=== PATIENT | female | born 1945 | race Two or more races ===

== ENCOUNTER 2016-12-30 15:56 | Inpatient (IN) | payer MEDICARE, OTHER ==
[~2016-12-30] VITALS: Ht 170.2 cm; Wt 113.4 kg
[~2016-12-30 15:56] MED LIST: ASPIRIN EC81 MG ORAL; LEVAQUIN250 M1 ORAL; MEDROL4 MG ORAL; NORCO 5-325 TA1 EAC1 ORAL; NORCO 5-325 TA1 EACH ORAL; SPIRIVA18 MCG INH; THEOPHYLLINE A100 MG ORAL
[2016-12-30] MEDS ORDERED: Ipratropium 0.02% Inh Soln 2.5ml UD HHN ONE (16:15)
[2016-12-30] MEDS ORDERED: cefTRIAXone 1 GM in NS 55 ML IVPB ONE (16:15)
[2016-12-30] MEDS ORDERED: Solu-MEDROL 125mg Inj IVP ONE (16:15)
[2016-12-30] MEDS: Albuterol ud Inhalation HHN SCH ×2 (16:34→16:35)
[2016-12-30 17:08] LABS: BASOPHILS % (AUTO) 2.2 % (0.0-2.0); EOSINOPHILS % (AUTO) 7.6 % (0.0-3.0); MEAN CORPUSCULAR HEMOGLOBIN 30.2 PG (27.0-31.0); MEAN CORPUSCULAR VOLUME 91 FL (80-99); MEAN PLATELET VOLUME 5.1 FL (6.5-10.1); MONOCYTES % (AUTO) 14.6 % (1.0-10.0); NEUTROPHILS % (AUTO) 55.7 % (45.0-75.0); PLATELET COUNT 337 K/UL (150-450); RED BLOOD COUNT 3.54 M/UL (4.20-5.40); RED CELL DISTRIBUTION WIDTH 13.5 % (11.6-14.8); WHITE BLOOD COUNT 7.1 K/UL (4.8-10.8)
[2016-12-30 17:11] LABS: APPEARANCE,URINE CLEAR; KETONES,URINE NEGATIVE (NEGATIVE); LEUKOCYTE ESTERASE ,URINE 1+ (NEGATIVE); NITRITE,URINE NEGATIVE (NEGATIVE); PH,URINE 6 (4.5-8.0); PROTEIN,URINE NEGATIVE (NEGATIVE); UROBILINOGEN,URINE NORMAL MG/DL (0.0-1.0)
[2016-12-30 17:22] LABS: BACTERIA,URINE FEW /HPF; RBC,URINE 0-2 /HPF (0 - 2); SQUAMOUS EPITHELIAL CELL,UR FEW /LPF (NONE/OCC)
[2016-12-30 17:24] LABS: TROPONIN I < 0.30 ng/mL (<=0.30)
[2016-12-30 17:45] LABS: ALANINE AMINOTRANSFERASE 11 U/L (3-33); ANION GAP 14 (5-15); ASPARTATE AMINO TRANSFERASE 23 U/L (5-40); CALCIUM 8.7 mg/dL (8.6-10.2); CARBON DIOXIDE 25 mEQ/L (20-30); CHLORIDE 79 mEQ/L (98-107); CREATININE 0.7 mg/dL (0.5-0.9); HEMOLYSIS 62; POTASSIUM 5.5 mEQ/L (3.4-4.9)
[2016-12-30 17:49] VITALS: BP 138/54
[2016-12-30 17:56] LABS: CKMB 7.8 ng/mL (< 3.8)
[2016-12-30 18:00] LABS: SODIUM 118 mEQ/L (135-145)
[2016-12-30] MEDS ORDERED: Vancomycin 1250mg/D5W 250ml 250 ML IVPB SCH (18:00)
--- NOTE | 2016-12-30 18:01 | Emergency Room Report ---
History of Present Illness General Chief Complaint: Head, Face, Neck Trauma Source: Patient Present Illness HPI 71-year-old female history of COPD and hypertension presenting with shortness of breath for one week. Patient states she was at 711, felt very weak, secondary to chronic knee pain, sat down. Someone called 911 and EMS brought her to the emergency room. Patient states that she has not used any medication for one week because she ran out. Does not have any inhalers. Patient reports chronic cough no change in sputum. Denies any fever or chills. No chest pain. Patient states she is shortness of breath at rest and on exertion. Patient states that she had a right thigh cellulitis treated at an outside hospital a few weeks ago, but states that it is still red and painful. Allergies: Coded Allergies: No Known Allergies (Unverified , 12/10/15) Patient History Last Menstrual Period: na Nursing Documentation-PMH Past Medical History: No History, Except For Hx Cardiac Problems: Yes Hx Hypertension: Yes Hx Asthma: Yes Hx COPD: Yes Hx Diabetes: Yes Hx Cancer: No Hx Gastrointestinal Problems: No Hx Neurological Problems: No Hx Seizures: Yes Physical Exam Vital Signs Date Time Temp Pulse Resp B/P (MAP) Pulse Ox O2 Delivery O2 Flow Rate FiO2 12/30/16 15:37 98.6 104 20 138/54 98 Room Air 12/30/16 16:40 21 Medical Decision Making Diagnostic Impression: Primary Impression: COPD exacerbation Additional Impressions: Cellulitis of right leg Hyponatremia Hyperkalemia ER Course 71 yo female with pmhx of COPD p/w SOB for 3 days. Also with RLE cellulitis apparently Tx ~ 1 week ago. 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 Patient has been treated with combivent x 3, steroids, antibiotics. CXR reveals no acute infiltrate Repeat lung auscultation reveals persistent mild wheezing but improved Patent's remains tachypneic however speaking in complete sentences ABX given to cover for copd exacerbation and RLE cellulitis hyperK - meds given hyponatremic - patient remains awake alert oritned x 3 Disposition: Patient will be admitted to tele Patient remains critical with vital signs revealing tachypnea and hypoxia. Patient requires close monitoring of respiratory status, and nebulizer treatment. Patient also requires close monitoring of electrolyte disturbance IV abx D/W hospitalist Dr Martinez who has accepted admission Please note that this Emergency Department Report was dictated using [employer] supervisor technology software, occasionally this can lead to erroneous entry secondary to interpretation by the dictation equipment. Laboratory Tests Test 12/30/16 16:40 12/30/16 16:50 Urine Color Pale yellow Urine Appearance Clear Urine pH 6 (4.5-8.0) Urine Specific [place] 1.015 (1.005-1.035) Urine Protein Negative (NEGATIVE) Urine Glucose (UA) Negative (NEGATIVE) Urine Ketones Negative (NEGATIVE) Urine Occult Blood Negative (NEGATIVE) Urine Nitrite Negative (NEGATIVE) Urine Bilirubin Negative (NEGATIVE) Urine Urobilinogen Normal MG/DL (0.0-1.0) Urine Leukocyte Esterase 1+ (NEGATIVE) H Urine RBC 0-2 /HPF (0 - 2) Urine WBC 2-4 /HPF (0 - 2) Urine Squamous Epithelial Cells Few /LPF (NONE/OCC) Urine Bacteria Few /HPF (NONE) White Blood Count 7.1 K/UL (4.8-10.8) Red Blood Count 3.54 M/UL (4.20-5.40) L Hemoglobin 10.7 G/DL (12.0-16.0) L Hematocrit 32.4 % (37.0-47.0) L Mean Corpuscular Volume 91 FL (80-99) Mean Corpuscular Hemoglobin 30.2 PG (27.0-31.0) Mean Corpuscular Hemoglobin Concent 33.0 G/DL (32.0-36.0) Red Cell Distribution Width 13.5 % (11.6-14.8) Platelet Count 337 K/UL (150-450) Mean Platelet Volume 5.1 FL (6.5-10.1) L Neutrophils (%) (Auto) 55.7 % (45.0-75.0) Lymphocytes (%) (Auto) 20.0 % (20.0-45.0) Monocytes (%) (Auto) 14.6 % (1.0-10.0) H Eosinophils (%) (Auto) 7.6 % (0.0-3.0) H Basophils (%) (Auto) 2.2 % (0.0-2.0) H Sodium Level 118 mEQ/L (135-145) *L Potassium Level 5.5 mEQ/L (3.4-4.9) H Chloride Level 79 mEQ/L (98-107) L Carbon Dioxide Level 25 mEQ/L (20-30) Anion Gap 14 (5-15) Blood Urea Nitrogen 7 mg/dL (7-23) Creatinine 0.7 mg/dL (0.5-0.9) Estimate Glomerular Filtration Rate mL/min (>60) Glucose Level 95 mg/dL (74-106) Calcium Level 8.7 mg/dL (8.6-10.2) Total Bilirubin 0.5 mg/dL (0.0-1.2) Aspartate Amino Transferase (AST) 23 U/L (5-40) Alanine Aminotransferase (ALT) 11 U/L (3-33) Alkaline Phosphatase 110 U/L (35-104) H Total Creatine Kinase 160 U/L (26-140) H Creatine Kinase MB 7.8 ng/mL (< 3.8) H Creatine Kinase MB Relative Index 4.8 Troponin I < 0.30 ng/mL (<=0.30) Pro-B-Type Natriuretic Peptide 147 pg/mL (0-125) H Total Protein 7.0 g/dL (6.6-8.7) Albumin 3.6 g/dL (3.5-5.2) Globulin 3.4 g/dL Albumin/Globulin Ratio 1.0 (1.0-2.7) EKG Diagnostic Results Rate: normal Rhythm: NSR ST Segments: other - mild peaked T waves Rhythm Strip Diag. Results EP Interpretation: yes Rate: 90 Rhythm: NSR, no PVC's, no ectopy Chest X-Ray Diagnostic Results Chest X-Ray Diagnostic Results : Chest X-Ray Ordered: Yes # of Views/Limited/Complete: 1 View Indication: Shortness of Breath EP Interpretation: Yes Interpretation: no consolidation, no effusion, no pneumothorax, other - hyperinflated lungs Impression: Other - hyper inflated lungs Interpreting ER Provider: Electronically signed by Faustina Lazo MD Last Vital Signs Date Time Temp Pulse Resp B/P (MAP) Pulse Ox O2 Delivery O2 Flow Rate FiO2 12/30/16 17:49 98.6 70 20 138/54 100 Room Air 21 Disposition: ADMITTED INPATIENT Condition: Critical Referrals: NON PHYSICIAN (PCP) Faustina Lazo M.D. Dec 30, 2016 18:01
[2016-12-30] MEDS ORDERED: Calcium Gluconate 1gm/10ml vial IVP ONE (18:15)
[2016-12-30 19:49] VITALS: BP 142/65
[2016-12-30 20:00] VITALS: BP 161/74
[2016-12-30] MEDS ORDERED: Morphine Sulfate 4mg/ml Inj IVP ONE (20:00)
[2016-12-30] MEDS ORDERED: Norco 5mg/325mg tab ORAL PRN (20:30)
[2016-12-30] MEDS ORDERED: DuoNeb 0.5-3(2.5)mg/3ml neb HHN PRN (20:30)
[2016-12-30 20:40] VITALS: BP 147/55
[2016-12-30] MEDS ORDERED: Thiamine 100mg tab ORAL SCH (20:45)
[2016-12-30] MEDS ORDERED: LORazepam Inj 2mg/ml 1ml IV PRN (20:45)
[2016-12-30 22:31] LABS: ANION GAP 8 (5-15); CALCIUM 9.9 mg/dL (8.6-10.2); CARBON DIOXIDE 31 mEQ/L (20-30); CHLORIDE 84 mEQ/L (98-107); CREATININE 0.6 mg/dL (0.5-0.9); HEMOLYSIS 1; SODIUM 123 mEQ/L (135-145)
[2016-12-30] MEDS: Aspirin EC 81mg tab ORAL SCH (22:39)
[2016-12-30] MEDS: Thiamine 100mg tab ORAL SCH (22:39)
[2016-12-30] MEDS: Azithromycin 500 MG in D5W 275 ML IV SCH (22:40)
[2016-12-30] MEDS: Heparin 5000 units/ml inj SUBQ SCH (22:41)
[2016-12-30 22:42] LABS: TROPONIN I < 0.30 ng/mL (<=0.30)
[2016-12-31] VITALS: BP 142/72
[2016-12-31] MEDS: Azithromycin 500 MG in D5W 275 ML IV SCH (03:00)
[2016-12-31 04:00] VITALS: BP 161/83
[2016-12-31 08:00] VITALS: BP 154/82
[2016-12-31 08:06] LABS: MEAN CORPUSCULAR HEMOGLOBIN 30.3 PG (27.0-31.0); MEAN CORPUSCULAR HGB CONC 32.5 G/DL (32.0-36.0); MEAN CORPUSCULAR VOLUME 93 FL (80-99); MEAN PLATELET VOLUME 4.8 FL (6.5-10.1); PLATELET COUNT 451 K/UL (150-450); RED BLOOD COUNT 3.95 M/UL (4.20-5.40); RED CELL DISTRIBUTION WIDTH 13.5 % (11.6-14.8); WHITE BLOOD COUNT 5.6 K/UL (4.8-10.8)
[2016-12-31] MEDS ORDERED: Promethazine/Codeine 5ml UD ORAL PRN (08:30)
[2016-12-31 08:32] LABS: ALANINE AMINOTRANSFERASE 11 U/L (3-33); ANION GAP 13 (5-15); ASPARTATE AMINO TRANSFERASE 15 U/L (5-40); CALCIUM 10.5 mg/dL (8.6-10.2); CARBON DIOXIDE 29 mEQ/L (20-30); CHLORIDE 89 mEQ/L (98-107); CREATININE 0.9 mg/dL (0.5-0.9); HEMOLYSIS 0; POTASSIUM 5.6 mEQ/L (3.4-4.9); SODIUM 131 mEQ/L (135-145)
--- NOTE | 2016-12-31 08:44 | History & Physical ---
History and Physical History & Physicial seen and examined. Dictation completed Sebastian Martinez MD Dec 31, 2016 08:44
--- NOTE | 2016-12-31 08:46 | General Progress Note ---
Assessment/Plan Status: stable Assessment/Plan 1- COPD exacerbation 2- Imbalance 3- DT'S 4. Homeless 5. HypoNatremia 5. Anxiety//Depression Plan: Psych ID nephro consulted Subjective ROS Limited/Unobtainable: No Constitutional: Reports: malaise HEENT: Reports: no symptoms Cardiovascular: Reports: no symptoms Respiratory: Reports: no symptoms Allergies: Coded Allergies: No Known Allergies (Unverified , 12/10/15) Objective Last 24 Hour Vital Signs Date Time Temp Pulse Resp B/P (MAP) Pulse Ox O2 Delivery O2 Flow Rate FiO2 12/31/16 07:32 95 20 Room Air 12/31/16 04:00 98.2 93 22 161/83 94 Room Air 12/31/16 04:00 95 12/31/16 00:00 99 12/31/16 00:00 98.8 101 23 142/72 Room Air 12/30/16 20:40 98.4 93 22 147/55 100 Room Air 12/30/16 20:40 98.6 93 22 147/55 100 Room Air 12/30/16 20:35 98.4 12/30/16 20:00 98.4 92 22 161/74 98 Room Air 21 12/30/16 20:00 98.4 92 22 161/74 98 Room Air 12/30/16 19:49 98.4 85 20 142/65 100 Room Air 12/30/16 17:49 98.6 70 20 138/54 100 Room Air 21 12/30/16 16:55 96 20 100 Room Air 12/30/16 16:55 96 22 100 Room Air 12/30/16 16:40 98 20 100 Room Air 12/30/16 16:40 98 20 100 Room Air 12/30/16 16:28 101 20 Room Air 12/30/16 16:25 101 20 95 Room Air 12/30/16 15:37 98.6 104 20 138/54 98 Room Air Laboratory Tests 12/30/16 16:40: Urine Color Pale yellow, Urine Appearance Clear, Urine pH 6, Urine Specific [place] 1.015, Urine Protein Negative, Urine Glucose (UA) Negative, Urine Ketones Negative, Urine Occult Blood Negative, Urine Nitrite Negative, Urine Bilirubin Negative, Urine Urobilinogen Normal, Urine Leukocyte Esterase 1+H, Urine RBC 0-2, Urine WBC 2-4, Urine Squamous Epithelial Cells Few, Urine Bacteria Few 12/30/16 16:50: White Blood Count 7.1, Red Blood Count 3.54L, Hemoglobin 10.7L, Hematocrit 32.4L , Mean Corpuscular Volume 91, Mean Corpuscular Hemoglobin 30.2, Mean Corpuscular Hemoglobin Concent 33.0, Red Cell Distribution Width 13.5, Platelet Count 337, Mean Platelet Volume 5.1L, Neutrophils (%) (Auto) 55.7, Lymphocytes ( %) (Auto) 20.0, Monocytes (%) (Auto) 14.6H, Eosinophils (%) (Auto) 7.6H, Basophils (%) (Auto) 2.2H, D-Dimer 1033H, Sodium Level 118*L, Potassium Level 5.5H, Chloride Level 79L, Carbon Dioxide Level 25, Anion Gap 14, Blood Urea Nitrogen 7, Creatinine 0.7, Estimat Glomerular Filtration Rate , Glucose Level 95, Calcium Level 8.7, Total Bilirubin 0.5, Aspartate Amino Transf (AST/SGOT) 23 , Alanine Aminotransferase (ALT/SGPT) 11, Alkaline Phosphatase 110H, Total Creatine Kinase 160H, Creatine Kinase MB 7.8H, Creatine Kinase MB Relative Index 4.8, Troponin I < 0.30, Pro-B-Type Natriuretic Peptide 147H, Total Protein 7.0, Albumin 3.6, Globulin 3.4, Albumin/Globulin Ratio 1.0 12/30/16 21:15: Sodium Level 123L, Potassium Level 5.0H, Chloride Level 84L, Carbon Dioxide Level 31H, Anion Gap 8, Blood Urea Nitrogen 7, Creatinine 0.6, Estimat Glomerular Filtration Rate , Glucose Level 92, Calcium Level 9.9, Troponin I < 0.30 12/31/16 07:30: White Blood Count 5.6, Red Blood Count 3.95L, Hemoglobin 12.0, Hematocrit 36.8L , Mean Corpuscular Volume 93, Mean Corpuscular Hemoglobin 30.3, Mean Corpuscular Hemoglobin Concent 32.5, Red Cell Distribution Width 13.5, Platelet Count 451H, Mean Platelet Volume 4.8L, Neutrophils (%) (Auto) , Lymphocytes (%) (Auto) , Monocytes (%) (Auto) , Eosinophils (%) (Auto) , Basophils (%) (Auto) , Sodium Level [Pending], Potassium Level [Pending], Chloride Level [Pending], Carbon Dioxide Level [Pending], Blood Urea Nitrogen [Pending], Creatinine [ Pending], Estimat Glomerular Filtration Rate [Pending], Glucose Level [Pending] , Calcium Level [Pending], Total Bilirubin [Pending], Aspartate Amino Transf ( AST/SGOT) [Pending], Alanine Aminotransferase (ALT/SGPT) [Pending], Alkaline Phosphatase [Pending], Total Protein [Pending], Albumin [Pending], Globulin [ Pending], Neutrophils % (Manual) [Pending], Lymphocytes % (Manual) [Pending], Platelet Estimate [Pending], Platelet Morphology [Pending] Height (Feet): 5 Height (Inches): 7.00 Weight (Pounds): 250 General Appearance: no apparent distress EENT: PERRL/EOMI Neck: supple Cardiovascular: normal rate Respiratory/Chest: lungs clear Abdomen: soft Extremities: non-tender Neurologic: shaft tender II-XII grossly normal, other - depressed, anxious Sebastian Martinez MD Dec 31, 2016 08:46
[2016-12-31] MEDS ORDERED: Solu-MEDROL 40mg Inj IVP SCH (09:00)
[2016-12-31] MEDS ORDERED: LORazepam 1mg tab ORAL PRN (09:00)
[2016-12-31] MEDS ORDERED: chlordiazePOXIDE 25mg Cap ORAL PRN ×2 (09:00→23:45)
[2016-12-31] MEDS: Aspirin EC 81mg tab ORAL SCH (09:37)
[2016-12-31] MEDS: Thiamine 100mg tab ORAL SCH (09:38)
[2016-12-31] MEDS: Heparin 5000 units/ml inj SUBQ SCH ×2 (09:41→21:41)
[2016-12-31 09:51] LABS: INR 0.9 (0.9-1.1); PROTHROMBIN TIME 9.8 SEC (9.30-11.50)
[2016-12-31 09:51] LABS: BAND NEUTROPHILS % (MANUAL) 0 % (0-8); BASOPHILS % (MANUAL) 0 % (0-2); EOSINOPHILS % (MANUAL) 0 % (0-3); LYMPHOCYTES % (MANUAL) 9 % (20-45); NEUTROPHILS % (MANUAL) 89 % (45-75); PLATELET ESTIMATE ADEQUATE; PLATELET MORPHOLOGY NORMAL; TOTAL CELLS COUNTED 100
[2016-12-31 10:04] LABS: PATH BLOOD SMEAR/OMC SENT TO PATHOLOGIST; RETICULOCYTE COUNT 1.1 % (0.0-2.0)
[2016-12-31 10:19] LABS: ERYTHROCYTE SEDIMENTATION RATE 61 MM/HR (0-30)
--- NOTE | 2016-12-31 11:23 | Diagnostic Imaging Report ---
Indication: Chest pain Technique: One view of the chest Comparison: 03/18/2016 Findings: Lungs and pleural spaces are clear. Heart size is upper limits of normal. Previously demonstrated basilar atelectasis or consolidation is no longer evident. Lucencies in the bilateral lung apices may reflect hyperinflation Impression: No definite acute process Possible COPD changes This agrees with the preliminary interpretation provided overnight by [facility] teleradiology service.
--- NOTE | 2016-12-31 11:23 | Consultation ---
Consult Note Consult Note asked to maryal for low Na 71-year-old female history of COPD and hypertension presenting with shortness of breath for one week. Patient states she was at 711, felt very weak, secondary to chronic knee pain, sat down. Someone called 911 and EMS brought her to the emergency room. Patient states that she has not used any medication for one week because she ran out. Does not have any inhalers. Patient reports chronic cough no change in sputum. Denies any fever or chills. No chest pain. Patient states she is shortness of breath at rest and on exertion. Patient states that she had a right thigh cellulitis treated at an outside hospital a few weeks ago, but states that it is still red and painful. Past Medical History: Hx Cardiac Problems: Yes Hx Hypertension: Yes Hx Asthma: Yes Hx COPD: Yes Hx Diabetes: Yes Hx Seizures: Yes Assessment/Plan 1- COPD exacerbation 2- Imbalance 3- DT'S 4. Homeless 5. HypoNatremia, unclear etiology- likely depletional- fairly corrected by saline now- 6. Anxiety//Depression 7. High K likely poor Phlebotomy and related hemolysis 8. HTN Plan: Librium - Norvas Breathing Treatment Pulmonary support monitor HENRIQUE Sierra Dec 31, 2016 11:23
[2016-12-31] MEDS ORDERED: chlordiazePOXIDE 25mg Cap ORAL SCH (11:45)
[2016-12-31 11:59] LABS: CHOLESTEROL/HDL RATIO 2.1 (3.3-4.4); HEMOGLOBIN A1C 5.6 % (< 6.0)
[2016-12-31 12:00] VITALS: BP 154/80
[2016-12-31] MEDS ORDERED: PredniSONE 20mg tab ORAL SCH (12:00)
[2016-12-31] MEDS ORDERED: PredniSONE 20mg tab ORAL ONE (12:00)
--- NOTE | 2016-12-31 12:33 | Consultation ---
History of Present Illness General Date patient seen: Dec 31, 2016 Chief Complaint: Head, Face, Neck Trauma Referring physician: Dr. Martinez Reason for Consultation: dysnea Present Illness HPI 71-year-old female history of COPD and hypertension presenting with shortness of breath for one week. P Someone called 911 and EMS brought her to the emergency room. Patient reports chronic cough no change in sputum. Denies any fever or chills. No chest pain. She is shortness of breath at rest and on exertion. She had a right thigh cellulitis treated at an outside hospital a few weeks ago, but states that it is still red and painful. Allergies: Coded Allergies: No Known Allergies (Unverified , 12/10/15) Medication History Scheduled Aspirin Ec* (Aspirin Ec*), 81 MG ORAL DAILY, (Reported) Levofloxacin* (Levaquin*), 250 MG ORAL DAILY Methylprednisolone* (Medrol*), 4 MG ORAL DAILY Theophylline (Theodur*), 100 MG ORAL EVERY 12 HOURS Tiotropium [place]* (Spiriva*), 1 PUFF INH DAILY, (Reported) Scheduled PRN Hydrocodone Bit/Acetaminophen 5-325* (Redmond 5-325 Tablet*), 1 TAB ORAL Q4H PRN for For Pain Hydrocodone Bit/Acetaminophen 5-325* ([place] 5-325*), 1 TAB ORAL Q4H PRN for For Pain Patient History Healthcare decision maker Resuscitation status Full Code Advanced Directive on File Past Medical/Surgical History Past Medical/Surgical History: (1) HTN (hypertension) (2) Alcohol dependence Review of Systems All Other Systems: negative except mentioned in HPI Physical Exam General Appearance: WD/WN Lines, tubes and drains: peripheral HEENT: normocephalic, atraumatic Neck: non-tender, normal alignment Respiratory/Chest: chest wall non-tender, lungs clear Breasts: no masses Cardiovascular/Chest: normal peripheral pulses Abdomen: normal bowel sounds, non tender Extremities: normal range of motion Skin Exam: normal pigmentation Last 24 Hour Vital Signs Date Time Temp Pulse Resp B/P (MAP) Pulse Ox O2 Delivery O2 Flow Rate FiO2 12/31/16 12:13 100 154/82 12/31/16 12:00 97.9 93 21 154/80 95 Room Air 12/31/16 11:30 100 20 100 Room Air 21 12/31/16 11:25 101 20 100 Room Air 12/31/16 08:00 98.1 99 21 154/82 98 Room Air 12/31/16 07:44 107 12/31/16 07:32 95 20 Room Air 12/31/16 04:00 98.2 93 22 161/83 94 Room Air 12/31/16 04:00 95 12/31/16 00:00 99 12/31/16 00:00 98.8 101 23 142/72 Room Air 12/30/16 20:40 98.4 93 22 147/55 100 Room Air 12/30/16 20:40 98.6 93 22 147/55 100 Room Air 21 12/30/16 20:35 98.4 12/30/16 20:00 98.4 92 22 161/74 98 Room Air 21 12/30/16 20:00 98.4 92 22 161/74 98 Room Air 12/30/16 19:49 98.4 85 20 142/65 100 Room Air 12/30/16 17:49 98.6 70 20 138/54 100 Room Air 12/30/16 16:55 96 20 100 Room Air 12/30/16 16:55 96 22 100 Room Air 12/30/16 16:40 98 20 100 Room Air 12/30/16 16:40 98 20 100 Room Air 21 12/30/16 16:28 101 20 Room Air 12/30/16 16:25 101 20 95 Room Air 12/30/16 15:37 98.6 104 20 138/54 98 Room Air Laboratory Tests Test 12/30/16 16:40 12/30/16 16:50 12/30/16 21:15 12/31/16 07:30 Urine Color Pale yellow Urine Appearance Clear Urine pH 6 (4.5-8.0) Urine Specific [place] 1.015 (1.005-1.035) Urine Protein Negative (NEGATIVE) Urine Glucose (UA) Negative (NEGATIVE) Urine Ketones Negative (NEGATIVE) Urine Occult Blood Negative (NEGATIVE) Urine Nitrite Negative (NEGATIVE) Urine Bilirubin Negative (NEGATIVE) Urine Urobilinogen Normal MG/DL (0.0-1.0) Urine Leukocyte Esterase 1+ (NEGATIVE) H Urine RBC 0-2 /HPF (0 - 2) Urine WBC 2-4 /HPF (0 - 2) Urine Squamous Epithelial Cells Few /LPF (NONE/OCC) Urine Bacteria Few /HPF (NONE) White Blood Count 7.1 K/UL (4.8-10.8) 5.6 K/UL (4.8-10.8) Red Blood Count 3.54 M/UL (4.20-5.40) L 3.95 M/UL (4.20-5.40) L Hemoglobin 10.7 G/DL (12.0-16.0) L 12.0 G/DL (12.0-16.0) Hematocrit 32.4 % (37.0-47.0) L 36.8 % (37.0-47.0) L Mean Corpuscular Volume 91 FL (80-99) 93 FL (80-99) Mean Corpuscular Hemoglobin 30.2 PG (27.0-31.0) 30.3 PG (27.0-31.0) Mean Corpuscular Hemoglobin Concent 33.0 G/DL (32.0-36.0) 32.5 G/DL (32.0-36.0) Red Cell Distribution Width 13.5 % (11.6-14.8) 13.5 % (11.6-14.8) Platelet Count 337 K/UL (150-450) 451 K/UL (150-450) H Mean Platelet Volume 5.1 FL (6.5-10.1) L 4.8 FL (6.5-10.1) L Neutrophils (%) (Auto) 55.7 % (45.0-75.0) % (45.0-75.0) Lymphocytes (%) (Auto) 20.0 % (20.0-45.0) % (20.0-45.0) Monocytes (%) (Auto) 14.6 % (1.0-10.0) H % (1.0-10.0) Eosinophils (%) (Auto) 7.6 % (0.0-3.0) H % (0.0-3.0) Basophils (%) (Auto) 2.2 % (0.0-2.0) H % (0.0-2.0) D-Dimer 1033 ng/mL (<500) H Sodium Level 118 mEQ/L (135-145) *L 123 mEQ/L (135-145) L 131 mEQ/L (135-145) L Potassium Level 5.5 mEQ/L (3.4-4.9) H 5.0 mEQ/L (3.4-4.9) H 5.6 mEQ/L (3.4-4.9) H Chloride Level 79 mEQ/L (98-107) L 84 mEQ/L (98-107) L 89 mEQ/L (98-107) L Carbon Dioxide Level 25 mEQ/L (20-30) 31 mEQ/L (20-30) H 29 mEQ/L (20-30) Anion Gap 14 (5-15) 8 (5-15) 13 (5-15) Blood Urea Nitrogen 7 mg/dL (7-23) 7 mg/dL (7-23) 13 mg/dL (7-23) Creatinine 0.7 mg/dL (0.5-0.9) 0.6 mg/dL (0.5-0.9) 0.9 mg/dL (0.5-0.9) Estimat Glomerular Filtration Rate mL/min (>60) mL/min (>60) mL/min (>60) Glucose Level 95 mg/dL (74-106) 92 mg/dL (74-106) 191 mg/dL (74-106) #H Calcium Level 8.7 mg/dL (8.6-10.2) 9.9 mg/dL (8.6-10.2) 10.5 mg/dL (8.6-10.2) H Total Bilirubin 0.5 mg/dL (0.0-1.2) 0.4 mg/dL (0.0-1.2) Aspartate Amino Transf (AST/SGOT) 23 U/L (5-40) 15 U/L (5-40) Alanine Aminotransferase (ALT/SGPT) 11 U/L (3-33) 11 U/L (3-33) Alkaline Phosphatase 110 U/L (35-104) H 123 U/L (35-104) H Total Creatine Kinase 160 U/L (26-140) H Creatine Kinase MB 7.8 ng/mL (< 3.8) H Creatine Kinase MB Relative Index 4.8 Troponin I < 0.30 ng/mL (<=0.30) < 0.30 ng/mL (<=0.30) Pro-B-Type Natriuretic Peptide 147 pg/mL (0-125) H Total Protein 7.0 g/dL (6.6-8.7) 8.0 g/dL (6.6-8.7) Albumin 3.6 g/dL (3.5-5.2) 4.1 g/dL (3.5-5.2) Globulin 3.4 g/dL 3.9 g/dL Albumin/Globulin Ratio 1.0 (1.0-2.7) 1.0 (1.0-2.7) Differential Total Cells Counted 100 Neutrophils % (Manual) 89 % (45-75) H Lymphocytes % (Manual) 9 % (20-45) L Monocytes % (Manual) 2 % (1-10) Eosinophils % (Manual) 0 % (0-3) Basophils % (Manual) 0 % (0-2) Band Neutrophils 0 % (0-8) Platelet Estimate Adequate Platelet Morphology Normal Red Blood Cell Morphology Normal Erythrocyte Sedimentation Rate 61 MM/HR (0-30) H Reticulocyte Count 1.1 % (0.0-2.0) Hemoglobin A1c 5.6 % (< 6.0) Osmolality 276 mOsm/kg (297-317) L Iron Level 31 ug/dL (37-145) L Total Iron Binding Capacity 327 ug/dL (250-400) Percent Iron Saturation 9 % (15-50) L Unsaturated Iron Binding 296 ug/dL (112-346) Ferritin 139 ng/mL (13-150) Lactate Dehydrogenase 319 U/L (135-230) H Triglycerides Level 72 mg/dL (< 150) Cholesterol Level 184 mg/dL (< 200) LDL Cholesterol 82 mg/dL (60-99) HDL Cholesterol 88 mg/dL (> 60) H Cholesterol/HDL Ratio 2.1 (3.3-4.4) L Carcinoembryonic Antigen 2.8 ng/mL Vitamin B12 Level 671 pg/mL (211-946) Test 12/31/16 09:15 Prothrombin Time 9.8 SEC (9.30-11.50) Prothromb Time International Ratio 0.9 (0.9-1.1) Activated Partial Thromboplast Time 33 SEC (23-33) Folate Pending Height (Feet): 5 Height (Inches): 7.00 Weight (Pounds): 250 Medications Current Medications Medications (Trade) Dose Ordered Sig/Isabella Route PRN Reason Start Time Stop Time Status Last Admin Dose Admin Acetaminophen/ Hydrocodone Bitart ([place] 5/325) 1 tab Q4H PRN ORAL PAIN 4-10 12/30/16 20:30 01/06/17 20:29 Albuterol/ Ipratropium (DuoNeb 0.5-3(2.5)mg/3ml) 3 ml Q4H PRN HHN Shortness of Breath 12/30/16 20:30 01/04/17 20:29 12/31/16 11:32 Amlodipine Besylate (Norvasc) 5 mg DAILY ORAL 12/31/16 12:00 01/30/17 11:59 12/31/16 12:13 Amoxicillin/ Clavulanate Potassium (Augmentin) 875 mg EVERY 12 HOURS ORAL 12/31/16 21:00 01/07/17 20:59 Aspirin (Ecotrin) 81 mg DAILY ORAL 12/30/16 21:00 01/29/17 20:59 12/31/16 09:37 Chlordiazepoxide (Librium) 25 mg Q8HR ORAL 12/31/16 14:00 01/07/17 13:59 Folic Acid (Folate) 1 mg DAILY ORAL 12/31/16 09:00 01/30/17 08:59 12/31/16 09:00 Heparin Sodium (Porcine) (Heparin 5000 units/ml) 5,000 units EVERY 12 HOURS SUBQ 12/30/16 21:00 01/29/17 20:59 12/31/16 09:41 Lorazepam (Ativan 2mg/ml 1ml) 1 mg Q4H PRN IV For Anxiety 12/30/16 20:45 01/06/17 20:44 Lorazepam (Ativan) 1 mg Q6H PRN ORAL For Anxiety 12/31/16 09:00 01/07/17 08:59 Pantoprazole (Protonix) 40 mg BID ORAL 12/31/16 18:00 01/29/17 20:59 Prednisone (predniSONE) 60 mg DAILY ORAL 12/31/16 12:00 01/30/17 11:59 12/31/16 12:12 Promethazine HCl/ Codeine (Phenergan with Codeine) 5 ml Q4H PRN ORAL For Cough 12/31/16 08:30 01/30/17 08:29 Thiamine HCl (Vitamin B1) 100 mg DAILY ORAL 12/30/16 20:45 01/29/17 20:44 12/31/16 09:38 Assessment/Plan Problem List: (1) COPD exacerbation ICD Codes: J44.1 - Chronic obstructive pulmonary disease with (acute) exacerbation SNOMED: 704172846 (2) Purulent bronchitis ICD Codes: J41.1 - Mucopurulent chronic bronchitis SNOMED: 13883636 (3) Cellulitis of right leg ICD Codes: L03.115 - Cellulitis of right lower limb SNOMED: 272923643 (4) Alcohol dependence ICD Codes: F10.20 - Alcohol dependence, uncomplicated SNOMED: 15892446, 070115631 (5) HTN (hypertension) ICD Codes: I10 - Essential (primary) hypertension SNOMED: 52331546 Assessment/Plan respiratory treatment IV or po steroids check sputum social service consult NOREEN COLON Dec 31, 2016 12:33
[2016-12-31] MEDS: chlordiazePOXIDE 25mg Cap ORAL SCH ×2 (14:00→21:40)
[2016-12-31] MEDS: Furosemide 40mg tab ORAL SCH ×2 (15:30→15:52)
[2016-12-31] MEDS ORDERED: NS 550ML IV ONE (15:46)
[2016-12-31] MEDS ORDERED: Tubing IV Secondary IV ONE (15:46)
[2016-12-31] MEDS ORDERED: NS 275ml ONE (15:46)
[2016-12-31 16:00] VITALS: BP 125/64
--- NOTE | 2016-12-31 19:15 | History and Physical Report ---
DATE OF ADMISSION: 12/30/2016 SOURCE OF INFORMATION: EMR. HISTORY OF PRESENT ILLNESS: The patient is a 71-year-old female with history of alcoholism. The patient reported that she is homeless and was transferred to the emergency room secondary to fall down. The patient appears to be poor historian. She still is delirious secondary to alcohol. Within this limitation, there is no chest pain or shortness of breath. There is no reported abnormal bleeding. REVIEW OF SYSTEMS: Twelve elements of review of systems are reviewed with the patient. Pertinent positives and negatives reported as above. PAST MEDICAL HISTORY: Alcoholism, hypertension, presyncope, hyponatremia, COPD, and asthma. CURRENT HOSPITAL MEDICATIONS: Including DuoNeb, azithromycin, lorazepam, promethazine, and thiamine. ALLERGIES: NKDA. FAMILY HISTORY: Reviewed and noncontributory. SOCIAL HISTORY: The patient reported that she is homeless. Denies history of illicit drug abuse. Positive for history of alcoholism, reported more than 30 years of heavy drinking of alcohol (quantification limited). PHYSICAL EXAMINATION: VITAL SIGNS: Blood pressure 140/50, temperature 98.2, pulse rate 95-110, respiratory rate 18-20, and pulse oximetry 98% on room air. HEAD AND NECK: Atraumatic and normocephalic. CHEST: Clear to auscultation. HEART: S1 and S2. Regular rate and rhythm. ABDOMEN: Soft. No organomegaly. MUSCULOSKELETAL: Positive for redness in the lower extremities. LUNGS: Shows diffuse bronchial breathing sounds and minimal wheezing in the base. NEUROLOGIC: The patient is awake, alert, and oriented x3. LABORATORY DATA: Labs results dated 12/30/2016 shows WBC 7.1, hemoglobin 10.7, and platelets 337,000. Sodium 118, potassium 5.5, BUN 7, and creatinine 0.7. Urinalysis is normal. ASSESSMENT AND PLAN: 1. Alcoholic encephalopathy. 2. Alcoholic withdrawal. 3. Chronic obstructive pulmonary disease exacerbation. 4. Hyponatremia. 5. Hyperkalemia. 6. Anxiety/depression. 7. Homeless. 8. Gastrointestinal and deep vein thrombosis prophylaxis. PLAN OF CARE: I will consult nephrology. Given the high levels of D-dimer and the redness in the lower extremity, we will check the lower extremity duplex. Continue with the antibiotic, steroids, and breathing treatments. Sebastian Martinez M.D. DR: SARAH JOB#: [id number] CC:
[2016-12-31 20:00] VITALS: BP 165/80
[2016-12-31] MEDS ORDERED: Augmentin 875mg Tab ORAL SCH (21:00)
--- NOTE | 2016-12-31 23:46 | Consultation ---
History of Present Illness General Chief Complaint: Head, Face, Neck Trauma Referring physician: Dr. Martinez Reason for Consultation: dysnea Present Illness HPI 71-year-old female with history of alcoholism. The patient reported that she is homeless and was transferred to the emergency room secondary to fall down. the pt was irritable and uncooperative the pt made racial comments. the pt was disrespectful and condescending. the pt endorses, irritable and depressed mood. anhedonia, anxiety, and poor memory. Allergies: Coded Allergies: No Known Allergies (Unverified , 12/10/15) Medication History Scheduled Aspirin Ec* (Aspirin Ec*), 81 MG ORAL DAILY, (Reported) Levofloxacin* (Levaquin*), 250 MG ORAL DAILY Methylprednisolone* (Medrol*), 4 MG ORAL DAILY Theophylline (Theodur*), 100 MG ORAL EVERY 12 HOURS Tiotropium [place]* (Spiriva*), 1 PUFF INH DAILY, (Reported) Scheduled PRN Hydrocodone Bit/Acetaminophen 5-325* ([place] 5-325 Tablet*), 1 TAB ORAL Q4H PRN for For Pain Hydrocodone Bit/Acetaminophen 5-325* ([place] 5-325*), 1 TAB ORAL Q4H PRN for For Pain Patient History History Provided By: Patient, Medical Record, PMD Healthcare decision maker Resuscitation status Full Code Advanced Directive on File Past Medical/Surgical History Past Medical/Surgical History: (1) Near syncope (2) Hyperkalemia (3) Hyponatremia (4) COPD exacerbation (5) Cellulitis of right leg (6) Alcohol dependence (7) HTN (hypertension) (8) Purulent bronchitis (9) SOB (shortness of breath) Review of Systems Constitutional: Reports: malaise, weakness Psychiatric: Reports: anxiety, depressed feelings, emotional problems Physical Exam General Appearance: no apparent distress, alert, overweight Neurologic: alert, oriented x 3, responsive, depressed affect Last 24 Hour Vital Signs Date Time Temp Pulse Resp B/P (MAP) Pulse Ox O2 Delivery O2 Flow Rate FiO2 12/31/16 20:00 95.9 108 20 165/80 99 Room Air 12/31/16 20:00 120 12/31/16 16:00 119 12/31/16 16:00 97.2 110 22 125/64 99 Room Air 12/31/16 12:13 100 154/82 12/31/16 12:00 100 12/31/16 12:00 97.9 93 21 154/80 95 Room Air 12/31/16 11:30 100 20 100 Room Air 21 12/31/16 11:25 101 20 100 Room Air 12/31/16 08:00 98.1 99 21 154/82 98 Room Air 12/31/16 07:44 107 12/31/16 07:32 95 20 Room Air 12/31/16 04:00 98.2 93 22 161/83 94 Room Air 12/31/16 04:00 95 12/31/16 00:00 99 12/31/16 00:00 98.8 101 23 142/72 Room Air Intake and Output 12/31/16 01/01/17 19:00 07:00 Intake Total 480 ml Output Total 1150 ml Balance -670 ml Intake Oral 480 ml Output Urine Total 1150 ml Laboratory Tests Test 12/31/16 07:30 12/31/16 09:15 12/31/16 14:29 12/31/16 23:20 White Blood Count 5.6 K/UL (4.8-10.8) Red Blood Count 3.95 M/UL (4.20-5.40) L Hemoglobin 12.0 G/DL (12.0-16.0) Hematocrit 36.8 % (37.0-47.0) L Mean Corpuscular Volume 93 FL (80-99) Mean Corpuscular Hemoglobin 30.3 PG (27.0-31.0) Mean Corpuscular Hemoglobin Concent 32.5 G/DL (32.0-36.0) Red Cell Distribution Width 13.5 % (11.6-14.8) Platelet Count 451 K/UL (150-450) H Mean Platelet Volume 4.8 FL (6.5-10.1) L Neutrophils (%) (Auto) % (45.0-75.0) Lymphocytes (%) (Auto) % (20.0-45.0) Monocytes (%) (Auto) % (1.0-10.0) Eosinophils (%) (Auto) % (0.0-3.0) Basophils (%) (Auto) % (0.0-2.0) Differential Total Cells Counted 100 Neutrophils % (Manual) 89 % (45-75) H Lymphocytes % (Manual) 9 % (20-45) L Monocytes % (Manual) 2 % (1-10) Eosinophils % (Manual) 0 % (0-3) Basophils % (Manual) 0 % (0-2) Band Neutrophils 0 % (0-8) Platelet Estimate Adequate Platelet Morphology Normal Red Blood Cell Morphology Normal Erythrocyte Sedimentation Rate 61 MM/HR (0-30) H Reticulocyte Count 1.1 % (0.0-2.0) Sodium Level 131 mEQ/L (135-145) L Potassium Level 5.6 mEQ/L (3.4-4.9) H Chloride Level 89 mEQ/L (98-107) L Carbon Dioxide Level 29 mEQ/L (20-30) Anion Gap 13 (5-15) Blood Urea Nitrogen 13 mg/dL (7-23) Creatinine 0.9 mg/dL (0.5-0.9) Estimat Glomerular Filtration Rate mL/min (>60) Glucose Level 191 mg/dL (74-106) #H Hemoglobin A1c 5.6 % (< 6.0) Osmolality 276 mOsm/kg (297-317) L Calcium Level 10.5 mg/dL (8.6-10.2) H Iron Level 31 ug/dL (37-145) L Total Iron Binding Capacity 327 ug/dL (250-400) Percent Iron Saturation 9 % (15-50) L Unsaturated Iron Binding 296 ug/dL (112-346) Ferritin 139 ng/mL (13-150) Total Bilirubin 0.4 mg/dL (0.0-1.2) Aspartate Amino Transf (AST/SGOT) 15 U/L (5-40) Alanine Aminotransferase (ALT/SGPT) 11 U/L (3-33) Alkaline Phosphatase 123 U/L (35-104) H Lactate Dehydrogenase 319 U/L (135-230) H Total Protein 8.0 g/dL (6.6-8.7) Albumin 4.1 g/dL (3.5-5.2) Globulin 3.9 g/dL Albumin/Globulin Ratio 1.0 (1.0-2.7) Triglycerides Level 72 mg/dL (< 150) Cholesterol Level 184 mg/dL (< 200) LDL Cholesterol 82 mg/dL (60-99) HDL Cholesterol 88 mg/dL (> 60) H Cholesterol/HDL Ratio 2.1 (3.3-4.4) L Carcinoembryonic Antigen 2.8 ng/mL Vitamin B12 Level 671 pg/mL (211-946) Prothrombin Time 9.8 SEC (9.30-11.50) Prothromb Time International Ratio 0.9 (0.9-1.1) Activated Partial Thromboplast Time 33 SEC (23-33) Uric Acid 5.2 mg/dL (3.0-7.5) Folate Pending Urine Osmolality 277 mOsm/kg (429-449) L Stool Occult Blood Pending Height (Feet): 5 Height (Inches): 7.00 Weight (Pounds): 250 Medications Current Medications Medications (Trade) Dose Ordered Sig/Isabella Route PRN Reason Start Time Stop Time Status Last Admin Dose Admin Acetaminophen/ Hydrocodone Bitart ([place] 5/325) 1 tab Q4H PRN ORAL PAIN 4-10 12/30/16 20:30 01/06/17 20:29 12/31/16 23:17 Albuterol/ Ipratropium (DuoNeb 0.5-3(2.5)mg/3ml) 3 ml Q4H PRN HHN Shortness of Breath 12/30/16 20:30 01/04/17 20:29 12/31/16 11:32 Amlodipine Besylate (Norvasc) 5 mg DAILY ORAL 12/31/16 12:00 01/30/17 11:59 12/31/16 12:13 Aspirin (Ecotrin) 81 mg DAILY ORAL 12/30/16 21:00 01/29/17 20:59 12/31/16 09:37 Azithromycin (Zithromax) 250 mg DAILY ORAL 01/01/17 09:00 01/04/17 08:59 Chlordiazepoxide (Librium) 25 mg Q8HR ORAL 12/31/16 14:00 01/07/17 13:59 12/31/16 21:40 Folic Acid (Folate) 1 mg DAILY ORAL 12/31/16 09:00 01/30/17 08:59 12/31/16 09:00 Furosemide (Lasix) 40 mg DAILY ORAL 12/31/16 15:30 01/30/17 15:29 Heparin Sodium (Porcine) (Heparin 5000 units/ml) 5,000 units EVERY 12 HOURS SUBQ 12/30/16 21:00 01/29/17 20:59 12/31/16 21:41 Lorazepam (Ativan 2mg/ml 1ml) 1 mg Q4H PRN IV For Anxiety 12/30/16 20:45 01/06/17 20:44 Lorazepam (Ativan) 1 mg Q6H PRN ORAL For Anxiety 12/31/16 09:00 01/07/17 08:59 Pantoprazole (Protonix) 40 mg BID ORAL 12/31/16 18:00 01/29/17 20:59 12/31/16 17:19 Prednisone (predniSONE) 60 mg DAILY ORAL 12/31/16 12:00 01/30/17 11:59 12/31/16 12:12 Promethazine HCl/ Codeine (Phenergan with Codeine) 5 ml Q4H PRN ORAL For Cough 12/31/16 08:30 01/30/17 08:29 Thiamine HCl (Vitamin B1) 100 mg DAILY ORAL 12/30/16 20:45 01/29/17 20:44 12/31/16 09:38 Assessment/Plan Status: doing well, stable Assessment/Plan alcohol dependence MDD fluoxetine 20mg librium 25mg tid prn thiamine' folate Ivan Man M.D. Dec 31, 2016 23:46
[2017-01-01] VITALS: BP 156/98
--- NOTE | 2017-01-01 01:46 | Consultation ---
DATE OF CONSULTATION: 12/31/2016 INFECTIOUS DISEASE CONSULTATION CONSULTING PHYSICIAN: Torres Cobian M.D. covering for Cl Scott M.D. ATTENDING PHYSICIAN: Sebastian Martinez M.D. REASON FOR CONSULTATION: Possible lower extremity cellulitis, chronic obstructive pulmonary disease exacerbation. HISTORY OF PRESENT ILLNESS: This is a 71-year-old unpleasant female with a past medical history notable for COPD, hypertension, reported history of delirium tremens in the past, reportedly to be homeless, and a recent hospitalization apparently at the [facility] for a possible lower extremity cellulitis for which treatment plan is unknown and she was admitted last night for several days of dyspnea at rest, lower extremity pain, and found to be severely hyponatremic with a sodium of 118. The patient denies any fevers or chills. No nausea, vomiting, headache, or abdominal pain. She reports no significant improvement to her lower extremity tense, woody edema during recent hospitalization at [facility] for which she received an unknown duration of antibiotics with an unknown type. She instructed me to "look it up on the computer." At that time, the patient was spitting out tooth paste on the floor. She was upon evaluation in the emergency room, she was found not to have a leukocytosis with a white count of 7.1 and she has an MRSA screening culture for nose pending. Sputum culture was not really obtained. She was not able to produce sputum and she had a VRE screen was obtained. She had a chest x-ray that shows hyperinflated lungs, with the air space and pleural spaces clear without any evidence of effusion or infiltrate. PAST MEDICAL HISTORY: Hypertension, COPD, difficult social status, and reported history of delirium tremens. MEDICATIONS: Current hospital medications Augmentin 875 mg oral every 12 hours day #0, pantoprazole, furosemide 40 mg oral daily, Librium, and amlodipine 5 mg daily. She is on pulse dose steroids 60 mg oral daily. She is also on folic acid. She did receive a dose of vancomycin and a dose of azithromycin yesterday in the emergency room. ALLERGIES: No known drug allergies. FAMILY HISTORY: Noncontributory. PERSONAL AND SOCIAL HISTORY: Denies smoking. Denies illicit drugs. Housing status is uncertain. REVIEW OF SYSTEMS: Eleven-point review of systems otherwise negative beyond what was described in the history of present illness as above. PHYSICAL EXAMINATION: VITAL SIGNS: The patient is afebrile throughout with a current temperature of 97.2 Fahrenheit, blood pressure 125/64. She is tachycardic at 110 and agitated. She has respiratory rate of 22 and saturating 99% on room air. GENERAL APPEARANCE: Ambulatory well-developed and well nourished, slightly obese female. HEENT: Normocephalic and atraumatic. Poor dentition. NECK: No cervical lymphadenopathy. No jugular venous distention. No thyromegaly. CARDIOVASCULAR: Tachycardic. No murmurs. Diminished heart sounds. LUNGS: Diffuse wheezes throughout. No crackles. No rales. No dullness to percussion. ABDOMINAL: Normal bowel sounds. Obese and nontender. No right upper quadrant pain to palpation. No suprapubic pain to palpation. No hepatosplenomegaly. EXTREMITIES: She has no erythema or fluctuance to either thighs despite the report of a possible recent infection of thighs. She has no skin breakdown. She has severe onychomycosis of her toenails bilaterally. Lower extremities, she has tense, woody edema from just below the level of the knee distally consistent with venous stasis changes, not particularly warm, slightly erythematous. Pulses distally are intact. Cap refill is brisk. SKIN: As described above. She has no petechia and no purpura. No cyanosis. No mottling. GENITOURINARY: Deferred. RECTAL: Deferred. LABORATORY DATA: Her white count currently 5.6, hemoglobin 12, platelet count 451,000, and neutrophils 89% without bands. She has an elevated ESR of 61 mm/hour. Chemistry initially on presentation yesterday sodium is 118 is now increased to 131, slowly over the last 18 hours, potassium consistently elevated now at 5.6, chloride 89, bicarb 29, BUN 13, creatinine 0.9, glucose 191, now on steroids. Calcium 10.5. Liver function tests notable for alkaline phosphatase at 123, but a normal bilirubin at 0.4. AST 15, ALT 11. She has an elevated CK mildly at 160 with upper limit of normal as 140. She has an elevated CK-MB fragment at 7.8, but a negative troponin x2. Her proBNP is mildly elevated 147 picograms/milliliter and she has a normal serum albumin at 4.1. She has a hemoglobin A1c of 5.6. She has a profoundly decreased iron saturation at 9% with an elevated LDH of 319 and a carcinoembryonic antigen is within normal limits at 2.8. She had a cholesterol panel sent as well. Urinalysis is negative for any significant white blood cells with 1+ leukocyte esterase, but is not consistent with urinary tract infection. She has no blood cultures or urine cultures pending. IMAGING: We have a chest x-ray already described above in the history of present illness. It shows no evidence of a pneumonia or pleural effusion. ASSESSMENT: 1. Chronic obstructive pulmonary disease exacerbation. 2. No leukocytosis. 3. No fever. 4. No other signs and symptoms of sepsis. 5. Tachycardia in the setting of history of alcohol use. 6. History of delirium tremens, currently on Librium. 7. Severe hyponatremia in the setting of lower extremity edema and possible poor p.o. intake and now seems to be correcting. 8. Anxiety and depression. 9. Hypertension. IMPRESSION: Overall impression, the patient has bilateral lower extremity venous stasis changes without evidence of cellulitis and there is no indication for systemic antibiotic therapy at this time. We should benefit from elevation, potentially compression stockings as an outpatient. She is currently on Augmentin perhaps due to her chronic obstructive pulmonary disease exacerbation. PLAN: 1. Followup MRSA nasal screen. 2. Elevate lower extremities. 3. Consider compression stockings. 4. Azithromycin for five days, orally is an appropriate therapy for her COPD exacerbation, but no antibiotics indicated for lower extremities. We will monitor CBC. We will monitor lower extremity exam, pain control per primary service. Thank you for this consultation. Again covering for Dr. Cl Scott. Torres Cobian MD DR: SRUTHI JOB#: [id number] CC:
[2017-01-01 04:00] VITALS: BP 160/89
[2017-01-01 07:08] LABS: BASOPHILS % (AUTO) 0.2 % (0.0-2.0); LYMPHOCYTES % (AUTO) 10.5 % (20.0-45.0); MEAN CORPUSCULAR HEMOGLOBIN 29.2 PG (27.0-31.0); MEAN CORPUSCULAR HGB CONC 31.2 G/DL (32.0-36.0); MEAN CORPUSCULAR VOLUME 93 FL (80-99); MONOCYTES % (AUTO) 7.8 % (1.0-10.0); NEUTROPHILS % (AUTO) 81.6 % (45.0-75.0); PLATELET COUNT 441 K/UL (150-450); RED CELL DISTRIBUTION WIDTH 13.5 % (11.6-14.8); WHITE BLOOD COUNT 12.2 K/UL (4.8-10.8)
[2017-01-01 07:11] LABS: ALANINE AMINOTRANSFERASE 9 U/L (3-33); ALBUMIN/GLOBULIN RATIO 0.9 (1.0-2.7); ANION GAP 13 (5-15); ASPARTATE AMINO TRANSFERASE 14 U/L (5-40); CALCIUM 10.2 mg/dL (8.6-10.2); CARBON DIOXIDE 30 mEQ/L (20-30); CHLORIDE 89 mEQ/L (98-107); CREATININE 0.7 mg/dL (0.5-0.9); HEMOLYSIS 0; POTASSIUM 4.6 mEQ/L (3.4-4.9); SODIUM 132 mEQ/L (135-145); TOTAL PROTEIN 7.5 g/dL (6.6-8.7)
[2017-01-01 08:38] VITALS: BP 132/76
[2017-01-01] MEDS ORDERED: Azithromycin 250mg tab ORAL SCH (09:00)
[2017-01-01] MEDS: Aspirin EC 81mg tab ORAL SCH (09:23)
[2017-01-01] MEDS: Thiamine 100mg tab ORAL SCH (09:23)
--- NOTE | 2017-01-01 09:23 | General Progress Note ---
Assessment/Plan Status: stable Status Narrative Na 132 Assessment/Plan 1- COPD exacerbation 2- Imbalance 3- DT'S 4. Homeless 5. HypoNatremia, unclear etiology- likely depletional- fairly corrected by saline now- 6. Anxiety//Depression 7. High K likely poor Phlebotomy and related hemolysis 8. HTN 9. Anemia , low Iron Plan: change Norvasc to Cardiazem Breathing Treatment Pulmonary support monitor lytes- taper steroid IV Iron Subjective ROS Limited/Unobtainable: No Constitutional: Reports: malaise Allergies: Coded Allergies: No Known Allergies (Unverified , 12/10/15) Objective Last 24 Hour Vital Signs Date Time Temp Pulse Resp B/P (MAP) Pulse Ox O2 Delivery O2 Flow Rate FiO2 01/01/17 08:38 97.2 112 21 132/76 99 Room Air 01/01/17 06:40 114 22 Room Air 01/01/17 04:00 97.0 100 22 160/89 96 Room Air 01/01/17 04:00 114 01/01/17 00:00 97.2 105 20 156/98 94 Room Air 01/01/17 00:00 117 12/31/16 20:00 95.9 108 20 165/80 99 Room Air 12/31/16 20:00 120 12/31/16 19:30 98 20 Room Air 21 12/31/16 16:00 119 12/31/16 16:00 97.2 110 22 125/64 99 Room Air 12/31/16 12:13 100 154/82 12/31/16 12:00 100 12/31/16 12:00 97.9 93 21 154/80 95 Room Air 12/31/16 11:30 100 20 100 Room Air 21 12/31/16 11:25 101 20 100 Room Air Laboratory Tests 12/31/16 14:29: Urine Osmolality 277L 12/31/16 23:20: Stool Occult Blood Negative 01/01/17 05:40: White Blood Count 12.2#H, Red Blood Count 3.60L, Hemoglobin 10.5L, Hematocrit 33.7L, Mean Corpuscular Volume 93, Mean Corpuscular Hemoglobin 29.2, Mean Corpuscular Hemoglobin Concent 31.2L, Red Cell Distribution Width 13.5, Platelet Count 441, Mean Platelet Volume 5.0L, Neutrophils (%) (Auto) 81.6H, Lymphocytes (%) (Auto) 10.5L, Monocytes (%) (Auto) 7.8, Eosinophils (%) (Auto) 0.0, Basophils (%) (Auto) 0.2, Sodium Level 132L, Potassium Level 4.6, Chloride Level 89L, Carbon Dioxide Level 30, Anion Gap 13, Blood Urea Nitrogen 21, Creatinine 0.7, Estimat Glomerular Filtration Rate , Glucose Level 130H, Calcium Level 10.2, Total Bilirubin 0.3, Aspartate Amino Transf (AST/SGOT) 14, Alanine Aminotransferase (ALT/SGPT) 9, Alkaline Phosphatase 113H, Total Protein 7.5, Albumin 3.7, Globulin 3.8, Albumin/Globulin Ratio 0.9L Height (Feet): 5 Height (Inches): 7.00 Weight (Pounds): 250 General Appearance: no apparent distress Cardiovascular: tachycardia Respiratory/Chest: other - no wheez Abdomen: soft HENRIQUE BENNETT Jan 01, 2017 09:23
[2017-01-01] MEDS: Heparin 5000 units/ml inj SUBQ SCH ×2 (09:28→21:44)
[2017-01-01] MEDS ORDERED: Iron Sucrose 200 MG in NS 110 ML IV ONE (10:30)
--- NOTE | 2017-01-01 11:07 | Pulmonology Progress Note ---
Assessment/Plan Assessment/Plan ASSESSMENT acute COPD exacerbation purulent bronchitis chronic venous stasis BLE HTN hyper K hypo Na ETOH abuse with dependency anemia PLAN OF CARE O2 HHN prn oral steroids and taper daily abx, a/tussive prn sputum cx if able ID follows CXR with COPD changes, no acute cardiopulmonary pathology elevate LE Venous Duplex BLE ECHO BP management with CCB nephro follows monitor renal parameters, lytes, correct lytes as needed Na up to 132 K down to normal DVT GI prophylaxis continue Folate ,Thiamine children counselor on abstinence form ETOH Librium prn monitor HH transfer to [place] floor for placement case discussed and evaluated by supervising physician Subjective Allergies: Coded Allergies: No Known Allergies (Unverified , 12/10/15) Subjective denies cough, congestion afebrile, mild leuk today reluctant to provide answers to questions Objective Last 24 Hour Vital Signs Date Time Temp Pulse Resp B/P (MAP) Pulse Ox O2 Delivery O2 Flow Rate FiO2 01/01/17 08:38 97.2 112 21 132/76 99 Room Air 01/01/17 08:00 112 01/01/17 06:40 114 22 Room Air 01/01/17 04:00 97.0 100 22 160/89 96 Room Air 01/01/17 04:00 114 01/01/17 00:00 97.2 105 20 156/98 94 Room Air 01/01/17 00:00 117 12/31/16 20:00 95.9 108 20 165/80 99 Room Air 12/31/16 20:00 120 12/31/16 19:30 98 20 Room Air 21 12/31/16 16:00 119 12/31/16 16:00 97.2 110 22 125/64 99 Room Air 12/31/16 12:13 100 154/82 12/31/16 12:00 100 12/31/16 12:00 97.9 93 21 154/80 95 Room Air 12/31/16 11:30 100 20 100 Room Air 21 12/31/16 11:25 101 20 100 Room Air General Appearance: no acute distress, other - obese AA female in NAD HEENT: normocephalic, atraumatic, anicteric, mucous membranes moist Respiratory/Chest: chest wall non-tender, no respiratory distress, no accessory muscle use, decreased breath sounds Cardiovascular: normal rate, regular rhythm, no JVD Abdomen: normal bowel sounds, soft, non tender - obese Genitourinary: normal external genitalia Extremities: other - trace edema BLE Skin: other - chronic venous stasis changes BLE Neurologic/Psychiatric: alert, responsive Laboratory Tests 12/31/16 14:29: Urine Osmolality 277L 12/31/16 23:20: Stool Occult Blood Negative 01/01/17 05:40: White Blood Count 12.2#H, Red Blood Count 3.60L, Hemoglobin 10.5L, Hematocrit 33.7L, Mean Corpuscular Volume 93, Mean Corpuscular Hemoglobin 29.2, Mean Corpuscular Hemoglobin Concent 31.2L, Red Cell Distribution Width 13.5, Platelet Count 441, Mean Platelet Volume 5.0L, Neutrophils (%) (Auto) 81.6H, Lymphocytes (%) (Auto) 10.5L, Monocytes (%) (Auto) 7.8, Eosinophils (%) (Auto) 0.0, Basophils (%) (Auto) 0.2, Sodium Level 132L, Potassium Level 4.6, Chloride Level 89L, Carbon Dioxide Level 30, Anion Gap 13, Blood Urea Nitrogen 21, Creatinine 0.7, Estimat Glomerular Filtration Rate , Glucose Level 130H, Calcium Level 10.2, Total Bilirubin 0.3, Aspartate Amino Transf (AST/SGOT) 14, Alanine Aminotransferase (ALT/SGPT) 9, Alkaline Phosphatase 113H, Total Protein 7.5, Albumin 3.7, Globulin 3.8, Albumin/Globulin Ratio 0.9L Current Medications Medications (Trade) Dose Ordered Sig/Isabella Route PRN Reason Start Time Stop Time Status Last Admin Dose Admin Acetaminophen/ Hydrocodone Bitart ([place] 5/325) 1 tab Q4H PRN ORAL PAIN 4-10 12/30/16 20:30 01/06/17 20:29 12/31/16 23:17 Albuterol/ Ipratropium (DuoNeb 0.5-3(2.5)mg/3ml) 3 ml Q4H PRN HHN Shortness of Breath 12/30/16 20:30 01/04/17 20:29 12/31/16 11:32 Aspirin (Ecotrin) 81 mg DAILY ORAL 12/30/16 21:00 01/29/17 20:59 01/01/17 09:23 Azithromycin (Zithromax) 250 mg DAILY ORAL 01/01/17 09:00 01/04/17 08:59 01/01/17 09:23 Chlordiazepoxide (Librium) 25 mg Q8H PRN ORAL alcohol withdrawal 12/31/16 23:45 01/07/17 23:44 Diltiazem HCl (Cardizem) 30 mg EVERY 8 HOURS ORAL 01/01/17 14:00 01/31/17 13:59 Fluoxetine HCl (PROzac) 20 mg DAILY ORAL 01/01/17 09:00 01/31/17 08:59 01/01/17 09:24 Folic Acid (Folate) 1 mg DAILY ORAL 12/31/16 09:00 01/30/17 08:59 01/01/17 09:23 Heparin Sodium (Porcine) (Heparin 5000 units/ml) 5,000 units EVERY 12 HOURS SUBQ 12/30/16 21:00 01/29/17 20:59 01/01/17 09:28 Iron Sucrose 200 mg/Sodium Chloride 120 ml @ 240 mls/hr ONCE ONCE IV 01/01/17 10:30 01/01/17 10:59 Lorazepam (Ativan 2mg/ml 1ml) 1 mg Q4H PRN IV For Anxiety 12/30/16 20:45 01/06/17 20:44 Lorazepam (Ativan) 1 mg Q6H PRN ORAL For Anxiety 12/31/16 09:00 01/07/17 08:59 Pantoprazole (Protonix) 40 mg BID ORAL 12/31/16 18:00 01/29/17 20:59 01/01/17 09:22 Prednisone (predniSONE) 50 mg DAILY ORAL 01/02/17 10:00 02/01/17 09:59 Promethazine HCl/ Codeine (Phenergan with Codeine) 5 ml Q4H PRN ORAL For Cough 12/31/16 08:30 01/30/17 08:29 Thiamine HCl (Vitamin B1) 100 mg DAILY ORAL 12/30/16 20:45 01/29/17 20:44 01/01/17 09:23 Hiren [facility]Cr[facility] HospitalAshley Arriola NP Jan 01, 2017 11:07
[2017-01-01 11:28] VITALS: BP 130/67
[2017-01-01] MEDS ORDERED: chlordiazePOXIDE 25mg Cap ORAL PRN (15:30)
[2017-01-01] MEDS ORDERED: Promethazine/Codeine 5ml UD ORAL PRN (15:30)
[2017-01-01] MEDS ORDERED: LORazepam Inj 2mg/ml 1ml IV PRN (15:30)
[2017-01-01] MEDS: DuoNeb 0.5-3(2.5)mg/3ml neb HHN PRN (16:00)
--- NOTE | 2017-01-01 16:28 | Infectious Diseases Prog Note ---
Assessment/Plan Assessment/Plan ASSESSMENT: 1. Chronic obstructive pulmonary disease exacerbation. 2. No leukocytosis. 3. No fever. 4. No other signs and symptoms of sepsis. 5. Tachycardia in the setting of history of alcohol use. 6. History of delirium tremens, currently on Librium. 7. Severe hyponatremia in the setting of lower extremity edema and possible poor p.o. intake and now seems to be correcting. 8. Anxiety and depression. 9. Hypertension. IMPRESSION: bilateral lower extremity venous stasis changes with mild/ moderate woody/tense lymphedema. there is no record of her recently being admitted to [facility] for infection, and she has no erythema, fluctuance, or warmth on her BLE above the knees. No evidence of cellulitis. 1) BLE venous stasis with mild/moderate lymphedema 2) new leukocytosis today 2ndary to glucocorticoids. 3) afebrile 4) COPD exacerbation pending non infectious w/u with u/s and TTE. PLAN: 1. Followup MRSA nasal screen. 2. Elevate lower extremities. 3. Consider compression stockings as outpatient although given her history i think she would unlikely be compliant. 4. Azithromycin D#2/5 orally for COPD exacerbation 5. no antibiotics indicated for lower extremities. 6. Monitor CBC s/p prednisone 50mg 7. Monitor lower extremity exam 8. pain control per primary service but she appeared comfortable to my exam. covering for Dr. Scott. Please contact me for questions. [phone]. Subjective ROS Limited/Unobtainable: Yes Allergies: Coded Allergies: No Known Allergies (Unverified , 12/10/15) Objective Vital Signs Last 24 Hour Vital Signs Date Time Temp Pulse Resp B/P (MAP) Pulse Ox O2 Delivery O2 Flow Rate FiO2 01/01/17 16:00 107 18 100 Room Air 01/01/17 14:26 107 130/67 01/01/17 12:00 107 01/01/17 11:28 97.7 116 19 130/67 96 Room Air 01/01/17 08:38 97.2 112 21 132/76 99 Room Air 01/01/17 08:00 112 01/01/17 06:40 114 22 Room Air 01/01/17 04:00 97.0 100 22 160/89 96 Room Air 01/01/17 04:00 114 01/01/17 00:00 97.2 105 20 156/98 94 Room Air 01/01/17 00:00 117 12/31/16 20:00 95.9 108 20 165/80 99 Room Air 12/31/16 20:00 120 12/31/16 19:30 98 20 Room Air 21 Height (Feet): 5 Height (Inches): 7.00 Weight (Pounds): 250 Objective GENERAL APPEARANCE: Ambulatory well-developed and well nourished, slightly obese female. HEENT: Normocephalic and atraumatic. Poor dentition. NECK: No cervical lymphadenopathy. No jugular venous distention. No thyromegaly. CARDIOVASCULAR: Tachycardic. No murmurs. Diminished heart sounds. LUNGS: Diffuse wheezes throughout. No crackles. No rales. No dullness to percussion. ABDOMINAL: Normal bowel sounds. Obese and nontender. No right upper quadrant pain to palpation. No suprapubic pain to palpation. No hepatosplenomegaly. EXTREMITIES: She has no erythema or fluctuance to either thighs despite the report of a possible recent infection of thighs. She has no skin breakdown. She has severe onychomycosis of her toenails bilaterally. Lower extremities, she has tense, woody edema from just below the level of the knee distally consistent with venous stasis changes, not particularly warm, slightly erythematous. Pulses distally are intact. Cap refill is brisk. SKIN: As described above. She has no petechia and no purpura. No cyanosis. No mottling. GENITOURINARY: Deferred. RECTAL: Deferred. Laboratory Tests Test 12/31/16 23:20 01/01/17 05:40 Stool Occult Blood Negative (NEGATIVE) White Blood Count 12.2 K/UL (4.8-10.8) #H Red Blood Count 3.60 M/UL (4.20-5.40) L Hemoglobin 10.5 G/DL (12.0-16.0) L Hematocrit 33.7 % (37.0-47.0) L Mean Corpuscular Volume 93 FL (80-99) Mean Corpuscular Hemoglobin 29.2 PG (27.0-31.0) Mean Corpuscular Hemoglobin Concent 31.2 G/DL (32.0-36.0) L Red Cell Distribution Width 13.5 % (11.6-14.8) Platelet Count 441 K/UL (150-450) Mean Platelet Volume 5.0 FL (6.5-10.1) L Neutrophils (%) (Auto) 81.6 % (45.0-75.0) H Lymphocytes (%) (Auto) 10.5 % (20.0-45.0) L Monocytes (%) (Auto) 7.8 % (1.0-10.0) Eosinophils (%) (Auto) 0.0 % (0.0-3.0) Basophils (%) (Auto) 0.2 % (0.0-2.0) Sodium Level 132 mEQ/L (135-145) L Potassium Level 4.6 mEQ/L (3.4-4.9) Chloride Level 89 mEQ/L (98-107) L Carbon Dioxide Level 30 mEQ/L (20-30) Anion Gap 13 (5-15) Blood Urea Nitrogen 21 mg/dL (7-23) Creatinine 0.7 mg/dL (0.5-0.9) Estimat Glomerular Filtration Rate mL/min (>60) Glucose Level 130 mg/dL (74-106) H Calcium Level 10.2 mg/dL (8.6-10.2) Total Bilirubin 0.3 mg/dL (0.0-1.2) Aspartate Amino Transf (AST/SGOT) 14 U/L (5-40) Alanine Aminotransferase (ALT/SGPT) 9 U/L (3-33) Alkaline Phosphatase 113 U/L (35-104) H Total Protein 7.5 g/dL (6.6-8.7) Albumin 3.7 g/dL (3.5-5.2) Globulin 3.8 g/dL Albumin/Globulin Ratio 0.9 (1.0-2.7) L Current Medications Medications (Trade) Dose Ordered Sig/Isabella Route PRN Reason Start Time Stop Time Status Last Admin Dose Admin Acetaminophen/ Hydrocodone Bitart ([place] 5/325) 1 tab Q4H PRN ORAL PAIN 4-10 01/01/17 15:30 01/06/17 15:29 Albuterol/ Ipratropium (DuoNeb 0.5-3(2.5)mg/3ml) 3 ml Q4H PRN HHN Shortness of Breath 01/01/17 15:30 01/04/17 15:29 01/01/17 16:00 Aspirin (Ecotrin) 81 mg DAILY ORAL 01/02/17 09:00 01/29/17 20:59 Azithromycin (Zithromax) 250 mg DAILY ORAL 01/02/17 09:00 01/04/17 08:59 Chlordiazepoxide (Librium) 25 mg Q8H PRN ORAL alcohol withdrawal 01/01/17 15:30 01/07/17 15:29 Diltiazem HCl (Cardizem) 30 mg EVERY 8 HOURS ORAL 01/01/17 22:00 01/31/17 13:59 Fluoxetine HCl (PROzac) 20 mg DAILY ORAL 01/02/17 09:00 01/31/17 08:59 Folic Acid (Folate) 1 mg DAILY ORAL 01/02/17 09:00 01/30/17 08:59 Heparin Sodium (Porcine) (Heparin 5000 units/ml) 5,000 units EVERY 12 HOURS SUBQ 01/01/17 21:00 01/29/17 20:59 Lorazepam (Ativan 2mg/ml 1ml) 1 mg Q4H PRN IV For Anxiety 01/01/17 15:30 01/06/17 15:29 Lorazepam (Ativan) 1 mg Q6H PRN ORAL For Anxiety 01/01/17 15:30 01/07/17 15:29 Pantoprazole (Protonix) 40 mg BID ORAL 01/01/17 18:00 01/29/17 20:59 Prednisone (predniSONE) 50 mg DAILY ORAL 01/02/17 09:00 02/01/17 08:59 Promethazine HCl/ Codeine (Phenergan with Codeine) 5 ml Q4H PRN ORAL For Cough 01/01/17 15:30 01/30/17 15:29 Thiamine HCl (Vitamin B1) 100 mg DAILY ORAL 01/02/17 09:00 02/01/17 08:59 Torres Cobian M.D. Jan 01, 2017 16:28
[2017-01-01 16:30] VITALS: BP 131/61
--- NOTE | 2017-01-01 18:34 | General Progress Note ---
Assessment/Plan Status: stable Assessment/Plan 1. Alcoholic encephalopathy. 2. Alcoholic withdrawal. 3. Chronic obstructive pulmonary disease exacerbation. 4. Hyponatremia. 5. Hyperkalemia. 6. Anxiety/depression. 7. Homelesslessness 8. Gastrointestinal and deep vein thrombosis prophylaxis. Plan: Psych ID nephro Notes are reviewed. Current managment. Discharge planning,regarding placement Subjective ROS Limited/Unobtainable: No Constitutional: Reports: malaise HEENT: Reports: no symptoms Cardiovascular: Reports: no symptoms Allergies: Coded Allergies: No Known Allergies (Unverified , 12/10/15) Objective Last 24 Hour Vital Signs Date Time Temp Pulse Resp B/P (MAP) Pulse Ox O2 Delivery O2 Flow Rate FiO2 01/01/17 16:00 107 18 100 Room Air 01/01/17 14:26 107 130/67 01/01/17 12:00 107 01/01/17 11:28 97.7 116 19 130/67 96 Room Air 01/01/17 08:38 97.2 112 21 132/76 99 Room Air 01/01/17 08:00 112 01/01/17 06:40 114 22 Room Air 01/01/17 04:00 97.0 100 22 160/89 96 Room Air 01/01/17 04:00 114 01/01/17 00:00 97.2 105 20 156/98 94 Room Air 01/01/17 00:00 117 12/31/16 20:00 95.9 108 20 165/80 99 Room Air 12/31/16 20:00 120 12/31/16 19:30 98 20 Room Air 21 Intake and Output 01/01/17 01/02/17 19:00 07:00 Intake Total 60 ml Balance 60 ml IV Total 60 ml Laboratory Tests 12/31/16 23:20: Stool Occult Blood Negative 01/01/17 05:40: White Blood Count 12.2#H, Red Blood Count 3.60L, Hemoglobin 10.5L, Hematocrit 33.7L, Mean Corpuscular Volume 93, Mean Corpuscular Hemoglobin 29.2, Mean Corpuscular Hemoglobin Concent 31.2L, Red Cell Distribution Width 13.5, Platelet Count 441, Mean Platelet Volume 5.0L, Neutrophils (%) (Auto) 81.6H, Lymphocytes (%) (Auto) 10.5L, Monocytes (%) (Auto) 7.8, Eosinophils (%) (Auto) 0.0, Basophils (%) (Auto) 0.2, Sodium Level 132L, Potassium Level 4.6, Chloride Level 89L, Carbon Dioxide Level 30, Anion Gap 13, Blood Urea Nitrogen 21, Creatinine 0.7, Estimat Glomerular Filtration Rate , Glucose Level 130H, Calcium Level 10.2, Total Bilirubin 0.3, Aspartate Amino Transf (AST/SGOT) 14, Alanine Aminotransferase (ALT/SGPT) 9, Alkaline Phosphatase 113H, Total Protein 7.5, Albumin 3.7, Globulin 3.8, Albumin/Globulin Ratio 0.9L Height (Feet): 5 Height (Inches): 7.00 Weight (Pounds): 250 General Appearance: no apparent distress EENT: PERRL/EOMI Neck: supple Cardiovascular: normal rate Respiratory/Chest: lungs clear Abdomen: soft Extremities: non-tender 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
[2017-01-01] MEDS ORDERED: Tubing IV Secondary IV ONE (19:53)
[2017-01-01 20:00] VITALS: BP 127/61
[2017-01-02] VITALS: BP 106/59
[2017-01-02 04:00] VITALS: BP 142/67
--- NOTE | 2017-01-02 07:52 | General Progress Note ---
Assessment/Plan Status: stable Assessment/Plan 1. Alcoholic encephalopathy. 2. Alcoholic withdrawal. 3. Chronic obstructive pulmonary disease exacerbation. 4. Hyponatremia. 5. Hyperkalemia. 6. Anxiety/depression. 7. Homelesslessness 8. Anemia-Iron Deficiency 8. Gastrointestinal and deep vein thrombosis prophylaxis. Plan: Psych ID nephro Notes are reviewed. iron supplment stool test Current managment. Discharge planning,regarding placement Subjective ROS Limited/Unobtainable: No Constitutional: Reports: no symptoms HEENT: Reports: no symptoms Cardiovascular: Reports: no symptoms Respiratory: Reports: no symptoms Allergies: Coded Allergies: No Known Allergies (Unverified , 12/10/15) Objective Last 24 Hour Vital Signs Date Time Temp Pulse Resp B/P (MAP) Pulse Ox O2 Delivery O2 Flow Rate FiO2 01/02/17 05:35 99 142/67 01/02/17 04:00 97.5 99 20 142/67 98 Room Air 01/02/17 00:00 97.2 91 20 106/59 Room Air 01/01/17 22:16 98 16 98 Room Air 21 01/01/17 21:46 95 126/70 01/01/17 20:00 97.9 104 20 127/61 98 Room Air 01/01/17 19:37 98 18 Room Air 21 01/01/17 16:30 97.9 96 20 131/61 95 01/01/17 16:00 107 18 100 Room Air 01/01/17 14:26 107 130/67 01/01/17 12:00 107 01/01/17 11:28 97.7 116 19 130/67 96 Room Air 01/01/17 08:38 97.2 112 21 132/76 99 Room Air 01/01/17 08:00 112 Height (Feet): 5 Height (Inches): 7.00 Weight (Pounds): 250 General Appearance: WD/WN EENT: PERRL/EOMI Neck: supple Cardiovascular: normal rate Respiratory/Chest: lungs clear Abdomen: soft Extremities: non-tender 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
[2017-01-02 08:00] VITALS: BP 125/63
[2017-01-02] MEDS: Azithromycin 250mg tab ORAL SCH (08:58)
[2017-01-02] MEDS: Aspirin EC 81mg tab ORAL SCH (08:58)
[2017-01-02] MEDS: Thiamine 100mg tab ORAL SCH (08:58)
[2017-01-02 08:59] LABS: BASOPHILS % (AUTO) 0.9 % (0.0-2.0); EOSINOPHILS % (AUTO) 5.1 % (0.0-3.0); MEAN CORPUSCULAR HEMOGLOBIN 29.4 PG (27.0-31.0); MEAN CORPUSCULAR HGB CONC 30.9 G/DL (32.0-36.0); MEAN CORPUSCULAR VOLUME 95 FL (80-99); MEAN PLATELET VOLUME 4.7 FL (6.5-10.1); MONOCYTES % (AUTO) 13.4 % (1.0-10.0); NEUTROPHILS % (AUTO) 53.5 % (45.0-75.0); PLATELET COUNT 426 K/UL (150-450); RED CELL DISTRIBUTION WIDTH 13.5 % (11.6-14.8); WHITE BLOOD COUNT 8.8 K/UL (4.8-10.8)
[2017-01-02] MEDS ORDERED: PREDNISONE 50 MG ORAL SCH (09:00)
[2017-01-02] MEDS: Heparin 5000 units/ml inj SUBQ SCH ×2 (09:03→21:39)
[2017-01-02 09:14] LABS: ALANINE AMINOTRANSFERASE 10 U/L (3-33); ALBUMIN/GLOBULIN RATIO 1.1 (1.0-2.7); ANION GAP 9 (5-15); ASPARTATE AMINO TRANSFERASE 13 U/L (5-40); CALCIUM 9.1 mg/dL (8.6-10.2); CARBON DIOXIDE 29 mEQ/L (20-30); CHLORIDE 95 mEQ/L (98-107); CREATININE 0.6 mg/dL (0.5-0.9); HEMOLYSIS 2; POTASSIUM 4.4 mEQ/L (3.4-4.9); SODIUM 133 mEQ/L (135-145); TOTAL PROTEIN 6.6 g/dL (6.6-8.7)
[2017-01-02] MEDS ORDERED: PredniSONE 20mg tab ORAL SCH (10:00)
[2017-01-02] MEDS: DuoNeb 0.5-3(2.5)mg/3ml neb HHN PRN (10:58)
[2017-01-02 12:00] VITALS: BP 132/81
--- NOTE | 2017-01-02 12:57 | Wound Care Consultation ---
Wound Assessment Wound Assessment #1: Wound Number: 1 Wound Present on Admission: Yes New Wound: No Status Change of Wound: No Wound Location Body Site Modif: left Wound Location Body Site: buttocks - extending to posterior thigh Wound Type: scab - scattered scabs and chemical burn with erosions Darnell Test: Does not Darnell Wound Thickness: Partial Thickness Percent of Wound [place]/Red: 50 - scattered erosions. Percent of Wound Black/Brown: 50 - scattered scabs Wound Drainage Amount: None Wound Drainage Odor: None/Absent Tissue Surrounding Wound: Erythemic Wound General Appearance: Reddened, Open to air Wound Assessment #2: Wound Number: 2 Wound Present on Admission: Yes New Wound: No Status Change of Wound: No Wound Location Body Site Modif: left Wound Location Body Site: buttocks Wound Type: scab Darnell Test: Does not Darnell Wound Thickness: Full Thickness Wound Length: 2.0 Wound Width: 2.0 Wound Depth: utd Percent of Wound Bed Yellow/Wh: 50 - thick yellow scab Percent of Wound Black/Brown: 50 - thick brown scab, Wound Drainage Amount: Scant Wound Drainage Odor: None/Absent Tissue Surrounding Wound: Erythemic Wound General Appearance: Reddened, Blackened - yellow and black scab. Wound Assessment #3: Wound Number: 3 Wound Present on Admission: Yes New Wound: No Status Change of Wound: No Wound Location Body Site Modif: left, mid Wound Location Body Site: buttocks Wound Type: scar Darnell Test: Does not Darnell Wound Thickness: Full Thickness Wound Length: 3.0 Wound Width: 3.0 Wound Depth: utd Percent of Wound [place]/Red: 100 Wound Drainage Amount: None Wound Drainage Odor: None/Absent Tissue Surrounding Wound: Erythemic Wound General Appearance: Reddened - full thickness scar tissue. Wound Assessment #4: Wound Number: 4 Wound Present on Admission: Yes New Wound: No Status Change of Wound: No Wound Location Body Site Modif: right Wound Location Body Site: buttocks Wound Type: scab - scattered scabs with chemical burn with erosions Darnell Test: Does not Darnell Wound Thickness: Partial Thickness Percent of Wound [place]/Red: 50 - chemical burn with erosions scattered Percent of Wound Black/Brown: 50 - scattered scabs . Other Colors Identified: noted maroon discoloration. Wound Drainage Amount: None Wound Drainage Odor: None/Absent Tissue Surrounding Wound: Erythemic Wound General Appearance: Reddened, Blackened - scattered scabs Wound Comment #1 left buttocks extending to posterior thigh scattered scabs with chemical burn with scattered erosions. #2 left buttock full thickness scab. #3 left mid buttock full thickness scar tissue. #4 right buttocks scattered scabs with chemical burn and scattered erosions. #5 left and right foot itchiness. skin is intact. Recommendation. -follow up with MD regarding left and right foot c/o itchiness. -keep lower extremities moisturized. and clean. -Local wound care as ordered. -Turn and reposition. -Optimize nutrition. -Keep clean and dry. -Assess and notify MD for any changes of condition to skin. LEDY ROJAS Jan 02, 2017 12:57
--- NOTE | 2017-01-02 13:04 | General Progress Note ---
Assessment/Plan Status: stable Status Narrative Na 133 Assessment/Plan 1- COPD exacerbation 2- Imbalance 3- DT'S 4. Homeless 5. HypoNatremia, unclear etiology- likely depletional- fairly corrected by saline now- 6. Anxiety//Depression 7. High K likely poor Phlebotomy and related hemolysis 8. HTN 9. Anemia , low Iron Plan: change Norvasc to Cardiazem and change to CD Breathing Treatment Pulmonary support monitor lytes- taper steroid IV Iron one dose given Subjective ROS Limited/Unobtainable: No Constitutional: Reports: malaise Allergies: Coded Allergies: No Known Allergies (Unverified , 12/10/15) Objective Last 24 Hour Vital Signs Date Time Temp Pulse Resp B/P (MAP) Pulse Ox O2 Delivery O2 Flow Rate FiO2 01/02/17 12:00 97.3 20 132/81 95 Room Air 01/02/17 10:59 102 20 100 Room Air 01/02/17 10:53 100 20 100 Room Air 01/02/17 08:00 97.3 100 20 125/63 99 Room Air 01/02/17 07:58 95 18 Room Air 01/02/17 05:35 99 142/67 01/02/17 04:00 97.5 99 20 142/67 98 Room Air 01/02/17 00:00 97.2 91 20 106/59 Room Air 01/01/17 22:16 98 16 98 Room Air 01/01/17 21:46 95 126/70 01/01/17 20:00 97.9 104 20 127/61 98 Room Air 01/01/17 19:37 98 18 Room Air 01/01/17 16:30 97.9 96 20 131/61 95 01/01/17 16:00 107 18 100 Room Air 01/01/17 14:26 107 130/67 Laboratory Tests 01/02/17 08:25: White Blood Count 8.8, Red Blood Count 3.40L, Hemoglobin 10.0L, Hematocrit 32.3L , Mean Corpuscular Volume 95, Mean Corpuscular Hemoglobin 29.4, Mean Corpuscular Hemoglobin Concent 30.9L, Red Cell Distribution Width 13.5, Platelet Count 426, Mean Platelet Volume 4.7L, Neutrophils (%) (Auto) 53.5, Lymphocytes (%) (Auto) 27.0, Monocytes (%) (Auto) 13.4H, Eosinophils (%) (Auto) 5.1H, Basophils (%) (Auto) 0.9, Sodium Level 133L, Potassium Level 4.4, Chloride Level 95L, Carbon Dioxide Level 29, Anion Gap 9, Blood Urea Nitrogen 19 , Creatinine 0.6, Estimat Glomerular Filtration Rate , Glucose Level 101, Calcium Level 9.1, Total Bilirubin < 0.2, Aspartate Amino Transf (AST/SGOT) 13, Alanine Aminotransferase (ALT/SGPT) 10, Alkaline Phosphatase 93, Total Protein 6.6, Albumin 3.5, Globulin 3.1, Albumin/Globulin Ratio 1.1 Height (Feet): 5 Height (Inches): 7.00 Weight (Pounds): 250 General Appearance: no apparent distress Cardiovascular: tachycardia Respiratory/Chest: decreased breath sounds Abdomen: soft Objective PE not changed HENRIQUE BENNETT Jan 02, 2017 13:03
[2017-01-02] MEDS: Docusate 100mg cap ORAL SCH ×2 (13:20→17:33)
--- NOTE | 2017-01-02 15:54 | Pulmonology Progress Note ---
Assessment/Plan Problems: (1) COPD exacerbation (2) Purulent bronchitis (3) Cellulitis of right leg (4) Alcohol dependence (5) HTN (hypertension) Assessment/Plan on prednisone 40 mg improving social service consult Subjective ROS Limited/Unobtainable: No Constitutional: Reports: no symptoms HEENT: Repors: no symptoms Respiratory: Reports: no symptoms Allergies: Coded Allergies: No Known Allergies (Unverified , 12/10/15) Objective Last 24 Hour Vital Signs Date Time Temp Pulse Resp B/P (MAP) Pulse Ox O2 Delivery O2 Flow Rate FiO2 01/02/17 14:08 95 01/02/17 13:20 102 132/81 01/02/17 12:00 97.3 20 132/81 95 Room Air 01/02/17 10:59 102 20 100 Room Air 21 01/02/17 10:53 100 20 100 Room Air 01/02/17 08:00 97.3 100 20 125/63 99 Room Air 01/02/17 07:58 95 18 Room Air 21 01/02/17 05:35 99 142/67 01/02/17 04:00 97.5 99 20 142/67 98 Room Air 01/02/17 00:00 97.2 91 20 106/59 Room Air 01/01/17 22:16 98 16 98 Room Air 21 01/01/17 21:46 95 126/70 01/01/17 20:00 97.9 104 20 127/61 98 Room Air 01/01/17 19:37 98 18 Room Air 21 01/01/17 16:30 97.9 96 20 131/61 95 01/01/17 16:00 107 18 100 Room Air General Appearance: WD/WN HEENT: normocephalic, atraumatic Respiratory/Chest: chest wall non-tender, lungs clear Cardiovascular: normal peripheral pulses, normal rate Abdomen: normal bowel sounds, soft, non tender Genitourinary: normal external genitalia Extremities: no clubbing 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, no motor/sensory deficits Lymphatic: no neck adenopathy Musculoskeletal: no effusion Microbiology Date/Time Source Procedure Growth Status 12/31/16 00:00 Nasal Nares MRSA Culture - Final Staphylococcus Aureus - Mrsa Complete 12/31/16 00:00 Rectum VRE Culture - Final Enterococcus Faecium - Vre Complete Laboratory Tests 01/02/17 08:25: White Blood Count 8.8, Red Blood Count 3.40L, Hemoglobin 10.0L, Hematocrit 32.3L , Mean Corpuscular Volume 95, Mean Corpuscular Hemoglobin 29.4, Mean Corpuscular Hemoglobin Concent 30.9L, Red Cell Distribution Width 13.5, Platelet Count 426, Mean Platelet Volume 4.7L, Neutrophils (%) (Auto) 53.5, Lymphocytes (%) (Auto) 27.0, Monocytes (%) (Auto) 13.4H, Eosinophils (%) (Auto) 5.1H, Basophils (%) (Auto) 0.9, Sodium Level 133L, Potassium Level 4.4, Chloride Level 95L, Carbon Dioxide Level 29, Anion Gap 9, Blood Urea Nitrogen 19 , Creatinine 0.6, Estimat Glomerular Filtration Rate , Glucose Level 101, Calcium Level 9.1, Total Bilirubin < 0.2, Aspartate Amino Transf (AST/SGOT) 13, Alanine Aminotransferase (ALT/SGPT) 10, Alkaline Phosphatase 93, Total Protein 6.6, Albumin 3.5, Globulin 3.1, Albumin/Globulin Ratio 1.1 Current Medications Medications (Trade) Dose Ordered Sig/Isabella Route PRN Reason Start Time Stop Time Status Last Admin Dose Admin Acetaminophen/ Hydrocodone Bitart ([place] 5/325) 1 tab Q4H PRN ORAL PAIN 4-10 01/01/17 15:30 01/06/17 15:29 Albuterol/ Ipratropium (DuoNeb 0.5-3(2.5)mg/3ml) 3 ml Q4H PRN HHN Shortness of Breath 01/01/17 15:30 01/04/17 15:29 01/02/17 10:58 Aspirin (Ecotrin) 81 mg DAILY ORAL 01/02/17 09:00 01/29/17 20:59 01/02/17 08:58 Azithromycin (Zithromax) 250 mg DAILY ORAL 01/02/17 09:00 01/04/17 08:59 01/02/17 08:58 Chlordiazepoxide (Librium) 25 mg Q8H PRN ORAL alcohol withdrawal 01/01/17 15:30 01/07/17 15:29 Diltiazem HCl (Cardizem CD) 180 mg DAILY ORAL 01/03/17 09:00 02/02/17 08:59 Diltiazem HCl (Cardizem) 60 mg EVERY 8 HOURS ORAL 01/02/17 14:00 01/02/17 22:01 01/02/17 13:20 Docusate Sodium (Colace) 100 mg THREE TIMES A DAY ORAL 01/02/17 14:00 02/01/17 13:59 01/02/17 13:20 Ferrous Sulfate (Feosol) 325 mg THREE TIMES A DAY ORAL 01/02/17 09:30 02/01/17 09:29 01/02/17 13:20 Fluoxetine HCl (PROzac) 20 mg DAILY ORAL 01/02/17 09:00 01/31/17 08:59 01/02/17 08:58 Folic Acid (Folate) 1 mg DAILY ORAL 01/02/17 09:00 01/30/17 08:59 01/02/17 08:58 Heparin Sodium (Porcine) (Heparin 5000 units/ml) 5,000 units EVERY 12 HOURS SUBQ 01/01/17 21:00 01/29/17 20:59 01/02/17 09:03 Lorazepam (Ativan 2mg/ml 1ml) 1 mg Q4H PRN IV For Anxiety 01/01/17 15:30 01/06/17 15:29 Lorazepam (Ativan) 1 mg Q6H PRN ORAL For Anxiety 01/01/17 15:30 01/07/17 15:29 Pantoprazole (Protonix) 40 mg BID ORAL 01/01/17 18:00 01/29/17 20:59 01/02/17 08:58 Prednisone (predniSONE) 40 mg DAILY ORAL 01/03/17 09:00 02/02/17 08:59 Promethazine HCl/ Codeine (Phenergan with Codeine) 5 ml Q4H PRN ORAL For Cough 01/01/17 15:30 01/30/17 15:29 Thiamine HCl (Vitamin B1) 100 mg DAILY ORAL 01/02/17 09:00 02/01/17 08:59 01/02/17 08:58 NOREEN COLON Jan 02, 2017 15:54
[2017-01-02 16:00] VITALS: BP 155/77
--- NOTE | 2017-01-02 16:52 | Infectious Diseases Prog Note ---
Assessment/Plan Assessment/Plan ASSESSMENT: 1. Chronic obstructive pulmonary disease exacerbation. 2. transient leukocytosis on steroids yesterday resolved 3. No fever. 4. No other signs and symptoms of sepsis. 5. Tachycardia in the setting of history of alcohol use. 6. History of delirium tremens, currently on Librium. 7. Severe hyponatremia in the setting of lower extremity edema and possible poor p.o. intake and now seems to be correcting. 8. Anxiety and depression. 9. Hypertension. 10. 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 contact isolation per hospital protocol 2. Elevate lower extremities. 3. Consider compression stockings as outpatient although given her history i think she would unlikely be compliant. 4. Azithromycin D#3/5 orally for COPD exacerbation 5. no antibiotics indicated for lower extremities. 6. Monitor CBC s/p prednisone 50mg 7. Monitor lower extremity exam 8. pain control per primary service but she appeared comfortable to my exam. covering for Dr. Scott. Please contact me for questions. . Subjective ROS Limited/Unobtainable: Yes Allergies: Coded Allergies: No Known Allergies (Unverified , 12/10/15) Objective Vital Signs Last 24 Hour Vital Signs Date Time Temp Pulse Resp B/P (MAP) Pulse Ox O2 Delivery O2 Flow Rate FiO2 01/02/17 16:00 98.1 91 20 155/77 97 Room Air 01/02/17 14:08 95 01/02/17 13:20 102 132/81 01/02/17 12:00 97.3 20 132/81 95 Room Air 01/02/17 10:59 102 20 100 Room Air 01/02/17 10:53 100 20 100 Room Air 01/02/17 08:00 97.3 100 20 125/63 99 Room Air 01/02/17 07:58 95 18 Room Air 01/02/17 05:35 99 142/67 01/02/17 04:00 97.5 99 20 142/67 98 Room Air 01/02/17 00:00 97.2 91 20 106/59 Room Air 01/01/17 22:16 98 16 98 Room Air 01/01/17 21:46 95 126/70 01/01/17 20:00 97.9 104 20 127/61 98 Room Air 01/01/17 19:37 98 18 Room Air 21 Height (Feet): 5 Height (Inches): 7.00 Weight (Pounds): 250 Objective GENERAL APPEARANCE: Ambulatory well-developed and well nourished, slightly obese female. HEENT: Normocephalic and atraumatic. Poor dentition. NECK: No cervical lymphadenopathy. No jugular venous distention. No thyromegaly. CARDIOVASCULAR: Tachycardic. No murmurs. Diminished heart sounds. LUNGS: Diffuse wheezes throughout. No crackles. No rales. No dullness to percussion. ABDOMINAL: Normal bowel sounds. Obese and nontender. No right upper quadrant pain to palpation. No suprapubic pain to palpation. No hepatosplenomegaly. EXTREMITIES: She has no erythema or fluctuance to either thighs despite the report of a possible recent infection of thighs. She has no skin breakdown. She has severe onychomycosis of her toenails bilaterally. Lower extremities, she has tense, woody edema from just below the level of the knee distally consistent with venous stasis changes, not particularly warm, slightly erythematous. Pulses distally are intact. Cap refill is brisk. SKIN: As described above. She has no petechia and no purpura. No cyanosis. No mottling. GENITOURINARY: Deferred. RECTAL: Deferred. Microbiology Date/Time Source Procedure Growth Status 12/31/16 00:00 Nasal Nares MRSA Culture - Final Staphylococcus Aureus - Mrsa Complete 12/31/16 00:00 Rectum VRE Culture - Final Enterococcus Faecium - Vre Complete Laboratory Tests Test 01/02/17 08:25 White Blood Count 8.8 K/UL (4.8-10.8) Red Blood Count 3.40 M/UL (4.20-5.40) L Hemoglobin 10.0 G/DL (12.0-16.0) L Hematocrit 32.3 % (37.0-47.0) L Mean Corpuscular Volume 95 FL (80-99) Mean Corpuscular Hemoglobin 29.4 PG (27.0-31.0) Mean Corpuscular Hemoglobin Concent 30.9 G/DL (32.0-36.0) L Red Cell Distribution Width 13.5 % (11.6-14.8) Platelet Count 426 K/UL (150-450) Mean Platelet Volume 4.7 FL (6.5-10.1) L Neutrophils (%) (Auto) 53.5 % (45.0-75.0) Lymphocytes (%) (Auto) 27.0 % (20.0-45.0) Monocytes (%) (Auto) 13.4 % (1.0-10.0) H Eosinophils (%) (Auto) 5.1 % (0.0-3.0) H Basophils (%) (Auto) 0.9 % (0.0-2.0) Sodium Level 133 mEQ/L (135-145) L Potassium Level 4.4 mEQ/L (3.4-4.9) Chloride Level 95 mEQ/L (98-107) L Carbon Dioxide Level 29 mEQ/L (20-30) Anion Gap 9 (5-15) Blood Urea Nitrogen 19 mg/dL (7-23) Creatinine 0.6 mg/dL (0.5-0.9) Estimat Glomerular Filtration Rate mL/min (>60) Glucose Level 101 mg/dL (74-106) Calcium Level 9.1 mg/dL (8.6-10.2) Total Bilirubin < 0.2 mg/dL (0.0-1.2) Aspartate Amino Transf (AST/SGOT) 13 U/L (5-40) Alanine Aminotransferase (ALT/SGPT) 10 U/L (3-33) Alkaline Phosphatase 93 U/L (35-104) Total Protein 6.6 g/dL (6.6-8.7) Albumin 3.5 g/dL (3.5-5.2) Globulin 3.1 g/dL Albumin/Globulin Ratio 1.1 (1.0-2.7) Current Medications Medications (Trade) Dose Ordered Sig/Isabella Route PRN Reason Start Time Stop Time Status Last Admin Dose Admin Acetaminophen/ Hydrocodone Bitart ([place] 5/325) 1 tab Q4H PRN ORAL PAIN 4-10 01/01/17 15:30 01/06/17 15:29 Albuterol/ Ipratropium (DuoNeb 0.5-3(2.5)mg/3ml) 3 ml Q4H PRN HHN Shortness of Breath 01/01/17 15:30 01/04/17 15:29 01/02/17 10:58 Aspirin (Ecotrin) 81 mg DAILY ORAL 01/02/17 09:00 01/29/17 20:59 01/02/17 08:58 Azithromycin (Zithromax) 250 mg DAILY ORAL 01/02/17 09:00 01/04/17 08:59 01/02/17 08:58 Chlordiazepoxide (Librium) 25 mg Q8H PRN ORAL alcohol withdrawal 01/01/17 15:30 01/07/17 15:29 Diltiazem HCl (Cardizem CD) 180 mg DAILY ORAL 01/03/17 09:00 02/02/17 08:59 Diltiazem HCl (Cardizem) 60 mg EVERY 8 HOURS ORAL 01/02/17 14:00 01/02/17 22:01 01/02/17 13:20 Docusate Sodium (Colace) 100 mg THREE TIMES A DAY ORAL 01/02/17 14:00 02/01/17 13:59 01/02/17 13:20 Ferrous Sulfate (Feosol) 325 mg THREE TIMES A DAY ORAL 01/02/17 09:30 02/01/17 09:29 01/02/17 13:20 Fluoxetine HCl (PROzac) 20 mg DAILY ORAL 01/02/17 09:00 01/31/17 08:59 01/02/17 08:58 Folic Acid (Folate) 1 mg DAILY ORAL 01/02/17 09:00 01/30/17 08:59 01/02/17 08:58 Heparin Sodium (Porcine) (Heparin 5000 units/ml) 5,000 units EVERY 12 HOURS SUBQ 01/01/17 21:00 01/29/17 20:59 01/02/17 09:03 Lorazepam (Ativan 2mg/ml 1ml) 1 mg Q4H PRN IV For Anxiety 01/01/17 15:30 01/06/17 15:29 Lorazepam (Ativan) 1 mg Q6H PRN ORAL For Anxiety 01/01/17 15:30 01/07/17 15:29 Pantoprazole (Protonix) 40 mg BID ORAL 01/01/17 18:00 01/29/17 20:59 01/02/17 08:58 Prednisone (predniSONE) 40 mg DAILY ORAL 01/03/17 09:00 02/02/17 08:59 Promethazine HCl/ Codeine (Phenergan with Codeine) 5 ml Q4H PRN ORAL For Cough 01/01/17 15:30 01/30/17 15:29 Thiamine HCl (Vitamin B1) 100 mg DAILY ORAL 01/02/17 09:00 02/01/17 08:59 01/02/17 08:58 Torres Cobian M.D. Jan 02, 2017 16:52
--- NOTE | 2017-01-02 17:05 | General Progress Note ---
Assessment/Plan Status: stable Assessment/Plan cont current meds Subjective Neurologic/Psychiatric: Reports: anxiety, depressed, emotional problems Allergies: Coded Allergies: No Known Allergies (Unverified , 12/10/15) Subjective the pt is the same irritable. stable at baseline. Objective Last 24 Hour Vital Signs Date Time Temp Pulse Resp B/P (MAP) Pulse Ox O2 Delivery O2 Flow Rate FiO2 01/02/17 16:00 98.1 91 20 155/77 97 Room Air 01/02/17 14:08 95 01/02/17 13:20 102 132/81 01/02/17 12:00 97.3 20 132/81 95 Room Air 01/02/17 10:59 102 20 100 Room Air 21 01/02/17 10:53 100 20 100 Room Air 01/02/17 08:00 97.3 100 20 125/63 99 Room Air 01/02/17 07:58 95 18 Room Air 21 01/02/17 05:35 99 142/67 01/02/17 04:00 97.5 99 20 142/67 98 Room Air 01/02/17 00:00 97.2 91 20 106/59 Room Air 01/01/17 22:16 98 16 98 Room Air 21 01/01/17 21:46 95 126/70 01/01/17 20:00 97.9 104 20 127/61 98 Room Air 01/01/17 19:37 98 18 Room Air 21 Laboratory Tests 01/02/17 08:25: White Blood Count 8.8, Red Blood Count 3.40L, Hemoglobin 10.0L, Hematocrit 32.3L , Mean Corpuscular Volume 95, Mean Corpuscular Hemoglobin 29.4, Mean Corpuscular Hemoglobin Concent 30.9L, Red Cell Distribution Width 13.5, Platelet Count 426, Mean Platelet Volume 4.7L, Neutrophils (%) (Auto) 53.5, Lymphocytes (%) (Auto) 27.0, Monocytes (%) (Auto) 13.4H, Eosinophils (%) (Auto) 5.1H, Basophils (%) (Auto) 0.9, Sodium Level 133L, Potassium Level 4.4, Chloride Level 95L, Carbon Dioxide Level 29, Anion Gap 9, Blood Urea Nitrogen 19 , Creatinine 0.6, Estimat Glomerular Filtration Rate , Glucose Level 101, Calcium Level 9.1, Total Bilirubin < 0.2, Aspartate Amino Transf (AST/SGOT) 13, Alanine Aminotransferase (ALT/SGPT) 10, Alkaline Phosphatase 93, Total Protein 6.6, Albumin 3.5, Globulin 3.1, Albumin/Globulin Ratio 1.1 Height (Feet): 5 Height (Inches): 7.00 Weight (Pounds): 250 General Appearance: no apparent distress, alert Neurologic: alert, oriented x 3, responsive, depressed affect Ivan Man M.D. Jan 02, 2017 17:05
[2017-01-02 22:22] VITALS: BP 133/69
[2017-01-03] VITALS (7 sets, daily range): BP systolic 133–159; BP diastolic 64–85
[2017-01-03] MEDS: Norco 5mg/325mg tab ORAL PRN ×4 (01:40→20:28)
[2017-01-03] MEDS ORDERED: PredniSONE 20mg tab ORAL SCH (09:00)
[2017-01-03] MEDS: LORazepam 1mg tab ORAL PRN ×2 (09:01→20:28)
[2017-01-03] MEDS: Thiamine 100mg tab ORAL SCH (09:01)
[2017-01-03] MEDS: Azithromycin 250mg tab ORAL SCH (09:02)
[2017-01-03] MEDS: Diltiazem CD 180mg cap ORAL SCH (09:02)
[2017-01-03] MEDS: Docusate 100mg cap ORAL SCH ×3 (09:02→17:23)
[2017-01-03] MEDS: Heparin 5000 units/ml inj SUBQ SCH ×2 (09:04→20:28)
[2017-01-03] MEDS: Aspirin EC 81mg tab ORAL SCH (09:10)
[2017-01-03] MEDS: DuoNeb 0.5-3(2.5)mg/3ml neb HHN PRN ×2 (10:34→19:30)
--- NOTE | 2017-01-03 11:42 | General Progress Note ---
Assessment/Plan Assessment/Plan 1. Alcoholic encephalopathy. 2. Alcoholic withdrawal. 3. Chronic obstructive pulmonary disease exacerbation. 4. Hyponatremia. 5. Hyperkalemia. 6. Anxiety/depression. 7. Homelesslessness 8. Anemia-Iron Deficiency 8. Gastrointestinal and deep vein thrombosis prophylaxis. Plan: Psych ID nephro Notes are reviewed. Discharge planning in progress Patient is competent to make decisions for placement. Per SW note, she would like to make that decision after discharge Ok to followup as out patient, once today's Hip Xray is done Subjective ROS Limited/Unobtainable: No Constitutional: Reports: weakness, other - right hip pain Cardiovascular: Reports: no symptoms Respiratory: Reports: no symptoms Allergies: Coded Allergies: No Known Allergies (Unverified , 12/10/15) Objective Last 24 Hour Vital Signs Date Time Temp Pulse Resp B/P (MAP) Pulse Ox O2 Delivery O2 Flow Rate FiO2 01/03/17 10:39 98 18 100 Room Air 21 01/03/17 10:30 95 18 100 Room Air 01/03/17 09:02 98 136/74 01/03/17 09:00 98.2 01/03/17 08:00 98.2 98 20 136/74 97 Room Air 01/03/17 07:02 92 16 Room Air 01/03/17 04:00 99.0 88 18 144/64 98 Room Air 01/03/17 00:00 98.3 98 18 159/85 97 Room Air 01/02/17 22:22 97.3 99 20 133/69 97 Room Air 01/02/17 21:40 99 133/69 01/02/17 19:45 1 16 Room Air 01/02/17 16:00 98.1 91 20 155/77 97 Room Air 01/02/17 14:08 95 01/02/17 13:20 102 132/81 01/02/17 12:00 97.3 20 132/81 95 Room Air Intake and Output 01/03/17 01/04/17 19:00 07:00 # Bowel Movements 1 Height (Feet): 5 Height (Inches): 7.00 Weight (Pounds): 250 General Appearance: no apparent distress EENT: PERRL/EOMI Neck: supple Cardiovascular: normal rate Respiratory/Chest: lungs clear Abdomen: soft Pelvis: other Extremities: non-tender 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
--- NOTE | 2017-01-03 11:45 | General Progress Note ---
Assessment/Plan Status: progressing Assessment/Plan cont current meds Subjective Constitutional: Reports: malaise, weakness Neurologic/Psychiatric: Reports: anxiety, emotional problems Allergies: Coded Allergies: No Known Allergies (Unverified , 12/10/15) Subjective the pt is more cooperative today. stable at baseline. Objective Last 24 Hour Vital Signs Date Time Temp Pulse Resp B/P (MAP) Pulse Ox O2 Delivery O2 Flow Rate FiO2 01/03/17 10:39 98 18 100 Room Air 21 01/03/17 10:30 95 18 100 Room Air 01/03/17 09:02 98 136/74 01/03/17 09:00 98.2 01/03/17 08:00 98.2 98 20 136/74 97 Room Air 01/03/17 07:02 92 16 Room Air 01/03/17 04:00 99.0 88 18 144/64 98 Room Air 01/03/17 00:00 98.3 98 18 159/85 97 Room Air 01/02/17 22:22 97.3 99 20 133/69 97 Room Air 01/02/17 21:40 99 133/69 01/02/17 19:45 1 16 Room Air 01/02/17 16:00 98.1 91 20 155/77 97 Room Air 01/02/17 14:08 95 01/02/17 13:20 102 132/81 01/02/17 12:00 97.3 20 132/81 95 Room Air Intake and Output 01/03/17 01/04/17 19:00 07:00 # Bowel Movements 1 Height (Feet): 5 Height (Inches): 7.00 Weight (Pounds): 250 General Appearance: no apparent distress, alert, overweight Neurologic: alert, oriented x 3, responsive, depressed affect Ivan Man M.D. Jan 03, 2017 11:45
--- NOTE | 2017-01-03 11:49 | Diagnostic Imaging Report ---
Indication: PAIN Technique: 2 views of the right hip Comparison: None Findings: Exam is limited due to body habitus. There is degenerative narrowing of the right hip and proliferative change. No definite acute fractures. No dislocations. Impression: Right hip degenerative changes. No definite acute bony trauma. Note, however, that in elderly osteoporotic patients, nondisplaced fractures can easily be occult. Consider cross-sectional imaging if there is high clinical suspicion
[2017-01-03] MEDS ORDERED: PROZAC20 MG ORAL (12:21)
[2017-01-03] MEDS ORDERED: PREDNISONE10 MG ORAL (12:22)
[2017-01-03] MEDS ORDERED: PANTOPRAZOLE SO40 MG ORAL (12:22)
[2017-01-03] MEDS ORDERED: AZITHROMYC200 MG/5 M ORAL (12:25)
--- NOTE | 2017-01-03 14:05 | General Progress Note ---
Assessment/Plan Status: stable Assessment/Plan 1- COPD exacerbation 2- Imbalance 3- DT'S 4. Homeless 5. HypoNatremia, unclear etiology- likely depletional- fairly corrected by saline now- 6. Anxiety//Depression 7. High K likely poor Phlebotomy and related hemolysis 8. HTN 9. Anemia , low Iron Plan: no labs today- change Norvasc to Cardiazem and change to CD Breathing Treatment Pulmonary support monitor lytes- taper steroid IV Iron one dose given placement Subjective ROS Limited/Unobtainable: No Constitutional: Reports: other Allergies: Coded Allergies: No Known Allergies (Unverified , 12/10/15) Objective Last 24 Hour Vital Signs Date Time Temp Pulse Resp B/P (MAP) Pulse Ox O2 Delivery O2 Flow Rate FiO2 01/03/17 10:39 98 18 100 Room Air 21 01/03/17 10:30 95 18 100 Room Air 01/03/17 09:02 98 136/74 01/03/17 09:00 98.2 01/03/17 08:00 98.2 98 20 136/74 97 Room Air 01/03/17 07:02 92 16 Room Air 21 01/03/17 04:00 99.0 88 18 144/64 98 Room Air 01/03/17 00:00 98.3 98 18 159/85 97 Room Air 01/02/17 22:22 97.3 99 20 133/69 97 Room Air 01/02/17 21:40 99 133/69 01/02/17 19:45 1 16 Room Air 21 01/02/17 16:00 98.1 91 20 155/77 97 Room Air 01/02/17 14:08 95 Intake and Output 01/03/17 01/04/17 19:00 07:00 # Bowel Movements 1 Height (Feet): 5 Height (Inches): 7.00 Weight (Pounds): 250 General Appearance: no apparent distress Cardiovascular: tachycardia Respiratory/Chest: other - no wheeze Objective PE not changed HENRIQUE BENNETT Jan 03, 2017 14:05
--- NOTE | 2017-01-03 14:33 | Diagnostic Imaging Report ---
Indication: PAIN Technique: One view of the pelvis Comparison: None Findings: There is mild degenerative joint space narrowing of both hips. There is proliferative change, particularly on the acetabular side. No definite acute fractures. No dislocations. Impression: No definite acute bony trauma. Note, however, that in elderly off of chronic patient's occult hip or pelvic fractures can easily be occult. Consider cross-sectional imaging if there is high clinical suspicion
--- NOTE | 2017-01-03 15:02 | Infectious Diseases Prog Note ---
Assessment/Plan Assessment/Plan ASSESSMENT: 1. Chronic obstructive pulmonary disease exacerbation. 2. s/p transient leukocytosis on steroids 01/01 resolved 01/02 3. No fever. 4. No other signs and symptoms of sepsis. 5. Tachycardia in the setting of history of alcohol use. 6. History of delirium tremens, currently on Librium. 7. Severe hyponatremia in the setting of lower extremity edema and possible poor p.o. intake and now seems to be correcting. 8. Anxiety and depression. 9. Hypertension. 10. 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 contact isolation per hospital protocol 2. Elevate lower extremities. 3. Consider compression stockings as outpatient although given her history i think she would unlikely be compliant. 4. Azithromycin D#4/5 orally for COPD exacerbation 5. no antibiotics indicated for lower extremities. 6. Monitor CBC on prednisone taper 7. Monitor lower extremity exam 8. pain control per primary service but she appeared comfortable to my exam. pending placement. covering for Dr. Scott. Subjective ROS Limited/Unobtainable: Yes Allergies: Coded Allergies: No Known Allergies (Unverified , 12/10/15) Objective Vital Signs Last 24 Hour Vital Signs Date Time Temp Pulse Resp B/P (MAP) Pulse Ox O2 Delivery O2 Flow Rate FiO2 01/03/17 14:07 98.2 01/03/17 10:39 98 18 100 Room Air 01/03/17 10:30 95 18 100 Room Air 01/03/17 09:02 98 136/74 01/03/17 08:00 98.2 98 20 136/74 97 Room Air 01/03/17 07:02 92 16 Room Air 01/03/17 04:00 99.0 88 18 144/64 98 Room Air 01/03/17 00:00 98.3 98 18 159/85 97 Room Air 01/02/17 22:22 97.3 99 20 133/69 97 Room Air 01/02/17 21:40 99 133/69 01/02/17 19:45 1 16 Room Air 01/02/17 16:00 98.1 91 20 155/77 97 Room Air Height (Feet): 5 Height (Inches): 7.00 Weight (Pounds): 250 Objective GENERAL APPEARANCE: Ambulatory well-developed and well nourished, slightly obese female. HEENT: Normocephalic and atraumatic. Poor dentition. NECK: No cervical lymphadenopathy. No jugular venous distention. No thyromegaly. CARDIOVASCULAR: Tachycardic. No murmurs. Diminished heart sounds. LUNGS: Diffuse wheezes throughout. No crackles. No rales. No dullness to percussion. ABDOMINAL: Normal bowel sounds. Obese and nontender. No right upper quadrant pain to palpation. No suprapubic pain to palpation. No hepatosplenomegaly. EXTREMITIES: She has no erythema or fluctuance to either thighs despite the report of a possible recent infection of thighs. She has no skin breakdown. She has severe onychomycosis of her toenails bilaterally. Lower extremities, she has tense, woody edema from just below the level of the knee distally consistent with venous stasis changes, not particularly warm, slightly erythematous. Pulses distally are intact. Cap refill is brisk. SKIN: As described above. She has no petechia and no purpura. No cyanosis. No mottling. GENITOURINARY: Deferred. RECTAL: Deferred. Current Medications Medications (Trade) Dose Ordered Sig/Isabella Route PRN Reason Start Time Stop Time Status Last Admin Dose Admin Acetaminophen/ Hydrocodone Bitart ([place] 5/325) 1 tab Q4H PRN ORAL PAIN 4-10 01/01/17 15:30 01/06/17 15:29 01/03/17 12:48 Albuterol/ Ipratropium (DuoNeb 0.5-3(2.5)mg/3ml) 3 ml Q4H PRN HHN Shortness of Breath 01/01/17 15:30 01/04/17 15:29 01/03/17 10:34 Aspirin (Ecotrin) 81 mg DAILY ORAL 01/02/17 09:00 01/29/17 20:59 01/03/17 09:10 Azithromycin (Zithromax) 250 mg DAILY ORAL 01/02/17 09:00 01/04/17 08:59 01/03/17 09:02 Chlordiazepoxide (Librium) 25 mg Q8H PRN ORAL alcohol withdrawal 01/01/17 15:30 01/07/17 15:29 Diltiazem HCl (Cardizem CD) 180 mg DAILY ORAL 01/03/17 09:00 02/02/17 08:59 01/03/17 09:02 Docusate Sodium (Colace) 100 mg THREE TIMES A DAY ORAL 01/02/17 14:00 02/01/17 13:59 01/03/17 12:48 Ferrous Sulfate (Feosol) 325 mg THREE TIMES A DAY ORAL 01/02/17 09:30 02/01/17 09:29 01/03/17 12:48 Fluoxetine HCl (PROzac) 20 mg DAILY ORAL 01/02/17 09:00 01/31/17 08:59 01/03/17 09:02 Folic Acid (Folate) 1 mg DAILY ORAL 01/02/17 09:00 01/30/17 08:59 01/03/17 09:01 Heparin Sodium (Porcine) (Heparin 5000 units/ml) 5,000 units EVERY 12 HOURS SUBQ 01/01/17 21:00 01/29/17 20:59 01/03/17 09:04 Lorazepam (Ativan 2mg/ml 1ml) 1 mg Q4H PRN IV For Anxiety 01/01/17 15:30 01/06/17 15:29 Lorazepam (Ativan) 1 mg Q6H PRN ORAL For Anxiety 01/01/17 15:30 01/07/17 15:29 01/03/17 09:01 Pantoprazole (Protonix) 40 mg BID ORAL 01/01/17 18:00 01/29/17 20:59 01/03/17 09:01 Prednisone (predniSONE) 30 mg DAILY ORAL 01/04/17 09:00 02/03/17 08:59 Promethazine HCl/ Codeine (Phenergan with Codeine) 5 ml Q4H PRN ORAL For Cough 01/01/17 15:30 01/30/17 15:29 Thiamine HCl (Vitamin B1) 100 mg DAILY ORAL 01/02/17 09:00 02/01/17 08:59 01/03/17 09:01 Torres Cobian M.D. Jan 03, 2017 15:02
--- NOTE | 2017-01-03 15:04 | Cardiology Report ---
APPROVED REPORT EXAM: Two-dimensional and M-mode echocardiogram with Doppler and color Doppler. INDICATION Other M-Mode DIMENSIONS IVSd0.9 (0.7-1.1cm)Left Atrium (MM)4.0 (1.6-4.0cm) LVDd4.6 (3.5-5.6cm)Aortic Root2.7 (2.0-3.7cm) PWd1.0 (0.7-1.1cm)Aortic Cusp Exc.1.8 (1.5-2.0cm) LVDs2.1 (2.5-4.0cm) PWs0.8 cm Technically difficult study due to poor acoustic windows. Normal left ventricular chamber size, systolic function and wall motion. Left ventricular ejection fraction estimated to be 60-65%. No evidence of left ventricular hypertrophy. No evidence of pericardial fat or effusion. Mild bi-atrial enlargement by 2D. Focal aortic valve sclerosis with adequate cusp excursion Mildly thickened mitral valve leaflets with normal excursion. Mild mitral annulus and aortic root calcification. Pulmonic valve not well visualized. Normal tricuspid valve structure. IVC not obtainable. A color flow and spectral Doppler study was performed and revealed: No aortic regurgitation. No mitral regurgitation. Left ventricular diastolic dysfunction grade 1. Trace tricuspid regurgitation. Tricuspid systolic velocities suggests peak right ventricular systolic pressure of 33 mmHg
--- NOTE | 2017-01-03 16:26 | Pulmonology Progress Note ---
Assessment/Plan Problems: (1) COPD exacerbation (2) Purulent bronchitis (3) Cellulitis of right leg (4) Alcohol dependence (5) HTN (hypertension) Assessment/Plan on prednisone 40 mg improving social service consult titrate fio2 to sat of 92% dvt prophylaxis Subjective ROS Limited/Unobtainable: No Constitutional: Reports: no symptoms HEENT: Repors: no symptoms Respiratory: Reports: no symptoms Cardiovascular: Reports: no symptoms Allergies: Coded Allergies: No Known Allergies (Unverified , 12/10/15) Objective Last 24 Hour Vital Signs Date Time Temp Pulse Resp B/P (MAP) Pulse Ox O2 Delivery O2 Flow Rate FiO2 01/03/17 16:00 97.3 79 20 133/77 96 Room Air 01/03/17 14:07 98.2 01/03/17 12:00 97.5 89 20 135/72 97 Room Air 01/03/17 10:39 98 18 100 Room Air 21 01/03/17 10:30 95 18 100 Room Air 01/03/17 09:02 98 136/74 01/03/17 08:00 98.2 98 20 136/74 97 Room Air 01/03/17 07:02 92 16 Room Air 21 01/03/17 04:00 99.0 88 18 144/64 98 Room Air 01/03/17 00:00 98.3 98 18 159/85 97 Room Air 01/02/17 22:22 97.3 99 20 133/69 97 Room Air 01/02/17 21:40 99 133/69 01/02/17 19:45 1 16 Room Air 21 Intake and Output 01/03/17 01/04/17 19:00 07:00 # Bowel Movements 1 General Appearance: WD/WN HEENT: normocephalic, atraumatic Respiratory/Chest: chest wall non-tender, lungs clear Cardiovascular: normal peripheral pulses, normal rate, regular rhythm Abdomen: normal bowel sounds, soft, non tender Genitourinary: normal external genitalia Extremities: no cyanosis Skin: no ulcers 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, no motor/sensory deficits, alert, responsive Lymphatic: no neck adenopathy Current Medications Medications (Trade) Dose Ordered Sig/Isabella Route PRN Reason Start Time Stop Time Status Last Admin Dose Admin Acetaminophen/ Hydrocodone Bitart ([place] 5/325) 1 tab Q4H PRN ORAL PAIN 4-10 01/01/17 15:30 01/06/17 15:29 01/03/17 12:48 Albuterol/ Ipratropium (DuoNeb 0.5-3(2.5)mg/3ml) 3 ml Q4H PRN HHN Shortness of Breath 01/01/17 15:30 01/04/17 15:29 01/03/17 10:34 Aspirin (Ecotrin) 81 mg DAILY ORAL 01/02/17 09:00 01/29/17 20:59 01/03/17 09:10 Azithromycin (Zithromax) 250 mg DAILY ORAL 01/02/17 09:00 01/04/17 08:59 01/03/17 09:02 Chlordiazepoxide (Librium) 25 mg Q8H PRN ORAL alcohol withdrawal 01/01/17 15:30 01/07/17 15:29 Diltiazem HCl (Cardizem CD) 180 mg DAILY ORAL 01/03/17 09:00 02/02/17 08:59 01/03/17 09:02 Docusate Sodium (Colace) 100 mg THREE TIMES A DAY ORAL 01/02/17 14:00 02/01/17 13:59 01/03/17 12:48 Ferrous Sulfate (Feosol) 325 mg THREE TIMES A DAY ORAL 01/02/17 09:30 02/01/17 09:29 01/03/17 12:48 Fluoxetine HCl (PROzac) 20 mg DAILY ORAL 01/02/17 09:00 01/31/17 08:59 01/03/17 09:02 Folic Acid (Folate) 1 mg DAILY ORAL 01/02/17 09:00 01/30/17 08:59 01/03/17 09:01 Heparin Sodium (Porcine) (Heparin 5000 units/ml) 5,000 units EVERY 12 HOURS SUBQ 01/01/17 21:00 01/29/17 20:59 01/03/17 09:04 Lorazepam (Ativan 2mg/ml 1ml) 1 mg Q4H PRN IV For Anxiety 01/01/17 15:30 01/06/17 15:29 Lorazepam (Ativan) 1 mg Q6H PRN ORAL For Anxiety 01/01/17 15:30 01/07/17 15:29 01/03/17 09:01 Pantoprazole (Protonix) 40 mg BID ORAL 01/01/17 18:00 01/29/17 20:59 01/03/17 09:01 Prednisone (predniSONE) 30 mg DAILY ORAL 01/04/17 09:00 02/03/17 08:59 Promethazine HCl/ Codeine (Phenergan with Codeine) 5 ml Q4H PRN ORAL For Cough 01/01/17 15:30 01/30/17 15:29 Thiamine HCl (Vitamin B1) 100 mg DAILY ORAL 01/02/17 09:00 02/01/17 08:59 01/03/17 09:01 NOREEN COLON Jan 03, 2017 16:26
--- NOTE | 2017-01-03 16:57 | Cardiology Report ---
APPROVED REPORT EKG Measurement Heart [id number] Normal sinus rhythm Normal ECG
[2017-01-04 04:00] VITALS: BP 157/88
[2017-01-04 07:52] LABS: OTHERS PATHOLOGIST COMMENT
[2017-01-04 08:14] VITALS: BP 138/87
[2017-01-04] MEDS: Aspirin EC 81mg tab ORAL SCH (08:30)
[2017-01-04] MEDS: Docusate 100mg cap ORAL SCH ×3 (08:30→17:04)
[2017-01-04] MEDS: LORazepam 1mg tab ORAL PRN (08:30)
[2017-01-04] MEDS: Diltiazem CD 180mg cap ORAL SCH (08:30)
[2017-01-04] MEDS: Thiamine 100mg tab ORAL SCH (08:31)
[2017-01-04] MEDS: Heparin 5000 units/ml inj SUBQ SCH ×2 (08:35→20:58)
[2017-01-04] MEDS ORDERED: PredniSONE 20mg tab ORAL SCH (09:00)
[2017-01-04] MEDS ORDERED: FERROUS SULFAT325 MG ORAL (11:00)
[2017-01-04] MEDS ORDERED: CARDIZEM CD180 MG ORAL (11:01)
[2017-01-04] MEDS ORDERED: CHLORDIAZEPOXID25 MG PO (11:02)
[2017-01-04 11:26] VITALS: BP 121/63
[2017-01-04] MEDS: Norco 5mg/325mg tab ORAL PRN (12:29)
[2017-01-04] MEDS: DuoNeb 0.5-3(2.5)mg/3ml neb HHN PRN (12:58)
--- NOTE | 2017-01-04 14:51 | Diagnostic Imaging Report ---
APPROVED REPORT CPT Code: 90669 Present Symptoms Comments: Pain BILATERAL: Imaging reveals a patent deep venous system bilaterally. There is no evidence of thrombus within the femoral, popliteal or tibial segments. The greater saphenous veins are also within normal limits. Doppler indicates normal spontaneous flow within these segments.
--- NOTE | 2017-01-04 14:59 | General Progress Note ---
Assessment/Plan Status: stable Assessment/Plan 1. Alcoholic encephalopathy. 2. Alcoholic withdrawal. 3. Chronic obstructive pulmonary disease exacerbation. 4. Hyponatremia. 5. Hyperkalemia. 6. Anxiety/depression. 7. Homelesslessness 8. Anemia-Iron Deficiency 9. Gastrointestinal and deep vein thrombosis prophylaxis. Plan: Psych ID nephro Notes are reviewed. Discharge planning in progress Patient is competent to make decisions for placement. Agreed for SNIF placement. pending placement Subjective ROS Limited/Unobtainable: No Constitutional: Reports: no symptoms HEENT: Reports: no symptoms Cardiovascular: Reports: no symptoms Respiratory: Reports: no symptoms Allergies: Coded Allergies: No Known Allergies (Unverified , 12/10/15) Objective Last 24 Hour Vital Signs Date Time Temp Pulse Resp B/P (MAP) Pulse Ox O2 Delivery O2 Flow Rate FiO2 01/04/17 14:48 97.5 01/04/17 13:15 99 20 98 Room Air 01/04/17 12:58 93 18 98 Room Air 01/04/17 11:26 97.5 109 19 121/63 95 Room Air 01/04/17 08:30 96 138/87 01/04/17 08:14 97.2 96 20 138/87 95 Room Air 01/04/17 07:30 Room Air 01/04/17 04:00 98.6 95 18 157/88 100 Room Air 01/03/17 23:46 97.3 106 18 157/78 96 Room Air 01/03/17 20:13 99 20 100 Room Air 21 01/03/17 20:13 97 18 98 Room Air 01/03/17 20:10 93 16 Room Air 21 01/03/17 20:00 99.1 95 19 145/79 96 Room Air 01/03/17 16:00 97.3 79 20 133/77 96 Room Air Intake and Output 01/04/17 01/05/17 19:00 07:00 Intake Total 520 ml Output Total 500 ml Balance 20 ml Intake Oral 520 ml Output Urine Total 500 ml # Bowel Movements 1 Height (Feet): 5 Height (Inches): 7.00 Weight (Pounds): 250 General Appearance: no apparent distress EENT: PERRL/EOMI Neck: supple Cardiovascular: normal rate Respiratory/Chest: lungs clear Abdomen: soft Extremities: other - 1 plus pitting edema Neurologic: other - wide base Onyx. using walker Rezvani,Mohammad MD Jan 04, 2017 14:59
--- NOTE | 2017-01-04 15:41 | General Progress Note ---
Assessment/Plan Status: stable Assessment/Plan 1- COPD exacerbation 2- Imbalance 3- DT'S 4. Homeless 5. HypoNatremia, unclear etiology- likely depletional- fairly corrected by saline now- 6. Anxiety//Depression 7. High K likely poor Phlebotomy and related hemolysis 8. HTN 9. Anemia , low Iron Plan: no labs today- change Norvasc to Cardiazem and change to CD Breathing Treatment Pulmonary support monitor lytes- taper steroid IV Iron one dose given placement Subjective ROS Limited/Unobtainable: No Constitutional: Reports: malaise Allergies: Coded Allergies: No Known Allergies (Unverified , 12/10/15) Objective Last 24 Hour Vital Signs Date Time Temp Pulse Resp B/P (MAP) Pulse Ox O2 Delivery O2 Flow Rate FiO2 01/04/17 14:48 97.5 01/04/17 13:15 99 20 98 Room Air 01/04/17 12:58 93 18 98 Room Air 01/04/17 11:26 97.5 109 19 121/63 95 Room Air 01/04/17 08:30 96 138/87 01/04/17 08:14 97.2 96 20 138/87 95 Room Air 01/04/17 07:30 Room Air 01/04/17 04:00 98.6 95 18 157/88 100 Room Air 01/03/17 23:46 97.3 106 18 157/78 96 Room Air 01/03/17 20:13 99 20 100 Room Air 21 01/03/17 20:13 97 18 98 Room Air 01/03/17 20:10 93 16 Room Air 21 01/03/17 20:00 99.1 95 19 145/79 96 Room Air 01/03/17 16:00 97.3 79 20 133/77 96 Room Air Intake and Output 01/04/17 01/05/17 19:00 07:00 Intake Total 520 ml Output Total 500 ml Balance 20 ml Intake Oral 520 ml Output Urine Total 500 ml # Bowel Movements 1 Height (Feet): 5 Height (Inches): 7.00 Weight (Pounds): 250 General Appearance: no apparent distress Objective PE not changed HENRIQUE BENNETT Jan 04, 2017 15:41
[2017-01-04 15:56] VITALS: BP 127/64
--- NOTE | 2017-01-04 16:20 | Pulmonology Progress Note ---
Assessment/Plan Problems: (1) COPD exacerbation (2) Purulent bronchitis (3) Cellulitis of right leg (4) Alcohol dependence (5) HTN (hypertension) Assessment/Plan on prednisone improving social service consult titrate fio2 to sat of 92% dvt prophylaxis dc planning Subjective ROS Limited/Unobtainable: No Constitutional: Reports: no symptoms Respiratory: Reports: no symptoms Cardiovascular: Reports: no symptoms Allergies: Coded Allergies: No Known Allergies (Unverified , 12/10/15) Objective Last 24 Hour Vital Signs Date Time Temp Pulse Resp B/P (MAP) Pulse Ox O2 Delivery O2 Flow Rate FiO2 01/04/17 15:56 97.9 100 19 127/64 98 Room Air 01/04/17 15:29 98 20 100 Room Air 01/04/17 15:26 94 16 99 Room Air 01/04/17 14:48 97.5 01/04/17 13:15 99 20 98 Room Air 01/04/17 12:58 93 18 98 Room Air 01/04/17 11:26 97.5 109 19 121/63 95 Room Air 01/04/17 08:30 96 138/87 01/04/17 08:14 97.2 96 20 138/87 95 Room Air 01/04/17 07:30 Room Air 01/04/17 04:00 98.6 95 18 157/88 100 Room Air 01/03/17 23:46 97.3 106 18 157/78 96 Room Air 01/03/17 20:13 99 20 100 Room Air 21 01/03/17 20:13 97 18 98 Room Air 01/03/17 20:10 93 16 Room Air 01/03/17 20:00 99.1 95 19 145/79 96 Room Air Intake and Output 01/04/17 01/05/17 19:00 07:00 Intake Total 520 ml Output Total 500 ml Balance 20 ml Intake Oral 520 ml Output Urine Total 500 ml # Bowel Movements 1 General Appearance: WD/WN HEENT: normocephalic, atraumatic Respiratory/Chest: chest wall non-tender, lungs clear Cardiovascular: normal peripheral pulses, normal rate Abdomen: normal bowel sounds, soft, non tender Extremities: no cyanosis, no clubbing Skin: no rash, no lesions Current Medications Medications (Trade) Dose Ordered Sig/Isabella Route PRN Reason Start Time Stop Time Status Last Admin Dose Admin Acetaminophen/ Hydrocodone Bitart ([place] 5/325) 1 tab Q4H PRN ORAL PAIN 4-10 01/01/17 15:30 01/06/17 15:29 01/04/17 12:29 Aspirin (Ecotrin) 81 mg DAILY ORAL 01/02/17 09:00 01/29/17 20:59 01/04/17 08:30 Carvedilol (Coreg) 3.125 mg EVERY 12 HOURS ORAL 01/04/17 21:00 02/03/17 20:59 Chlordiazepoxide (Librium) 25 mg Q8H PRN ORAL alcohol withdrawal 01/01/17 15:30 01/07/17 15:29 Diltiazem HCl (Cardizem CD) 180 mg DAILY ORAL 01/03/17 09:00 02/02/17 08:59 01/04/17 08:30 Docusate Sodium (Colace) 100 mg THREE TIMES A DAY ORAL 01/02/17 14:00 02/01/17 13:59 01/04/17 12:29 Ferrous Sulfate (Feosol) 325 mg THREE TIMES A DAY ORAL 01/02/17 09:30 02/01/17 09:29 01/04/17 12:29 Fluoxetine HCl (PROzac) 20 mg DAILY ORAL 01/02/17 09:00 01/31/17 08:59 01/04/17 08:30 Folic Acid (Folate) 1 mg DAILY ORAL 01/02/17 09:00 01/30/17 08:59 01/04/17 08:30 Heparin Sodium (Porcine) (Heparin 5000 units/ml) 5,000 units EVERY 12 HOURS SUBQ 01/01/17 21:00 01/29/17 20:59 01/04/17 08:35 Lorazepam (Ativan 2mg/ml 1ml) 1 mg Q4H PRN IV For Anxiety 01/01/17 15:30 01/06/17 15:29 Lorazepam (Ativan) 1 mg Q6H PRN ORAL For Anxiety 01/01/17 15:30 01/07/17 15:29 01/04/17 08:30 Pantoprazole (Protonix) 40 mg BID ORAL 01/01/17 18:00 01/29/17 20:59 01/04/17 08:31 Prednisone (predniSONE) 5 mg DAILY ORAL 01/05/17 09:00 02/04/17 08:59 Prednisone (predniSONE) 20 mg DAILY ORAL 01/05/17 09:00 02/04/17 08:59 Promethazine HCl/ Codeine (Phenergan with Codeine) 5 ml Q4H PRN ORAL For Cough 01/01/17 15:30 01/30/17 15:29 Thiamine HCl (Vitamin B1) 100 mg DAILY ORAL 01/02/17 09:00 02/01/17 08:59 01/04/17 08:31 NOREEN COLON Jan 04, 2017 16:20
--- NOTE | 2017-01-04 17:46 | Infectious Diseases Prog Note ---
Assessment/Plan Assessment/Plan ASSESSMENT: 1. Chronic obstructive pulmonary disease exacerbation. 2. s/p transient leukocytosis on steroids 01/01 resolved 01/02 3. No fever. 4. No other signs and symptoms of sepsis. 5. Tachycardia in the setting of history of alcohol use. 6. History of delirium tremens, currently on Librium. 7. Severe hyponatremia in the setting of lower extremity edema and possible poor p.o. intake and now seems to be correcting. 8. Anxiety and depression. 9. Hypertension. 10. 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 contact isolation per hospital protocol 2. Elevate lower extremities. 3. Consider compression stockings as outpatient although given her history i think she would unlikely be compliant. 4. DC Azithromycin D# 5 / 5 orally for COPD exacerbation 5. no antibiotics indicated for lower extremities. 6. Monitor CBC on prednisone taper 7. Monitor lower extremity exam Subjective Constitutional: Denies: no symptoms, fever, chills, fatigue, anorexia, drenching sweats, other Allergies: Coded Allergies: No Known Allergies (Unverified , 12/10/15) Objective Vital Signs Last 24 Hour Vital Signs Date Time Temp Pulse Resp B/P (MAP) Pulse Ox O2 Delivery O2 Flow Rate FiO2 01/04/17 15:56 97.9 100 19 127/64 98 Room Air 01/04/17 15:29 98 20 100 Room Air 01/04/17 15:26 94 16 99 Room Air 01/04/17 14:48 97.5 01/04/17 13:15 99 20 98 Room Air 01/04/17 12:58 93 18 98 Room Air 01/04/17 11:26 97.5 109 19 121/63 95 Room Air 01/04/17 08:30 96 138/87 01/04/17 08:14 97.2 96 20 138/87 95 Room Air 01/04/17 07:30 Room Air 01/04/17 04:00 98.6 95 18 157/88 100 Room Air 01/03/17 23:46 97.3 106 18 157/78 96 Room Air 01/03/17 20:13 99 20 100 Room Air 21 01/03/17 20:13 97 18 98 Room Air 01/03/17 20:10 93 16 Room Air 21 01/03/17 20:00 99.1 95 19 145/79 96 Room Air Height (Feet): 5 Height (Inches): 7.00 Weight (Pounds): 250 HEENT: anicteric Respiratory/Chest: no respiratory distress Cardiovascular: no gallop/murmur Abdomen: no organomegaly Current Medications Medications (Trade) Dose Ordered Sig/Isabella Route PRN Reason Start Time Stop Time Status Last Admin Dose Admin Acetaminophen/ Hydrocodone Bitart ([place] 5/325) 1 tab Q4H PRN ORAL PAIN 4-10 01/01/17 15:30 01/06/17 15:29 01/04/17 12:29 Aspirin (Ecotrin) 81 mg DAILY ORAL 01/02/17 09:00 01/29/17 20:59 01/04/17 08:30 Carvedilol (Coreg) 3.125 mg EVERY 12 HOURS ORAL 01/04/17 21:00 02/03/17 20:59 Chlordiazepoxide (Librium) 25 mg Q8H PRN ORAL alcohol withdrawal 01/01/17 15:30 01/07/17 15:29 Diltiazem HCl (Cardizem CD) 180 mg DAILY ORAL 01/03/17 09:00 02/02/17 08:59 01/04/17 08:30 Docusate Sodium (Colace) 100 mg THREE TIMES A DAY ORAL 01/02/17 14:00 02/01/17 13:59 01/04/17 17:04 Ferrous Sulfate (Feosol) 325 mg THREE TIMES A DAY ORAL 01/02/17 09:30 02/01/17 09:29 01/04/17 17:04 Fluoxetine HCl (PROzac) 20 mg DAILY ORAL 01/02/17 09:00 01/31/17 08:59 01/04/17 08:30 Folic Acid (Folate) 1 mg DAILY ORAL 01/02/17 09:00 01/30/17 08:59 01/04/17 08:30 Heparin Sodium (Porcine) (Heparin 5000 units/ml) 5,000 units EVERY 12 HOURS SUBQ 01/01/17 21:00 01/29/17 20:59 01/04/17 08:35 Lorazepam (Ativan 2mg/ml 1ml) 1 mg Q4H PRN IV For Anxiety 01/01/17 15:30 01/06/17 15:29 Lorazepam (Ativan) 1 mg Q6H PRN ORAL For Anxiety 01/01/17 15:30 01/07/17 15:29 01/04/17 08:30 Pantoprazole (Protonix) 40 mg BID ORAL 01/01/17 18:00 01/29/17 20:59 01/04/17 17:06 Prednisone (predniSONE) 5 mg DAILY ORAL 01/05/17 09:00 02/04/17 08:59 Prednisone (predniSONE) 20 mg DAILY ORAL 01/05/17 09:00 02/04/17 08:59 Promethazine HCl/ Codeine (Phenergan with Codeine) 5 ml Q4H PRN ORAL For Cough 01/01/17 15:30 01/30/17 15:29 Thiamine HCl (Vitamin B1) 100 mg DAILY ORAL 01/02/17 09:00 02/01/17 08:59 01/04/17 08:31 LEIA GUAMAN M.D. Jan 04, 2017 17:46
[2017-01-04 20:00] VITALS: BP 131/69
--- NOTE | 2017-01-04 22:57 | General Progress Note ---
Assessment/Plan Status: stable, progressing Assessment/Plan cont current meds Subjective Neurologic/Psychiatric: Reports: anxiety, depressed, emotional problems Allergies: Coded Allergies: No Known Allergies (Unverified , 12/10/15) Subjective the pt is more cooperative today. stable at baseline. Objective Last 24 Hour Vital Signs Date Time Temp Pulse Resp B/P (MAP) Pulse Ox O2 Delivery O2 Flow Rate FiO2 01/04/17 20:56 89 134/76 01/04/17 20:00 96 18 Room Air 01/04/17 15:56 97.9 100 19 127/64 98 Room Air 01/04/17 15:29 98 20 100 Room Air 21 01/04/17 15:26 94 16 99 Room Air 01/04/17 14:48 97.5 01/04/17 13:15 99 20 98 Room Air 01/04/17 12:58 93 18 98 Room Air 01/04/17 11:26 97.5 109 19 121/63 95 Room Air 01/04/17 08:30 96 138/87 01/04/17 08:14 97.2 96 20 138/87 95 Room Air 01/04/17 07:30 Room Air 01/04/17 04:00 98.6 95 18 157/88 100 Room Air 01/03/17 23:46 97.3 106 18 157/78 96 Room Air Intake and Output 01/04/17 01/05/17 19:00 07:00 Intake Total 520 ml 240 ml Output Total 500 ml Balance 20 ml 240 ml Intake Oral 520 ml 240 ml Output Urine Total 500 ml # Bowel Movements 1 Height (Feet): 5 Height (Inches): 7.00 Weight (Pounds): 250 General Appearance: alert, overweight Neurologic: alert, oriented x 3, responsive, depressed affect Ivan Man M.D. Jan 04, 2017 22:57
[2017-01-05] VITALS: BP 137/75
[2017-01-05 04:00] VITALS: BP 142/77
[2017-01-05] MEDS: Norco 5mg/325mg tab ORAL PRN (05:24)
--- NOTE | 2017-01-05 07:50 | Pulmonology Progress Note ---
Assessment/Plan Assessment/Plan ASSESSMENT acute COPD exacerbation purulent bronchitis chronic venous stasis BLE HTN alcoholic encephalopathy possible ETOH w/drawal hyper K hypo Na ETOH abuse with dependency anemia PLAN OF CARE O2 HHN prn oral steroids and taper abx, a/tussive prn sputum cx if able ID follows CXR with COPD changes, no acute cardiopulmonary pathology elevate LE Venous Duplex BLE -negative ECHO with pEF 60-65% and RVSP of 33 BP management with CCB( changed to Cardizem CD), contionue CCB and BB for BP control, optimize further as needed nephro follows monitor renal parameters, lytes, correct lytes as needed Na up to 133 K down to normal DVT GI prophylaxis continue Folate ,Thiamine on awake counselor on abstinence form ETOH R hip X ray no acute bony trauma Librium prn monitor HH continue iron supplements SS for placement , awaiting for placement case discussed and evaluated by supervising physician Subjective Allergies: Coded Allergies: No Known Allergies (Unverified , 12/10/15) Subjective denies cough, congestion afebrile, mild leuk today reluctant to provide answers to questions Objective Last 24 Hour Vital Signs Date Time Temp Pulse Resp B/P (MAP) Pulse Ox O2 Delivery O2 Flow Rate FiO2 01/05/17 06:23 97.5 01/05/17 04:00 97.5 96 20 142/77 97 Room Air 01/05/17 00:00 98.1 94 18 137/75 97 Room Air 01/04/17 20:56 89 134/76 01/04/17 20:00 96 18 Room Air 01/04/17 20:00 97.6 92 18 131/69 99 Room Air 01/04/17 15:56 97.9 100 19 127/64 98 Room Air 01/04/17 15:29 98 20 100 Room Air 21 01/04/17 15:26 94 16 99 Room Air 01/04/17 13:15 99 20 98 Room Air 01/04/17 12:58 93 18 98 Room Air 01/04/17 11:26 97.5 109 19 121/63 95 Room Air 01/04/17 08:30 96 138/87 01/04/17 08:14 97.2 96 20 138/87 95 Room Air Objective General Appearance: no acute distress, obese AA female in NAD HEENT: normocephalic, atraumatic, anicteric, mucous membranes moist Respiratory/Chest: chest wall non-tender, no respiratory distress, no accessory muscle use, decreased breath sounds Cardiovascular: normal rate, regular rhythm, no JVD Abdomen: normal bowel sounds, soft, non tender - obese Genitourinary: normal external genitalia Extremities: other - trace edema BLE Skin: other - chronic venous stasis changes BLE Neurologic/Psychiatric: alert, responsive Current Medications Medications (Trade) Dose Ordered Sig/Isabella Route PRN Reason Start Time Stop Time Status Last Admin Dose Admin Acetaminophen/ Hydrocodone Bitart ([place] 5/325) 1 tab Q4H PRN ORAL PAIN 4-10 01/01/17 15:30 01/06/17 15:29 01/05/17 05:24 Aspirin (Ecotrin) 81 mg DAILY ORAL 01/02/17 09:00 01/29/17 20:59 01/04/17 08:30 Carvedilol (Coreg) 3.125 mg EVERY 12 HOURS ORAL 01/04/17 21:00 02/03/17 20:59 01/04/17 20:56 Chlordiazepoxide (Librium) 25 mg Q8H PRN ORAL alcohol withdrawal 01/01/17 15:30 01/07/17 15:29 Diltiazem HCl (Cardizem CD) 180 mg DAILY ORAL 01/03/17 09:00 02/02/17 08:59 01/04/17 08:30 Docusate Sodium (Colace) 100 mg THREE TIMES A DAY ORAL 01/02/17 14:00 02/01/17 13:59 01/04/17 17:04 Ferrous Sulfate (Feosol) 325 mg THREE TIMES A DAY ORAL 01/02/17 09:30 02/01/17 09:29 01/04/17 17:04 Fluoxetine HCl (PROzac) 20 mg DAILY ORAL 01/02/17 09:00 01/31/17 08:59 01/04/17 08:30 Folic Acid (Folate) 1 mg DAILY ORAL 01/02/17 09:00 01/30/17 08:59 01/04/17 08:30 Heparin Sodium (Porcine) (Heparin 5000 units/ml) 5,000 units EVERY 12 HOURS SUBQ 01/01/17 21:00 01/29/17 20:59 01/04/17 20:58 Lorazepam (Ativan 2mg/ml 1ml) 1 mg Q4H PRN IV For Anxiety 01/01/17 15:30 01/06/17 15:29 Lorazepam (Ativan) 1 mg Q6H PRN ORAL For Anxiety 01/01/17 15:30 01/07/17 15:29 01/04/17 08:30 Pantoprazole (Protonix) 40 mg BID ORAL 01/01/17 18:00 01/29/17 20:59 01/04/17 17:06 Prednisone (predniSONE) 5 mg DAILY ORAL 01/05/17 09:00 02/04/17 08:59 Prednisone (predniSONE) 20 mg DAILY ORAL 01/05/17 09:00 02/04/17 08:59 Promethazine HCl/ Codeine (Phenergan with Codeine) 5 ml Q4H PRN ORAL For Cough 01/01/17 15:30 01/30/17 15:29 Thiamine HCl (Vitamin B1) 100 mg DAILY ORAL 01/02/17 09:00 02/01/17 08:59 01/04/17 08:31 Hi[facility] HospitalAshley Arriola NP Jan 05, 2017 07:50
[2017-01-05 08:00] VITALS: BP 127/55
[2017-01-05] MEDS: Thiamine 100mg tab ORAL SCH (08:59)
[2017-01-05] MEDS: Aspirin EC 81mg tab ORAL SCH (08:59)
[2017-01-05] MEDS: Diltiazem CD 180mg cap ORAL SCH (08:59)
[2017-01-05] MEDS ORDERED: PredniSONE 5mg tab ORAL SCH (09:00)
[2017-01-05] MEDS: Docusate 100mg cap ORAL SCH ×2 (09:00→12:41)
[2017-01-05] MEDS ORDERED: PredniSONE 20mg tab ORAL SCH (09:00)
[2017-01-05] MEDS: Heparin 5000 units/ml inj SUBQ SCH (09:07)
--- NOTE | 2017-01-05 09:51 | General Progress Note ---
Assessment/Plan Status: stable Assessment/Plan 1- COPD exacerbation 2- Imbalance 3- DT'S 4. Homeless 5. HypoNatremia, unclear etiology- likely depletional- fairly corrected by saline now- 6. Anxiety//Depression 7. High K likely poor Phlebotomy and related hemolysis 8. HTN 9. Anemia , low Iron Plan: no labs today- change Norvasc to Cardiazem and change to CD Breathing Treatment Pulmonary support monitor lytes- taper steroid IV Iron one dose given placement Subjective ROS Limited/Unobtainable: No Allergies: Coded Allergies: No Known Allergies (Unverified , 12/10/15) Objective Last 24 Hour Vital Signs Date Time Temp Pulse Resp B/P (MAP) Pulse Ox O2 Delivery O2 Flow Rate FiO2 01/05/17 09:01 94 127/55 01/05/17 08:59 94 127/55 01/05/17 08:00 97.3 94 19 127/55 96 Room Air 01/05/17 06:23 97.5 01/05/17 04:00 97.5 96 20 142/77 97 Room Air 01/05/17 00:00 98.1 94 18 137/75 97 Room Air 01/04/17 20:56 89 134/76 01/04/17 20:00 96 18 Room Air 01/04/17 20:00 97.6 92 18 131/69 99 Room Air 01/04/17 15:56 97.9 100 19 127/64 98 Room Air 01/04/17 15:29 98 20 100 Room Air 21 01/04/17 15:26 94 16 99 Room Air 01/04/17 13:15 99 20 98 Room Air 01/04/17 12:58 93 18 98 Room Air 01/04/17 11:26 97.5 109 19 121/63 95 Room Air Intake and Output 01/05/17 01/06/17 19:00 07:00 Intake Total 480 ml Balance 480 ml Intake Oral 480 ml # Bowel Movements 1 Height (Feet): 5 Height (Inches): 7.00 Weight (Pounds): 250 General Appearance: no apparent distress Objective PE not changed HENRIQUE BENNETT Jan 05, 2017 09:51
[2017-01-05 12:00] VITALS: BP 114/67
--- NOTE | 2017-01-05 15:12 | General Progress Note ---
Assessment/Plan Status: stable, progressing Assessment/Plan cont current meds Subjective Neurologic/Psychiatric: Reports: anxiety, depressed, emotional problems Allergies: Coded Allergies: No Known Allergies (Unverified , 12/10/15) Subjective the pt is more cooperative today. stable at baseline. Objective Last 24 Hour Vital Signs Date Time Temp Pulse Resp B/P (MAP) Pulse Ox O2 Delivery O2 Flow Rate FiO2 01/05/17 12:00 97.8 94 19 114/67 94 Room Air 01/05/17 09:01 94 127/55 01/05/17 08:59 94 127/55 01/05/17 08:13 94 18 Room Air 01/05/17 08:00 97.3 94 19 127/55 96 Room Air 01/05/17 06:23 97.5 01/05/17 04:00 97.5 96 20 142/77 97 Room Air 01/05/17 00:00 98.1 94 18 137/75 97 Room Air 01/04/17 20:56 89 134/76 01/04/17 20:00 96 18 Room Air 01/04/17 20:00 97.6 92 18 131/69 99 Room Air 01/04/17 15:56 97.9 100 19 127/64 98 Room Air 01/04/17 15:29 98 20 100 Room Air 21 01/04/17 15:26 94 16 99 Room Air Intake and Output 01/05/17 01/06/17 19:00 07:00 Intake Total 480 ml Balance 480 ml Intake Oral 480 ml # Bowel Movements 1 Height (Feet): 5 Height (Inches): 7.00 Weight (Pounds): 250 General Appearance: no apparent distress, alert, overweight Neurologic: alert, oriented x 3, responsive, depressed affect Ivan Man M.D. Jan 05, 2017 15:12
--- NOTE | 2017-01-05 15:54 | General Progress Note ---
Assessment/Plan Status: stable Assessment/Plan 1. Alcoholic encephalopathy. 2. Alcoholic withdrawal. 3. Chronic obstructive pulmonary disease exacerbation. 4. Hyponatremia. 5. Hyperkalemia. 6. Anxiety/depression. 7. Homelesslessness 8. Anemia-Iron Deficiency 9. Gastrointestinal and deep vein thrombosis prophylaxis. Plan: Psych ID nephro Notes are reviewed. Discharge planning in progress Patient is competent to make decisions for placement. Agreed for SNIF placement. pending placement Subjective ROS Limited/Unobtainable: No Constitutional: Reports: no symptoms HEENT: Reports: no symptoms Cardiovascular: Reports: no symptoms Respiratory: Reports: no symptoms Allergies: Coded Allergies: No Known Allergies (Unverified , 12/10/15) Objective Last 24 Hour Vital Signs Date Time Temp Pulse Resp B/P (MAP) Pulse Ox O2 Delivery O2 Flow Rate FiO2 01/05/17 12:00 97.8 94 19 114/67 94 Room Air 01/05/17 09:01 94 127/55 01/05/17 08:59 94 127/55 01/05/17 08:13 94 18 Room Air 01/05/17 08:00 97.3 94 19 127/55 96 Room Air 01/05/17 06:23 97.5 01/05/17 04:00 97.5 96 20 142/77 97 Room Air 01/05/17 00:00 98.1 94 18 137/75 97 Room Air 01/04/17 20:56 89 134/76 01/04/17 20:00 96 18 Room Air 01/04/17 20:00 97.6 92 18 131/69 99 Room Air 01/04/17 15:56 97.9 100 19 127/64 98 Room Air Intake and Output 01/05/17 01/06/17 19:00 07:00 Intake Total 480 ml Balance 480 ml Intake Oral 480 ml # Bowel Movements 1 Height (Feet): 5 Height (Inches): 7.00 Weight (Pounds): 250 General Appearance: no apparent distress EENT: PERRL/EOMI Neck: supple Cardiovascular: normal rate Respiratory/Chest: lungs clear Abdomen: soft Extremities: other - kyphosis, slow gate. Neurologic: acquisition editor II-XII grossly normal Sebastian Martinez MD Jan 05, 2017 15:53
[2017-01-08] MEDS ORDERED: CHLORDIAZEPOXID25 MG PO (07:58)
[2017-01-08] MEDS ORDERED: VITAMIN B-1100 MG ORAL (07:59)
[2017-01-08] MEDS ORDERED: FOLIC ACID1 MG ORAL (07:59)
--- NOTE | 2017-01-08 08:00 | Discharge Summary ---
Discharge Summary Hospital Course Date of Admission Dec 30, 2016 at 17:20 Date of Discharge Jan 05, 2017 at 16:26 Admitting Diagnosis copd exacerbation HPI Anu Rocha is a 71 year old female who was admitted on Dec 30, 2016 at 17:20 for Chronic Obstructive Pulmonary Disease Hospital Course dc summary #[id number] Discharge Medications New Medications: Folic Acid* (Folic Acid*) 1 Mg Tablet 1 MG ORAL DAILY, #30 TAB Thiamine Hcl* (Vitamin B-1*) 100 Mg Tablet 100 MG ORAL DAILY, #30 TAB 0 Refills Changed Medications: Chlordiazepoxide Hcl (Chlordiazepoxide Hcl) 25 Mg Capsule 25 MG PO THREE TIMES A DAY PRN, #20 CAP (Medication details modified) Continued Medications: Aspirin Ec* (Aspirin Ec*) 81 Mg Tablet.dr 81 MG ORAL DAILY, TAB Diltiazem Hcl* (Cardizem Cd*) 180 Mg Cap.er.24h 180 MG ORAL DAILY, CAP Do not open, chew or crush capsule; swallow whole Ferrous Sulfate* (Ferrous Sulfate*) 325 Mg Tablet 325 MG ORAL THREE TIMES A DAY, #90 TAB 0 Refills Fluoxetine Hcl* (Prozac*) 20 Mg Capsule 20 MG ORAL DAILY, CAP Hydrocodone Bit/Acetaminophen 5-325* ([place] 5-325 Tablet*) 1 Each Tablet 1 TAB ORAL Q4H PRN for For Pain, #7 TAB Pantoprazole* (Pantoprazole*) 40 Mg Tablet.dr 40 MG ORAL DAILY, TAB Prednisone* (Prednisone*) 10 Mg Tablet 10 MG ORAL DAILY, #10 TAB 0 Refills Theophylline (Theodur*) 100 Mg Tab.er.12h 100 MG ORAL EVERY 12 HOURS, #60 TAB Tiotropium [place]* (Spiriva*) 18 Mcg Cap.w.dev 1 PUFF INH DAILY, EA Discharge Condition Upon Discharge: stable Discharge Disposition Patient was discharged to SNF Discharge Diagnoses: Hiren (Jesus Manuel)Ashley NP Jan 08, 2017 08:00
--- NOTE | 2017-01-09 03:15 | Discharge Summary 2 SIG ---
DATE OF ADMISSION: 12/30/2016 DATE OF DISCHARGE: 01/05/2017 The patient admitted under Dr. Martinez. REASON FOR ADMISSION: This is a 71-year-old female, homeless with history of hypertension and COPD, presented to emergency room with shortness of breath for one week. In the emergency room, found that she had severe acute hyponatremia, sodium 118 and potassium 5.5. The patient also had clinical evidence of COPD exacerbation. The patient started on IV steroids and empiric antibiotic. Hyperkalemia corrected. Troponin negative. The patient with vital signs revealing tachypnea and hypoxia. Nebulizing treatment administered. The patient admitted for further management. ADMITTING DIAGNOSES: 1. Acute chronic obstructive pulmonary disease exacerbation. 2. Possible cellulitis of lower extremity. 3. Hypernatremia. 4. Hypokalemia. 5. Alcoholic encephalopathy. 6. Anxiety. 7. Depression. 8. Homeless. HOSPITAL COURSE: The patient admitted. The patient started on IV fluids. Nephrology, Pulmonary, and Infectious Disease consult along with psychiatrist consult were requested. Supplemental oxygen provided as needed to keep saturation above 92%. Pulmonary toilet provided. The patient was on IV steroids, which were subsequently changed to oral and tapered. The patient was on empiric antibiotics status post treatment. Antitussives provided as needed. Infectious Disease specialist closely followed. Chest x-ray revealed COPD changes, but no acute cardiopulmonary pathology. No clinical evidence of cellulitis as per Infectious Disease. Recommended compression stockings to continue, however, the patient is noncompliant. The patient is status post transient leukocytosis on steroids on 01/01/2017, which resolved on 01/02/2017, no fever, no other signs and symptoms of sepsis. The patient with a history of alcohol abuse and history of delirium tremens. Librium provided on as needed basis. IV fluids with normal saline provided. Sodium improved to 133 per the Nephrology, etiology unclear likely depletional. Hyponatremia fairly corrected to 133. Potassium stable after treatment of hyperkalemia. Blood pressure was stable. Antihypertensive medication regimen adjusted. Norvasc was changed to Cardizem CD. The patient was continued on calcium-channel helena and beta-helena for blood pressure control. Renal parameters and electrolytes were closely monitored. DVT and GI prophylaxes provided. The patient started on folate and thiamine and was counseled on abstinence from alcohol. Right hip x-ray revealed no acute bony trauma. The patient reported that she had a prior fall and complained of the pain of the right hip, the reason the x-ray was done. Hemoglobin and hematocrit were monitored, status post Venofer x1. Remained in the baseline. Social service was involved in the care of this patient. Placement was found at [facility]. The patient was transferred to [facility] for further management. Psychiatrist seen and evaluated the patient, diagnosed her with anxiety and depression. FINAL DIAGNOSES: 1. Acute chronic obstructive pulmonary disease exacerbation. 2. Purulent bronchitis. 3. Alcoholic encephalopathy, possible alcohol withdrawal. 4. Chronic venous stasis of bilateral lower extremity. 5. Acute hyponatremia, likely depletional, resolved. 6. Hyperkalemia, resolved. 7. Hypertension. 8. Anemia of chronic disease. Of note, workup of anemia revealed anemia of chronic disease. 9. Anxiety and depression. 10. Homeless. Antipsychotic medications provided as per psychiatrist. The patient was stable for discharge to nursing home facility. DISCHARGE MEDICATIONS: See medication reconciliation list. Slowly taper oral steroids over a few days, status post antibiotic treatment. Continue folic acid and thiamine. DISCHARGE INSTRUCTIONS: The patient discharged to nursing home facility. FOLLOWUP: Follow up with medical doctor at the facility. Sebastian Martinez M.D. I have been assigned to dictate discharge summary on this account and I was not involved in the patient's management. [facility] N.P. DR: Feliz JOB#: [id number] CC:
== END 2017-01-05 16:26 | DRG 140 ==
LOC: EDBD 15:56 → EMR 16:36 → 2E 17:20 → EDBEDREQ 18:43 → 4E 01-01 14:37 → SDSOVERFLO 01-03 17:21 → 4E 01-03 17:25
DX: J44.1 Chronic obstructive pulmonary disease with (acute) exacerbation (principal); F10.231 Alcohol dependence with withdrawal delirium; G31.2 Degeneration of nervous system due to alcohol; E87.1 Hypo-osmolality and hyponatremia; E87.5 Hyperkalemia; L03.115 Cellulitis of right lower limb; F10.239 Alcohol dependence with withdrawal, unspecified; F41.8 Other specified anxiety disorders; Z59.0 Homelessness; D50.8 Other iron deficiency anemias; I10 Essential (primary) hypertension; I87.8 Other specified disorders of veins; J41.1 Mucopurulent chronic bronchitis; Z91.81 History of falling; M25.551 Pain in right hip; D63.8 Anemia in other chronic diseases classified elsewhere; E11.9 Type 2 diabetes mellitus without complications; G89.29 Other chronic pain; M25.562 Pain in left knee; M25.561 Pain in right knee; R26.81 Unsteadiness on feet; B35.1 Tinea unguium; D50.9 Iron deficiency anemia, unspecified; I89.0 Lymphedema, not elsewhere classified; D72.828 Other elevated white blood cell count; T38.0X5A Adverse effect of glucocorticoids and synthetic analogues, initial encounter; Z22.322 Carrier or suspected carrier of Methicillin resistant Staphylococcus aureus
CPT/HCPCS: 36415; 71010; 72170; 80048; 80053; 80061; 81003; 82270; 82378; 82550; 82553; 82607; 82728; 82746; 83036; 83540; 83550; 83615; 83880; 83930; 83935; 84484; 84550; 85007; 85025; 85044; 85060; 85379; 85610; 85651; 85730; 87081; 93005; 93306; 93971; 94640; 94664; 99285; J7620

== ENCOUNTER 2017-01-24 01:06 | Emergency (ER) | payer MEDICARE, OTHER ==
[~2017-01-24] VITALS: Ht 167.6 cm; Wt 90.7 kg
[~2017-01-24 01:06] MED LIST changes: +AZITHROMYC200 MG/5 M ORAL; +CARDIZEM CD180 MG ORAL; +CHLORDIAZEPOXID25 MG PO; +FERROUS SULFAT325 MG ORAL; +FOLIC ACID1 MG ORAL; +PANTOPRAZOLE SO40 MG ORAL; +PREDNISONE10 MG ORAL; +PROZAC20 MG ORAL; +VITAMIN B-1100 MG ORAL
[2017-01-24 01:16] VITALS: BP 139/80
--- NOTE | 2017-01-24 01:21 | Emergency Room Report ---
History of Present Illness General Chief Complaint: Multiple Trauma/Fall Source: Patient, Medical Record Present Illness HPI Is a 71-year-old female from a alf. She is unsteady her feet. She uses a wheelchair. She was turning out of will chair and slipped and fell on her buttock. This occur few hours ago. Complaining of right buttock and right hip pain. Able to get up and bear weight. No other trauma. Pain is 6/10. No head injury. Allergies: Coded Allergies: No Known Allergies (Unverified , 12/10/15) Patient History Past Medical History: see triage record, old chart reviewed Past Surgical History: other Pertinent Family History: none Social History: Denies: smoking Last Menstrual Period: None Now: No Immunizations: other Reviewed Nursing Documentation: PMH: Agreed, PSxH: Agreed Nursing Documentation-PMH Hx Hypertension: Yes - hypo-osmolality and hyponatremia Hx Asthma: Yes Hx COPD: Yes - unspecified chronic bronchitis Hx Diabetes: Yes - type 2 DM Hx Cancer: No Hx Seizures: Yes Review of Systems Eye: Denies: eye pain, blurred vision ENT: Denies: ear pain, nose congestion, throat swelling Respiratory: Denies: cough, shortness of breath Cardiovascular: Denies: chest pain, palpitations Gastrointestinal: Denies: abdominal pain, diarrhea, nausea, vomiting Musculoskeletal: Denies: back pain, joint pain Skin: Denies: rash Neurological: Denies: headache, numbness Endocrine: Denies: increased thirst, increased urine Hematologic/Lymphatic: Denies: easy bruising All Other Systems: negative except mentioned in HPI Physical Exam Vital Signs Date Time Temp Pulse Resp B/P (MAP) Pulse Ox O2 Delivery O2 Flow Rate FiO2 01/24/17 00:53 98.2 84 20 138/82 98 Room Air vitals normal Sp02 EP Interpretation: reviewed, normal General Appearance: well appearing, no apparent distress, alert Head: normocephalic, atraumatic Eyes: bilateral eye PERRL, bilateral eye EOMI ENT: hearing grossly normal, normal pharynx Neck: full range of motion, supple, no meningismus Respiratory: chest non-tender, lungs clear, normal breath sounds Cardiovascular #1: regular rate, rhythm, no murmur Gastrointestinal: normal bowel sounds, non tender, no mass, no organomegaly, no bruit, non-distended Musculoskeletal: back normal, normal range of motion, other - no deformity or tenderness to the right lateral hip. Psychiatric: mood/affect normal Skin: warm/dry Medical Decision Making Diagnostic Impression: Primary Impression: Contusion of right hip and thigh Qualified Codes: S70.01XA - Contusion of right hip, initial encounter; S70.11XA - Contusion of right thigh, initial encounter ER Course Patient with a fall and contusion. No fracture or dislocation. We'll discharge home. CT/MRI/US Diagnostic Results CT/MRI/US Diagnostic Results : Imaging Test Ordered: CT pelvis Impression read by radiologist. Negative. Last Vital Signs Date Time Temp Pulse Resp B/P (MAP) Pulse Ox O2 Delivery O2 Flow Rate FiO2 01/24/17 01:16 98.2 87 29 139/80 92 01/24/17 00:53 Room Air Status: improved Disposition: XFER SNF Condition: Stable Additional Instructions: followup with your Dr. in 7 days. Return if worse. GERRY HERNANDEZ M.D. Jan 24, 2017 01:21
[2017-01-24] MEDS ORDERED: Albuterol ud Inhalation HHN ONE (03:00)
[2017-01-24 03:20] VITALS: BP 138/76
--- NOTE | 2017-01-24 09:20 | Diagnostic Imaging Report ---
Indication: TRAUMA, status post fall Technique: Noncontrast spiral acquisitions obtained through the pelvis. Multiplanar reconstructions generated. Total dose length product 476 mGycm. CTDIvol(s) 15 mGy. Dose reduction achieved using automated exposure control Comparison: Right hip and pelvic radiographs of 01/03/2017 Findings: There is unusual alignment abnormality of the pubic symphysis, which appears to be chronic. No acute hip or pelvic fracture demonstrated. The sacrum is intact. There are degenerative changes of both hips, with considerable proliferative changes of the acetabula. Is evidence of soft tissue contusion of the right hip and proximal thigh. There is also abnormal soft tissue in the right inferior buttock region. This area measures approximately 6.6 x 2.8 cm. There is some skin thickening lateral to this area. The pelvic viscera are remarkable for the presence of colonic diverticulosis. There is a small ventral hernia which contains only fat. Impression: No acute bony trauma Areas of contusion in the right hip bilateral buttock region. 6.6 x 2.8 cm soft tissue abnormality in the right inferior buttock, most likely represents area of contusion or hematoma, given stated clinical history. Abscess and seroma also a possibility, given the relatively low attenuation. Extensive degenerative changes of the hips and lumbar spine Chronic appearing alignment abnormality of the pubic symphysis Incidental findings of diverticulosis, small fat-containing midline ventral hernia This agrees with the preliminary interpretation provided overnight by [facility]. The CT scanner at [facility] is accredited by the [employer] and the scans are performed using protocols designed to limit radiation exposure to as low as reasonably achievable to attain images of sufficient resolution adequate for diagnostic evaluation.
== END 2017-01-24 05:32 ==
LOC: EDBD 01:06 → EMR 01:18
DX: S70.01XA Contusion of right hip, initial encounter (principal); S70.11XA Contusion of right thigh, initial encounter; W01.0XXA Fall on same level from slipping, tripping and stumbling without subsequent striking against object, initial encounter; Y92.129 Unspecified place in nursing home as the place of occurrence of the external cause; E11.9 Type 2 diabetes mellitus without complications; J44.9 Chronic obstructive pulmonary disease, unspecified
CPT/HCPCS: 72192; 94640; 94664; 99284

== ENCOUNTER 2018-02-03 15:36 | Inpatient (IN) | payer MEDICARE, OTHER ==
[2018-02-03] VITALS (14 sets, daily range): BP systolic 118–150; BP diastolic 61–109
[~2018-02-03] VITALS: Ht 167.6 cm; Wt 99.0 kg
[2018-02-03] MEDS ORDERED: MILK OF MA400 MG/51 ORAL (15:45)
[2018-02-03] MEDS ORDERED: DULCOLAX10 MG RC (15:45)
[2018-02-03] MEDS ORDERED: TYLENOL EXTRA500 MG ORAL (15:45)
[2018-02-03] MEDS ORDERED: SPIRIVA18 MCG INH (15:45)
[2018-02-03] MEDS ORDERED: Ipratropium 0.02% Inh Soln 2.5ml UD HHN ONE (15:45)
[2018-02-03] MEDS ORDERED: DOCUSATE SODIU100 MG ORAL (15:45)
[2018-02-03] MEDS ORDERED: Albuterol ud Inhalation HHN ONE (15:45)
[2018-02-03] MEDS ORDERED: BENADRYL25 MG ORAL (15:45)
--- NOTE | 2018-02-03 15:50 | Emergency Room Report ---
History of Present Illness General Chief Complaint: Dyspnea/Respdistress Source: Patient, EMS Present Illness HPI The patient is brought in by EMS. They were called for altered level of consciousness. She usually ambulates and is conversant. Chest decreased mentation today. This is worsened over the last hour. They found her with an oxygen saturation of 81%. They started her on nonrebreather mask and this raised the oxygen up to 97%. The patient was somewhat more responsive and stated that she has no pain. Daughters state she was not feeling well yesterday and had some problem with her breathing. The patient states she is short of breath and denies any pain. She feels the problem is in her chest. She states she's never been intubated in the past. The patient has a history of COPD, alcohol abuse, hyponatremia, Post pacemaker placement, diabetes and hypertension. Patient last admitted December 2016. Discharge diagnoses: 1. Acute chronic obstructive pulmonary disease exacerbation. 2. Purulent bronchitis. 3. Alcoholic encephalopathy, possible alcohol withdrawal. 4. Chronic venous stasis of bilateral lower extremity. 5. Acute hyponatremia, likely depletional, resolved. 6. Hyperkalemia, resolved. 7. Hypertension. 8. Anemia of chronic disease. 9. Anxiety and depression. 10. Homeless. Allergies: Coded Allergies: No Known Allergies (Unverified , 12/10/15) Patient History Limited by: medical condition Past Medical History: see triage record, old chart reviewed Past Surgical History: pacemaker, other - Right breast mass removal Social History: Reports: alcohol use - Prior; Denies: smoking [facility] Nursing Documentation: PMH: Agreed; PSxH: Agreed Nursing Documentation-PM Past Medical History: No History, Except For Hx Hypertension: Yes - hypo-osmolality and hyponatremia Hx Asthma: Yes Hx COPD: Yes - unspecified chronic bronchitis Hx Diabetes: Yes - type 2 DM Hx Cancer: No Hx Seizures: Yes Review of Systems All Other Systems: limited Physical Exam Vital Signs Date Time Temp Pulse Resp B/P (MAP) Pulse Ox O2 Delivery O2 Flow Rate FiO2 02/03/18 15:33 97.8 94 18 138/83 98 Non-Rebreather 10.0 97.9 Sp02 EP Interpretation: reviewed, abnormal - interpreted as low by me General Appearance: lethargic, obese Head: normocephalic, atraumatic Eyes: bilateral eye normal inspection, bilateral eye PERRL ENT: moist mucus membranes, other - lip ulcers Respiratory: decreased breath sounds, other - tachypnea and decreased tidal volume Cardiovascular #1: regular rate, rhythm Cardiovascular #2: 2+ radial (L) Gastrointestinal: non tender, soft, overweight Musculoskeletal: back normal Neurologic: sensory intact, motor weakness - generalized Psychiatric: other - depressed mentation Skin: cyanosis, other - diffuse hyperpigmented lesions, minimally nodular, more on legs Procedures Critical Care Time Critical Care Time Total Critical Care Time: 90 min bedside evaluation and treatment excludes procedures (EKG, intubation). Reason for critical care: respiratory failure, pneumonia, sedation, titration of oxygen Possible complications: hypotension, hypertension, UT, shock, arrhythmias, metabolic acidosis, end organ damage, respiratory failure. Interventions: CPAP, intubation, antibiotics, discussion with family and admitting MD Course: Patient presented with hypoxia and ALOC. BIPAP begun immediately with breathing treatments. Increased lethargy. ABG obtained and patient intubated. Improved mentation. Sedated. Propofol titrated under my direct supervision. FIO2 titrated down under my direct supervision. Antibiotics begun for RLL pneumonia. Discussed with family and admitting MD. Improved but critical. Consultations: nursing staff, EMS, family, RT, admitting MD. Performed by: Dr. Patricia Tolerated well condition = critical Intubation Intubation : Consent: Emergent Intubation Method: orotracheal Tube Size (cm): 7.5 - 24 at lips Breath Sounds after Intubation: equal Intubation Complications: no complications Post Intubation Xray: Yes Progress/Xray Impression: ET slightly high. Advanced to 26 cm Attempts: One Patient Tolerated: Well Complications: None Medical Decision Making Diagnostic Impression: Primary Impression: Respiratory failure Qualified Codes: J96.02 - Acute respiratory failure with hypercapnia Additional Impressions: Right lower lobe pneumonia Qualified Codes: J18.1 - Lobar pneumonia, unspecified organism Renal insufficiency Elevated troponin ER Course Patient presents with altered level of consciousness, hypoxia and tachypnea. Differential includes acute myocardial infarction, COPD exacerbation with CO2 retention, pneumonia, sepsis, elevated ammonia with encephalopathy, electrolyte abnormalities and in particular hyponatremia amongst others. Evaluation will be with EKG, chest x-ray and labs including blood cultures, lactate and ammonia. The patient will be started on BiPAP and depending on how her mentation is might need to have a blood gas to confirm improvement. Breathing treatments will be started. There is no obvious wheezing however she has decreased breath sounds and a history of COPD. EKG NST, 94, no injury. CXR RLL infiltrate. Leukocytosis. Slightly elevated ammonia. Lactate normal. Troponin min elevated (no STEMI). K slightly elevated. Antibiotics ordered. On BIPAP, patient still lethargic. ABG ordered and patient may need intubation. Less responsive. Intubated. ABG with resp failure. Awake after intubation and improved. Sedation ordered. Propofol titrated for adequate sedation. VS stable. Titrating oxygen down from 50%. Still sat 100% at 28%. Titrate down 25%. Discussed with daughters (2 in [facility] and one in [place]). Admit ICU Dr. Byrd. He came to ED and examined the patient here. Laboratory Tests Test 02/03/18 15:15 02/03/18 15:30 02/03/18 16:21 White Blood Count 12.7 K/UL (4.8-10.8) H Red Blood Count 5.03 M/UL (4.20-5.40) Hemoglobin 15.2 G/DL (12.0-16.0) Hematocrit 48.9 % (37.0-47.0) H Mean Corpuscular Volume 97 FL (80-99) Mean Corpuscular Hemoglobin 30.2 PG (27.0-31.0) Mean Corpuscular Hemoglobin Concent 31.1 G/DL (32.0-36.0) L Red Cell Distribution Width 14.1 % (11.6-14.8) Platelet Count 402 K/UL (150-450) Mean Platelet Volume 6.0 FL (6.5-10.1) L Neutrophils (%) (Auto) 72.2 % (45.0-75.0) Lymphocytes (%) (Auto) 14.6 % (20.0-45.0) L Monocytes (%) (Auto) 9.5 % (1.0-10.0) Eosinophils (%) (Auto) 1.0 % (0.0-3.0) Basophils (%) (Auto) 2.7 % (0.0-2.0) H Prothrombin Time 10.7 SEC (9.30-11.50) Prothrombin Time INR 1.0 (0.9-1.1) PTT 28 SEC (23-33) Sodium Level 136 MMOL/L (136-145) Potassium Level 5.4 MMOL/L (3.5-5.1) H Chloride Level 96 MMOL/L (98-107) L Carbon Dioxide Level 36 MMOL/L (21-32) H Anion Gap 4 mmol/L (5-15) L Blood Urea Nitrogen 52 mg/dL (7-18) H Creatinine 1.7 MG/DL (0.55-1.30) H Estimate Glomerular Filtration Rate mL/min (>60) Glucose Level 122 MG/DL (74-106) H Lactic Acid Level 0.70 mmol/L (0.4-2.0) Calcium Level 9.3 MG/DL (8.5-10.1) Total Bilirubin 0.2 MG/DL (0.2-1.0) Aspartate Amino Transferase (AST) 27 U/L (15-37) Alanine Aminotransferase (ALT) 43 U/L (12-78) Alkaline Phosphatase 106 U/L (46-116) Ammonia 45 umol/L (11-32) H Total Creatine Kinase 44 U/L (26-308) Troponin I 0.072 ng/mL (0.000-0.056) Pro-B-Type Natriuretic Peptide 4374 pg/mL (0-125) H Total Protein 7.8 G/DL (6.4-8.2) Albumin 3.3 G/DL (3.4-5.0) L Globulin 4.5 g/dL Albumin/Globulin Ratio 0.7 (1.0-2.7) L Triglycerides Level 110 MG/DL (30-150) Lipase 762 U/L (73-393) H Serum Alcohol < 3 mg/dL Urine Color Belén Urine Appearance Clear Urine pH 5 (4.5-8.0) Urine Specific Neville 1.030 (1.005-1.035) Urine Protein 3+ (NEGATIVE) H Urine Glucose (UA) Negative (NEGATIVE) Urine Ketones Negative (NEGATIVE) Urine Blood Negative (NEGATIVE) Urine Nitrite Negative (NEGATIVE) Urine Bilirubin 1+ (NEGATIVE) H Urine Ictotest Negative (NEGATIVE) Urine Urobilinogen 1 MG/DL (0.0-1.0) H Urine Leukocyte Esterase 1+ (NEGATIVE) H Urine RBC 0-2 /HPF (0 - 2) Urine WBC 2-4 /HPF (0 - 2) Urine Squamous Epithelial Cells Few /LPF (NONE/OCC) Urine Amorphous Sediment Many /LPF (NONE) H Urine Bacteria Few /HPF (NONE) Urine Opiates Screen Negative (NEGATIVE) Urine Barbiturates Screen Negative (NEGATIVE) Phencyclidine (PCP) Screen Negative (NEGATIVE) Urine Amphetamines Screen Negative (NEGATIVE) Urine Benzodiazepines Screen Positive (NEGATIVE) H Urine Cocaine Screen Negative (NEGATIVE) Urine Marijuana (THC) Screen Negative (NEGATIVE) Arterial Blood pH 7.168 (7.350-7.450) Arterial Blood Partial Pressure CO2 117.2 mmHg (35.0-45.0) *H Arterial Blood Partial Pressure O2 64.1 mmHg (75.0-100.0) L Arterial Blood HCO3 41.6 mmol/L (22.0-26.0) *H Arterial Blood Oxygen Saturation 85.6 % (95-100) *L Arterial Blood Base Excess 7.7 (-2-2) H Tarun Test Positive EKG Diagnostic Results Rate: normal Rhythm: NSR ST Segments: no acute changes Rhythm Strip Diag. Results EP Interpretation: yes Rhythm: NSR, no PVC's, no ectopy Chest X-Ray Diagnostic Results Chest X-Ray Diagnostic Results #1: Chest X-Ray Ordered: Yes # of Views/Limited/Complete: 1 View Indication: Shortness of Breath Interpretation: no pneumothorax, other - RLL infiltrate and possible effusion, inc cor Impression: Other Electronically Signed by: Electronically signed by Ashvin Patricia MD Chest X-Ray Diagnostic Results #2: Chest X-Ray Ordered: Yes # of Views/Limited/Complete: 1 View Indication: Other EP Interpretation: Yes Interpretation: no pneumothorax, other - ET high, RLL infiltrate with possible effusion Impression: Other Electronically Signed by: Ashvin Patricia MD Last Vital Signs Date Time Temp Pulse Resp B/P (MAP) Pulse Ox O2 Delivery O2 Flow Rate FiO2 02/03/18 23:00 91 18 150/65 (93) 99 02/03/18 20:53 25 02/03/18 20:00 Mechanical Ventilator 02/03/18 19:30 97.9 97.9 02/03/18 19:00 15.0 Status: improved Disposition: ADMITTED INPATIENT Condition: Critical Ashvin Patricia M.D. Feb 03, 2018 15:50
[2018-02-03 15:58] LABS: BASOPHILS % (AUTO) 2.7 % (0.0-2.0); HEMATOCRIT 48.9 % (37.0-47.0); HEMOGLOBIN 15.2 G/DL (12.0-16.0); LYMPHOCYTES % (AUTO) 14.6 % (20.0-45.0); MEAN CORPUSCULAR VOLUME 97 FL (80-99); MONOCYTES % (AUTO) 9.5 % (1.0-10.0); NEUTROPHILS % (AUTO) 72.2 % (45.0-75.0); PLATELET COUNT 402 K/UL (150-450); RED BLOOD COUNT 5.03 M/UL (4.20-5.40); RED CELL DISTRIBUTION WIDTH 14.1 % (11.6-14.8); WHITE BLOOD COUNT 12.7 K/UL (4.8-10.8)
[2018-02-03 16:19] LABS: AMMONIA 45 umol/L (11-32); ANION GAP 4 mmol/L (5-15); BLOOD UREA NITROGEN 52 mg/dL (7-18); CALCIUM 9.3 MG/DL (8.5-10.1); CARBON DIOXIDE 36 MMOL/L (21-32); CHLORIDE 96 MMOL/L (98-107); CREATININE 1.7 MG/DL (0.55-1.30); POTASSIUM 5.4 MMOL/L (3.5-5.1); SODIUM 136 MMOL/L (136-145)
[2018-02-03 16:28] LABS: ALANINE AMINOTRANSFERASE 43 U/L (12-78); ALBUMIN 3.3 G/DL (3.4-5.0); ALBUMIN/GLOBULIN RATIO 0.7 (1.0-2.7); ALKALINE PHOSPHATASE 106 U/L (46-116); ASPARTATE AMINO TRANSFERASE 27 U/L (15-37); BILIRUBIN,TOTAL 0.2 MG/DL (0.2-1.0); CREATINE KINASE 44 U/L (26-308)
[2018-02-03] MEDS ORDERED: Etomidate 40mg/20ml Inj IV ONE (16:30)
[2018-02-03] MEDS ORDERED: Vancomycin 1.5gm/D5W 250ml 250 ML IVPB ONE (16:30)
[2018-02-03] MEDS ORDERED: Propofol 200mg/20ml IV ONE (16:30)
[2018-02-03] MEDS ORDERED: Piperacillin/Tazobactam 3.375 GM in NS 110 ML IVPB ONE (16:30)
[2018-02-03] MEDS ORDERED: EMLA 5gm tube TOPIC ONE (16:43)
[2018-02-03] MEDS ORDERED: Lidocaine 2% 20mg/ml/EPI 0.01mg/ml 20ml ONE (16:44)
[2018-02-03 16:45] LABS: APPEARANCE,URINE CLEAR; BILIRUBIN, URINE 1+ (NEGATIVE); GLUCOSE, URINE (UA) NEGATIVE (NEGATIVE); KETONES,URINE NEGATIVE (NEGATIVE); LEUKOCYTE ESTERASE ,URINE 1+ (NEGATIVE); NITRITE,URINE NEGATIVE (NEGATIVE); PH,URINE 5 (4.5-8.0); PROTEIN,URINE 3+ (NEGATIVE); UROBILINOGEN,URINE 1 MG/DL (0.0-1.0)
[2018-02-03] MEDS ORDERED: Lidocaine 2% 100mg/5ml Carp ONE (16:46)
[2018-02-03 16:49] LABS: COLOR,URINE AMBER
[2018-02-03] MEDS ORDERED: Lidocaine 2% 100mg/5ml Carp INJ ONE (17:00)
[2018-02-03] MEDS ORDERED: LIBRIUM25 MG ORAL (18:39)
[2018-02-03] MEDS: Albuterol/Ipratropium 3ml neb HHN SCH (19:00)
[2018-02-03] MEDS: D5NS 1,000 ML IV SCH (20:01)
[2018-02-03] MEDS: Heparin 5000 units/ml inj SUBQ SCH (20:33)
[2018-02-03] MEDS: LORazepam Inj 2mg/ml 1ml IV PRN (20:50)
[2018-02-03] MEDS ORDERED: Theophylline ER 100mg ORAL SCH (21:00)
[2018-02-03] MEDS ORDERED: Vancomycin 1.5gm/D5W 250ml 250 ML IVPB SCH (21:30)
[2018-02-03] MEDS: Solu-MEDROL 125mg Inj IVP SCH (21:32)
[2018-02-04] VITALS (32 sets, daily range): BP systolic 103–178; BP diastolic 45–132
[2018-02-04] MEDS: Albuterol/Ipratropium 3ml neb HHN SCH ×7 (00:19→23:07)
[2018-02-04] MEDS: Piperacillin/Tazobactam 3.375 GM in NS 110 ML IVPB SCH ×3 (00:45→18:46)
[2018-02-04] MEDS: LORazepam Inj 2mg/ml 1ml IV PRN ×2 (01:08→04:34)
[2018-02-04] MEDS: Solu-MEDROL 125mg Inj IVP SCH ×3 (05:33→21:33)
[2018-02-04 06:24] LABS: HEMATOCRIT 51.6 % (37.0-47.0); MEAN CORPUSCULAR VOLUME 90 FL (80-99); PLATELET COUNT 296 K/UL (150-450); RED BLOOD COUNT 5.71 M/UL (4.20-5.40); RED CELL DISTRIBUTION WIDTH 13.4 % (11.6-14.8)
[2018-02-04 06:38] LABS: ALANINE AMINOTRANSFERASE 38 U/L (12-78); ANION GAP 10 mmol/L (5-15); ASPARTATE AMINO TRANSFERASE 25 U/L (15-37); BILIRUBIN,TOTAL 0.7 MG/DL (0.2-1.0); BLOOD UREA NITROGEN 29 mg/dL (7-18); CALCIUM 9.4 MG/DL (8.5-10.1); CARBON DIOXIDE 30 MMOL/L (21-32); CHLORIDE 100 MMOL/L (98-107); CREATININE 1.3 MG/DL (0.55-1.30); POTASSIUM 3.5 MMOL/L (3.5-5.1); SODIUM 140 MMOL/L (136-145)
[2018-02-04 06:39] LABS: ALBUMIN 2.9 G/DL (3.4-5.0); ALBUMIN/GLOBULIN RATIO 0.7 (1.0-2.7); ALKALINE PHOSPHATASE 95 U/L (46-116)
--- NOTE | 2018-02-04 07:36 | General Progress Note ---
Assessment/Plan Problem List: (1) COPD exacerbation ICD Codes: J44.1 - Chronic obstructive pulmonary disease with (acute) exacerbation SNOMED: 703287486 (2) HTN (hypertension) ICD Codes: I10 - Essential (primary) hypertension SNOMED: 23862135 (3) Hypoxia ICD Codes: R09.02 - Hypoxemia SNOMED: 957947175 (4) Elevated troponin ICD Codes: R74.8 - Abnormal levels of other serum enzymes SNOMED: 805253468, 612925724, 351966275 (5) Renal insufficiency ICD Codes: N28.9 - Disorder of kidney and ureter, unspecified SNOMED: 777912894, 057272741 (6) Respiratory failure ICD Codes: J96.90 - Respiratory failure, unspecified, unspecified whether with hypoxia or hypercapnia SNOMED: 670757335 Qualifiers: Qualified Codes: J96.02 - Acute respiratory failure with hypercapnia (7) Right lower lobe pneumonia ICD Codes: J18.1 - Lobar pneumonia, unspecified organism SNOMED: 279620958 Qualifiers: Qualified Codes: J18.1 - Lobar pneumonia, unspecified organism Status: stable Assessment/Plan iv steroids iv abx vent support resp rx follow up cultures. monitor cxr dvt/stress ulcer prophylaxis sedation Subjective ROS Limited/Unobtainable: No Constitutional: Reports: malaise, weakness HEENT: Reports: no symptoms Cardiovascular: Reports: no symptoms Respiratory: Reports: shortness of breath Gastrointestinal/Abdominal: Reports: no symptoms Genitourinary: Reports: no symptoms Neurologic/Psychiatric: Reports: no symptoms Endocrine: Reports: no symptoms Hematologic/Lymphatic: Reports: no symptoms Allergies: Coded Allergies: No Known Allergies (Unverified , 12/10/15) All Systems: reviewed and negative except above Subjective no events. on the vent. sedated. on iv abx and iv steroids. Objective Last 24 Hour Vital Signs Date Time Temp Pulse Resp B/P (MAP) Pulse Ox O2 Delivery O2 Flow Rate FiO2 02/04/18 07:24 106 18 98 Mechanical Ventilator 25 02/04/18 07:24 106 18 25 02/04/18 07:11 105 18 97 Mechanical Ventilator 25 02/04/18 07:00 107 15 149/50 (83) 96 02/04/18 06:00 102 19 143/63 (89) 97 10/8/18 05:21 102 18 25 02/04/18 05:00 105 18 135/64 (87) 97 02/04/18 04:00 Mechanical Ventilator 02/04/18 04:00 25 02/04/18 04:00 98.4 104 18 150/61 (90) 97 98.4 02/04/18 03:12 97 18 25 02/04/18 03:12 98 18 99 Mechanical Ventilator 02/04/18 03:08 96 02/04/18 03:00 94 18 97 Mechanical Ventilator 25 02/04/18 03:00 95 18 144/57 (86) 99 02/04/18 02:00 96 18 178/88 (118) 97 02/04/18 01:00 97 18 169/86 (113) 96 02/04/18 00:30 92 18 25 02/04/18 00:21 96 18 99 Mechanical Ventilator 02/04/18 00:00 92 18 95 Mechanical Ventilator 25 02/04/18 00:00 25 02/04/18 00:00 Mechanical Ventilator 02/04/18 00:00 98.1 90 18 169/74 (105) 97 98.1 02/03/18 23:30 91 18 25 02/03/18 23:12 89 02/03/18 23:00 91 18 150/65 (93) 99 02/03/18 22:00 90 18 144/67 (92) 100 02/03/18 21:00 88 18 144/73 (96) 100 02/03/18 20:53 89 18 25 02/03/18 20:30 88 18 143/71 (95) 100 02/03/18 20:12 50 02/03/18 20:00 Mechanical Ventilator 02/03/18 20:00 90 22 137/61 (86) 96 02/03/18 19:30 97.9 95 20 133/101 (112) 94 97.9 02/03/18 19:30 95 02/03/18 19:30 90 18 25 02/03/18 19:30 25 02/03/18 19:25 Mechanical Ventilator 02/03/18 19:00 97.9 89 17 133/74 100 Mechanical Ventilator 15.0 25 97.9 02/03/18 18:51 17 133/74 Mechanical Ventilator 25 02/03/18 18:51 97.9 89 17 133/74 100 Mechanical Ventilator 25 97.9 02/03/18 18:36 97.9 91 17 134/68 100 Mechanical Ventilator 25 97.9 02/03/18 18:36 17 134/68 Mechanical Ventilator 25 02/03/18 18:21 97.9 88 19 125/91 100 Mechanical Ventilator 28 97.9 02/03/18 18:21 19 125/91 Mechanical Ventilator 28 02/03/18 18:06 23 150/86 Mechanical Ventilator 28 02/03/18 18:06 97.9 88 23 150/86 100 Mechanical Ventilator 28 97.9 02/03/18 17:55 87 20 28 02/03/18 17:51 15 144/109 Mechanical Ventilator 28 02/03/18 17:51 97.9 88 15 144/109 100 Mechanical Ventilator 28 97.9 02/03/18 17:36 16 145/85 Mechanical Ventilator 15.0 30 02/03/18 17:36 97.9 87 16 145/85 100 Mechanical Ventilator 15.0 30 97.9 02/03/18 17:23 30 02/03/18 17:23 83 16 100 Mechanical Ventilator 30 02/03/18 17:21 97.9 82 21 141/73 100 Mechanical Ventilator 15.0 40 97.9 02/03/18 17:21 21 141/73 Mechanical Ventilator 15.0 40 02/03/18 17:05 85 40 02/03/18 17:03 86 16 100 Mechanical Ventilator 40 02/03/18 16:45 86 16 50 02/03/18 16:40 50 02/03/18 16:30 21 141/73 Mechanical Ventilator 15.0 40 02/03/18 16:29 97.9 87 23 118/72 94 Bi-pap 40 97.9 02/03/18 16:07 95 23 93 Facial 40 02/03/18 16:00 40 02/03/18 15:45 92 37 Non-Rebreather 15.0 100 02/03/18 15:45 92 37 Bi-pap 100 02/03/18 15:33 97.8 94 18 138/83 98 Non-Rebreather 10.0 97.9 Intake and Output 02/03/18 02/04/18 19:00 07:00 Intake Total 110 ml 1365.0 ml Output Total 300 ml 3450 ml Balance -190 ml -2085.0 ml Intake Oral 0 ml IV Total 110 ml 1185.0 ml Other 180 ml Output Urine Total 300 ml 3450 ml Laboratory Tests 02/03/18 15:15: White Blood Count 12.7H, Red Blood Count 5.03, Hemoglobin 15.2, Hematocrit 48.9H , Mean Corpuscular Volume 97, Mean Corpuscular Hemoglobin 30.2, Mean Corpuscular Hemoglobin Concent 31.1L, Red Cell Distribution Width 14.1, Platelet Count 402, Mean Platelet Volume 6.0L, Neutrophils (%) (Auto) 72.2, Lymphocytes (%) (Auto) 14.6L, Monocytes (%) (Auto) 9.5, Eosinophils (%) (Auto) 1.0, Basophils (%) (Auto) 2.7H, Prothrombin Time 10.7, Prothromb Time International Ratio 1.0, Activated Partial Thromboplast Time 28, Sodium Level 136, Potassium Level 5.4H, Chloride Level 96L, Carbon Dioxide Level 36H, Anion Gap 4L, Blood Urea Nitrogen 52H, Creatinine 1.7H, Estimat Glomerular Filtration Rate , Glucose Level 122H, Lactic Acid Level 0.70, Calcium Level 9.3, Total Bilirubin 0.2, Aspartate Amino Transf (AST/SGOT) 27, Alanine Aminotransferase ( ALT/SGPT) 43, Alkaline Phosphatase 106, Ammonia 45H, Total Creatine Kinase 44, Troponin I 0.072H, Pro-B-Type Natriuretic Peptide 4374H, Total Protein 7.8, Albumin 3.3L, Globulin 4.5, Albumin/Globulin Ratio 0.7L, Triglycerides Level 110 , Lipase 762H, Serum Alcohol < 3 02/03/18 15:30: Urine Color Belén, Urine Appearance Clear, Urine pH 5, Urine Specific Gordon 1.030, Urine Protein 3+H, Urine Glucose (UA) Negative, Urine Ketones Negative, Urine Blood Negative, Urine Nitrite Negative, Urine Bilirubin 1+H, Urine Ictotest Negative, Urine Urobilinogen 1H, Urine Leukocyte Esterase 1+H, Urine RBC 0-2, Urine WBC 2-4, Urine Squamous Epithelial Cells Few, Urine Amorphous Sediment ManyH, Urine Bacteria Few, Urine Opiates Screen Negative, Urine Barbiturates Screen Negative, Phencyclidine (PCP) Screen Negative, Urine Amphetamines Screen Negative, Urine Benzodiazepines Screen PositiveH, Urine Cocaine Screen Negative, Urine Marijuana (THC) Screen Negative 02/03/18 16:21: Arterial Blood pH 7.168*L, Arterial Blood Partial Pressure CO2 117.2*H, Arterial Blood Partial Pressure O2 64.1L, Arterial Blood HCO3 41.6*H, Arterial Blood Oxygen Saturation 85.6*L, Arterial Blood Base Excess 7.7H, Tarun Test Positive 02/04/18 05:44: White Blood Count 9.0, Red Blood Count 5.71H, Hemoglobin 16.0, Hematocrit 51.6H , Mean Corpuscular Volume 90, Mean Corpuscular Hemoglobin 27.9, Mean Corpuscular Hemoglobin Concent 30.9L, Red Cell Distribution Width 13.4, Platelet Count 296, Mean Platelet Volume 6.1L, Neutrophils (%) (Auto) , Lymphocytes (%) (Auto) , Monocytes (%) (Auto) , Eosinophils (%) (Auto) , Basophils (%) (Auto) , Sodium Level 140, Potassium Level 3.5, Chloride Level 100 , Carbon Dioxide Level 30, Anion Gap 10, Blood Urea Nitrogen 29H, Creatinine 1.3 , Estimat Glomerular Filtration Rate , Glucose Level 178H, Calcium Level 9.4, Total Bilirubin 0.7, Aspartate Amino Transf (AST/SGOT) 25, Alanine Aminotransferase (ALT/SGPT) 38, Alkaline Phosphatase 95, Troponin I [Pending], Total Protein 7.2, Albumin 2.9L, Globulin 4.3, Albumin/Globulin Ratio 0.7L, Neutrophils % (Manual) [Pending], Lymphocytes % (Manual) [Pending], Platelet Estimate [Pending], Platelet Morphology [Pending] Height (Feet): 5 Height (Inches): 6.00 Weight (Pounds): 203 General Appearance: WD/WN, lethargic Neck: supple Cardiovascular: regular rhythm Respiratory/Chest: rhonchi - bilaterally, expiratory wheezing Abdomen: normal bowel sounds, non tender, soft, no organomegaly Edema: no edema noted Arm (L), no edema noted Arm (R), no edema noted Leg (L), no edema noted Leg (R), no edema noted Pedal (L), no edema noted Pedal (R), no edema noted Generalized Neurologic: alert Manan Byrd MD Feb 04, 2018 07:36
[2018-02-04] MEDS ORDERED: LORazepam Inj 2mg/ml 1ml IV PRN (08:45)
[2018-02-04] MEDS ORDERED: dilTIAZem HCl CD 180mg cap ORAL SCH (09:00)
--- NOTE | 2018-02-04 09:00 | History and Physical Report ---
DATE OF ADMISSION: 02/03/2018 CHIEF COMPLAINT: Respiratory failure. HISTORY OF PRESENT ILLNESS: The patient is a 72-year-old female who has history of COPD, alcohol dependence, hypertension, who presented from a shelter facility with complaints of shortness of breath. On evaluation in the emergency room, the patient was noted to be in severe respiratory distress. She was initially placed on BiPAP. Because of worsening respiratory acidosis, the patient eventually required intubation and mechanical ventilatory support. Initial labs included x-ray that showed bilateral pneumonia. Laboratories were significant for white count of 12,000, and elevated troponin and level. The patient has been pancultured. She has received a dose of intravenous steroids and is now admitted for further evaluation and care. The patient is unable to provide any history as she is currently intubated and sedated. PAST MEDICAL HISTORY: As above. PAST SURGICAL HISTORY: Unknown. CURRENT MEDICATIONS: Reconciled and reviewed. ALLERGIES: None. FAMILY HISTORY: Unknown. SOCIAL HISTORY: The patient has a history of COPD and was a prior smoker. She has a history of alcohol abuse. There is no known history of drugs. REVIEW OF SYSTEMS: From the patient is unobtainable as she is currently intubated. PHYSICAL EXAMINATION: VITAL SIGNS: Temperature 97.9 degrees, pulse 91, respirations 17, and blood pressure 134/68. GENERAL: The patient is a chronically ill-appearing female, currently orally intubated and sedated. NECK: Supple. No jugular venous distention. HEART: Regular rate and rhythm. LUNGS: Clear anteriorly. ABDOMEN: Soft, nontender, and nondistended. EXTREMITIES: No clubbing, cyanosis, or edema. LABORATORY AND DIAGNOSTIC DATA: White count 13, hemoglobin 15, hematocrit 48, and platelet count of 402,000. ABG showed pH of 7.16, pCO2 117, pO2 64, bicarbonate of 41, and O2 saturation 85%. Coagulation studies normal. Sodium 136, potassium 5.4, chloride 96, bicarb 36, BUN 52 and creatinine 1.7. UA is clear. Toxicology screen is only positive for benzodiazepines. X-ray showed bilateral infiltrates. ASSESSMENT: This is an elderly female with complaints of shortness of breath and respiratory failure secondary to chronic obstructive pulmonary disease exacerbation and pneumonia. 1. Chronic obstructive pulmonary disease exacerbation. 2. Pneumonia. 3. Respiratory failure. 4. Elevated troponin, rule out acute myocardial infarction. 5. Hypertension. 6. History of alcohol abuse. PLAN: 1. Ventilatory support. 2. Intravenous steroids. 3. Respiratory treatments around the clock. 4. Empiric antibiotics to cover pneumonia and continue the patient's aspirin and outpatient cardiac regimen. 5. We will monitor serial enzymes. 6. Check a venous duplex and an echo. 7. Cardiology, pulmonary, and infectious disease consultations will be obtained. Manan Byrd M.D. DR: Diana JOB#: [id number] CC:
[2018-02-04] MEDS: Aspirin EC 81mg tab ORAL SCH (09:02)
[2018-02-04] MEDS: Docusate 100mg cap ORAL SCH (09:02)
[2018-02-04] MEDS: Milk of Magnesia 30ml Ud ORAL SCH (09:03)
[2018-02-04] MEDS: chlordiazePOXIDE 25mg Cap ORAL SCH ×3 (09:03→18:47)
[2018-02-04] MEDS: D5NS 1,000 ML IV SCH ×2 (09:14→21:35)
[2018-02-04] MEDS ORDERED: Sodium Bicarbonate 50ml Carp IV SCH (09:15)
[2018-02-04] MEDS: Heparin 5000 units/ml inj SUBQ SCH ×2 (09:17→21:38)
--- NOTE | 2018-02-04 10:38 | Diagnostic Imaging Report ---
Indication: Postintubation Comparison: 02/03/2018 A single view chest radiograph was obtained. Findings: Endotracheal tube is satisfactory in position about 5 cm above the mariano. Cardiomegaly and mild vascular congestion again demonstrated. IMPRESSION: Satisfactory position of the endotracheal tube. CHF
--- NOTE | 2018-02-04 10:41 | Diagnostic Imaging Report ---
Indication: Dyspnea Comparison: December 30, 2016 A single view chest radiograph was obtained. Findings: There is enlargement of the cardiac silhouette with pulmonary vascular redistribution and prominence, hazy vessel margins and the suggestion of interstitial edema consistent with CHF. Bones are unremarkable. IMPRESSION: Congestive heart failure
[2018-02-04] MEDS: Theophylline 80mg/15ml ORAL SCH ×2 (14:00→21:33)
[2018-02-04] MEDS: dilTIAZem HCl 60mg tab ORAL SCH ×2 (14:02→21:34)
--- NOTE | 2018-02-04 14:43 | Cardiology Report ---
APPROVED REPORT EKG Measurement Heart [id number] OH [id number] Normal sinus rhythm Normal ECG
[2018-02-04] MEDS ORDERED: Vancomycin 1250mg/D5W 250ml IVPB SCH (21:00)
--- NOTE | 2018-02-04 23:00 | Consultation ---
DATE OF CONSULTATION: 02/04/2018 PULMONARY CONSULTATION CONSULTING PHYSICIAN: Mk Billings M.D. REFERRING PHYSICIAN: Manan Byrd M.D. REASON FOR CONSULTATION: Respiratory failure, ventilator management. HISTORY: A 72-year-old female with history of COPD and hypertension, who presents from a alf. The patient was seen in the emergency room for severe respiratory distress, placed on BiPAP, but overall worsened and admitted, placed on a respirator. The patient is now on the ventilator and I was called to assist and evaluate further. The care was discussed with nursing staff and the hospital chart reviewed. The patient was started on IV antibiotics, IV steroids, and I was called to assess and recommend further. The patient is unable to give much in the way of history. The patient's laboratories and x-rays are reviewed and ICU charting reviewed as well. The patient appears to be acutely ill at present and critical. PAST MEDICAL HISTORY: Notable for COPD, ETOH, hypertension, cognitive dysfunction. MEDICATIONS: Reviewed. ALLERGIES: Reviewed. PAST SURGICAL HISTORY: Unknown. FAMILY HISTORY: Unknown. SOCIAL HISTORY: The patient has known history of smoking and history of alcohol abuse. The patient is a alf patient and debilitated. REVIEW OF SYSTEMS: Unobtainable due to the patient's present state. PHYSICAL EXAMINATION: GENERAL: An ill-appearing female, presently on ventilator, orally intubated. VITAL SIGNS: Saturations 98%, respiratory rate 18, heart rate 97 up to 106, temperature 98.4, blood pressure 149/50. NECK: Supple. No adenopathy. No jugular venous distention. LUNGS: Moderate breath sounds. Scattered rhonchi. No wheezes. CARDIAC: S1 and S2. Regular rhythm without murmurs, rubs, or gallops. ABDOMEN: Soft, nontender, nondistended. EXTREMITIES: No cyanosis, clubbing, or edema. NEUROLOGIC: Grossly nonfocal, withdrawn, and sedated. LABORATORY DATA: All reviewed. White count 9, hemoglobin 16, hematocrit 51, platelets of 296,000. Chemistries essentially negative. BUN 29, creatinine 1.3, albumin is 2.9. Blood gases, 7.16, 117, 64; repeat this morning not yet available. The chest x-ray last obtained was yesterday and shows cardiomegaly, pulmonary vascular congestion. IMPRESSION: Acute respiratory failure, COPD with acute exacerbation, profound respiratory acidosis and associated hypoxemia, cardiomegaly, possible mild pulmonary edema, possible COPD exacerbation, possible underlying pneumonia, protein-calorie malnutrition. RECOMMENDATION: Ventilator management. Repeat ABG. Empiric antibiotics. Sedation as needed. Cardiac management. Hydration with caution. Nutritional support. DVT prophylaxis. Solu-Medrol and taper. Propofol drip as needed and close followup for further intervention and weaning once the patient improves. The patient is critically ill at present and requires close ICU observation and monitoring. Close discussion with nursing staff and RT has been undertaken. Mk Billings M.D. DR: Bassem JOB#: [id number] CC:
[2018-02-05] VITALS (38 sets, daily range): BP systolic 93–129; BP diastolic 45–70
[2018-02-05] MEDS: Piperacillin/Tazobactam 3.375 GM in NS 110 ML IVPB SCH ×3 (00:34→18:20)
[2018-02-05] MEDS: Albuterol/Ipratropium 3ml neb HHN SCH ×6 (03:20→22:38)
[2018-02-05] MEDS: dilTIAZem HCl 60mg tab ORAL SCH ×3 (05:45→21:33)
[2018-02-05] MEDS: Theophylline 80mg/15ml ORAL SCH ×3 (05:45→21:33)
[2018-02-05] MEDS: Solu-MEDROL 125mg Inj IVP SCH ×3 (05:45→21:31)
--- NOTE | 2018-02-05 06:00 | Consultation ---
DATE OF CONSULTATION: 02/03/2018 CARDIOLOGY CONSULT CONSULTING PHYSICIAN: Ashvin Wu M.D. REQUESTING PHYSICIAN: Manan Byrd M.D. REASON FOR CONSULTATION: Elevated troponin level and possible acute myocardial infarction. HISTORY OF PRESENT ILLNESS: This 72-year-old female was brought into the emergency room by paramedics because of altered mentation. The patient has been now worse. She has been increasingly lethargic this morning and especially the hour prior to her transfer. Family member summoned paramedics who found her to be hypoxic. She was placed on a non-rebreather mask and transported to this emergency room. She has had some problems with her breathing for the past day or two with congestion and cough. She does have a known history of COPD and alcohol abuse. In the emergency room, a diagnostic workup was undertaken and following intubation and initiation of mechanical based ventilation as BiPAP was inadequate. Elevated troponin level has prompted this consultation. PAST MEDICAL HISTORY: COPD, status post right breast mass removal, and chronic venous insufficiency. ALLERGIES: None known. MEDICATIONS: Prior to admission, not known. FAMILY HISTORY: Noncontributory. REVIEW OF SYSTEMS: Not obtainable. SOCIAL HISTORY: Notable for alcoholism and smoking. PHYSICAL EXAMINATION: GENERAL: Orally intubated, mechanically ventilated, and poorly responsive. NECK: Jugular venous pressure is slightly elevated. LUNGS: Coarse breath sounds and rhonchi. CARDIAC: Regular rhythm. Rapid rate. Normal S1 and S2. ABDOMEN: Soft. EXTREMITIES: There is no edema. Some stasis derm changes are noted. LABORATORY AND DIAGNOSTIC STUDIES: EKG sinus rhythm with no acute abnormalities. ABG initial 7.16, 117, and 64. White count 13 and hemoglobin 15. Chest x-ray with bilateral infiltrates. Troponin 0.47. IMPRESSION: 1. Acute respiratory failure, acute respiratory acidosis, and chronic obstructive pulmonary disease exacerbation. 2. History of alcoholism. 3. Healthcare-acquired pneumonia. 4. Acute myocardial ischemia and possible non-ST elevation infarction. 5. History of hypertension. PLAN: 1. Ventilator support. 2. Intravenous steroids. 3. Inhaled bronchodilators. 4. Anti-platelet therapy with aspirin. 5. Empiric antibiotics. 6. Venous duplex scan to evaluate for source of pulmonary emboli. 7. DVT prophylaxis. 8. Avoid beta-helena in view of active bronchospasm. 9. Withdrawal precautions in view of history of alcohol dependence. Ashvin Wu M.D. DR: CASEY JOB#: [id number] CC:
--- NOTE | 2018-02-05 06:12 | General Progress Note ---
Assessment/Plan Problem List: (1) COPD exacerbation ICD Codes: J44.1 - Chronic obstructive pulmonary disease with (acute) exacerbation SNOMED: 414024226 (2) HTN (hypertension) ICD Codes: I10 - Essential (primary) hypertension SNOMED: 27828327 (3) Hypoxia ICD Codes: R09.02 - Hypoxemia SNOMED: 570361357 (4) Elevated troponin ICD Codes: R74.8 - Abnormal levels of other serum enzymes SNOMED: 723154030, 922242210, 542936799 (5) Renal insufficiency ICD Codes: N28.9 - Disorder of kidney and ureter, unspecified SNOMED: 483240200, 493665084 (6) Respiratory failure ICD Codes: J96.90 - Respiratory failure, unspecified, unspecified whether with hypoxia or hypercapnia SNOMED: 551830519 Qualifiers: Qualified Codes: J96.02 - Acute respiratory failure with hypercapnia (7) Right lower lobe pneumonia ICD Codes: J18.1 - Lobar pneumonia, unspecified organism SNOMED: 108455057 Qualifiers: Qualified Codes: J18.1 - Lobar pneumonia, unspecified organism Status: stable Assessment/Plan iv steroids- wean iv abx prn diuresis vent support- wean per pulm resp rx follow up cultures. monitor cxr dvt/stress ulcer prophylaxis sedation Subjective ROS Limited/Unobtainable: No Constitutional: Reports: malaise, weakness HEENT: Reports: no symptoms Cardiovascular: Reports: no symptoms Respiratory: Reports: no symptoms Gastrointestinal/Abdominal: Reports: difficulty swallowing Genitourinary: Reports: no symptoms Neurologic/Psychiatric: Reports: no symptoms Endocrine: Reports: no symptoms Allergies: Coded Allergies: No Known Allergies (Unverified , 12/10/15) All Systems: reviewed and negative except above Subjective no events. on the vent. sedated on propofol. on iv abx and iv steroids. no fever or chills. s/p iv lasix x1 Objective Last 24 Hour Vital Signs Date Time Temp Pulse Resp B/P (MAP) Pulse Ox O2 Delivery O2 Flow Rate FiO2 02/05/18 05:45 85 106/52 02/05/18 05:23 83 14 25 02/05/18 03:34 88 12 100 Mechanical Ventilator 02/05/18 03:22 82 13 98 Mechanical Ventilator 02/05/18 03:20 84 13 25 02/05/18 03:12 14 100/48 Mechanical Ventilator 96 02/05/18 03:00 81 14 100/48 (65) 97 02/05/18 02:00 85 13 100/49 (66) 94 02/05/18 01:30 86 13 103/50 (67) 97 02/05/18 01:22 87 14 25 02/05/18 01:00 88 14 100/47 (64) 95 02/05/18 01:00 14 100/47 Mechanical Ventilator 95 02/05/18 00:30 87 14 100/53 (69) 93 02/05/18 00:00 97.4 91 18 115/61 (79) 97 97.4 02/05/18 00:00 18 115/61 Mechanical Ventilator 97 02/05/18 00:00 Mechanical Ventilator 02/04/18 23:50 88 02/04/18 23:37 88 12 98 Mechanical Ventilator 25 02/04/18 23:30 88 14 110/61 (77) 98 02/04/18 23:08 85 18 97 Mechanical Ventilator 25 02/04/18 23:07 88 17 25 02/04/18 23:00 87 18 115/62 (79) 98 02/04/18 23:00 18 115/62 Mechanical Ventilator 98 02/04/18 22:30 87 18 117/67 (84) 98 02/04/18 22:00 86 18 129/70 (89) 98 02/04/18 22:00 18 129/70 Mechanical Ventilator 98 02/04/18 21:41 19 120/64 Mechanical Ventilator 98 02/04/18 21:34 89 120/64 02/04/18 21:30 92 18 120/64 (82) 98 02/04/18 21:00 94 18 113/62 (79) 97 02/04/18 21:00 18 113/62 Mechanical Ventilator 97 02/04/18 20:33 97 17 25 02/04/18 20:30 96 18 123/62 (82) 98 02/04/18 20:30 25 02/04/18 20:00 25 02/04/18 20:00 Mechanical Ventilator 02/04/18 20:00 98.8 101 18 124/57 (79) 98 98.8 02/04/18 20:00 18 124/54 Mechanical Ventilator 98 02/04/18 19:59 100 02/04/18 19:50 100 18 98 Mechanical Ventilator 25 02/04/18 19:45 98 20 132/60 (84) 95 02/04/18 19:45 20 135/60 Mechanical Ventilator 100 02/04/18 19:42 98 18 98 Mechanical Ventilator 25 02/04/18 19:30 96 18 135/75 (95) 92 02/04/18 19:30 18 135/75 Mechanical Ventilator 92 02/04/18 19:25 98 18 25 02/04/18 19:15 18 137/68 Mechanical Ventilator 96 02/04/18 19:00 20 139/106 Mechanical Ventilator 98 02/04/18 19:00 98 20 139/105 (116) 98 02/04/18 18:00 96 18 118/50 (72) 94 02/04/18 18:00 18 118/50 Mechanical Ventilator 25 02/04/18 17:00 18 110/58 Mechanical Ventilator 25 02/04/18 17:00 98 18 115/53 (73) 99 02/04/18 16:49 99 18 25 02/04/18 16:00 25 02/04/18 16:00 99 18 106/46 (66) 99 02/04/18 16:00 108 02/04/18 16:00 18 106/46 Mechanical Ventilator 25 02/04/18 16:00 Mechanical Ventilator 02/04/18 15:29 100 18 25 02/04/18 15:28 100 18 99 Mechanical Ventilator 25 02/04/18 15:18 98 18 97 Mechanical Ventilator 25 02/04/18 15:00 99 18 103/45 (64) 97 02/04/18 15:00 18 103/45 Mechanical Ventilator 25 02/04/18 14:02 97 120/52 02/04/18 14:00 98.4 97 18 120/52 (74) 99 98.4 02/04/18 14:00 22 128/66 Mechanical Ventilator 25 02/04/18 13:46 20 105/53 Mechanical Ventilator 100 02/04/18 13:31 24 121/53 Mechanical Ventilator 25 02/04/18 13:16 33 122/59 Mechanical Ventilator 25 02/04/18 13:01 18 148/132 Mechanical Ventilator 25 02/04/18 12:46 21 130/96 Mechanical Ventilator 25 02/04/18 12:45 103 18 148/132 (137) 99 02/04/18 12:41 103 18 25 02/04/18 12:31 21 111/46 Endotracheal Tube 02/04/18 12:30 108 21 111/46 (67) 87 02/04/18 12:16 19 120/70 Mechanical Ventilator 02/04/18 12:15 109 19 120/70 (87) 82 02/04/18 12:01 18 128/63 Endotracheal Tube 02/04/18 12:00 25 02/04/18 12:00 107 18 106/56 (73) 98 02/04/18 12:00 106 02/04/18 12:00 Mechanical Ventilator 02/04/18 11:00 104 20 128/63 (84) 98 02/04/18 10:48 99 18 99 Mechanical Ventilator 25 02/04/18 10:46 98 18 99 Mechanical Ventilator 25 02/04/18 10:45 97 18 25 02/04/18 10:00 98 18 126/54 (78) 99 02/04/18 09:00 99 18 128/63 (84) 98 02/04/18 08:45 103 18 25 02/04/18 08:00 98.6 103 18 133/56 (81) 97 98.6 02/04/18 08:00 109 02/04/18 08:00 Mechanical Ventilator 02/04/18 08:00 25 02/04/18 07:24 106 18 98 Mechanical Ventilator 25 02/04/18 07:24 106 18 25 02/04/18 07:11 105 18 97 Mechanical Ventilator 25 02/04/18 07:00 107 15 149/50 (83) 96 Intake and Output 02/04/18 02/05/18 19:00 07:00 Intake Total 994.816 ml 1292.018 ml Output Total 1825 ml 1680 ml Balance -830.184 ml -387.982 ml Intake Oral 0 ml 0 ml IV Total 874.816 ml 1152.018 ml Other 120 ml 140 ml Output Urine Total 1825 ml 1680 ml Laboratory Tests 02/04/18 19:20: Arterial Blood pH 7.630*H, Arterial Blood Partial Pressure CO2 25.3L, Arterial Blood Partial Pressure O2 87.8, Arterial Blood HCO3 26.1H, Arterial Blood Oxygen Saturation 97.5, Arterial Blood Base Excess 6.4H, Tarun Test Positive 02/04/18 21:00: Troponin I 0.049 Height (Feet): 5 Height (Inches): 6.00 Weight (Pounds): 203 General Appearance: WD/WN, lethargic Neck: normal inspection Cardiovascular: regular rhythm Respiratory/Chest: normal breath sounds, no respiratory distress, no accessory muscle use Abdomen: normal bowel sounds, non tender, soft, no organomegaly Edema: trace edema Manan Byrd MD Feb 05, 2018 06:12
[2018-02-05 07:21] LABS: HEMATOCRIT 44.7 % (37.0-47.0); HEMOGLOBIN 14.7 G/DL (12.0-16.0); MEAN CORPUSCULAR VOLUME 91 FL (80-99); PLATELET COUNT 287 K/UL (150-450); RED BLOOD COUNT 4.92 M/UL (4.20-5.40); RED CELL DISTRIBUTION WIDTH 13.9 % (11.6-14.8); WHITE BLOOD COUNT 10.7 K/UL (4.8-10.8)
[2018-02-05 07:40] LABS: ALANINE AMINOTRANSFERASE 29 U/L (12-78); ALBUMIN 2.6 G/DL (3.4-5.0); ALBUMIN/GLOBULIN RATIO 0.7 (1.0-2.7); ALKALINE PHOSPHATASE 81 U/L (46-116); ANION GAP 10 mmol/L (5-15); ASPARTATE AMINO TRANSFERASE 14 U/L (15-37); BILIRUBIN,TOTAL 0.5 MG/DL (0.2-1.0); BLOOD UREA NITROGEN 15 mg/dL (7-18); CALCIUM 8.8 MG/DL (8.5-10.1); CARBON DIOXIDE 28 MMOL/L (21-32); CHLORIDE 107 MMOL/L (98-107); CREATININE 0.9 MG/DL (0.55-1.30); POTASSIUM 2.8 MMOL/L (3.5-5.1); SODIUM 144 MMOL/L (136-145)
[2018-02-05] MEDS: Milk of Magnesia 30ml Ud ORAL SCH (09:00)
[2018-02-05] MEDS: Aspirin EC 81mg tab ORAL SCH (09:22)
[2018-02-05] MEDS: Docusate 100mg cap ORAL SCH (09:22)
[2018-02-05] MEDS: chlordiazePOXIDE 25mg Cap ORAL SCH ×3 (09:22→18:20)
[2018-02-05] MEDS: Heparin 5000 units/ml inj SUBQ SCH ×2 (09:24→20:47)
[2018-02-05] MEDS: D5NS 1,000 ML IV SCH (11:00)
--- NOTE | 2018-02-05 13:31 | Progress Note ---
DATE: 02/04/2018 CARDIOLOGY PROGRESS NOTE SUBJECTIVE: The patient remains orally intubated. Mechanically ventilated. Monitored rhythm, sinus. Rare atrial ectopics and ventricular ectopics. PHYSICAL EXAMINATION: VITAL SIGNS: Blood pressure 149/50, pulse 107, respiratory rate 15, and afebrile. Thin trach secretions. LUNGS: Coarse breath sounds. Scattered rhonchi. Expiratory wheezes. HEART: Regular rhythm and rate. Normal S1 and S2. ABDOMEN: Soft. EXTREMITIES: Trace edema with stasis derm changes. LABORATORY DATA: White count 9 and hemoglobin 16. Troponin has decreased to 0.043 from a peak of 0.072. Pro-natriuretic peptide yesterday 4300. BUN 29 and creatinine 1.3. IMPRESSION: 1. Respiratory failure. 2. Acute respiratory acidosis. 3. Acute myocardial ischemia. 4. Acute diastolic congestive heart failure. 5. Moderate protein-calorie malnutrition. 6. Acute renal failure, recovering. 7. Hyperglycemia, likely due to steroids. PLAN: 1. No beta-helena. 2. Continue anti-platelet therapy. 3. Inhaled bronchodilators. 4. Diltiazem for suppression of atrial ectopy. 5. Trend natriuretic peptide assay. 6. Await echocardiogram. 7. DVT prophylaxis. Ashvin Wu M.D. DR: KADIE JOB#: [id number] CC:
--- NOTE | 2018-02-05 13:41 | Diagnostic Imaging Report ---
Indication: NG tube placement Comparison: None Single view of the abdomen obtained Findings: NG tube is a well situated within the stomach with both the proximal port and tip well below the diaphragm. IMPRESSION: Nasogastric tube satisfactory in position
--- NOTE | 2018-02-05 14:44 | Cardiology Report ---
APPROVED REPORT EXAM: Two-dimensional and M-mode echocardiogram with Doppler and color Doppler. INDICATION ACUTE MYOCARD INFARCTION M-Mode DIMENSIONS IVSd1.0 (0.7-1.1cm)Left Atrium (MM)4.5 (1.6-4.0cm) LVDd4.9 (3.5-5.6cm)Aortic Root4.0 (2.0-3.7cm) PWd1.2 (0.7-1.1cm)Aortic Cusp Exc.1.8 (1.5-2.0cm) IVSs1.3 cm LVDs3.5 (2.5-4.0cm) PWs2.2 cm Normal left ventricular chamber size, systolic function and wall motion as well visualized Left ventricular ejection fraction estimated to be 55-60%. Mild left ventricular hypertrophy by 2-D. No evidence of pericardial effusion. All other cardiac chamber sizes are within normal limits. Focal aortic valve sclerosis with adequate cusp excursion. Heavily Thickened mitral valve leaflets with normal excursion. Echogenic material noted on anterior mitral valve leaflet . Heavily Mitral annulus and aortic root calcification. Pulmonic valve not well visualized. Normal tricuspid valve structure. IVC dilated at size 2.6 without physiologic collapse, suggestive increase RA pressure . A color flow and spectral Doppler study was performed and revealed: No aortic insufficiency . Trace mitral regurgitation. Mitral diastolic velocities suggest reduced left ventricular relaxation c/w mild LV diastolic dysfunction (Grade I ). Mild tricuspid regurgitation. Tricuspid systolic velocities suggests peak right ventricular systolic pressure of 46 mmHg,consistent with mild pulmonary hypertension .
[2018-02-05] MEDS: Vancomycin 1250mg/D5W 250ml IVPB SCH (21:32)
--- NOTE | 2018-02-05 21:48 | Critical Care Progress Note ---
Assessment/Plan Assessment/Plan IMPRESSION: Acute respiratory failure, COPD with acute exacerbation, respiratory acidosis and associated hypoxemia, cardiomegaly, possible mild pulmonary edema, possible underlying pneumonia, protein-calorie malnutrition. PLAN respiratory care adjusted AC ABG noted continue same IV antibiotics IV steroids supportive care hope to wean in am medications/laboratory data/nursing notes/ICU care reviewed in detail note reviewed and edited care discussed with RN and RT ICU time spent 45 minutes Critical Care - Subjective Interval Events: on vent adjusted comfortable ROS Limited/Unobtainable: Yes Condition: critical EKG Rhythm: Sinus Rhythm I&O: Intake and Output 02/04/18 02/05/18 19:00 07:00 Intake Total 994.816 ml 1760.314 ml Output Total 1825 ml 2310 ml Balance -830.184 ml -549.686 ml Intake Oral 0 ml 0 ml IV Total 874.816 ml 1560.314 ml Other 120 ml 200 ml Output Urine Total 1825 ml 2310 ml Critical Care - Objective ET-Tube: 7.5 ET Position: 24 Last 24 Hour Vital Signs Date Time Temp Pulse Resp B/P (MAP) Pulse Ox O2 Delivery O2 Flow Rate FiO2 02/05/18 21:33 95 113/67 02/05/18 20:54 95 20 55 02/05/18 20:00 98 Venturi Mask 14.0 55 02/05/18 20:00 Mechanical Ventilator Venturi Mask 02/05/18 20:00 91 02/05/18 20:00 98.3 91 20 114/50 (71) 98 98.3 02/05/18 20:00 Venturi Mask 14.0 55 02/05/18 19:53 Venturi Mask 14.0 55 02/05/18 19:30 16 102/49 Mechanical Ventilator 25 02/05/18 19:20 83 18 98 Mechanical Ventilator 28 02/05/18 19:03 79 16 95 Mechanical Ventilator 28 02/05/18 19:00 16 121/58 Mechanical Ventilator 25 02/05/18 19:00 87 16 102/49 (66) 100 02/05/18 19:00 79 16 28 02/05/18 18:30 83 16 93/45 (61) 94 02/05/18 18:00 81 16 115/64 (81) 95 02/05/18 18:00 15 115/64 Mechanical Ventilator 25 02/05/18 17:30 87 16 116/66 (83) 95 02/05/18 17:00 16 105/50 Mechanical Ventilator 25 02/05/18 17:00 92 20 105/50 (68) 96 02/05/18 16:48 85 16 25 02/05/18 16:30 89 15 105/59 (74) 86 02/05/18 16:00 25 02/05/18 16:00 Mechanical Ventilator 02/05/18 16:00 97.9 81 12 115/54 (74) 100 97.9 02/05/18 16:00 16 105/59 Mechanical Ventilator 25 02/05/18 15:30 85 02/05/18 15:30 85 12 112/54 (73) 100 02/05/18 15:00 86 12 110/50 (70) 100 02/05/18 15:00 13 110/50 Mechanical Ventilator 25 02/05/18 14:36 86 12 100 Mechanical Ventilator 25 02/05/18 14:34 79 17 25 02/05/18 14:31 85 21 100 Mechanical Ventilator 25 02/05/18 14:30 81 17 127/70 (89) 100 02/05/18 14:11 81 129/65 02/05/18 14:00 81 16 129/65 (86) 100 02/05/18 14:00 16 129/65 Mechanical Ventilator 25 02/05/18 13:58 16 123/59 Mechanical Ventilator 25 02/05/18 13:30 81 15 123/59 (80) 100 02/05/18 13:07 80 12 25 02/05/18 13:00 82 12 122/67 (85) 100 02/05/18 13:00 15 122/67 Mechanical Ventilator 25 02/05/18 12:30 85 12 118/58 (78) 100 02/05/18 12:00 25 02/05/18 12:00 Mechanical Ventilator 02/05/18 12:00 98.2 89 12 99/47 (64) 100 98.2 02/05/18 11:30 85 12 106/55 (72) 100 02/05/18 11:26 82 02/05/18 11:16 81 12 100 Mechanical Ventilator 25 02/05/18 11:15 92 12 25 02/05/18 11:08 81 13 100 Mechanical Ventilator 25 02/05/18 11:00 83 13 113/58 (76) 100 02/05/18 11:00 12 113/58 Mechanical Ventilator 25 02/05/18 10:30 83 12 113/59 (77) 100 02/05/18 10:00 12 114/56 Mechanical Ventilator 40 02/05/18 10:00 20 110/58 Mechanical Ventilator 99 02/05/18 10:00 84 12 114/56 (75) 100 02/05/18 09:30 85 16 116/58 (77) 90 02/05/18 09:00 86 17 115/51 (72) 95 02/05/18 09:00 20 105/52 Mechanical Ventilator 98 02/05/18 08:44 86 17 25 02/05/18 08:33 86 02/05/18 08:30 89 17 108/54 (72) 96 02/05/18 08:21 17 105/50 Mechanical Ventilator 25 02/05/18 08:00 25 02/05/18 08:00 98.1 90 18 105/50 (68) 94 98.1 02/05/18 08:00 16 100/46 Mechanical Ventilator 25 02/05/18 08:00 Mechanical Ventilator 02/05/18 07:00 96 15 101/49 (66) 93 02/05/18 07:00 20 105/60 Mechanical Ventilator 02/05/18 06:46 88 17 95 Mechanical Ventilator 25 02/05/18 06:45 88 16 25 02/05/18 06:40 90 16 95 Mechanical Ventilator 25 02/05/18 06:00 16 106/52 Mechanical Ventilator 98 02/05/18 06:00 82 16 106/52 (70) 98 02/05/18 05:45 85 106/52 02/05/18 05:23 83 14 25 02/05/18 05:00 20 108/60 Mechanical Ventilator 100 02/05/18 05:00 84 13 98/50 (66) 98 02/05/18 04:00 98.8 85 16 102/46 (64) 97 98.8 02/05/18 04:00 Mechanical Ventilator 02/05/18 04:00 20 102/40 Mechanical Ventilator 100 02/05/18 04:00 25 02/05/18 03:34 88 12 100 Mechanical Ventilator 25 02/05/18 03:22 82 13 98 Mechanical Ventilator 25 02/05/18 03:20 84 13 25 02/05/18 03:12 14 100/48 Mechanical Ventilator 96 02/05/18 03:02 82 02/05/18 03:00 81 14 100/48 (65) 97 02/05/18 03:00 20 101/48 Mechanical Ventilator 02/05/18 02:00 85 13 100/49 (66) 94 02/05/18 02:00 20 100/47 Mechanical Ventilator 02/05/18 01:30 86 13 103/50 (67) 97 02/05/18 01:22 87 14 25 02/05/18 01:00 88 14 100/47 (64) 95 02/05/18 01:00 14 100/47 Mechanical Ventilator 95 02/05/18 00:30 87 14 100/53 (69) 93 02/05/18 00:00 97.4 91 18 115/61 (79) 97 97.4 02/05/18 00:00 18 115/61 Mechanical Ventilator 97 02/05/18 00:00 Mechanical Ventilator 02/04/18 23:50 88 02/04/18 23:37 88 12 98 Mechanical Ventilator 25 02/04/18 23:30 88 14 110/61 (77) 98 02/04/18 23:08 85 18 97 Mechanical Ventilator 25 02/04/18 23:07 88 17 25 02/04/18 23:00 87 18 115/62 (79) 98 02/04/18 23:00 18 115/62 Mechanical Ventilator 98 02/04/18 22:30 87 18 117/67 (84) 98 02/04/18 22:00 86 18 129/70 (89) 98 02/04/18 22:00 18 129/70 Mechanical Ventilator 98 Labs: Labs Test 02/03/18 15:15 02/03/18 15:30 02/03/18 16:21 02/04/18 05:44 White Blood Count 12.7 K/UL (4.8-10.8) 9.0 K/UL (4.8-10.8) Red Blood Count 5.03 M/UL (4.20-5.40) 5.71 M/UL (4.20-5.40) Hemoglobin 15.2 G/DL (12.0-16.0) 16.0 G/DL (12.0-16.0) Hematocrit 48.9 % (37.0-47.0) 51.6 % (37.0-47.0) Mean Corpuscular Volume 97 FL (80-99) 90 FL (80-99) Mean Corpuscular Hemoglobin 30.2 PG (27.0-31.0) 27.9 PG (27.0-31.0) Mean Corpuscular Hemoglobin Concent 31.1 G/DL (32.0-36.0) 30.9 G/DL (32.0-36.0) Red Cell Distribution Width 14.1 % (11.6-14.8) 13.4 % (11.6-14.8) Platelet Count 402 K/UL (150-450) 296 K/UL (150-450) Mean Platelet Volume 6.0 FL (6.5-10.1) 6.1 FL (6.5-10.1) Neutrophils (%) (Auto) 72.2 % (45.0-75.0) % (45.0-75.0) Lymphocytes (%) (Auto) 14.6 % (20.0-45.0) % (20.0-45.0) Monocytes (%) (Auto) 9.5 % (1.0-10.0) % (1.0-10.0) Eosinophils (%) (Auto) 1.0 % (0.0-3.0) % (0.0-3.0) Basophils (%) (Auto) 2.7 % (0.0-2.0) % (0.0-2.0) Prothrombin Time 10.7 SEC (9.30-11.50) Prothromb Time International Ratio 1.0 (0.9-1.1) Activated Partial Thromboplast Time 28 SEC (23-33) Sodium Level 136 MMOL/L (136-145) 140 MMOL/L (136-145) Potassium Level 5.4 MMOL/L (3.5-5.1) 3.5 MMOL/L (3.5-5.1) Chloride Level 96 MMOL/L (98-107) 100 MMOL/L (98-107) Carbon Dioxide Level 36 MMOL/L (21-32) 30 MMOL/L (21-32) Anion Gap 4 mmol/L (5-15) 10 mmol/L (5-15) Blood Urea Nitrogen 52 mg/dL (7-18) 29 mg/dL (7-18) Creatinine 1.7 MG/DL (0.55-1.30) 1.3 MG/DL (0.55-1.30) Estimat Glomerular Filtration Rate mL/min (>60) mL/min (>60) Glucose Level 122 MG/DL (74-106) 178 MG/DL (74-106) Lactic Acid Level 0.70 mmol/L (0.4-2.0) Calcium Level 9.3 MG/DL (8.5-10.1) 9.4 MG/DL (8.5-10.1) Total Bilirubin 0.2 MG/DL (0.2-1.0) 0.7 MG/DL (0.2-1.0) Aspartate Amino Transf (AST/SGOT) 27 U/L (15-37) 25 U/L (15-37) Alanine Aminotransferase (ALT/SGPT) 43 U/L (12-78) 38 U/L (12-78) Alkaline Phosphatase 106 U/L (46-116) 95 U/L (46-116) Ammonia 45 umol/L (11-32) Total Creatine Kinase 44 U/L (26-308) Troponin I 0.072 ng/mL (0.000-0.056) 0.043 ng/mL (0.000-0.056) Pro-B-Type Natriuretic Peptide 4374 pg/mL (0-125) Total Protein 7.8 G/DL (6.4-8.2) 7.2 G/DL (6.4-8.2) Albumin 3.3 G/DL (3.4-5.0) 2.9 G/DL (3.4-5.0) Globulin 4.5 g/dL 4.3 g/dL Albumin/Globulin Ratio 0.7 (1.0-2.7) 0.7 (1.0-2.7) Triglycerides Level 110 MG/DL (30-150) 78 MG/DL (30-150) Lipase 762 U/L (73-393) Serum Alcohol < 3 mg/dL Urine Color [place] Urine Appearance Clear Urine pH 5 (4.5-8.0) Urine Specific [place] 1.030 (1.005-1.035) Urine Protein 3+ (NEGATIVE) Urine Glucose (UA) Negative (NEGATIVE) Urine Ketones Negative (NEGATIVE) Urine Blood Negative (NEGATIVE) Urine Nitrite Negative (NEGATIVE) Urine Bilirubin 1+ (NEGATIVE) Urine Ictotest Negative (NEGATIVE) Urine Urobilinogen 1 MG/DL (0.0-1.0) Urine Leukocyte Esterase 1+ (NEGATIVE) Urine RBC 0-2 /HPF (0 - 2) Urine WBC 2-4 /HPF (0 - 2) Urine Squamous Epithelial Cells Few /LPF (NONE/OCC) Urine Amorphous Sediment Many /LPF (NONE) Urine Bacteria Few /HPF (NONE) Urine Opiates Screen Negative (NEGATIVE) Urine Barbiturates Screen Negative (NEGATIVE) Phencyclidine (PCP) Screen Negative (NEGATIVE) Urine Amphetamines Screen Negative (NEGATIVE) Urine Benzodiazepines Screen Positive (NEGATIVE) Urine Cocaine Screen Negative (NEGATIVE) Urine Marijuana (THC) Screen Negative (NEGATIVE) Arterial Blood pH 7.168 (7.350-7.450) Arterial Blood Partial Pressure CO2 117.2 mmHg (35.0-45.0) Arterial Blood Partial Pressure O2 64.1 mmHg (75.0-100.0) Arterial Blood HCO3 41.6 mmol/L (22.0-26.0) Arterial Blood Oxygen Saturation 85.6 % (95-100) Arterial Blood Base Excess 7.7 (-2-2) Tarun Test Positive Differential Total Cells Counted 100 Neutrophils % (Manual) 88 % (45-75) Lymphocytes % (Manual) 7 % (20-45) Monocytes % (Manual) 4 % (1-10) Eosinophils % (Manual) 1 % (0-3) Basophils % (Manual) 0 % (0-2) Band Neutrophils 0 % (0-8) Platelet Estimate Adequate Platelet Morphology Normal Red Blood Cell Morphology Normal Test 02/04/18 19:20 02/04/18 21:00 02/05/18 05:50 02/05/18 07:40 Arterial Blood pH 7.630 (7.350-7.450) 7.531 (7.350-7.450) Arterial Blood Partial Pressure CO2 25.3 mmHg (35.0-45.0) 33.6 mmHg (35.0-45.0) Arterial Blood Partial Pressure O2 87.8 mmHg (75.0-100.0) 79.1 mmHg (75.0-100.0) Arterial Blood HCO3 26.1 mmol/L (22.0-26.0) 27.5 mmol/L (22.0-26.0) Arterial Blood Oxygen Saturation 97.5 % (95-100) 95.9 % (95-100) Arterial Blood Base Excess 6.4 (-2-2) 5.1 (-2-2) Tarun Test Positive Positive Troponin I 0.049 ng/mL (0.000-0.056) 0.029 ng/mL (0.000-0.056) White Blood Count 10.7 K/UL (4.8-10.8) Red Blood Count 4.92 M/UL (4.20-5.40) Hemoglobin 14.7 G/DL (12.0-16.0) Hematocrit 44.7 % (37.0-47.0) Mean Corpuscular Volume 91 FL (80-99) Mean Corpuscular Hemoglobin 29.9 PG (27.0-31.0) Mean Corpuscular Hemoglobin Concent 32.9 G/DL (32.0-36.0) Red Cell Distribution Width 13.9 % (11.6-14.8) Platelet Count 287 K/UL (150-450) Mean Platelet Volume 6.9 FL (6.5-10.1) Neutrophils (%) (Auto) % (45.0-75.0) Lymphocytes (%) (Auto) % (20.0-45.0) Monocytes (%) (Auto) % (1.0-10.0) Eosinophils (%) (Auto) % (0.0-3.0) Basophils (%) (Auto) % (0.0-2.0) Differential Total Cells Counted 100 Neutrophils % (Manual) 94 % (45-75) Lymphocytes % (Manual) 4 % (20-45) Monocytes % (Manual) 2 % (1-10) Eosinophils % (Manual) 0 % (0-3) Basophils % (Manual) 0 % (0-2) Band Neutrophils 0 % (0-8) Platelet Estimate Adequate Platelet Morphology Normal Red Blood Cell Morphology Normal Sodium Level 144 MMOL/L (136-145) Potassium Level 2.8 MMOL/L (3.5-5.1) Chloride Level 107 MMOL/L (98-107) Carbon Dioxide Level 28 MMOL/L (21-32) Anion Gap 10 mmol/L (5-15) Blood Urea Nitrogen 15 mg/dL (7-18) Creatinine 0.9 MG/DL (0.55-1.30) Estimat Glomerular Filtration Rate mL/min (>60) Glucose Level 167 MG/DL (74-106) Calcium Level 8.8 MG/DL (8.5-10.1) Magnesium Level 1.8 MG/DL (1.8-2.4) Total Bilirubin 0.5 MG/DL (0.2-1.0) Aspartate Amino Transf (AST/SGOT) 14 U/L (15-37) Alanine Aminotransferase (ALT/SGPT) 29 U/L (12-78) Alkaline Phosphatase 81 U/L (46-116) Pro-B-Type Natriuretic Peptide 557 pg/mL (0-125) Total Protein 6.4 G/DL (6.4-8.2) Albumin 2.6 G/DL (3.4-5.0) Globulin 3.8 g/dL Albumin/Globulin Ratio 0.7 (1.0-2.7) Test 02/05/18 20:20 02/05/18 20:29 Vancomycin Level Trough 4.7 ug/mL (5.0-12.0) Arterial Blood pH 7.389 (7.350-7.450) Arterial Blood Partial Pressure CO2 45.2 mmHg (35.0-45.0) Arterial Blood Partial Pressure O2 100.5 mmHg (75.0-100.0) Arterial Blood HCO3 26.7 mmol/L (22.0-26.0) Arterial Blood Oxygen Saturation 97.2 % (95-100) Arterial Blood Base Excess 1.2 (-2-2) Tarun Test Positive Objective: GENERAL: An ill-appearing female, presently on ventilator, orally intubated. VITAL SIGNS: Saturations 98%, respiratory rate 18, heart rate 97 up to 106, temperature 98.4, blood pressure 149/50. NECK: Supple. No adenopathy. No jugular venous distention. LUNGS: Moderate breath sounds. Scattered rhonchi. No wheezes. CARDIAC: S1 and S2. Regular rhythm without murmurs, rubs, or gallops. ABDOMEN: Soft, nontender, nondistended. EXTREMITIES: No cyanosis, clubbing, or edema. NEUROLOGIC: Grossly nonfocal, withdrawn, and sedated. Micro: Microbiology Date/Time Source Procedure Growth Status 10/7/18 15:30 Blood Blood Culture - Preliminary NO GROWTH AFTER 24 HOURS Resulted 02/03/18 15:15 Blood Blood Culture - Preliminary NO GROWTH AFTER 24 HOURS Resulted Accucheck: 147 Mk Billings MD Feb 05, 2018 21:47
[2018-02-06] VITALS (14 sets, daily range): BP systolic 92–150; BP diastolic 41–78
[2018-02-06] MEDS: D5NS 1,000 ML IV SCH (00:25)
[2018-02-06] MEDS: Piperacillin/Tazobactam 3.375 GM in NS 110 ML IVPB SCH ×3 (01:11→17:15)
--- NOTE | 2018-02-06 01:30 | Progress Note ---
DATE: 02/05/2018 CARDIOLOGY PROGRESS NOTE SUBJECTIVE: The patient has self-extubated herself. She is on weaning doses of steroids, remains on IV antibiotics, and has been diuresed. She appears to be comfortable off the ventilator. No respiratory distress. Blood gases have been reviewed. OBJECTIVE: LUNGS: Coarse breath sounds. Good air movement. HEART: Regular rhythm and rate. Normal S1, S2 with a fourth heart sound. ABDOMEN: Soft. EXTREMITIES: Trace edema. LABORATORY DATA: ABG, pH 7.39, pCO2 45, pO2 100. White count 10.7, hemoglobin 14.7. Magnesium 1.8. Pro-natriuretic peptide 557 down from 4300. Echocardiogram reveals normal ejection fraction with diastolic dysfunction and mild pulmonary hypertension. IMPRESSION: 1. Respiratory failure, now status post extubation. 2. Mild pulmonary hypertension. 3. COPD exacerbation. 4. Acute myocardial ischemia. 5. Acute diastolic congestive heart failure. PLAN: 1. Respiratory hygiene. 2. Monitor acid-base parameters. 3. Steroid taper as tolerated. 4. Antimicrobials. 5. Negative fluid balance post extubation. Ashvin Wu M.D. DR: Katelin JOB#: [id number] CC:
[2018-02-06] MEDS: Albuterol/Ipratropium 3ml neb HHN SCH ×5 (02:43→23:19)
[2018-02-06 05:32] LABS: ALANINE AMINOTRANSFERASE 28 U/L (12-78); ALBUMIN 2.8 G/DL (3.4-5.0); ALBUMIN/GLOBULIN RATIO 0.7 (1.0-2.7); ALKALINE PHOSPHATASE 78 U/L (46-116); ANION GAP 6 mmol/L (5-15); ASPARTATE AMINO TRANSFERASE 12 U/L (15-37); BILIRUBIN,TOTAL 0.3 MG/DL (0.2-1.0); BLOOD UREA NITROGEN 13 mg/dL (7-18); CALCIUM 8.5 MG/DL (8.5-10.1); CARBON DIOXIDE 31 MMOL/L (21-32); CHLORIDE 108 MMOL/L (98-107); CREATININE 0.8 MG/DL (0.55-1.30); POTASSIUM 3.3 MMOL/L (3.5-5.1); SODIUM 145 MMOL/L (136-145)
[2018-02-06] MEDS: dilTIAZem HCl 60mg tab ORAL SCH ×3 (05:53→21:11)
[2018-02-06] MEDS: Solu-MEDROL 125mg Inj IVP SCH ×2 (05:53→20:35)
[2018-02-06] MEDS: Theophylline 80mg/15ml ORAL SCH ×3 (05:53→21:12)
--- NOTE | 2018-02-06 07:33 | General Progress Note ---
Assessment/Plan Problem List: (1) COPD exacerbation ICD Codes: J44.1 - Chronic obstructive pulmonary disease with (acute) exacerbation SNOMED: 344772294 (2) HTN (hypertension) ICD Codes: I10 - Essential (primary) hypertension SNOMED: 92476569 (3) Hypoxia ICD Codes: R09.02 - Hypoxemia SNOMED: 565408036 (4) Elevated troponin ICD Codes: R74.8 - Abnormal levels of other serum enzymes SNOMED: 316823517, 702243760, 768566467 (5) Renal insufficiency ICD Codes: N28.9 - Disorder of kidney and ureter, unspecified SNOMED: 217553878, 872414721 (6) Respiratory failure ICD Codes: J96.90 - Respiratory failure, unspecified, unspecified whether with hypoxia or hypercapnia SNOMED: 557562769 Qualifiers: Qualified Codes: J96.02 - Acute respiratory failure with hypercapnia (7) Right lower lobe pneumonia ICD Codes: J18.1 - Lobar pneumonia, unspecified organism SNOMED: 036170336 Qualifiers: Qualified Codes: J18.1 - Lobar pneumonia, unspecified organism Status: stable, progressing Assessment/Plan resp care suctionig resp rx dc ngt swallow eval puree diet wean steroids anxiolytics as needed iv abx transfer new dvt/stress ulcer prophylaxis Subjective ROS Limited/Unobtainable: No Constitutional: Reports: malaise, weakness HEENT: Reports: no symptoms Cardiovascular: Reports: no symptoms Respiratory: Reports: cough Gastrointestinal/Abdominal: Reports: no symptoms Genitourinary: Reports: no symptoms Neurologic/Psychiatric: Reports: no symptoms Endocrine: Reports: no symptoms Hematologic/Lymphatic: Reports: no symptoms Allergies: Coded Allergies: No Known Allergies (Unverified , 12/10/15) All Systems: reviewed and negative except above Subjective extubated. wants to eat. no cp/sob. mild congestion. Objective Last 24 Hour Vital Signs Date Time Temp Pulse Resp B/P (MAP) Pulse Ox O2 Delivery O2 Flow Rate FiO2 02/06/18 07:00 99 17 108/60 (76) 97 02/06/18 06:00 98 20 103/48 (66) 97 02/06/18 05:53 90 106/63 02/06/18 05:00 92 17 92/45 (61) 97 02/06/18 04:00 98.6 93 21 106/63 (77) 97 98.6 02/06/18 04:00 93 02/06/18 04:00 Mechanical Ventilator Venturi Mask 02/06/18 03:00 88 17 101/53 (69) 98 02/06/18 02:50 87 18 98 Venturi Mask 8.0 40 02/06/18 02:40 45 02/06/18 02:40 84 18 98 Venturi Mask 10.0 45 02/06/18 02:00 87 19 93/45 (61) 95 02/06/18 01:00 95 19 119/70 (86) 96 02/06/18 00:00 Mechanical Ventilator Venturi Mask 02/06/18 00:00 98.2 98 18 113/67 (82) 97 98.2 02/06/18 00:00 98 02/05/18 23:00 99 20 116/68 (84) 99 02/05/18 22:50 100 19 98 Venturi Mask 10.0 45 02/05/18 22:37 96 16 99 Venturi Mask 55 02/05/18 22:00 102 20 126/65 (85) 98 02/05/18 21:33 95 113/67 02/05/18 21:00 95 19 113/67 (82) 98 02/05/18 20:54 95 20 55 02/05/18 20:00 98 Venturi Mask 14.0 55 02/05/18 20:00 Mechanical Ventilator Venturi Mask 02/05/18 20:00 91 02/05/18 20:00 98.3 91 20 114/50 (71) 98 98.3 02/05/18 20:00 Venturi Mask 14.0 55 02/05/18 19:53 Venturi Mask 14.0 55 02/05/18 19:30 16 102/49 Mechanical Ventilator 25 02/05/18 19:30 89 18 120/61 (80) 99 02/05/18 19:20 83 18 98 Mechanical Ventilator 28 02/05/18 19:03 79 16 95 Mechanical Ventilator 28 02/05/18 19:00 16 121/58 Mechanical Ventilator 25 02/05/18 19:00 87 16 102/49 (66) 100 02/05/18 19:00 79 16 28 02/05/18 18:30 83 16 93/45 (61) 94 02/05/18 18:00 81 16 115/64 (81) 95 02/05/18 18:00 15 115/64 Mechanical Ventilator 25 02/05/18 17:30 87 16 116/66 (83) 95 02/05/18 17:00 16 105/50 Mechanical Ventilator 25 02/05/18 17:00 92 20 105/50 (68) 96 02/05/18 16:48 85 16 25 02/05/18 16:30 89 15 105/59 (74) 86 02/05/18 16:00 25 02/05/18 16:00 Mechanical Ventilator 02/05/18 16:00 97.9 81 12 115/54 (74) 100 97.9 02/05/18 16:00 16 105/59 Mechanical Ventilator 25 02/05/18 15:30 85 02/05/18 15:30 85 12 112/54 (73) 100 02/05/18 15:00 86 12 110/50 (70) 100 02/05/18 15:00 13 110/50 Mechanical Ventilator 25 02/05/18 14:36 86 12 100 Mechanical Ventilator 25 02/05/18 14:34 79 17 25 02/05/18 14:31 85 21 100 Mechanical Ventilator 25 02/05/18 14:30 81 17 127/70 (89) 100 02/05/18 14:11 81 129/65 02/05/18 14:00 81 16 129/65 (86) 100 02/05/18 14:00 16 129/65 Mechanical Ventilator 25 02/05/18 13:58 16 123/59 Mechanical Ventilator 25 02/05/18 13:30 81 15 123/59 (80) 100 02/05/18 13:07 80 12 25 02/05/18 13:00 82 12 122/67 (85) 100 02/05/18 13:00 15 122/67 Mechanical Ventilator 25 02/05/18 12:30 85 12 118/58 (78) 100 02/05/18 12:00 25 02/05/18 12:00 Mechanical Ventilator 02/05/18 12:00 98.2 89 12 99/47 (64) 100 98.2 02/05/18 11:30 85 12 106/55 (72) 100 02/05/18 11:26 82 02/05/18 11:16 81 12 100 Mechanical Ventilator 25 02/05/18 11:15 92 12 25 02/05/18 11:08 81 13 100 Mechanical Ventilator 25 02/05/18 11:00 83 13 113/58 (76) 100 02/05/18 11:00 12 113/58 Mechanical Ventilator 25 02/05/18 10:30 83 12 113/59 (77) 100 02/05/18 10:00 12 114/56 Mechanical Ventilator 40 02/05/18 10:00 20 110/58 Mechanical Ventilator 99 02/05/18 10:00 84 12 114/56 (75) 100 02/05/18 09:30 85 16 116/58 (77) 90 02/05/18 09:00 86 17 115/51 (72) 95 02/05/18 09:00 20 105/52 Mechanical Ventilator 98 02/05/18 08:44 86 17 25 02/05/18 08:33 86 02/05/18 08:30 89 17 108/54 (72) 96 02/05/18 08:21 17 105/50 Mechanical Ventilator 25 02/05/18 08:00 25 02/05/18 08:00 98.1 90 18 105/50 (68) 94 98.1 02/05/18 08:00 16 100/46 Mechanical Ventilator 25 02/05/18 08:00 Mechanical Ventilator Intake and Output 02/05/18 02/06/18 19:00 07:00 Intake Total 1442.314 ml 1790.0 ml Output Total 660 ml 540 ml Balance 782.314 ml 1250.0 ml Free Water 30 ml IV Total 1267.314 ml 1260.0 ml Tube Feeding 175 ml 500 ml Output Urine Total 660 ml 540 ml Laboratory Tests 02/05/18 07:40: Arterial Blood pH 7.531H, Arterial Blood Partial Pressure CO2 33.6L, Arterial Blood Partial Pressure O2 79.1, Arterial Blood HCO3 27.5H, Arterial Blood Oxygen Saturation 95.9, Arterial Blood Base Excess 5.1H, Tarun Test Positive 02/05/18 20:20: Vancomycin Level Trough 4.7L 02/05/18 20:29: Arterial Blood pH 7.389, Arterial Blood Partial Pressure CO2 45.2H, Arterial Blood Partial Pressure O2 100.5H, Arterial Blood HCO3 26.7H, Arterial Blood Oxygen Saturation 97.2, Arterial Blood Base Excess 1.2, Tarun Test Positive 02/06/18 05:00: Sodium Level 145, Potassium Level 3.3L, Chloride Level 108H, Carbon Dioxide Level 31, Anion Gap 6, Blood Urea Nitrogen 13, Creatinine 0.8, Estimat Glomerular Filtration Rate , Glucose Level 155H, Calcium Level 8.5, Total Bilirubin 0.3, Aspartate Amino Transf (AST/SGOT) 12L, Alanine Aminotransferase ( ALT/SGPT) 28, Alkaline Phosphatase 78, Total Protein 6.7, Albumin 2.8L, Globulin 3.9, Albumin/Globulin Ratio 0.7L Height (Feet): 5 Height (Inches): 6.00 Weight (Pounds): 204 General Appearance: WD/WN, alert Neck: supple Cardiovascular: normal rate, regular rhythm Respiratory/Chest: rhonchi - bilaterally Abdomen: normal bowel sounds, non tender, soft, no organomegaly Edema: trace edema Neurologic: surgery aid II-XII grossly normal, alert, oriented x 3, responsive Manan Byrd MD Feb 06, 2018 07:33
[2018-02-06] MEDS: Milk of Magnesia 30ml Ud ORAL SCH ×2 (08:27→09:00)
[2018-02-06] MEDS: Docusate 100mg cap ORAL SCH (08:30)
[2018-02-06] MEDS: chlordiazePOXIDE 25mg Cap ORAL SCH ×3 (08:30→17:38)
[2018-02-06] MEDS: Aspirin EC 81mg tab ORAL SCH (08:35)
[2018-02-06] MEDS: Heparin 5000 units/ml inj SUBQ SCH ×2 (08:35→20:37)
[2018-02-06] MEDS ORDERED: Solu-MEDROL 125mg Inj IVP SCH ×2 (09:00→21:00)
[2018-02-06] MEDS: Vancomycin 1250mg/D5W 250ml IVPB SCH (10:34)
[2018-02-06] MEDS ORDERED: LORazepam Inj 2mg/ml 1ml IV PRN (12:32)
--- NOTE | 2018-02-06 14:16 | Critical Care Progress Note ---
Assessment/Plan Assessment/Plan IMPRESSION: Acute respiratory failure, COPD with acute exacerbation, respiratory acidosis and associated hypoxemia, cardiomegaly, possible mild pulmonary edema, possible underlying pneumonia, protein-calorie malnutrition. PLAN respiratory care noted off vent continue same IV antibiotics IV steroids- ?dc supportive care stable and improved may transfer to tele medications/laboratory data/nursing notes/ICU care reviewed in detail note reviewed and edited care discussed with RN and RT ICU time spent 45 minutes Critical Care - Subjective Interval Events: seen in ICU self extubated stable overnight events reviewed ROS Limited/Unobtainable: Yes Condition: improving EKG Rhythm: Sinus Rhythm I&O: Intake and Output 02/05/18 02/06/18 19:00 07:00 Intake Total 1442.314 ml 1790.0 ml Output Total 660 ml 540 ml Balance 782.314 ml 1250.0 ml Free Water 30 ml IV Total 1267.314 ml 1260.0 ml Tube Feeding 175 ml 500 ml Output Urine Total 660 ml 540 ml Critical Care - Objective ET-Tube: 7.5 ET Position: 24 Last 24 Hour Vital Signs Date Time Temp Pulse Resp B/P (MAP) Pulse Ox O2 Delivery O2 Flow Rate FiO2 02/06/18 14:00 92 92/50 02/06/18 12:00 92 02/06/18 12:00 97.8 90 21 92/50 (64) 97 97.8 02/06/18 12:00 Mechanical Ventilator Venturi Mask 02/06/18 11:59 Venturi Mask 02/06/18 11:55 Venturi Mask 02/06/18 10:00 96 21 99/55 (70) 98 02/06/18 09:56 97 02/06/18 09:00 101 18 95/55 (68) 96 02/06/18 08:00 97.0 91 20 103/41 (61) 99 97.0 02/06/18 08:00 Venturi Mask Venturi Mask 02/06/18 07:59 88 16 99 Venturi Mask 8.0 40 02/06/18 07:50 40 02/06/18 07:49 92 16 97 Venturi Mask 8.0 40 02/06/18 07:43 Venturi Mask 8.0 40 02/06/18 07:42 97 Venturi Mask 8.0 40 02/06/18 07:00 99 17 108/60 (76) 97 02/06/18 06:00 98 20 103/48 (66) 97 02/06/18 05:53 90 106/63 02/06/18 05:00 92 17 92/45 (61) 97 02/06/18 04:00 98.6 93 21 106/63 (77) 97 98.6 02/06/18 04:00 93 02/06/18 04:00 Mechanical Ventilator Venturi Mask 02/06/18 03:00 88 17 101/53 (69) 98 02/06/18 02:50 87 18 98 Venturi Mask 8.0 40 02/06/18 02:40 45 02/06/18 02:40 84 18 98 Venturi Mask 10.0 45 02/06/18 02:00 87 19 93/45 (61) 95 02/06/18 01:00 95 19 119/70 (86) 96 02/06/18 00:00 Mechanical Ventilator Venturi Mask 02/06/18 00:00 98.2 98 18 113/67 (82) 97 98.2 02/06/18 00:00 98 02/05/18 23:00 99 20 116/68 (84) 99 02/05/18 22:50 100 19 98 Venturi Mask 10.0 45 02/05/18 22:37 96 16 99 Venturi Mask 55 02/05/18 22:00 102 20 126/65 (85) 98 02/05/18 21:33 95 113/67 02/05/18 21:00 95 19 113/67 (82) 98 02/05/18 20:54 95 20 55 02/05/18 20:00 98 Venturi Mask 14.0 55 02/05/18 20:00 Mechanical Ventilator Venturi Mask 02/05/18 20:00 91 02/05/18 20:00 98.3 91 20 114/50 (71) 98 98.3 02/05/18 20:00 Venturi Mask 14.0 55 02/05/18 19:53 Venturi Mask 14.0 55 02/05/18 19:30 16 102/49 Mechanical Ventilator 25 02/05/18 19:30 89 18 120/61 (80) 99 02/05/18 19:20 83 18 98 Mechanical Ventilator 28 02/05/18 19:03 79 16 95 Mechanical Ventilator 28 02/05/18 19:00 16 121/58 Mechanical Ventilator 25 02/05/18 19:00 87 16 102/49 (66) 100 02/05/18 19:00 79 16 28 02/05/18 18:30 83 16 93/45 (61) 94 02/05/18 18:00 81 16 115/64 (81) 95 02/05/18 18:00 15 115/64 Mechanical Ventilator 25 02/05/18 17:30 87 16 116/66 (83) 95 02/05/18 17:00 16 105/50 Mechanical Ventilator 25 02/05/18 17:00 92 20 105/50 (68) 96 02/05/18 16:48 85 16 25 02/05/18 16:30 89 15 105/59 (74) 86 02/05/18 16:00 25 02/05/18 16:00 Mechanical Ventilator 02/05/18 16:00 97.9 81 12 115/54 (74) 100 97.9 02/05/18 16:00 16 105/59 Mechanical Ventilator 25 02/05/18 15:30 85 02/05/18 15:30 85 12 112/54 (73) 100 02/05/18 15:00 86 12 110/50 (70) 100 02/05/18 15:00 13 110/50 Mechanical Ventilator 25 02/05/18 14:36 86 12 100 Mechanical Ventilator 25 02/05/18 14:34 79 17 25 02/05/18 14:31 85 21 100 Mechanical Ventilator 25 02/05/18 14:30 81 17 127/70 (89) 100 Labs: Laboratory Tests Test 02/05/18 20:20 02/05/18 20:29 02/06/18 05:00 Vancomycin Level Trough 4.7 ug/mL (5.0-12.0) L Arterial Blood pH 7.389 (7.350-7.450) Arterial Blood Partial Pressure CO2 45.2 mmHg (35.0-45.0) H Arterial Blood Partial Pressure O2 100.5 mmHg (75.0-100.0) H Arterial Blood HCO3 26.7 mmol/L (22.0-26.0) H Arterial Blood Oxygen Saturation 97.2 % (95-100) Arterial Blood Base Excess 1.2 (-2-2) Tarun Test Positive Sodium Level 145 MMOL/L (136-145) Potassium Level 3.3 MMOL/L (3.5-5.1) L Chloride Level 108 MMOL/L (98-107) H Carbon Dioxide Level 31 MMOL/L (21-32) Anion Gap 6 mmol/L (5-15) Blood Urea Nitrogen 13 mg/dL (7-18) Creatinine 0.8 MG/DL (0.55-1.30) Estimat Glomerular Filtration Rate mL/min (>60) Glucose Level 155 MG/DL (74-106) H Calcium Level 8.5 MG/DL (8.5-10.1) Total Bilirubin 0.3 MG/DL (0.2-1.0) Aspartate Amino Transf (AST/SGOT) 12 U/L (15-37) L Alanine Aminotransferase (ALT/SGPT) 28 U/L (12-78) Alkaline Phosphatase 78 U/L (46-116) Total Protein 6.7 G/DL (6.4-8.2) Albumin 2.8 G/DL (3.4-5.0) L Globulin 3.9 g/dL Albumin/Globulin Ratio 0.7 (1.0-2.7) L Objective: GENERAL: An ill-appearing female, presently off ventilator alert NAD NECK: Supple. No adenopathy. No jugular venous distention. LUNGS: Moderate breath sounds. no rhonchi. No wheezes. CARDIAC: S1 and S2. Regular rhythm without murmurs, rubs, or gallops. ABDOMEN: Soft, nontender, nondistended. no HSM EXTREMITIES: No cyanosis, clubbing, or edema. NEUROLOGIC: Grossly nonfocal, withdrawn, and sedated. reviewed and examined Micro: Microbiology Date/Time Source Procedure Growth Status 02/03/18 15:30 Blood Blood Culture - Preliminary NO GROWTH AFTER 48 HOURS Resulted 02/03/18 15:15 Blood Blood Culture - Preliminary NO GROWTH AFTER 48 HOURS Resulted Accucheck: 155 Mk Billings MD Feb 06, 2018 14:16
--- NOTE | 2018-02-06 15:04 | Diagnostic Imaging Report ---
APPROVED REPORT CPT Code: 97428 Present Symptoms Shortness of breath Comments: COPD BILATERAL: Imaging reveals a patent deep venous system bilaterally. There is no evidence of thrombus within the femoral, popliteal or tibial segments. The greater saphenous veins are also within normal limits. Doppler indicates normal spontaneous flow within these segments.
[2018-02-06] MEDS: Vancomycin 1250mg/D5W 250ml 250 ML IVPB SCH (21:17)
[2018-02-07] VITALS: BP 134/75
--- NOTE | 2018-02-07 03:15 | Progress Note ---
DATE: 02/06/2018 CARDIOLOGY PROGRESS NOTE SUBJECTIVE: The patient self-extubated yesterday. She has remained without respiratory distress. OBJECTIVE: VITAL SIGNS: Blood pressure , pulse 92, and respiratory rate 21. LUNGS: Bilateral breath sounds. No wheezing. HEART: Regular rhythm and rate. Normal S1 and S2. ABDOMEN: Soft. EXTREMITIES: Trace edema. LABORATORY DATA: Sodium 145, potassium 3.3, BUN 13, and creatinine 0.8. Albumin 2.8. IMPRESSION: 1. Status post respiratory failure. 2. Chronic obstructive pulmonary disease exacerbation. 3. Acute myocardial ischemia, resolved. 4. Hypokalemia. 5. Acute diastolic congestive heart failure, now compensated. 6. Moderate protein-calorie malnutrition. PLAN: 1. Cardiac monitoring, continue to follow respiratory parameters, acid-base status, and clinical signs of worsening oxygenation. 2. Maintain anti-platelet therapy. 3. Aspiration precautions. 4. Replace potassium. 5. Check magnesium. Ashvin Wu M.D. DR: CASEY JOB#: [id number] CC:
[2018-02-07] MEDS: Albuterol/Ipratropium 3ml neb HHN SCH ×5 (03:40→23:18)
[2018-02-07 04:00] VITALS: BP 138/76
[2018-02-07 04:39] LABS: ALANINE AMINOTRANSFERASE 26 U/L (12-78); ALBUMIN 2.6 G/DL (3.4-5.0); ALBUMIN/GLOBULIN RATIO 0.7 (1.0-2.7); ALKALINE PHOSPHATASE 73 U/L (46-116); ANION GAP 1 mmol/L (5-15); ASPARTATE AMINO TRANSFERASE 18 U/L (15-37); BILIRUBIN,TOTAL 0.4 MG/DL (0.2-1.0); BLOOD UREA NITROGEN 19 mg/dL (7-18); CALCIUM 8.4 MG/DL (8.5-10.1); CARBON DIOXIDE 35 MMOL/L (21-32); CHLORIDE 109 MMOL/L (98-107); CREATININE 0.7 MG/DL (0.55-1.30); POTASSIUM 5.6 MMOL/L (3.5-5.1); SODIUM 144 MMOL/L (136-145)
[2018-02-07] MEDS: Theophylline 80mg/15ml ORAL SCH ×3 (05:12→21:03)
[2018-02-07] MEDS: dilTIAZem HCl 60mg tab ORAL SCH ×3 (05:13→21:03)
--- NOTE | 2018-02-07 07:22 | General Progress Note ---
Assessment/Plan Problem List: (1) COPD exacerbation ICD Codes: J44.1 - Chronic obstructive pulmonary disease with (acute) exacerbation SNOMED: 452468677 (2) HTN (hypertension) ICD Codes: I10 - Essential (primary) hypertension SNOMED: 06118684 (3) Hypoxia ICD Codes: R09.02 - Hypoxemia SNOMED: 497871712 (4) Elevated troponin ICD Codes: R74.8 - Abnormal levels of other serum enzymes SNOMED: 839103870, 522254019, 646188315 (5) Renal insufficiency ICD Codes: N28.9 - Disorder of kidney and ureter, unspecified SNOMED: 240894639, 199863832 (6) Respiratory failure ICD Codes: J96.90 - Respiratory failure, unspecified, unspecified whether with hypoxia or hypercapnia SNOMED: 563861593 Qualifiers: Qualified Codes: J96.02 - Acute respiratory failure with hypercapnia (7) Right lower lobe pneumonia ICD Codes: J18.1 - Lobar pneumonia, unspecified organism SNOMED: 739370441 Qualifiers: Qualified Codes: J18.1 - Lobar pneumonia, unspecified organism Status: stable, progressing Assessment/Plan resp care suctionig as needed resp rx puree diet video swallow per speech wean steroids anxiolytics as needed iv abx dc librium prn ativan dc planning tomorrow dvt/stress ulcer prophylaxis Subjective ROS Limited/Unobtainable: Yes Constitutional: Reports: malaise, weakness HEENT: Reports: no symptoms Cardiovascular: Reports: no symptoms Respiratory: Reports: no symptoms Gastrointestinal/Abdominal: Reports: no symptoms Genitourinary: Reports: no symptoms Neurologic/Psychiatric: Reports: anxiety Endocrine: Reports: no symptoms Hematologic/Lymphatic: Reports: no symptoms Allergies: Coded Allergies: No Known Allergies (Unverified , 12/10/15) All Systems: reviewed and negative except above Subjective no complaints. drowsy. trying to eat breakfast. no sob. on nasal cannula Objective Last 24 Hour Vital Signs Date Time Temp Pulse Resp B/P (MAP) Pulse Ox O2 Delivery O2 Flow Rate FiO2 02/07/18 05:13 92 136/78 02/07/18 04:00 Mechanical Ventilator Venturi Mask 02/07/18 04:00 97 02/07/18 04:00 98.0 93 20 138/76 (96) 97 98.0 02/07/18 03:43 97 18 97 Nasal Cannula 2.0 28 02/07/18 03:33 92 18 95 Nasal Cannula 2.0 28 02/07/18 00:00 Mechanical Ventilator Venturi Mask 02/07/18 00:00 94 02/07/18 00:00 98.0 94 20 134/75 (94) 96 98.0 02/06/18 23:19 90 18 94 Nasal Cannula 2.0 28 02/06/18 23:19 91 18 96 Nasal Cannula 2.0 28 02/06/18 21:11 82 150/78 02/06/18 20:00 97 02/06/18 20:00 98.4 99 20 150/78 (102) 96 98.4 02/06/18 20:00 Mechanical Ventilator Venturi Mask 02/06/18 19:51 98 18 99 Nasal Cannula 2.0 28 02/06/18 19:50 98 Nasal Cannula 2.0 28 02/06/18 19:50 Nasal Cannula 2.0 28 02/06/18 19:40 95 18 98 Nasal Cannula 2.0 28 02/06/18 17:11 99 02/06/18 16:00 98.3 96 20 118/69 (85) 100 98.3 02/06/18 16:00 Mechanical Ventilator Venturi Mask 02/06/18 15:38 98 18 99 Nasal Cannula 3.0 02/06/18 15:28 100 18 95 Nasal Cannula 3.0 02/06/18 14:00 92 92/50 02/06/18 12:00 92 02/06/18 12:00 97.8 90 21 92/50 (64) 97 97.8 02/06/18 12:00 Mechanical Ventilator Venturi Mask 02/06/18 11:59 Venturi Mask 02/06/18 11:55 Venturi Mask 02/06/18 10:00 96 21 99/55 (70) 98 02/06/18 09:56 97 02/06/18 09:00 101 18 95/55 (68) 96 02/06/18 08:00 97.0 91 20 103/41 (61) 99 97.0 02/06/18 08:00 Venturi Mask Venturi Mask 02/06/18 07:59 88 16 99 Venturi Mask 8.0 40 02/06/18 07:50 40 02/06/18 07:49 92 16 97 Venturi Mask 8.0 40 02/06/18 07:43 Venturi Mask 8.0 40 02/06/18 07:42 97 Venturi Mask 8.0 40 Intake and Output 02/06/18 02/07/18 19:00 07:00 Intake Total 922.0 ml 443.2 ml Output Total 1000 ml 400 ml Balance -78.0 ml 43.2 ml Intake Oral 600 ml IV Total 92.0 ml 443.2 ml Tube Feeding 180 ml Other 50 ml Output Urine Total 1000 ml 400 ml # Bowel Movements 3 1 Laboratory Tests 02/07/18 04:00: Sodium Level 144, Potassium Level 5.6#H, Chloride Level 109H, Carbon Dioxide Level 35H, Anion Gap 1L, Blood Urea Nitrogen 19H, Creatinine 0.7, Estimat Glomerular Filtration Rate , Glucose Level 125H, Calcium Level 8.4L, Total Bilirubin 0.4, Aspartate Amino Transf (AST/SGOT) 18, Alanine Aminotransferase ( ALT/SGPT) 26, Alkaline Phosphatase 73, Total Protein 6.5, Albumin 2.6L, Globulin 3.9, Albumin/Globulin Ratio 0.7L Height (Feet): 5 Height (Inches): 6.00 Weight (Pounds): 205 General Appearance: WD/WN, lethargic Neck: supple Cardiovascular: regular rhythm Respiratory/Chest: chest wall non-tender, lungs clear, normal breath sounds Abdomen: normal bowel sounds, non tender, soft, no organomegaly Edema: no edema noted Arm (L), no edema noted Arm (R), no edema noted Leg (L), no edema noted Leg (R), no edema noted Pedal (L), no edema noted Pedal (R), no edema noted Generalized Neurologic: responsive Skin: normal pigmentation Manan Byrd MD Feb 07, 2018 07:22
[2018-02-07] MEDS ORDERED: LORazepam Inj 2mg/ml 1ml IV PRN (07:30)
[2018-02-07] MEDS ORDERED: Sodium Polystyrene Sulfonate 15gm Powder ORAL SCH (07:30)
[2018-02-07 08:00] VITALS: BP 131/68
[2018-02-07 08:25] LABS: ANION GAP 4 mmol/L (5-15); BLOOD UREA NITROGEN 19 mg/dL (7-18); CALCIUM 8.7 MG/DL (8.5-10.1); CARBON DIOXIDE 35 MMOL/L (21-32); CHLORIDE 108 MMOL/L (98-107); CREATININE 0.8 MG/DL (0.55-1.30); POTASSIUM 4.7 MMOL/L (3.5-5.1); SODIUM 147 MMOL/L (136-145)
[2018-02-07] MEDS: Docusate 100mg cap ORAL SCH (08:49)
[2018-02-07] MEDS: Milk of Magnesia 30ml Ud ORAL SCH (08:50)
--- NOTE | 2018-02-07 08:52 | Critical Care Progress Note ---
Assessment/Plan Assessment/Plan IMPRESSION: Acute respiratory failure, COPD with acute exacerbation, respiratory acidosis and associated hypoxemia, cardiomegaly, possible mild pulmonary edema, possible underlying pneumonia, protein-calorie malnutrition. PLAN respiratory care noted off vent BIPAp now IV antibiotics supportive care stable and improved d/w RN; monitor in [facility] for now medications/laboratory data/nursing notes reviewed in detail note reviewed and edited care discussed with RN and RT Critical Care - Subjective Interval Events: out of ICU ABG noted care reviewed EKG Rhythm: Sinus Rhythm I&O: Intake and Output 02/06/18 02/07/18 19:00 07:00 Intake Total 922.0 ml 443.2 ml Output Total 1000 ml 400 ml Balance -78.0 ml 43.2 ml Intake Oral 600 ml IV Total 92.0 ml 443.2 ml Tube Feeding 180 ml Other 50 ml Output Urine Total 1000 ml 400 ml # Bowel Movements 3 1 Critical Care - Objective ET-Tube: 7.5 ET Position: 24 Last 24 Hour Vital Signs Date Time Temp Pulse Resp B/P (MAP) Pulse Ox O2 Delivery O2 Flow Rate FiO2 02/07/18 08:00 Nasal Cannula 2.0 Venturi Mask 02/07/18 05:13 92 136/78 02/07/18 04:00 Mechanical Ventilator Venturi Mask 02/07/18 04:00 97 02/07/18 04:00 98.0 93 20 138/76 (96) 97 98.0 02/07/18 03:43 97 18 97 Nasal Cannula 2.0 28 02/07/18 03:33 92 18 95 Nasal Cannula 2.0 02/07/18 00:00 Mechanical Ventilator Venturi Mask 02/07/18 00:00 94 02/07/18 00:00 98.0 94 20 134/75 (94) 96 98.0 02/06/18 23:19 90 18 94 Nasal Cannula 2.0 28 02/06/18 23:19 91 18 96 Nasal Cannula 2.0 28 02/06/18 21:11 82 150/78 02/06/18 20:00 97 02/06/18 20:00 98.4 99 20 150/78 (102) 96 98.4 02/06/18 20:00 Mechanical Ventilator Venturi Mask 02/06/18 19:51 98 18 99 Nasal Cannula 2.0 28 02/06/18 19:50 98 Nasal Cannula 2.0 28 02/06/18 19:50 Nasal Cannula 2.0 28 02/06/18 19:40 95 18 98 Nasal Cannula 2.0 28 02/06/18 17:11 99 02/06/18 16:00 98.3 96 20 118/69 (85) 100 98.3 02/06/18 16:00 Mechanical Ventilator Venturi Mask 02/06/18 15:38 98 18 99 Nasal Cannula 3.0 02/06/18 15:28 100 18 95 Nasal Cannula 3.0 02/06/18 14:00 92 92/50 02/06/18 12:00 92 02/06/18 12:00 97.8 90 21 92/50 (64) 97 97.8 02/06/18 12:00 Mechanical Ventilator Venturi Mask 02/06/18 11:59 Venturi Mask 02/06/18 11:55 Venturi Mask 02/06/18 10:00 96 21 99/55 (70) 98 02/06/18 09:56 97 02/06/18 09:00 101 18 95/55 (68) 96 Objective: GENERAL: An ill-appearing female, presently off ventilator alert NAD NECK: Supple. No adenopathy. No jugular venous distention. LUNGS: Moderate breath sounds. no rhonchi. No wheezes. CARDIAC: S1 and S2. Regular rhythm without murmurs, rubs, or gallops. ABDOMEN: Soft, nontender, nondistended. no HSM EXTREMITIES: No cyanosis, clubbing, or edema. NEUROLOGIC: Grossly nonfocal, alert reviewed and examined Accucheck: 107 Mk Billings MD Feb 07, 2018 08:52
[2018-02-07] MEDS: Aspirin EC 81mg tab ORAL SCH (09:01)
[2018-02-07] MEDS: Piperacillin/Tazobactam 3.375 GM in NS 110 ML IVPB SCH ×4 (09:07→20:09)
[2018-02-07] MEDS: Heparin 5000 units/ml inj SUBQ SCH ×2 (09:11→20:10)
[2018-02-07] MEDS: Solu-MEDROL 125mg Inj IVP SCH (09:12)
[2018-02-07] MEDS: Vancomycin 1250mg/D5W 250ml 250 ML IVPB SCH ×2 (10:18→21:04)
[2018-02-07 12:00] VITALS: BP 128/68
[2018-02-07] MEDS ORDERED: NS 275ml ONE (15:05)
[2018-02-07] MEDS ORDERED: Tubing IV Secondary IV ONE ×2 (15:05→15:32)
[2018-02-07] MEDS ORDERED: D5NS 1000ml IV ONE ×2 (15:05→15:32)
[2018-02-07 16:00] VITALS: BP 125/71
[2018-02-07 20:00] VITALS: BP 131/73
[2018-02-07] MEDS: Solu-MEDROL 40mg Inj IVP SCH (20:09)
[2018-02-08] VITALS: BP 133/79
--- NOTE | 2018-02-08 02:45 | Progress Note ---
DATE: 02/07/2018 CARDIOLOGY PROGRESS NOTE SUBJECTIVE: The patient is off ventilator for two days now. No respiratory distress. She is tolerating a diet. She remains with low energy. OBJECTIVE: VITAL SIGNS: Blood pressure 138/76, pulse 93, and respiratory rate 20. LUNGS: Coarse breath sounds. No wheezing. HEART: Regular rhythm and rate. Normal S1, S2. ABDOMEN: Soft. EXTREMITIES: No edema. LABORATORY DATA: Sodium 147, potassium 4.7, chloride 108, bicarbonate 35, BUN 19, and creatinine 0.8. ABG, pH 7.31, pCO2 72, and pO2 73. IMPRESSION: 1. Acute on chronic respiratory acidosis. 2. Hypernatremia. 3. Dehydration. 4. Contraction alkalosis. 5. Status post acute myocardial ischemia. 6. Status post respiratory failure. PLAN: 1. Respiratory hygiene. 2. May need BiPAP support. 3. Free water replacement. 4. DVT prophylaxis. 5. Aspiration precautions. 6. Antimicrobials per infectious disease service consultant. Ashvin Wu M.D. DR: KADIE JOB#: [id number] CC:
[2018-02-08] MEDS: Piperacillin/Tazobactam 3.375 GM in NS 110 ML IVPB SCH ×2 (03:09→12:44)
[2018-02-08] MEDS: Albuterol/Ipratropium 3ml neb HHN SCH ×6 (03:35→23:02)
[2018-02-08 04:00] VITALS: BP 128/69
[2018-02-08] MEDS: Theophylline 80mg/15ml ORAL SCH ×3 (05:14→21:41)
[2018-02-08] MEDS: dilTIAZem HCl 60mg tab ORAL SCH ×3 (05:14→21:42)
[2018-02-08 07:21] LABS: ALANINE AMINOTRANSFERASE 22 U/L (12-78); ALBUMIN 2.3 G/DL (3.4-5.0); ALBUMIN/GLOBULIN RATIO 0.7 (1.0-2.7); ALKALINE PHOSPHATASE 65 U/L (46-116); ANION GAP 1 mmol/L (5-15); ASPARTATE AMINO TRANSFERASE 9 U/L (15-37); BILIRUBIN,TOTAL 0.4 MG/DL (0.2-1.0); BLOOD UREA NITROGEN 15 mg/dL (7-18); CARBON DIOXIDE 36 MMOL/L (21-32); CHLORIDE 107 MMOL/L (98-107); CREATININE 0.7 MG/DL (0.55-1.30); POTASSIUM 4.3 MMOL/L (3.5-5.1); SODIUM 143 MMOL/L (136-145)
--- NOTE | 2018-02-08 07:22 | General Progress Note ---
Assessment/Plan Problem List: (1) COPD exacerbation ICD Codes: J44.1 - Chronic obstructive pulmonary disease with (acute) exacerbation SNOMED: 023742282 (2) HTN (hypertension) ICD Codes: I10 - Essential (primary) hypertension SNOMED: 10682887 (3) Hypoxia ICD Codes: R09.02 - Hypoxemia SNOMED: 494195618 (4) Elevated troponin ICD Codes: R74.8 - Abnormal levels of other serum enzymes SNOMED: 033228900, 571465412, 708200341 (5) Renal insufficiency ICD Codes: N28.9 - Disorder of kidney and ureter, unspecified SNOMED: 978455787, 342342121 (6) Respiratory failure ICD Codes: J96.90 - Respiratory failure, unspecified, unspecified whether with hypoxia or hypercapnia SNOMED: 174780868 Qualifiers: Qualified Codes: J96.02 - Acute respiratory failure with hypercapnia (7) Right lower lobe pneumonia ICD Codes: J18.1 - Lobar pneumonia, unspecified organism SNOMED: 332820128 Qualifiers: Qualified Codes: J18.1 - Lobar pneumonia, unspecified organism Status: stable, not improved Assessment/Plan resp care suctionig as needed bipap resp rx puree diet video swallow per speech wean steroids anxiolytics only if needed iv abx prn ativan dc planning on hold until resp status better dvt/stress ulcer prophylaxis Subjective ROS Limited/Unobtainable: No Constitutional: Reports: malaise, weakness HEENT: Reports: no symptoms Cardiovascular: Reports: no symptoms Respiratory: Reports: cough, shortness of breath Gastrointestinal/Abdominal: Reports: no symptoms Genitourinary: Reports: no symptoms Neurologic/Psychiatric: Reports: pre-existing deficit Endocrine: Reports: no symptoms Hematologic/Lymphatic: Reports: anemia Allergies: Coded Allergies: No Known Allergies (Unverified , 12/10/15) All Systems: reviewed and negative except above Subjective events noted. back on bipap for resp acidosis. per staff more awake and alert. Objective Last 24 Hour Vital Signs Date Time Temp Pulse Resp B/P (MAP) Pulse Ox O2 Delivery O2 Flow Rate FiO2 02/08/18 07:09 75 21 99 Bi-pap 30 02/08/18 06:58 Bi-pap 30 02/08/18 06:57 94 Bi-pap 30 02/08/18 06:56 77 23 95 Facial 30 02/08/18 06:54 78 26 94 Bi-pap 30 02/08/18 05:14 88 128/69 02/08/18 05:07 76 16 98 Facial 30 02/08/18 04:00 Bi-pap Venturi Mask 02/08/18 04:00 98.4 82 19 128/69 (88) 97 98.4 02/08/18 04:00 82 02/08/18 03:49 82 14 98 Bi-pap 30 02/08/18 03:35 79 14 98 Bi-pap 30 02/08/18 03:00 82 20 96 Facial 30 02/08/18 01:05 83 14 95 Facial 30 02/08/18 00:00 98.0 89 15 133/79 (97) 95 98.0 02/08/18 00:00 30 02/08/18 00:00 88 02/08/18 00:00 Bi-pap Venturi Mask 02/07/18 23:24 86 22 98 Bi-pap 30 02/07/18 23:14 86 26 98 Facial 30 02/07/18 23:14 86 26 94 Bi-pap 30 02/07/18 21:25 87 22 93 Facial 30 02/07/18 21:03 103 131/73 02/07/18 20:00 102 02/07/18 20:00 Bi-pap Venturi Mask 02/07/18 20:00 30 02/07/18 20:00 98.4 103 20 131/73 (92) 96 98.4 02/07/18 19:22 99 18 95 Nasal Cannula 2.0 28 02/07/18 19:12 28 02/07/18 19:12 Nasal Cannula 2.0 28 02/07/18 19:12 87 22 93 Nasal Cannula 2.0 28 02/07/18 19:12 92 Nasal Cannula 2.0 28 02/07/18 16:00 97.3 85 16 125/71 (89) 100 97.3 02/07/18 16:00 88 02/07/18 16:00 Bi-pap Venturi Mask 02/07/18 15:40 83 18 96 Bi-pap 15.0 30 02/07/18 15:30 75 16 95 Bi-pap 15.0 30 02/07/18 15:30 28 02/07/18 15:00 85 20 94 Facial 15.0 30 02/07/18 13:55 86 128/68 02/07/18 12:21 86 18 96 Bi-pap 15.0 30 02/07/18 12:10 80 16 95 Bi-pap 15.0 30 02/07/18 12:10 28 02/07/18 12:00 Bi-pap Venturi Mask 02/07/18 12:00 30 02/07/18 12:00 84 02/07/18 12:00 97.5 92 20 128/68 (88) 95 97.5 02/07/18 11:30 90 16 95 Facial 15.0 30 02/07/18 09:20 98 22 94 Facial 15.0 30 02/07/18 08:48 90 18 96 Nasal Cannula 2.0 28 02/07/18 08:38 Nasal Cannula 2.0 28 02/07/18 08:38 82 18 95 Nasal Cannula 2.0 28 02/07/18 08:38 28 02/07/18 08:38 95 Nasal Cannula 2.0 28 02/07/18 08:00 97.7 96 20 131/68 (89) 94 97.7 02/07/18 08:00 Nasal Cannula 2.0 Venturi Mask 02/07/18 08:00 103 Intake and Output 02/07/18 02/08/18 19:00 07:00 Intake Total 887.5 ml 951.2 ml Output Total 850 ml Balance 887.5 ml 101.2 ml Intake Oral 860 ml IV Total 27.5 ml 951.2 ml Output Urine Total 850 ml # Bowel Movements 3 5 Laboratory Tests 02/07/18 07:45: Sodium Level 147H, Potassium Level 4.7, Chloride Level 108H, Carbon Dioxide Level 35H, Anion Gap 4L, Blood Urea Nitrogen 19H, Creatinine 0.8, Estimat Glomerular Filtration Rate , Glucose Level 136H, Calcium Level 8.7 02/07/18 08:32: Arterial Blood pH 7.250*L, Arterial Blood Partial Pressure CO2 79.6*H, Arterial Blood Partial Pressure O2 64.3L, Arterial Blood HCO3 34.1H, Arterial Blood Oxygen Saturation 91.1L, Arterial Blood Base Excess 3.9H, Tarun Test Positive 02/07/18 08:50: Vancomycin Level Trough 16.2H 02/07/18 12:02: Arterial Blood pH 7.309L, Arterial Blood Partial Pressure CO2 72.5*H, Arterial Blood Partial Pressure O2 73.0L, Arterial Blood HCO3 35.6H, Arterial Blood Oxygen Saturation 94.9L, Arterial Blood Base Excess 6.6H, Tarun Test Positive 02/08/18 05:10: White Blood Count [Pending], Red Blood Count [Pending], Hemoglobin [Pending], Hematocrit [Pending], Mean Corpuscular Volume [Pending], Mean Corpuscular Hemoglobin [Pending], Mean Corpuscular Hemoglobin Concent [Pending], Red Cell Distribution Width [Pending], Platelet Count [Pending], Mean Platelet Volume [ Pending], Neutrophils (%) (Auto) [Pending], Lymphocytes (%) (Auto) [Pending], Monocytes (%) (Auto) [Pending], Eosinophils (%) (Auto) [Pending], Basophils (%) (Auto) [Pending], Sodium Level [Pending], Potassium Level [Pending], Chloride Level [Pending], Carbon Dioxide Level [Pending], Blood Urea Nitrogen [Pending], Creatinine [Pending], Estimat Glomerular Filtration Rate [Pending], Glucose Level [Pending], Calcium Level [Pending], Magnesium Level [Pending], Total Bilirubin [Pending], Aspartate Amino Transf (AST/SGOT) [Pending], Alanine Aminotransferase (ALT/SGPT) [Pending], Alkaline Phosphatase [Pending], Total Protein [Pending], Albumin [Pending], Globulin [Pending] 02/08/18 07:02: Arterial Blood pH 7.336L, Arterial Blood Partial Pressure CO2 66.7*H, Arterial Blood Partial Pressure O2 66.3L, Arterial Blood HCO3 34.9H, Arterial Blood Oxygen Saturation 98.7, Arterial Blood Base Excess 6.6H, Tarun Test Positive Height (Feet): 5 Height (Inches): 6.00 Weight (Pounds): 205 General Appearance: WD/WN, alert Neck: supple Cardiovascular: regular rhythm Respiratory/Chest: lungs clear Abdomen: normal bowel sounds, non tender, soft, no organomegaly Edema: no edema noted Arm (L), no edema noted Arm (R), no edema noted Leg (L), no edema noted Leg (R), no edema noted Pedal (L), no edema noted Pedal (R), no edema noted Generalized Manan Byrd MD Feb 08, 2018 07:22
[2018-02-08 07:30] LABS: HEMATOCRIT 46.1 % (37.0-47.0); HEMOGLOBIN 13.7 G/DL (12.0-16.0); MEAN CORPUSCULAR VOLUME 95 FL (80-99); PLATELET COUNT 221 K/UL (150-450); RED BLOOD COUNT 4.86 M/UL (4.20-5.40); RED CELL DISTRIBUTION WIDTH 14.7 % (11.6-14.8); WHITE BLOOD COUNT 11.2 K/UL (4.8-10.8)
[2018-02-08 08:00] VITALS: BP 149/75
[2018-02-08] MEDS: Milk of Magnesia 30ml Ud ORAL SCH (08:51)
[2018-02-08] MEDS: Docusate 100mg cap ORAL SCH (08:51)
[2018-02-08] MEDS: Solu-MEDROL 40mg Inj IVP SCH ×2 (08:51→20:58)
[2018-02-08] MEDS: Aspirin EC 81mg tab ORAL SCH (08:52)
[2018-02-08] MEDS: Heparin 5000 units/ml inj SUBQ SCH ×2 (08:53→21:00)
--- NOTE | 2018-02-08 08:56 | Critical Care Progress Note ---
Assessment/Plan Assessment/Plan IMPRESSION: Acute respiratory failure, COPD with acute exacerbation, respiratory acidosis and associated hypoxemia, cardiomegaly, possible mild pulmonary edema, possible underlying pneumonia, protein-calorie malnutrition. PLAN respiratory care noted off vent BIPAp as needed IV antibiotics supportive care monitor closely for now avoid sedation d/w RN; monitor in RAMSES for now medications/laboratory data/nursing notes reviewed in detail note reviewed and edited care discussed with RN and RT Critical Care - Subjective Interval Events: care noted and reviewed BIPAP management noted ABG reviewed Condition: stable EKG Rhythm: Sinus Rhythm I&O: Intake and Output 02/07/18 02/08/18 19:00 07:00 Intake Total 887.5 ml 951.2 ml Output Total 850 ml Balance 887.5 ml 101.2 ml Intake Oral 860 ml IV Total 27.5 ml 951.2 ml Output Urine Total 850 ml # Bowel Movements 3 5 Critical Care - Objective ET-Tube: 7.5 ET Position: 24 Last 24 Hour Vital Signs Date Time Temp Pulse Resp B/P (MAP) Pulse Ox O2 Delivery O2 Flow Rate FiO2 02/08/18 08:42 82 02/08/18 07:09 75 21 99 Bi-pap 30 02/08/18 06:58 Bi-pap 30 02/08/18 06:57 94 Bi-pap 30 02/08/18 06:56 77 23 95 Facial 30 02/08/18 06:54 78 26 94 Bi-pap 30 02/08/18 05:14 88 128/69 02/08/18 05:07 76 16 98 Facial 30 02/08/18 04:00 Bi-pap Venturi Mask 02/08/18 04:00 98.4 82 19 128/69 (88) 97 98.4 02/08/18 04:00 82 02/08/18 03:49 82 14 98 Bi-pap 30 02/08/18 03:35 79 14 98 Bi-pap 30 02/08/18 03:00 82 20 96 Facial 30 02/08/18 01:05 83 14 95 Facial 30 02/08/18 00:00 98.0 89 15 133/79 (97) 95 98.0 02/08/18 00:00 30 02/08/18 00:00 88 02/08/18 00:00 Bi-pap Venturi Mask 02/07/18 23:24 86 22 98 Bi-pap 30 02/07/18 23:14 86 26 98 Facial 30 02/07/18 23:14 86 26 94 Bi-pap 30 02/07/18 21:25 87 22 93 Facial 30 02/07/18 21:03 103 131/73 02/07/18 20:00 102 02/07/18 20:00 Bi-pap Venturi Mask 02/07/18 20:00 30 02/07/18 20:00 98.4 103 20 131/73 (92) 96 98.4 02/07/18 19:22 99 18 95 Nasal Cannula 2.0 28 02/07/18 19:12 28 02/07/18 19:12 Nasal Cannula 2.0 28 02/07/18 19:12 87 22 93 Nasal Cannula 2.0 28 02/07/18 19:12 92 Nasal Cannula 2.0 28 02/07/18 16:00 97.3 85 16 125/71 (89) 100 97.3 02/07/18 16:00 88 02/07/18 16:00 Bi-pap Venturi Mask 02/07/18 15:40 83 18 96 Bi-pap 15.0 30 02/07/18 15:30 75 16 95 Bi-pap 15.0 30 02/07/18 15:30 28 02/07/18 15:00 85 20 94 Facial 15.0 30 02/07/18 13:55 86 128/68 02/07/18 12:21 86 18 96 Bi-pap 15.0 30 02/07/18 12:10 80 16 95 Bi-pap 15.0 30 02/07/18 12:10 28 02/07/18 12:00 Bi-pap Venturi Mask 02/07/18 12:00 30 02/07/18 12:00 84 02/07/18 12:00 97.5 92 20 128/68 (88) 95 97.5 02/07/18 11:30 90 16 95 Facial 15.0 30 02/07/18 09:20 98 22 94 Facial 15.0 30 Labs: Laboratory Tests Test 02/07/18 12:02 02/08/18 05:10 02/08/18 07:02 Arterial Blood pH 7.309 (7.350-7.450) 7.336 (7.350-7.450) Arterial Blood Partial Pressure CO2 72.5 mmHg (35.0-45.0) *H 66.7 mmHg (35.0-45.0) *H Arterial Blood Partial Pressure O2 73.0 mmHg (75.0-100.0) L 66.3 mmHg (75.0-100.0) L Arterial Blood HCO3 35.6 mmol/L (22.0-26.0) H 34.9 mmol/L (22.0-26.0) H Arterial Blood Oxygen Saturation 94.9 % (95-100) L 98.7 % (95-100) Arterial Blood Base Excess 6.6 (-2-2) H 6.6 (-2-2) H Tarun Test Positive Positive White Blood Count 11.2 K/UL (4.8-10.8) H Red Blood Count 4.86 M/UL (4.20-5.40) Hemoglobin 13.7 G/DL (12.0-16.0) Hematocrit 46.1 % (37.0-47.0) Mean Corpuscular Volume 95 FL (80-99) Mean Corpuscular Hemoglobin 28.2 PG (27.0-31.0) Mean Corpuscular Hemoglobin Concent 29.7 G/DL (32.0-36.0) L Red Cell Distribution Width 14.7 % (11.6-14.8) Platelet Count 221 K/UL (150-450) Mean Platelet Volume 6.6 FL (6.5-10.1) Neutrophils (%) (Auto) % (45.0-75.0) Lymphocytes (%) (Auto) % (20.0-45.0) Monocytes (%) (Auto) % (1.0-10.0) Eosinophils (%) (Auto) % (0.0-3.0) Basophils (%) (Auto) % (0.0-2.0) Neutrophils % (Manual) Pending Lymphocytes % (Manual) Pending Platelet Estimate Pending Platelet Morphology Pending Sodium Level 143 MMOL/L (136-145) Potassium Level 4.3 MMOL/L (3.5-5.1) Chloride Level 107 MMOL/L (98-107) Carbon Dioxide Level 36 MMOL/L (21-32) H Anion Gap 1 mmol/L (5-15) L Blood Urea Nitrogen 15 mg/dL (7-18) Creatinine 0.7 MG/DL (0.55-1.30) Estimat Glomerular Filtration Rate mL/min (>60) Glucose Level 93 MG/DL (74-106) Calcium Level 8.0 MG/DL (8.5-10.1) L Magnesium Level 1.9 MG/DL (1.8-2.4) Total Bilirubin 0.4 MG/DL (0.2-1.0) Aspartate Amino Transf (AST/SGOT) 9 U/L (15-37) L Alanine Aminotransferase (ALT/SGPT) 22 U/L (12-78) Alkaline Phosphatase 65 U/L (46-116) Total Protein 5.6 G/DL (6.4-8.2) L Albumin 2.3 G/DL (3.4-5.0) L Globulin 3.3 g/dL Albumin/Globulin Ratio 0.7 (1.0-2.7) L Objective: GENERAL: An ill-appearing female, presently off ventilator alert NAD NECK: Supple. No adenopathy. No jugular venous distention. LUNGS: Moderate breath sounds. no rhonchi. No wheezes. CARDIAC: S1 and S2. Regular rhythm without murmurs, rubs, or gallops. ABDOMEN: Soft, nontender, nondistended. no HSM EXTREMITIES: No cyanosis, clubbing, or edema. NEUROLOGIC: Grossly nonfocal, alert reviewed and examined Accucheck: 86 Mk Billings MD Feb 08, 2018 08:56
--- NOTE | 2018-02-08 10:39 | Diagnostic Imaging Report ---
Indication: Dyspnea Comparison: 02/03/2018 A single view chest radiograph was obtained. Findings: The heart is enlarged. Pulmonary vascularity is within normal limits at this time. Small basilar effusions a be present as well as atelectasis or infiltrate. IMPRESSION: No evidence of pulmonary edema/CHF at this time. Suggestion of basilar atelectasis. Possible small pleural effusions
[2018-02-08 12:00] VITALS: BP 132/84
[2018-02-08] MEDS: Vancomycin 1250mg/D5W 250ml 250 ML IVPB SCH ×2 (12:44→23:11)
[2018-02-08 16:11] VITALS: BP 143/76
[2018-02-08] MEDS: Piperacillin/Tazobactam 3.375 GM in D5W 110 ML IVPB SCH (17:46)
[2018-02-08] MEDS ORDERED: Piperacillin/Tazobactam 3.375 GM in D5W 110 ML IVPB SCH (18:00)
[2018-02-08 20:00] VITALS: BP 134/81
[2018-02-09] VITALS: BP 128/73
[2018-02-09] MEDS: Piperacillin/Tazobactam 3.375 GM in D5W 110 ML IVPB SCH ×4 (00:55→18:11)
--- NOTE | 2018-02-09 02:30 | Progress Note ---
DATE: 02/08/2018 CARDIOLOGY PROGRESS NOTE SUBJECTIVE: The patient's condition deteriorated. She became increasingly withdrawn. ABG was obtained and she was noted to have worsening respiratory acidosis and placed back on BiPAP support. She subsequently improved. OBJECTIVE: VITAL SIGNS: Blood pressure 128/69, pulse 88, respiratory rate 26, afebrile. LUNGS: Bilateral breath sounds. No wheezing. HEART: Regular rhythm and rate. Normal S1, S2. ABDOMEN: Soft. EXTREMITIES: Trace edema. LABORATORY DATA: White count 11, hemoglobin 13.7. Potassium 4.3, magnesium 1.9. BUN 15, creatinine 0.7. Albumin 2.3. ABG, pH 7.37, pCO2 68, pO2 66. IMPRESSION: 1. Acute on chronic respiratory acidosis. 2. COPD. 3. Paroxysmal bronchospasm. 4. Compensatory metabolic alkalosis. 5. Dehydration and hypernatremia, corrected. 6. Acute myocardial ischemia, resolved. 7. [id number] protein-calorie malnutrition. PLAN: 1. BiPAP support. 2. Taper IV fluids. 3. Antimicrobials. 4. Anti-platelet therapy. 5. Diltiazem for suppression of atrial arrhythmias. 6. Steroid taper per dialysis biomed technician. 7. DVT prophylaxis. Neri Gaston JOB#: [id number] CC:
[2018-02-09] MEDS: Albuterol/Ipratropium 3ml neb HHN SCH ×6 (03:14→22:51)
[2018-02-09 04:00] VITALS: BP 133/71
[2018-02-09] MEDS: Theophylline 80mg/15ml ORAL SCH ×3 (05:44→21:07)
[2018-02-09] MEDS: dilTIAZem HCl 60mg tab ORAL SCH ×3 (05:45→21:11)
[2018-02-09 07:31] LABS: ALANINE AMINOTRANSFERASE 20 U/L (12-78); ALBUMIN 2.4 G/DL (3.4-5.0); ALBUMIN/GLOBULIN RATIO 0.6 (1.0-2.7); ALKALINE PHOSPHATASE 66 U/L (46-116); ANION GAP 1 mmol/L (5-15); ASPARTATE AMINO TRANSFERASE 6 U/L (15-37); BILIRUBIN,TOTAL 0.3 MG/DL (0.2-1.0); BLOOD UREA NITROGEN 11 mg/dL (7-18); CALCIUM 8.4 MG/DL (8.5-10.1); CARBON DIOXIDE 38 MMOL/L (21-32); CHLORIDE 105 MMOL/L (98-107); CREATININE 0.6 MG/DL (0.55-1.30); POTASSIUM 4.4 MMOL/L (3.5-5.1); SODIUM 144 MMOL/L (136-145)
[2018-02-09 08:00] VITALS: BP 114/68
--- NOTE | 2018-02-09 08:46 | General Progress Note ---
Assessment/Plan Problem List: (1) COPD exacerbation ICD Codes: J44.1 - Chronic obstructive pulmonary disease with (acute) exacerbation SNOMED: 280952836 (2) HTN (hypertension) ICD Codes: I10 - Essential (primary) hypertension SNOMED: 29869543 (3) Hypoxia ICD Codes: R09.02 - Hypoxemia SNOMED: 751676439 (4) Elevated troponin ICD Codes: R74.8 - Abnormal levels of other serum enzymes SNOMED: 864509226, 899754970, 124822818 (5) Renal insufficiency ICD Codes: N28.9 - Disorder of kidney and ureter, unspecified SNOMED: 457616075, 320098934 (6) Respiratory failure ICD Codes: J96.90 - Respiratory failure, unspecified, unspecified whether with hypoxia or hypercapnia SNOMED: 338135600 Qualifiers: Qualified Codes: J96.02 - Acute respiratory failure with hypercapnia (7) Right lower lobe pneumonia ICD Codes: J18.1 - Lobar pneumonia, unspecified organism SNOMED: 396856011 Qualifiers: Qualified Codes: J18.1 - Lobar pneumonia, unspecified organism Status: stable, progressing Assessment/Plan resp care bipap at night resp rx wean steroids anxiolytics only if needed iv abx prn ativan dvt/stress ulcer prophylaxis Subjective ROS Limited/Unobtainable: No Constitutional: Reports: malaise, weakness HEENT: Reports: no symptoms Cardiovascular: Reports: no symptoms Respiratory: Reports: no symptoms Gastrointestinal/Abdominal: Reports: no symptoms Genitourinary: Reports: no symptoms Neurologic/Psychiatric: Reports: no symptoms Endocrine: Reports: no symptoms Hematologic/Lymphatic: Reports: no symptoms Allergies: Coded Allergies: No Known Allergies (Unverified , 12/10/15) All Systems: reviewed and negative except above Subjective no events. on nocturnal bipap. eating breakfast. no fever or chills. cxr clear Objective Last 24 Hour Vital Signs Date Time Temp Pulse Resp B/P (MAP) Pulse Ox O2 Delivery O2 Flow Rate FiO2 02/09/18 08:00 97.3 99 20 114/68 (83) 99 97.3 02/09/18 07:38 98 35 96 Nasal Cannula 3.0 32 02/09/18 07:36 96 Nasal Cannula 3.0 32 02/09/18 07:36 Nasal Cannula 3.0 32 02/09/18 07:28 94 38 92 Bi-pap 30 02/09/18 05:45 99 128/73 02/09/18 05:05 96 30 96 Facial 30 02/09/18 04:00 98 02/09/18 04:00 96.3 89 18 133/71 (91) 94 96.3 02/09/18 03:25 102 28 98 Bi-pap 30 02/09/18 03:15 102 27 95 Bi-pap 30 02/09/18 03:14 102 27 95 Facial 30 02/09/18 01:10 108 29 97 Facial 30 02/09/18 00:00 105 02/09/18 00:00 97.4 99 19 128/73 (91) 95 97.4 02/08/18 23:12 105 25 97 Bi-pap 30 02/08/18 23:02 105 24 95 Bi-pap 30 02/08/18 23:00 105 24 95 Facial 30 02/08/18 21:42 105 134/81 02/08/18 21:00 Nasal Cannula 4.0 Nasal Cannula 4.0 02/08/18 20:00 97.5 105 18 134/81 (98) 94 97.5 02/08/18 20:00 105 02/08/18 19:44 105 20 99 Nasal Cannula 4.0 36 02/08/18 19:34 105 22 94 Nasal Cannula 4.0 36 02/08/18 19:33 Nasal Cannula 4.0 36 02/08/18 19:33 94 Nasal Cannula 4.0 36 02/08/18 17:10 89 20 Nasal Cannula 4.0 36 02/08/18 16:33 91 02/08/18 16:11 97.7 85 20 143/76 (98) 98 97.7 02/08/18 16:00 Nasal Cannula 4.0 Venturi Mask 02/08/18 15:31 88 22 98 Nasal Cannula 4.0 36 02/08/18 15:14 87 22 95 Nasal Cannula 4.0 36 02/08/18 13:47 98 132/84 02/08/18 13:39 95 02/08/18 12:10 30 02/08/18 12:00 Nasal Cannula 4.0 Venturi Mask 02/08/18 12:00 97.7 82 22 132/84 (100) 100 97.7 02/08/18 10:45 94 21 97 Nasal Cannula 4.0 36 02/08/18 10:43 96 02/08/18 10:41 96 26 96 Nasal Cannula 4.0 36 Intake and Output 02/08/18 02/09/18 19:00 07:00 Intake Total 260 ml Output Total 1100 ml Balance 260 ml -1100 ml Intake Oral 260 ml Output Urine Total 1100 ml Laboratory Tests 02/09/18 06:30: Sodium Level 144, Potassium Level 4.4, Chloride Level 105, Carbon Dioxide Level 38H, Anion Gap 1L, Blood Urea Nitrogen 11, Creatinine 0.6, Estimat Glomerular Filtration Rate , Glucose Level 129H, Calcium Level 8.4L, Total Bilirubin 0.3, Aspartate Amino Transf (AST/SGOT) 6L, Alanine Aminotransferase (ALT/SGPT) 20, Alkaline Phosphatase 66, Total Protein 6.1L, Albumin 2.4L, Globulin 3.7, Albumin /Globulin Ratio 0.6L Height (Feet): 5 Height (Inches): 6.00 Weight (Pounds): 210 Objective General Appearance: WD/WN, alert Neck: supple Cardiovascular: regular rhythm Respiratory/Chest: lungs clear Abdomen: normal bowel sounds, non tender, soft, no organomegaly Edema: no edema noted Arm (L), no edema noted Arm (R), no edema noted Leg (L), no edema noted Leg (R), no edema noted Pedal (L), no edema noted Pedal (R), no edema noted Generalized Manan Byrd MD Feb 09, 2018 08:46
[2018-02-09] MEDS: Milk of Magnesia 30ml Ud ORAL SCH (09:01)
[2018-02-09] MEDS: Aspirin EC 81mg tab ORAL SCH (09:01)
[2018-02-09] MEDS: Docusate 100mg cap ORAL SCH (09:01)
[2018-02-09] MEDS: Solu-MEDROL 40mg Inj IVP SCH ×2 (09:02→21:07)
[2018-02-09] MEDS: Heparin 5000 units/ml inj SUBQ SCH ×2 (09:05→21:07)
--- NOTE | 2018-02-09 09:09 | Critical Care Progress Note ---
Assessment/Plan Assessment/Plan IMPRESSION: Acute respiratory failure, COPD with acute exacerbation, respiratory acidosis and associated hypoxemia, cardiomegaly, possible mild pulmonary edema, possible underlying pneumonia, protein-calorie malnutrition. PLAN respiratory care noted off vent BIPAp as needed; seems improved IV antibiotics supportive care monitor closely for now avoid sedation as able d/w RN; monitor in RAMSES for now hope to see improvement of acid base medications/laboratory data/nursing notes reviewed in detail note reviewed and edited care discussed with RN and RT Critical Care - Subjective Interval Events: care noted no distress on oxygen NC was on BIPAP Condition: improving EKG Rhythm: Sinus Rhythm I&O: Intake and Output 02/08/18 02/09/18 19:00 07:00 Intake Total 260 ml Output Total 1100 ml Balance 260 ml -1100 ml Intake Oral 260 ml Output Urine Total 1100 ml Critical Care - Objective ET-Tube: 7.5 ET Position: 24 Last 24 Hour Vital Signs Date Time Temp Pulse Resp B/P (MAP) Pulse Ox O2 Delivery O2 Flow Rate FiO2 02/09/18 08:00 97.3 99 20 114/68 (83) 99 97.3 02/09/18 07:38 98 35 96 Nasal Cannula 3.0 32 02/09/18 07:36 96 Nasal Cannula 3.0 32 02/09/18 07:36 Nasal Cannula 3.0 32 02/09/18 07:28 94 38 92 Bi-pap 30 02/09/18 05:45 99 128/73 02/09/18 05:05 96 30 96 Facial 30 02/09/18 04:00 98 02/09/18 04:00 96.3 89 18 133/71 (91) 94 96.3 02/09/18 03:25 102 28 98 Bi-pap 30 02/09/18 03:15 102 27 95 Bi-pap 30 02/09/18 03:14 102 27 95 Facial 30 02/09/18 01:10 108 29 97 Facial 30 02/09/18 00:00 105 02/09/18 00:00 97.4 99 19 128/73 (91) 95 97.4 02/08/18 23:12 105 25 97 Bi-pap 30 02/08/18 23:02 105 24 95 Bi-pap 30 02/08/18 23:00 105 24 95 Facial 30 02/08/18 21:42 105 134/81 02/08/18 21:00 Nasal Cannula 4.0 Nasal Cannula 4.0 02/08/18 20:00 97.5 105 18 134/81 (98) 94 97.5 02/08/18 20:00 105 02/08/18 19:44 105 20 99 Nasal Cannula 4.0 36 02/08/18 19:34 105 22 94 Nasal Cannula 4.0 36 02/08/18 19:33 Nasal Cannula 4.0 36 02/08/18 19:33 94 Nasal Cannula 4.0 36 02/08/18 17:10 89 20 Nasal Cannula 4.0 36 02/08/18 16:33 91 02/08/18 16:11 97.7 85 20 143/76 (98) 98 97.7 02/08/18 16:00 Nasal Cannula 4.0 Venturi Mask 02/08/18 15:31 88 22 98 Nasal Cannula 4.0 36 02/08/18 15:14 87 22 95 Nasal Cannula 4.0 36 02/08/18 13:47 98 132/84 02/08/18 13:39 95 02/08/18 12:10 30 02/08/18 12:00 Nasal Cannula 4.0 Venturi Mask 02/08/18 12:00 97.7 82 22 132/84 (100) 100 97.7 02/08/18 10:45 94 21 97 Nasal Cannula 4.0 36 02/08/18 10:43 96 02/08/18 10:41 96 26 96 Nasal Cannula 4.0 36 Labs: Laboratory Tests Test 02/09/18 06:30 Sodium Level 144 MMOL/L (136-145) Potassium Level 4.4 MMOL/L (3.5-5.1) Chloride Level 105 MMOL/L (98-107) Carbon Dioxide Level 38 MMOL/L (21-32) H Anion Gap 1 mmol/L (5-15) L Blood Urea Nitrogen 11 mg/dL (7-18) Creatinine 0.6 MG/DL (0.55-1.30) Estimat Glomerular Filtration Rate mL/min (>60) Glucose Level 129 MG/DL (74-106) H Calcium Level 8.4 MG/DL (8.5-10.1) L Total Bilirubin 0.3 MG/DL (0.2-1.0) Aspartate Amino Transf (AST/SGOT) 6 U/L (15-37) L Alanine Aminotransferase (ALT/SGPT) 20 U/L (12-78) Alkaline Phosphatase 66 U/L (46-116) Total Protein 6.1 G/DL (6.4-8.2) L Albumin 2.4 G/DL (3.4-5.0) L Globulin 3.7 g/dL Albumin/Globulin Ratio 0.6 (1.0-2.7) L Objective: GENERAL: awake NAD NECK: Supple. No adenopathy. No jugular venous distention. LUNGS: Moderate breath sounds. no rhonchi. No wheezes. reduced CARDIAC: S1 and S2. Regular rhythm without murmurs, rubs, or gallops. ABDOMEN: Soft, nontender, nondistended. no HSM EXTREMITIES: No cyanosis, clubbing, or edema. NEUROLOGIC: Grossly nonfocal, alert reviewed and examined Accucheck: 113 Mk Billings MD Feb 09, 2018 09:09
[2018-02-09] MEDS: Vancomycin 1250mg/D5W 250ml 250 ML IVPB SCH ×2 (11:23→21:12)
[2018-02-09 12:00] VITALS: BP 136/54
[2018-02-09 16:00] VITALS: BP 141/87
[2018-02-09 20:00] VITALS: BP 141/84
--- NOTE | 2018-02-09 23:00 | Progress Note ---
DATE: 02/09/2018 CARDIOLOGY PROGRESS NOTE SUBJECTIVE: The patient remains on BiPAP support at night. She is up and alert today. OBJECTIVE: VITAL SIGNS: Blood pressure 114/68, pulse 99, respirations 20, and afebrile. LUNGS: Bilateral breath sounds. No wheezing. HEART: Regular rhythm and rate. Normal S1, S2. ABDOMEN: Soft. EXTREMITIES: No edema. LABORATORY AND DIAGNOSTIC DATA: Sodium 144, potassium 4.4, bicarbonate 38, BUN 11, creatinine 0.6, albumin 2.4. IMPRESSION: 1. Acute on chronic respiratory acidosis. 2. Respiratory failure. 3. COPD exacerbation. 4. Compensatory and contraction metabolic alkalosis. 5. Acute myocardial ischemia, resolved. PLAN: 1. Off IV fluids. 2. Add Diamox to help stimulate respiratory drive. 3. BiPAP as needed. 4. IV antimicrobials. 5. Antiplatelet therapy. Ashvin Wu M.D. DR: FELICIANO JOB#: [id number] CC:
[2018-02-10] VITALS: BP 125/66
[2018-02-10] MEDS: Piperacillin/Tazobactam 3.375 GM in D5W 110 ML IVPB SCH ×4 (00:48→17:28)
[2018-02-10] MEDS: Albuterol/Ipratropium 3ml neb HHN SCH ×6 (03:06→22:42)
[2018-02-10 04:00] VITALS: BP 142/82
[2018-02-10] MEDS: Theophylline 80mg/15ml ORAL SCH ×3 (06:39→21:29)
[2018-02-10] MEDS: dilTIAZem HCl 60mg tab ORAL SCH ×3 (06:45→21:30)
--- NOTE | 2018-02-10 07:43 | Critical Care Progress Note ---
Assessment/Plan Assessment/Plan IMPRESSION: Acute respiratory failure, COPD with acute exacerbation, respiratory acidosis and associated hypoxemia, cardiomegaly, possible mild pulmonary edema, possible underlying pneumonia, protein-calorie malnutrition. PLAN respiratory care noted off vent BIPAp qhs- used x 4 hours last night IV antibiotics IV steroids supportive care monitor closely for now avoid sedation as able d/w RN; monitor as is and repeat abg hope to see improvement of acid base medications/laboratory data/nursing notes reviewed in detail note reviewed and edited care discussed with RN and RT Critical Care - Subjective Condition: stable EKG Rhythm: Sinus Rhythm I&O: Intake and Output 02/09/18 02/10/18 19:00 07:00 Intake Total 300 ml 360 ml Output Total 1200 ml 800 ml Balance -900 ml -440 ml Intake Oral 300 ml IV Total 360 ml Output Urine Total 1200 ml 800 ml # Bowel Movements 1 Critical Care - Objective ET-Tube: 7.5 ET Position: 24 Last 24 Hour Vital Signs Date Time Temp Pulse Resp B/P (MAP) Pulse Ox O2 Delivery O2 Flow Rate FiO2 02/10/18 07:29 97 22 98 Nasal Cannula 3.0 32 02/10/18 07:27 Nasal Cannula 3.0 32 02/10/18 07:27 96 Nasal Cannula 3.0 32 02/10/18 07:24 90 20 96 Nasal Cannula 3.0 32 02/10/18 06:45 100 161/90 02/10/18 04:00 87 02/10/18 04:00 97.4 87 20 142/82 (102) 98 97.4 02/10/18 03:27 96 26 98 Bi-pap 30 02/10/18 03:06 99 22 97 Bi-pap 30 02/10/18 03:00 99 26 99 Facial 30 02/10/18 00:56 101 27 97 Facial 30 02/10/18 00:00 97.3 84 20 125/66 (85) 98 97.3 02/10/18 00:00 91 02/09/18 22:57 98 23 98 Nasal Cannula 3.0 32 02/09/18 22:57 102 30 98 Facial 30 02/09/18 22:51 101 22 98 Nasal Cannula 3.0 32 02/09/18 21:11 102 146/83 02/09/18 21:00 Nasal Cannula 4.0 02/09/18 20:00 99.0 95 20 141/84 (103) 95 99.0 02/09/18 20:00 102 02/09/18 19:20 98 28 98 Nasal Cannula 3.0 32 02/09/18 19:00 Nasal Cannula 3.0 32 02/09/18 19:00 97 Nasal Cannula 3.0 32 02/09/18 18:57 96 28 97 Nasal Cannula 3.0 32 02/09/18 16:00 98.1 100 19 141/87 (105) 95 98.1 02/09/18 15:37 103 02/09/18 15:30 100 28 99 Nasal Cannula 3.0 32 02/09/18 15:23 99 28 99 Nasal Cannula 3.0 32 02/09/18 13:17 98 136/54 02/09/18 12:10 30 02/09/18 12:00 98.0 98 20 136/54 (81) 94 98.0 02/09/18 11:53 99 02/09/18 11:17 98 30 98 Nasal Cannula 3.0 32 02/09/18 11:09 97 31 95 Nasal Cannula 3.0 32 02/09/18 09:00 Nasal Cannula 4.0 Nasal Cannula 4.0 02/09/18 08:00 97.3 99 20 114/68 (83) 99 97.3 02/09/18 07:52 97 Labs: Labs Test 02/07/18 07:45 02/07/18 08:32 02/07/18 08:50 02/07/18 12:02 Sodium Level 147 MMOL/L (136-145) Potassium Level 4.7 MMOL/L (3.5-5.1) Chloride Level 108 MMOL/L (98-107) Carbon Dioxide Level 35 MMOL/L (21-32) Anion Gap 4 mmol/L (5-15) Blood Urea Nitrogen 19 mg/dL (7-18) Creatinine 0.8 MG/DL (0.55-1.30) Estimat Glomerular Filtration Rate mL/min (>60) Glucose Level 136 MG/DL (74-106) Calcium Level 8.7 MG/DL (8.5-10.1) Arterial Blood pH 7.250 (7.350-7.450) 7.309 (7.350-7.450) Arterial Blood Partial Pressure CO2 79.6 mmHg (35.0-45.0) 72.5 mmHg (35.0-45.0) Arterial Blood Partial Pressure O2 64.3 mmHg (75.0-100.0) 73.0 mmHg (75.0-100.0) Arterial Blood HCO3 34.1 mmol/L (22.0-26.0) 35.6 mmol/L (22.0-26.0) Arterial Blood Oxygen Saturation 91.1 % (95-100) 94.9 % (95-100) Arterial Blood Base Excess 3.9 (-2-2) 6.6 (-2-2) Tarun Test Positive Positive Vancomycin Level Trough 16.2 ug/mL (5.0-12.0) Test 02/08/18 05:10 02/08/18 07:02 02/09/18 06:30 White Blood Count 11.2 K/UL (4.8-10.8) Red Blood Count 4.86 M/UL (4.20-5.40) Hemoglobin 13.7 G/DL (12.0-16.0) Hematocrit 46.1 % (37.0-47.0) Mean Corpuscular Volume 95 FL (80-99) Mean Corpuscular Hemoglobin 28.2 PG (27.0-31.0) Mean Corpuscular Hemoglobin Concent 29.7 G/DL (32.0-36.0) Red Cell Distribution Width 14.7 % (11.6-14.8) Platelet Count 221 K/UL (150-450) Mean Platelet Volume 6.6 FL (6.5-10.1) Neutrophils (%) (Auto) % (45.0-75.0) Lymphocytes (%) (Auto) % (20.0-45.0) Monocytes (%) (Auto) % (1.0-10.0) Eosinophils (%) (Auto) % (0.0-3.0) Basophils (%) (Auto) % (0.0-2.0) Differential Total Cells Counted 100 Neutrophils % (Manual) 86 % (45-75) Lymphocytes % (Manual) 8 % (20-45) Monocytes % (Manual) 6 % (1-10) Eosinophils % (Manual) 0 % (0-3) Basophils % (Manual) 0 % (0-2) Band Neutrophils 0 % (0-8) Platelet Estimate Adequate Platelet Morphology Normal Red Blood Cell Morphology Normal Sodium Level 143 MMOL/L (136-145) 144 MMOL/L (136-145) Potassium Level 4.3 MMOL/L (3.5-5.1) 4.4 MMOL/L (3.5-5.1) Chloride Level 107 MMOL/L (98-107) 105 MMOL/L (98-107) Carbon Dioxide Level 36 MMOL/L (21-32) 38 MMOL/L (21-32) Anion Gap 1 mmol/L (5-15) 1 mmol/L (5-15) Blood Urea Nitrogen 15 mg/dL (7-18) 11 mg/dL (7-18) Creatinine 0.7 MG/DL (0.55-1.30) 0.6 MG/DL (0.55-1.30) Estimat Glomerular Filtration Rate mL/min (>60) mL/min (>60) Glucose Level 93 MG/DL (74-106) 129 MG/DL (74-106) Calcium Level 8.0 MG/DL (8.5-10.1) 8.4 MG/DL (8.5-10.1) Magnesium Level 1.9 MG/DL (1.8-2.4) Total Bilirubin 0.4 MG/DL (0.2-1.0) 0.3 MG/DL (0.2-1.0) Aspartate Amino Transf (AST/SGOT) 9 U/L (15-37) 6 U/L (15-37) Alanine Aminotransferase (ALT/SGPT) 22 U/L (12-78) 20 U/L (12-78) Alkaline Phosphatase 65 U/L (46-116) 66 U/L (46-116) Total Protein 5.6 G/DL (6.4-8.2) 6.1 G/DL (6.4-8.2) Albumin 2.3 G/DL (3.4-5.0) 2.4 G/DL (3.4-5.0) Globulin 3.3 g/dL 3.7 g/dL Albumin/Globulin Ratio 0.7 (1.0-2.7) 0.6 (1.0-2.7) Arterial Blood pH 7.336 (7.350-7.450) Arterial Blood Partial Pressure CO2 66.7 mmHg (35.0-45.0) Arterial Blood Partial Pressure O2 66.3 mmHg (75.0-100.0) Arterial Blood HCO3 34.9 mmol/L (22.0-26.0) Arterial Blood Oxygen Saturation 98.7 % (95-100) Arterial Blood Base Excess 6.6 (-2-2) Tarun Test Positive Objective: GENERAL: awake NAD NECK: Supple. No adenopathy. No jugular venous distention. LUNGS: Moderate breath sounds. no rhonchi. No wheezes. reduced CARDIAC: S1 and S2. Regular rhythm without murmurs, rubs, or gallops. ABDOMEN: Soft, nontender, nondistended. no HSM EXTREMITIES: No cyanosis, clubbing, or edema. NEUROLOGIC: Grossly nonfocal, alert reviewed and examined Accucheck: 133 Mk Billings MD Feb 10, 2018 07:43
[2018-02-10 08:00] VITALS: BP 138/81
[2018-02-10] MEDS: Solu-MEDROL 40mg Inj IVP SCH ×2 (09:02→21:26)
[2018-02-10] MEDS: Aspirin EC 81mg tab ORAL SCH (09:02)
[2018-02-10] MEDS: Docusate 100mg cap ORAL SCH (09:02)
[2018-02-10] MEDS: Milk of Magnesia 30ml Ud ORAL SCH (09:02)
[2018-02-10] MEDS: Heparin 5000 units/ml inj SUBQ SCH ×2 (09:03→21:28)
[2018-02-10] MEDS: Vancomycin 1250mg/D5W 250ml 250 ML IVPB SCH (10:13)
--- NOTE | 2018-02-10 10:57 | General Progress Note ---
Assessment/Plan Problem List: (1) COPD exacerbation ICD Codes: J44.1 - Chronic obstructive pulmonary disease with (acute) exacerbation SNOMED: 826676029 (2) HTN (hypertension) ICD Codes: I10 - Essential (primary) hypertension SNOMED: 82423814 (3) Hypoxia ICD Codes: R09.02 - Hypoxemia SNOMED: 404844617 (4) Elevated troponin ICD Codes: R74.8 - Abnormal levels of other serum enzymes SNOMED: 108991352, 126948136, 237643618 (5) Renal insufficiency ICD Codes: N28.9 - Disorder of kidney and ureter, unspecified SNOMED: 846792131, 835412528 (6) Respiratory failure ICD Codes: J96.90 - Respiratory failure, unspecified, unspecified whether with hypoxia or hypercapnia SNOMED: 059195019 Qualifiers: Qualified Codes: J96.02 - Acute respiratory failure with hypercapnia (7) Right lower lobe pneumonia ICD Codes: J18.1 - Lobar pneumonia, unspecified organism SNOMED: 166929530 Qualifiers: Qualified Codes: J18.1 - Lobar pneumonia, unspecified organism Status: stable, progressing Assessment/Plan resp care bipap at night resp rx wean steroids anxiolytics only if needed iv abx monitor closely per pulm prn ativan dvt/stress ulcer prophylaxis Subjective ROS Limited/Unobtainable: No Constitutional: Reports: malaise, weakness HEENT: Reports: no symptoms Cardiovascular: Reports: no symptoms Respiratory: Reports: cough, shortness of breath Gastrointestinal/Abdominal: Reports: no symptoms Genitourinary: Reports: no symptoms Neurologic/Psychiatric: Reports: pre-existing deficit Endocrine: Reports: no symptoms Hematologic/Lymphatic: Reports: no symptoms Allergies: Coded Allergies: No Known Allergies (Unverified , 12/10/15) All Systems: reviewed and negative except above Subjective no events. on bipap for 4 hrs last night. eating breakfast. no fever or chills. cxr clear Objective Last 24 Hour Vital Signs Date Time Temp Pulse Resp B/P (MAP) Pulse Ox O2 Delivery O2 Flow Rate FiO2 02/10/18 09:00 Nasal Cannula 4.0 02/10/18 08:00 97.7 85 20 138/81 (100) 94 97.7 02/10/18 07:51 96 02/10/18 07:29 97 22 98 Nasal Cannula 3.0 32 02/10/18 07:27 Nasal Cannula 3.0 32 02/10/18 07:27 96 Nasal Cannula 3.0 32 02/10/18 07:24 90 20 96 Nasal Cannula 3.0 32 02/10/18 06:45 100 161/90 02/10/18 04:00 87 02/10/18 04:00 97.4 87 20 142/82 (102) 98 97.4 02/10/18 03:27 96 26 98 Bi-pap 30 02/10/18 03:06 99 22 97 Bi-pap 30 02/10/18 03:00 99 26 99 Facial 30 02/10/18 00:56 101 27 97 Facial 30 02/10/18 00:00 97.3 84 20 125/66 (85) 98 97.3 02/10/18 00:00 91 02/09/18 22:57 98 23 98 Nasal Cannula 3.0 32 02/09/18 22:57 102 30 98 Facial 30 02/09/18 22:51 101 22 98 Nasal Cannula 3.0 32 02/09/18 21:11 102 146/83 02/09/18 21:00 Nasal Cannula 4.0 02/09/18 20:00 99.0 95 20 141/84 (103) 95 99.0 02/09/18 20:00 102 02/09/18 19:20 98 28 98 Nasal Cannula 3.0 32 02/09/18 19:00 Nasal Cannula 3.0 32 02/09/18 19:00 97 Nasal Cannula 3.0 32 02/09/18 18:57 96 28 97 Nasal Cannula 3.0 32 02/09/18 16:00 98.1 100 19 141/87 (105) 95 98.1 02/09/18 15:37 103 02/09/18 15:30 100 28 99 Nasal Cannula 3.0 32 02/09/18 15:23 99 28 99 Nasal Cannula 3.0 32 02/09/18 13:17 98 136/54 02/09/18 12:10 30 02/09/18 12:00 98.0 98 20 136/54 (81) 94 98.0 02/09/18 11:53 99 02/09/18 11:17 98 30 98 Nasal Cannula 3.0 32 02/09/18 11:09 97 31 95 Nasal Cannula 3.0 32 Intake and Output 10/13/18 10/14/18 19:00 07:00 Intake Total 300 ml 360 ml Output Total 1200 ml 800 ml Balance -900 ml -440 ml Intake Oral 300 ml IV Total 360 ml Output Urine Total 1200 ml 800 ml # Bowel Movements 1 Laboratory Tests 02/10/18 09:00: Vancomycin Level Trough 18.2H Height (Feet): 5 Height (Inches): 6.00 Weight (Pounds): 226 Objective General Appearance: WD/WN, alert Neck: supple Cardiovascular: regular rhythm Respiratory/Chest: lungs clear Abdomen: normal bowel sounds, non tender, soft, no organomegaly Edema: no edema noted Arm (L), no edema noted Arm (R), no edema noted Leg (L), no edema noted Leg (R), no edema noted Pedal (L), no edema noted Pedal (R), no edema noted Generalized Manan Byrd MD Feb 10, 2018 10:57
[2018-02-10 12:00] VITALS: BP 155/98
[2018-02-10 16:00] VITALS: BP 154/97
--- NOTE | 2018-02-10 16:30 | Progress Note ---
DATE: 02/10/2018 CARDIOLOGY PROGRESS NOTE SUBJECTIVE: The patient's condition is somewhat improved. She has been on BiPAP less frequently at night. She is tolerating oral intake. Monitored rhythm, sinus with occasional atrial ectopics. OBJECTIVE: VITAL SIGNS: Blood pressure 138/81 to 161/90, heart rate 85-102, respiratory rate 20-26, she remains afebrile. LUNGS: Coarse breath sounds. Scattered rhonchi. Few wheezing. HEART: Regular rhythm and rate. Normal S1, S2 with a fourth heart sound. ABDOMEN: Soft. EXTREMITIES: No edema. LABORATORY DATA: White count 11.2, hemoglobin 13.7. ABG, pH 7.34, pCO2 72, pO2 73. Sodium 144, potassium 4.4, bicarbonate 38, BUN 11, creatinine 0.6. Albumin 2.4. IMPRESSION: 1. COPD exacerbation. 2. Status post respiratory failure. 3. Acute on chronic respiratory acidosis, improving. 4. Compensatory metabolic alkalosis, worsening. 5. Healthcare-acquired pneumonia. 6. Severe protein-calorie malnutrition. PLAN: 1. Bronchodilators. 2. Respiratory hygiene. 3. Taper off BiPAP as tolerated. 4. Taper steroids as tolerated. 5. Anxiolytics as needed. 6. Continue acetazolamide to stimulate respiratory drive in the setting of metabolic alkalosis. 7. Check theophylline level. Neir Gaston JOB#: [id number] CC:
[2018-02-10] MEDS ORDERED: 1/2 NS 1000ml IV ONE (18:33)
[2018-02-10] MEDS ORDERED: NS 275ml ONE (18:33)
[2018-02-10 20:00] VITALS: BP 137/77
[2018-02-11] VITALS: BP 133/93
[2018-02-11] MEDS: Piperacillin/Tazobactam 3.375 GM in D5W 110 ML IVPB SCH ×5 (00:20→23:54)
[2018-02-11 04:00] VITALS: BP 142/79
[2018-02-11] MEDS: Albuterol/Ipratropium 3ml neb HHN SCH ×4 (04:02→15:29)
[2018-02-11] MEDS: Theophylline 80mg/15ml ORAL SCH ×3 (06:13→22:27)
[2018-02-11] MEDS: dilTIAZem HCl 60mg tab ORAL SCH ×3 (06:14→22:27)
[2018-02-11 08:00] VITALS: BP 137/74
--- NOTE | 2018-02-11 08:45 | Critical Care Progress Note ---
Assessment/Plan Assessment/Plan IMPRESSION: Acute respiratory failure, COPD with acute exacerbation, respiratory acidosis and associated hypoxemia, cardiomegaly, possible mild pulmonary edema, possible underlying pneumonia, protein-calorie malnutrition. PLAN respiratory care noted off vent BIPAp qhs- as able IV antibiotics IV steroids supportive care monitor closely for now avoid sedation as able \repeat abg hope to see improvement of acid base; monitor CO2 levels medications/laboratory data/nursing notes reviewed in detail note reviewed and edited care discussed with RN and RT Critical Care - Subjective Interval Events: retaining CO2 requires BIPAP used for short term last night ROS Limited/Unobtainable: Yes I&O: Intake and Output 02/10/18 02/11/18 19:00 07:00 Intake Total 110 ml 240 ml Output Total 2000 ml 2325 ml Balance -1890 ml -2085 ml Intake Oral 240 ml IV Total 110 ml Output Urine Total 2000 ml 2325 ml # Bowel Movements 2 1 Critical Care - Objective ET-Tube: 7.5 ET Position: 24 Last 24 Hour Vital Signs Date Time Temp Pulse Resp B/P (MAP) Pulse Ox O2 Delivery O2 Flow Rate FiO2 02/11/18 08:03 Nasal Cannula 3.0 32 02/11/18 08:03 95 Nasal Cannula 3.0 32 02/11/18 08:02 92 22 99 Nasal Cannula 32 02/11/18 08:01 97 22 96 Nasal Cannula 32 02/11/18 06:14 93 134/75 02/11/18 05:18 86 22 97 Facial 30 02/11/18 04:14 94 28 99 Bi-pap 30 02/11/18 04:01 92 27 96 Bi-pap 30 02/11/18 04:00 94 02/11/18 04:00 97.2 87 23 142/79 (100) 96 97.2 02/11/18 03:10 95 28 100 Facial 30 02/11/18 00:39 96 25 99 Facial 30 02/11/18 00:00 97.7 95 22 133/93 (106) 90 97.7 02/11/18 00:00 95 02/10/18 22:45 95 26 99 Bi-pap 30 02/10/18 22:40 94 24 96 Facial 30 02/10/18 22:38 94 24 97 Bi-pap 30 02/10/18 21:30 95 135/74 02/10/18 21:05 91 20 99 Nasal Cannula 3.0 32 02/10/18 21:00 Nasal Cannula 4.0 02/10/18 20:56 95 22 95 Nasal Cannula 3.0 32 02/10/18 20:54 95 Nasal Cannula 3.0 32 02/10/18 20:54 Nasal Cannula 3.0 32 02/10/18 20:00 97.2 95 20 137/77 (97) 94 97.2 02/10/18 20:00 96 02/10/18 16:00 97.7 85 20 154/97 (116) 95 97.7 02/10/18 15:30 102 02/10/18 15:21 94 22 98 Nasal Cannula 3.0 32 02/10/18 15:14 97 22 97 Bi-pap 30 02/10/18 14:23 101 138/81 02/10/18 12:18 101 27 97 Facial 30 02/10/18 12:10 30 02/10/18 12:00 97.7 95 20 155/98 (117) 98 97.7 02/10/18 11:44 100 02/10/18 11:13 92 20 97 Nasal Cannula 3.0 32 02/10/18 11:05 89 20 87 Room Air 21 02/10/18 09:00 Nasal Cannula 4.0 Labs: Laboratory Tests Test 02/10/18 09:00 02/10/18 11:55 02/11/18 06:45 02/11/18 08:30 Vancomycin Level Trough 18.2 ug/mL (5.0-12.0) H Arterial Blood pH 7.343 (7.350-7.450) 7.247 (7.350-7.450) Arterial Blood Partial Pressure CO2 72.3 mmHg (35.0-45.0) *H 89.0 mmHg (35.0-45.0) *H Arterial Blood Partial Pressure O2 72.8 mmHg (75.0-100.0) L 103.0 mmHg (75.0-100.0) H Arterial Blood HCO3 38.4 mmol/L (22.0-26.0) H 37.9 mmol/L (22.0-26.0) H Arterial Blood Oxygen Saturation 94.8 % (95-100) L 97.3 % (95-100) Arterial Blood Base Excess 9.5 (-2-2) *H 7.1 (-2-2) H Tarun Test Positive Positive Sodium Level Pending Potassium Level Pending Chloride Level Pending Carbon Dioxide Level Pending Blood Urea Nitrogen Pending Creatinine Pending Estimat Glomerular Filtration Rate Pending Glucose Level Pending Calcium Level Pending Total Bilirubin Pending Aspartate Amino Transf (AST/SGOT) Pending Alanine Aminotransferase (ALT/SGPT) Pending Alkaline Phosphatase Pending Pro-B-Type Natriuretic Peptide Pending Total Protein Pending Albumin Pending Globulin Pending Objective: GENERAL: awake on NC NAD NECK: Supple. No adenopathy. No jugular venous distention. LUNGS: Moderate breath sounds. no rhonchi. No wheezes. reduced CARDIAC: S1 and S2. Regular rhythm without murmurs, rubs, or gallops. ABDOMEN: Soft, nontender, nondistended. no HSM EXTREMITIES: No cyanosis, clubbing, or edema. NEUROLOGIC: Grossly nonfocal, alert reviewed and examined Accucheck: 123 Mk Billings MD Feb 11, 2018 08:45
[2018-02-11 08:49] LABS: ALANINE AMINOTRANSFERASE 9 U/L (12-78); ALBUMIN 2.5 G/DL (3.4-5.0); ALBUMIN/GLOBULIN RATIO 0.7 (1.0-2.7); ALKALINE PHOSPHATASE 68 U/L (46-116); ANION GAP 5 mmol/L (5-15); ASPARTATE AMINO TRANSFERASE 9 U/L (15-37); BILIRUBIN,TOTAL 0.2 MG/DL (0.2-1.0); BLOOD UREA NITROGEN 11 mg/dL (7-18); CALCIUM 8.9 MG/DL (8.5-10.1); CARBON DIOXIDE 29 MMOL/L (21-32); CHLORIDE 105 MMOL/L (98-107); CREATININE 0.7 MG/DL (0.55-1.30); POTASSIUM 4.4 MMOL/L (3.5-5.1); SODIUM 139 MMOL/L (136-145)
[2018-02-11] MEDS: Milk of Magnesia 30ml Ud ORAL SCH (09:00)
[2018-02-11] MEDS: Docusate 100mg cap ORAL SCH (09:00)
[2018-02-11] MEDS: Aspirin EC 81mg tab ORAL SCH (09:14)
[2018-02-11] MEDS: Solu-MEDROL 40mg Inj IVP SCH ×2 (09:15→21:20)
[2018-02-11] MEDS: Heparin 5000 units/ml inj SUBQ SCH ×2 (09:16→21:21)
[2018-02-11 09:17] LABS: HEMATOCRIT 47.7 % (37.0-47.0); HEMOGLOBIN 14.7 G/DL (12.0-16.0); MEAN CORPUSCULAR VOLUME 94 FL (80-99); PLATELET COUNT 262 K/UL (150-450); RED BLOOD COUNT 5.07 M/UL (4.20-5.40); RED CELL DISTRIBUTION WIDTH 14.4 % (11.6-14.8); WHITE BLOOD COUNT 11.2 K/UL (4.8-10.8)
[2018-02-11 12:00] VITALS: BP 131/76
--- NOTE | 2018-02-11 12:58 | General Progress Note ---
Assessment/Plan Problem List: (1) COPD exacerbation ICD Codes: J44.1 - Chronic obstructive pulmonary disease with (acute) exacerbation SNOMED: 152211757 (2) HTN (hypertension) ICD Codes: I10 - Essential (primary) hypertension SNOMED: 08979348 (3) Hypoxia ICD Codes: R09.02 - Hypoxemia SNOMED: 299407783 (4) Elevated troponin ICD Codes: R74.8 - Abnormal levels of other serum enzymes SNOMED: 383363132, 221246503, 131481472 (5) Renal insufficiency ICD Codes: N28.9 - Disorder of kidney and ureter, unspecified SNOMED: 096558693, 615802104 (6) Respiratory failure ICD Codes: J96.90 - Respiratory failure, unspecified, unspecified whether with hypoxia or hypercapnia SNOMED: 688014703 Qualifiers: Qualified Codes: J96.02 - Acute respiratory failure with hypercapnia (7) Right lower lobe pneumonia ICD Codes: J18.1 - Lobar pneumonia, unspecified organism SNOMED: 460617069 Qualifiers: Qualified Codes: J18.1 - Lobar pneumonia, unspecified organism Status: stable, not improved Assessment/Plan resp care bipap at night resp rx wean steroids anxiolytics only if needed iv abx monitor closely per pulm prn ativan dvt/stress ulcer prophylaxis not ready for dc Subjective ROS Limited/Unobtainable: No Constitutional: Reports: malaise, weakness HEENT: Reports: no symptoms Cardiovascular: Reports: no symptoms Respiratory: Reports: no symptoms Gastrointestinal/Abdominal: Reports: no symptoms Genitourinary: Reports: no symptoms Neurologic/Psychiatric: Reports: pre-existing deficit Endocrine: Reports: no symptoms Hematologic/Lymphatic: Reports: no symptoms Allergies: Coded Allergies: No Known Allergies (Unverified , 12/10/15) All Systems: reviewed and negative except above Subjective no events. awake but drowsy. follows commands. answers question Objective Last 24 Hour Vital Signs Date Time Temp Pulse Resp B/P (MAP) Pulse Ox O2 Delivery O2 Flow Rate FiO2 02/11/18 11:46 86 24 97 Facial 30 02/11/18 11:37 94 24 96 Bi-pap 30 02/11/18 11:37 94 24 96 Bi-pap 32 02/11/18 09:12 92 22 99 Nasal Cannula 32 02/11/18 09:12 97 22 96 Nasal Cannula 32 02/11/18 09:00 Nasal Cannula 4.0 02/11/18 08:03 Nasal Cannula 3.0 32 02/11/18 08:03 95 Nasal Cannula 3.0 32 02/11/18 08:02 92 22 99 Nasal Cannula 32 02/11/18 08:01 97 22 96 Nasal Cannula 32 02/11/18 08:00 97.7 90 18 137/74 (95) 98 97.7 02/11/18 07:54 95 02/11/18 06:14 93 134/75 02/11/18 05:18 86 22 97 Facial 30 02/11/18 04:14 94 28 99 Bi-pap 30 02/11/18 04:01 92 27 96 Bi-pap 30 02/11/18 04:00 94 02/11/18 04:00 97.2 87 23 142/79 (100) 96 97.2 02/11/18 03:10 95 28 100 Facial 30 02/11/18 00:39 96 25 99 Facial 30 02/11/18 00:00 97.7 95 22 133/93 (106) 90 97.7 02/11/18 00:00 95 02/10/18 22:45 95 26 99 Bi-pap 30 02/10/18 22:40 94 24 96 Facial 30 02/10/18 22:38 94 24 97 Bi-pap 30 02/10/18 21:30 95 135/74 02/10/18 21:05 91 20 99 Nasal Cannula 3.0 32 02/10/18 21:00 Nasal Cannula 4.0 02/10/18 20:56 95 22 95 Nasal Cannula 3.0 32 02/10/18 20:54 95 Nasal Cannula 3.0 32 02/10/18 20:54 Nasal Cannula 3.0 32 02/10/18 20:00 97.2 95 20 137/77 (97) 94 97.2 02/10/18 20:00 96 02/10/18 16:00 97.7 85 20 154/97 (116) 95 97.7 02/10/18 15:30 102 02/10/18 15:21 94 22 98 Nasal Cannula 3.0 32 02/10/18 15:14 97 22 97 Bi-pap 30 02/10/18 14:23 101 138/81 Intake and Output 02/10/18 02/11/18 19:00 07:00 Intake Total 110 ml 240 ml Output Total 2000 ml 2325 ml Balance -1890 ml -2085 ml Intake Oral 240 ml IV Total 110 ml Output Urine Total 2000 ml 2325 ml # Bowel Movements 2 1 Laboratory Tests 02/11/18 06:45: Sodium Level 139, Potassium Level 4.4, Chloride Level 105, Carbon Dioxide Level 29, Anion Gap 5, Blood Urea Nitrogen 11, Creatinine 0.7, Estimat Glomerular Filtration Rate , Glucose Level 127H, Calcium Level 8.9, Total Bilirubin 0.2, Aspartate Amino Transf (AST/SGOT) 9L, Alanine Aminotransferase (ALT/SGPT) 9L, Alkaline Phosphatase 68, Pro-B-Type Natriuretic Peptide 526H, Total Protein 6.3L , Albumin 2.5L, Globulin 3.8, Albumin/Globulin Ratio 0.7L 02/11/18 08:30: Arterial Blood pH 7.247*L, Arterial Blood Partial Pressure CO2 89.0*H, Arterial Blood Partial Pressure O2 103.0H, Arterial Blood HCO3 37.9H, Arterial Blood Oxygen Saturation 97.3, Arterial Blood Base Excess 7.1H, Tarun Test Positive 02/11/18 09:00: White Blood Count 11.2H, Red Blood Count 5.07, Hemoglobin 14.7, Hematocrit 47.7H , Mean Corpuscular Volume 94, Mean Corpuscular Hemoglobin 29.1, Mean Corpuscular Hemoglobin Concent 30.9L, Red Cell Distribution Width 14.4, Platelet Count 262, Mean Platelet Volume 6.5, Neutrophils (%) (Auto) , Lymphocytes (%) (Auto) , Monocytes (%) (Auto) , Eosinophils (%) (Auto) , Basophils (%) (Auto) , Differential Total Cells Counted 100, Neutrophils % ( Manual) 93H, Lymphocytes % (Manual) 6L, Monocytes % (Manual) 1, Eosinophils % ( Manual) 0, Basophils % (Manual) 0, Band Neutrophils 0, Platelet Estimate Adequate, Platelet Morphology Normal, Red Blood Cell Morphology Normal Height (Feet): 5 Height (Inches): 6.00 Weight (Pounds): 226 Objective General Appearance: WD/WN, alert Neck: supple Cardiovascular: regular rhythm Respiratory/Chest: lungs clear Abdomen: normal bowel sounds, non tender, soft, no organomegaly Edema: no edema noted Arm (L), no edema noted Arm (R), no edema noted Leg (L), no edema noted Leg (R), no edema noted Pedal (L), no edema noted Pedal (R), no edema noted Generalized Manan Byrd MD Feb 11, 2018 12:58
[2018-02-11 16:00] VITALS: BP 146/90
[2018-02-11 20:00] VITALS: BP 124/75
[2018-02-12] VITALS (12 sets, daily range): BP systolic 130–188; BP diastolic 73–107
--- NOTE | 2018-02-12 01:15 | Progress Note ---
DATE: 02/11/2018 CARDIOLOGY PROGRESS NOTE SUBJECTIVE: The patient is awake and follows commands. Answers questions, but is drowsy and slow to response. No nausea or vomiting. No shortness of breath or chest pain. She continues to require BiPAP at night. She remains on steroids with cautious taper. PHYSICAL EXAMINATION: VITAL SIGNS: Blood pressure 137/74 to 146/90, heart rate 84, respiratory rate 24, afebrile. LUNGS: Coarse breath sounds. HEART: Regular rhythm and rate. Normal S1 and S2. ABDOMEN: Soft. EXTREMITIES: No edema. LABORATORY AND DIAGNOSTIC DATA: White count 11.2, hemoglobin 14.7. Sodium 139, potassium 4.4, bicarbonate 29, BUN 11, and creatinine 0.7. Pro-natriuretic peptide 526. Albumin 2.5. ABG, pH 7.25, 89, 103. IMPRESSION: 1. Acute on chronic respiratory acidosis. 2. Acute on chronic respiratory failure. 3. Chronic obstructive pulmonary disease exacerbation. 4. Compensatory metabolic alkalosis, improved with Diamox. 5. Acute myocardial ischemia due to respiratory insufficiency. 6. Hypoxia. 7. Coronary hypoperfusion. PLAN: 1. BiPAP support. 2. Monitor acid-base parameters. 3. Continue Diamox. 4. May need to discontinue metabolic parameters. 5. Adjust DVT and stress ulcer prophylaxis. 6. Steroids per primary care physician. 7. Monitor volume status. 8. Assess parameters for diuresis as needed. Ashvin Wu M.D. DR: Jazlyn JOB#: [id number] CC:
[2018-02-12] MEDS: Theophylline 80mg/15ml ORAL SCH ×3 (05:39→21:27)
[2018-02-12] MEDS: dilTIAZem HCl 60mg tab ORAL SCH ×3 (05:39→21:27)
[2018-02-12] MEDS: Piperacillin/Tazobactam 3.375 GM in D5W 110 ML IVPB SCH ×3 (05:39→18:00)
[2018-02-12] MEDS: Aspirin EC 81mg tab ORAL SCH (08:40)
[2018-02-12] MEDS: Solu-MEDROL 40mg Inj IVP SCH (08:40)
[2018-02-12] MEDS: Docusate 100mg cap ORAL SCH (08:40)
[2018-02-12] MEDS: Milk of Magnesia 30ml Ud ORAL SCH (08:40)
[2018-02-12] MEDS: Heparin 5000 units/ml inj SUBQ SCH ×2 (08:42→21:00)
--- NOTE | 2018-02-12 09:18 | General Progress Note ---
Assessment/Plan Problem List: (1) COPD exacerbation ICD Codes: J44.1 - Chronic obstructive pulmonary disease with (acute) exacerbation SNOMED: 322389432 (2) HTN (hypertension) ICD Codes: I10 - Essential (primary) hypertension SNOMED: 31001516 (3) Hypoxia ICD Codes: R09.02 - Hypoxemia SNOMED: 516182987 (4) Elevated troponin ICD Codes: R74.8 - Abnormal levels of other serum enzymes SNOMED: 927603918, 150800571, 411736330 (5) Renal insufficiency ICD Codes: N28.9 - Disorder of kidney and ureter, unspecified SNOMED: 893450731, 418562588 (6) Respiratory failure ICD Codes: J96.90 - Respiratory failure, unspecified, unspecified whether with hypoxia or hypercapnia SNOMED: 978513942 Qualifiers: Qualified Codes: J96.02 - Acute respiratory failure with hypercapnia (7) Right lower lobe pneumonia ICD Codes: J18.1 - Lobar pneumonia, unspecified organism SNOMED: 889752733 Qualifiers: Qualified Codes: J18.1 - Lobar pneumonia, unspecified organism Status: stable Assessment/Plan resp care bipap at night and prn resp rx wean steroids per pulm anxiolytics only if needed iv abx monitor closely per pulm check abg prn ativan dvt/stress ulcer prophylaxis not ready for dc Subjective ROS Limited/Unobtainable: Yes Constitutional: Reports: malaise, weakness HEENT: Reports: no symptoms Cardiovascular: Reports: no symptoms Respiratory: Reports: cough, shortness of breath Gastrointestinal/Abdominal: Reports: no symptoms Genitourinary: Reports: no symptoms Neurologic/Psychiatric: Reports: pre-existing deficit Endocrine: Reports: no symptoms Hematologic/Lymphatic: Reports: no symptoms Allergies: Coded Allergies: No Known Allergies (Unverified , 12/10/15) All Systems: reviewed and negative except above Subjective no events. awake but drowsy. follows commands. answers question on bipap. stable sob. no distress Objective Last 24 Hour Vital Signs Date Time Temp Pulse Resp B/P (MAP) Pulse Ox O2 Delivery O2 Flow Rate FiO2 02/12/18 08:00 97.5 85 18 130/73 (92) 98 97.5 02/12/18 06:52 96 Nasal Cannula 3.0 32 02/12/18 06:52 Nasal Cannula 3.0 32 02/12/18 05:39 84 146/86 02/12/18 05:36 80 16 96 Full Face 30 02/12/18 04:00 85 02/12/18 04:00 97.1 84 16 146/86 (106) 93 97.1 02/12/18 03:29 81 27 94 Facial 30 02/12/18 01:26 79 20 95 Facial 30 02/12/18 00:00 97.0 80 19 156/89 (111) 96 97.0 02/12/18 00:00 85 02/11/18 23:19 70 20 95 Facial 30 02/11/18 22:27 84 124/75 02/11/18 21:15 75 20 95 Facial 30 02/11/18 21:00 Bi-pap 02/11/18 20:00 73 02/11/18 20:00 97.0 84 15 124/75 (91) 97 97.0 02/11/18 19:05 95 Bi-pap 30 02/11/18 19:05 72 19 95 Facial 30 02/11/18 19:05 Bi-pap 30 02/11/18 17:19 94 24 96 Facial 30 02/11/18 16:00 97.3 84 24 146/90 (108) 98 97.3 02/11/18 15:34 78 02/11/18 15:29 94 14 96 Facial 30 02/11/18 15:29 94 14 96 Bi-pap 30 02/11/18 15:29 94 14 96 Bi-pap 30 02/11/18 14:35 86 137/74 02/11/18 13:33 86 21 97 Facial 30 02/11/18 12:10 30 02/11/18 12:00 97.9 85 12 131/76 (94) 96 97.9 02/11/18 11:46 82 02/11/18 11:46 86 24 97 Facial 30 02/11/18 11:37 94 24 96 Bi-pap 30 02/11/18 11:37 94 24 96 Bi-pap 32 Intake and Output 02/11/18 02/12/18 19:00 07:00 Intake Total 120 ml Output Total 1200 ml 1100 ml Balance -1200 ml -980 ml Intake Oral 120 ml Output Urine Total 1200 ml 1100 ml # Bowel Movements 1 Height (Feet): 5 Height (Inches): 6.00 Weight (Pounds): 215 Objective General Appearance: WD/WN, alert Neck: supple Cardiovascular: regular rhythm Respiratory/Chest: lungs clear Abdomen: normal bowel sounds, non tender, soft, no organomegaly Edema: no edema noted Arm (L), no edema noted Arm (R), no edema noted Leg (L), no edema noted Leg (R), no edema noted Pedal (L), no edema noted Pedal (R), no edema noted Generalized Manan Byrd MD Feb 12, 2018 09:18
--- NOTE | 2018-02-12 10:40 | Critical Care Progress Note ---
Assessment/Plan Assessment/Plan IMPRESSION: Acute respiratory failure, COPD with acute exacerbation, respiratory acidosis and associated hypoxemia, cardiomegaly, possible mild pulmonary edema, possible underlying pneumonia, protein-calorie malnutrition. PLAN respiratory care noted off vent BIPAp qhs- needed at present; repeat ABG; d/w RN IV antibiotics IV steroids increased supportive care monitor closely for now currently worse and may need transfer back to [facility] medications/laboratory data/nursing notes reviewed in detail note reviewed and edited care discussed with RN and RT patient remains in poor condition; worsening co2 retention on BIPAP; called for urgent intubation total time spent x 50 minutes in evaluation/discussion/review of labs Critical Care - Subjective Interval Events: worsening CO2 retention off BIPAP reduced LOC EKG Rhythm: Sinus Rhythm I&O: Intake and Output 02/11/18 02/12/18 19:00 07:00 Intake Total 120 ml Output Total 1200 ml 1100 ml Balance -1200 ml -980 ml Intake Oral 120 ml Output Urine Total 1200 ml 1100 ml # Bowel Movements 1 Critical Care - Objective ET-Tube: 7.5 ET Position: 24 Last 24 Hour Vital Signs Date Time Temp Pulse Resp B/P (MAP) Pulse Ox O2 Delivery O2 Flow Rate FiO2 02/12/18 09:00 Nasal Cannula 4.0 02/12/18 08:00 97.5 85 18 130/73 (92) 98 97.5 02/12/18 07:33 81 02/12/18 06:52 96 Nasal Cannula 3.0 32 02/12/18 06:52 Nasal Cannula 3.0 32 02/12/18 05:39 84 146/86 02/12/18 05:36 80 16 96 Full Face 30 02/12/18 04:00 85 02/12/18 04:00 97.1 84 16 146/86 (106) 93 97.1 02/12/18 03:29 81 27 94 Facial 30 02/12/18 01:26 79 20 95 Facial 30 02/12/18 00:00 97.0 80 19 156/89 (111) 96 97.0 02/12/18 00:00 85 02/11/18 23:19 70 20 95 Facial 30 02/11/18 22:27 84 124/75 02/11/18 21:15 75 20 95 Facial 30 02/11/18 21:00 Bi-pap 02/11/18 20:00 73 02/11/18 20:00 97.0 84 15 124/75 (91) 97 97.0 02/11/18 19:05 95 Bi-pap 30 02/11/18 19:05 72 19 95 Facial 30 02/11/18 19:05 Bi-pap 30 02/11/18 17:19 94 24 96 Facial 30 02/11/18 16:00 97.3 84 24 146/90 (108) 98 97.3 02/11/18 15:34 78 02/11/18 15:29 94 14 96 Facial 30 02/11/18 15:29 94 14 96 Bi-pap 30 02/11/18 15:29 94 14 96 Bi-pap 30 02/11/18 14:35 86 137/74 02/11/18 13:33 86 21 97 Facial 30 02/11/18 12:10 30 02/11/18 12:00 97.9 85 12 131/76 (94) 96 97.9 02/11/18 11:46 82 02/11/18 11:46 86 24 97 Facial 30 02/11/18 11:37 94 24 96 Bi-pap 30 02/11/18 11:37 94 24 96 Bi-pap 32 Labs: Labs Test 02/10/18 09:00 02/10/18 11:55 02/11/18 06:45 02/11/18 08:30 Vancomycin Level Trough 18.2 ug/mL (5.0-12.0) Arterial Blood pH 7.343 (7.350-7.450) 7.247 (7.350-7.450) Arterial Blood Partial Pressure CO2 72.3 mmHg (35.0-45.0) 89.0 mmHg (35.0-45.0) Arterial Blood Partial Pressure O2 72.8 mmHg (75.0-100.0) 103.0 mmHg (75.0-100.0) Arterial Blood HCO3 38.4 mmol/L (22.0-26.0) 37.9 mmol/L (22.0-26.0) Arterial Blood Oxygen Saturation 94.8 % (95-100) 97.3 % (95-100) Arterial Blood Base Excess 9.5 (-2-2) 7.1 (-2-2) Tarun Test Positive Positive Sodium Level 139 MMOL/L (136-145) Potassium Level 4.4 MMOL/L (3.5-5.1) Chloride Level 105 MMOL/L (98-107) Carbon Dioxide Level 29 MMOL/L (21-32) Anion Gap 5 mmol/L (5-15) Blood Urea Nitrogen 11 mg/dL (7-18) Creatinine 0.7 MG/DL (0.55-1.30) Estimat Glomerular Filtration Rate mL/min (>60) Glucose Level 127 MG/DL (74-106) Calcium Level 8.9 MG/DL (8.5-10.1) Total Bilirubin 0.2 MG/DL (0.2-1.0) Aspartate Amino Transf (AST/SGOT) 9 U/L (15-37) Alanine Aminotransferase (ALT/SGPT) 9 U/L (12-78) Alkaline Phosphatase 68 U/L (46-116) Pro-B-Type Natriuretic Peptide 526 pg/mL (0-125) Total Protein 6.3 G/DL (6.4-8.2) Albumin 2.5 G/DL (3.4-5.0) Globulin 3.8 g/dL Albumin/Globulin Ratio 0.7 (1.0-2.7) Test 02/11/18 09:00 White Blood Count 11.2 K/UL (4.8-10.8) Red Blood Count 5.07 M/UL (4.20-5.40) Hemoglobin 14.7 G/DL (12.0-16.0) Hematocrit 47.7 % (37.0-47.0) Mean Corpuscular Volume 94 FL (80-99) Mean Corpuscular Hemoglobin 29.1 PG (27.0-31.0) Mean Corpuscular Hemoglobin Concent 30.9 G/DL (32.0-36.0) Red Cell Distribution Width 14.4 % (11.6-14.8) Platelet Count 262 K/UL (150-450) Mean Platelet Volume 6.5 FL (6.5-10.1) Neutrophils (%) (Auto) % (45.0-75.0) Lymphocytes (%) (Auto) % (20.0-45.0) Monocytes (%) (Auto) % (1.0-10.0) Eosinophils (%) (Auto) % (0.0-3.0) Basophils (%) (Auto) % (0.0-2.0) Differential Total Cells Counted 100 Neutrophils % (Manual) 93 % (45-75) Lymphocytes % (Manual) 6 % (20-45) Monocytes % (Manual) 1 % (1-10) Eosinophils % (Manual) 0 % (0-3) Basophils % (Manual) 0 % (0-2) Band Neutrophils 0 % (0-8) Platelet Estimate Adequate Platelet Morphology Normal Red Blood Cell Morphology Normal Objective: GENERAL: on NC NAD; reduced LOC NECK: Supple. No adenopathy. No jugular venous distention. LUNGS: Moderate breath sounds. no rhonchi. No wheezes. reduced CARDIAC: S1 and S2. Regular rhythm without murmurs, rubs, or gallops. ABDOMEN: Soft, nontender, nondistended. no HSM EXTREMITIES: No cyanosis, clubbing, or edema. NEUROLOGIC: Grossly nonfocal, alert reviewed and examined Accucheck: 109 Mk Billings MD Feb 12, 2018 10:40
[2018-02-12] MEDS ORDERED: Solu-MEDROL 125mg Inj IVP SCH (14:00)
--- NOTE | 2018-02-12 15:55 | Emergency Room Report ---
History of Present Illness General Chief Complaint: Dyspnea/Respdistress Source: Medical Record Present Illness HPI I was contacted by Dr. Billings to intubate the patient. Patient apparently had evidence of respiratory distress. Patient had been intubated in the past. When I arrived I was unable to obtain any history from the patient as patient appears somnolent and showing evidence of respiratory distress and impending respiratory failure. No further history is available at this time as patient require intubation. Allergies: Coded Allergies: No Known Allergies (Unverified , 12/10/15) Patient History Now: No Nursing Documentation-[facility] Past Medical History: No History, Except For Hx Cardiac Problems: Yes Hx Hypertension: Yes Hx Asthma: Yes Hx COPD: Yes Hx Diabetes: Yes Hx Cancer: No Hx Gastrointestinal Problems: Yes Hx Neurological Problems: No Hx Seizures: Yes Physical Exam General Appearance: severe distress Head: normocephalic Eyes: bilateral eye normal inspection ENT: dry mucus membranes Neck: supple Respiratory: decreased breath sounds, accessory muscle use Cardiovascular #1: regular rate, rhythm Gastrointestinal: soft Musculoskeletal: normal inspection Skin: normal color Procedures Intubation Intubation : Consent: Emergent Intubation Method: orotracheal Tube Size (cm): 7.5 Medications: Etomidate, Rocuronium Breath Sounds after Intubation: equal Intubation Complications: no complications Post Intubation Xray: Yes Attempts: One Patient Tolerated: Well Complications: None Medical Decision Making Diagnostic Impression: Primary Impression: Respiratory failure Qualified Codes: J96.02 - Acute respiratory failure with hypercapnia ER Course Patient was showing evidence respiratory failure. Patient require emergent intubation. Patient was intubated. Chest x-ray shows ET tube in good position. Case was signed back to Dr. Victoriano Billings for further treatment. Last Vital Signs Date Time Temp Pulse Resp B/P (MAP) Pulse Ox O2 Delivery O2 Flow Rate FiO2 02/12/18 13:20 71 16 95 Full Face 30 02/12/18 12:00 97.7 130/78 (95) 97.7 02/12/18 09:00 4.0 Status: improved Disposition: ADMITTED INPATIENT Condition: Critical Referrals: Kelsey Smith MD (PCP) Celestino Bazzi MD Feb 12, 2018 15:55
--- NOTE | 2018-02-12 16:40 | Diagnostic Imaging Report ---
Indication: Shortness of breath, status post intubation Technique: One view of the chest Comparison: 02/08/2018 Findings: Interim endotracheal intubation, endotracheal tube tip projecting just below the thoracic inlet and approximately 7 cm above the mariano. Interim marked improvement in previously demonstrated bilateral pleural effusions and basilar parenchymal opacities. There may be a small amount of residual infiltrate at the right lung base and a small amount of pleural fluid on the left. The heart size is normal. Impression: Satisfactory endotracheal intubation Improved bilateral pleural and parenchymal opacities, over 4 days
[2018-02-12] MEDS: D5 1/2NS 1,000 ML IV SCH (20:00)
[2018-02-12] MEDS: LORazepam Inj 2mg/ml 1ml IV PRN ×2 (20:58→23:12)
[2018-02-12] MEDS: Solu-MEDROL 125mg Inj IVP SCH (21:27)
[2018-02-13] VITALS (24 sets, daily range): BP systolic 109–158; BP diastolic 63–94
--- NOTE | 2018-02-13 02:30 | Progress Note ---
DATE: 02/12/2018 Cardiology Progress Note SUBJECTIVE: Condition was deteriorated. Acid-base parameters have worsened. The patient is required intubation and mechanical ventilation again. She could not adequately ventilate on BiPAP support. OBJECTIVE: VITAL SIGNS: Blood pressure 156/90, pulse 86, respiratory rate 12, and afebrile. Monitored rhythm sinus. GENERAL: ABG prior to intubation, 7.16, 105, 68. LUNGS: Bilateral breath sounds. Scattered rhonchi and wheezing. HEART: Regular rhythm and rate. Normal S1 and S2 with a fourth heart sound. ABDOMEN: Soft. Trace edema. LABORATORY DATA: No new laboratories. Chest x-ray reveals bilateral pleural and parenchymal opacities post intubation. IMPRESSION: 1. Acute respiratory failure. 2. Acute on chronic respiratory acidosis. 3. Healthcare-acquired pneumonia. 4. Status post acute myocardial infarction. 5. Chronic obstructive pulmonary disease exacerbation. 6. Hypoxia. 7. Protein calorie malnutrition. 8. Acute on chronic diastolic congestive heart failure. PLAN: 1. Repeat laboratory studies including troponin levels. 2. Periodic diuresis based on clinical parameters. 3. Antimicrobials, steroids, and bronchodilators tracheostomy. Ashvin Wu M.D. DR: OLGA LIDIA JOB#: [id number] CC:
[2018-02-13 04:21] LABS: HEMATOCRIT 52.9 % (37.0-47.0); HEMOGLOBIN 15.9 G/DL (12.0-16.0); MEAN CORPUSCULAR VOLUME 92 FL (80-99); PLATELET COUNT 248 K/UL (150-450); RED BLOOD COUNT 5.73 M/UL (4.20-5.40); RED CELL DISTRIBUTION WIDTH 14.1 % (11.6-14.8); WHITE BLOOD COUNT 9.6 K/UL (4.8-10.8)
[2018-02-13 04:47] LABS: ALANINE AMINOTRANSFERASE 15 U/L (12-78); ALBUMIN 2.5 G/DL (3.4-5.0); ALBUMIN/GLOBULIN RATIO 0.7 (1.0-2.7); ALKALINE PHOSPHATASE 65 U/L (46-116); ANION GAP 4 mmol/L (5-15); ASPARTATE AMINO TRANSFERASE 8 U/L (15-37); BILIRUBIN,TOTAL 0.4 MG/DL (0.2-1.0); BLOOD UREA NITROGEN 23 mg/dL (7-18); CALCIUM 9.6 MG/DL (8.5-10.1); CARBON DIOXIDE 31 MMOL/L (21-32); CHLORIDE 106 MMOL/L (98-107); CREATININE 0.8 MG/DL (0.55-1.30); POTASSIUM 3.6 MMOL/L (3.5-5.1); SODIUM 141 MMOL/L (136-145)
[2018-02-13] MEDS: Solu-MEDROL 125mg Inj IVP SCH ×3 (06:02→21:49)
[2018-02-13] MEDS: Piperacillin/Tazobactam 3.375 GM in D5W 110 ML IVPB SCH ×5 (06:02→21:49)
[2018-02-13] MEDS: Theophylline 80mg/15ml ORAL SCH ×3 (06:03→21:49)
[2018-02-13] MEDS: dilTIAZem HCl 60mg tab ORAL SCH ×3 (06:03→21:48)
[2018-02-13] MEDS: LORazepam Inj 2mg/ml 1ml IV PRN ×3 (06:03→18:29)
--- NOTE | 2018-02-13 08:11 | General Progress Note ---
Assessment/Plan Problem List: (1) COPD exacerbation ICD Codes: J44.1 - Chronic obstructive pulmonary disease with (acute) exacerbation SNOMED: 167049078 (2) HTN (hypertension) ICD Codes: I10 - Essential (primary) hypertension SNOMED: 80093195 (3) Hypoxia ICD Codes: R09.02 - Hypoxemia SNOMED: 734235311 (4) Elevated troponin ICD Codes: R74.8 - Abnormal levels of other serum enzymes SNOMED: 428519776, 713868375, 362886864 (5) Renal insufficiency ICD Codes: N28.9 - Disorder of kidney and ureter, unspecified SNOMED: 104601171, 598112700 (6) Respiratory failure ICD Codes: J96.90 - Respiratory failure, unspecified, unspecified whether with hypoxia or hypercapnia SNOMED: 959459227 Qualifiers: Qualified Codes: J96.02 - Acute respiratory failure with hypercapnia (7) Right lower lobe pneumonia ICD Codes: J18.1 - Lobar pneumonia, unspecified organism SNOMED: 645314526 Qualifiers: Qualified Codes: J18.1 - Lobar pneumonia, unspecified organism Status: not improved, deteriorating Assessment/Plan vent support resp rx iv abx iv steroids keep dry prn anxiolytics ngt feeds guarded Subjective ROS Limited/Unobtainable: Yes Constitutional: Reports: malaise, weakness HEENT: Reports: no symptoms Cardiovascular: Reports: no symptoms Respiratory: Reports: shortness of breath Gastrointestinal/Abdominal: Reports: no symptoms Genitourinary: Reports: no symptoms Neurologic/Psychiatric: Reports: no symptoms Endocrine: Reports: no symptoms Hematologic/Lymphatic: Reports: no symptoms Allergies: Coded Allergies: No Known Allergies (Unverified , 12/10/15) All Systems: reviewed and negative except above Subjective events noted. re-intubated for resp failure/acidosis. was on bipap, steroids, diamox. abg not improved. therefore, intubated. currently in the icu. sedated with ativan. Objective Last 24 Hour Vital Signs Date Time Temp Pulse Resp B/P (MAP) Pulse Ox O2 Delivery O2 Flow Rate FiO2 02/13/18 07:00 84 12 131/88 (102) 100 02/13/18 06:50 81 12 30 02/13/18 06:03 85 125/75 02/13/18 06:00 82 13 157/94 (115) 100 02/13/18 05:29 85 14 30 02/13/18 05:00 84 12 125/75 (92) 100 02/13/18 04:00 88 02/13/18 04:00 98.2 75 12 130/86 (101) 99 98.2 02/13/18 03:16 96 16 30 02/13/18 03:00 83 13 125/70 (88) 100 02/13/18 02:00 57 12 112/63 (79) 99 02/13/18 01:06 82 12 30 02/13/18 01:00 99.3 60 12 109/64 (79) 99 99.3 02/13/18 00:00 85 12 151/81 (104) 99 02/13/18 00:00 95 02/12/18 23:00 86 12 156/90 (112) 100 02/12/18 22:49 84 12 30 02/12/18 22:00 85 12 160/96 (117) 100 02/12/18 21:27 97 164/88 02/12/18 21:08 97 12 30 02/12/18 21:00 84 13 160/88 (112) 100 02/12/18 20:00 98.2 82 13 173/92 (119) 100 98.2 02/12/18 20:00 Mechanical Ventilator 02/12/18 20:00 90 02/12/18 19:22 81 12 30 02/12/18 19:00 82 12 164/88 (113) 100 02/12/18 18:00 82 13 166/98 (120) 100 02/12/18 17:30 85 16 30 02/12/18 17:00 78 12 188/107 (134) 100 02/12/18 16:00 73 02/12/18 16:00 99.1 81 12 150/98 (115) 100 99.1 02/12/18 16:00 90 02/12/18 15:07 90 13 30 02/12/18 13:20 71 16 95 Full Face 30 02/12/18 12:10 30 02/12/18 12:00 97.7 99 18 130/78 (95) 99 97.7 02/12/18 11:55 90 02/12/18 10:53 75 20 97 Full Face 30 02/12/18 09:00 Nasal Cannula 4.0 Intake and Output 02/12/18 02/13/18 19:00 07:00 Intake Total 287.5 ml 1222.5 ml Output Total 1830 ml 405 ml Balance -1542.5 ml 817.5 ml Intake Oral 240 ml IV Total 27.5 ml 962.5 ml Tube Feeding 20 ml 260 ml Output Urine Total 1830 ml 405 ml Laboratory Tests 02/12/18 09:39: Arterial Blood pH 7.122*L, Arterial Blood Partial Pressure CO2 129.5*H, Arterial Blood Partial Pressure O2 106.7H, Arterial Blood HCO3 41.3*H, Arterial Blood Oxygen Saturation 97.2, Arterial Blood Base Excess 6.4H, Tarun Test Positive 02/12/18 13:30: Arterial Blood pH 7.165*L, Arterial Blood Partial Pressure CO2 105.1*H, Arterial Blood Partial Pressure O2 68.6L, Arterial Blood HCO3 37.0H, Arterial Blood Oxygen Saturation 92.2L, Arterial Blood Base Excess 4.1H, Tarun Test Positive 02/12/18 16:32: Arterial Blood pH 7.354, Arterial Blood Partial Pressure CO2 60.5*H, Arterial Blood Partial Pressure O2 102.5H, Arterial Blood HCO3 33.0H, Arterial Blood Oxygen Saturation 98.0, Arterial Blood Base Excess 5.3H, Tarun Test Positive 02/13/18 03:35: White Blood Count 9.6, Red Blood Count 5.73H, Hemoglobin 15.9, Hematocrit 52.9H , Mean Corpuscular Volume 92, Mean Corpuscular Hemoglobin 27.7, Mean Corpuscular Hemoglobin Concent 30.0L, Red Cell Distribution Width 14.1, Platelet Count 248, Mean Platelet Volume 6.5, Neutrophils (%) (Auto) , Lymphocytes (%) (Auto) , Monocytes (%) (Auto) , Eosinophils (%) (Auto) , Basophils (%) (Auto) , Neutrophils % (Manual) [Pending], Lymphocytes % (Manual) [Pending], Platelet Estimate [Pending], Platelet Morphology [Pending], Sodium Level 141, Potassium Level 3.6, Chloride Level 106, Carbon Dioxide Level 31, Anion Gap 4L, Blood Urea Nitrogen 23H, Creatinine 0.8, Estimat Glomerular Filtration Rate , Glucose Level 152H, Calcium Level 9.6, Magnesium Level 1.8, Total Bilirubin 0.4, Aspartate Amino Transf (AST/SGOT) 8L, Alanine Aminotransferase (ALT/SGPT) 15, Alkaline Phosphatase 65, Pro-B-Type Natriuretic Peptide 372H, Total Protein 6.3L, Albumin 2.5L, Globulin 3.8, Albumin/Globulin Ratio 0.7L Height (Feet): 5 Height (Inches): 6.00 Weight (Pounds): 220 Objective General Appearance: WD/WN, resting. orally intubated Neck: supple Cardiovascular: regular rhythm Respiratory/Chest: lungs mostly clear, few rhonchi Abdomen: normal bowel sounds, non tender, soft, no organomegaly Edema: no edema noted Arm (L), no edema noted Arm (R), no edema noted Leg (L), no edema noted Leg (R), no edema noted Pedal (L), no edema noted Pedal (R), no edema noted Generalized Manan Byrd MD Feb 13, 2018 08:11
[2018-02-13] MEDS: Milk of Magnesia 30ml Ud ORAL SCH (09:06)
[2018-02-13] MEDS: Heparin 5000 units/ml inj SUBQ SCH ×2 (09:07→21:52)
[2018-02-13] MEDS: Aspirin EC 81mg tab ORAL SCH (09:08)
[2018-02-13] MEDS: Docusate 100mg cap ORAL SCH (09:08)
[2018-02-13] MEDS: D5 1/2NS 1,000 ML IV SCH ×2 (12:10→14:00)
--- NOTE | 2018-02-13 15:25 | Pulmonolgy Critical Care Note ---
Critical Care - Asmt/Plan Assessment/Plan: Pulmonary CCM Progress Note Assessment/Plan IMPRESSION: Acute respiratory failure, COPD with acute exacerbation, respiratory acidosis and associated hypoxemia, cardiomegaly, possible mild pulmonary edema, possible underlying pneumonia, protein-calorie malnutrition. PLAN respiratory care noted off vent Ventilatory support as needed IV antibiotics IV steroids increased supportive care monitor closely for now currently worse and may need transfer back to [facility] medications/laboratory data/nursing notes reviewed in detail note reviewed and edited care discussed with RN and RT patient remains in poor condition; worsening co2 retention on BIPAP; called for urgent intubation total time spent x 50 minutes in evaluation/discussion/review of labs Critical Care - Subjective Interval Events: worsening CO2 retention off BIPAP reduced LOC EKG Rhythm: Sinus Rhythm I&O: Intake and Output 02/11/18 02/12/18 19:00 07:00 Intake Total 120 ml Output Total 1200 ml 1100 ml Balance -1200 ml -980 ml Intake Oral 120 ml Output Urine Total 1200 ml 1100 ml # Bowel Movements 1 Critical Care - Objective ET-Tube: 7.5 ET Position: 24 Last 24 Hour Vital Signs Date Time Temp Pulse Resp B/P (MAP) Pulse Ox O2 Delivery O2 Flow Rate FiO2 02/12/18 09:00 Nasal Cannula 4.0 02/12/18 08:00 97.5 85 18 130/73 (92) 98 97.5 02/12/18 07:33 81 02/12/18 06:52 96 Nasal Cannula 3.0 32 02/12/18 06:52 Nasal Cannula 3.0 32 02/12/18 05:39 84 146/86 02/12/18 05:36 80 16 96 Full Face 30 02/12/18 04:00 85 02/12/18 04:00 97.1 84 16 146/86 (106) 93 97.1 02/12/18 03:29 81 27 94 Facial 30 02/12/18 01:26 79 20 95 Facial 30 02/12/18 00:00 97.0 80 19 156/89 (111) 96 97.0 02/12/18 00:00 85 02/11/18 23:19 70 20 95 Facial 30 02/11/18 22:27 84 124/75 02/11/18 21:15 75 20 95 Facial 30 02/11/18 21:00 Bi-pap 02/11/18 20:00 73 02/11/18 20:00 97.0 84 15 124/75 (91) 97 97.0 02/11/18 19:05 95 Bi-pap 30 02/11/18 19:05 72 19 95 Facial 30 02/11/18 19:05 Bi-pap 30 02/11/18 17:19 94 24 96 Facial 30 02/11/18 16:00 97.3 84 24 146/90 (108) 98 97.3 02/11/18 15:34 78 02/11/18 15:29 94 14 96 Facial 30 02/11/18 15:29 94 14 96 Bi-pap 30 02/11/18 15:29 94 14 96 Bi-pap 30 02/11/18 14:35 86 137/74 02/11/18 13:33 86 21 97 Facial 30 02/11/18 12:10 30 02/11/18 12:00 97.9 85 12 131/76 (94) 96 97.9 02/11/18 11:46 82 02/11/18 11:46 86 24 97 Facial 30 02/11/18 11:37 94 24 96 Bi-pap 30 02/11/18 11:37 94 24 96 Bi-pap 32 Labs: Labs Test 02/10/18 09:00 02/10/18 11:55 02/11/18 06:45 02/11/18 08:30 Vancomycin Level Trough 18.2 ug/mL (5.0-12.0) Arterial Blood pH 7.343 (7.350-7.450) 7.247 (7.350-7.450) Arterial Blood Partial Pressure CO2 72.3 mmHg (35.0-45.0) 89.0 mmHg (35.0-45.0) Arterial Blood Partial Pressure O2 72.8 mmHg (75.0-100.0) 103.0 mmHg (75.0-100.0) Arterial Blood HCO3 38.4 mmol/L (22.0-26.0) 37.9 mmol/L (22.0-26.0) Arterial Blood Oxygen Saturation 94.8 % (95-100) 97.3 % (95-100) Arterial Blood Base Excess 9.5 (-2-2) 7.1 (-2-2) Tarun Test Positive Positive Sodium Level 139 MMOL/L (136-145) Potassium Level 4.4 MMOL/L (3.5-5.1) Chloride Level 105 MMOL/L (98-107) Carbon Dioxide Level 29 MMOL/L (21-32) Anion Gap 5 mmol/L (5-15) Blood Urea Nitrogen 11 mg/dL (7-18) Creatinine 0.7 MG/DL (0.55-1.30) Estimat Glomerular Filtration Rate mL/min (>60) Glucose Level 127 MG/DL (74-106) Calcium Level 8.9 MG/DL (8.5-10.1) Total Bilirubin 0.2 MG/DL (0.2-1.0) Aspartate Amino Transf (AST/SGOT) 9 U/L (15-37) Alanine Aminotransferase (ALT/SGPT) 9 U/L (12-78) Alkaline Phosphatase 68 U/L (46-116) Pro-B-Type Natriuretic Peptide 526 pg/mL (0-125) Total Protein 6.3 G/DL (6.4-8.2) Albumin 2.5 G/DL (3.4-5.0) Globulin 3.8 g/dL Albumin/Globulin Ratio 0.7 (1.0-2.7) Test 02/11/18 09:00 White Blood Count 11.2 K/UL (4.8-10.8) Red Blood Count 5.07 M/UL (4.20-5.40) Hemoglobin 14.7 G/DL (12.0-16.0) Hematocrit 47.7 % (37.0-47.0) Mean Corpuscular Volume 94 FL (80-99) Mean Corpuscular Hemoglobin 29.1 PG (27.0-31.0) Mean Corpuscular Hemoglobin Concent 30.9 G/DL (32.0-36.0) Red Cell Distribution Width 14.4 % (11.6-14.8) Platelet Count 262 K/UL (150-450) Mean Platelet Volume 6.5 FL (6.5-10.1) Neutrophils (%) (Auto) % (45.0-75.0) Lymphocytes (%) (Auto) % (20.0-45.0) Monocytes (%) (Auto) % (1.0-10.0) Eosinophils (%) (Auto) % (0.0-3.0) Basophils (%) (Auto) % (0.0-2.0) Differential Total Cells Counted 100 Neutrophils % (Manual) 93 % (45-75) Lymphocytes % (Manual) 6 % (20-45) Monocytes % (Manual) 1 % (1-10) Eosinophils % (Manual) 0 % (0-3) Basophils % (Manual) 0 % (0-2) Band Neutrophils 0 % (0-8) Platelet Estimate Adequate Platelet Morphology Normal Red Blood Cell Morphology Normal Objective: GENERAL: on NC NAD; reduced LOC NECK: Supple. No adenopathy. No jugular venous distention. LUNGS: Moderate breath sounds. no rhonchi. No wheezes. reduced CARDIAC: S1 and S2. Regular rhythm without murmurs, rubs, or gallops. ABDOMEN: Soft, nontender, nondistended. no HSM EXTREMITIES: No cyanosis, clubbing, or edema. NEUROLOGIC: Grossly nonfocal, alert reviewed and examined Accucheck: 109 Critical Care - Objective Last 24 Hour Vital Signs Date Time Temp Pulse Resp B/P (MAP) Pulse Ox O2 Delivery O2 Flow Rate FiO2 02/13/18 14:34 77 12 30 02/13/18 13:11 78 12 30 02/13/18 11:00 89 12 155/91 (112) 100 02/13/18 10:42 79 12 30 02/13/18 10:00 82 12 140/75 (96) 100 02/13/18 09:00 Mechanical Ventilator 02/13/18 09:00 84 12 144/79 (100) 100 02/13/18 08:41 81 12 30 02/13/18 08:00 98.5 79 12 128/86 (100) 99 98.5 02/13/18 08:00 85 02/13/18 07:00 84 12 131/88 (102) 100 02/13/18 06:50 81 12 30 02/13/18 06:03 85 125/75 02/13/18 06:00 82 13 157/94 (115) 100 02/13/18 05:29 85 14 30 02/13/18 05:00 84 12 125/75 (92) 100 02/13/18 04:00 88 02/13/18 04:00 98.2 75 12 130/86 (101) 99 98.2 02/13/18 03:16 96 16 30 02/13/18 03:00 83 13 125/70 (88) 100 02/13/18 02:00 57 12 112/63 (79) 99 02/13/18 01:06 82 12 30 02/13/18 01:00 99.3 60 12 109/64 (79) 99 99.3 02/13/18 00:00 85 12 151/81 (104) 99 02/13/18 00:00 95 02/12/18 23:00 86 12 156/90 (112) 100 02/12/18 22:49 84 12 30 02/12/18 22:00 85 12 160/96 (117) 100 02/12/18 21:27 97 164/88 02/12/18 21:08 97 12 30 02/12/18 21:00 84 13 160/88 (112) 100 02/12/18 20:00 98.2 82 13 173/92 (119) 100 98.2 02/12/18 20:00 Mechanical Ventilator 02/12/18 20:00 90 02/12/18 19:22 81 12 30 02/12/18 19:00 82 12 164/88 (113) 100 02/12/18 18:00 82 13 166/98 (120) 100 02/12/18 17:30 85 16 30 02/12/18 17:00 78 12 188/107 (134) 100 02/12/18 16:00 73 02/12/18 16:00 99.1 81 12 150/98 (115) 100 99.1 02/12/18 16:00 90 Accucheck: 148 Critical Care - Subjective ROS Limited/Unobtainable: Yes FI02: 30 Vent Support Breath Rate: 12 Vent Support Mode: AC Vent Tidal Volume: 500 Sputum Amount: Small PEEP: 5.0 PIP: 39 Tube Feeding Amount: 20 I&O: Intake and Output 02/12/18 02/13/18 19:00 07:00 Intake Total 287.5 ml 1222.5 ml Output Total 1830 ml 405 ml Balance -1542.5 ml 817.5 ml Intake Oral 240 ml IV Total 27.5 ml 962.5 ml Tube Feeding 20 ml 260 ml Output Urine Total 1830 ml 405 ml ET-Tube: 7.5 ET Position: 25 Ashvin Serraon MD Feb 13, 2018 15:24
--- NOTE | 2018-02-13 15:52 | Diagnostic Imaging Report ---
Indications: Dysphagia Technique: Patient ingested multiple substances under the supervision of speech pathology. Video fluoroscopic recording performed. Total fluoroscopy time 196.8 seconds. Total dose area product 0.98796 mGycm2 Comparison: none Findings: Occasional trace laryngeal penetration is seen with ingestion of thin liquid barium. Ingestion of nectar thick liquid barium is uneventful except for some delayed pooling in the piriform sinuses. There is some early pooling of honey thick liquid barium in the vallecula, no significant delayed pooling or aspiration or penetration. Ingestion of barium puree demonstrates early pooling of acute vallecula, no significant aspiration, penetration, or residual. Impression: Positive for penetration of thin liquid barium. Please refer to speech pathology report for more detailed analysis
[2018-02-14] VITALS (24 sets, daily range): BP systolic 128–177; BP diastolic 70–99
--- NOTE | 2018-02-14 01:00 | Progress Note ---
DATE: 02/13/2018 CARDIOLOGY PROGRESS NOTE SUBJECTIVE: The patient remains on ventilator support. Orally intubated. Mechanically ventilated. Following worsening acid-base parameters yesterday. She remains on IV antibiotics and steroids. OBJECTIVE: LUNGS: Bilateral breath sounds. CARDIACL: Regular rhythm and rate. Normal S1, S2. ABDOMEN: Soft. EXTREMITIES: Trace dependent edema. LABORATORY STUDIES: White count 9.6, hemoglobin 15.9, potassium 3.6. BUN 23, creatinine 0.8. Magnesium 1.8. Albumin 2.5. Pro-natriuretic peptide 372. IMPRESSION: 1. Acute respiratory failure. 2. Hypoxia. 3. Healthcare acquired pneumonia. 4. Acute on chronic respiratory acidosis. 5. Acute diastolic congestive heart failure, recovering. 6. Moderate to severe protein-calorie malnutrition. PLAN: 1. Discontinue acetazolamide. 2. Antimicrobials to be continued with steroid theophylline. 3. Respiratory hygiene. 4. Maintenance hydration and nutrition by feeding tube. Ashvin Wu M.D. DR: FELICIANO JOB#: [id number] CC:
[2018-02-14] MEDS: Piperacillin/Tazobactam 3.375 GM in D5W 110 ML IVPB SCH ×3 (04:58→22:08)
[2018-02-14] MEDS: Solu-MEDROL 125mg Inj IVP SCH ×3 (05:02→22:10)
[2018-02-14] MEDS: dilTIAZem HCl 60mg tab ORAL SCH ×3 (05:03→22:09)
[2018-02-14] MEDS: Theophylline 80mg/15ml ORAL SCH ×3 (05:03→22:10)
--- NOTE | 2018-02-14 07:27 | General Progress Note ---
Assessment/Plan Problem List: (1) COPD exacerbation ICD Codes: J44.1 - Chronic obstructive pulmonary disease with (acute) exacerbation SNOMED: 152484516 (2) HTN (hypertension) ICD Codes: I10 - Essential (primary) hypertension SNOMED: 45733342 (3) Hypoxia ICD Codes: R09.02 - Hypoxemia SNOMED: 629729698 (4) Elevated troponin ICD Codes: R74.8 - Abnormal levels of other serum enzymes SNOMED: 895102294, 938324732, 784682842 (5) Renal insufficiency ICD Codes: N28.9 - Disorder of kidney and ureter, unspecified SNOMED: 320752829, 550169370 (6) Respiratory failure ICD Codes: J96.90 - Respiratory failure, unspecified, unspecified whether with hypoxia or hypercapnia SNOMED: 551064781 Qualifiers: Qualified Codes: J96.02 - Acute respiratory failure with hypercapnia (7) Right lower lobe pneumonia ICD Codes: J18.1 - Lobar pneumonia, unspecified organism SNOMED: 639864828 Qualifiers: Qualified Codes: J18.1 - Lobar pneumonia, unspecified organism Status: stable, not improved Assessment/Plan vent support resp rx wean per pulm check ua iv abx iv steroids keep dry prn anxiolytics ngt feeds guarded Subjective ROS Limited/Unobtainable: No Constitutional: Reports: malaise, weakness HEENT: Reports: no symptoms Cardiovascular: Reports: no symptoms Respiratory: Reports: no symptoms Gastrointestinal/Abdominal: Reports: no symptoms Genitourinary: Reports: no symptoms Neurologic/Psychiatric: Reports: pre-existing deficit Endocrine: Reports: no symptoms Hematologic/Lymphatic: Reports: no symptoms Allergies: Coded Allergies: No Known Allergies (Unverified , 12/10/15) All Systems: reviewed and negative except above Subjective events noted. re-intubated for resp failure/acidosis. abg improved on the vent. opens eyes. follows simple commands. no fever or chills. scant hematuria Objective Last 24 Hour Vital Signs Date Time Temp Pulse Resp B/P (MAP) Pulse Ox O2 Delivery O2 Flow Rate FiO2 02/14/18 06:00 69 12 141/86 (104) 95 02/14/18 05:08 73 12 30 02/14/18 05:03 73 164/89 02/14/18 05:00 74 12 164/89 (114) 97 02/14/18 04:00 75 12 169/88 (115) 97 02/14/18 04:00 Mechanical Ventilator 02/14/18 04:00 75 02/14/18 03:14 72 12 30 02/14/18 03:00 74 12 136/82 (100) 97 02/14/18 02:00 70 12 155/87 (109) 98 02/14/18 01:22 70 12 30 02/14/18 01:00 98.4 73 12 140/79 (99) 98 98.4 02/14/18 00:00 73 02/14/18 00:00 73 12 155/86 (109) 97 02/14/18 00:00 Mechanical Ventilator 02/13/18 23:14 78 12 30 02/13/18 23:00 81 14 158/83 (108) 98 02/13/18 22:00 88 12 131/75 (93) 100 02/13/18 21:48 89 145/78 02/13/18 21:28 87 12 30 02/13/18 21:00 90 12 145/78 (100) 100 02/13/18 20:00 96 02/13/18 20:00 98.3 94 18 137/69 (91) 100 98.3 02/13/18 20:00 Mechanical Ventilator 02/13/18 19:25 96 13 30 02/13/18 19:00 80 14 145/72 (96) 100 18 18:29 129/88 02/13/18 18:00 77 14 152/70 (97) 100 02/13/18 17:08 79 12 30 02/13/18 17:00 82 12 129/88 (102) 100 02/13/18 16:41 75 12 Mechanical Ventilator 30 02/13/18 16:00 98.5 78 12 136/77 (96) 99 98.5 02/13/18 16:00 30 02/13/18 16:00 91 02/13/18 15:00 89 12 149/87 (107) 100 02/13/18 14:34 77 12 30 02/13/18 14:00 88 12 155/91 (112) 100 02/13/18 14:00 77 155/91 02/13/18 13:11 78 12 30 02/13/18 13:00 89 12 152/79 (103) 100 02/13/18 12:00 98.5 75 12 140/80 (100) 99 98.5 02/13/18 12:00 82 02/13/18 12:00 30 02/13/18 11:00 89 12 155/91 (112) 100 02/13/18 10:42 79 12 30 02/13/18 10:00 82 12 140/75 (96) 100 02/13/18 09:00 Mechanical Ventilator 02/13/18 09:00 84 12 144/79 (100) 100 02/13/18 08:41 81 12 30 02/13/18 08:00 98.5 79 12 128/86 (100) 99 98.5 02/13/18 08:00 85 02/13/18 08:00 30 Intake and Output 02/13/18 02/14/18 19:00 07:00 Intake Total 872.5 ml 857.5 ml Output Total 410 ml 557 ml Balance 462.5 ml 300.5 ml IV Total 622.5 ml 687.5 ml Tube Feeding 250 ml 120 ml Other 50 ml Output Urine Total 410 ml 557 ml Laboratory Tests 02/13/18 08:26: Arterial Blood pH 7.440, Arterial Blood Partial Pressure CO2 43.7, Arterial Blood Partial Pressure O2 127.2H, Arterial Blood HCO3 29.0H, Arterial Blood Oxygen Saturation 98.7, Arterial Blood Base Excess 4.3H, Tarun Test Positive Height (Feet): 5 Height (Inches): 6.00 Weight (Pounds): 222 Objective General Appearance: WD/WN, resting. orally intubated, opens eyes Neck: supple Cardiovascular: regular rhythm Respiratory/Chest: lungs mostly clear, few rhonchi Abdomen: normal bowel sounds, non tender, soft, no organomegaly Edema: no edema noted Arm (L), no edema noted Arm (R), no edema noted Leg (L), no edema noted Leg (R), no edema noted Pedal (L), no edema noted Pedal (R), no edema noted Generalized Manan Byrd MD Feb 14, 2018 07:27
[2018-02-14] MEDS: Milk of Magnesia 30ml Ud ORAL SCH (08:32)
[2018-02-14] MEDS: Aspirin EC 81mg tab ORAL SCH (08:33)
[2018-02-14] MEDS: Docusate 100mg cap ORAL SCH (08:33)
[2018-02-14 10:00] LABS: HEMATOCRIT 47.8 % (37.0-47.0); HEMOGLOBIN 14.6 G/DL (12.0-16.0); MEAN CORPUSCULAR VOLUME 92 FL (80-99); PLATELET COUNT 218 K/UL (150-450); RED CELL DISTRIBUTION WIDTH 13.7 % (11.6-14.8); WHITE BLOOD COUNT 8.2 K/UL (4.8-10.8)
[2018-02-14 10:10] LABS: APPEARANCE,URINE CLOUDY; BILIRUBIN, URINE NEGATIVE (NEGATIVE); COLOR,URINE PALE YELLOW; GLUCOSE, URINE (UA) NEGATIVE (NEGATIVE); KETONES,URINE NEGATIVE (NEGATIVE); LEUKOCYTE ESTERASE ,URINE 3+ (NEGATIVE); NITRITE,URINE NEGATIVE (NEGATIVE); PH,URINE 6.5 (4.5-8.0); PROTEIN,URINE 3+ (NEGATIVE); UROBILINOGEN,URINE NORMAL MG/DL (0.0-1.0)
[2018-02-14 10:32] LABS: ALANINE AMINOTRANSFERASE 6 U/L (12-78); ALBUMIN 2.1 G/DL (3.4-5.0); ALBUMIN/GLOBULIN RATIO 0.5 (1.0-2.7); ALKALINE PHOSPHATASE 61 U/L (46-116); ANION GAP 9 mmol/L (5-15); ASPARTATE AMINO TRANSFERASE 11 U/L (15-37); BILIRUBIN,TOTAL 0.3 MG/DL (0.2-1.0); BLOOD UREA NITROGEN 25 mg/dL (7-18); CALCIUM 9.2 MG/DL (8.5-10.1); CARBON DIOXIDE 24 MMOL/L (21-32); CHLORIDE 105 MMOL/L (98-107); CREATININE 0.6 MG/DL (0.55-1.30); POTASSIUM 3.6 MMOL/L (3.5-5.1); SODIUM 138 MMOL/L (136-145)
[2018-02-14] MEDS: Heparin 5000 units/ml inj SUBQ SCH ×2 (10:35→22:07)
[2018-02-14] MEDS: LORazepam Inj 2mg/ml 1ml IV PRN (18:00)
--- NOTE | 2018-02-14 20:16 | Critical Care Progress Note ---
Assessment/Plan Assessment/Plan IMPRESSION: Acute respiratory failure, COPD with acute exacerbation, respiratory acidosis and associated hypoxemia, cardiomegaly, pleural effusion and pulmonary edema, protein-calorie malnutrition. PLAN respiratory care noted back on vent IV antibiotics IV steroids increased supportive care monitor closely for now care d/w daughter- update given in detail medications/laboratory data/nursing notes/ICU care reviewed in detail note reviewed and edited care discussed with RN and RT ICU time spent 42 minutes Critical Care - Subjective Interval Events: intubated and sedated acid base seems worse vent reviewed ICU care reviewed ROS Limited/Unobtainable: Yes Condition: critical EKG Rhythm: Sinus Rhythm I&O: Intake and Output 02/13/18 02/14/18 19:00 07:00 Intake Total 872.5 ml 935.0 ml Output Total 410 ml 612 ml Balance 462.5 ml 323.0 ml IV Total 622.5 ml 765.0 ml Tube Feeding 250 ml 120 ml Other 50 ml Output Urine Total 410 ml 612 ml Critical Care - Objective CXR: improved overall ET-Tube: 7.5 ET Position: 25 Last 24 Hour Vital Signs Date Time Temp Pulse Resp B/P (MAP) Pulse Ox O2 Delivery O2 Flow Rate FiO2 02/14/18 20:00 Mechanical Ventilator 02/14/18 20:00 65 12 165/82 (109) 98 02/14/18 19:22 65 12 30 02/14/18 19:00 70 12 170/90 (116) 98 02/14/18 18:00 89 12 177/95 (122) 98 02/14/18 17:00 68 12 175/88 (117) 97 02/14/18 16:43 70 12 30 02/14/18 16:00 69 02/14/18 16:00 97.5 69 12 140/81 (100) 97 97.5 02/14/18 16:00 Mechanical Ventilator 02/14/18 15:00 65 12 163/99 (120) 98 02/14/18 14:56 68 12 30 02/14/18 14:52 60 151/79 02/14/18 14:00 63 12 147/76 (99) 99 02/14/18 13:00 67 12 149/85 (106) 97 02/14/18 12:54 74 12 30 02/14/18 12:48 138/81 02/14/18 12:00 97.4 73 12 128/76 (93) 98 97.4 02/14/18 12:00 70 02/14/18 12:00 Mechanical Ventilator 02/14/18 11:02 84 17 30 02/14/18 11:00 88 16 161/70 (100) 97 02/14/18 10:00 87 23 162/84 (110) 97 02/14/18 09:15 30 02/14/18 09:08 98 02/14/18 09:07 63 12 30 02/14/18 09:00 71 15 166/84 (111) 97 02/14/18 08:00 Mechanical Ventilator 02/14/18 08:00 70 02/14/18 08:00 30 02/14/18 08:00 97.6 67 13 164/82 (109) 97 97.6 02/14/18 07:51 67 12 30 02/14/18 07:00 70 12 138/82 (100) 97 02/14/18 06:00 69 12 141/86 (104) 95 02/14/18 05:08 73 12 30 02/14/18 05:03 73 164/89 02/14/18 05:00 74 12 164/89 (114) 97 02/14/18 04:00 75 12 169/88 (115) 97 02/14/18 04:00 Mechanical Ventilator 02/14/18 04:00 75 02/14/18 03:14 72 12 30 02/14/18 03:00 74 12 136/82 (100) 97 02/14/18 02:00 70 12 155/87 (109) 98 02/14/18 01:22 70 12 30 02/14/18 01:00 98.4 73 12 140/79 (99) 98 98.4 02/14/18 00:00 73 02/14/18 00:00 73 12 155/86 (109) 97 02/14/18 00:00 Mechanical Ventilator 02/13/18 23:14 78 12 30 02/13/18 23:00 81 14 158/83 (108) 98 02/13/18 22:00 88 12 131/75 (93) 100 02/13/18 21:48 89 145/78 02/13/18 21:28 87 12 30 02/13/18 21:00 90 12 145/78 (100) 100 Labs: Laboratory Tests Test 02/14/18 08:30 02/14/18 09:00 02/14/18 10:28 Urine Color Pale yellow Urine Appearance Cloudy Urine pH 6.5 (4.5-8.0) Urine Specific [place] 1.010 (1.005-1.035) Urine Protein 3+ (NEGATIVE) H Urine Glucose (UA) Negative (NEGATIVE) Urine Ketones Negative (NEGATIVE) Urine Blood 5+ (NEGATIVE) H Urine Nitrite Negative (NEGATIVE) Urine Bilirubin Negative (NEGATIVE) Urine Urobilinogen Normal MG/DL (0.0-1.0) Urine Leukocyte Esterase 3+ (NEGATIVE) H Urine RBC Tntc /HPF (0 - 2) H Urine WBC 10-15 /HPF (0 - 2) H Urine Squamous Epithelial Cells Occasional /LPF Urine Bacteria Few /HPF (NONE) White Blood Count 8.2 K/UL (4.8-10.8) Red Blood Count 5.20 M/UL (4.20-5.40) Hemoglobin 14.6 G/DL (12.0-16.0) Hematocrit 47.8 % (37.0-47.0) H Mean Corpuscular Volume 92 FL (80-99) Mean Corpuscular Hemoglobin 28.0 PG (27.0-31.0) Mean Corpuscular Hemoglobin Concent 30.5 G/DL (32.0-36.0) L Red Cell Distribution Width 13.7 % (11.6-14.8) Platelet Count 218 K/UL (150-450) Mean Platelet Volume 6.2 FL (6.5-10.1) L Neutrophils (%) (Auto) % (45.0-75.0) Lymphocytes (%) (Auto) % (20.0-45.0) Monocytes (%) (Auto) % (1.0-10.0) Eosinophils (%) (Auto) % (0.0-3.0) Basophils (%) (Auto) % (0.0-2.0) Differential Total Cells Counted 100 Neutrophils % (Manual) 95 % (45-75) H Lymphocytes % (Manual) 3 % (20-45) L Monocytes % (Manual) 2 % (1-10) Eosinophils % (Manual) 0 % (0-3) Basophils % (Manual) 0 % (0-2) Band Neutrophils 0 % (0-8) Platelet Estimate Adequate Platelet Morphology Normal Sodium Level 138 MMOL/L (136-145) Potassium Level 3.6 MMOL/L (3.5-5.1) Chloride Level 105 MMOL/L (98-107) Carbon Dioxide Level 24 MMOL/L (21-32) Anion Gap 9 mmol/L (5-15) Blood Urea Nitrogen 25 mg/dL (7-18) H Creatinine 0.6 MG/DL (0.55-1.30) Estimat Glomerular Filtration Rate mL/min (>60) Glucose Level 140 MG/DL (74-106) H Calcium Level 9.2 MG/DL (8.5-10.1) Total Bilirubin 0.3 MG/DL (0.2-1.0) Aspartate Amino Transf (AST/SGOT) 11 U/L (15-37) L Alanine Aminotransferase (ALT/SGPT) 6 U/L (12-78) L Alkaline Phosphatase 61 U/L (46-116) Total Protein 6.0 G/DL (6.4-8.2) L Albumin 2.1 G/DL (3.4-5.0) L Globulin 3.9 g/dL Albumin/Globulin Ratio 0.5 (1.0-2.7) L Arterial Blood pH 7.300 (7.350-7.450) Arterial Blood Partial Pressure CO2 58.4 mmHg (35.0-45.0) *H Arterial Blood Partial Pressure O2 85.2 mmHg (75.0-100.0) Arterial Blood HCO3 28.1 mmol/L (22.0-26.0) H Arterial Blood Oxygen Saturation 95.4 % (95-100) Arterial Blood Base Excess 0.3 (-2-2) Tarun Test Positive Objective: GENERAL: sedated; on vent NECK: Supple. No adenopathy. No jugular venous distention. LUNGS: Moderate breath sounds. no rhonchi. No wheezes. reduced and stable CARDIAC: S1 and S2. Regular rhythm without murmurs, rubs, or gallops. ABDOMEN: Soft, nontender, nondistended. no HSM EXTREMITIES: No cyanosis, clubbing; trace edema. NEUROLOGIC: Grossly nonfocal, sedated reviewed and examined Accucheck: 124 Mk Billings MD Feb 14, 2018 20:16
[2018-02-15] VITALS (24 sets, daily range): BP systolic 139–180; BP diastolic 74–105
[2018-02-15] MEDS: Piperacillin/Tazobactam 3.375 GM in D5W 110 ML IVPB SCH ×3 (05:50→21:34)
[2018-02-15] MEDS: dilTIAZem HCl 60mg tab ORAL SCH ×3 (05:51→21:34)
[2018-02-15] MEDS: Solu-MEDROL 125mg Inj IVP SCH ×3 (05:51→21:34)
[2018-02-15] MEDS: Theophylline 80mg/15ml ORAL SCH (05:51)
[2018-02-15 06:06] LABS: ALANINE AMINOTRANSFERASE 15 U/L (12-78); ALBUMIN 2.4 G/DL (3.4-5.0); ALBUMIN/GLOBULIN RATIO 0.6 (1.0-2.7); ALKALINE PHOSPHATASE 69 U/L (46-116); ANION GAP 6 mmol/L (5-15); ASPARTATE AMINO TRANSFERASE 6 U/L (15-37); BILIRUBIN,TOTAL 0.3 MG/DL (0.2-1.0); BLOOD UREA NITROGEN 20 mg/dL (7-18); CARBON DIOXIDE 31 MMOL/L (21-32); CHLORIDE 106 MMOL/L (98-107); CREATININE 0.7 MG/DL (0.55-1.30); POTASSIUM 3.2 MMOL/L (3.5-5.1); SODIUM 142 MMOL/L (136-145)
--- NOTE | 2018-02-15 06:39 | General Progress Note ---
Assessment/Plan Problem List: (1) COPD exacerbation ICD Codes: J44.1 - Chronic obstructive pulmonary disease with (acute) exacerbation SNOMED: 283346142 (2) HTN (hypertension) ICD Codes: I10 - Essential (primary) hypertension SNOMED: 74431469 (3) Hypoxia ICD Codes: R09.02 - Hypoxemia SNOMED: 359308684 (4) Elevated troponin ICD Codes: R74.8 - Abnormal levels of other serum enzymes SNOMED: 482646325, 268694119, 583985497 (5) Renal insufficiency ICD Codes: N28.9 - Disorder of kidney and ureter, unspecified SNOMED: 729542145, 704616317 (6) Respiratory failure ICD Codes: J96.90 - Respiratory failure, unspecified, unspecified whether with hypoxia or hypercapnia SNOMED: 086993170 Qualifiers: Qualified Codes: J96.02 - Acute respiratory failure with hypercapnia (7) Right lower lobe pneumonia ICD Codes: J18.1 - Lobar pneumonia, unspecified organism SNOMED: 370448957 Qualifiers: Qualified Codes: J18.1 - Lobar pneumonia, unspecified organism Status: stable Assessment/Plan vent support resp rx wean per pulm replace k iv abx iv steroids keep dry prn anxiolytics ngt feeds guarded Subjective ROS Limited/Unobtainable: No Constitutional: Reports: malaise, weakness HEENT: Reports: no symptoms Cardiovascular: Reports: no symptoms Respiratory: Reports: no symptoms Gastrointestinal/Abdominal: Reports: no symptoms Genitourinary: Reports: no symptoms Neurologic/Psychiatric: Reports: no symptoms Endocrine: Reports: no symptoms Hematologic/Lymphatic: Reports: no symptoms Allergies: Coded Allergies: No Known Allergies (Unverified , 12/10/15) All Systems: reviewed and negative except above Subjective no events. stable on the vent. no fever or chills. no sob. has lice in her hair. no weaning yet Objective Last 24 Hour Vital Signs Date Time Temp Pulse Resp B/P (MAP) Pulse Ox O2 Delivery O2 Flow Rate FiO2 02/15/18 06:00 73 13 165/90 (115) 99 02/15/18 05:51 77 181/108 02/15/18 05:02 82 15 30 02/15/18 05:00 82 13 169/105 (126) 99 02/15/18 04:00 65 02/15/18 04:00 Mechanical Ventilator 02/15/18 04:00 81 13 164/93 (116) 99 02/15/18 03:14 66 12 30 02/15/18 03:00 75 13 175/91 (119) 99 02/15/18 02:00 79 13 158/95 (116) 99 02/15/18 01:01 86 14 30 02/15/18 01:00 79 13 169/90 (116) 99 02/15/18 00:00 80 13 165/89 (114) 99 02/15/18 00:00 80 02/15/18 00:00 Mechanical Ventilator 02/14/18 23:28 74 12 30 02/14/18 23:00 79 12 169/82 (111) 99 02/14/18 22:09 69 172/87 02/14/18 22:00 71 12 172/87 (115) 99 02/14/18 21:09 66 12 30 02/14/18 21:00 97.4 65 12 161/83 (109) 98 97.4 02/14/18 20:00 Mechanical Ventilator 02/14/18 20:00 65 12 165/82 (109) 98 02/14/18 19:22 65 12 30 02/14/18 19:00 70 12 170/90 (116) 98 02/14/18 18:00 89 12 177/95 (122) 98 02/14/18 17:00 68 12 175/88 (117) 97 02/14/18 16:43 70 12 30 02/14/18 16:00 69 02/14/18 16:00 97.5 69 12 140/81 (100) 97 97.5 02/14/18 16:00 Mechanical Ventilator 02/14/18 15:00 65 12 163/99 (120) 98 02/14/18 14:56 68 12 30 02/14/18 14:52 60 151/79 02/14/18 14:00 63 12 147/76 (99) 99 02/14/18 13:00 67 12 149/85 (106) 97 02/14/18 12:54 74 12 30 02/14/18 12:48 138/81 02/14/18 12:00 97.4 73 12 128/76 (93) 98 97.4 02/14/18 12:00 70 02/14/18 12:00 Mechanical Ventilator 02/14/18 11:02 84 17 30 02/14/18 11:00 88 16 161/70 (100) 97 02/14/18 10:00 87 23 162/84 (110) 97 02/14/18 09:15 30 02/14/18 09:08 98 02/14/18 09:07 63 12 30 02/14/18 09:00 71 15 166/84 (111) 97 02/14/18 08:00 Mechanical Ventilator 02/14/18 08:00 70 02/14/18 08:00 30 02/14/18 08:00 97.6 67 13 164/82 (109) 97 97.6 02/14/18 07:51 67 12 30 02/14/18 07:00 70 12 138/82 (100) 97 Intake and Output 02/14/18 02/15/18 19:00 07:00 Intake Total 620.0 ml 840.0 ml Output Total 820 ml 780 ml Balance -200.0 ml 60.0 ml IV Total 305.0 ml 510.0 ml Tube Feeding 240 ml 330 ml Other 75 ml Output Urine Total 820 ml 780 ml # Bowel Movements 1 Laboratory Tests 02/14/18 08:30: Urine Color Pale yellow, Urine Appearance Cloudy, Urine pH 6.5, Urine Specific [place] 1.010, Urine Protein 3+H, Urine Glucose (UA) Negative, Urine Ketones Negative, Urine Blood 5+H, Urine Nitrite Negative, Urine Bilirubin Negative, Urine Urobilinogen Normal, Urine Leukocyte Esterase 3+H, Urine RBC TntcH, Urine WBC 10-15H, Urine Squamous Epithelial Cells Occasional, Urine Bacteria Few 02/14/18 09:00: White Blood Count 8.2, Red Blood Count 5.20, Hemoglobin 14.6, Hematocrit 47.8H, Mean Corpuscular Volume 92, Mean Corpuscular Hemoglobin 28.0, Mean Corpuscular Hemoglobin Concent 30.5L, Red Cell Distribution Width 13.7, Platelet Count 218, Mean Platelet Volume 6.2L, Neutrophils (%) (Auto) , Lymphocytes (%) (Auto) , Monocytes (%) (Auto) , Eosinophils (%) (Auto) , Basophils (%) (Auto) , Differential Total Cells Counted 100, Neutrophils % (Manual) 95H, Lymphocytes % (Manual) 3L, Monocytes % (Manual) 2, Eosinophils % (Manual) 0, Basophils % ( Manual) 0, Band Neutrophils 0, Platelet Estimate Adequate, Platelet Morphology Normal, Sodium Level 138, Potassium Level 3.6, Chloride Level 105, Carbon Dioxide Level 24, Anion Gap 9, Blood Urea Nitrogen 25H, Creatinine 0.6, Estimat Glomerular Filtration Rate , Glucose Level 140H, Calcium Level 9.2, Total Bilirubin 0.3, Aspartate Amino Transf (AST/SGOT) 11L, Alanine Aminotransferase ( ALT/SGPT) 6L, Alkaline Phosphatase 61, Total Protein 6.0L, Albumin 2.1L, Globulin 3.9, Albumin/Globulin Ratio 0.5L 02/14/18 10:28: Arterial Blood pH 7.300L, Arterial Blood Partial Pressure CO2 58.4*H, Arterial Blood Partial Pressure O2 85.2, Arterial Blood HCO3 28.1H, Arterial Blood Oxygen Saturation 95.4, Arterial Blood Base Excess 0.3, Tarun Test Positive 02/15/18 05:34: Sodium Level 142, Potassium Level 3.2L, Chloride Level 106, Carbon Dioxide Level 31, Anion Gap 6, Blood Urea Nitrogen 20H, Creatinine 0.7, Estimat Glomerular Filtration Rate , Glucose Level 140H, Calcium Level 9.0, Total Bilirubin 0.3, Aspartate Amino Transf (AST/SGOT) 6L, Alanine Aminotransferase ( ALT/SGPT) 15, Alkaline Phosphatase 69, Total Protein 6.1L, Albumin 2.4L, Globulin 3.7, Albumin/Globulin Ratio 0.6L Height (Feet): 5 Height (Inches): 6.00 Weight (Pounds): 218 Objective General Appearance: WD/WN, resting. orally intubated, opens eyes Neck: supple Cardiovascular: regular rhythm Respiratory/Chest: lungs mostly clear, few rhonchi Abdomen: normal bowel sounds, non tender, soft, no organomegaly Edema: no edema noted Arm (L), no edema noted Arm (R), no edema noted Leg (L), no edema noted Leg (R), no edema noted Pedal (L), no edema noted Pedal (R), no edema noted Generalized Manan Byrd MD Feb 15, 2018 06:39
[2018-02-15] MEDS: Docusate 100mg cap ORAL SCH (09:07)
[2018-02-15] MEDS: Aspirin EC 81mg tab ORAL SCH (09:07)
[2018-02-15] MEDS: Milk of Magnesia 30ml Ud ORAL SCH (09:07)
[2018-02-15] MEDS: Heparin 5000 units/ml inj SUBQ SCH ×2 (09:09→20:58)
[2018-02-15] MEDS ORDERED: Tubing IV Secondary IV ONE (10:21)
[2018-02-15] MEDS ORDERED: NS 275ml ONE ×2 (10:21→10:37)
[2018-02-15] MEDS ORDERED: 1/2 NS 1000ml IV ONE (10:37)
[2018-02-15] MEDS: LORazepam Inj 2mg/ml 1ml IV PRN ×2 (10:43→20:03)
[2018-02-15] MEDS: Levalbuterol Inh UD 1.25mg/0.5ml HHN SCH ×2 (14:10→19:46)
[2018-02-15] MEDS: Ipratropium 0.02% Inh Soln 2.5ml UD HHN SCH ×3 (14:10→19:46)
[2018-02-15] MEDS ORDERED: Zemuron 50mg/5ml Inj IV ONE (16:54)
[2018-02-15] MEDS ORDERED: Etomidate 40mg/20ml Inj IV ONE (16:54)
[2018-02-15] MEDS ORDERED: [UNRECOGNIZED DRUG - OTHER] TOPIC SCH (17:00)
--- NOTE | 2018-02-15 19:18 | Pulmonolgy Critical Care Note ---
Critical Care - Asmt/Plan Assessment/Plan: Pulmonary CCM Progress Note Assessment/Plan IMPRESSION: Acute respiratory failure, COPD with acute exacerbation, respiratory acidosis and associated hypoxemia, cardiomegaly, possible mild pulmonary edema, possible underlying pneumonia, protein-calorie malnutrition. PLAN respiratory care noted off vent Ventilatory support as needed IV antibiotics IV steroids increased supportive care monitor closely for now currently worse and may need transfer back to [facility] medications/laboratory data/nursing notes reviewed in detail note reviewed and edited care discussed with RN and RT patient remains in poor condition; worsening co2 retention on BIPAP; called for urgent intubation total time spent x 50 minutes in evaluation/discussion/review of labs Critical Care - Subjective Interval Events: worsening CO2 retention off BIPAP reduced LOC EKG Rhythm: Sinus Rhythm I&O: Intake and Output 02/11/18 02/12/18 19:00 07:00 Intake Total 120 ml Output Total 1200 ml 1100 ml Balance -1200 ml -980 ml Intake Oral 120 ml Output Urine Total 1200 ml 1100 ml # Bowel Movements 1 Critical Care - Objective ET-Tube: 7.5 ET Position: 24 Last 24 Hour Vital Signs Date Time Temp Pulse Resp B/P (MAP) Pulse Ox O2 Delivery O2 Flow Rate FiO2 02/12/18 09:00 Nasal Cannula 4.0 02/12/18 08:00 97.5 85 18 130/73 (92) 98 97.5 02/12/18 07:33 81 02/12/18 06:52 96 Nasal Cannula 3.0 32 02/12/18 06:52 Nasal Cannula 3.0 32 02/12/18 05:39 84 146/86 02/12/18 05:36 80 16 96 Full Face 30 02/12/18 04:00 85 02/12/18 04:00 97.1 84 16 146/86 (106) 93 97.1 02/12/18 03:29 81 27 94 Facial 30 02/12/18 01:26 79 20 95 Facial 30 02/12/18 00:00 97.0 80 19 156/89 (111) 96 97.0 02/12/18 00:00 85 02/11/18 23:19 70 20 95 Facial 30 02/11/18 22:27 84 124/75 02/11/18 21:15 75 20 95 Facial 30 02/11/18 21:00 Bi-pap 02/11/18 20:00 73 02/11/18 20:00 97.0 84 15 124/75 (91) 97 97.0 02/11/18 19:05 95 Bi-pap 30 02/11/18 19:05 72 19 95 Facial 30 02/11/18 19:05 Bi-pap 30 02/11/18 17:19 94 24 96 Facial 30 02/11/18 16:00 97.3 84 24 146/90 (108) 98 97.3 02/11/18 15:34 78 02/11/18 15:29 94 14 96 Facial 30 02/11/18 15:29 94 14 96 Bi-pap 30 02/11/18 15:29 94 14 96 Bi-pap 30 02/11/18 14:35 86 137/74 02/11/18 13:33 86 21 97 Facial 30 02/11/18 12:10 30 02/11/18 12:00 97.9 85 12 131/76 (94) 96 97.9 02/11/18 11:46 82 02/11/18 11:46 86 24 97 Facial 30 02/11/18 11:37 94 24 96 Bi-pap 30 02/11/18 11:37 94 24 96 Bi-pap 32 Labs: Labs Test 02/10/18 09:00 02/10/18 11:55 02/11/18 06:45 02/11/18 08:30 Vancomycin Level Trough 18.2 ug/mL (5.0-12.0) Arterial Blood pH 7.343 (7.350-7.450) 7.247 (7.350-7.450) Arterial Blood Partial Pressure CO2 72.3 mmHg (35.0-45.0) 89.0 mmHg (35.0-45.0) Arterial Blood Partial Pressure O2 72.8 mmHg (75.0-100.0) 103.0 mmHg (75.0-100.0) Arterial Blood HCO3 38.4 mmol/L (22.0-26.0) 37.9 mmol/L (22.0-26.0) Arterial Blood Oxygen Saturation 94.8 % (95-100) 97.3 % (95-100) Arterial Blood Base Excess 9.5 (-2-2) 7.1 (-2-2) Tarun Test Positive Positive Sodium Level 139 MMOL/L (136-145) Potassium Level 4.4 MMOL/L (3.5-5.1) Chloride Level 105 MMOL/L (98-107) Carbon Dioxide Level 29 MMOL/L (21-32) Anion Gap 5 mmol/L (5-15) Blood Urea Nitrogen 11 mg/dL (7-18) Creatinine 0.7 MG/DL (0.55-1.30) Estimat Glomerular Filtration Rate mL/min (>60) Glucose Level 127 MG/DL (74-106) Calcium Level 8.9 MG/DL (8.5-10.1) Total Bilirubin 0.2 MG/DL (0.2-1.0) Aspartate Amino Transf (AST/SGOT) 9 U/L (15-37) Alanine Aminotransferase (ALT/SGPT) 9 U/L (12-78) Alkaline Phosphatase 68 U/L (46-116) Pro-B-Type Natriuretic Peptide 526 pg/mL (0-125) Total Protein 6.3 G/DL (6.4-8.2) Albumin 2.5 G/DL (3.4-5.0) Globulin 3.8 g/dL Albumin/Globulin Ratio 0.7 (1.0-2.7) Test 02/11/18 09:00 White Blood Count 11.2 K/UL (4.8-10.8) Red Blood Count 5.07 M/UL (4.20-5.40) Hemoglobin 14.7 G/DL (12.0-16.0) Hematocrit 47.7 % (37.0-47.0) Mean Corpuscular Volume 94 FL (80-99) Mean Corpuscular Hemoglobin 29.1 PG (27.0-31.0) Mean Corpuscular Hemoglobin Concent 30.9 G/DL (32.0-36.0) Red Cell Distribution Width 14.4 % (11.6-14.8) Platelet Count 262 K/UL (150-450) Mean Platelet Volume 6.5 FL (6.5-10.1) Neutrophils (%) (Auto) % (45.0-75.0) Lymphocytes (%) (Auto) % (20.0-45.0) Monocytes (%) (Auto) % (1.0-10.0) Eosinophils (%) (Auto) % (0.0-3.0) Basophils (%) (Auto) % (0.0-2.0) Differential Total Cells Counted 100 Neutrophils % (Manual) 93 % (45-75) Lymphocytes % (Manual) 6 % (20-45) Monocytes % (Manual) 1 % (1-10) Eosinophils % (Manual) 0 % (0-3) Basophils % (Manual) 0 % (0-2) Band Neutrophils 0 % (0-8) Platelet Estimate Adequate Platelet Morphology Normal Red Blood Cell Morphology Normal Objective: GENERAL: on NC NAD; reduced LOC NECK: Supple. No adenopathy. No jugular venous distention. LUNGS: Moderate breath sounds. no rhonchi. No wheezes. reduced CARDIAC: S1 and S2. Regular rhythm without murmurs, rubs, or gallops. ABDOMEN: Soft, nontender, nondistended. no HSM EXTREMITIES: No cyanosis, clubbing, or edema. NEUROLOGIC: Grossly nonfocal, alert reviewed and examined Accucheck: 109 Critical Care - Objective Last 24 Hour Vital Signs Date Time Temp Pulse Resp B/P (MAP) Pulse Ox O2 Delivery O2 Flow Rate FiO2 02/15/18 18:00 69 16 142/80 (100) 98 02/15/18 17:02 72 23 30 02/15/18 17:00 70 14 147/83 (104) 98 02/15/18 16:00 66 12 142/80 (100) 96 02/15/18 16:00 Mechanical Ventilator 02/15/18 15:50 71 02/15/18 15:13 80 18 30 02/15/18 15:02 80 160/84 02/15/18 15:00 79 14 146/77 (100) 97 02/15/18 14:09 66 12 99 Mechanical Ventilator 30 02/15/18 14:00 67 12 142/78 (99) 98 02/15/18 14:00 73 12 99 Mechanical Ventilator 30 02/15/18 14:00 30 02/15/18 13:00 66 12 30 02/15/18 13:00 64 19 139/78 (98) 99 02/15/18 12:00 Mechanical Ventilator 02/15/18 12:00 72 02/15/18 12:00 30 02/15/18 12:00 97.8 72 13 140/79 (99) 98 97.8 02/15/18 11:00 72 12 141/96 (111) 98 02/15/18 10:59 64 12 30 02/15/18 10:00 75 13 139/78 (98) 99 02/15/18 09:00 78 13 158/82 (107) 99 02/15/18 08:57 99 02/15/18 08:54 81 17 30 02/15/18 08:00 30 02/15/18 08:00 97.7 68 12 141/76 (97) 99 97.7 02/15/18 08:00 Mechanical Ventilator 02/15/18 08:00 68 02/15/18 07:00 73 13 159/85 (109) 99 02/15/18 06:48 67 12 30 02/15/18 06:00 73 13 165/90 (115) 99 02/15/18 05:51 77 181/108 02/15/18 05:02 82 15 30 02/15/18 05:00 82 13 169/105 (126) 99 02/15/18 04:00 65 02/15/18 04:00 Mechanical Ventilator 02/15/18 04:00 81 13 164/93 (116) 99 02/15/18 03:14 66 12 30 02/15/18 03:00 75 13 175/91 (119) 99 02/15/18 02:00 79 13 158/95 (116) 99 02/15/18 01:01 86 14 30 02/15/18 01:00 79 13 169/90 (116) 99 02/15/18 00:00 80 13 165/89 (114) 99 02/15/18 00:00 80 02/15/18 00:00 Mechanical Ventilator 02/14/18 23:28 74 12 30 02/14/18 23:00 79 12 169/82 (111) 99 02/14/18 22:09 69 172/87 02/14/18 22:00 71 12 172/87 (115) 99 02/14/18 21:09 66 12 30 02/14/18 21:00 97.4 65 12 161/83 (109) 98 97.4 02/14/18 20:00 Mechanical Ventilator 02/14/18 20:00 65 12 165/82 (109) 98 02/14/18 19:22 65 12 30 Micro: Microbiology Date/Time Source Procedure Growth Status 02/14/18 08:30 Indwelling Cath Urine Culture - Preliminary NO GROWTH Resulted Accucheck: 140 Critical Care - Subjective ROS Limited/Unobtainable: Yes Condition: stable FI02: 30 Vent Support Breath Rate: 12 Vent Support Mode: AC Vent Tidal Volume: 500 Sputum Amount: Scant PEEP: 5.0 PIP: 20 Tube Feeding Amount: 25 I&O: Intake and Output 02/14/18 02/15/18 19:00 07:00 Intake Total 620.0 ml 1147.5 ml Output Total 820 ml 860 ml Balance -200.0 ml 287.5 ml IV Total 305.0 ml 787.5 ml Tube Feeding 240 ml 360 ml Other 75 ml Output Urine Total 820 ml 860 ml # Bowel Movements 1 ET-Tube: 7.5 ET Position: 24 Ashvin Serrano MD Feb 15, 2018 19:18
[2018-02-16] VITALS (24 sets, daily range): BP systolic 138–168; BP diastolic 59–80
[2018-02-16] MEDS: LORazepam Inj 2mg/ml 1ml IV PRN ×3 (00:08→21:53)
[2018-02-16] MEDS: Ipratropium 0.02% Inh Soln 2.5ml UD HHN SCH ×4 (01:21→19:10)
[2018-02-16] MEDS: Levalbuterol Inh UD 1.25mg/0.5ml HHN SCH ×4 (01:21→19:10)
[2018-02-16] MEDS: Solu-MEDROL 125mg Inj IVP SCH (05:44)
[2018-02-16] MEDS: Piperacillin/Tazobactam 3.375 GM in D5W 110 ML IVPB SCH ×3 (05:44→21:53)
[2018-02-16] MEDS: dilTIAZem HCl 60mg tab ORAL SCH ×3 (05:45→21:54)
[2018-02-16] MEDS: Milk of Magnesia 30ml Ud ORAL SCH (08:53)
[2018-02-16] MEDS: Docusate 100mg cap ORAL SCH (08:53)
[2018-02-16] MEDS: Aspirin EC 81mg tab ORAL SCH (08:57)
[2018-02-16] MEDS: Heparin 5000 units/ml inj SUBQ SCH ×2 (08:57→21:00)
[2018-02-16] MEDS ORDERED: NS 275ml ONE (10:24)
[2018-02-16] MEDS ORDERED: Tubing IV Secondary IV ONE (10:24)
--- NOTE | 2018-02-16 11:04 | Critical Care Progress Note ---
Assessment/Plan Assessment/Plan IMPRESSION: Acute respiratory failure, COPD with acute exacerbation, respiratory acidosis and associated hypoxemia, cardiomegaly, pleural effusion and pulmonary edema, protein-calorie malnutrition. PLAN on vent respiratory care reviewed IV antibiotics IV steroids reduced supportive care monitor closely for now and ry to wean daughter- will update guarded feeds position change skin monitoring DVT prophylaxis medications/laboratory data/nursing notes/ICU care reviewed in detail note reviewed and edited care discussed with RN and RT ICU time spent 42 minutes Critical Care - Subjective Interval Events: reduced LOC on vent not weaning well orders in place ROS Limited/Unobtainable: Yes Condition: critical EKG Rhythm: Sinus Rhythm Residuals: minimal Tube Feeding Tolerated: yes I&O: Intake and Output 02/15/18 02/16/18 19:00 07:00 Intake Total 842.5 ml 730.0 ml Output Total 590 ml 573 ml Balance 252.5 ml 157.0 ml Free Water 80 ml 60 ml IV Total 432.5 ml 110.0 ml Tube Feeding 320 ml 560 ml Other 10 ml Output Urine Total 590 ml 570 ml Stool Total 3 ml Critical Care - Objective ET-Tube: 7.5 ET Position: 24 Last 24 Hour Vital Signs Date Time Temp Pulse Resp B/P (MAP) Pulse Ox O2 Delivery O2 Flow Rate FiO2 02/16/18 10:00 72 18 153/75 (101) 95 02/16/18 09:14 71 18 30 02/16/18 09:00 70 18 148/68 (94) 95 02/16/18 08:00 70 02/16/18 08:00 Mechanical Ventilator 02/16/18 08:00 98.8 70 14 154/70 (98) 98 98.8 02/16/18 08:00 30 02/16/18 07:55 79 12 98 Mechanical Ventilator 30 02/16/18 07:45 68 18 30 02/16/18 07:45 30 02/16/18 07:45 77 13 98 Mechanical Ventilator 30 02/16/18 07:00 79 16 153/73 (99) 98 02/16/18 06:00 71 16 150/70 (96) 98 02/16/18 05:45 68 155/74 02/16/18 05:12 73 12 30 02/16/18 05:00 69 14 154/72 (99) 98 02/16/18 04:00 30 02/16/18 04:00 Mechanical Ventilator 02/16/18 04:00 83 02/16/18 04:00 98.7 76 14 156/77 (103) 98 98.7 02/16/18 03:18 77 13 30 02/16/18 03:00 76 14 148/68 (94) 98 02/16/18 02:00 77 18 146/60 (88) 98 02/16/18 01:30 73 12 98 Mechanical Ventilator 30 02/16/18 01:21 73 13 97 Mechanical Ventilator 30 02/16/18 01:21 30 02/16/18 01:20 73 13 30 02/16/18 01:00 79 18 138/59 (85) 98 02/16/18 00:07 Mechanical Ventilator 02/16/18 00:00 76 02/16/18 00:00 98.4 78 17 164/79 (107) 94 98.4 02/16/18 00:00 Mechanical Ventilator 02/16/18 00:00 30 02/15/18 23:30 76 14 30 02/15/18 23:00 87 17 164/76 (105) 94 02/15/18 22:00 87 17 164/76 (105) 94 02/15/18 21:34 87 163/77 02/15/18 21:12 91 23 30 02/15/18 21:00 87 17 154/74 (100) 93 02/15/18 20:24 171/91 02/15/18 20:00 Mechanical Ventilator 02/15/18 20:00 30 02/15/18 20:00 80 02/15/18 20:00 98.5 80 17 178/86 (116) 99 98.5 02/15/18 19:55 84 12 100 Mechanical Ventilator 30 02/15/18 19:44 71 13 99 Mechanical Ventilator 30 02/15/18 19:44 30 02/15/18 19:43 70 13 30 02/15/18 19:00 79 20 180/90 (120) 99 02/15/18 19:00 65 16 176/92 (120) 98 02/15/18 18:00 69 16 142/80 (100) 98 02/15/18 17:02 72 23 30 02/15/18 17:00 70 14 147/83 (104) 98 02/15/18 16:00 66 12 142/80 (100) 96 02/15/18 16:00 Mechanical Ventilator 02/15/18 15:50 71 02/15/18 15:13 80 18 30 02/15/18 15:02 80 160/84 02/15/18 15:00 79 14 146/77 (100) 97 02/15/18 14:09 66 12 99 Mechanical Ventilator 30 02/15/18 14:00 67 12 142/78 (99) 98 02/15/18 14:00 73 12 99 Mechanical Ventilator 30 02/15/18 14:00 30 02/15/18 13:00 66 12 30 02/15/18 13:00 64 19 139/78 (98) 99 02/15/18 12:00 Mechanical Ventilator 02/15/18 12:00 72 02/15/18 12:00 30 02/15/18 12:00 97.8 72 13 140/79 (99) 98 97.8 Labs: Labs Test 02/14/18 08:30 02/14/18 09:00 02/14/18 10:28 02/15/18 05:34 Urine Color Pale yellow Urine Appearance Cloudy Urine pH 6.5 (4.5-8.0) Urine Specific [place] 1.010 (1.005-1.035) Urine Protein 3+ (NEGATIVE) Urine Glucose (UA) Negative (NEGATIVE) Urine Ketones Negative (NEGATIVE) Urine Blood 5+ (NEGATIVE) Urine Nitrite Negative (NEGATIVE) Urine Bilirubin Negative (NEGATIVE) Urine Urobilinogen Normal MG/DL (0.0-1.0) Urine Leukocyte Esterase 3+ (NEGATIVE) Urine RBC Tntc /HPF (0 - 2) Urine WBC 10-15 /HPF (0 - 2) Urine Squamous Epithelial Cells Occasional /LPF Urine Bacteria Few /HPF (NONE) White Blood Count 8.2 K/UL (4.8-10.8) Red Blood Count 5.20 M/UL (4.20-5.40) Hemoglobin 14.6 G/DL (12.0-16.0) Hematocrit 47.8 % (37.0-47.0) Mean Corpuscular Volume 92 FL (80-99) Mean Corpuscular Hemoglobin 28.0 PG (27.0-31.0) Mean Corpuscular Hemoglobin Concent 30.5 G/DL (32.0-36.0) Red Cell Distribution Width 13.7 % (11.6-14.8) Platelet Count 218 K/UL (150-450) Mean Platelet Volume 6.2 FL (6.5-10.1) Neutrophils (%) (Auto) % (45.0-75.0) Lymphocytes (%) (Auto) % (20.0-45.0) Monocytes (%) (Auto) % (1.0-10.0) Eosinophils (%) (Auto) % (0.0-3.0) Basophils (%) (Auto) % (0.0-2.0) Differential Total Cells Counted 100 Neutrophils % (Manual) 95 % (45-75) Lymphocytes % (Manual) 3 % (20-45) Monocytes % (Manual) 2 % (1-10) Eosinophils % (Manual) 0 % (0-3) Basophils % (Manual) 0 % (0-2) Band Neutrophils 0 % (0-8) Platelet Estimate Adequate Platelet Morphology Normal Sodium Level 138 MMOL/L (136-145) 142 MMOL/L (136-145) Potassium Level 3.6 MMOL/L (3.5-5.1) 3.2 MMOL/L (3.5-5.1) Chloride Level 105 MMOL/L (98-107) 106 MMOL/L (98-107) Carbon Dioxide Level 24 MMOL/L (21-32) 31 MMOL/L (21-32) Anion Gap 9 mmol/L (5-15) 6 mmol/L (5-15) Blood Urea Nitrogen 25 mg/dL (7-18) 20 mg/dL (7-18) Creatinine 0.6 MG/DL (0.55-1.30) 0.7 MG/DL (0.55-1.30) Estimat Glomerular Filtration Rate mL/min (>60) mL/min (>60) Glucose Level 140 MG/DL (74-106) 140 MG/DL (74-106) Calcium Level 9.2 MG/DL (8.5-10.1) 9.0 MG/DL (8.5-10.1) Total Bilirubin 0.3 MG/DL (0.2-1.0) 0.3 MG/DL (0.2-1.0) Aspartate Amino Transf (AST/SGOT) 11 U/L (15-37) 6 U/L (15-37) Alanine Aminotransferase (ALT/SGPT) 6 U/L (12-78) 15 U/L (12-78) Alkaline Phosphatase 61 U/L (46-116) 69 U/L (46-116) Total Protein 6.0 G/DL (6.4-8.2) 6.1 G/DL (6.4-8.2) Albumin 2.1 G/DL (3.4-5.0) 2.4 G/DL (3.4-5.0) Globulin 3.9 g/dL 3.7 g/dL Albumin/Globulin Ratio 0.5 (1.0-2.7) 0.6 (1.0-2.7) Arterial Blood pH 7.300 (7.350-7.450) Arterial Blood Partial Pressure CO2 58.4 mmHg (35.0-45.0) Arterial Blood Partial Pressure O2 85.2 mmHg (75.0-100.0) Arterial Blood HCO3 28.1 mmol/L (22.0-26.0) Arterial Blood Oxygen Saturation 95.4 % (95-100) Arterial Blood Base Excess 0.3 (-2-2) Tarun Test Positive Test 02/15/18 07:10 Arterial Blood pH 7.420 (7.350-7.450) Arterial Blood Partial Pressure CO2 48.6 mmHg (35.0-45.0) Arterial Blood Partial Pressure O2 140.1 mmHg (75.0-100.0) Arterial Blood HCO3 30.8 mmol/L (22.0-26.0) Arterial Blood Oxygen Saturation 98.9 % (95-100) Arterial Blood Base Excess 5.3 (-2-2) Tarun Test Positive Objective: GENERAL: sedated; on vent NECK: Supple. No adenopathy. No jugular venous distention. LUNGS: Moderate breath sounds. no rhonchi. No wheezes. reduced and stable CARDIAC: S1 and S2. Regular rhythm without murmurs, rubs, or gallops. ABDOMEN: Soft, nontender, nondistended. no HSM EXTREMITIES: No cyanosis, clubbing; trace edema. NEUROLOGIC: Grossly nonfocal, sedated reviewed and examined Micro: Microbiology Date/Time Source Procedure Growth Status 02/14/18 08:30 Indwelling Cath Urine Culture - Final NO GROWTH AFTER 48 HOURS Complete Accucheck: 140 Mk Billings MD Feb 16, 2018 11:04
--- NOTE | 2018-02-16 11:39 | General Progress Note ---
Assessment/Plan Problem List: (1) COPD exacerbation ICD Codes: J44.1 - Chronic obstructive pulmonary disease with (acute) exacerbation SNOMED: 023752111 (2) HTN (hypertension) ICD Codes: I10 - Essential (primary) hypertension SNOMED: 01177653 (3) Hypoxia ICD Codes: R09.02 - Hypoxemia SNOMED: 219235095 (4) Elevated troponin ICD Codes: R74.8 - Abnormal levels of other serum enzymes SNOMED: 562943412, 156244622, 100298920 (5) Renal insufficiency ICD Codes: N28.9 - Disorder of kidney and ureter, unspecified SNOMED: 052194526, 887042017 (6) Respiratory failure ICD Codes: J96.90 - Respiratory failure, unspecified, unspecified whether with hypoxia or hypercapnia SNOMED: 379332760 Qualifiers: Qualified Codes: J96.02 - Acute respiratory failure with hypercapnia (7) Right lower lobe pneumonia ICD Codes: J18.1 - Lobar pneumonia, unspecified organism SNOMED: 037813599 Qualifiers: Qualified Codes: J18.1 - Lobar pneumonia, unspecified organism Status: stable, progressing Assessment/Plan vent support resp rx wean per pulm check labs iv abx iv steroids keep dry prn anxiolytics ngt feeds ID eval called guarded Subjective ROS Limited/Unobtainable: Yes Constitutional: Reports: malaise, weakness HEENT: Reports: no symptoms Cardiovascular: Reports: no symptoms Respiratory: Reports: no symptoms Gastrointestinal/Abdominal: Reports: no symptoms Genitourinary: Reports: no symptoms Neurologic/Psychiatric: Reports: pre-existing deficit Endocrine: Reports: no symptoms Hematologic/Lymphatic: Reports: no symptoms Allergies: Coded Allergies: No Known Allergies (Unverified , 12/10/15) All Systems: reviewed and negative except above Subjective no events. w/o complaints. no fevers or chills. on the vent. tolerated wean for only 1 hr Objective Last 24 Hour Vital Signs Date Time Temp Pulse Resp B/P (MAP) Pulse Ox O2 Delivery O2 Flow Rate FiO2 02/16/18 11:15 68 18 30 02/16/18 11:00 68 18 155/78 (103) 96 02/16/18 10:00 72 18 153/75 (101) 95 02/16/18 09:14 71 18 30 02/16/18 09:00 70 18 148/68 (94) 95 02/16/18 08:00 70 02/16/18 08:00 Mechanical Ventilator 02/16/18 08:00 98.8 70 14 154/70 (98) 98 98.8 02/16/18 08:00 30 02/16/18 07:55 79 12 98 Mechanical Ventilator 30 02/16/18 07:45 68 18 30 02/16/18 07:45 30 02/16/18 07:45 77 13 98 Mechanical Ventilator 30 02/16/18 07:00 79 16 153/73 (99) 98 02/16/18 06:00 71 16 150/70 (96) 98 02/16/18 05:45 68 155/74 02/16/18 05:12 73 12 30 02/16/18 05:00 69 14 154/72 (99) 98 02/16/18 04:00 30 02/16/18 04:00 Mechanical Ventilator 02/16/18 04:00 83 02/16/18 04:00 98.7 76 14 156/77 (103) 98 98.7 02/16/18 03:18 77 13 30 02/16/18 03:00 76 14 148/68 (94) 98 02/16/18 02:00 77 18 146/60 (88) 98 02/16/18 01:30 73 12 98 Mechanical Ventilator 30 02/16/18 01:21 73 13 97 Mechanical Ventilator 30 02/16/18 01:21 30 02/16/18 01:20 73 13 30 02/16/18 01:00 79 18 138/59 (85) 98 02/16/18 00:07 Mechanical Ventilator 02/16/18 00:00 76 02/16/18 00:00 98.4 78 17 164/79 (107) 94 98.4 02/16/18 00:00 Mechanical Ventilator 02/16/18 00:00 30 02/15/18 23:30 76 14 30 02/15/18 23:00 87 17 164/76 (105) 94 02/15/18 22:00 87 17 164/76 (105) 94 02/15/18 21:34 87 163/77 02/15/18 21:12 91 23 30 02/15/18 21:00 87 17 154/74 (100) 93 02/15/18 20:24 171/91 02/15/18 20:00 Mechanical Ventilator 02/15/18 20:00 30 18 20:00 80 02/15/18 20:00 98.5 80 17 178/86 (116) 99 98.5 02/15/18 19:55 84 12 100 Mechanical Ventilator 30 02/15/18 19:44 71 13 99 Mechanical Ventilator 30 02/15/18 19:44 30 02/15/18 19:43 70 13 30 02/15/18 19:00 79 20 180/90 (120) 99 02/15/18 19:00 65 16 176/92 (120) 98 02/15/18 18:00 69 16 142/80 (100) 98 02/15/18 17:02 72 23 30 02/15/18 17:00 70 14 147/83 (104) 98 02/15/18 16:00 66 12 142/80 (100) 96 02/15/18 16:00 Mechanical Ventilator 02/15/18 15:50 71 02/15/18 15:13 80 18 30 02/15/18 15:02 80 160/84 02/15/18 15:00 79 14 146/77 (100) 97 02/15/18 14:09 66 12 99 Mechanical Ventilator 30 02/15/18 14:00 67 12 142/78 (99) 98 02/15/18 14:00 73 12 99 Mechanical Ventilator 30 02/15/18 14:00 30 02/15/18 13:00 66 12 30 02/15/18 13:00 64 19 139/78 (98) 99 02/15/18 12:00 Mechanical Ventilator 02/15/18 12:00 72 02/15/18 12:00 30 02/15/18 12:00 97.8 72 13 140/79 (99) 98 97.8 Intake and Output 02/15/18 02/16/18 19:00 07:00 Intake Total 842.5 ml 730.0 ml Output Total 590 ml 573 ml Balance 252.5 ml 157.0 ml Free Water 80 ml 60 ml IV Total 432.5 ml 110.0 ml Tube Feeding 320 ml 560 ml Other 10 ml Output Urine Total 590 ml 570 ml Stool Total 3 ml Height (Feet): 5 Height (Inches): 6.00 Weight (Pounds): 210 Objective General Appearance: WD/WN, resting. orally intubated, opens eyes Neck: supple Cardiovascular: regular rhythm Respiratory/Chest: lungs mostly clear, few rhonchi Abdomen: normal bowel sounds, non tender, soft, no organomegaly Edema: no edema noted Arm (L), no edema noted Arm (R), no edema noted Leg (L), no edema noted Leg (R), no edema noted Pedal (L), no edema noted Pedal (R), no edema noted Generalized Manan Byrd MD Feb 16, 2018 11:39
[2018-02-16 11:57] LABS: HEMATOCRIT 44.8 % (37.0-47.0); HEMOGLOBIN 13.8 G/DL (12.0-16.0); MEAN CORPUSCULAR VOLUME 90 FL (80-99); PLATELET COUNT 195 K/UL (150-450); RED BLOOD COUNT 4.98 M/UL (4.20-5.40); WHITE BLOOD COUNT 11.1 K/UL (4.8-10.8)
[2018-02-16 12:07] LABS: ALANINE AMINOTRANSFERASE 14 U/L (12-78); ALBUMIN 2.3 G/DL (3.4-5.0); ALBUMIN/GLOBULIN RATIO 0.7 (1.0-2.7); ALKALINE PHOSPHATASE 71 U/L (46-116); ANION GAP 7 mmol/L (5-15); ASPARTATE AMINO TRANSFERASE 7 U/L (15-37); BILIRUBIN,TOTAL 0.2 MG/DL (0.2-1.0); BLOOD UREA NITROGEN 19 mg/dL (7-18); CALCIUM 9.1 MG/DL (8.5-10.1); CARBON DIOXIDE 29 MMOL/L (21-32); CHLORIDE 104 MMOL/L (98-107); CREATININE 0.6 MG/DL (0.55-1.30); POTASSIUM 3.6 MMOL/L (3.5-5.1); SODIUM 140 MMOL/L (136-145)
[2018-02-17] VITALS (24 sets, daily range): BP systolic 88–178; BP diastolic 61–100
[2018-02-17] MEDS: Levalbuterol Inh UD 1.25mg/0.5ml HHN SCH ×4 (01:09→19:33)
[2018-02-17] MEDS: Ipratropium 0.02% Inh Soln 2.5ml UD HHN SCH ×4 (01:09→19:33)
[2018-02-17] MEDS: dilTIAZem HCl 60mg tab ORAL SCH ×3 (05:31→22:10)
[2018-02-17] MEDS: Piperacillin/Tazobactam 3.375 GM in D5W 110 ML IVPB SCH ×3 (05:31→21:54)
--- NOTE | 2018-02-17 07:57 | General Progress Note ---
Assessment/Plan Problem List: (1) COPD exacerbation ICD Codes: J44.1 - Chronic obstructive pulmonary disease with (acute) exacerbation SNOMED: 277119508 (2) HTN (hypertension) ICD Codes: I10 - Essential (primary) hypertension SNOMED: 61212968 (3) Hypoxia ICD Codes: R09.02 - Hypoxemia SNOMED: 030027227 (4) Elevated troponin ICD Codes: R74.8 - Abnormal levels of other serum enzymes SNOMED: 075155238, 321780536, 044584572 (5) Renal insufficiency ICD Codes: N28.9 - Disorder of kidney and ureter, unspecified SNOMED: 246039988, 034944503 (6) Respiratory failure ICD Codes: J96.90 - Respiratory failure, unspecified, unspecified whether with hypoxia or hypercapnia SNOMED: 913234634 Qualifiers: Qualified Codes: J96.02 - Acute respiratory failure with hypercapnia (7) Right lower lobe pneumonia ICD Codes: J18.1 - Lobar pneumonia, unspecified organism SNOMED: 685576397 Qualifiers: Qualified Codes: J18.1 - Lobar pneumonia, unspecified organism Status: stable, not improved Assessment/Plan vent support resp rx wean per pulm check labs in am iv abx iv steroids hold heparin due to hematuria keep dry prn anxiolytics ngt feeds ID eval called guarded Subjective ROS Limited/Unobtainable: Yes Constitutional: Reports: malaise, weakness HEENT: Reports: no symptoms Cardiovascular: Reports: no symptoms Respiratory: Reports: shortness of breath Gastrointestinal/Abdominal: Reports: no symptoms Genitourinary: Reports: no symptoms Neurologic/Psychiatric: Reports: anxiety Endocrine: Reports: no symptoms Hematologic/Lymphatic: Reports: no symptoms Allergies: Coded Allergies: No Known Allergies (Unverified , 12/10/15) All Systems: reviewed and negative except above Subjective no events. w/o complaints. no fevers or chills. on the vent.no weaning yesterday. hematuria Objective Last 24 Hour Vital Signs Date Time Temp Pulse Resp B/P (MAP) Pulse Ox O2 Delivery O2 Flow Rate FiO2 02/17/18 07:29 71 12 100 Mechanical Ventilator 30 02/17/18 07:29 30 02/17/18 07:22 71 13 30 02/17/18 07:20 71 13 99 Mechanical Ventilator 30 02/17/18 07:00 72 12 143/79 (100) 98 02/17/18 06:00 78 14 118/82 (94) 98 02/17/18 05:31 72 146/78 02/17/18 05:27 80 12 30 02/17/18 05:00 67 12 146/78 (100) 98 02/17/18 04:00 Mechanical Ventilator 02/17/18 04:00 98.3 69 12 146/73 (97) 97 98.3 02/17/18 04:00 30 02/17/18 03:30 67 12 30 02/17/18 03:11 74 02/17/18 03:00 73 14 150/71 (97) 98 02/17/18 02:00 78 17 135/69 (91) 98 02/17/18 01:19 77 15 100 Mechanical Ventilator 30 02/17/18 01:09 30 02/17/18 01:09 70 13 30 02/17/18 01:09 70 13 99 Mechanical Ventilator 30 02/17/18 01:00 74 15 144/72 (96) 98 02/17/18 00:45 74 02/17/18 00:00 Mechanical Ventilator 02/17/18 00:00 30 02/17/18 00:00 98.3 77 16 142/67 (92) 98 98.3 02/16/18 23:27 82 23 30 02/16/18 23:00 75 15 143/67 (92) 98 02/16/18 22:00 76 16 151/71 (97) 98 02/16/18 21:54 78 155/76 02/16/18 21:00 84 16 155/76 (102) 98 02/16/18 20:45 94 24 30 02/16/18 20:00 30 02/16/18 20:00 Mechanical Ventilator 02/16/18 20:00 98.4 89 16 149/66 (93) 97 98.4 02/16/18 19:59 87 02/16/18 19:24 82 14 100 Mechanical Ventilator 30 02/16/18 19:10 93 15 30 02/16/18 19:10 30 02/16/18 19:10 93 12 98 Mechanical Ventilator 30 02/16/18 19:00 85 16 151/72 (98) 100 02/16/18 18:00 98.6 90 14 153/66 (95) 95 98.6 02/16/18 17:36 169/80 02/16/18 17:00 79 16 168/80 (109) 94 02/16/18 16:57 65 16 30 02/16/18 16:00 Mechanical Ventilator 02/16/18 16:00 30 02/16/18 16:00 85 16 164/78 (106) 97 02/16/18 16:00 60 02/16/18 15:16 71 152/68 02/16/18 15:06 66 12 30 02/16/18 15:00 75 14 152/68 (96) 97 02/16/18 14:00 71 16 153/70 (97) 99 02/16/18 13:11 80 12 98 Mechanical Ventilator 30 02/16/18 13:04 63 12 30 02/16/18 13:04 30 02/16/18 13:04 64 12 98 Mechanical Ventilator 30 02/16/18 13:00 62 16 152/72 (98) 96 02/16/18 12:00 98.2 71 14 151/70 (97) 95 98.2 02/16/18 12:00 30 02/16/18 12:00 67 02/16/18 12:00 Mechanical Ventilator 02/16/18 11:15 68 18 30 02/16/18 11:00 68 18 155/78 (103) 96 02/16/18 10:00 72 18 153/75 (101) 95 02/16/18 09:14 71 18 30 02/16/18 09:00 70 18 148/68 (94) 95 02/16/18 08:00 70 02/16/18 08:00 Mechanical Ventilator 02/16/18 08:00 98.8 70 14 154/70 (98) 98 98.8 02/16/18 08:00 30 Intake and Output 02/16/18 02/17/18 19:00 07:00 Intake Total 852.5 ml 941.0 ml Output Total 490 ml 800 ml Balance 362.5 ml 141.0 ml IV Total 192.5 ml 151.0 ml Tube Feeding 660 ml 660 ml Other 130 ml Output Urine Total 490 ml 800 ml # Bowel Movements 3 Laboratory Tests 02/16/18 11:30: White Blood Count 11.1H, Red Blood Count 4.98, Hemoglobin 13.8, Hematocrit 44.8 , Mean Corpuscular Volume 90, Mean Corpuscular Hemoglobin 27.7, Mean Corpuscular Hemoglobin Concent 30.8L, Red Cell Distribution Width 14.0, Platelet Count 195, Mean Platelet Volume 6.4L, Neutrophils (%) (Auto) , Lymphocytes (%) (Auto) , Monocytes (%) (Auto) , Eosinophils (%) (Auto) , Basophils (%) (Auto) , Differential Total Cells Counted 100, Neutrophils % ( Manual) 97H, Lymphocytes % (Manual) 3L, Monocytes % (Manual) 0L, Eosinophils % ( Manual) 0, Basophils % (Manual) 0, Band Neutrophils 0, Platelet Estimate Adequate, Platelet Morphology Normal, Hypochromasia 1+, Sodium Level 140, Potassium Level 3.6, Chloride Level 104, Carbon Dioxide Level 29, Anion Gap 7, Blood Urea Nitrogen 19H, Creatinine 0.6, Estimat Glomerular Filtration Rate , Glucose Level 166H, Calcium Level 9.1, Total Bilirubin 0.2, Aspartate Amino Transf (AST/SGOT) 7L, Alanine Aminotransferase (ALT/SGPT) 14, Alkaline Phosphatase 71, Total Protein 5.7L, Albumin 2.3L, Globulin 3.4, Albumin/ Globulin Ratio 0.7L Height (Feet): 5 Height (Inches): 6.00 Weight (Pounds): 213 Objective General Appearance: WD/WN, resting. orally intubated, opens eyes Neck: supple Cardiovascular: regular rhythm Respiratory/Chest: lungs mostly clear, few rhonchi Abdomen: normal bowel sounds, non tender, soft, no organomegaly Edema: no edema noted Arm (L), no edema noted Arm (R), no edema noted Leg (L), no edema noted Leg (R), no edema noted Pedal (L), no edema noted Pedal (R), no edema noted Generalized Manan Byrd MD Feb 17, 2018 07:57
[2018-02-17] MEDS: Solu-MEDROL 125mg Inj IVP SCH (09:26)
[2018-02-17] MEDS: Milk of Magnesia 30ml Ud ORAL SCH (09:26)
[2018-02-17] MEDS ORDERED: Docusate 100mg/10ml Liq NG SCH (11:00)
[2018-02-17] MEDS ORDERED: Pantoprazole Inj IVP SCH (11:00)
--- NOTE | 2018-02-17 11:27 | Critical Care Progress Note ---
Assessment/Plan Assessment/Plan IMPRESSION: Acute respiratory failure, COPD with acute exacerbation, respiratory acidosis and associated hypoxemia, cardiomegaly, pleural effusion and pulmonary edema, protein-calorie malnutrition. PLAN on vent- difficulty with weaning respiratory care reviewed IV antibiotics IV steroids taper supportive care as able monitor closely for now and try to wean daily guarded feeds position change and monitor for change skin monitoring DVT prophylaxis medications/laboratory data/nursing notes/ICU care reviewed in detail note reviewed and edited care discussed with RN and RT ICU time spent 45 minutes Critical Care - Subjective Interval Events: on vent did not tolerate CPAP care as is solumedrol reduced ROS Limited/Unobtainable: Yes Condition: critical EKG Rhythm: Sinus Rhythm Residuals: minimal I&O: Intake and Output 02/16/18 02/17/18 19:00 07:00 Intake Total 852.5 ml 941.0 ml Output Total 490 ml 800 ml Balance 362.5 ml 141.0 ml IV Total 192.5 ml 151.0 ml Tube Feeding 660 ml 660 ml Other 130 ml Output Urine Total 490 ml 800 ml # Bowel Movements 3 Critical Care - Objective ET-Tube: 7.5 ET Position: 24 Last 24 Hour Vital Signs Date Time Temp Pulse Resp B/P (MAP) Pulse Ox O2 Delivery O2 Flow Rate FiO2 02/17/18 11:23 70 13 30 02/17/18 10:00 74 13 132/63 (86) 98 02/17/18 09:07 99 02/17/18 09:05 68 12 30 02/17/18 09:00 72 13 129/69 (89) 98 02/17/18 08:00 30 02/17/18 08:00 97.9 70 12 126/61 (82) 98 97.9 02/17/18 08:00 Mechanical Ventilator 02/17/18 07:29 71 12 100 Mechanical Ventilator 30 02/17/18 07:29 30 02/17/18 07:22 71 13 30 02/17/18 07:20 71 13 99 Mechanical Ventilator 30 02/17/18 07:00 72 12 143/79 (100) 98 02/17/18 06:00 78 14 118/82 (94) 98 02/17/18 05:31 72 146/78 02/17/18 05:27 80 12 30 02/17/18 05:00 67 12 146/78 (100) 98 02/17/18 04:00 Mechanical Ventilator 02/17/18 04:00 98.3 69 12 146/73 (97) 97 98.3 02/17/18 04:00 30 02/17/18 03:30 67 12 30 02/17/18 03:11 74 02/17/18 03:00 73 14 150/71 (97) 98 02/17/18 02:00 78 17 135/69 (91) 98 02/17/18 01:19 77 15 100 Mechanical Ventilator 30 02/17/18 01:09 30 02/17/18 01:09 70 13 30 02/17/18 01:09 70 13 99 Mechanical Ventilator 30 02/17/18 01:00 74 15 144/72 (96) 98 02/17/18 00:45 74 02/17/18 00:00 Mechanical Ventilator 02/17/18 00:00 30 02/17/18 00:00 98.3 77 16 142/67 (92) 98 98.3 02/16/18 23:27 82 23 30 02/16/18 23:00 75 15 143/67 (92) 98 02/16/18 22:00 76 16 151/71 (97) 98 02/16/18 21:54 78 155/76 02/16/18 21:00 84 16 155/76 (102) 98 02/16/18 20:45 94 24 30 02/16/18 20:00 30 02/16/18 20:00 Mechanical Ventilator 02/16/18 20:00 98.4 89 16 149/66 (93) 97 98.4 02/16/18 19:59 87 02/16/18 19:24 82 14 100 Mechanical Ventilator 30 02/16/18 19:10 93 15 30 18 19:10 30 02/16/18 19:10 93 12 98 Mechanical Ventilator 30 02/16/18 19:00 85 16 151/72 (98) 100 02/16/18 18:00 98.6 90 14 153/66 (95) 95 98.6 18 17:36 169/80 18 17:00 79 16 168/80 (109) 94 02/16/18 16:57 65 16 30 02/16/18 16:00 Mechanical Ventilator 02/16/18 16:00 30 02/16/18 16:00 85 16 164/78 (106) 97 02/16/18 16:00 60 02/16/18 15:16 71 152/68 02/16/18 15:06 66 12 30 02/16/18 15:00 75 14 152/68 (96) 97 02/16/18 14:00 71 16 153/70 (97) 99 02/16/18 13:11 80 12 98 Mechanical Ventilator 30 02/16/18 13:04 63 12 30 02/16/18 13:04 30 02/16/18 13:04 64 12 98 Mechanical Ventilator 30 02/16/18 13:00 62 16 152/72 (98) 96 02/16/18 12:00 98.2 71 14 151/70 (97) 95 98.2 02/16/18 12:00 30 02/16/18 12:00 67 02/16/18 12:00 Mechanical Ventilator Labs: Laboratory Tests Test 02/16/18 11:30 White Blood Count 11.1 K/UL (4.8-10.8) H Red Blood Count 4.98 M/UL (4.20-5.40) Hemoglobin 13.8 G/DL (12.0-16.0) Hematocrit 44.8 % (37.0-47.0) Mean Corpuscular Volume 90 FL (80-99) Mean Corpuscular Hemoglobin 27.7 PG (27.0-31.0) Mean Corpuscular Hemoglobin Concent 30.8 G/DL (32.0-36.0) L Red Cell Distribution Width 14.0 % (11.6-14.8) Platelet Count 195 K/UL (150-450) Mean Platelet Volume 6.4 FL (6.5-10.1) L Neutrophils (%) (Auto) % (45.0-75.0) Lymphocytes (%) (Auto) % (20.0-45.0) Monocytes (%) (Auto) % (1.0-10.0) Eosinophils (%) (Auto) % (0.0-3.0) Basophils (%) (Auto) % (0.0-2.0) Differential Total Cells Counted 100 Neutrophils % (Manual) 97 % (45-75) H Lymphocytes % (Manual) 3 % (20-45) L Monocytes % (Manual) 0 % (1-10) L Eosinophils % (Manual) 0 % (0-3) Basophils % (Manual) 0 % (0-2) Band Neutrophils 0 % (0-8) Platelet Estimate Adequate Platelet Morphology Normal Hypochromasia 1+ Sodium Level 140 MMOL/L (136-145) Potassium Level 3.6 MMOL/L (3.5-5.1) Chloride Level 104 MMOL/L (98-107) Carbon Dioxide Level 29 MMOL/L (21-32) Anion Gap 7 mmol/L (5-15) Blood Urea Nitrogen 19 mg/dL (7-18) H Creatinine 0.6 MG/DL (0.55-1.30) Estimat Glomerular Filtration Rate mL/min (>60) Glucose Level 166 MG/DL (74-106) H Calcium Level 9.1 MG/DL (8.5-10.1) Total Bilirubin 0.2 MG/DL (0.2-1.0) Aspartate Amino Transf (AST/SGOT) 7 U/L (15-37) L Alanine Aminotransferase (ALT/SGPT) 14 U/L (12-78) Alkaline Phosphatase 71 U/L (46-116) Total Protein 5.7 G/DL (6.4-8.2) L Albumin 2.3 G/DL (3.4-5.0) L Globulin 3.4 g/dL Albumin/Globulin Ratio 0.7 (1.0-2.7) L Objective: GENERAL: sedated; on vent; on AC NECK: Supple. No adenopathy. No jugular venous distention. orally intubated LUNGS: Moderate breath sounds. no rhonchi. No wheezes. reduced and stable CARDIAC: S1 and S2. Regular rhythm without murmurs, rubs, or gallops. ABDOMEN: Soft, nontender, nondistended. no HSM EXTREMITIES: No cyanosis, clubbing; trace edema. NEUROLOGIC: Grossly nonfocal, sedated reviewed and examined Accucheck: 140 Mk Billings MD Feb 17, 2018 11:27
[2018-02-17] MEDS ORDERED: [UNRECOGNIZED DRUG - OTHER] TOPIC SCH (13:00)
[2018-02-17] MEDS ORDERED: [UNRECOGNIZED DRUG - OTHER] TOPIC ONE (13:00)
[2018-02-17 18:51] LABS: APPEARANCE,URINE TURBID; BILIRUBIN, URINE NEGATIVE (NEGATIVE); GLUCOSE, URINE (UA) NEGATIVE (NEGATIVE); KETONES,URINE NEGATIVE (NEGATIVE); LEUKOCYTE ESTERASE ,URINE 3+ (NEGATIVE); NITRITE,URINE NEGATIVE (NEGATIVE); PH,URINE 7 (4.5-8.0); PROTEIN,URINE 3+ (NEGATIVE); UROBILINOGEN,URINE NORMAL MG/DL (0.0-1.0)
[2018-02-17 18:53] LABS: COLOR,URINE RED
--- NOTE | 2018-02-17 22:00 | Consultation ---
DATE OF CONSULTATION: 02/17/2018 INFECTIOUS DISEASE CONSULTATION CONSULTING PHYSICIAN: Amado Estrella M.D. This consult is for coverage of Dr. Macias. PRIMARY ATTENDING PHYSICIAN: Manan Byrd M.D. REASON FOR CONSULT: Head lice, also pneumonia, COPD. HISTORY OF PRESENT ILLNESS: This is a 72-year-old female admitted on 02/03/2018, from a detention facility because of altered mental status. She was found to have respiratory failure, was put on BiPAP, did not work, and the patient subsequently intubated. After a couple of days, the patient was extubated. Again, the patient was intubated on 02/12/2018, because of hypercapnic respiratory failure. Since then, it was difficult to wean the patient from the ventilator and the patient is still in ICU. The patient has had lice and got a dose of permethrin on 02/15/2018. PAST MEDICAL HISTORY: COPD, hypertension, anemia, alcohol abuse, diabetes type 2. MEDICATIONS: Protonix, Colace, methylprednisolone, levalbuterol, ipratropium, Zosyn, fluoxetine, magnesium, Spiriva, Cardizem, hydralazine, lorazepam,Tylenol, bisacodyl. SOCIAL HISTORY: senior living resident. She has history of alcohol use in the past and has history of smoking. No other history obtainable by the patient. PHYSICAL EXAMINATION: VITAL SIGNS: Temperature 97.9, pulse 70, and blood pressure is 135/70. GENERAL: The patient is not communicative. HEAD AND NECK: Orally intubated, has NG tube. HEART: Normal rate. She has peripheral line. LUNGS: She has few rhonchi, on ventilator. ABDOMEN: Soft, nontender. EXTREMITIES: No edema. GENITOURINARY: She has Cochran catheter and has hematuria. LABORATORY AND DIAGNOSTIC DATA: Sodium 140, potassium 3.6, chloride 104, bicarbonate 29, BUN 19, creatinine 0.6, and glucose 166. WBC 11.1, hemoglobin 13.9, hematocrit 44.8, platelet platelet 95,000. Blood culture x1, negative. Urine culture, negative. chest x-ray was done on 02/12/2018, showed bilateral pleural and parenchymal opacity that was improved. IMPRESSION: Head lice, pediculosis. The patient had one treatment, but according to the nurse, she still has viable lice. The patient has pneumonia, has COPD, has respiratory failure with hypercapnia, anemia, diabetes type 2, protein-calorie malnutrition, hematuria. RECOMMENDATION: We will continue with Zosyn. We will give another dose of permethrin. We will follow up the chest x-ray. At the end of my exam, I thank Dr. Manan Byrd for involving me in the care of this patient. Amado Estrella M.D. DR: Magdaleno JOB#: [id number] CC: [email or web address]
[2018-02-18] VITALS (24 sets, daily range): BP systolic 124–177; BP diastolic 65–96
[2018-02-18] MEDS: Levalbuterol Inh UD 1.25mg/0.5ml HHN SCH ×4 (01:03→18:55)
[2018-02-18] MEDS: Ipratropium 0.02% Inh Soln 2.5ml UD HHN SCH ×4 (01:03→18:55)
[2018-02-18] MEDS: LORazepam Inj 2mg/ml 1ml IV PRN (02:26)
[2018-02-18 05:29] LABS: HEMATOCRIT 46.1 % (37.0-47.0); HEMOGLOBIN 14.8 G/DL (12.0-16.0); MEAN CORPUSCULAR VOLUME 89 FL (80-99); PLATELET COUNT 141 K/UL (150-450); RED CELL DISTRIBUTION WIDTH 14.3 % (11.6-14.8); WHITE BLOOD COUNT 11.1 K/UL (4.8-10.8)
[2018-02-18 05:41] LABS: ALANINE AMINOTRANSFERASE 15 U/L (12-78); ALBUMIN 2.3 G/DL (3.4-5.0); ALBUMIN/GLOBULIN RATIO 0.6 (1.0-2.7); ALKALINE PHOSPHATASE 82 U/L (46-116); ANION GAP 5 mmol/L (5-15); ASPARTATE AMINO TRANSFERASE 8 U/L (15-37); BILIRUBIN,TOTAL 0.3 MG/DL (0.2-1.0); BLOOD UREA NITROGEN 17 mg/dL (7-18); CALCIUM 8.9 MG/DL (8.5-10.1); CARBON DIOXIDE 31 MMOL/L (21-32); CHLORIDE 104 MMOL/L (98-107); CREATININE 0.6 MG/DL (0.55-1.30); POTASSIUM 3.8 MMOL/L (3.5-5.1); SODIUM 140 MMOL/L (136-145)
[2018-02-18] MEDS: dilTIAZem HCl 60mg tab ORAL SCH ×3 (06:24→21:55)
[2018-02-18] MEDS: Piperacillin/Tazobactam 3.375 GM in D5W 110 ML IVPB SCH ×3 (06:24→21:54)
--- NOTE | 2018-02-18 07:46 | General Progress Note ---
Assessment/Plan Problem List: (1) COPD exacerbation ICD Codes: J44.1 - Chronic obstructive pulmonary disease with (acute) exacerbation SNOMED: 959090292 (2) HTN (hypertension) ICD Codes: I10 - Essential (primary) hypertension SNOMED: 42519979 (3) Hypoxia ICD Codes: R09.02 - Hypoxemia SNOMED: 062266509 (4) Elevated troponin ICD Codes: R74.8 - Abnormal levels of other serum enzymes SNOMED: 067784747, 493804612, 942992914 (5) Renal insufficiency ICD Codes: N28.9 - Disorder of kidney and ureter, unspecified SNOMED: 868880183, 257970771 (6) Respiratory failure ICD Codes: J96.90 - Respiratory failure, unspecified, unspecified whether with hypoxia or hypercapnia SNOMED: 063380216 Qualifiers: Qualified Codes: J96.02 - Acute respiratory failure with hypercapnia (7) Right lower lobe pneumonia ICD Codes: J18.1 - Lobar pneumonia, unspecified organism SNOMED: 018382310 Qualifiers: Qualified Codes: J18.1 - Lobar pneumonia, unspecified organism Status: stable, progressing Assessment/Plan vent support resp rx wean per pulm iv abx per id follow pending cxr iv steroids hold heparin/asa due to hematuria follow up urince culture keep dry prn anxiolytics ngt feeds ID appreciated guarded Subjective ROS Limited/Unobtainable: Yes Constitutional: Reports: malaise, weakness HEENT: Reports: no symptoms Cardiovascular: Reports: no symptoms Respiratory: Reports: shortness of breath Gastrointestinal/Abdominal: Reports: no symptoms Genitourinary: Reports: no symptoms Neurologic/Psychiatric: Reports: anxiety Endocrine: Reports: no symptoms Hematologic/Lymphatic: Reports: no symptoms Allergies: Coded Allergies: No Known Allergies (Unverified , 12/10/15) All Systems: reviewed and negative except above Subjective no overnight events. remains on the vent. did not tolerate wean- 10min. no fevers. less hematuria. Objective Last 24 Hour Vital Signs Date Time Temp Pulse Resp B/P (MAP) Pulse Ox O2 Delivery O2 Flow Rate FiO2 02/18/18 07:00 75 12 126/68 (87) 100 02/18/18 06:58 30 02/18/18 06:58 73 12 98 Mechanical Ventilator 30 02/18/18 06:52 69 13 30 02/18/18 06:51 69 13 96 Mechanical Ventilator 30 02/18/18 06:24 78 154/86 02/18/18 06:00 78 12 154/86 (108) 100 02/18/18 05:25 78 12 30 02/18/18 05:00 71 12 160/81 (107) 100 02/18/18 04:00 98.9 76 12 163/80 (107) 100 98.9 02/18/18 04:00 Mechanical Ventilator 02/18/18 04:00 30 02/18/18 04:00 73 02/18/18 03:15 75 15 30 02/18/18 03:00 75 12 166/79 (108) 100 02/18/18 02:26 177/96 02/18/18 02:00 81 12 162/82 (108) 100 02/18/18 01:13 65 12 99 Mechanical Ventilator 30 02/18/18 01:03 65 12 30 02/18/18 01:03 65 12 97 Mechanical Ventilator 30 02/18/18 01:03 30 02/18/18 01:00 65 16 177/96 (123) 100 02/18/18 00:00 Mechanical Ventilator 02/18/18 00:00 98.5 67 18 165/92 (116) 100 98.5 02/17/18 23:09 66 12 30 02/17/18 23:00 65 18 178/100 (126) 100 02/17/18 22:10 66 170/88 02/17/18 22:00 67 16 88/80 (83) 100 02/17/18 21:00 69 19 160/80 (106) 100 02/17/18 21:00 73 18 30 02/17/18 20:00 30 02/17/18 20:00 99.0 71 20 149/75 (99) 100 99.0 02/17/18 20:00 68 02/17/18 20:00 Mechanical Ventilator 02/17/18 19:42 68 15 99 Mechanical Ventilator 30 02/17/18 19:32 30 02/17/18 19:32 71 15 99 Mechanical Ventilator 30 02/17/18 19:30 71 15 30 02/17/18 19:00 64 16 150/80 (103) 98 02/17/18 18:00 69 16 156/84 (108) 98 02/17/18 17:00 77 15 157/87 (110) 98 02/17/18 16:47 73 13 30 02/17/18 16:00 30 02/17/18 16:00 Mechanical Ventilator 02/17/18 16:00 81 02/17/18 16:00 98.2 74 12 147/83 (104) 97 98.2 02/17/18 15:43 71 13 30 02/17/18 15:00 69 12 128/66 (86) 98 02/17/18 14:15 65 150/75 02/17/18 14:00 66 12 150/75 (100) 99 02/17/18 13:35 74 12 100 Mechanical Ventilator 30 02/17/18 13:34 30 02/17/18 13:06 66 12 30 02/17/18 13:05 65 12 99 Mechanical Ventilator 30 02/17/18 13:00 65 12 141/80 (100) 99 02/17/18 12:00 66 02/17/18 12:00 98.0 66 12 145/87 (106) 100 98.0 02/17/18 12:00 Mechanical Ventilator 02/17/18 12:00 30 02/17/18 11:23 70 13 30 02/17/18 11:00 70 14 135/70 (91) 99 02/17/18 10:00 74 13 132/63 (86) 98 02/17/18 09:07 99 02/17/18 09:05 68 12 30 02/17/18 09:00 72 13 129/69 (89) 98 02/17/18 08:00 70 02/17/18 08:00 30 02/17/18 08:00 97.9 70 12 126/61 (82) 98 97.9 02/17/18 08:00 Mechanical Ventilator Intake and Output 02/17/18 02/18/18 19:00 07:00 Intake Total 385 ml 880 ml Output Total 770 ml 1180 ml Balance -385 ml -300 ml IV Total 220 ml Tube Feeding 385 ml 660 ml Output Urine Total 770 ml 1180 ml # Bowel Movements 1 Laboratory Tests 02/17/18 18:17: Urine Color Red, Urine Appearance Turbid, Urine pH 7, Urine Specific [place] 1.010, Urine Protein 3+H, Urine Glucose (UA) Negative, Urine Ketones Negative, Urine Blood 5+H, Urine Nitrite Negative, Urine Bilirubin Negative, Urine Urobilinogen Normal, Urine Leukocyte Esterase 3+H, Urine RBC TntcH, Urine WBC 15 -20H, Urine Squamous Epithelial Cells Few, Urine Bacteria Few 02/18/18 04:00: White Blood Count 11.1H, Red Blood Count 5.20, Hemoglobin 14.8, Hematocrit 46.1 , Mean Corpuscular Volume 89, Mean Corpuscular Hemoglobin 28.4, Mean Corpuscular Hemoglobin Concent 32.0, Red Cell Distribution Width 14.3, Platelet Count 141L, Mean Platelet Volume 6.8, Neutrophils (%) (Auto) , Lymphocytes (%) ( Auto) , Monocytes (%) (Auto) , Eosinophils (%) (Auto) , Basophils (%) (Auto) , Neutrophils % (Manual) [Pending], Lymphocytes % (Manual) [Pending], Platelet Estimate [Pending], Platelet Morphology [Pending], Sodium Level 140, Potassium Level 3.8, Chloride Level 104, Carbon Dioxide Level 31, Anion Gap 5, Blood Urea Nitrogen 17, Creatinine 0.6, Estimat Glomerular Filtration Rate , Glucose Level 125H, Calcium Level 8.9, Total Bilirubin 0.3, Aspartate Amino Transf (AST/SGOT) 8L, Alanine Aminotransferase (ALT/SGPT) 15, Alkaline Phosphatase 82, Total Protein 5.9L, Albumin 2.3L, Globulin 3.6, Albumin/Globulin Ratio 0.6L Height (Feet): 5 Height (Inches): 6.00 Weight (Pounds): 209 Objective General Appearance: WD/WN, resting. orally intubated, opens eyes Neck: supple Cardiovascular: regular rhythm Respiratory/Chest: lungs mostly clear, few rhonchi Abdomen: normal bowel sounds, non tender, soft, no organomegaly Edema: no edema noted Arm (L), no edema noted Arm (R), no edema noted Leg (L), no edema noted Leg (R), no edema noted Pedal (L), no edema noted Pedal (R), no edema noted Generalized Manan Byrd MD Feb 18, 2018 07:46
[2018-02-18] MEDS: Solu-MEDROL 125mg Inj IVP SCH (08:35)
[2018-02-18] MEDS: Pantoprazole Inj IVP SCH (08:36)
--- NOTE | 2018-02-18 08:41 | Critical Care Progress Note ---
Assessment/Plan Assessment/Plan IMPRESSION: Acute respiratory failure, COPD with acute exacerbation, respiratory acidosis and associated hypoxemia, cardiomegaly, pleural effusion and pulmonary edema, protein-calorie malnutrition. PLAN on vent- difficulty with weaning- retry today respiratory care reviewed IV antibiotics IV steroids taper- further today; no wheeze supportive care as able monitor closely for now and try to wean daily guarded feeds position change and monitor for change skin monitoring DVT prophylaxis hope to avoid trach medications/laboratory data/nursing notes/ICU care reviewed in detail note reviewed and edited care discussed with RN and RT ICU time spent 38 minutes Critical Care - Subjective Interval Events: on vent altered not weaning ROS Limited/Unobtainable: Yes Condition: critical EKG Rhythm: Sinus Rhythm Residuals: minimal Tube Feeding Tolerated: yes I&O: Intake and Output 02/17/18 02/18/18 19:00 07:00 Intake Total 385 ml 880 ml Output Total 770 ml 1180 ml Balance -385 ml -300 ml IV Total 220 ml Tube Feeding 385 ml 660 ml Output Urine Total 770 ml 1180 ml # Bowel Movements 1 Critical Care - Objective ET-Tube: 7.5 ET Position: 23 Last 24 Hour Vital Signs Date Time Temp Pulse Resp B/P (MAP) Pulse Ox O2 Delivery O2 Flow Rate FiO2 02/18/18 08:00 30 02/18/18 08:00 Mechanical Ventilator 02/18/18 08:00 98.6 70 16 140/70 (93) 96 98.6 02/18/18 07:00 75 12 126/68 (87) 100 02/18/18 06:58 30 02/18/18 06:58 73 12 98 Mechanical Ventilator 30 02/18/18 06:52 69 13 30 02/18/18 06:51 69 13 96 Mechanical Ventilator 30 02/18/18 06:24 78 154/86 02/18/18 06:00 78 12 154/86 (108) 100 02/18/18 05:25 78 12 30 02/18/18 05:00 71 12 160/81 (107) 100 02/18/18 04:00 98.9 76 12 163/80 (107) 100 98.9 02/18/18 04:00 Mechanical Ventilator 02/18/18 04:00 30 02/18/18 04:00 73 02/18/18 03:15 75 15 30 02/18/18 03:00 75 12 166/79 (108) 100 02/18/18 02:26 177/96 02/18/18 02:00 81 12 162/82 (108) 100 02/18/18 01:13 65 12 99 Mechanical Ventilator 30 02/18/18 01:03 65 12 30 02/18/18 01:03 65 12 97 Mechanical Ventilator 30 02/18/18 01:03 30 02/18/18 01:00 65 16 177/96 (123) 100 02/18/18 00:00 Mechanical Ventilator 02/18/18 00:00 98.5 67 18 165/92 (116) 100 98.5 02/17/18 23:09 66 12 30 02/17/18 23:00 65 18 178/100 (126) 100 02/17/18 22:10 66 170/88 02/17/18 22:00 67 16 88/80 (83) 100 02/17/18 21:00 69 19 160/80 (106) 100 02/17/18 21:00 73 18 30 02/17/18 20:00 30 02/17/18 20:00 99.0 71 20 149/75 (99) 100 99.0 02/17/18 20:00 68 02/17/18 20:00 Mechanical Ventilator 02/17/18 19:42 68 15 99 Mechanical Ventilator 30 02/17/18 19:32 30 02/17/18 19:32 71 15 99 Mechanical Ventilator 30 02/17/18 19:30 71 15 30 02/17/18 19:00 64 16 150/80 (103) 98 02/17/18 18:00 69 16 156/84 (108) 98 02/17/18 17:00 77 15 157/87 (110) 98 02/17/18 16:47 73 13 30 02/17/18 16:00 30 02/17/18 16:00 Mechanical Ventilator 02/17/18 16:00 81 02/17/18 16:00 98.2 74 12 147/83 (104) 97 98.2 02/17/18 15:43 71 13 30 02/17/18 15:00 69 12 128/66 (86) 98 02/17/18 14:15 65 150/75 02/17/18 14:00 66 12 150/75 (100) 99 02/17/18 13:35 74 12 100 Mechanical Ventilator 30 02/17/18 13:34 30 02/17/18 13:06 66 12 30 02/17/18 13:05 65 12 99 Mechanical Ventilator 30 02/17/18 13:00 65 12 141/80 (100) 99 02/17/18 12:00 66 02/17/18 12:00 98.0 66 12 145/87 (106) 100 98.0 02/17/18 12:00 Mechanical Ventilator 02/17/18 12:00 30 02/17/18 11:23 70 13 30 02/17/18 11:00 70 14 135/70 (91) 99 02/17/18 10:00 74 13 132/63 (86) 98 02/17/18 09:07 99 02/17/18 09:05 68 12 30 02/17/18 09:00 72 13 129/69 (89) 98 Labs: Labs Test 02/16/18 11:30 02/17/18 18:17 02/18/18 04:00 White Blood Count 11.1 K/UL (4.8-10.8) 11.1 K/UL (4.8-10.8) Red Blood Count 4.98 M/UL (4.20-5.40) 5.20 M/UL (4.20-5.40) Hemoglobin 13.8 G/DL (12.0-16.0) 14.8 G/DL (12.0-16.0) Hematocrit 44.8 % (37.0-47.0) 46.1 % (37.0-47.0) Mean Corpuscular Volume 90 FL (80-99) 89 FL (80-99) Mean Corpuscular Hemoglobin 27.7 PG (27.0-31.0) 28.4 PG (27.0-31.0) Mean Corpuscular Hemoglobin Concent 30.8 G/DL (32.0-36.0) 32.0 G/DL (32.0-36.0) Red Cell Distribution Width 14.0 % (11.6-14.8) 14.3 % (11.6-14.8) Platelet Count 195 K/UL (150-450) 141 K/UL (150-450) Mean Platelet Volume 6.4 FL (6.5-10.1) 6.8 FL (6.5-10.1) Neutrophils (%) (Auto) % (45.0-75.0) % (45.0-75.0) Lymphocytes (%) (Auto) % (20.0-45.0) % (20.0-45.0) Monocytes (%) (Auto) % (1.0-10.0) % (1.0-10.0) Eosinophils (%) (Auto) % (0.0-3.0) % (0.0-3.0) Basophils (%) (Auto) % (0.0-2.0) % (0.0-2.0) Differential Total Cells Counted 100 Neutrophils % (Manual) 97 % (45-75) Lymphocytes % (Manual) 3 % (20-45) Monocytes % (Manual) 0 % (1-10) Eosinophils % (Manual) 0 % (0-3) Basophils % (Manual) 0 % (0-2) Band Neutrophils 0 % (0-8) Platelet Estimate Adequate Platelet Morphology Normal Hypochromasia 1+ Sodium Level 140 MMOL/L (136-145) 140 MMOL/L (136-145) Potassium Level 3.6 MMOL/L (3.5-5.1) 3.8 MMOL/L (3.5-5.1) Chloride Level 104 MMOL/L (98-107) 104 MMOL/L (98-107) Carbon Dioxide Level 29 MMOL/L (21-32) 31 MMOL/L (21-32) Anion Gap 7 mmol/L (5-15) 5 mmol/L (5-15) Blood Urea Nitrogen 19 mg/dL (7-18) 17 mg/dL (7-18) Creatinine 0.6 MG/DL (0.55-1.30) 0.6 MG/DL (0.55-1.30) Estimat Glomerular Filtration Rate mL/min (>60) mL/min (>60) Glucose Level 166 MG/DL (74-106) 125 MG/DL (74-106) Calcium Level 9.1 MG/DL (8.5-10.1) 8.9 MG/DL (8.5-10.1) Total Bilirubin 0.2 MG/DL (0.2-1.0) 0.3 MG/DL (0.2-1.0) Aspartate Amino Transf (AST/SGOT) 7 U/L (15-37) 8 U/L (15-37) Alanine Aminotransferase (ALT/SGPT) 14 U/L (12-78) 15 U/L (12-78) Alkaline Phosphatase 71 U/L (46-116) 82 U/L (46-116) Total Protein 5.7 G/DL (6.4-8.2) 5.9 G/DL (6.4-8.2) Albumin 2.3 G/DL (3.4-5.0) 2.3 G/DL (3.4-5.0) Globulin 3.4 g/dL 3.6 g/dL Albumin/Globulin Ratio 0.7 (1.0-2.7) 0.6 (1.0-2.7) Urine Color Red Urine Appearance Turbid Urine pH 7 (4.5-8.0) Urine Specific [place] 1.010 (1.005-1.035) Urine Protein 3+ (NEGATIVE) Urine Glucose (UA) Negative (NEGATIVE) Urine Ketones Negative (NEGATIVE) Urine Blood 5+ (NEGATIVE) Urine Nitrite Negative (NEGATIVE) Urine Bilirubin Negative (NEGATIVE) Urine Urobilinogen Normal MG/DL (0.0-1.0) Urine Leukocyte Esterase 3+ (NEGATIVE) Urine RBC Tntc /HPF (0 - 2) Urine WBC 15-20 /HPF (0 - 2) Urine Squamous Epithelial Cells Few /LPF (NONE/OCC) Urine Bacteria Few /HPF (NONE) Objective: GENERAL: sedated/withdrawn; on vent; on AC NECK: Supple. No adenopathy. No jugular venous distention. orally intubated LUNGS: Moderate breath sounds. no rhonchi. No wheezes. reduced and stable overnight CARDIAC: S1 and S2. Regular rhythm without murmurs, rubs, or gallops. ABDOMEN: Soft, nontender, nondistended. no HSM; feeding tube in place EXTREMITIES: No cyanosis, clubbing; trace edema. NEUROLOGIC: Grossly nonfocal, sedated reviewed and examined Accucheck: 140 Mk Billings MD Feb 18, 2018 08:41
[2018-02-18] MEDS ORDERED: Solu-MEDROL 125mg Inj IVP SCH (09:00)
[2018-02-18] MEDS ORDERED: Docusate 100mg/10ml Liq NG SCH (09:00)
--- NOTE | 2018-02-18 11:17 | Diagnostic Imaging Report ---
Indication: Dyspnea Comparison: 02/12/2018 A single view chest radiograph was obtained. Findings: Endotracheal tube position is unchanged. NG tube faintly seen over the upper abdomen. There is a probable left pleural effusion. Interstitial edema suspected. IMPRESSION: Slightly lower lung volumes. Accounting for this there may be little to no change. Mild interstitial edema may be present. Correlate clinically.
--- NOTE | 2018-02-18 17:42 | Infectious Diseases Prog Note ---
Assessment/Plan Assessment/Plan A; Head lice treated COPD Pneumonia Anemia Hypercapnic respiratory failure resolving P: Continue Zosyn Subjective Constitutional: Reports: no symptoms Respiratory: Reports: shortness of breath, dry cough, other - extubated today Musculoskeletal: Reports: pain, other - back Allergies: Coded Allergies: No Known Allergies (Unverified , 12/10/15) Objective Vital Signs Last 24 Hour Vital Signs Date Time Temp Pulse Resp B/P (MAP) Pulse Ox O2 Delivery O2 Flow Rate FiO2 02/18/18 17:00 82 16 128/65 (86) 98 02/18/18 16:11 85 18 Nasal Cannula 3.0 32 02/18/18 16:00 76 02/18/18 16:00 98.0 78 12 135/85 (102) 97 98.0 02/18/18 16:00 Nasal Cannula 2.0 02/18/18 15:22 76 20 30 02/18/18 15:00 72 16 134/67 (89) 97 02/18/18 14:43 98 02/18/18 14:00 79 16 166/92 (116) 97 02/18/18 13:46 164/85 02/18/18 13:45 77 164/85 02/18/18 13:00 Mechanical Ventilator 30 02/18/18 13:00 69 16 164/89 (114) 100 02/18/18 13:00 Mechanical Ventilator 30 02/18/18 12:30 81 22 30 02/18/18 12:00 Mechanical Ventilator 02/18/18 12:00 98.4 70 16 154/88 (110) 96 98.4 02/18/18 12:00 74 02/18/18 12:00 30 02/18/18 11:00 76 16 135/85 (102) 100 02/18/18 10:59 80 17 30 02/18/18 10:00 75 16 134/79 (97) 100 02/18/18 09:25 77 12 30 02/18/18 09:00 73 14 140/70 (93) 100 02/18/18 09:00 79 17 144/79 (100) 100 02/18/18 08:00 30 02/18/18 08:00 Mechanical Ventilator 02/18/18 08:00 74 02/18/18 08:00 98.6 70 16 140/70 (93) 96 98.6 02/18/18 07:00 75 12 126/68 (87) 100 02/18/18 06:58 30 02/18/18 06:58 73 12 98 Mechanical Ventilator 30 02/18/18 06:52 69 13 30 02/18/18 06:51 69 13 96 Mechanical Ventilator 30 02/18/18 06:24 78 154/86 02/18/18 06:00 78 12 154/86 (108) 100 02/18/18 05:25 78 12 30 02/18/18 05:00 71 12 160/81 (107) 100 02/18/18 04:00 98.9 76 12 163/80 (107) 100 98.9 02/18/18 04:00 Mechanical Ventilator 02/18/18 04:00 30 02/18/18 04:00 73 02/18/18 03:15 75 15 30 02/18/18 03:00 75 12 166/79 (108) 100 02/18/18 02:26 177/96 02/18/18 02:00 81 12 162/82 (108) 100 02/18/18 01:13 65 12 99 Mechanical Ventilator 30 02/18/18 01:03 65 12 30 02/18/18 01:03 65 12 97 Mechanical Ventilator 30 02/18/18 01:03 30 02/18/18 01:00 65 16 177/96 (123) 100 02/18/18 00:00 Mechanical Ventilator 02/18/18 00:00 98.5 67 18 165/92 (116) 100 98.5 02/17/18 23:09 66 12 30 02/17/18 23:00 65 18 178/100 (126) 100 02/17/18 22:10 66 170/88 02/17/18 22:00 67 16 88/80 (83) 100 02/17/18 21:00 69 19 160/80 (106) 100 02/17/18 21:00 73 18 30 02/17/18 20:00 30 02/17/18 20:00 99.0 71 20 149/75 (99) 100 99.0 02/17/18 20:00 68 02/17/18 20:00 Mechanical Ventilator 02/17/18 19:42 68 15 99 Mechanical Ventilator 30 02/17/18 19:32 30 02/17/18 19:32 71 15 99 Mechanical Ventilator 30 02/17/18 19:30 71 15 30 02/17/18 19:00 64 16 150/80 (103) 98 02/17/18 18:00 69 16 156/84 (108) 98 Height (Feet): 5 Height (Inches): 6.00 Weight (Pounds): 209 HEENT: mucous membranes moist Respiratory/Chest: lungs clear Cardiovascular: normal rate Abdomen: soft, non tender Extremities: no edema Neurologic/Psychiatric: alert, responsive Laboratory Tests Test 02/17/18 18:17 02/18/18 04:00 02/18/18 14:11 Urine Color Red Urine Appearance Turbid Urine pH 7 (4.5-8.0) Urine Specific [place] 1.010 (1.005-1.035) Urine Protein 3+ (NEGATIVE) H Urine Glucose (UA) Negative (NEGATIVE) Urine Ketones Negative (NEGATIVE) Urine Blood 5+ (NEGATIVE) H Urine Nitrite Negative (NEGATIVE) Urine Bilirubin Negative (NEGATIVE) Urine Urobilinogen Normal MG/DL (0.0-1.0) Urine Leukocyte Esterase 3+ (NEGATIVE) H Urine RBC Tntc /HPF (0 - 2) H Urine WBC 15-20 /HPF (0 - 2) H Urine Squamous Epithelial Cells Few /LPF (NONE/OCC) Urine Bacteria Few /HPF (NONE) White Blood Count 11.1 K/UL (4.8-10.8) H Red Blood Count 5.20 M/UL (4.20-5.40) Hemoglobin 14.8 G/DL (12.0-16.0) Hematocrit 46.1 % (37.0-47.0) Mean Corpuscular Volume 89 FL (80-99) Mean Corpuscular Hemoglobin 28.4 PG (27.0-31.0) Mean Corpuscular Hemoglobin Concent 32.0 G/DL (32.0-36.0) Red Cell Distribution Width 14.3 % (11.6-14.8) Platelet Count 141 K/UL (150-450) L Mean Platelet Volume 6.8 FL (6.5-10.1) Neutrophils (%) (Auto) % (45.0-75.0) Lymphocytes (%) (Auto) % (20.0-45.0) Monocytes (%) (Auto) % (1.0-10.0) Eosinophils (%) (Auto) % (0.0-3.0) Basophils (%) (Auto) % (0.0-2.0) Differential Total Cells Counted 100 Neutrophils % (Manual) 91 % (45-75) H Lymphocytes % (Manual) 3 % (20-45) L Monocytes % (Manual) 6 % (1-10) Eosinophils % (Manual) 0 % (0-3) Basophils % (Manual) 0 % (0-2) Band Neutrophils 0 % (0-8) Platelet Estimate Decreased L Platelet Morphology Normal Red Blood Cell Morphology Normal Sodium Level 140 MMOL/L (136-145) Potassium Level 3.8 MMOL/L (3.5-5.1) Chloride Level 104 MMOL/L (98-107) Carbon Dioxide Level 31 MMOL/L (21-32) Anion Gap 5 mmol/L (5-15) Blood Urea Nitrogen 17 mg/dL (7-18) Creatinine 0.6 MG/DL (0.55-1.30) Estimat Glomerular Filtration Rate mL/min (>60) Glucose Level 125 MG/DL (74-106) H Calcium Level 8.9 MG/DL (8.5-10.1) Total Bilirubin 0.3 MG/DL (0.2-1.0) Aspartate Amino Transf (AST/SGOT) 8 U/L (15-37) L Alanine Aminotransferase (ALT/SGPT) 15 U/L (12-78) Alkaline Phosphatase 82 U/L (46-116) Total Protein 5.9 G/DL (6.4-8.2) L Albumin 2.3 G/DL (3.4-5.0) L Globulin 3.6 g/dL Albumin/Globulin Ratio 0.6 (1.0-2.7) L Arterial Blood pH 7.450 (7.350-7.450) Arterial Blood Partial Pressure CO2 48.4 mmHg (35.0-45.0) H Arterial Blood Partial Pressure O2 86.4 mmHg (75.0-100.0) Arterial Blood HCO3 33.3 mmol/L (22.0-26.0) H Arterial Blood Oxygen Saturation 97.0 % (95-100) Arterial Blood Base Excess 7.9 (-2-2) H Tarun Test Positive Current Medications Medications (Trade) Dose Ordered Sig/Isabella Route PRN Reason Start Time Stop Time Status Last Admin Dose Admin Acetaminophen (Tylenol) 650 mg Q6H PRN ORAL Mild Pain/Temp > 100.5 02/12/18 16:30 03/05/18 16:29 02/16/18 21:53 Bisacodyl (Dulcolax) 10 mg DAILYPRN PRN RECTAL Constipation 02/12/18 16:00 03/14/18 15:59 Clonidine HCl (Catapres TTS-1) 1 patch QWEEK TDERMAL 02/14/18 12:30 03/16/18 12:29 02/14/18 12:48 Diltiazem HCl (Cardizem) 60 mg EVERY 8 HOURS ORAL 02/12/18 22:00 03/06/18 08:59 02/18/18 13:45 Diphenhydramine HCl (Benadryl) 25 mg Q6H PRN ORAL Itching 02/12/18 17:00 03/05/18 16:59 02/17/18 22:10 Fluoxetine HCl (PROzac) 20 mg DAILY ORAL 02/13/18 09:00 03/06/18 08:59 02/18/18 08:35 Hydralazine HCl (Apresoline) 10 mg Q4H PRN IV For BP systolic over 160 02/12/18 19:30 03/14/18 19:29 02/18/18 13:46 Ipratropium [place] (Atrovent) 500 mcg Q6HRT N 02/15/18 12:00 02/20/18 11:59 02/18/18 06:51 Levalbuterol HCl (Xopenex) 0.625 mg Q6HRT N 02/15/18 13:00 02/20/18 12:59 02/18/18 06:51 Lorazepam (Ativan 2mg/ml 1ml) 1 mg Q1H PRN IV For Anxiety 02/12/18 19:30 02/19/18 19:29 02/18/18 02:26 Methylprednisolone Sodium Succinate (Solu-MEDROL) 30 mg DAILY IVP 02/19/18 09:00 03/21/18 08:59 Pantoprazole (Protonix) 40 mg DAILY IVP 02/18/18 09:00 03/20/18 08:59 02/18/18 08:36 Piperacillin Sod/ Tazobactam Sod 3.375 gm/Dextrose 110 ml @ 27.5 mls/hr EVERY 8 HOURS IVPB 02/13/18 14:00 02/23/18 13:59 02/18/18 13:49 Tiotropium [place] (Spiriva Inhaler) 1 puff DAILY INH 02/13/18 09:00 03/06/18 08:59 02/17/18 09:00 Amado Estrella MD Feb 18, 2018 17:42
[2018-02-19] VITALS (13 sets, daily range): BP systolic 144–166; BP diastolic 69–93
[2018-02-19] MEDS: Ipratropium 0.02% Inh Soln 2.5ml UD HHN SCH ×4 (00:50→19:20)
[2018-02-19] MEDS: Levalbuterol Inh UD 1.25mg/0.5ml HHN SCH ×4 (00:50→19:20)
--- NOTE | 2018-02-19 02:15 | Progress Note ---
DATE: 02/18/2018 CARDIOLOGY PROGRESS NOTE SUBJECTIVE: The patient is on ventilator support. Weaning efforts have been unsuccessful. Urine has cleared with less blood noted. OBJECTIVE: VITAL SIGNS: Blood pressure 126/68, pulse 75, respiratory rate 12, afebrile. LUNGS: Bilateral breath sounds. No wheezing. Few rhonchi. HEART: Regular rhythm and rate. Normal S1, S2 with no murmur. ABDOMEN: Soft. EXTREMITIES: Trace edema. Capillary refill is adequate. LABORATORY DATA: White count 11, hemoglobin 14.8. Potassium 3.8, bicarbonate 31, BUN 17, creatinine 0.6. Albumin 2.3. ABG, pH 7.5, pCO2 48, pO2 86. Chest x-ray reveals mild interstitial edema. IMPRESSION: 1. Respiratory failure, failure to wean. 2. Paroxysmal atrial fibrillation. 3. Hypertensive heart disease. 4. Acute diastolic congestive heart failure. 5. Acute on chronic respiratory acidosis. PLAN: 1. Antimicrobials. 2. Wean steroids. 3. Wean off of ventilator support with weaning. 4. Check natriuretic peptide assay. 5. Cautious diuresis with intravenous furosemide. 6. Monitor and replace electrolytes accordingly. 7. Discontinue topical clonidine. Ashvin Wu M.D. DR: Katelin JOB#: [id number] CC:
[2018-02-19 05:25] LABS: HEMATOCRIT 47.8 % (37.0-47.0); HEMOGLOBIN 14.8 G/DL (12.0-16.0); MEAN CORPUSCULAR VOLUME 90 FL (80-99); PLATELET COUNT 137 K/UL (150-450); RED BLOOD COUNT 5.32 M/UL (4.20-5.40); RED CELL DISTRIBUTION WIDTH 14.1 % (11.6-14.8)
[2018-02-19 05:49] LABS: ALANINE AMINOTRANSFERASE 17 U/L (12-78); ALBUMIN 2.5 G/DL (3.4-5.0); ALBUMIN/GLOBULIN RATIO 0.7 (1.0-2.7); ALKALINE PHOSPHATASE 76 U/L (46-116); ANION GAP 5 mmol/L (5-15); ASPARTATE AMINO TRANSFERASE 5 U/L (15-37); BILIRUBIN,TOTAL 0.4 MG/DL (0.2-1.0); BLOOD UREA NITROGEN 19 mg/dL (7-18); CALCIUM 9.2 MG/DL (8.5-10.1); CARBON DIOXIDE 34 MMOL/L (21-32); CHLORIDE 103 MMOL/L (98-107); CREATININE 0.5 MG/DL (0.55-1.30); POTASSIUM 3.8 MMOL/L (3.5-5.1); SODIUM 142 MMOL/L (136-145)
[2018-02-19 05:54] LABS: PHOSPHORUS 2.3 MG/DL (2.5-4.9)
[2018-02-19] MEDS: Piperacillin/Tazobactam 3.375 GM in D5W 110 ML IVPB SCH ×3 (06:11→21:29)
[2018-02-19] MEDS: dilTIAZem HCl 60mg tab ORAL SCH ×3 (06:12→21:33)
[2018-02-19] MEDS ORDERED: Solu-MEDROL 125mg Inj IVP SCH (09:00)
[2018-02-19] MEDS: Pantoprazole Inj IVP SCH (09:27)
[2018-02-19] MEDS ORDERED: LORazepam Inj 2mg/ml 1ml IV PRN (10:30)
--- NOTE | 2018-02-19 11:26 | Infectious Diseases Prog Note ---
Assessment/Plan Assessment/Plan antibiotics : zosyn A 1. pneumonia s/p rx 2. head lice s/p x 3. COPD P 1. d/c zosyn 2. observe off antibiotics Subjective Constitutional: Denies: fever Respiratory: Reports: shortness of breath; Denies: dry cough Gastrointestinal/Abdominal: Reports: diarrhea; Denies: nausea, vomiting Musculoskeletal: Denies: pain Allergies: Coded Allergies: No Known Allergies (Unverified , 12/10/15) Objective Vital Signs Last 24 Hour Vital Signs Date Time Temp Pulse Resp B/P (MAP) Pulse Ox O2 Delivery O2 Flow Rate FiO2 02/19/18 10:20 02/19/18 09:00 80 15 144/78 (100) 100 02/19/18 08:00 77 21 155/80 (105) 99 02/19/18 08:00 85 02/19/18 08:00 Nasal Cannula 2.0 Nasal Cannula 2.0 02/19/18 07:48 76 16 100 Nasal Cannula 2.0 28 02/19/18 07:46 Nasal Cannula 3.0 32 02/19/18 07:39 87 16 98 Nasal Cannula 2.0 28 02/19/18 07:38 98 Nasal Cannula 3.0 32 02/19/18 07:00 98.4 78 22 156/88 (110) 99 98.4 02/19/18 06:12 80 164/83 02/19/18 06:00 79 22 164/83 (110) 99 02/19/18 05:00 79 22 161/91 (114) 99 02/19/18 04:00 Nasal Cannula 2.0 Nasal Cannula 2.0 02/19/18 04:00 78 22 166/84 (111) 99 02/19/18 04:00 80 02/19/18 03:00 80 22 166/82 (110) 99 02/19/18 02:00 82 22 146/90 (108) 99 02/19/18 01:00 98.2 81 22 148/69 (95) 99 98.2 02/19/18 00:58 73 17 100 Nasal Cannula 2.0 28 02/19/18 00:57 28 02/19/18 00:50 76 17 99 Nasal Cannula 2.0 28 02/19/18 00:00 85 02/19/18 00:00 Nasal Cannula 2.0 Nasal Cannula 2.0 02/19/18 00:00 76 22 150/79 (102) 99 02/18/18 23:00 91 22 146/93 (110) 99 02/18/18 22:00 88 22 130/65 (86) 99 02/18/18 21:55 91 140/80 02/18/18 21:00 98.0 93 22 140/80 (100) 99 98.0 02/18/18 20:00 83 02/18/18 20:00 90 22 124/71 (88) 99 02/18/18 20:00 Nasal Cannula 2.0 Nasal Cannula 2.0 02/18/18 19:10 Nasal Cannula 3.0 32 02/18/18 19:09 98 Nasal Cannula 3.0 32 02/18/18 19:02 79 14 99 Nasal Cannula 3.0 32 02/18/18 19:02 32 02/18/18 19:00 89 22 138/78 (98) 98 02/18/18 18:55 80 14 98 Nasal Cannula 3.0 32 02/18/18 18:00 75 14 131/77 (95) 98 02/18/18 17:00 82 16 128/65 (86) 98 02/18/18 16:11 85 18 Nasal Cannula 3.0 32 02/18/18 16:00 76 02/18/18 16:00 Nasal Cannula 3.0 32 02/18/18 16:00 98.0 78 12 135/85 (102) 97 98.0 02/18/18 16:00 Nasal Cannula 2.0 02/18/18 15:22 76 20 30 02/18/18 15:00 72 16 134/67 (89) 97 02/18/18 14:43 98 02/18/18 14:00 79 16 166/92 (116) 97 02/18/18 13:46 164/85 02/18/18 13:45 77 164/85 02/18/18 13:00 Mechanical Ventilator 30 02/18/18 13:00 69 16 164/89 (114) 100 02/18/18 13:00 Mechanical Ventilator 30 02/18/18 12:30 81 22 30 02/18/18 12:00 Mechanical Ventilator 02/18/18 12:00 98.4 70 16 154/88 (110) 96 98.4 02/18/18 12:00 74 02/18/18 12:00 30 Height (Feet): 5 Height (Inches): 6.00 Weight (Pounds): 212 Respiratory/Chest: lungs clear Cardiovascular: normal rate, regular rhythm, no gallop/murmur Abdomen: soft, non tender Extremities: no edema Microbiology Date/Time Source Procedure Growth Status 02/17/18 18:17 Indwelling Cath Urine Culture - Preliminary NO GROWTH Resulted Laboratory Tests Test 02/18/18 14:11 02/19/18 04:54 Arterial Blood pH 7.450 (7.350-7.450) Arterial Blood Partial Pressure CO2 48.4 mmHg (35.0-45.0) H Arterial Blood Partial Pressure O2 86.4 mmHg (75.0-100.0) Arterial Blood HCO3 33.3 mmol/L (22.0-26.0) H Arterial Blood Oxygen Saturation 97.0 % (95-100) Arterial Blood Base Excess 7.9 (-2-2) H Tarun Test Positive White Blood Count 10.0 K/UL (4.8-10.8) Red Blood Count 5.32 M/UL (4.20-5.40) Hemoglobin 14.8 G/DL (12.0-16.0) Hematocrit 47.8 % (37.0-47.0) H Mean Corpuscular Volume 90 FL (80-99) Mean Corpuscular Hemoglobin 27.8 PG (27.0-31.0) Mean Corpuscular Hemoglobin Concent 30.9 G/DL (32.0-36.0) L Red Cell Distribution Width 14.1 % (11.6-14.8) Platelet Count 137 K/UL (150-450) L Mean Platelet Volume 7.3 FL (6.5-10.1) Neutrophils (%) (Auto) % (45.0-75.0) Lymphocytes (%) (Auto) % (20.0-45.0) Monocytes (%) (Auto) % (1.0-10.0) Eosinophils (%) (Auto) % (0.0-3.0) Basophils (%) (Auto) % (0.0-2.0) Differential Total Cells Counted 100 Neutrophils % (Manual) 88 % (45-75) H Lymphocytes % (Manual) 5 % (20-45) L Monocytes % (Manual) 7 % (1-10) Eosinophils % (Manual) 0 % (0-3) Basophils % (Manual) 0 % (0-2) Band Neutrophils 0 % (0-8) Platelet Estimate Decreased L Platelet Morphology Normal Red Blood Cell Morphology Normal Sodium Level 142 MMOL/L (136-145) Potassium Level 3.8 MMOL/L (3.5-5.1) Chloride Level 103 MMOL/L (98-107) Carbon Dioxide Level 34 MMOL/L (21-32) H Anion Gap 5 mmol/L (5-15) Blood Urea Nitrogen 19 mg/dL (7-18) H Creatinine 0.5 MG/DL (0.55-1.30) L Estimat Glomerular Filtration Rate mL/min (>60) Glucose Level 121 MG/DL (74-106) H Calcium Level 9.2 MG/DL (8.5-10.1) Phosphorus Level 2.3 MG/DL (2.5-4.9) L Magnesium Level 1.9 MG/DL (1.8-2.4) Total Bilirubin 0.4 MG/DL (0.2-1.0) Aspartate Amino Transf (AST/SGOT) 5 U/L (15-37) L Alanine Aminotransferase (ALT/SGPT) 17 U/L (12-78) Alkaline Phosphatase 76 U/L (46-116) Pro-B-Type Natriuretic Peptide 449 pg/mL (0-125) H Total Protein 6.1 G/DL (6.4-8.2) L Albumin 2.5 G/DL (3.4-5.0) L Globulin 3.6 g/dL Albumin/Globulin Ratio 0.7 (1.0-2.7) L Current Medications Medications (Trade) Dose Ordered Sig/Isabella Route PRN Reason Start Time Stop Time Status Last Admin Dose Admin Acetaminophen (Tylenol) 650 mg Q6H PRN ORAL Mild Pain/Temp > 100.5 02/19/18 10:30 03/05/18 16:29 Bisacodyl (Dulcolax) 10 mg DAILYPRN PRN RECTAL Constipation 02/19/18 10:30 03/14/18 10:29 Clonidine HCl (Catapres Tab) 0.1 mg Q4H PRN ORAL SBP above 150 02/19/18 10:30 03/21/18 10:29 Diltiazem HCl (Cardizem) 60 mg EVERY 8 HOURS ORAL 02/19/18 14:00 03/06/18 08:59 Diphenhydramine HCl (Benadryl) 25 mg Q6H PRN ORAL Itching 02/19/18 11:00 03/05/18 16:59 Fluoxetine HCl (PROzac) 20 mg DAILY ORAL 02/20/18 09:00 03/06/18 08:59 Ipratropium [place] (Atrovent) 500 mcg Q6HRT N 02/19/18 13:00 02/20/18 11:59 Levalbuterol HCl (Xopenex) 0.625 mg Q6HRT N 02/19/18 13:00 02/20/18 12:59 Lorazepam (Ativan 2mg/ml 1ml) 1 mg Q1H PRN IV For Anxiety 02/19/18 10:30 02/19/18 19:29 Methylprednisolone Sodium Succinate (Solu-MEDROL) 30 mg DAILY IVP 02/20/18 09:00 03/21/18 08:59 Pantoprazole (Protonix) 40 mg DAILY IVP 02/20/18 09:00 03/20/18 08:59 Piperacillin Sod/ Tazobactam Sod 3.375 gm/Dextrose 110 ml @ 27.5 mls/hr EVERY 8 HOURS IVPB 02/19/18 14:00 02/23/18 13:59 Tiotropium [place] (Spiriva Inhaler) 1 puff DAILY INH 02/20/18 09:00 03/06/18 08:59 Radha Macias MD Feb 19, 2018 11:26
--- NOTE | 2018-02-19 12:21 | General Progress Note ---
Assessment/Plan Problem List: (1) COPD exacerbation ICD Codes: J44.1 - Chronic obstructive pulmonary disease with (acute) exacerbation SNOMED: 274615044 (2) HTN (hypertension) ICD Codes: I10 - Essential (primary) hypertension SNOMED: 16505808 (3) Hypoxia ICD Codes: R09.02 - Hypoxemia SNOMED: 728737055 (4) Elevated troponin ICD Codes: R74.8 - Abnormal levels of other serum enzymes SNOMED: 416184337, 449428772, 881266987 (5) Renal insufficiency ICD Codes: N28.9 - Disorder of kidney and ureter, unspecified SNOMED: 849186522, 698170609 (6) Respiratory failure ICD Codes: J96.90 - Respiratory failure, unspecified, unspecified whether with hypoxia or hypercapnia SNOMED: 375743991 Qualifiers: Qualified Codes: J96.02 - Acute respiratory failure with hypercapnia (7) Right lower lobe pneumonia ICD Codes: J18.1 - Lobar pneumonia, unspecified organism SNOMED: 302006120 Qualifiers: Qualified Codes: J18.1 - Lobar pneumonia, unspecified organism Status: stable, progressing Assessment/Plan resp rx wean per pulm iv abx per id follow pending cxr iv steroids hold heparin/asa due to hematuria eval follow up urince culture keep dry prn anxiolytics ngt feeds ID appreciated guarded Subjective Time patient seen: 06:00 ROS Limited/Unobtainable: No Constitutional: Reports: malaise, weakness HEENT: Reports: no symptoms Cardiovascular: Reports: no symptoms Respiratory: Reports: no symptoms Gastrointestinal/Abdominal: Reports: no symptoms Genitourinary: Reports: no symptoms Neurologic/Psychiatric: Reports: anxiety Endocrine: Reports: no symptoms Hematologic/Lymphatic: Reports: no symptoms Allergies: Coded Allergies: No Known Allergies (Unverified , 12/10/15) All Systems: reviewed and negative except above Subjective extubated. no complaints. states she feels "better." hematuria worse- asa and heparin discontinued several days ago Objective Last 24 Hour Vital Signs Date Time Temp Pulse Resp B/P (MAP) Pulse Ox O2 Delivery O2 Flow Rate FiO2 02/19/18 10:20 02/19/18 09:00 80 15 144/78 (100) 100 02/19/18 08:00 77 21 155/80 (105) 99 02/19/18 08:00 85 02/19/18 08:00 Nasal Cannula 2.0 Nasal Cannula 2.0 02/19/18 07:48 76 16 100 Nasal Cannula 2.0 28 02/19/18 07:46 Nasal Cannula 3.0 32 02/19/18 07:39 87 16 98 Nasal Cannula 2.0 28 02/19/18 07:38 98 Nasal Cannula 3.0 32 02/19/18 07:00 98.4 78 22 156/88 (110) 99 98.4 02/19/18 06:12 80 164/83 02/19/18 06:00 79 22 164/83 (110) 99 02/19/18 05:00 79 22 161/91 (114) 99 02/19/18 04:00 Nasal Cannula 2.0 Nasal Cannula 2.0 02/19/18 04:00 78 22 166/84 (111) 99 02/19/18 04:00 80 02/19/18 03:00 80 22 166/82 (110) 99 02/19/18 02:00 82 22 146/90 (108) 99 02/19/18 01:00 98.2 81 22 148/69 (95) 99 98.2 02/19/18 00:58 73 17 100 Nasal Cannula 2.0 28 02/19/18 00:57 28 02/19/18 00:50 76 17 99 Nasal Cannula 2.0 28 02/19/18 00:00 85 02/19/18 00:00 Nasal Cannula 2.0 Nasal Cannula 2.0 02/19/18 00:00 76 22 150/79 (102) 99 02/18/18 23:00 91 22 146/93 (110) 99 02/18/18 22:00 88 22 130/65 (86) 99 02/18/18 21:55 91 140/80 02/18/18 21:00 98.0 93 22 140/80 (100) 99 98.0 02/18/18 20:00 83 02/18/18 20:00 90 22 124/71 (88) 99 02/18/18 20:00 Nasal Cannula 2.0 Nasal Cannula 2.0 02/18/18 19:10 Nasal Cannula 3.0 32 02/18/18 19:09 98 Nasal Cannula 3.0 32 02/18/18 19:02 79 14 99 Nasal Cannula 3.0 32 02/18/18 19:02 32 02/18/18 19:00 89 22 138/78 (98) 98 02/18/18 18:55 80 14 98 Nasal Cannula 3.0 32 02/18/18 18:00 75 14 131/77 (95) 98 02/18/18 17:00 82 16 128/65 (86) 98 02/18/18 16:11 85 18 Nasal Cannula 3.0 32 02/18/18 16:00 76 02/18/18 16:00 Nasal Cannula 3.0 32 02/18/18 16:00 98.0 78 12 135/85 (102) 97 98.0 02/18/18 16:00 Nasal Cannula 2.0 02/18/18 15:22 76 20 30 02/18/18 15:00 72 16 134/67 (89) 97 02/18/18 14:43 98 02/18/18 14:00 79 16 166/92 (116) 97 02/18/18 13:46 164/85 02/18/18 13:45 77 164/85 02/18/18 13:00 Mechanical Ventilator 30 02/18/18 13:00 69 16 164/89 (114) 100 02/18/18 13:00 Mechanical Ventilator 30 02/18/18 12:30 81 22 30 Intake and Output 02/18/18 02/19/18 19:00 07:00 Intake Total 880.0 ml 357.5 ml Output Total 1460 ml 600 ml Balance -580.0 ml -242.5 ml IV Total 220.0 ml 137.5 ml Tube Feeding 660 ml 220 ml Output Urine Total 1460 ml 600 ml # Bowel Movements 2 Laboratory Tests 02/18/18 14:11: Arterial Blood pH 7.450, Arterial Blood Partial Pressure CO2 48.4H, Arterial Blood Partial Pressure O2 86.4, Arterial Blood HCO3 33.3H, Arterial Blood Oxygen Saturation 97.0, Arterial Blood Base Excess 7.9H, Tarun Test Positive 02/19/18 04:54: White Blood Count 10.0, Red Blood Count 5.32, Hemoglobin 14.8, Hematocrit 47.8H , Mean Corpuscular Volume 90, Mean Corpuscular Hemoglobin 27.8, Mean Corpuscular Hemoglobin Concent 30.9L, Red Cell Distribution Width 14.1, Platelet Count 137L, Mean Platelet Volume 7.3, Neutrophils (%) (Auto) , Lymphocytes (%) (Auto) , Monocytes (%) (Auto) , Eosinophils (%) (Auto) , Basophils (%) (Auto) , Differential Total Cells Counted 100, Neutrophils % ( Manual) 88H, Lymphocytes % (Manual) 5L, Monocytes % (Manual) 7, Eosinophils % ( Manual) 0, Basophils % (Manual) 0, Band Neutrophils 0, Platelet Estimate DecreasedL, Platelet Morphology Normal, Red Blood Cell Morphology Normal, Sodium Level 142, Potassium Level 3.8, Chloride Level 103, Carbon Dioxide Level 34H, Anion Gap 5, Blood Urea Nitrogen 19H, Creatinine 0.5L, Estimat Glomerular Filtration Rate , Glucose Level 121H, Calcium Level 9.2, Phosphorus Level 2.3L, Magnesium Level 1.9, Total Bilirubin 0.4, Aspartate Amino Transf (AST/SGOT) 5L, Alanine Aminotransferase (ALT/SGPT) 17, Alkaline Phosphatase 76, Pro-B-Type Natriuretic Peptide 449H, Total Protein 6.1L, Albumin 2.5L, Globulin 3.6, Albumin/Globulin Ratio 0.7L Height (Feet): 5 Height (Inches): 6.00 Weight (Pounds): 212 Objective General Appearance: WD/WN, resting. on nasal cannula, opens eyes. alert. follows commands Neck: supple Cardiovascular: regular rhythm Respiratory/Chest: lungs mostly clear, few rhonchi Abdomen: normal bowel sounds, non tender, soft, no organomegaly Edema: no edema noted Arm (L), no edema noted Arm (R), no edema noted Leg (L), no edema noted Leg (R), no edema noted Pedal (L), no edema noted Pedal (R), no edema noted Generalized Manan Byrd MD Feb 19, 2018 12:21
[2018-02-19] MEDS ORDERED: 1/2 NS 1000ml IV ONE (15:09)
[2018-02-19] MEDS ORDERED: Tubing IV Secondary IV ONE ×2 (18:18→18:22)
[2018-02-19] MEDS ORDERED: NS 275ml ONE ×2 (18:18→18:22)
[2018-02-19] MEDS ORDERED: Sterile Water Irrig 1000ml IRRIG ONE (18:18)
--- NOTE | 2018-02-19 19:38 | Critical Care Progress Note ---
Assessment/Plan Assessment/Plan IMPRESSION: Acute respiratory failure, COPD with acute exacerbation, respiratory acidosis and associated hypoxemia, cardiomegaly, pleural effusion and pulmonary edema, protein-calorie malnutrition. PLAN ok to floor seen earlier respiratory care reviewed IV antibiotics IV steroids taper- to prednisone supportive care as able monitor closely for now and try to wean daily guarded feeds position change and monitor for change skin monitoring DVT prophylaxis hope to avoid trach medications/laboratory data/nursing notes/ICU care reviewed in detail note reviewed and edited care discussed with RN and RT ICU time spent 40 minutes Critical Care - Subjective Interval Events: stable and off vent no distress on oxygen Condition: improving EKG Rhythm: Sinus Rhythm I&O: Intake and Output 02/18/18 02/19/18 19:00 07:00 Intake Total 880.0 ml 357.5 ml Output Total 1460 ml 600 ml Balance -580.0 ml -242.5 ml IV Total 220.0 ml 137.5 ml Tube Feeding 660 ml 220 ml Output Urine Total 1460 ml 600 ml # Bowel Movements 2 Critical Care - Objective CXR: minimal atelectasis ET-Tube: 7.5 ET Position: 24 Last 24 Hour Vital Signs Date Time Temp Pulse Resp B/P (MAP) Pulse Ox O2 Delivery O2 Flow Rate FiO2 02/19/18 19:20 Nasal Cannula 2.0 28 02/19/18 19:20 82 16 98 Nasal Cannula 2.0 28 02/19/18 19:20 98 Nasal Cannula 2.0 28 02/19/18 17:10 81 02/19/18 16:00 97.8 76 16 155/80 (105) 99 97.8 02/19/18 16:00 78 02/19/18 16:00 Nasal Cannula 2.0 Nasal Cannula 2.0 02/19/18 14:53 85 147/93 02/19/18 13:55 85 16 100 Nasal Cannula 2.0 28 02/19/18 13:45 84 16 98 Nasal Cannula 2.0 28 02/19/18 12:00 76 02/19/18 12:00 Nasal Cannula 2.0 Nasal Cannula 2.0 02/19/18 12:00 97.5 76 16 147/93 (111) 100 97.5 02/19/18 10:20 02/19/18 09:00 80 15 144/78 (100) 100 02/19/18 08:00 77 21 155/80 (105) 99 10/23/18 08:00 85 02/19/18 08:00 Nasal Cannula 2.0 Nasal Cannula 2.0 02/19/18 07:48 76 16 100 Nasal Cannula 2.0 28 02/19/18 07:46 Nasal Cannula 3.0 32 02/19/18 07:39 87 16 98 Nasal Cannula 2.0 28 02/19/18 07:38 98 Nasal Cannula 3.0 32 02/19/18 07:00 98.4 78 22 156/88 (110) 99 98.4 02/19/18 06:12 80 164/83 02/19/18 06:00 79 22 164/83 (110) 99 02/19/18 05:00 79 22 161/91 (114) 99 02/19/18 04:00 Nasal Cannula 2.0 Nasal Cannula 2.0 02/19/18 04:00 78 22 166/84 (111) 99 02/19/18 04:00 80 02/19/18 03:00 80 22 166/82 (110) 99 02/19/18 02:00 82 22 146/90 (108) 99 02/19/18 01:00 98.2 81 22 148/69 (95) 99 98.2 02/19/18 00:58 73 17 100 Nasal Cannula 2.0 28 02/19/18 00:57 28 02/19/18 00:50 76 17 99 Nasal Cannula 2.0 28 02/19/18 00:00 85 02/19/18 00:00 Nasal Cannula 2.0 Nasal Cannula 2.0 02/19/18 00:00 76 22 150/79 (102) 99 02/18/18 23:00 91 22 146/93 (110) 99 02/18/18 22:00 88 22 130/65 (86) 99 02/18/18 21:55 91 140/80 02/18/18 21:00 98.0 93 22 140/80 (100) 99 98.0 02/18/18 20:00 83 02/18/18 20:00 90 22 124/71 (88) 99 02/18/18 20:00 Nasal Cannula 2.0 Nasal Cannula 2.0 Labs: Labs Test 02/17/18 18:17 02/18/18 04:00 02/18/18 14:11 02/19/18 04:54 Urine Color Red Urine Appearance Turbid Urine pH 7 (4.5-8.0) Urine Specific [place] 1.010 (1.005-1.035) Urine Protein 3+ (NEGATIVE) Urine Glucose (UA) Negative (NEGATIVE) Urine Ketones Negative (NEGATIVE) Urine Blood 5+ (NEGATIVE) Urine Nitrite Negative (NEGATIVE) Urine Bilirubin Negative (NEGATIVE) Urine Urobilinogen Normal MG/DL (0.0-1.0) Urine Leukocyte Esterase 3+ (NEGATIVE) Urine RBC Tntc /HPF (0 - 2) Urine WBC 15-20 /HPF (0 - 2) Urine Squamous Epithelial Cells Few /LPF (NONE/OCC) Urine Bacteria Few /HPF (NONE) White Blood Count 11.1 K/UL (4.8-10.8) 10.0 K/UL (4.8-10.8) Red Blood Count 5.20 M/UL (4.20-5.40) 5.32 M/UL (4.20-5.40) Hemoglobin 14.8 G/DL (12.0-16.0) 14.8 G/DL (12.0-16.0) Hematocrit 46.1 % (37.0-47.0) 47.8 % (37.0-47.0) Mean Corpuscular Volume 89 FL (80-99) 90 FL (80-99) Mean Corpuscular Hemoglobin 28.4 PG (27.0-31.0) 27.8 PG (27.0-31.0) Mean Corpuscular Hemoglobin Concent 32.0 G/DL (32.0-36.0) 30.9 G/DL (32.0-36.0) Red Cell Distribution Width 14.3 % (11.6-14.8) 14.1 % (11.6-14.8) Platelet Count 141 K/UL (150-450) 137 K/UL (150-450) Mean Platelet Volume 6.8 FL (6.5-10.1) 7.3 FL (6.5-10.1) Neutrophils (%) (Auto) % (45.0-75.0) % (45.0-75.0) Lymphocytes (%) (Auto) % (20.0-45.0) % (20.0-45.0) Monocytes (%) (Auto) % (1.0-10.0) % (1.0-10.0) Eosinophils (%) (Auto) % (0.0-3.0) % (0.0-3.0) Basophils (%) (Auto) % (0.0-2.0) % (0.0-2.0) Differential Total Cells Counted 100 100 Neutrophils % (Manual) 91 % (45-75) 88 % (45-75) Lymphocytes % (Manual) 3 % (20-45) 5 % (20-45) Monocytes % (Manual) 6 % (1-10) 7 % (1-10) Eosinophils % (Manual) 0 % (0-3) 0 % (0-3) Basophils % (Manual) 0 % (0-2) 0 % (0-2) Band Neutrophils 0 % (0-8) 0 % (0-8) Platelet Estimate Decreased Decreased Platelet Morphology Normal Normal Red Blood Cell Morphology Normal Normal Sodium Level 140 MMOL/L (136-145) 142 MMOL/L (136-145) Potassium Level 3.8 MMOL/L (3.5-5.1) 3.8 MMOL/L (3.5-5.1) Chloride Level 104 MMOL/L (98-107) 103 MMOL/L (98-107) Carbon Dioxide Level 31 MMOL/L (21-32) 34 MMOL/L (21-32) Anion Gap 5 mmol/L (5-15) 5 mmol/L (5-15) Blood Urea Nitrogen 17 mg/dL (7-18) 19 mg/dL (7-18) Creatinine 0.6 MG/DL (0.55-1.30) 0.5 MG/DL (0.55-1.30) Estimat Glomerular Filtration Rate mL/min (>60) mL/min (>60) Glucose Level 125 MG/DL (74-106) 121 MG/DL (74-106) Calcium Level 8.9 MG/DL (8.5-10.1) 9.2 MG/DL (8.5-10.1) Total Bilirubin 0.3 MG/DL (0.2-1.0) 0.4 MG/DL (0.2-1.0) Aspartate Amino Transf (AST/SGOT) 8 U/L (15-37) 5 U/L (15-37) Alanine Aminotransferase (ALT/SGPT) 15 U/L (12-78) 17 U/L (12-78) Alkaline Phosphatase 82 U/L (46-116) 76 U/L (46-116) Total Protein 5.9 G/DL (6.4-8.2) 6.1 G/DL (6.4-8.2) Albumin 2.3 G/DL (3.4-5.0) 2.5 G/DL (3.4-5.0) Globulin 3.6 g/dL 3.6 g/dL Albumin/Globulin Ratio 0.6 (1.0-2.7) 0.7 (1.0-2.7) Arterial Blood pH 7.450 (7.350-7.450) Arterial Blood Partial Pressure CO2 48.4 mmHg (35.0-45.0) Arterial Blood Partial Pressure O2 86.4 mmHg (75.0-100.0) Arterial Blood HCO3 33.3 mmol/L (22.0-26.0) Arterial Blood Oxygen Saturation 97.0 % (95-100) Arterial Blood Base Excess 7.9 (-2-2) Tarun Test Positive Phosphorus Level 2.3 MG/DL (2.5-4.9) Magnesium Level 1.9 MG/DL (1.8-2.4) Pro-B-Type Natriuretic Peptide 449 pg/mL (0-125) Objective: GENERAL: sedated/withdrawn; off vent; on NC NECK: Supple. No adenopathy. No jugular venous distention. orally intubated LUNGS: Moderate breath sounds. no rhonchi. No wheezes. stable CARDIAC: S1 and S2. Regular rhythm without murmurs, rubs, or gallops. ABDOMEN: Soft, nontender, nondistended. no HSM; feeding tube in place EXTREMITIES: No cyanosis, clubbing; trace edema. NEUROLOGIC: Grossly nonfocal, sedated reviewed and examined Micro: Microbiology Date/Time Source Procedure Growth Status 02/17/18 18:17 Indwelling Cath Urine Culture - Preliminary NO GROWTH Resulted Accucheck: 140 Mk Billings MD Feb 19, 2018 19:38
[2018-02-19] MEDS: Vitamin A&D Oint 2oz Tube TOPIC SCH (20:28)
--- NOTE | 2018-02-19 23:45 | Consultation ---
DATE OF CONSULTATION: 02/18/2018 UROLOGY CONSULTATION CONSULTING PHYSICIAN: Spenser Marc M.D. REFERRING PHYSICIAN: Manan Byrd M.D. REASON FOR CONSULTATION: For evaluation of gross hematuria. HISTORY OF PRESENT ILLNESS: This is a 72-year-old female. She was admitted to the hospital because of respiratory failure. She was on at some point on BiPAP and required intubation. She had a long hospital course. She has a Cochran catheter indwelling. Gross hematuria has been noted. Urology evaluation was requested. The patient denies flank pain. PAST MEDICAL HISTORY: Significant for history of COPD, history of hypertension, and history of alcohol dependence. She has history of cognitive dysfunction. PAST SURGICAL HISTORY: Unknown. MEDICATIONS: Current medication list was reviewed. In the hospital, she is on Prozac, Solu-Medrol, Protonix, Spiriva, Zosyn, Cardizem, Atrovent, Xopenex, Prinivil, Catapres. ALLERGIES: No known drug allergies. SOCIAL HISTORY: She lives in a jail. FAMILY HISTORY: Noncontributory. REVIEW OF SYSTEMS: As above. PHYSICAL EXAMINATION: GENERAL: Obese female, in no acute distress. VITAL SIGNS: Temperature is 97.8, blood pressure is 155/80, pulse is 94, respirations 16. HEENT: Normocephalic. NECK: Supple. ABDOMEN: Soft. BACK: No CVA tenderness. GENITOURINARY: She has 16-[place] [address] in place. Urine is grossly bloody, small clots. LABORATORY DATA: Her last UA showed 3+ leuks, too numerous to count rbc's, 15-20 wbc's, 3+ protein. Her last urine culture on February 17, is negative thus far. Previous culture from the , was negative at 48 hours. Her white blood cell count is 10.0, hemoglobin 14.8, and platelets are 137,000. BUN is 19, creatinine 0.5. DIAGNOSTIC IMAGING STUDIES: The patient has not had any renal imaging studies. She did have a plain abdominal x-ray which was reviewed. IMPRESSION: 1. Gross hematuria. 2. Urinary retention. 3. Probable neurogenic bladder. 4. Pyuria. 5. Proteinuria. 6. Possible hemorrhagic cystitis. PLAN AND DISCUSSION: Again, the patient does have gross hematuria. I did personally hand-irrigate the Cochran. There were minimal clots. The urine started clearing. I do not believe there is active bleeding. This may be oozing from [place] irritation. Apparently at some point, she was on heparin and aspirin, which have been held. At this time, I would recommend monitoring with hand-irrigation as needed. Renal ultrasound will be obtained and at some point, she will need to have cystoscopy to complete the workup and this can be done electively later. I will follow the patient. Any other recommendations will be forthcoming. Thank you Dr. Byrd for asking me to participate in the care of this patient. Spenser Marc M.D. DR: Nancy JOB#: [id number] CC: Neri Penny M.D. ABRAHAM ISHAAYA, M.D.; FAX#: [phone]
[2018-02-20] MEDS: Levalbuterol Inh UD 1.25mg/0.5ml HHN SCH ×2 (01:00→07:12)
[2018-02-20] MEDS: Ipratropium 0.02% Inh Soln 2.5ml UD HHN SCH ×2 (01:00→07:13)
[2018-02-20] MEDS: dilTIAZem HCl 60mg tab ORAL SCH ×3 (05:52→21:36)
[2018-02-20] MEDS: Piperacillin/Tazobactam 3.375 GM in D5W 110 ML IVPB SCH ×3 (05:52→21:36)
--- NOTE | 2018-02-20 07:52 | General Progress Note ---
Assessment/Plan Problem List: (1) COPD exacerbation ICD Codes: J44.1 - Chronic obstructive pulmonary disease with (acute) exacerbation SNOMED: 601025890 (2) HTN (hypertension) ICD Codes: I10 - Essential (primary) hypertension SNOMED: 41897059 (3) Hypoxia ICD Codes: R09.02 - Hypoxemia SNOMED: 550243434 (4) Elevated troponin ICD Codes: R74.8 - Abnormal levels of other serum enzymes SNOMED: 628644777, 638306574, 779216701 (5) Renal insufficiency ICD Codes: N28.9 - Disorder of kidney and ureter, unspecified SNOMED: 465434958, 227224925 (6) Respiratory failure ICD Codes: J96.90 - Respiratory failure, unspecified, unspecified whether with hypoxia or hypercapnia SNOMED: 888473271 Qualifiers: Qualified Codes: J96.02 - Acute respiratory failure with hypercapnia (7) Right lower lobe pneumonia ICD Codes: J18.1 - Lobar pneumonia, unspecified organism SNOMED: 503936974 Qualifiers: Qualified Codes: J18.1 - Lobar pneumonia, unspecified organism Status: stable, progressing Assessment/Plan resp rx o2 iv abx per id monitor cxr iv steroids holding heparin/asa due to hematuria eval follow up urine culture keep dry prn anxiolytics ngt feeds ID appreciated guarded Subjective ROS Limited/Unobtainable: No Constitutional: Reports: malaise, weakness HEENT: Reports: no symptoms Cardiovascular: Reports: no symptoms Respiratory: Reports: no symptoms Gastrointestinal/Abdominal: Reports: no symptoms Genitourinary: Reports: no symptoms Neurologic/Psychiatric: Reports: no symptoms Endocrine: Reports: no symptoms Hematologic/Lymphatic: Reports: no symptoms Allergies: Coded Allergies: No Known Allergies (Unverified , 12/10/15) All Systems: reviewed and negative except above Subjective getting resp rx. decrease hematuria today. no sob. Objective Last 24 Hour Vital Signs Date Time Temp Pulse Resp B/P (MAP) Pulse Ox O2 Delivery O2 Flow Rate FiO2 02/20/18 07:23 86 18 100 Nasal Cannula 2.0 28 02/20/18 07:13 98 Nasal Cannula 2.0 28 02/20/18 07:13 85 18 98 Nasal Cannula 2.0 28 02/20/18 07:12 Nasal Cannula 2.0 28 02/20/18 05:52 74 145/83 10/24/18 04:00 Nasal Cannula 2.0 02/20/18 03:36 74 02/20/18 01:00 Nasal Cannula 2.0 28 02/20/18 01:00 Nasal Cannula 2.0 28 02/20/18 00:00 86 02/20/18 00:00 Nasal Cannula 2.0 02/19/18 23:29 98.1 83 12 145/83 (103) 100 98.1 02/19/18 21:33 84 135/75 02/19/18 20:00 86 02/19/18 20:00 Nasal Cannula 2.0 02/19/18 19:29 94 16 100 Nasal Cannula 2.0 28 02/19/18 19:20 Nasal Cannula 2.0 28 02/19/18 19:20 82 16 98 Nasal Cannula 2.0 28 02/19/18 19:20 98 Nasal Cannula 2.0 28 02/19/18 17:10 81 02/19/18 16:00 97.8 76 16 155/80 (105) 99 97.8 02/19/18 16:00 78 02/19/18 16:00 Nasal Cannula 2.0 Nasal Cannula 2.0 02/19/18 14:53 85 147/93 02/19/18 13:55 85 16 100 Nasal Cannula 2.0 02/19/18 13:45 84 16 98 Nasal Cannula 2.0 28 02/19/18 12:00 76 02/19/18 12:00 Nasal Cannula 2.0 Nasal Cannula 2.0 02/19/18 12:00 97.5 76 16 147/93 (111) 100 97.5 02/19/18 10:20 02/19/18 09:00 80 15 144/78 (100) 100 02/19/18 08:00 77 21 155/80 (105) 99 02/19/18 08:00 85 02/19/18 08:00 Nasal Cannula 2.0 Nasal Cannula 2.0 Intake and Output 02/19/18 02/20/18 19:00 07:00 Intake Total 82.5 ml 113.52 ml Output Total 690 ml 1400 ml Balance -607.5 ml -1286.48 ml IV Total 82.5 ml 113.52 ml Tube Feeding 0 ml Output Urine Total 690 ml 1400 ml # Bowel Movements 1 Height (Feet): 5 Height (Inches): 6.00 Weight (Pounds): 210 Objective General Appearance: WD/WN, resting. on nasal cannula, opens eyes. alert. follows commands Neck: supple Cardiovascular: regular rhythm Respiratory/Chest: lungs mostly clear, few rhonchi Abdomen: normal bowel sounds, non tender, soft, no organomegaly Edema: no edema noted Arm (L), no edema noted Arm (R), no edema noted Leg (L), no edema noted Leg (R), no edema noted Pedal (L), no edema noted Pedal (R), no edema noted Generalized Manan Byrd MD Feb 20, 2018 07:52
[2018-02-20 08:00] VITALS: BP 108/56
[2018-02-20] MEDS: Pantoprazole Inj IVP SCH (08:47)
[2018-02-20] MEDS: Vitamin A&D Oint 2oz Tube TOPIC SCH ×2 (08:47→21:36)
[2018-02-20] MEDS ORDERED: Solu-MEDROL 125mg Inj IVP SCH (09:00)
--- NOTE | 2018-02-20 09:18 | Urology Progress Note ---
Assessment/Plan Assessment/Plan 1. Gross hematuria. 2. Urinary retention. 3. Probable neurogenic bladder. 4. Pyuria. 5. Proteinuria. 6. Possible hemorrhagic cystitis. monitor clinically arellano hand irrigated and do PRN no active bleeding cont with abx as ordered off anticoagulation f/u on renal u/s monitor h/h cysto later Subjective Allergies: Coded Allergies: No Known Allergies (Unverified , 12/10/15) Subjective all noted, comfortable Objective Last 24 Hour Vital Signs Date Time Temp Pulse Resp B/P (MAP) Pulse Ox O2 Delivery O2 Flow Rate FiO2 02/20/18 08:49 90 02/20/18 08:00 98.1 89 18 108/56 (73) 97 98.1 02/20/18 08:00 Nasal Cannula 2.0 02/20/18 07:23 86 18 100 Nasal Cannula 2.0 28 02/20/18 07:13 98 Nasal Cannula 2.0 28 02/20/18 07:13 85 18 98 Nasal Cannula 2.0 28 02/20/18 07:12 Nasal Cannula 2.0 28 02/20/18 05:52 74 145/83 02/20/18 04:00 Nasal Cannula 2.0 02/20/18 03:36 74 02/20/18 01:00 Nasal Cannula 2.0 28 02/20/18 01:00 Nasal Cannula 2.0 28 02/20/18 00:00 86 02/20/18 00:00 Nasal Cannula 2.0 02/19/18 23:29 98.1 83 12 145/83 (103) 100 98.1 02/19/18 21:33 84 135/75 02/19/18 20:00 86 02/19/18 20:00 Nasal Cannula 2.0 02/19/18 19:29 94 16 100 Nasal Cannula 2.0 28 02/19/18 19:20 Nasal Cannula 2.0 28 02/19/18 19:20 82 16 98 Nasal Cannula 2.0 28 02/19/18 19:20 98 Nasal Cannula 2.0 28 02/19/18 17:10 81 02/19/18 16:00 97.8 76 16 155/80 (105) 99 97.8 02/19/18 16:00 78 02/19/18 16:00 Nasal Cannula 2.0 Nasal Cannula 2.0 02/19/18 14:53 85 147/93 10/23/18 13:55 85 16 100 Nasal Cannula 2.0 28 02/19/18 13:45 84 16 98 Nasal Cannula 2.0 28 02/19/18 12:00 76 02/19/18 12:00 Nasal Cannula 2.0 Nasal Cannula 2.0 02/19/18 12:00 97.5 76 16 147/93 (111) 100 97.5 02/19/18 10:20 Intake and Output 02/19/18 02/20/18 19:00 07:00 Intake Total 82.5 ml 113.52 ml Output Total 690 ml 1400 ml Balance -607.5 ml -1286.48 ml IV Total 82.5 ml 113.52 ml Tube Feeding 0 ml Output Urine Total 690 ml 1400 ml # Bowel Movements 1 Microbiology Date/Time Source Procedure Growth Status 02/03/18 15:30 Blood Blood Culture - Final NO GROWTH AFTER 5 DAYS Complete 02/17/18 18:17 Indwelling Cath Urine Culture - Preliminary NO GROWTH AFTER 24 HOURS Resulted 02/03/18 15:30 Rectal Mucosa - Final NO CARBAPENEM-RESISTANT ENTEROBACTERI... Complete Current Medications Medications (Trade) Dose Ordered Sig/Isabella Route PRN Reason Start Time Stop Time Status Last Admin Dose Admin Acetaminophen (Tylenol) 650 mg Q6H PRN ORAL Mild Pain/Temp > 100.5 02/19/18 10:30 03/05/18 16:29 Bisacodyl (Dulcolax) 10 mg DAILYPRN PRN RECTAL Constipation 02/19/18 10:30 03/14/18 10:29 Clonidine HCl (Catapres Tab) 0.1 mg Q4H PRN ORAL SBP above 150 02/19/18 10:30 03/21/18 10:29 Diltiazem HCl (Cardizem) 60 mg EVERY 8 HOURS ORAL 02/19/18 14:00 03/06/18 08:59 02/20/18 05:52 Diphenhydramine HCl (Benadryl) 25 mg Q6H PRN ORAL Itching 02/19/18 11:00 03/05/18 16:59 Fluoxetine HCl (PROzac) 20 mg DAILY ORAL 02/20/18 09:00 03/06/18 08:59 02/20/18 08:47 Ipratropium [place] (Atrovent) 500 mcg Q6HRT HHN 10/23/18 13:00 02/20/18 11:59 02/20/18 07:13 Levalbuterol HCl (Xopenex) 0.625 mg Q6HRT HHN 02/19/18 13:00 02/20/18 12:59 02/20/18 07:12 Methylprednisolone Sodium Succinate (Solu-MEDROL) 30 mg DAILY IVP 02/20/18 09:00 03/21/18 08:59 02/20/18 08:47 Pantoprazole (Protonix) 40 mg DAILY IVP 02/20/18 09:00 03/20/18 08:59 02/20/18 08:47 Piperacillin Sod/ Tazobactam Sod 3.375 gm/Dextrose 110 ml @ 27.5 mls/hr EVERY 8 HOURS IVPB 02/19/18 14:00 02/23/18 13:59 02/20/18 05:52 Tiotropium [place] (Spiriva Inhaler) 1 puff DAILY INH 02/20/18 09:00 03/06/18 08:59 Vitamin A/Vitamin D (A & D Oint) 1 applic EVERY 12 HOURS TOPIC 02/19/18 21:00 03/21/18 20:59 02/20/18 08:47 Height (Feet): 5 Height (Inches): 6.00 Weight (Pounds): 210 Objective exam stable, urine blood-tinged renal u/s result pending LOIS ESPARZA Feb 20, 2018 09:18
--- NOTE | 2018-02-20 10:25 | Diagnostic Imaging Report ---
Indication: Flank pain and hematuria Technique: Grayscale and duplex images of the kidneys, retroperitoneum, and bladder were obtained. Comparison: none Findings: Right kidney measures 11.2 cm in length. Left kidney measures 11.6 cm in length. Both kidneys demonstrate normal echogenicity. No hydronephrosis. No focal abnormality. Normal inferior vena cava. Bladder is empty, contains a Cochran catheter. Impression: Negative for hydronephrosis Empty bladder with Cochran catheter.
--- NOTE | 2018-02-20 11:00 | Infectious Diseases Prog Note ---
Assessment/Plan Assessment/Plan antibiotics : zosyn A 1. pneumonia 2. head lice improving 3. COPD 4. ? zoster 5. r/o UTI 6/ r/o cdiff colitis P 1. continue zosyn 2. start acyclovir 3. UA and urine culture 4. stool for c.diff 5. will follow up cultures Subjective Constitutional: Denies: fever, chills Respiratory: Denies: shortness of breath, dry cough Gastrointestinal/Abdominal: Reports: diarrhea; Denies: nausea, vomiting Genitourinary: Reports: hematuria Musculoskeletal: Denies: pain Allergies: Coded Allergies: No Known Allergies (Unverified , 12/10/15) Objective Vital Signs Last 24 Hour Vital Signs Date Time Temp Pulse Resp B/P (MAP) Pulse Ox O2 Delivery O2 Flow Rate FiO2 02/20/18 08:49 90 02/20/18 08:00 98.1 89 18 108/56 (73) 97 98.1 02/20/18 08:00 Nasal Cannula 2.0 02/20/18 07:23 86 18 100 Nasal Cannula 2.0 28 02/20/18 07:13 98 Nasal Cannula 2.0 28 02/20/18 07:13 85 18 98 Nasal Cannula 2.0 28 02/20/18 07:12 Nasal Cannula 2.0 02/20/18 05:52 74 145/83 02/20/18 04:00 Nasal Cannula 2.0 02/20/18 03:36 74 02/20/18 01:00 Nasal Cannula 2.0 28 02/20/18 01:00 Nasal Cannula 2.0 28 02/20/18 00:00 86 02/20/18 00:00 Nasal Cannula 2.0 02/19/18 23:29 98.1 83 12 145/83 (103) 100 98.1 02/19/18 21:33 84 135/75 02/19/18 20:00 86 02/19/18 20:00 Nasal Cannula 2.0 02/19/18 19:29 94 16 100 Nasal Cannula 2.0 28 02/19/18 19:20 Nasal Cannula 2.0 28 02/19/18 19:20 82 16 98 Nasal Cannula 2.0 28 02/19/18 19:20 98 Nasal Cannula 2.0 28 02/19/18 17:10 81 02/19/18 16:00 97.8 76 16 155/80 (105) 99 97.8 02/19/18 16:00 78 02/19/18 16:00 Nasal Cannula 2.0 Nasal Cannula 2.0 02/19/18 14:53 85 147/93 02/19/18 13:55 85 16 100 Nasal Cannula 2.0 28 02/19/18 13:45 84 16 98 Nasal Cannula 2.0 28 02/19/18 12:00 76 02/19/18 12:00 Nasal Cannula 2.0 Nasal Cannula 2.0 02/19/18 12:00 97.5 76 16 147/93 (111) 100 97.5 Height (Feet): 5 Height (Inches): 6.00 Weight (Pounds): 210 Respiratory/Chest: lungs clear Cardiovascular: normal rate, regular rhythm, no gallop/murmur Abdomen: soft, non tender Genitourinary: other - blisters on inner thigh Extremities: no edema Microbiology Date/Time Source Procedure Growth Status 02/17/18 18:17 Indwelling Cath Urine Culture - Preliminary NO GROWTH AFTER 24 HOURS Resulted Current Medications Medications (Trade) Dose Ordered Sig/Isabella Route PRN Reason Start Time Stop Time Status Last Admin Dose Admin Acetaminophen (Tylenol) 650 mg Q6H PRN ORAL Mild Pain/Temp > 100.5 02/19/18 10:30 03/05/18 16:29 Bisacodyl (Dulcolax) 10 mg DAILYPRN PRN RECTAL Constipation 02/19/18 10:30 03/14/18 10:29 Clonidine HCl (Catapres Tab) 0.1 mg Q4H PRN ORAL SBP above 150 02/19/18 10:30 03/21/18 10:29 Diltiazem HCl (Cardizem) 60 mg EVERY 8 HOURS ORAL 02/19/18 14:00 03/06/18 08:59 02/20/18 05:52 Diphenhydramine HCl (Benadryl) 25 mg Q6H PRN ORAL Itching 02/19/18 11:00 03/05/18 16:59 Fluoxetine HCl (PROzac) 20 mg DAILY ORAL 02/20/18 09:00 03/06/18 08:59 02/20/18 08:47 Ipratropium [place] (Atrovent) 500 mcg Q6HRT HHN 02/19/18 13:00 02/20/18 11:59 02/20/18 07:13 Levalbuterol HCl (Xopenex) 0.625 mg Q6HRT HHN 02/19/18 13:00 02/20/18 12:59 02/20/18 07:12 Methylprednisolone Sodium Succinate (Solu-MEDROL) 30 mg DAILY IVP 02/20/18 09:00 03/21/18 08:59 02/20/18 08:47 Pantoprazole (Protonix) 40 mg DAILY IVP 02/20/18 09:00 03/20/18 08:59 02/20/18 08:47 Piperacillin Sod/ Tazobactam Sod 3.375 gm/Dextrose 110 ml @ 27.5 mls/hr EVERY 8 HOURS IVPB 02/19/18 14:00 02/23/18 13:59 02/20/18 05:52 Tiotropium [place] (Spiriva Inhaler) 1 puff DAILY INH 02/20/18 09:00 03/06/18 08:59 02/20/18 10:55 Vitamin A/Vitamin D (A & D Oint) 1 applic EVERY 12 HOURS TOPIC 02/19/18 21:00 03/21/18 20:59 02/20/18 08:47 Radha Macias MD Feb 20, 2018 11:00
[2018-02-20 12:00] VITALS: BP 146/77
[2018-02-20 13:06] LABS: APPEARANCE,URINE SLIGHTLY CLOUDY; BILIRUBIN, URINE NEGATIVE (NEGATIVE); COLOR,URINE PALE YELLOW; GLUCOSE, URINE (UA) NEGATIVE (NEGATIVE); KETONES,URINE NEGATIVE (NEGATIVE); LEUKOCYTE ESTERASE ,URINE 3+ (NEGATIVE); NITRITE,URINE NEGATIVE (NEGATIVE); PH,URINE 6.5 (4.5-8.0); PROTEIN,URINE 3+ (NEGATIVE); UROBILINOGEN,URINE NORMAL MG/DL (0.0-1.0)
[2018-02-20 16:00] VITALS: BP 138/81
--- NOTE | 2018-02-20 16:01 | Pulmonology Progress Note ---
Assessment/Plan Assessment/Plan IMPRESSION: Acute respiratory failure, COPD with acute exacerbation, respiratory acidosis and associated hypoxemia, cardiomegaly, pleural effusion and pulmonary edema, protein-calorie malnutrition. PLAN ok to floor seen earlier respiratory care reviewed IV antibiotics IV steroids taper- to prednisone supportive care as able monitor closely for now and try to wean daily guarded feeds position change and monitor for change skin monitoring DVT prophylaxis hope to avoid trach medications/laboratory data/nursing notes/ICU care reviewed in detail note reviewed and edited care discussed with RN and RT ICU time spent 40 minutes Critical Care - Subjective Interval Events: stable and off vent no distress on oxygen Condition: improving EKG Rhythm: Sinus Rhythm I&O: Intake and Output 02/18/18 02/19/18 19:00 07:00 Intake Total 880.0 ml 357.5 ml Output Total 1460 ml 600 ml Balance -580.0 ml -242.5 ml IV Total 220.0 ml 137.5 ml Tube Feeding 660 ml 220 ml Output Urine Total 1460 ml 600 ml # Bowel Movements 2 Critical Care - Objective CXR: minimal atelectasis ET-Tube: 7.5 ET Position: 24 Last 24 Hour Vital Signs Date Time Temp Pulse Resp B/P (MAP) Pulse Ox O2 Delivery O2 Flow Rate FiO2 02/19/18 19:20 Nasal Cannula 2.0 28 02/19/18 19:20 82 16 98 Nasal Cannula 2.0 28 02/19/18 19:20 98 Nasal Cannula 2.0 28 02/19/18 17:10 81 02/19/18 16:00 97.8 76 16 155/80 (105) 99 97.8 02/19/18 16:00 78 02/19/18 16:00 Nasal Cannula 2.0 Nasal Cannula 2.0 02/19/18 14:53 85 147/93 02/19/18 13:55 85 16 100 Nasal Cannula 2.0 28 02/19/18 13:45 84 16 98 Nasal Cannula 2.0 28 02/19/18 12:00 76 02/19/18 12:00 Nasal Cannula 2.0 Nasal Cannula 2.0 02/19/18 12:00 97.5 76 16 147/93 (111) 100 97.5 02/19/18 10:20 02/19/18 09:00 80 15 144/78 (100) 100 02/19/18 08:00 77 21 155/80 (105) 99 10/23/18 08:00 85 02/19/18 08:00 Nasal Cannula 2.0 Nasal Cannula 2.0 02/19/18 07:48 76 16 100 Nasal Cannula 2.0 28 02/19/18 07:46 Nasal Cannula 3.0 32 02/19/18 07:39 87 16 98 Nasal Cannula 2.0 28 02/19/18 07:38 98 Nasal Cannula 3.0 32 02/19/18 07:00 98.4 78 22 156/88 (110) 99 98.4 02/19/18 06:12 80 164/83 02/19/18 06:00 79 22 164/83 (110) 99 02/19/18 05:00 79 22 161/91 (114) 99 02/19/18 04:00 Nasal Cannula 2.0 Nasal Cannula 2.0 02/19/18 04:00 78 22 166/84 (111) 99 02/19/18 04:00 80 02/19/18 03:00 80 22 166/82 (110) 99 02/19/18 02:00 82 22 146/90 (108) 99 02/19/18 01:00 98.2 81 22 148/69 (95) 99 98.2 02/19/18 00:58 73 17 100 Nasal Cannula 2.0 28 02/19/18 00:57 28 02/19/18 00:50 76 17 99 Nasal Cannula 2.0 28 02/19/18 00:00 85 02/19/18 00:00 Nasal Cannula 2.0 Nasal Cannula 2.0 02/19/18 00:00 76 22 150/79 (102) 99 02/18/18 23:00 91 22 146/93 (110) 99 02/18/18 22:00 88 22 130/65 (86) 99 02/18/18 21:55 91 140/80 02/18/18 21:00 98.0 93 22 140/80 (100) 99 98.0 02/18/18 20:00 83 02/18/18 20:00 90 22 124/71 (88) 99 02/18/18 20:00 Nasal Cannula 2.0 Nasal Cannula 2.0 Labs: Labs Test 02/17/18 18:17 02/18/18 04:00 02/18/18 14:11 02/19/18 04:54 Urine Color Red Urine Appearance Turbid Urine pH 7 (4.5-8.0) Urine Specific [place] 1.010 (1.005-1.035) Urine Protein 3+ (NEGATIVE) Urine Glucose (UA) Negative (NEGATIVE) Urine Ketones Negative (NEGATIVE) Urine Blood 5+ (NEGATIVE) Urine Nitrite Negative (NEGATIVE) Urine Bilirubin Negative (NEGATIVE) Urine Urobilinogen Normal MG/DL (0.0-1.0) Urine Leukocyte Esterase 3+ (NEGATIVE) Urine RBC Tntc /HPF (0 - 2) Urine WBC 15-20 /HPF (0 - 2) Urine Squamous Epithelial Cells Few /LPF (NONE/OCC) Urine Bacteria Few /HPF (NONE) White Blood Count 11.1 K/UL (4.8-10.8) 10.0 K/UL (4.8-10.8) Red Blood Count 5.20 M/UL (4.20-5.40) 5.32 M/UL (4.20-5.40) Hemoglobin 14.8 G/DL (12.0-16.0) 14.8 G/DL (12.0-16.0) Hematocrit 46.1 % (37.0-47.0) 47.8 % (37.0-47.0) Mean Corpuscular Volume 89 FL (80-99) 90 FL (80-99) Mean Corpuscular Hemoglobin 28.4 PG (27.0-31.0) 27.8 PG (27.0-31.0) Mean Corpuscular Hemoglobin Concent 32.0 G/DL (32.0-36.0) 30.9 G/DL (32.0-36.0) Red Cell Distribution Width 14.3 % (11.6-14.8) 14.1 % (11.6-14.8) Platelet Count 141 K/UL (150-450) 137 K/UL (150-450) Mean Platelet Volume 6.8 FL (6.5-10.1) 7.3 FL (6.5-10.1) Neutrophils (%) (Auto) % (45.0-75.0) % (45.0-75.0) Lymphocytes (%) (Auto) % (20.0-45.0) % (20.0-45.0) Monocytes (%) (Auto) % (1.0-10.0) % (1.0-10.0) Eosinophils (%) (Auto) % (0.0-3.0) % (0.0-3.0) Basophils (%) (Auto) % (0.0-2.0) % (0.0-2.0) Differential Total Cells Counted 100 100 Neutrophils % (Manual) 91 % (45-75) 88 % (45-75) Lymphocytes % (Manual) 3 % (20-45) 5 % (20-45) Monocytes % (Manual) 6 % (1-10) 7 % (1-10) Eosinophils % (Manual) 0 % (0-3) 0 % (0-3) Basophils % (Manual) 0 % (0-2) 0 % (0-2) Band Neutrophils 0 % (0-8) 0 % (0-8) Platelet Estimate Decreased Decreased Platelet Morphology Normal Normal Red Blood Cell Morphology Normal Normal Sodium Level 140 MMOL/L (136-145) 142 MMOL/L (136-145) Potassium Level 3.8 MMOL/L (3.5-5.1) 3.8 MMOL/L (3.5-5.1) Chloride Level 104 MMOL/L (98-107) 103 MMOL/L (98-107) Carbon Dioxide Level 31 MMOL/L (21-32) 34 MMOL/L (21-32) Anion Gap 5 mmol/L (5-15) 5 mmol/L (5-15) Blood Urea Nitrogen 17 mg/dL (7-18) 19 mg/dL (7-18) Creatinine 0.6 MG/DL (0.55-1.30) 0.5 MG/DL (0.55-1.30) Estimat Glomerular Filtration Rate mL/min (>60) mL/min (>60) Glucose Level 125 MG/DL (74-106) 121 MG/DL (74-106) Calcium Level 8.9 MG/DL (8.5-10.1) 9.2 MG/DL (8.5-10.1) Total Bilirubin 0.3 MG/DL (0.2-1.0) 0.4 MG/DL (0.2-1.0) Aspartate Amino Transf (AST/SGOT) 8 U/L (15-37) 5 U/L (15-37) Alanine Aminotransferase (ALT/SGPT) 15 U/L (12-78) 17 U/L (12-78) Alkaline Phosphatase 82 U/L (46-116) 76 U/L (46-116) Total Protein 5.9 G/DL (6.4-8.2) 6.1 G/DL (6.4-8.2) Albumin 2.3 G/DL (3.4-5.0) 2.5 G/DL (3.4-5.0) Globulin 3.6 g/dL 3.6 g/dL Albumin/Globulin Ratio 0.6 (1.0-2.7) 0.7 (1.0-2.7) Arterial Blood pH 7.450 (7.350-7.450) Arterial Blood Partial Pressure CO2 48.4 mmHg (35.0-45.0) Arterial Blood Partial Pressure O2 86.4 mmHg (75.0-100.0) Arterial Blood HCO3 33.3 mmol/L (22.0-26.0) Arterial Blood Oxygen Saturation 97.0 % (95-100) Arterial Blood Base Excess 7.9 (-2-2) Tarun Test Positive Phosphorus Level 2.3 MG/DL (2.5-4.9) Magnesium Level 1.9 MG/DL (1.8-2.4) Pro-B-Type Natriuretic Peptide 449 pg/mL (0-125) Objective: GENERAL: sedated/withdrawn; off vent; on NC NECK: Supple. No adenopathy. No jugular venous distention. orally intubated LUNGS: Moderate breath sounds. no rhonchi. No wheezes. stable CARDIAC: S1 and S2. Regular rhythm without murmurs, rubs, or gallops. ABDOMEN: Soft, nontender, nondistended. no HSM; feeding tube in place EXTREMITIES: No cyanosis, clubbing; trace edema. NEUROLOGIC: Grossly nonfocal, sedated reviewed and examined Micro: Microbiology Date/Time Source Procedure Growth Status 02/17/18 18:17 Indwelling Cath Urine Culture - Preliminary NO GROWTH Resulted Subjective ROS Limited/Unobtainable: No Allergies: Coded Allergies: No Known Allergies (Unverified , 12/10/15) Objective Last 24 Hour Vital Signs Date Time Temp Pulse Resp B/P (MAP) Pulse Ox O2 Delivery O2 Flow Rate FiO2 02/20/18 13:52 86 146/77 10/24/18 13:34 86 02/20/18 12:00 Nasal Cannula 2.0 02/20/18 12:00 98.1 84 16 146/77 (100) 97 98.1 02/20/18 08:49 90 02/20/18 08:00 98.1 89 18 108/56 (73) 97 98.1 02/20/18 08:00 Nasal Cannula 2.0 02/20/18 07:23 86 18 100 Nasal Cannula 2.0 28 02/20/18 07:13 98 Nasal Cannula 2.0 28 02/20/18 07:13 85 18 98 Nasal Cannula 2.0 28 02/20/18 07:12 Nasal Cannula 2.0 28 02/20/18 05:52 74 145/83 02/20/18 04:00 Nasal Cannula 2.0 02/20/18 03:36 74 02/20/18 01:00 Nasal Cannula 2.0 28 02/20/18 01:00 Nasal Cannula 2.0 28 02/20/18 00:00 86 02/20/18 00:00 Nasal Cannula 2.0 02/19/18 23:29 98.1 83 12 145/83 (103) 100 98.1 02/19/18 21:33 84 135/75 02/19/18 20:00 86 02/19/18 20:00 Nasal Cannula 2.0 02/19/18 19:29 94 16 100 Nasal Cannula 2.0 28 02/19/18 19:20 Nasal Cannula 2.0 28 02/19/18 19:20 82 16 98 Nasal Cannula 2.0 28 02/19/18 19:20 98 Nasal Cannula 2.0 28 02/19/18 17:10 81 Intake and Output 02/19/18 02/20/18 19:00 07:00 Intake Total 82.5 ml 113.52 ml Output Total 690 ml 1400 ml Balance -607.5 ml -1286.48 ml IV Total 82.5 ml 113.52 ml Tube Feeding 0 ml Output Urine Total 690 ml 1400 ml # Bowel Movements 1 Microbiology Date/Time Source Procedure Growth Status 02/17/18 18:17 Indwelling Cath Urine Culture - Preliminary NO GROWTH AFTER 24 HOURS Resulted Laboratory Tests 02/20/18 12:50: Urine Color Pale yellow, Urine Appearance Slightly cloudy, Urine pH 6.5, Urine Specific [place] 1.010, Urine Protein 3+H, Urine Glucose (UA) Negative, Urine Ketones Negative, Urine Blood 5+H, Urine Nitrite Negative, Urine Bilirubin Negative, Urine Urobilinogen Normal, Urine Leukocyte Esterase 3+H, Urine RBC TntcH, Urine WBC 10-15H, Urine Squamous Epithelial Cells Few, Urine Bacteria Few Current Medications Medications (Trade) Dose Ordered Sig/Isabella Route PRN Reason Start Time Stop Time Status Last Admin Dose Admin Acetaminophen (Tylenol) 650 mg Q6H PRN ORAL Mild Pain/Temp > 100.5 02/19/18 10:30 03/05/18 16:29 Acyclovir (Zovirax) 800 mg EVERY 6 HOURS ORAL 02/20/18 12:30 03/22/18 12:29 02/20/18 12:49 Bisacodyl (Dulcolax) 10 mg DAILYPRN PRN RECTAL Constipation 02/19/18 10:30 03/14/18 10:29 Clonidine HCl (Catapres Tab) 0.1 mg Q4H PRN ORAL SBP above 150 02/19/18 10:30 03/21/18 10:29 Diltiazem HCl (Cardizem) 60 mg EVERY 8 HOURS ORAL 02/19/18 14:00 03/06/18 08:59 02/20/18 13:52 Diphenhydramine HCl (Benadryl) 25 mg Q6H PRN ORAL Itching 02/19/18 11:00 03/05/18 16:59 Fluoxetine HCl (PROzac) 20 mg DAILY ORAL 02/20/18 09:00 03/06/18 08:59 02/20/18 08:47 Methylprednisolone Sodium Succinate (Solu-MEDROL) 30 mg DAILY IVP 02/20/18 09:00 03/21/18 08:59 02/20/18 08:47 Pantoprazole (Protonix) 40 mg DAILY IVP 02/20/18 09:00 03/20/18 08:59 02/20/18 08:47 Piperacillin Sod/ Tazobactam Sod 3.375 gm/Dextrose 110 ml @ 27.5 mls/hr EVERY 8 HOURS IVPB 02/19/18 14:00 02/23/18 13:59 02/20/18 13:53 Tiotropium Sheldon (Spiriva Inhaler) 1 puff DAILY INH 02/20/18 09:00 03/06/18 08:59 02/20/18 10:55 Vitamin A/Vitamin D (A & D Oint) 1 applic EVERY 12 HOURS TOPIC 02/19/18 21:00 03/21/18 20:59 02/20/18 08:47 Ashvin Serrano MD Feb 20, 2018 16:01
[2018-02-20 20:00] VITALS: BP 144/76
[2018-02-21] VITALS: BP 134/66
--- NOTE | 2018-02-21 01:15 | Progress Note ---
CARDIOLOGY PROGRESS NOTE DATE: 02/20/2018 SUBJECTIVE: The patient has remained off ventilator support for over 24 hours, in no distress. Urine is slightly clear. OBJECTIVE: VITAL SIGNS: Blood pressure 145/82, pulse 85, and respirations 18. LUNGS: Diminished breath sounds. Few rhonchi. CARDIAC: Regular rhythm and rate. Normal S1, S2 with a fourth heart sound. ABDOMEN: Soft. EXTREMITIES: Trace edema. IMPRESSION: 1. Status post respiratory failure. 2. Chronic obstructive pulmonary disease. 3. Respiratory acidosis. 4. Acute on chronic hypophosphatemia. 5. Acute diastolic congestive heart failure. 6. Moderate to severe protein calorie malnutrition. 7. Compensatory metabolic alkalosis. 8. Hematuria, likely due to acute cystitis in the setting of anticoagulant and anti-platelet therapy. PLAN: 1. Respiratory support. 2. Bronchodilators and steroid taper. 3. Antimicrobials. 4. Nutritional support. 5. Swallow evaluation. 6. Phosphate replacement. 7. Hold diuresis. 8. Hold anti-platelet and anticoagulants. Ashvin Wu M.D. DR: ALYCIA JOB#: [id number] CC:
--- NOTE | 2018-02-21 01:15 | Progress Note ---
DATE: 02/19/2018 CARDIOLOGY PROGRESS NOTE Late entry for 02/19/2018. SUBJECTIVE: The patient was seen and evaluated. Discussed with primary care physician. She was extubated. She is in no distress. She continues to have hematuria and she is off anti-platelet and anticoagulant for several days now. OBJECTIVE: VITAL SIGNS: Blood pressure 144/78, pulse 80, and respirations 15. LUNGS: Bilateral breath sounds. No wheezing. HEART: Regular rhythm and rate. Normal S1, S2. ABDOMEN: Soft. NG-tube remains in place. EXTREMITIES: Trace edema. LABORATORY DATA: White count is 10 and hemoglobin 14.8. Urinalysis with too numerous to count red cells and 10 to 15 white cells. Phosphorus 2.3. Magnesium 1.9. Pro-natriuretic peptide 449. Albumin 2.5. BUN 19 and creatinine 0.5. Renal ultrasound with no hydro. IMPRESSION: 1. Respiratory failure status post extubation. 2. Acute on chronic respiratory acidosis, resolved. 3. Healthcare-acquired pneumonia. 4. Acute diastolic congestive heart failure, mostly right-sided. 5. Hypophosphatemia. 6. Mkabikvs-wr-kjvqmn protein-calorie malnutrition. 7. Paroxysmal atrial fibrillation. 8. Hypertensive heart disease. PLAN: 1. Wean steroids. 2. Continue antimicrobials. 3. Respiratory hygiene. 4. Bronchodilators. 5. Periodic diuresis based on clinical parameters. 6. Titrate antihypertensives as well. Ashvin Wu M.D. DR: COOPER JOB#: [id number] CC:
[2018-02-21 04:00] VITALS: BP 139/80
[2018-02-21] MEDS: Piperacillin/Tazobactam 3.375 GM in D5W 110 ML IVPB SCH ×3 (05:31→21:15)
[2018-02-21] MEDS: dilTIAZem HCl 60mg tab ORAL SCH ×3 (05:33→21:15)
--- NOTE | 2018-02-21 07:57 | Critical Care Progress Note ---
Assessment/Plan Assessment/Plan IMPRESSION: Acute respiratory failure, COPD with acute exacerbation, respiratory acidosis and associated hypoxemia, cardiomegaly, pleural effusion and pulmonary edema, protein-calorie malnutrition. PLAN monitor as is respiratory care reviewed PO prednisone supportive care as able monitor closely for now and try to wean daily guarded feeds position change and monitor for change skin monitoring DVT prophylaxis medications/laboratory data/nursing notes reviewed in detail note reviewed and edited care discussed with RN and RT Critical Care - Subjective Interval Events: stable out of ICU EKG Rhythm: Sinus Rhythm I&O: Intake and Output 02/20/18 02/21/18 18:59 06:59 Intake Total 940.0 ml 523.75 ml Output Total 800 ml 1400 ml Balance 140.0 ml -876.25 ml Intake Oral 720 ml 400 ml IV Total 220.0 ml 123.75 ml Output Urine Total 800 ml 1400 ml # Bowel Movements 2 Critical Care - Objective ET-Tube: 7.5 ET Position: 24 Last 24 Hour Vital Signs Date Time Temp Pulse Resp B/P (MAP) Pulse Ox O2 Delivery O2 Flow Rate FiO2 02/21/18 07:20 Nasal Cannula 2.0 28 02/21/18 07:20 97 Nasal Cannula 2.0 28 02/21/18 05:33 73 139/80 02/21/18 04:00 Nasal Cannula 2.0 02/21/18 04:00 98.5 73 16 139/80 (99) 98 02/21/18 03:33 81 02/21/18 00:00 98.7 90 20 134/66 (88) 97 02/21/18 00:00 Nasal Cannula 2.0 02/20/18 23:29 92 02/20/18 21:36 82 144/76 02/20/18 20:00 82 02/20/18 20:00 Nasal Cannula 2.0 02/20/18 20:00 98.7 85 16 144/76 (98) 95 02/20/18 19:56 Nasal Cannula 2.0 28 02/20/18 19:55 96 Nasal Cannula 2.0 28 02/20/18 17:00 93 02/20/18 16:00 98.2 85 16 138/81 (100) 96 02/20/18 16:00 Nasal Cannula 2.0 02/20/18 13:52 86 146/77 02/20/18 13:34 86 02/20/18 12:00 Nasal Cannula 2.0 02/20/18 12:00 98.1 84 16 146/77 (100) 97 98.1 02/20/18 08:49 90 02/20/18 08:00 98.1 89 18 108/56 (73) 97 98.1 02/20/18 08:00 Nasal Cannula 2.0 Labs: Labs Test 02/18/18 14:11 02/19/18 04:54 02/20/18 12:50 Arterial Blood pH 7.450 (7.350-7.450) Arterial Blood Partial Pressure CO2 48.4 mmHg (35.0-45.0) Arterial Blood Partial Pressure O2 86.4 mmHg (75.0-100.0) Arterial Blood HCO3 33.3 mmol/L (22.0-26.0) Arterial Blood Oxygen Saturation 97.0 % (95-100) Arterial Blood Base Excess 7.9 (-2-2) Tarun Test Positive White Blood Count 10.0 K/UL (4.8-10.8) Red Blood Count 5.32 M/UL (4.20-5.40) Hemoglobin 14.8 G/DL (12.0-16.0) Hematocrit 47.8 % (37.0-47.0) Mean Corpuscular Volume 90 FL (80-99) Mean Corpuscular Hemoglobin 27.8 PG (27.0-31.0) Mean Corpuscular Hemoglobin Concent 30.9 G/DL (32.0-36.0) Red Cell Distribution Width 14.1 % (11.6-14.8) Platelet Count 137 K/UL (150-450) Mean Platelet Volume 7.3 FL (6.5-10.1) Neutrophils (%) (Auto) % (45.0-75.0) Lymphocytes (%) (Auto) % (20.0-45.0) Monocytes (%) (Auto) % (1.0-10.0) Eosinophils (%) (Auto) % (0.0-3.0) Basophils (%) (Auto) % (0.0-2.0) Differential Total Cells Counted 100 Neutrophils % (Manual) 88 % (45-75) Lymphocytes % (Manual) 5 % (20-45) Monocytes % (Manual) 7 % (1-10) Eosinophils % (Manual) 0 % (0-3) Basophils % (Manual) 0 % (0-2) Band Neutrophils 0 % (0-8) Platelet Estimate Decreased Platelet Morphology Normal Red Blood Cell Morphology Normal Sodium Level 142 MMOL/L (136-145) Potassium Level 3.8 MMOL/L (3.5-5.1) Chloride Level 103 MMOL/L (98-107) Carbon Dioxide Level 34 MMOL/L (21-32) Anion Gap 5 mmol/L (5-15) Blood Urea Nitrogen 19 mg/dL (7-18) Creatinine 0.5 MG/DL (0.55-1.30) Estimat Glomerular Filtration Rate mL/min (>60) Glucose Level 121 MG/DL (74-106) Calcium Level 9.2 MG/DL (8.5-10.1) Phosphorus Level 2.3 MG/DL (2.5-4.9) Magnesium Level 1.9 MG/DL (1.8-2.4) Total Bilirubin 0.4 MG/DL (0.2-1.0) Aspartate Amino Transf (AST/SGOT) 5 U/L (15-37) Alanine Aminotransferase (ALT/SGPT) 17 U/L (12-78) Alkaline Phosphatase 76 U/L (46-116) Pro-B-Type Natriuretic Peptide 449 pg/mL (0-125) Total Protein 6.1 G/DL (6.4-8.2) Albumin 2.5 G/DL (3.4-5.0) Globulin 3.6 g/dL Albumin/Globulin Ratio 0.7 (1.0-2.7) Urine Color Pale yellow Urine Appearance Slightly cloudy Urine pH 6.5 (4.5-8.0) Urine Specific [place] 1.010 (1.005-1.035) Urine Protein 3+ (NEGATIVE) Urine Glucose (UA) Negative (NEGATIVE) Urine Ketones Negative (NEGATIVE) Urine Blood 5+ (NEGATIVE) Urine Nitrite Negative (NEGATIVE) Urine Bilirubin Negative (NEGATIVE) Urine Urobilinogen Normal MG/DL (0.0-1.0) Urine Leukocyte Esterase 3+ (NEGATIVE) Urine RBC Tntc /HPF (0 - 2) Urine WBC 10-15 /HPF (0 - 2) Urine Squamous Epithelial Cells Few /LPF (NONE/OCC) Urine Bacteria Few /HPF (NONE) Objective: GENERAL: sedated/withdrawn; on NC NECK: Supple. No adenopathy. No jugular venous distention. orally intubated LUNGS: Moderate breath sounds. no rhonchi. No wheezes. stable CARDIAC: S1 and S2. Regular rhythm without murmurs, rubs, or gallops. ABDOMEN: Soft, nontender, nondistended. no HSM; feeding tube in place EXTREMITIES: No cyanosis, clubbing; trace edema. NEUROLOGIC: Grossly nonfocal, sedated reviewed and examined Accucheck: 140 Mk Billings MD Feb 21, 2018 07:57
[2018-02-21 08:00] VITALS: BP 114/65
[2018-02-21] MEDS: Pantoprazole Inj IVP SCH (08:34)
[2018-02-21] MEDS: Vitamin A&D Oint 2oz Tube TOPIC SCH ×2 (08:35→21:15)
--- NOTE | 2018-02-21 08:54 | General Progress Note ---
Assessment/Plan Problem List: (1) COPD exacerbation ICD Codes: J44.1 - Chronic obstructive pulmonary disease with (acute) exacerbation SNOMED: 115979582 (2) HTN (hypertension) ICD Codes: I10 - Essential (primary) hypertension SNOMED: 88238036 (3) Hypoxia ICD Codes: R09.02 - Hypoxemia SNOMED: 616752393 (4) Elevated troponin ICD Codes: R74.8 - Abnormal levels of other serum enzymes SNOMED: 919900692, 794715901, 244830439 (5) Renal insufficiency ICD Codes: N28.9 - Disorder of kidney and ureter, unspecified SNOMED: 658911521, 142258491 (6) Respiratory failure ICD Codes: J96.90 - Respiratory failure, unspecified, unspecified whether with hypoxia or hypercapnia SNOMED: 224315646 Qualifiers: Qualified Codes: J96.02 - Acute respiratory failure with hypercapnia (7) Right lower lobe pneumonia ICD Codes: J18.1 - Lobar pneumonia, unspecified organism SNOMED: 424490248 Qualifiers: Qualified Codes: J18.1 - Lobar pneumonia, unspecified organism Status: stable, not improved Assessment/Plan resp rx o2 iv abx per id monitor cxr po steroids may need to go back on bipap today keep dry prn anxiolytics ngt feeds ID appreciated guarded pulm follow up Subjective ROS Limited/Unobtainable: Yes Constitutional: Reports: weakness HEENT: Reports: no symptoms Cardiovascular: Reports: no symptoms Respiratory: Reports: shortness of breath Gastrointestinal/Abdominal: Reports: no symptoms Genitourinary: Reports: no symptoms Neurologic/Psychiatric: Reports: no symptoms Endocrine: Reports: no symptoms Hematologic/Lymphatic: Reports: no symptoms Allergies: Coded Allergies: No Known Allergies (Unverified , 12/10/15) All Systems: reviewed and negative except above Subjective hematuria better. no fever or chills. abg noted- pco2 trending up. did not use bipap last night Objective Last 24 Hour Vital Signs Date Time Temp Pulse Resp B/P (MAP) Pulse Ox O2 Delivery O2 Flow Rate FiO2 02/21/18 08:39 85 18 99 Nasal Cannula 2.0 28 02/21/18 08:37 82 18 99 Nasal Cannula 2.0 28 02/21/18 08:00 98.0 71 22 114/65 (81) 99 02/21/18 08:00 Nasal Cannula 2.0 02/21/18 07:20 Nasal Cannula 2.0 28 02/21/18 07:20 97 Nasal Cannula 2.0 28 02/21/18 05:33 73 139/80 02/21/18 04:00 Nasal Cannula 2.0 02/21/18 04:00 98.5 73 16 139/80 (99) 98 02/21/18 03:33 81 02/21/18 00:00 98.7 90 20 134/66 (88) 97 02/21/18 00:00 Nasal Cannula 2.0 02/20/18 23:29 92 02/20/18 21:36 82 144/76 02/20/18 20:00 82 02/20/18 20:00 Nasal Cannula 2.0 02/20/18 20:00 98.7 85 16 144/76 (98) 95 02/20/18 19:56 Nasal Cannula 2.0 28 02/20/18 19:55 96 Nasal Cannula 2.0 28 02/20/18 17:00 93 02/20/18 16:00 98.2 85 16 138/81 (100) 96 02/20/18 16:00 Nasal Cannula 2.0 02/20/18 13:52 86 146/77 02/20/18 13:34 86 02/20/18 12:00 Nasal Cannula 2.0 02/20/18 12:00 98.1 84 16 146/77 (100) 97 98.1 Intake and Output 02/20/18 02/21/18 18:59 06:59 Intake Total 940.0 ml 523.75 ml Output Total 800 ml 1400 ml Balance 140.0 ml -876.25 ml Intake Oral 720 ml 400 ml IV Total 220.0 ml 123.75 ml Output Urine Total 800 ml 1400 ml # Bowel Movements 2 Laboratory Tests 02/20/18 12:50: Urine Color Pale yellow, Urine Appearance Slightly cloudy, Urine pH 6.5, Urine Specific [place] 1.010, Urine Protein 3+H, Urine Glucose (UA) Negative, Urine Ketones Negative, Urine Blood 5+H, Urine Nitrite Negative, Urine Bilirubin Negative, Urine Urobilinogen Normal, Urine Leukocyte Esterase 3+H, Urine RBC TntcH, Urine WBC 10-15H, Urine Squamous Epithelial Cells Few, Urine Bacteria Few 02/21/18 08:25: Arterial Blood pH 7.357, Arterial Blood Partial Pressure CO2 72.9*H, Arterial Blood Partial Pressure O2 90.4, Arterial Blood HCO3 40.0H, Arterial Blood Oxygen Saturation 96.8, Arterial Blood Base Excess 11.4*H, Tarun Test Positive Height (Feet): 5 Height (Inches): 6.00 Weight (Pounds): 210 Objective General Appearance: WD/WN, resting. on nasal cannula, opens eyes. alert. follows commands Neck: supple Cardiovascular: regular rhythm Respiratory/Chest: lungs mostly clear, few rhonchi Abdomen: normal bowel sounds, non tender, soft, no organomegaly Edema: no edema noted Arm (L), no edema noted Arm (R), no edema noted Leg (L), no edema noted Leg (R), no edema noted Pedal (L), no edema noted Pedal (R), no edema noted Generalized Manan Byrd MD Feb 21, 2018 08:54
[2018-02-21 09:39] LABS: BASOPHILS % (AUTO) 0.9 % (0.0-2.0); HEMATOCRIT 46.5 % (37.0-47.0); HEMOGLOBIN 14.1 G/DL (12.0-16.0); LYMPHOCYTES % (AUTO) 14.8 % (20.0-45.0); MEAN CORPUSCULAR VOLUME 92 FL (80-99); MONOCYTES % (AUTO) 6.8 % (1.0-10.0); NEUTROPHILS % (AUTO) 76.5 % (45.0-75.0); PLATELET COUNT 131 K/UL (150-450); RED BLOOD COUNT 5.06 M/UL (4.20-5.40); RED CELL DISTRIBUTION WIDTH 14.5 % (11.6-14.8); WHITE BLOOD COUNT 8.4 K/UL (4.8-10.8)
[2018-02-21 10:07] LABS: ALANINE AMINOTRANSFERASE 11 U/L (12-78); ALBUMIN 2.3 G/DL (3.4-5.0); ALBUMIN/GLOBULIN RATIO 0.7 (1.0-2.7); ALKALINE PHOSPHATASE 68 U/L (46-116); ANION GAP 1 mmol/L (5-15); ASPARTATE AMINO TRANSFERASE 8 U/L (15-37); BILIRUBIN,TOTAL 0.5 MG/DL (0.2-1.0); BLOOD UREA NITROGEN 14 mg/dL (7-18); CALCIUM 8.6 MG/DL (8.5-10.1); CARBON DIOXIDE 38 MMOL/L (21-32); CHLORIDE 101 MMOL/L (98-107); CREATININE 0.6 MG/DL (0.55-1.30); POTASSIUM 3.6 MMOL/L (3.5-5.1); SODIUM 140 MMOL/L (136-145)
[2018-02-21 12:00] VITALS: BP 147/77
--- NOTE | 2018-02-21 12:56 | Urology Progress Note ---
Assessment/Plan Assessment/Plan 1. Gross hematuria. 2. Urinary retention. 3. Probable neurogenic bladder. 4. Pyuria. 5. Proteinuria. 6. Possible hemorrhagic cystitis. monitor clinically arellano hand irrigated and do PRN no active bleeding cont with abx as ordered off anticoagulation f/u on renal u/s monitor h/h cysto later Subjective Allergies: Coded Allergies: No Known Allergies (Unverified , 12/10/15) Subjective all noted, comfortable Objective Last 24 Hour Vital Signs Date Time Temp Pulse Resp B/P (MAP) Pulse Ox O2 Delivery O2 Flow Rate FiO2 02/21/18 12:00 25 02/21/18 12:00 97.9 78 20 147/77 (100) 96 02/21/18 12:00 Nasal Cannula 2.0 02/21/18 12:00 82 02/21/18 11:21 86 18 99 Facial 25 02/21/18 09:20 25 02/21/18 09:19 83 18 98 Facial 25 02/21/18 08:39 85 18 99 Nasal Cannula 2.0 28 02/21/18 08:37 82 18 99 Nasal Cannula 2.0 28 02/21/18 08:00 98.0 71 22 114/65 (81) 99 02/21/18 08:00 Nasal Cannula 2.0 02/21/18 08:00 84 02/21/18 07:20 Nasal Cannula 2.0 02/21/18 07:20 97 Nasal Cannula 2.0 02/21/18 05:33 73 139/80 02/21/18 04:00 Nasal Cannula 2.0 02/21/18 04:00 98.5 73 16 139/80 (99) 98 02/21/18 03:33 81 02/21/18 00:00 98.7 90 20 134/66 (88) 97 02/21/18 00:00 Nasal Cannula 2.0 02/20/18 23:29 92 02/20/18 21:36 82 144/76 02/20/18 20:00 82 02/20/18 20:00 Nasal Cannula 2.0 02/20/18 20:00 98.7 85 16 144/76 (98) 95 02/20/18 19:56 Nasal Cannula 2.0 28 02/20/18 19:55 96 Nasal Cannula 2.0 28 02/20/18 17:00 93 02/20/18 16:00 98.2 85 16 138/81 (100) 96 02/20/18 16:00 Nasal Cannula 2.0 02/20/18 13:52 86 146/77 02/20/18 13:34 86 Intake and Output 02/20/18 02/21/18 19:00 07:00 Intake Total 912.5 ml 551.25 ml Output Total 800 ml 1400 ml Balance 112.5 ml -848.75 ml Intake Oral 720 ml 400 ml IV Total 192.5 ml 151.25 ml Output Urine Total 800 ml 1400 ml # Bowel Movements 2 Microbiology Date/Time Source Procedure Growth Status 02/03/18 15:30 Blood Blood Culture - Final NO GROWTH AFTER 5 DAYS Complete 02/20/18 18:40 Stool Clostridium difficile Toxin Assay - Final Complete 02/20/18 12:50 Urine,Clean Catch Urine Culture - Preliminary NO GROWTH Resulted 02/03/18 15:30 Rectal Mucosa - Final NO CARBAPENEM-RESISTANT ENTEROBACTERI... Complete Current Medications Medications (Trade) Dose Ordered Sig/Isabella Route PRN Reason Start Time Stop Time Status Last Admin Dose Admin Acetaminophen (Tylenol) 650 mg Q6H PRN ORAL Mild Pain/Temp > 100.5 02/19/18 10:30 03/05/18 16:29 Acyclovir (Zovirax) 800 mg EVERY 6 HOURS ORAL 02/20/18 12:30 03/22/18 12:29 02/21/18 11:50 Bisacodyl (Dulcolax) 10 mg DAILYPRN PRN RECTAL Constipation 02/19/18 10:30 03/14/18 10:29 Clonidine HCl (Catapres Tab) 0.1 mg Q4H PRN ORAL SBP above 150 02/19/18 10:30 03/21/18 10:29 Diltiazem HCl (Cardizem) 60 mg EVERY 8 HOURS ORAL 02/19/18 14:00 03/06/18 08:59 02/21/18 05:33 Diphenhydramine HCl (Benadryl) 25 mg Q6H PRN ORAL Itching 02/19/18 11:00 03/05/18 16:59 Fluoxetine HCl (PROzac) 20 mg DAILY ORAL 02/20/18 09:00 03/06/18 08:59 02/21/18 08:34 Furosemide (Lasix) 20 mg DAILY IV 02/21/18 09:00 03/23/18 08:59 02/21/18 09:26 Pantoprazole (Protonix) 40 mg DAILY IVP 02/20/18 09:00 03/20/18 08:59 02/21/18 08:34 Piperacillin Sod/ Tazobactam Sod 3.375 gm/Dextrose 110 ml @ 27.5 mls/hr EVERY 8 HOURS IVPB 02/19/18 14:00 02/23/18 13:59 02/21/18 05:31 Prednisone (predniSONE) 20 mg DAILY ORAL 02/21/18 09:00 03/23/18 08:59 02/21/18 08:34 Tiotropium [place] (Spiriva Inhaler) 1 puff DAILY INH 02/20/18 09:00 03/06/18 08:59 02/21/18 08:37 Vitamin A/Vitamin D (A & D Oint) 1 applic EVERY 12 HOURS TOPIC 02/19/18 21:00 03/21/18 20:59 02/21/18 08:35 Laboratory Tests 02/21/18 08:25: Arterial Blood pH 7.357, Arterial Blood Partial Pressure CO2 72.9*H, Arterial Blood Partial Pressure O2 90.4, Arterial Blood HCO3 40.0H, Arterial Blood Oxygen Saturation 96.8, Arterial Blood Base Excess 11.4*H, Tarun Test Positive 02/21/18 09:15: White Blood Count 8.4, Red Blood Count 5.06, Hemoglobin 14.1, Hematocrit 46.5, Mean Corpuscular Volume 92, Mean Corpuscular Hemoglobin 27.9, Mean Corpuscular Hemoglobin Concent 30.3L, Red Cell Distribution Width 14.5, Platelet Count 131L , Mean Platelet Volume 6.9, Neutrophils (%) (Auto) 76.5H, Lymphocytes (%) (Auto ) 14.8L, Monocytes (%) (Auto) 6.8, Eosinophils (%) (Auto) 1.0, Basophils (%) ( Auto) 0.9, Sodium Level 140, Potassium Level 3.6, Chloride Level 101, Carbon Dioxide Level 38H, Anion Gap 1L, Blood Urea Nitrogen 14, Creatinine 0.6, Estimat Glomerular Filtration Rate , Glucose Level 127H, Calcium Level 8.6, Total Bilirubin 0.5, Aspartate Amino Transf (AST/SGOT) 8L, Alanine Aminotransferase (ALT/SGPT) 11L, Alkaline Phosphatase 68, Total Protein 5.7L, Albumin 2.3L, Globulin 3.4, Albumin/Globulin Ratio 0.7L 02/21/18 11:20: Arterial Blood pH 7.408, Arterial Blood Partial Pressure CO2 68.4*H, Arterial Blood Partial Pressure O2 78.7, Arterial Blood HCO3 42.2*H, Arterial Blood Oxygen Saturation 96.5, Arterial Blood Base Excess 14.1*H, Tarun Test Positive Height (Feet): 5 Height (Inches): 6.00 Weight (Pounds): 210 Objective exam stable, urine blood-tinged renal u/s result pending LOIS ESPARZA Feb 21, 2018 12:56
[2018-02-21 15:42] VITALS: BP 128/69
[2018-02-21 20:00] VITALS: BP 130/80
[2018-02-22] VITALS (7 sets, daily range): BP systolic 119–163; BP diastolic 58–102
[2018-02-22] MEDS: Piperacillin/Tazobactam 3.375 GM in D5W 110 ML IVPB SCH ×3 (05:40→21:24)
[2018-02-22] MEDS: dilTIAZem HCl 60mg tab ORAL SCH ×3 (05:40→21:24)
--- NOTE | 2018-02-22 08:14 | General Progress Note ---
Assessment/Plan Problem List: (1) COPD exacerbation ICD Codes: J44.1 - Chronic obstructive pulmonary disease with (acute) exacerbation SNOMED: 356602914 (2) HTN (hypertension) ICD Codes: I10 - Essential (primary) hypertension SNOMED: 82108905 (3) Hypoxia ICD Codes: R09.02 - Hypoxemia SNOMED: 489843691 (4) Elevated troponin ICD Codes: R74.8 - Abnormal levels of other serum enzymes SNOMED: 882928240, 731746835, 942710137 (5) Renal insufficiency ICD Codes: N28.9 - Disorder of kidney and ureter, unspecified SNOMED: 567930216, 381858725 (6) Respiratory failure ICD Codes: J96.90 - Respiratory failure, unspecified, unspecified whether with hypoxia or hypercapnia SNOMED: 021970938 Qualifiers: Qualified Codes: J96.02 - Acute respiratory failure with hypercapnia (7) Right lower lobe pneumonia ICD Codes: J18.1 - Lobar pneumonia, unspecified organism SNOMED: 164771536 Qualifiers: Qualified Codes: J18.1 - Lobar pneumonia, unspecified organism Status: stable, progressing Assessment/Plan resp rx o2 iv abx per id monitor cxr po steroids bipap per pulm keep dry ID appreciated guarded dc planning when cleared by pulm Subjective ROS Limited/Unobtainable: No Constitutional: Reports: malaise, weakness HEENT: Reports: no symptoms Cardiovascular: Reports: no symptoms Respiratory: Reports: cough, shortness of breath Gastrointestinal/Abdominal: Reports: no symptoms Genitourinary: Reports: no symptoms Neurologic/Psychiatric: Reports: anxiety Endocrine: Reports: no symptoms Hematologic/Lymphatic: Reports: no symptoms Allergies: Coded Allergies: No Known Allergies (Unverified , 12/10/15) All Systems: reviewed and negative except above Subjective slight hematuria noted. no events. on bipap. no distress. Co2 trending down on bipap. Objective Last 24 Hour Vital Signs Date Time Temp Pulse Resp B/P (MAP) Pulse Ox O2 Delivery O2 Flow Rate FiO2 02/22/18 06:54 79 17 99 Full Face 25 02/22/18 05:40 82 163/88 02/22/18 05:20 82 16 98 Full Face 25 02/22/18 04:00 98.8 80 16 163/88 (113) 97 02/22/18 04:00 25 02/22/18 04:00 81 02/22/18 04:00 Bi-pap 02/22/18 03:30 80 17 97 Full Face 25 02/22/18 01:28 84 17 98 Full Face 25 02/22/18 00:00 25 02/22/18 00:00 98.5 95 16 146/81 (102) 98 02/22/18 00:00 Bi-pap 02/22/18 00:00 88 02/21/18 23:30 89 18 97 Facial 25 02/21/18 21:20 88 19 98 Facial 25 02/21/18 21:15 89 130/80 02/21/18 20:00 25 02/21/18 20:00 98.4 89 16 130/80 (97) 96 02/21/18 20:00 94 02/21/18 20:00 Nasal Cannula 2.0 02/21/18 18:59 89 18 95 Facial 25 02/21/18 18:59 Nasal Cannula 2.0 28 02/21/18 18:58 96 Nasal Cannula 2.0 28 02/21/18 16:55 78 23 99 Facial 25 02/21/18 16:00 25 02/21/18 16:00 Nasal Cannula 2.0 02/21/18 16:00 86 02/21/18 15:42 97.9 79 23 128/69 (88) 95 02/21/18 15:03 81 23 98 Facial 25 02/21/18 13:33 79 147/77 02/21/18 13:08 79 24 97 Facial 25 02/21/18 12:00 25 02/21/18 12:00 97.9 78 20 147/77 (100) 96 02/21/18 12:00 Nasal Cannula 2.0 02/21/18 12:00 82 02/21/18 11:21 86 18 99 Facial 25 02/21/18 09:20 25 02/21/18 09:19 83 18 98 Facial 25 02/21/18 08:39 85 18 99 Nasal Cannula 2.0 28 02/21/18 08:37 82 18 99 Nasal Cannula 2.0 28 Intake and Output 02/21/18 02/22/18 18:59 06:59 Intake Total 1006.25 ml 737.5 ml Output Total 1700 ml 1400 ml Balance -693.75 ml -662.5 ml Intake Oral 800 ml 600 ml IV Total 206.25 ml 137.5 ml Output Urine Total 1700 ml 1400 ml # Bowel Movements 2 Laboratory Tests 02/21/18 08:25: Arterial Blood pH 7.357, Arterial Blood Partial Pressure CO2 72.9*H, Arterial Blood Partial Pressure O2 90.4, Arterial Blood HCO3 40.0H, Arterial Blood Oxygen Saturation 96.8, Arterial Blood Base Excess 11.4*H, Tarun Test Positive 02/21/18 09:15: White Blood Count 8.4, Red Blood Count 5.06, Hemoglobin 14.1, Hematocrit 46.5, Mean Corpuscular Volume 92, Mean Corpuscular Hemoglobin 27.9, Mean Corpuscular Hemoglobin Concent 30.3L, Red Cell Distribution Width 14.5, Platelet Count 131L , Mean Platelet Volume 6.9, Neutrophils (%) (Auto) 76.5H, Lymphocytes (%) (Auto ) 14.8L, Monocytes (%) (Auto) 6.8, Eosinophils (%) (Auto) 1.0, Basophils (%) ( Auto) 0.9, Sodium Level 140, Potassium Level 3.6, Chloride Level 101, Carbon Dioxide Level 38H, Anion Gap 1L, Blood Urea Nitrogen 14, Creatinine 0.6, Estimat Glomerular Filtration Rate , Glucose Level 127H, Calcium Level 8.6, Total Bilirubin 0.5, Aspartate Amino Transf (AST/SGOT) 8L, Alanine Aminotransferase (ALT/SGPT) 11L, Alkaline Phosphatase 68, Total Protein 5.7L, Albumin 2.3L, Globulin 3.4, Albumin/Globulin Ratio 0.7L 02/21/18 11:20: Arterial Blood pH 7.408, Arterial Blood Partial Pressure CO2 68.4*H, Arterial Blood Partial Pressure O2 78.7, Arterial Blood HCO3 42.2*H, Arterial Blood Oxygen Saturation 96.5, Arterial Blood Base Excess 14.1*H, Tarun Test Positive 02/22/18 07:03: Arterial Blood pH 7.459H, Arterial Blood Partial Pressure CO2 60.5*H, Arterial Blood Partial Pressure O2 76.3, Arterial Blood HCO3 42.0*H, Arterial Blood Oxygen Saturation 95.7, Arterial Blood Base Excess 15.1*H, Tarun Test Positive Height (Feet): 5 Height (Inches): 6.00 Weight (Pounds): 211 Objective General Appearance: WD/WN, resting. on nasal cannula, opens eyes. alert. follows commands Neck: supple Cardiovascular: regular rhythm Respiratory/Chest: lungs mostly clear, few rhonchi Abdomen: normal bowel sounds, non tender, soft, no organomegaly Edema: no edema noted Arm (L), no edema noted Arm (R), no edema noted Leg (L), no edema noted Leg (R), no edema noted Pedal (L), no edema noted Pedal (R), no edema noted Generalized Manan Byrd MD Feb 22, 2018 08:13
[2018-02-22] MEDS: Pantoprazole Inj IVP SCH (08:30)
[2018-02-22] MEDS: Vitamin A&D Oint 2oz Tube TOPIC SCH ×2 (08:31→21:24)
--- NOTE | 2018-02-22 15:10 | Urology Progress Note ---
Assessment/Plan Assessment/Plan 1. Gross hematuria. 2. Urinary retention. 3. Probable neurogenic bladder. 4. Pyuria. 5. Proteinuria. 6. Possible hemorrhagic cystitis. monitor clinically arellano hand irrigated and do PRN no active bleeding cont with abx as ordered off anticoagulation monitor h/h cysto later Subjective Allergies: Coded Allergies: No Known Allergies (Unverified , 12/10/15) Subjective all noted, comfortable Objective Last 24 Hour Vital Signs Date Time Temp Pulse Resp B/P (MAP) Pulse Ox O2 Delivery O2 Flow Rate FiO2 02/22/18 14:19 88 119/58 02/22/18 13:33 25 02/22/18 12:30 2.0 02/22/18 12:00 25 02/22/18 12:00 97.3 88 19 119/58 (78) 97 02/22/18 12:00 85 02/22/18 11:13 81 17 98 Full Face 25 02/22/18 10:18 80 121/72 (88) 02/22/18 10:00 25 02/22/18 09:22 84 18 98 Nasal Cannula 2.0 28 02/22/18 09:19 84 18 98 Nasal Cannula 2.0 28 02/22/18 08:00 2.0 02/22/18 08:00 97.7 84 16 137/102 (114) 99 02/22/18 07:47 77 02/22/18 06:54 98 Bi-pap 25 02/22/18 06:54 Bi-pap 25 02/22/18 06:54 79 17 99 Full Face 25 02/22/18 05:40 82 163/88 02/22/18 05:20 82 16 98 Full Face 25 02/22/18 04:00 98.8 80 16 163/88 (113) 97 02/22/18 04:00 25 02/22/18 04:00 81 02/22/18 04:00 Bi-pap 02/22/18 03:30 80 17 97 Full Face 25 02/22/18 01:28 84 17 98 Full Face 25 02/22/18 00:00 25 02/22/18 00:00 98.5 95 16 146/81 (102) 98 02/22/18 00:00 Bi-pap 02/22/18 00:00 88 02/21/18 23:30 89 18 97 Facial 25 02/21/18 21:20 88 19 98 Facial 25 02/21/18 21:15 89 130/80 02/21/18 20:00 25 02/21/18 20:00 98.4 89 16 130/80 (97) 96 02/21/18 20:00 94 02/21/18 20:00 Nasal Cannula 2.0 02/21/18 18:59 89 18 95 Facial 25 02/21/18 18:59 Nasal Cannula 2.0 28 02/21/18 18:58 96 Nasal Cannula 2.0 28 02/21/18 16:55 78 23 99 Facial 25 02/21/18 16:00 25 02/21/18 16:00 Nasal Cannula 2.0 02/21/18 16:00 86 02/21/18 15:42 97.9 79 23 128/69 (88) 95 Intake and Output 02/21/18 02/22/18 19:00 07:00 Intake Total 978.75 ml 737.5 ml Output Total 1700 ml 1400 ml Balance -721.25 ml -662.5 ml Intake Oral 800 ml 600 ml IV Total 178.75 ml 137.5 ml Output Urine Total 1700 ml 1400 ml # Bowel Movements 2 Microbiology Date/Time Source Procedure Growth Status 02/03/18 15:30 Blood Blood Culture - Final NO GROWTH AFTER 5 DAYS Complete 02/20/18 18:40 Stool Clostridium difficile Toxin Assay - Final Complete 02/20/18 12:50 Urine,Clean Catch Urine Culture - Preliminary NO GROWTH AFTER 24 HOURS Resulted 02/03/18 15:30 Rectal Mucosa - Final NO CARBAPENEM-RESISTANT ENTEROBACTERI... Complete Current Medications Medications (Trade) Dose Ordered Sig/Isabella Route PRN Reason Start Time Stop Time Status Last Admin Dose Admin Acetaminophen (Tylenol) 650 mg Q6H PRN ORAL Mild Pain/Temp > 100.5 02/19/18 10:30 03/05/18 16:29 02/22/18 04:39 Acyclovir (Zovirax) 800 mg EVERY 6 HOURS ORAL 02/20/18 12:30 03/22/18 12:29 02/22/18 12:23 Bisacodyl (Dulcolax) 10 mg DAILYPRN PRN RECTAL Constipation 02/19/18 10:30 03/14/18 10:29 Clonidine HCl (Catapres Tab) 0.1 mg Q4H PRN ORAL SBP above 150 02/19/18 10:30 03/21/18 10:29 Diltiazem HCl (Cardizem) 60 mg EVERY 8 HOURS ORAL 02/19/18 14:00 03/06/18 08:59 02/22/18 14:19 Diphenhydramine HCl (Benadryl) 25 mg Q6H PRN ORAL Itching 02/19/18 11:00 03/05/18 16:59 Fluoxetine HCl (PROzac) 20 mg DAILY ORAL 02/20/18 09:00 03/06/18 08:59 02/22/18 08:30 Furosemide (Lasix) 20 mg DAILY IV 02/21/18 09:00 03/23/18 08:59 02/22/18 08:31 Pantoprazole (Protonix) 40 mg DAILY IVP 02/20/18 09:00 03/20/18 08:59 02/22/18 08:30 Piperacillin Sod/ Tazobactam Sod 3.375 gm/Dextrose 110 ml @ 27.5 mls/hr EVERY 8 HOURS IVPB 02/19/18 14:00 02/23/18 13:59 02/22/18 14:19 Prednisone (predniSONE) 20 mg DAILY ORAL 02/21/18 09:00 03/23/18 08:59 02/22/18 08:31 Tiotropium [place] (Spiriva Inhaler) 1 puff DAILY INH 02/20/18 09:00 03/06/18 08:59 02/22/18 09:19 Vitamin A/Vitamin D (A & D Oint) 1 applic EVERY 12 HOURS TOPIC 02/19/18 21:00 03/21/18 20:59 02/22/18 08:31 Laboratory Tests 02/22/18 07:03: Arterial Blood pH 7.459H, Arterial Blood Partial Pressure CO2 60.5*H, Arterial Blood Partial Pressure O2 76.3, Arterial Blood HCO3 42.0*H, Arterial Blood Oxygen Saturation 95.7, Arterial Blood Base Excess 15.1*H, Tarun Test Positive Height (Feet): 5 Height (Inches): 6.00 Weight (Pounds): 211 Objective exam stable, urine blood-tinged renal u/s (02/19) noted LOIS ESPARZA Feb 22, 2018 15:09
--- NOTE | 2018-02-22 22:14 | Pulmonology Progress Note ---
Assessment/Plan Assessment/Plan IMPRESSION: Acute respiratory failure, COPD with acute exacerbation, respiratory acidosis and associated hypoxemia, cardiomegaly, pleural effusion and pulmonary edema, protein-calorie malnutrition. PLAN ok to floor seen earlier respiratory care reviewed IV antibiotics IV steroids taper- to prednisone supportive care as able monitor closely for now and try to wean daily guarded feeds position change and monitor for change skin monitoring DVT prophylaxis hope to avoid trach medications/laboratory data/nursing notes/ICU care reviewed in detail note reviewed and edited care discussed with RN and RT ICU time spent 40 minutes Critical Care - Subjective Interval Events: stable and off vent no distress on oxygen Condition: improving EKG Rhythm: Sinus Rhythm I&O: Intake and Output 02/18/18 02/19/18 19:00 07:00 Intake Total 880.0 ml 357.5 ml Output Total 1460 ml 600 ml Balance -580.0 ml -242.5 ml IV Total 220.0 ml 137.5 ml Tube Feeding 660 ml 220 ml Output Urine Total 1460 ml 600 ml # Bowel Movements 2 Critical Care - Objective CXR: minimal atelectasis ET-Tube: 7.5 ET Position: 24 Last 24 Hour Vital Signs Date Time Temp Pulse Resp B/P (MAP) Pulse Ox O2 Delivery O2 Flow Rate FiO2 02/19/18 19:20 Nasal Cannula 2.0 28 02/19/18 19:20 82 16 98 Nasal Cannula 2.0 28 02/19/18 19:20 98 Nasal Cannula 2.0 28 02/19/18 17:10 81 02/19/18 16:00 97.8 76 16 155/80 (105) 99 97.8 02/19/18 16:00 78 02/19/18 16:00 Nasal Cannula 2.0 Nasal Cannula 2.0 02/19/18 14:53 85 147/93 02/19/18 13:55 85 16 100 Nasal Cannula 2.0 28 02/19/18 13:45 84 16 98 Nasal Cannula 2.0 28 02/19/18 12:00 76 02/19/18 12:00 Nasal Cannula 2.0 Nasal Cannula 2.0 02/19/18 12:00 97.5 76 16 147/93 (111) 100 97.5 02/19/18 10:20 02/19/18 09:00 80 15 144/78 (100) 100 02/19/18 08:00 77 21 155/80 (105) 99 10/23/18 08:00 85 02/19/18 08:00 Nasal Cannula 2.0 Nasal Cannula 2.0 02/19/18 07:48 76 16 100 Nasal Cannula 2.0 28 02/19/18 07:46 Nasal Cannula 3.0 32 02/19/18 07:39 87 16 98 Nasal Cannula 2.0 28 02/19/18 07:38 98 Nasal Cannula 3.0 32 02/19/18 07:00 98.4 78 22 156/88 (110) 99 98.4 02/19/18 06:12 80 164/83 02/19/18 06:00 79 22 164/83 (110) 99 02/19/18 05:00 79 22 161/91 (114) 99 02/19/18 04:00 Nasal Cannula 2.0 Nasal Cannula 2.0 02/19/18 04:00 78 22 166/84 (111) 99 02/19/18 04:00 80 02/19/18 03:00 80 22 166/82 (110) 99 02/19/18 02:00 82 22 146/90 (108) 99 02/19/18 01:00 98.2 81 22 148/69 (95) 99 98.2 02/19/18 00:58 73 17 100 Nasal Cannula 2.0 28 02/19/18 00:57 28 02/19/18 00:50 76 17 99 Nasal Cannula 2.0 28 02/19/18 00:00 85 02/19/18 00:00 Nasal Cannula 2.0 Nasal Cannula 2.0 02/19/18 00:00 76 22 150/79 (102) 99 02/18/18 23:00 91 22 146/93 (110) 99 02/18/18 22:00 88 22 130/65 (86) 99 02/18/18 21:55 91 140/80 02/18/18 21:00 98.0 93 22 140/80 (100) 99 98.0 02/18/18 20:00 83 02/18/18 20:00 90 22 124/71 (88) 99 02/18/18 20:00 Nasal Cannula 2.0 Nasal Cannula 2.0 Labs: Labs Test 02/17/18 18:17 02/18/18 04:00 02/18/18 14:11 02/19/18 04:54 Urine Color Red Urine Appearance Turbid Urine pH 7 (4.5-8.0) Urine Specific [place] 1.010 (1.005-1.035) Urine Protein 3+ (NEGATIVE) Urine Glucose (UA) Negative (NEGATIVE) Urine Ketones Negative (NEGATIVE) Urine Blood 5+ (NEGATIVE) Urine Nitrite Negative (NEGATIVE) Urine Bilirubin Negative (NEGATIVE) Urine Urobilinogen Normal MG/DL (0.0-1.0) Urine Leukocyte Esterase 3+ (NEGATIVE) Urine RBC Tntc /HPF (0 - 2) Urine WBC 15-20 /HPF (0 - 2) Urine Squamous Epithelial Cells Few /LPF (NONE/OCC) Urine Bacteria Few /HPF (NONE) White Blood Count 11.1 K/UL (4.8-10.8) 10.0 K/UL (4.8-10.8) Red Blood Count 5.20 M/UL (4.20-5.40) 5.32 M/UL (4.20-5.40) Hemoglobin 14.8 G/DL (12.0-16.0) 14.8 G/DL (12.0-16.0) Hematocrit 46.1 % (37.0-47.0) 47.8 % (37.0-47.0) Mean Corpuscular Volume 89 FL (80-99) 90 FL (80-99) Mean Corpuscular Hemoglobin 28.4 PG (27.0-31.0) 27.8 PG (27.0-31.0) Mean Corpuscular Hemoglobin Concent 32.0 G/DL (32.0-36.0) 30.9 G/DL (32.0-36.0) Red Cell Distribution Width 14.3 % (11.6-14.8) 14.1 % (11.6-14.8) Platelet Count 141 K/UL (150-450) 137 K/UL (150-450) Mean Platelet Volume 6.8 FL (6.5-10.1) 7.3 FL (6.5-10.1) Neutrophils (%) (Auto) % (45.0-75.0) % (45.0-75.0) Lymphocytes (%) (Auto) % (20.0-45.0) % (20.0-45.0) Monocytes (%) (Auto) % (1.0-10.0) % (1.0-10.0) Eosinophils (%) (Auto) % (0.0-3.0) % (0.0-3.0) Basophils (%) (Auto) % (0.0-2.0) % (0.0-2.0) Differential Total Cells Counted 100 100 Neutrophils % (Manual) 91 % (45-75) 88 % (45-75) Lymphocytes % (Manual) 3 % (20-45) 5 % (20-45) Monocytes % (Manual) 6 % (1-10) 7 % (1-10) Eosinophils % (Manual) 0 % (0-3) 0 % (0-3) Basophils % (Manual) 0 % (0-2) 0 % (0-2) Band Neutrophils 0 % (0-8) 0 % (0-8) Platelet Estimate Decreased Decreased Platelet Morphology Normal Normal Red Blood Cell Morphology Normal Normal Sodium Level 140 MMOL/L (136-145) 142 MMOL/L (136-145) Potassium Level 3.8 MMOL/L (3.5-5.1) 3.8 MMOL/L (3.5-5.1) Chloride Level 104 MMOL/L (98-107) 103 MMOL/L (98-107) Carbon Dioxide Level 31 MMOL/L (21-32) 34 MMOL/L (21-32) Anion Gap 5 mmol/L (5-15) 5 mmol/L (5-15) Blood Urea Nitrogen 17 mg/dL (7-18) 19 mg/dL (7-18) Creatinine 0.6 MG/DL (0.55-1.30) 0.5 MG/DL (0.55-1.30) Estimat Glomerular Filtration Rate mL/min (>60) mL/min (>60) Glucose Level 125 MG/DL (74-106) 121 MG/DL (74-106) Calcium Level 8.9 MG/DL (8.5-10.1) 9.2 MG/DL (8.5-10.1) Total Bilirubin 0.3 MG/DL (0.2-1.0) 0.4 MG/DL (0.2-1.0) Aspartate Amino Transf (AST/SGOT) 8 U/L (15-37) 5 U/L (15-37) Alanine Aminotransferase (ALT/SGPT) 15 U/L (12-78) 17 U/L (12-78) Alkaline Phosphatase 82 U/L (46-116) 76 U/L (46-116) Total Protein 5.9 G/DL (6.4-8.2) 6.1 G/DL (6.4-8.2) Albumin 2.3 G/DL (3.4-5.0) 2.5 G/DL (3.4-5.0) Globulin 3.6 g/dL 3.6 g/dL Albumin/Globulin Ratio 0.6 (1.0-2.7) 0.7 (1.0-2.7) Arterial Blood pH 7.450 (7.350-7.450) Arterial Blood Partial Pressure CO2 48.4 mmHg (35.0-45.0) Arterial Blood Partial Pressure O2 86.4 mmHg (75.0-100.0) Arterial Blood HCO3 33.3 mmol/L (22.0-26.0) Arterial Blood Oxygen Saturation 97.0 % (95-100) Arterial Blood Base Excess 7.9 (-2-2) Tarun Test Positive Phosphorus Level 2.3 MG/DL (2.5-4.9) Magnesium Level 1.9 MG/DL (1.8-2.4) Pro-B-Type Natriuretic Peptide 449 pg/mL (0-125) Objective: GENERAL: sedated/withdrawn; off vent; on NC NECK: Supple. No adenopathy. No jugular venous distention. orally intubated LUNGS: Moderate breath sounds. no rhonchi. No wheezes. stable CARDIAC: S1 and S2. Regular rhythm without murmurs, rubs, or gallops. ABDOMEN: Soft, nontender, nondistended. no HSM; feeding tube in place EXTREMITIES: No cyanosis, clubbing; trace edema. NEUROLOGIC: Grossly nonfocal, sedated reviewed and examined Micro: Microbiology Date/Time Source Procedure Growth Status 02/17/18 18:17 Indwelling Cath Urine Culture - Preliminary NO GROWTH Resulted Subjective ROS Limited/Unobtainable: No Allergies: Coded Allergies: No Known Allergies (Unverified , 12/10/15) Objective Last 24 Hour Vital Signs Date Time Temp Pulse Resp B/P (MAP) Pulse Ox O2 Delivery O2 Flow Rate FiO2 02/22/18 21:26 92 21 98 Full Face 25 02/22/18 21:24 93 120/67 02/22/18 20:00 Bi-pap 02/22/18 20:00 100 02/22/18 20:00 98.0 93 18 120/67 (84) 97 02/22/18 20:00 25 02/22/18 19:25 95 20 97 Full Face 25 02/22/18 19:24 Bi-pap 25 02/22/18 19:23 98 Bi-pap 25 02/22/18 17:03 91 17 98 Full Face 25 02/22/18 16:00 Bi-pap 02/22/18 16:00 97.7 99 17 121/74 (90) 97 02/22/18 16:00 93 02/22/18 15:24 74 17 99 Full Face 25 02/22/18 14:19 88 119/58 02/22/18 13:33 25 02/22/18 12:30 2.0 02/22/18 12:00 Bi-pap 02/22/18 12:00 25 02/22/18 12:00 97.3 88 19 119/58 (78) 97 02/22/18 12:00 85 02/22/18 11:13 81 17 98 Full Face 25 02/22/18 10:18 80 121/72 (88) 02/22/18 10:00 25 02/22/18 09:22 84 18 98 Nasal Cannula 2.0 28 02/22/18 09:19 84 18 98 Nasal Cannula 2.0 28 02/22/18 09:00 Bi-pap 02/22/18 08:00 2.0 02/22/18 08:00 97.7 84 16 137/102 (114) 99 02/22/18 07:47 77 02/22/18 06:54 98 Bi-pap 25 02/22/18 06:54 Bi-pap 25 02/22/18 06:54 79 17 99 Full Face 25 02/22/18 05:40 82 163/88 02/22/18 05:20 82 16 98 Full Face 25 02/22/18 04:00 98.8 80 16 163/88 (113) 97 02/22/18 04:00 25 02/22/18 04:00 81 02/22/18 04:00 Bi-pap 02/22/18 03:30 80 17 97 Full Face 25 02/22/18 01:28 84 17 98 Full Face 25 02/22/18 00:00 25 02/22/18 00:00 98.5 95 16 146/81 (102) 98 02/22/18 00:00 Bi-pap 02/22/18 00:00 88 02/21/18 23:30 89 18 97 Facial 25 Intake and Output 02/21/18 02/22/18 19:00 07:00 Intake Total 978.75 ml 737.5 ml Output Total 1700 ml 1400 ml Balance -721.25 ml -662.5 ml Intake Oral 800 ml 600 ml IV Total 178.75 ml 137.5 ml Output Urine Total 1700 ml 1400 ml # Bowel Movements 2 Microbiology Date/Time Source Procedure Growth Status 02/20/18 18:40 Stool Clostridium difficile Toxin Assay - Final Complete 02/20/18 12:50 Urine,Clean Catch Urine Culture - Preliminary NO GROWTH AFTER 24 HOURS Resulted Laboratory Tests 02/22/18 07:03: Arterial Blood pH 7.459H, Arterial Blood Partial Pressure CO2 60.5*H, Arterial Blood Partial Pressure O2 76.3, Arterial Blood HCO3 42.0*H, Arterial Blood Oxygen Saturation 95.7, Arterial Blood Base Excess 15.1*H, Tarun Test Positive Current Medications Medications (Trade) Dose Ordered Sig/Isabella Route PRN Reason Start Time Stop Time Status Last Admin Dose Admin Acetaminophen (Tylenol) 650 mg Q6H PRN ORAL Mild Pain/Temp > 100.5 02/19/18 10:30 03/05/18 16:29 02/22/18 04:39 Acyclovir (Zovirax) 800 mg EVERY 6 HOURS ORAL 02/20/18 12:30 03/22/18 12:29 02/22/18 18:16 Bisacodyl (Dulcolax) 10 mg DAILYPRN PRN RECTAL Constipation 02/19/18 10:30 03/14/18 10:29 Clonidine HCl (Catapres Tab) 0.1 mg Q4H PRN ORAL SBP above 150 02/19/18 10:30 03/21/18 10:29 Diltiazem HCl (Cardizem) 60 mg EVERY 8 HOURS ORAL 02/19/18 14:00 03/06/18 08:59 02/22/18 21:24 Diphenhydramine HCl (Benadryl) 25 mg Q6H PRN ORAL Itching 02/19/18 11:00 03/05/18 16:59 Fluoxetine HCl (PROzac) 20 mg DAILY ORAL 02/20/18 09:00 03/06/18 08:59 02/22/18 08:30 Furosemide (Lasix) 20 mg DAILY IV 02/21/18 09:00 03/23/18 08:59 02/22/18 08:31 Pantoprazole (Protonix) 40 mg DAILY IVP 02/20/18 09:00 03/20/18 08:59 02/22/18 08:30 Piperacillin Sod/ Tazobactam Sod 3.375 gm/Dextrose 110 ml @ 27.5 mls/hr EVERY 8 HOURS IVPB 02/19/18 14:00 02/23/18 13:59 02/22/18 21:24 Prednisone (predniSONE) 20 mg DAILY ORAL 02/21/18 09:00 03/23/18 08:59 02/22/18 08:31 Tiotropium [place] (Spiriva Inhaler) 1 puff DAILY INH 02/20/18 09:00 03/06/18 08:59 02/22/18 09:19 Vitamin A/Vitamin D (A & D Oint) 1 applic EVERY 12 HOURS TOPIC 02/19/18 21:00 03/21/18 20:59 02/22/18 21:24 Ashvin Serrano MD Feb 22, 2018 22:14
[2018-02-23] VITALS: BP 158/88
--- NOTE | 2018-02-23 00:45 | Progress Note ---
DATE: 02/21/2018 CARDIOLOGY PROGRESS NOTE Late entry for 02/21/2018. SUBJECTIVE: The patient is on BiPAP support intermittently. OBJECTIVE: VITAL SIGNS: Blood pressure 114/65, pulse 71, and respirations 22. LUNGS: Diminished breath sounds. No wheezing. HEART: Regular rhythm and rate. Normal S1, S2. ABDOMEN: Soft. EXTREMITIES: No edema. LABORATORY DATA: White count 8.4 and hemoglobin 14. Sodium 140, potassium 3.6, bicarb 38, BUN 14, and creatinine 0.6. ABG, pH 7.40, pCO2 68, pO2 78. IMPRESSION: 1. Chronic obstructive pulmonary disease exacerbation. 2. Status post respiratory failure. 3. Acute on chronic respiratory acidosis, recovered, now with chronic respiratory acidosis. 4. Acute diastolic congestive heart failure. 5. Acute myocardial ischemia, resolved. 6. Protein-calorie malnutrition. PLAN: 1. Steroid taper. 2. Bronchodilators. 3. Weaning efforts. 4. Periodic diuresis. 5. DVT prophylaxis. 6. Remains high risk. 7. Monitor clinical parameters and acid base status. Ashvin Wu M.D. DR: COOPER JOB#: [id number] CC:
--- NOTE | 2018-02-23 01:00 | Progress Note ---
DATE: 02/22/2018 CARDIOLOGY PROGRESS NOTE SUBJECTIVE: The patient's condition remains tenuous. She remains on BiPAP support. ABGs have been stabilizing. She is not in respiratory distress. OBJECTIVE: VITAL SIGNS: Blood pressure 158/88, pulse 83, and respirations 18. Afebrile. LUNGS: Diminished breath sounds. No wheezing. HEART: Regular rhythm and rate. Normal S1, S2. ABDOMEN: Soft. EXTREMITIES: No edema. LABORATORY DATA: ABG, pH 7.46, pCO2 61, and pO2 76. IMPRESSION: Slow progress. PLAN: 1. Recheck chest x-ray. 2. Monitor acid-base parameters. 3. Continue steroid taper. 4. Inhaled bronchodilators. 5. Periodic diuresis. 6. Cardiac monitoring. 7. DVT prophylaxis. 8. Trend natriuretic peptide assay. Ashvin Wu M.D. DR: COOPER JOB#: [id number] CC:
[2018-02-23 04:00] VITALS: BP 134/73
[2018-02-23] MEDS: Piperacillin/Tazobactam 3.375 GM in D5W 110 ML IVPB SCH ×3 (05:04→22:07)
[2018-02-23] MEDS: dilTIAZem HCl 60mg tab ORAL SCH ×3 (05:05→22:07)
[2018-02-23 05:21] LABS: BASOPHILS % (AUTO) 0.4 % (0.0-2.0); EOSINOPHILS % (AUTO) 2.4 % (0.0-3.0); HEMATOCRIT 42.7 % (37.0-47.0); HEMOGLOBIN 13.9 G/DL (12.0-16.0); LYMPHOCYTES % (AUTO) 20.3 % (20.0-45.0); MEAN CORPUSCULAR VOLUME 91 FL (80-99); MONOCYTES % (AUTO) 7.2 % (1.0-10.0); NEUTROPHILS % (AUTO) 69.7 % (45.0-75.0); PLATELET COUNT 154 K/UL (150-450); RED CELL DISTRIBUTION WIDTH 14.1 % (11.6-14.8); WHITE BLOOD COUNT 9.4 K/UL (4.8-10.8)
[2018-02-23 05:46] LABS: ALANINE AMINOTRANSFERASE 15 U/L (12-78); ALBUMIN 2.3 G/DL (3.4-5.0); ALBUMIN/GLOBULIN RATIO 0.7 (1.0-2.7); ALKALINE PHOSPHATASE 73 U/L (46-116); ANION GAP 2 mmol/L (5-15); ASPARTATE AMINO TRANSFERASE 8 U/L (15-37); BILIRUBIN,TOTAL 0.4 MG/DL (0.2-1.0); BLOOD UREA NITROGEN 13 mg/dL (7-18); CALCIUM 8.9 MG/DL (8.5-10.1); CARBON DIOXIDE 38 MMOL/L (21-32); CHLORIDE 102 MMOL/L (98-107); CREATININE 0.6 MG/DL (0.55-1.30); POTASSIUM 3.6 MMOL/L (3.5-5.1); SODIUM 142 MMOL/L (136-145)
[2018-02-23 07:45] VITALS: BP 127/73
[2018-02-23] MEDS: Pantoprazole Inj IVP SCH (08:38)
[2018-02-23] MEDS: Vitamin A&D Oint 2oz Tube TOPIC SCH ×2 (08:39→20:47)
--- NOTE | 2018-02-23 08:44 | Urology Progress Note ---
Assessment/Plan Assessment/Plan 1. Gross hematuria. 2. Urinary retention. 3. Probable neurogenic bladder. 4. Pyuria. 5. Proteinuria. 6. Possible hemorrhagic cystitis. monitor clinically arellano hand irrigated and do PRN no active bleeding cont with abx as ordered off anticoagulation monitor h/h cysto later f/u on urine cx Subjective Allergies: Coded Allergies: No Known Allergies (Unverified , 12/10/15) Subjective all noted, comfortable Objective Last 24 Hour Vital Signs Date Time Temp Pulse Resp B/P (MAP) Pulse Ox O2 Delivery O2 Flow Rate FiO2 02/23/18 08:00 Bi-pap 02/23/18 08:00 25 02/23/18 07:45 98.0 83 19 127/73 (91) 97 02/23/18 05:05 134 73/81 02/23/18 05:02 88 19 99 Full Face 25 02/23/18 04:00 25 02/23/18 04:00 Bi-pap 02/23/18 04:00 98.2 81 20 134/73 (93) 95 02/23/18 04:00 87 02/23/18 01:08 83 17 98 Full Face 25 02/23/18 00:00 Bi-pap 02/23/18 00:00 25 02/23/18 00:00 97.9 83 18 158/88 (111) 97 02/23/18 00:00 85 02/22/18 23:06 88 20 99 Full Face 25 02/22/18 21:26 92 21 98 Full Face 25 02/22/18 21:24 93 120/67 02/22/18 20:00 Bi-pap 02/22/18 20:00 100 02/22/18 20:00 98.0 93 18 120/67 (84) 97 02/22/18 20:00 25 02/22/18 19:25 95 20 97 Full Face 25 02/22/18 19:24 Bi-pap 25 02/22/18 19:23 98 Bi-pap 25 02/22/18 17:03 91 17 98 Full Face 25 02/22/18 16:00 Bi-pap 02/22/18 16:00 97.7 99 17 121/74 (90) 97 02/22/18 16:00 93 02/22/18 15:24 74 17 99 Full Face 25 02/22/18 14:19 88 119/58 02/22/18 13:33 25 02/22/18 12:30 2.0 02/22/18 12:00 Bi-pap 02/22/18 12:00 25 02/22/18 12:00 97.3 88 19 119/58 (78) 97 02/22/18 12:00 85 02/22/18 11:13 81 17 98 Full Face 25 02/22/18 10:18 80 121/72 (88) 02/22/18 10:00 25 02/22/18 09:22 84 18 98 Nasal Cannula 2.0 28 02/22/18 09:19 84 18 98 Nasal Cannula 2.0 28 02/22/18 09:00 Bi-pap Intake and Output 02/22/18 02/23/18 19:00 07:00 Intake Total 1472.5 ml 460.0 ml Output Total 1800 ml 1000 ml Balance -327.5 ml -540.0 ml Intake Oral 1280 ml 350 ml IV Total 192.5 ml 110.0 ml Output Urine Total 1800 ml 1000 ml # Bowel Movements 4 Microbiology Date/Time Source Procedure Growth Status 02/03/18 15:30 Blood Blood Culture - Final NO GROWTH AFTER 5 DAYS Complete 02/20/18 18:40 Stool Clostridium difficile Toxin Assay - Final Complete 02/20/18 12:50 Urine,Clean Catch Urine Culture - Preliminary NO GROWTH AFTER 24 HOURS Resulted 02/03/18 15:30 Rectal Mucosa - Final NO CARBAPENEM-RESISTANT ENTEROBACTERI... Complete Current Medications Medications (Trade) Dose Ordered Sig/Isabella Route PRN Reason Start Time Stop Time Status Last Admin Dose Admin Acetaminophen (Tylenol) 650 mg Q6H PRN ORAL Mild Pain/Temp > 100.5 02/19/18 10:30 03/05/18 16:29 02/22/18 04:39 Acyclovir (Zovirax) 800 mg EVERY 6 HOURS ORAL 02/20/18 12:30 03/22/18 12:29 02/23/18 05:05 Bisacodyl (Dulcolax) 10 mg DAILYPRN PRN RECTAL Constipation 02/19/18 10:30 03/14/18 10:29 Clonidine HCl (Catapres Tab) 0.1 mg Q4H PRN ORAL SBP above 150 02/19/18 10:30 03/21/18 10:29 Diltiazem HCl (Cardizem) 60 mg EVERY 8 HOURS ORAL 02/19/18 14:00 03/06/18 08:59 02/23/18 05:05 Diphenhydramine HCl (Benadryl) 25 mg Q6H PRN ORAL Itching 02/19/18 11:00 03/05/18 16:59 Fluoxetine HCl (PROzac) 20 mg DAILY ORAL 02/20/18 09:00 03/06/18 08:59 02/23/18 08:39 Furosemide (Lasix) 20 mg DAILY IV 02/21/18 09:00 03/23/18 08:59 02/23/18 08:39 Magnesium Sulfate 100 ml @ 100 mls/hr Q1H IVPB 02/23/18 08:45 02/23/18 10:44 Pantoprazole (Protonix) 40 mg DAILY IVP 02/20/18 09:00 03/20/18 08:59 02/23/18 08:38 Piperacillin Sod/ Tazobactam Sod 3.375 gm/Dextrose 110 ml @ 27.5 mls/hr EVERY 8 HOURS IVPB 02/19/18 14:00 02/23/18 13:59 02/23/18 05:04 Prednisone (predniSONE) 20 mg DAILY ORAL 02/21/18 09:00 03/23/18 08:59 02/23/18 08:39 Tiotropium [place] (Spiriva Inhaler) 1 puff DAILY INH 02/20/18 09:00 03/06/18 08:59 02/22/18 09:19 Vitamin A/Vitamin D (A & D Oint) 1 applic EVERY 12 HOURS TOPIC 02/19/18 21:00 03/21/18 20:59 02/23/18 08:39 Laboratory Tests 02/23/18 03:51: White Blood Count 9.4, Red Blood Count 4.70, Hemoglobin 13.9, Hematocrit 42.7, Mean Corpuscular Volume 91, Mean Corpuscular Hemoglobin 29.5, Mean Corpuscular Hemoglobin Concent 32.5, Red Cell Distribution Width 14.1, Platelet Count 154, Mean Platelet Volume 7.1, Neutrophils (%) (Auto) 69.7, Lymphocytes (%) (Auto) 20.3, Monocytes (%) (Auto) 7.2, Eosinophils (%) (Auto) 2.4, Basophils (%) (Auto ) 0.4, Sodium Level 142, Potassium Level 3.6, Chloride Level 102, Carbon Dioxide Level 38H, Anion Gap 2L, Blood Urea Nitrogen 13, Creatinine 0.6, Estimat Glomerular Filtration Rate , Glucose Level 90, Calcium Level 8.9, Magnesium Level 1.7L, Total Bilirubin 0.4, Aspartate Amino Transf (AST/SGOT) 8L , Alanine Aminotransferase (ALT/SGPT) 15, Alkaline Phosphatase 73, Pro-B-Type Natriuretic Peptide 336H, Total Protein 5.7L, Albumin 2.3L, Globulin 3.4, Albumin/Globulin Ratio 0.7L Height (Feet): 5 Height (Inches): 6.00 Weight (Pounds): 208 Objective exam stable, urine blood-tinged renal u/s (02/19) noted LOIS ESPARZA Feb 23, 2018 08:44
--- NOTE | 2018-02-23 09:00 | Diagnostic Imaging Report ---
EXAM: XR Chest, 1 View CLINICAL HISTORY: ABN CHST TECHNIQUE: Frontal view of the chest. COMPARISON: Chest x-ray dated 02/18/18 FINDINGS: Lungs: Subsegmental atelectasis versus infiltrate in the left lung base/retrocardiac region, stable. Remainder of the lungs appear clear. Pleural space: Blunting of the left breast phrenic angle suggesting a small left pleural effusion. Heart: Unremarkable. No cardiomegaly. Mediastinum: Unremarkable. Bones/joints: Unremarkable. Tubes, lines and devices: EKG leads overlie the thorax. IMPRESSION: 1. Subsegmental atelectasis versus infiltrate in the left lung base/retrocardiac region, stable. 2. Blunting of the left breast phrenic angle suggesting a small left pleural effusion.
--- NOTE | 2018-02-23 09:43 | General Progress Note ---
Assessment/Plan Problem List: (1) COPD exacerbation ICD Codes: J44.1 - Chronic obstructive pulmonary disease with (acute) exacerbation SNOMED: 705891746 (2) HTN (hypertension) ICD Codes: I10 - Essential (primary) hypertension SNOMED: 83925737 (3) Hypoxia ICD Codes: R09.02 - Hypoxemia SNOMED: 626203565 (4) Elevated troponin ICD Codes: R74.8 - Abnormal levels of other serum enzymes SNOMED: 839232923, 327779073, 644774912 (5) Renal insufficiency ICD Codes: N28.9 - Disorder of kidney and ureter, unspecified SNOMED: 850887226, 597141392 (6) Respiratory failure ICD Codes: J96.90 - Respiratory failure, unspecified, unspecified whether with hypoxia or hypercapnia SNOMED: 568717790 Qualifiers: Qualified Codes: J96.02 - Acute respiratory failure with hypercapnia (7) Right lower lobe pneumonia ICD Codes: J18.1 - Lobar pneumonia, unspecified organism SNOMED: 990912748 Qualifiers: Qualified Codes: J18.1 - Lobar pneumonia, unspecified organism Status: stable, progressing Assessment/Plan resp rx o2 iv abx per id monitor cxr po steroids bipap per pulm keep dry ID appreciated guarded dc planning when cleared by pulm Subjective ROS Limited/Unobtainable: No Constitutional: Reports: weakness HEENT: Reports: no symptoms Cardiovascular: Reports: no symptoms Respiratory: Reports: no symptoms Gastrointestinal/Abdominal: Reports: no symptoms Genitourinary: Reports: no symptoms Neurologic/Psychiatric: Reports: no symptoms Endocrine: Reports: no symptoms Hematologic/Lymphatic: Reports: no symptoms Allergies: Coded Allergies: No Known Allergies (Unverified , 12/10/15) All Systems: reviewed and negative except above Subjective no complaints. off bipap. denies sob. no overnight events. Objective Last 24 Hour Vital Signs Date Time Temp Pulse Resp B/P (MAP) Pulse Ox O2 Delivery O2 Flow Rate FiO2 02/23/18 09:33 83 16 96 Nasal Cannula 2.0 28 02/23/18 09:33 83 16 96 Nasal Cannula 2.0 28 02/23/18 08:46 82 02/23/18 08:00 Bi-pap 02/23/18 08:00 25 02/23/18 07:45 98.0 83 19 127/73 (91) 97 02/23/18 05:05 134 73/81 02/23/18 05:02 88 19 99 Full Face 25 02/23/18 04:00 25 02/23/18 04:00 Bi-pap 02/23/18 04:00 98.2 81 20 134/73 (93) 95 02/23/18 04:00 87 02/23/18 01:08 83 17 98 Full Face 25 02/23/18 00:00 Bi-pap 02/23/18 00:00 25 02/23/18 00:00 97.9 83 18 158/88 (111) 97 02/23/18 00:00 85 02/22/18 23:06 88 20 99 Full Face 25 02/22/18 21:26 92 21 98 Full Face 25 02/22/18 21:24 93 120/67 02/22/18 20:00 Bi-pap 02/22/18 20:00 100 02/22/18 20:00 98.0 93 18 120/67 (84) 97 02/22/18 20:00 25 02/22/18 19:25 95 20 97 Full Face 25 02/22/18 19:24 Bi-pap 25 02/22/18 19:23 98 Bi-pap 25 02/22/18 17:03 91 17 98 Full Face 25 02/22/18 16:00 Bi-pap 02/22/18 16:00 97.7 99 17 121/74 (90) 97 02/22/18 16:00 93 02/22/18 15:24 74 17 99 Full Face 25 02/22/18 14:19 88 119/58 02/22/18 13:33 25 02/22/18 12:30 2.0 02/22/18 12:00 Bi-pap 02/22/18 12:00 25 02/22/18 12:00 97.3 88 19 119/58 (78) 97 02/22/18 12:00 85 02/22/18 11:13 81 17 98 Full Face 25 02/22/18 10:18 80 121/72 (88) 02/22/18 10:00 25 Intake and Output 02/22/18 02/23/18 19:00 07:00 Intake Total 1472.5 ml 460.0 ml Output Total 1800 ml 1000 ml Balance -327.5 ml -540.0 ml Intake Oral 1280 ml 350 ml IV Total 192.5 ml 110.0 ml Output Urine Total 1800 ml 1000 ml # Bowel Movements 4 Laboratory Tests 02/23/18 03:51: White Blood Count 9.4, Red Blood Count 4.70, Hemoglobin 13.9, Hematocrit 42.7, Mean Corpuscular Volume 91, Mean Corpuscular Hemoglobin 29.5, Mean Corpuscular Hemoglobin Concent 32.5, Red Cell Distribution Width 14.1, Platelet Count 154, Mean Platelet Volume 7.1, Neutrophils (%) (Auto) 69.7, Lymphocytes (%) (Auto) 20.3, Monocytes (%) (Auto) 7.2, Eosinophils (%) (Auto) 2.4, Basophils (%) (Auto ) 0.4, Sodium Level 142, Potassium Level 3.6, Chloride Level 102, Carbon Dioxide Level 38H, Anion Gap 2L, Blood Urea Nitrogen 13, Creatinine 0.6, Estimat Glomerular Filtration Rate , Glucose Level 90, Calcium Level 8.9, Magnesium Level 1.7L, Total Bilirubin 0.4, Aspartate Amino Transf (AST/SGOT) 8L , Alanine Aminotransferase (ALT/SGPT) 15, Alkaline Phosphatase 73, Pro-B-Type Natriuretic Peptide 336H, Total Protein 5.7L, Albumin 2.3L, Globulin 3.4, Albumin/Globulin Ratio 0.7L 02/23/18 09:05: Arterial Blood pH 7.392, Arterial Blood Partial Pressure CO2 61.2*H, Arterial Blood Partial Pressure O2 115.8H, Arterial Blood HCO3 36.4H, Arterial Blood Oxygen Saturation 98.4, Arterial Blood Base Excess 9.1*H, Tarun Test Positive Height (Feet): 5 Height (Inches): 6.00 Weight (Pounds): 208 Neck: supple Objective General Appearance: WD/WN, resting. on nasal cannula, opens eyes. alert. follows commands Neck: supple Cardiovascular: regular rhythm Respiratory/Chest: lungs mostly clear, few rhonchi Abdomen: normal bowel sounds, non tender, soft, no organomegaly Edema: no edema noted Arm (L), no edema noted Arm (R), no edema noted Leg (L), no edema noted Leg (R), no edema noted Pedal (L), no edema noted Pedal (R), no edema noted Generalized Manan Byrd MD Feb 23, 2018 09:43
[2018-02-23] MEDS ORDERED: NS 275ml ONE (10:41)
[2018-02-23 12:00] VITALS: BP 113/61
[2018-02-23 15:52] VITALS: BP 107/60
--- NOTE | 2018-02-23 17:54 | Pulmonology Progress Note ---
Assessment/Plan Assessment/Plan PULMONARY PROGRESS NOTE IMPRESSION: Acute respiratory failure, COPD with acute exacerbation, respiratory acidosis and associated hypoxemia, cardiomegaly, pleural effusion and pulmonary edema, protein-calorie malnutrition. CXR: 1. Subsegmental atelectasis versus infiltrate in the left lung base/retrocardiac region, stable. 2. Blunting of the left breast phrenic angle suggesting a small left pleural effusion. PLAN seen earlier respiratory care reviewed IV antibiotics IV steroids taper- to prednisone supportive care as able monitor closely for now and try to wean daily guarded feeds position change and monitor for change skin monitoring DVT prophylaxis hope to avoid trach medications/laboratory data/nursing notes/ICU care reviewed in detail note reviewed and edited care discussed with RN and RT ICU time spent 40 minutes Critical Care - Subjective Interval Events: stable and off vent no distress on oxygen Condition: improving EKG Rhythm: Sinus Rhythm I&O: Intake and Output 02/18/18 02/19/18 19:00 07:00 Intake Total 880.0 ml 357.5 ml Output Total 1460 ml 600 ml Balance -580.0 ml -242.5 ml IV Total 220.0 ml 137.5 ml Tube Feeding 660 ml 220 ml Output Urine Total 1460 ml 600 ml # Bowel Movements 2 Critical Care - Objective CXR: minimal atelectasis ET-Tube: 7.5 ET Position: 24 Last 24 Hour Vital Signs Date Time Temp Pulse Resp B/P (MAP) Pulse Ox O2 Delivery O2 Flow Rate FiO2 02/19/18 19:20 Nasal Cannula 2.0 28 02/19/18 19:20 82 16 98 Nasal Cannula 2.0 28 02/19/18 19:20 98 Nasal Cannula 2.0 28 02/19/18 17:10 81 02/19/18 16:00 97.8 76 16 155/80 (105) 99 97.8 02/19/18 16:00 78 02/19/18 16:00 Nasal Cannula 2.0 Nasal Cannula 2.0 02/19/18 14:53 85 147/93 02/19/18 13:55 85 16 100 Nasal Cannula 2.0 28 02/19/18 13:45 84 16 98 Nasal Cannula 2.0 28 02/19/18 12:00 76 02/19/18 12:00 Nasal Cannula 2.0 Nasal Cannula 2.0 02/19/18 12:00 97.5 76 16 147/93 (111) 100 97.5 02/19/18 10:20 02/19/18 09:00 80 15 144/78 (100) 100 02/19/18 08:00 77 21 155/80 (105) 99 02/19/18 08:00 85 02/19/18 08:00 Nasal Cannula 2.0 Nasal Cannula 2.0 02/19/18 07:48 76 16 100 Nasal Cannula 2.0 28 02/19/18 07:46 Nasal Cannula 3.0 32 02/19/18 07:39 87 16 98 Nasal Cannula 2.0 28 02/19/18 07:38 98 Nasal Cannula 3.0 32 02/19/18 07:00 98.4 78 22 156/88 (110) 99 98.4 02/19/18 06:12 80 164/83 02/19/18 06:00 79 22 164/83 (110) 99 02/19/18 05:00 79 22 161/91 (114) 99 02/19/18 04:00 Nasal Cannula 2.0 Nasal Cannula 2.0 02/19/18 04:00 78 22 166/84 (111) 99 02/19/18 04:00 80 02/19/18 03:00 80 22 166/82 (110) 99 02/19/18 02:00 82 22 146/90 (108) 99 02/19/18 01:00 98.2 81 22 148/69 (95) 99 98.2 02/19/18 00:58 73 17 100 Nasal Cannula 2.0 28 02/19/18 00:57 28 02/19/18 00:50 76 17 99 Nasal Cannula 2.0 28 02/19/18 00:00 85 02/19/18 00:00 Nasal Cannula 2.0 Nasal Cannula 2.0 02/19/18 00:00 76 22 150/79 (102) 99 02/18/18 23:00 91 22 146/93 (110) 99 02/18/18 22:00 88 22 130/65 (86) 99 02/18/18 21:55 91 140/80 02/18/18 21:00 98.0 93 22 140/80 (100) 99 98.0 02/18/18 20:00 83 02/18/18 20:00 90 22 124/71 (88) 99 02/18/18 20:00 Nasal Cannula 2.0 Nasal Cannula 2.0 Labs: Labs Test 02/17/18 18:17 02/18/18 04:00 02/18/18 14:11 02/19/18 04:54 Urine Color Red Urine Appearance Turbid Urine pH 7 (4.5-8.0) Urine Specific [place] 1.010 (1.005-1.035) Urine Protein 3+ (NEGATIVE) Urine Glucose (UA) Negative (NEGATIVE) Urine Ketones Negative (NEGATIVE) Urine Blood 5+ (NEGATIVE) Urine Nitrite Negative (NEGATIVE) Urine Bilirubin Negative (NEGATIVE) Urine Urobilinogen Normal MG/DL (0.0-1.0) Urine Leukocyte Esterase 3+ (NEGATIVE) Urine RBC Tntc /HPF (0 - 2) Urine WBC 15-20 /HPF (0 - 2) Urine Squamous Epithelial Cells Few /LPF (NONE/OCC) Urine Bacteria Few /HPF (NONE) White Blood Count 11.1 K/UL (4.8-10.8) 10.0 K/UL (4.8-10.8) Red Blood Count 5.20 M/UL (4.20-5.40) 5.32 M/UL (4.20-5.40) Hemoglobin 14.8 G/DL (12.0-16.0) 14.8 G/DL (12.0-16.0) Hematocrit 46.1 % (37.0-47.0) 47.8 % (37.0-47.0) Mean Corpuscular Volume 89 FL (80-99) 90 FL (80-99) Mean Corpuscular Hemoglobin 28.4 PG (27.0-31.0) 27.8 PG (27.0-31.0) Mean Corpuscular Hemoglobin Concent 32.0 G/DL (32.0-36.0) 30.9 G/DL (32.0-36.0) Red Cell Distribution Width 14.3 % (11.6-14.8) 14.1 % (11.6-14.8) Platelet Count 141 K/UL (150-450) 137 K/UL (150-450) Mean Platelet Volume 6.8 FL (6.5-10.1) 7.3 FL (6.5-10.1) Neutrophils (%) (Auto) % (45.0-75.0) % (45.0-75.0) Lymphocytes (%) (Auto) % (20.0-45.0) % (20.0-45.0) Monocytes (%) (Auto) % (1.0-10.0) % (1.0-10.0) Eosinophils (%) (Auto) % (0.0-3.0) % (0.0-3.0) Basophils (%) (Auto) % (0.0-2.0) % (0.0-2.0) Differential Total Cells Counted 100 100 Neutrophils % (Manual) 91 % (45-75) 88 % (45-75) Lymphocytes % (Manual) 3 % (20-45) 5 % (20-45) Monocytes % (Manual) 6 % (1-10) 7 % (1-10) Eosinophils % (Manual) 0 % (0-3) 0 % (0-3) Basophils % (Manual) 0 % (0-2) 0 % (0-2) Band Neutrophils 0 % (0-8) 0 % (0-8) Platelet Estimate Decreased Decreased Platelet Morphology Normal Normal Red Blood Cell Morphology Normal Normal Sodium Level 140 MMOL/L (136-145) 142 MMOL/L (136-145) Potassium Level 3.8 MMOL/L (3.5-5.1) 3.8 MMOL/L (3.5-5.1) Chloride Level 104 MMOL/L (98-107) 103 MMOL/L (98-107) Carbon Dioxide Level 31 MMOL/L (21-32) 34 MMOL/L (21-32) Anion Gap 5 mmol/L (5-15) 5 mmol/L (5-15) Blood Urea Nitrogen 17 mg/dL (7-18) 19 mg/dL (7-18) Creatinine 0.6 MG/DL (0.55-1.30) 0.5 MG/DL (0.55-1.30) Estimat Glomerular Filtration Rate mL/min (>60) mL/min (>60) Glucose Level 125 MG/DL (74-106) 121 MG/DL (74-106) Calcium Level 8.9 MG/DL (8.5-10.1) 9.2 MG/DL (8.5-10.1) Total Bilirubin 0.3 MG/DL (0.2-1.0) 0.4 MG/DL (0.2-1.0) Aspartate Amino Transf (AST/SGOT) 8 U/L (15-37) 5 U/L (15-37) Alanine Aminotransferase (ALT/SGPT) 15 U/L (12-78) 17 U/L (12-78) Alkaline Phosphatase 82 U/L (46-116) 76 U/L (46-116) Total Protein 5.9 G/DL (6.4-8.2) 6.1 G/DL (6.4-8.2) Albumin 2.3 G/DL (3.4-5.0) 2.5 G/DL (3.4-5.0) Globulin 3.6 g/dL 3.6 g/dL Albumin/Globulin Ratio 0.6 (1.0-2.7) 0.7 (1.0-2.7) Arterial Blood pH 7.450 (7.350-7.450) Arterial Blood Partial Pressure CO2 48.4 mmHg (35.0-45.0) Arterial Blood Partial Pressure O2 86.4 mmHg (75.0-100.0) Arterial Blood HCO3 33.3 mmol/L (22.0-26.0) Arterial Blood Oxygen Saturation 97.0 % (95-100) Arterial Blood Base Excess 7.9 (-2-2) Tarun Test Positive Phosphorus Level 2.3 MG/DL (2.5-4.9) Magnesium Level 1.9 MG/DL (1.8-2.4) Pro-B-Type Natriuretic Peptide 449 pg/mL (0-125) Objective: GENERAL: sedated/withdrawn; off vent; on NC NECK: Supple. No adenopathy. No jugular venous distention. orally intubated LUNGS: Moderate breath sounds. no rhonchi. No wheezes. stable CARDIAC: S1 and S2. Regular rhythm without murmurs, rubs, or gallops. ABDOMEN: Soft, nontender, nondistended. no HSM; feeding tube in place EXTREMITIES: No cyanosis, clubbing; trace edema. NEUROLOGIC: Grossly nonfocal, sedated reviewed and examined Micro: Microbiology Date/Time Source Procedure Growth Status 02/17/18 18:17 Indwelling Cath Urine Culture - Preliminary NO GROWTH Resulted Subjective ROS Limited/Unobtainable: No Allergies: Coded Allergies: No Known Allergies (Unverified , 12/10/15) Objective Last 24 Hour Vital Signs Date Time Temp Pulse Resp B/P (MAP) Pulse Ox O2 Delivery O2 Flow Rate FiO2 02/23/18 16:58 72 18 95 Facial 25 02/23/18 16:57 72 18 Bi-pap 25 02/23/18 16:28 82 02/23/18 16:00 Bi-pap 02/23/18 16:00 25 02/23/18 15:52 97.7 81 17 107/60 (76) 95 02/23/18 14:40 18 98 02/23/18 13:10 82 02/23/18 13:00 88 113/61 02/23/18 12:40 88 16 96 Facial 25 02/23/18 12:00 97.5 88 18 113/61 (78) 97 02/23/18 12:00 Bi-pap 02/23/18 12:00 25 02/23/18 10:46 89 16 95 Facial 25 02/23/18 09:34 86 18 99 Facial 25 02/23/18 09:33 83 16 96 Nasal Cannula 2.0 28 02/23/18 09:33 83 16 96 Nasal Cannula 2.0 28 02/23/18 09:15 100 02/23/18 08:46 82 02/23/18 08:00 Bi-pap 02/23/18 08:00 25 02/23/18 07:45 98.0 83 19 127/73 (91) 97 02/23/18 06:45 99 Bi-pap 25 02/23/18 06:45 Bi-pap 25 02/23/18 06:45 81 18 99 Full Face 25 02/23/18 05:05 134 73/81 02/23/18 05:02 88 19 99 Full Face 25 02/23/18 04:00 25 02/23/18 04:00 Bi-pap 02/23/18 04:00 98.2 81 20 134/73 (93) 95 02/23/18 04:00 87 02/23/18 01:08 83 17 98 Full Face 25 02/23/18 00:00 Bi-pap 02/23/18 00:00 25 02/23/18 00:00 97.9 83 18 158/88 (111) 97 02/23/18 00:00 85 02/22/18 23:06 88 20 99 Full Face 25 02/22/18 21:26 92 21 98 Full Face 25 02/22/18 21:24 93 120/67 02/22/18 20:00 Bi-pap 02/22/18 20:00 100 02/22/18 20:00 98.0 93 18 120/67 (84) 97 02/22/18 20:00 25 02/22/18 19:25 95 20 97 Full Face 25 02/22/18 19:24 Bi-pap 25 02/22/18 19:23 98 Bi-pap 25 Intake and Output 02/22/18 02/23/18 19:00 07:00 Intake Total 1472.5 ml 460.0 ml Output Total 1800 ml 1000 ml Balance -327.5 ml -540.0 ml Intake Oral 1280 ml 350 ml IV Total 192.5 ml 110.0 ml Output Urine Total 1800 ml 1000 ml # Bowel Movements 4 Microbiology Date/Time Source Procedure Growth Status 02/20/18 18:40 Stool Clostridium difficile Toxin Assay - Final Complete Laboratory Tests 02/23/18 03:51: White Blood Count 9.4, Red Blood Count 4.70, Hemoglobin 13.9, Hematocrit 42.7, Mean Corpuscular Volume 91, Mean Corpuscular Hemoglobin 29.5, Mean Corpuscular Hemoglobin Concent 32.5, Red Cell Distribution Width 14.1, Platelet Count 154, Mean Platelet Volume 7.1, Neutrophils (%) (Auto) 69.7, Lymphocytes (%) (Auto) 20.3, Monocytes (%) (Auto) 7.2, Eosinophils (%) (Auto) 2.4, Basophils (%) (Auto ) 0.4, Sodium Level 142, Potassium Level 3.6, Chloride Level 102, Carbon Dioxide Level 38H, Anion Gap 2L, Blood Urea Nitrogen 13, Creatinine 0.6, Estimat Glomerular Filtration Rate , Glucose Level 90, Calcium Level 8.9, Magnesium Level 1.7L, Total Bilirubin 0.4, Aspartate Amino Transf (AST/SGOT) 8L , Alanine Aminotransferase (ALT/SGPT) 15, Alkaline Phosphatase 73, Pro-B-Type Natriuretic Peptide 336H, Total Protein 5.7L, Albumin 2.3L, Globulin 3.4, Albumin/Globulin Ratio 0.7L 02/23/18 09:05: Arterial Blood pH 7.392, Arterial Blood Partial Pressure CO2 61.2*H, Arterial Blood Partial Pressure O2 115.8H, Arterial Blood HCO3 36.4H, Arterial Blood Oxygen Saturation 98.4, Arterial Blood Base Excess 9.1*H, Tarun Test Positive Current Medications Medications (Trade) Dose Ordered Sig/Isabella Route PRN Reason Start Time Stop Time Status Last Admin Dose Admin Acetaminophen (Tylenol) 650 mg Q6H PRN ORAL Mild Pain/Temp > 100.5 02/19/18 10:30 03/05/18 16:29 02/22/18 04:39 Acyclovir (Zovirax) 800 mg EVERY 6 HOURS ORAL 02/20/18 12:30 03/22/18 12:29 02/23/18 17:11 Bisacodyl (Dulcolax) 10 mg DAILYPRN PRN RECTAL Constipation 02/19/18 10:30 03/14/18 10:29 Clonidine HCl (Catapres Tab) 0.1 mg Q4H PRN ORAL SBP above 150 02/19/18 10:30 03/21/18 10:29 Diltiazem HCl (Cardizem) 60 mg EVERY 8 HOURS ORAL 02/19/18 14:00 03/06/18 08:59 02/23/18 13:00 Diphenhydramine HCl (Benadryl) 25 mg Q6H PRN ORAL Itching 02/19/18 11:00 03/05/18 16:59 Fluoxetine HCl (PROzac) 20 mg DAILY ORAL 02/20/18 09:00 03/06/18 08:59 02/23/18 08:39 Furosemide (Lasix) 20 mg DAILY IV 02/21/18 09:00 03/23/18 08:59 02/23/18 08:39 Pantoprazole (Protonix) 40 mg DAILY IVP 02/20/18 09:00 03/20/18 08:59 02/23/18 08:38 Piperacillin Sod/ Tazobactam Sod 3.375 gm/Dextrose 110 ml @ 27.5 mls/hr EVERY 8 HOURS IVPB 02/19/18 14:00 02/25/18 13:59 02/23/18 14:14 Prednisone (predniSONE) 20 mg DAILY ORAL 02/21/18 09:00 03/23/18 08:59 02/23/18 08:39 Tiotropium [place] (Spiriva Inhaler) 1 puff DAILY INH 02/20/18 09:00 03/06/18 08:59 02/23/18 09:33 Vitamin A/Vitamin D (A & D Oint) 1 applic EVERY 12 HOURS TOPIC 02/19/18 21:00 03/21/18 20:59 02/23/18 08:39 Ashvin Serrano MD Feb 23, 2018 17:54
[2018-02-23 20:00] VITALS: BP 144/79
[2018-02-24] VITALS: BP 156/96
--- NOTE | 2018-02-24 02:15 | Progress Note ---
DATE: 02/23/2018 CARDIOLOGY PROGRESS NOTE SUBJECTIVE: The patient is on BiPAP support overnight. Presently comfortable off the BiPAP. No shortness of breath. OBJECTIVE: VITAL SIGNS: Saturating 96% on 2 liters, blood pressure 127/73, pulse 83 and respiratory rate 19. LUNGS: Bilateral breath sounds. No wheezing. HEART: Regular rhythm and rate. Normal S1, S2 with a fourth heart sound. ABDOMEN: Soft. No guarding or rebound. Normal bowel sounds noted. EXTREMITIES: With trace dependent edema. No cyanosis. LABORATORY DATA: White count 9.4 and hemoglobin 13.9. Sodium 142, potassium 3.6, bicarbonate 38, BUN 13, and creatinine 0.6. Magnesium 1.7. ABG - pH 7.39, pCO2 61 and pO2 115. Chest radiograph - atelectasis in the retrocardiac region and small left pleural effusion. IMPRESSION: 1. Status post respiratory failure. 2. Chronic obstructive pulmonary disease. 3. Compensated respiratory acidosis. 4. Borderline potassium level. 5. Hypomagnesemia. 6. Severe protein-calorie malnutrition. 7. Acute diastolic congestive heart failure, resolved. 8. Acute myocardial ischemia, resolved. PLAN: 1. Respiratory therapy. 2. Nutritional support. 3. Potassium and magnesium replacement. 4. Observe for rise in bicarbonate levels. 5. Intravenous fluid hydration as needed Ashvin Wu M.D. DR: JESSICA JOB#: [id number] CC:
[2018-02-24 04:00] VITALS: BP 140/79
[2018-02-24] MEDS: dilTIAZem HCl 60mg tab ORAL SCH ×2 (06:34→14:42)
[2018-02-24] MEDS: Piperacillin/Tazobactam 3.375 GM in D5W 110 ML IVPB SCH ×3 (06:34→21:59)
[2018-02-24 08:00] VITALS: BP 130/69
[2018-02-24] MEDS: Pantoprazole Inj IVP SCH (09:14)
[2018-02-24] MEDS: Vitamin A&D Oint 2oz Tube TOPIC SCH ×2 (09:14→21:58)
--- NOTE | 2018-02-24 10:05 | Urology Progress Note ---
Assessment/Plan Assessment/Plan 1. Gross hematuria. 2. Urinary retention. 3. Probable neurogenic bladder. 4. Pyuria. 5. Proteinuria. 6. Possible hemorrhagic cystitis. monitor clinically arellano hand irrigated and do PRN no active bleeding cont with abx as ordered off anticoagulation monitor h/h cysto later Subjective Allergies: Coded Allergies: No Known Allergies (Unverified , 12/10/15) Subjective all noted, comfortable Objective Last 24 Hour Vital Signs Date Time Temp Pulse Resp B/P (MAP) Pulse Ox O2 Delivery O2 Flow Rate FiO2 02/24/18 09:00 77 16 98 Facial 25 02/24/18 08:00 25 02/24/18 08:00 Bi-pap 02/24/18 08:00 96.3 77 16 130/69 (89) 97 02/24/18 08:00 75 02/24/18 06:57 79 16 97 Facial 25 02/24/18 06:54 97 Bi-pap 25 02/24/18 06:53 Bi-pap 25 02/24/18 06:34 74 140/79 02/24/18 04:41 74 20 98 Facial 25 02/24/18 04:00 Bi-pap 02/24/18 04:00 80 02/24/18 04:00 98.1 79 18 140/79 (99) 98 02/24/18 04:00 25 02/24/18 02:39 75 18 98 Facial 25 02/24/18 00:42 73 18 98 Facial 25 02/24/18 00:00 78 02/24/18 00:00 Bi-pap 02/24/18 00:00 97.6 83 18 156/96 (116) 97 02/23/18 22:51 75 18 99 Facial 25 02/23/18 22:07 74 144/79 02/23/18 21:01 74 18 99 Facial 25 02/23/18 20:00 83 02/23/18 20:00 Bi-pap 02/23/18 20:00 25 02/23/18 20:00 97.7 79 18 144/79 (100) 98 02/23/18 19:05 76 18 98 Facial 25 02/23/18 19:05 Bi-pap 25 02/23/18 19:05 99 Bi-pap 25 02/23/18 16:58 72 18 95 Facial 25 10/27/18 16:57 72 18 Bi-pap 25 02/23/18 16:28 82 02/23/18 16:00 Bi-pap 02/23/18 16:00 25 02/23/18 15:52 97.7 81 17 107/60 (76) 95 02/23/18 14:40 18 98 02/23/18 13:10 82 02/23/18 13:00 88 113/61 02/23/18 12:40 88 16 96 Facial 25 02/23/18 12:00 97.5 88 18 113/61 (78) 97 02/23/18 12:00 Bi-pap 02/23/18 12:00 25 02/23/18 10:46 89 16 95 Facial 25 Intake and Output 02/23/18 02/24/18 19:00 07:00 Intake Total 1170.0 ml 471.7 ml Output Total 1300 ml 1400 ml Balance -130.0 ml -928.3 ml Intake Oral 750 ml 350 ml IV Total 420.0 ml 121.7 ml Output Urine Total 1300 ml 1400 ml # Bowel Movements 1 Microbiology Date/Time Source Procedure Growth Status 02/03/18 15:30 Blood Blood Culture - Final NO GROWTH AFTER 5 DAYS Complete 02/20/18 18:40 Stool Clostridium difficile Toxin Assay - Final Complete 02/20/18 12:50 Urine,Clean Catch Urine Culture - Final NO GROWTH AFTER 48 HOURS Complete 02/03/18 15:30 Rectal Mucosa - Final NO CARBAPENEM-RESISTANT ENTEROBACTERI... Complete Current Medications Medications (Trade) Dose Ordered Sig/Isabella Route PRN Reason Start Time Stop Time Status Last Admin Dose Admin Acetaminophen (Tylenol) 650 mg Q6H PRN ORAL Mild Pain/Temp > 100.5 02/19/18 10:30 03/05/18 16:29 02/22/18 04:39 Acyclovir (Zovirax) 800 mg EVERY 6 HOURS ORAL 02/20/18 12:30 03/22/18 12:29 02/24/18 06:34 Bisacodyl (Dulcolax) 10 mg DAILYPRN PRN RECTAL Constipation 02/19/18 10:30 03/14/18 10:29 Clonidine HCl (Catapres Tab) 0.1 mg Q4H PRN ORAL SBP above 150 02/19/18 10:30 03/21/18 10:29 Diltiazem HCl (Cardizem) 60 mg EVERY 8 HOURS ORAL 02/19/18 14:00 03/06/18 08:59 02/24/18 06:34 Diphenhydramine HCl (Benadryl) 25 mg Q6H PRN ORAL Itching 02/19/18 11:00 03/05/18 16:59 Fluoxetine HCl (PROzac) 20 mg DAILY ORAL 02/20/18 09:00 03/06/18 08:59 02/24/18 09:14 Furosemide (Lasix) 20 mg DAILY IV 02/21/18 09:00 03/23/18 08:59 02/24/18 09:13 Pantoprazole (Protonix) 40 mg DAILY IVP 02/20/18 09:00 03/20/18 08:59 02/24/18 09:14 Piperacillin Sod/ Tazobactam Sod 3.375 gm/Dextrose 110 ml @ 27.5 mls/hr EVERY 8 HOURS IVPB 02/19/18 14:00 02/25/18 23:59 02/24/18 06:34 Prednisone (predniSONE) 20 mg DAILY ORAL 02/21/18 09:00 03/23/18 08:59 02/24/18 09:14 Tiotropium [place] (Spiriva Inhaler) 1 puff DAILY INH 02/20/18 09:00 03/06/18 08:59 02/23/18 09:33 Vitamin A/Vitamin D (A & D Oint) 1 applic EVERY 12 HOURS TOPIC 02/19/18 21:00 03/21/18 20:59 02/24/18 09:14 Height (Feet): 5 Height (Inches): 6.00 Weight (Pounds): 207 Objective exam stable, urine clearing renal u/s (02/19) noted LOIS ESPARZA Feb 24, 2018 10:05
--- NOTE | 2018-02-24 10:22 | Infectious Diseases Prog Note ---
Assessment/Plan Assessment/Plan antibiotics : zosyn A 1. pneumonia improving 2. head lice improving 3. COPD 4. ? zoster P 1. continue zosyn 2. continue acyclovir 5 more days 3. will follow up cultures Subjective Constitutional: Denies: fever, chills Respiratory: Denies: shortness of breath, dry cough Gastrointestinal/Abdominal: Reports: diarrhea; Denies: nausea, vomiting Musculoskeletal: Denies: pain Allergies: Coded Allergies: No Known Allergies (Unverified , 12/10/15) Objective Vital Signs Last 24 Hour Vital Signs Date Time Temp Pulse Resp B/P (MAP) Pulse Ox O2 Delivery O2 Flow Rate FiO2 02/24/18 10:11 88 20 98 Nasal Cannula 2.0 28 02/24/18 09:00 77 16 98 Facial 25 02/24/18 08:00 25 02/24/18 08:00 Bi-pap 02/24/18 08:00 96.3 77 16 130/69 (89) 97 02/24/18 08:00 75 02/24/18 06:57 79 16 97 Facial 25 02/24/18 06:54 97 Bi-pap 25 02/24/18 06:53 Bi-pap 25 02/24/18 06:34 74 140/79 02/24/18 04:41 74 20 98 Facial 25 02/24/18 04:00 Bi-pap 02/24/18 04:00 80 02/24/18 04:00 98.1 79 18 140/79 (99) 98 02/24/18 04:00 25 02/24/18 02:39 75 18 98 Facial 25 02/24/18 00:42 73 18 98 Facial 25 02/24/18 00:00 78 02/24/18 00:00 Bi-pap 02/24/18 00:00 97.6 83 18 156/96 (116) 97 02/23/18 22:51 75 18 99 Facial 25 02/23/18 22:07 74 144/79 02/23/18 21:01 74 18 99 Facial 25 02/23/18 20:00 83 02/23/18 20:00 Bi-pap 02/23/18 20:00 25 02/23/18 20:00 97.7 79 18 144/79 (100) 98 02/23/18 19:05 76 18 98 Facial 25 02/23/18 19:05 Bi-pap 25 02/23/18 19:05 99 Bi-pap 25 02/23/18 16:58 72 18 95 Facial 25 02/23/18 16:57 72 18 Bi-pap 25 02/23/18 16:28 82 02/23/18 16:00 Bi-pap 02/23/18 16:00 25 02/23/18 15:52 97.7 81 17 107/60 (76) 95 02/23/18 14:40 18 98 02/23/18 13:10 82 02/23/18 13:00 88 113/61 02/23/18 12:40 88 16 96 Facial 25 02/23/18 12:00 97.5 88 18 113/61 (78) 97 02/23/18 12:00 Bi-pap 02/23/18 12:00 25 02/23/18 10:46 89 16 95 Facial 25 Height (Feet): 5 Height (Inches): 6.00 Weight (Pounds): 207 Respiratory/Chest: lungs clear Cardiovascular: normal rate, regular rhythm, no gallop/murmur Abdomen: soft, non tender Extremities: no edema Current Medications Medications (Trade) Dose Ordered Sig/Isabella Route PRN Reason Start Time Stop Time Status Last Admin Dose Admin Acetaminophen (Tylenol) 650 mg Q6H PRN ORAL Mild Pain/Temp > 100.5 02/19/18 10:30 03/05/18 16:29 02/22/18 04:39 Acyclovir (Zovirax) 800 mg EVERY 6 HOURS ORAL 02/20/18 12:30 03/22/18 12:29 02/24/18 06:34 Bisacodyl (Dulcolax) 10 mg DAILYPRN PRN RECTAL Constipation 02/19/18 10:30 03/14/18 10:29 Clonidine HCl (Catapres Tab) 0.1 mg Q4H PRN ORAL SBP above 150 02/19/18 10:30 03/21/18 10:29 Diltiazem HCl (Cardizem) 60 mg EVERY 8 HOURS ORAL 02/19/18 14:00 03/06/18 08:59 02/24/18 06:34 Diphenhydramine HCl (Benadryl) 25 mg Q6H PRN ORAL Itching 02/19/18 11:00 03/05/18 16:59 Fluoxetine HCl (PROzac) 20 mg DAILY ORAL 02/20/18 09:00 03/06/18 08:59 02/24/18 09:14 Furosemide (Lasix) 20 mg DAILY IV 02/21/18 09:00 03/23/18 08:59 02/24/18 09:13 Pantoprazole (Protonix) 40 mg DAILY IVP 02/20/18 09:00 03/20/18 08:59 02/24/18 09:14 Piperacillin Sod/ Tazobactam Sod 3.375 gm/Dextrose 110 ml @ 27.5 mls/hr EVERY 8 HOURS IVPB 02/19/18 14:00 02/25/18 23:59 02/24/18 06:34 Prednisone (predniSONE) 20 mg DAILY ORAL 02/21/18 09:00 03/23/18 08:59 02/24/18 09:14 Tiotropium [place] (Spiriva Inhaler) 1 puff DAILY INH 02/20/18 09:00 03/06/18 08:59 02/24/18 10:11 Vitamin A/Vitamin D (A & D Oint) 1 applic EVERY 12 HOURS TOPIC 02/19/18 21:00 03/21/18 20:59 02/24/18 09:14 Radha Macias MD Feb 24, 2018 10:22
[2018-02-24] MEDS ORDERED: NS 275ml ONE (10:51)
[2018-02-24 12:00] VITALS: BP 119/68
[2018-02-24 16:00] VITALS: BP 137/72
--- NOTE | 2018-02-24 17:44 | Pulmonology Progress Note ---
Assessment/Plan Assessment/Plan PULMONARY PROGRESS NOTE IMPRESSION: Acute respiratory failure, COPD with acute exacerbation, respiratory acidosis and associated hypoxemia, cardiomegaly, pleural effusion and pulmonary edema, protein-calorie malnutrition. CXR: 1. Subsegmental atelectasis versus infiltrate in the left lung base/retrocardiac region, stable. 2. Blunting of the left breast phrenic angle suggesting a small left pleural effusion. PLAN seen earlier respiratory care reviewed IV antibiotics IV steroids taper- to prednisone supportive care as able monitor closely for now and try to wean daily guarded feeds position change and monitor for change skin monitoring DVT prophylaxis hope to avoid trach medications/laboratory data/nursing notes/ICU care reviewed in detail note reviewed and edited care discussed with RN and RT ICU time spent 40 minutes Critical Care - Subjective Interval Events: stable and off vent no distress on oxygen Condition: improving EKG Rhythm: Sinus Rhythm I&O: Intake and Output 02/18/18 02/19/18 19:00 07:00 Intake Total 880.0 ml 357.5 ml Output Total 1460 ml 600 ml Balance -580.0 ml -242.5 ml IV Total 220.0 ml 137.5 ml Tube Feeding 660 ml 220 ml Output Urine Total 1460 ml 600 ml # Bowel Movements 2 Critical Care - Objective CXR: minimal atelectasis ET-Tube: 7.5 ET Position: 24 Last 24 Hour Vital Signs Date Time Temp Pulse Resp B/P (MAP) Pulse Ox O2 Delivery O2 Flow Rate FiO2 02/19/18 19:20 Nasal Cannula 2.0 28 02/19/18 19:20 82 16 98 Nasal Cannula 2.0 28 02/19/18 19:20 98 Nasal Cannula 2.0 28 02/19/18 17:10 81 02/19/18 16:00 97.8 76 16 155/80 (105) 99 97.8 02/19/18 16:00 78 02/19/18 16:00 Nasal Cannula 2.0 Nasal Cannula 2.0 02/19/18 14:53 85 147/93 02/19/18 13:55 85 16 100 Nasal Cannula 2.0 28 02/19/18 13:45 84 16 98 Nasal Cannula 2.0 28 02/19/18 12:00 76 02/19/18 12:00 Nasal Cannula 2.0 Nasal Cannula 2.0 02/19/18 12:00 97.5 76 16 147/93 (111) 100 97.5 02/19/18 10:20 02/19/18 09:00 80 15 144/78 (100) 100 02/19/18 08:00 77 21 155/80 (105) 99 02/19/18 08:00 85 02/19/18 08:00 Nasal Cannula 2.0 Nasal Cannula 2.0 02/19/18 07:48 76 16 100 Nasal Cannula 2.0 28 02/19/18 07:46 Nasal Cannula 3.0 32 02/19/18 07:39 87 16 98 Nasal Cannula 2.0 28 02/19/18 07:38 98 Nasal Cannula 3.0 32 02/19/18 07:00 98.4 78 22 156/88 (110) 99 98.4 02/19/18 06:12 80 164/83 02/19/18 06:00 79 22 164/83 (110) 99 02/19/18 05:00 79 22 161/91 (114) 99 02/19/18 04:00 Nasal Cannula 2.0 Nasal Cannula 2.0 02/19/18 04:00 78 22 166/84 (111) 99 02/19/18 04:00 80 02/19/18 03:00 80 22 166/82 (110) 99 02/19/18 02:00 82 22 146/90 (108) 99 02/19/18 01:00 98.2 81 22 148/69 (95) 99 98.2 02/19/18 00:58 73 17 100 Nasal Cannula 2.0 28 02/19/18 00:57 28 02/19/18 00:50 76 17 99 Nasal Cannula 2.0 28 02/19/18 00:00 85 02/19/18 00:00 Nasal Cannula 2.0 Nasal Cannula 2.0 02/19/18 00:00 76 22 150/79 (102) 99 02/18/18 23:00 91 22 146/93 (110) 99 02/18/18 22:00 88 22 130/65 (86) 99 02/18/18 21:55 91 140/80 02/18/18 21:00 98.0 93 22 140/80 (100) 99 98.0 02/18/18 20:00 83 02/18/18 20:00 90 22 124/71 (88) 99 02/18/18 20:00 Nasal Cannula 2.0 Nasal Cannula 2.0 Labs: Labs Test 02/17/18 18:17 02/18/18 04:00 02/18/18 14:11 02/19/18 04:54 Urine Color Red Urine Appearance Turbid Urine pH 7 (4.5-8.0) Urine Specific Matthews 1.010 (1.005-1.035) Urine Protein 3+ (NEGATIVE) Urine Glucose (UA) Negative (NEGATIVE) Urine Ketones Negative (NEGATIVE) Urine Blood 5+ (NEGATIVE) Urine Nitrite Negative (NEGATIVE) Urine Bilirubin Negative (NEGATIVE) Urine Urobilinogen Normal MG/DL (0.0-1.0) Urine Leukocyte Esterase 3+ (NEGATIVE) Urine RBC Tntc /HPF (0 - 2) Urine WBC 15-20 /HPF (0 - 2) Urine Squamous Epithelial Cells Few /LPF (NONE/OCC) Urine Bacteria Few /HPF (NONE) White Blood Count 11.1 K/UL (4.8-10.8) 10.0 K/UL (4.8-10.8) Red Blood Count 5.20 M/UL (4.20-5.40) 5.32 M/UL (4.20-5.40) Hemoglobin 14.8 G/DL (12.0-16.0) 14.8 G/DL (12.0-16.0) Hematocrit 46.1 % (37.0-47.0) 47.8 % (37.0-47.0) Mean Corpuscular Volume 89 FL (80-99) 90 FL (80-99) Mean Corpuscular Hemoglobin 28.4 PG (27.0-31.0) 27.8 PG (27.0-31.0) Mean Corpuscular Hemoglobin Concent 32.0 G/DL (32.0-36.0) 30.9 G/DL (32.0-36.0) Red Cell Distribution Width 14.3 % (11.6-14.8) 14.1 % (11.6-14.8) Platelet Count 141 K/UL (150-450) 137 K/UL (150-450) Mean Platelet Volume 6.8 FL (6.5-10.1) 7.3 FL (6.5-10.1) Neutrophils (%) (Auto) % (45.0-75.0) % (45.0-75.0) Lymphocytes (%) (Auto) % (20.0-45.0) % (20.0-45.0) Monocytes (%) (Auto) % (1.0-10.0) % (1.0-10.0) Eosinophils (%) (Auto) % (0.0-3.0) % (0.0-3.0) Basophils (%) (Auto) % (0.0-2.0) % (0.0-2.0) Differential Total Cells Counted 100 100 Neutrophils % (Manual) 91 % (45-75) 88 % (45-75) Lymphocytes % (Manual) 3 % (20-45) 5 % (20-45) Monocytes % (Manual) 6 % (1-10) 7 % (1-10) Eosinophils % (Manual) 0 % (0-3) 0 % (0-3) Basophils % (Manual) 0 % (0-2) 0 % (0-2) Band Neutrophils 0 % (0-8) 0 % (0-8) Platelet Estimate Decreased Decreased Platelet Morphology Normal Normal Red Blood Cell Morphology Normal Normal Sodium Level 140 MMOL/L (136-145) 142 MMOL/L (136-145) Potassium Level 3.8 MMOL/L (3.5-5.1) 3.8 MMOL/L (3.5-5.1) Chloride Level 104 MMOL/L (98-107) 103 MMOL/L (98-107) Carbon Dioxide Level 31 MMOL/L (21-32) 34 MMOL/L (21-32) Anion Gap 5 mmol/L (5-15) 5 mmol/L (5-15) Blood Urea Nitrogen 17 mg/dL (7-18) 19 mg/dL (7-18) Creatinine 0.6 MG/DL (0.55-1.30) 0.5 MG/DL (0.55-1.30) Estimat Glomerular Filtration Rate mL/min (>60) mL/min (>60) Glucose Level 125 MG/DL (74-106) 121 MG/DL (74-106) Calcium Level 8.9 MG/DL (8.5-10.1) 9.2 MG/DL (8.5-10.1) Total Bilirubin 0.3 MG/DL (0.2-1.0) 0.4 MG/DL (0.2-1.0) Aspartate Amino Transf (AST/SGOT) 8 U/L (15-37) 5 U/L (15-37) Alanine Aminotransferase (ALT/SGPT) 15 U/L (12-78) 17 U/L (12-78) Alkaline Phosphatase 82 U/L (46-116) 76 U/L (46-116) Total Protein 5.9 G/DL (6.4-8.2) 6.1 G/DL (6.4-8.2) Albumin 2.3 G/DL (3.4-5.0) 2.5 G/DL (3.4-5.0) Globulin 3.6 g/dL 3.6 g/dL Albumin/Globulin Ratio 0.6 (1.0-2.7) 0.7 (1.0-2.7) Arterial Blood pH 7.450 (7.350-7.450) Arterial Blood Partial Pressure CO2 48.4 mmHg (35.0-45.0) Arterial Blood Partial Pressure O2 86.4 mmHg (75.0-100.0) Arterial Blood HCO3 33.3 mmol/L (22.0-26.0) Arterial Blood Oxygen Saturation 97.0 % (95-100) Arterial Blood Base Excess 7.9 (-2-2) Tarun Test Positive Phosphorus Level 2.3 MG/DL (2.5-4.9) Magnesium Level 1.9 MG/DL (1.8-2.4) Pro-B-Type Natriuretic Peptide 449 pg/mL (0-125) Objective: GENERAL: sedated/withdrawn; off vent; on NC NECK: Supple. No adenopathy. No jugular venous distention. orally intubated LUNGS: Moderate breath sounds. no rhonchi. No wheezes. stable CARDIAC: S1 and S2. Regular rhythm without murmurs, rubs, or gallops. ABDOMEN: Soft, nontender, nondistended. no HSM; feeding tube in place EXTREMITIES: No cyanosis, clubbing; trace edema. NEUROLOGIC: Grossly nonfocal, sedated reviewed and examined Micro: Microbiology Date/Time Source Procedure Growth Status 02/17/18 18:17 Indwelling Cath Urine Culture - Preliminary NO GROWTH Resulted Subjective ROS Limited/Unobtainable: No Allergies: Coded Allergies: No Known Allergies (Unverified , 12/10/15) Objective Last 24 Hour Vital Signs Date Time Temp Pulse Resp B/P (MAP) Pulse Ox O2 Delivery O2 Flow Rate FiO2 02/24/18 17:21 83 17 98 Full Face 25 02/24/18 16:00 25 02/24/18 16:00 Bi-pap Bi-pap 02/24/18 16:00 98.3 81 17 137/72 (93) 95 02/24/18 16:00 80 02/24/18 14:58 91 21 97 Full Face 25 02/24/18 14:42 91 119/68 02/24/18 13:11 91 18 97 02/24/18 12:00 98.6 83 17 119/68 (85) 97 02/24/18 12:00 Nasal Cannula 3.0 Nasal Cannula 3.0 02/24/18 12:00 76 02/24/18 12:00 25 02/24/18 10:40 89 20 98 02/24/18 10:22 89 16 98 Nasal Cannula 2.0 02/24/18 10:11 88 20 98 Nasal Cannula 2.0 02/24/18 09:00 77 16 98 Facial 25 02/24/18 08:00 25 02/24/18 08:00 Bi-pap 02/24/18 08:00 96.3 77 16 130/69 (89) 97 02/24/18 08:00 75 02/24/18 06:57 79 16 97 Facial 25 02/24/18 06:54 97 Bi-pap 25 02/24/18 06:53 Bi-pap 25 02/24/18 06:34 74 140/79 02/24/18 04:41 74 20 98 Facial 25 02/24/18 04:00 Bi-pap 02/24/18 04:00 80 02/24/18 04:00 98.1 79 18 140/79 (99) 98 02/24/18 04:00 25 02/24/18 02:39 75 18 98 Facial 25 02/24/18 00:42 73 18 98 Facial 25 02/24/18 00:00 78 02/24/18 00:00 Bi-pap 02/24/18 00:00 97.6 83 18 156/96 (116) 97 02/23/18 22:51 75 18 99 Facial 25 02/23/18 22:07 74 144/79 02/23/18 21:01 74 18 99 Facial 25 02/23/18 20:00 83 02/23/18 20:00 Bi-pap 02/23/18 20:00 25 02/23/18 20:00 97.7 79 18 144/79 (100) 98 02/23/18 19:05 76 18 98 Facial 25 02/23/18 19:05 Bi-pap 25 02/23/18 19:05 99 Bi-pap 25 Intake and Output 02/23/18 02/24/18 18:59 06:59 Intake Total 1170.0 ml 460.0 ml Output Total 1300 ml 1400 ml Balance -130.0 ml -940.0 ml Intake Oral 750 ml 350 ml IV Total 420.0 ml 110.0 ml Output Urine Total 1300 ml 1400 ml # Bowel Movements 1 Current Medications Medications (Trade) Dose Ordered Sig/Isabella Route PRN Reason Start Time Stop Time Status Last Admin Dose Admin Acetaminophen (Tylenol) 650 mg Q6H PRN ORAL Mild Pain/Temp > 100.5 02/19/18 10:30 03/05/18 16:29 02/22/18 04:39 Acyclovir (Zovirax) 800 mg EVERY 6 HOURS ORAL 02/20/18 12:30 03/22/18 12:29 02/24/18 17:10 Bisacodyl (Dulcolax) 10 mg DAILYPRN PRN RECTAL Constipation 02/19/18 10:30 03/14/18 10:29 Clonidine HCl (Catapres Tab) 0.1 mg Q4H PRN ORAL SBP above 150 02/19/18 10:30 03/21/18 10:29 Diltiazem HCl (Cardizem) 60 mg EVERY 8 HOURS ORAL 02/19/18 14:00 03/06/18 08:59 02/24/18 14:42 Diphenhydramine HCl (Benadryl) 25 mg Q6H PRN ORAL Itching 02/19/18 11:00 03/05/18 16:59 Fluoxetine HCl (PROzac) 20 mg DAILY ORAL 02/20/18 09:00 03/06/18 08:59 02/24/18 09:14 Furosemide (Lasix) 20 mg DAILY IV 02/21/18 09:00 03/23/18 08:59 02/24/18 09:13 Pantoprazole (Protonix) 40 mg DAILY IVP 02/20/18 09:00 03/20/18 08:59 02/24/18 09:14 Piperacillin Sod/ Tazobactam Sod 3.375 gm/Dextrose 110 ml @ 27.5 mls/hr EVERY 8 HOURS IVPB 02/19/18 14:00 02/25/18 23:59 02/24/18 14:45 Prednisone (predniSONE) 20 mg DAILY ORAL 02/21/18 09:00 03/23/18 08:59 02/24/18 09:14 Tiotropium [place] (Spiriva Inhaler) 1 puff DAILY INH 02/20/18 09:00 03/06/18 08:59 02/24/18 10:11 Vitamin A/Vitamin D (A & D Oint) 1 applic EVERY 12 HOURS TOPIC 02/19/18 21:00 03/21/18 20:59 02/24/18 09:14 Ashvin Serrano MD Feb 24, 2018 17:44
[2018-02-24 20:00] VITALS: BP 130/70
--- NOTE | 2018-02-24 22:45 | Progress Note ---
DATE: 02/24/2018 CARDIOLOGY PROGRESS NOTE SUBJECTIVE: Condition remains largely unchanged. The patient remains on periodic BiPAP support. OBJECTIVE: VITAL SIGNS: Blood pressure 155/80, heart rate 76, and respiratory rate 16. Monitored rhythm sinus. LUNGS: Good breath sounds. Few rhonchi. No wheezes. HEART: Regular rhythm and rate. Normal S1, S2 with a fourth heart sound. ABDOMEN: Soft. EXTREMITIES: No edema. IMPRESSION: 1. Compensated respiratory acidosis status post respiratory failure. 2. Chronic obstructive pulmonary disease. 3. Hypertensive heart disease with elevated blood pressure trend. 4. Acute on chronic diastolic congestive heart failure, compensated. 5. Acute myocardial ischemia, resolved. PLAN: 1. Steroid taper. 2. Respiratory hygiene. 3. Bronchodilators. 4. Mobilization. 5. DVT prophylaxis. 6. Expect improvement in blood pressure parameters as steroids are tapered off and titrate diltiazem further for tighter control if needed. Ashvin Wu M.D. DR: COOPER JOB#: [id number] CC:
[2018-02-25] VITALS: BP 138/74
[2018-02-25 04:00] VITALS: BP 150/82
[2018-02-25] MEDS: Piperacillin/Tazobactam 3.375 GM in D5W 110 ML IVPB SCH ×3 (05:55→21:16)
[2018-02-25 06:15] LABS: BASOPHILS % (AUTO) 0.4 % (0.0-2.0); EOSINOPHILS % (AUTO) 2.1 % (0.0-3.0); HEMATOCRIT 40.5 % (37.0-47.0); HEMOGLOBIN 12.8 G/DL (12.0-16.0); MEAN CORPUSCULAR VOLUME 90 FL (80-99); MONOCYTES % (AUTO) 5.9 % (1.0-10.0); NEUTROPHILS % (AUTO) 74.6 % (45.0-75.0); PLATELET COUNT 187 K/UL (150-450); RED BLOOD COUNT 4.49 M/UL (4.20-5.40); RED CELL DISTRIBUTION WIDTH 14.1 % (11.6-14.8); WHITE BLOOD COUNT 11.3 K/UL (4.8-10.8)
[2018-02-25 06:54] LABS: ALANINE AMINOTRANSFERASE 16 U/L (12-78); ALBUMIN 2.3 G/DL (3.4-5.0); ALBUMIN/GLOBULIN RATIO 0.7 (1.0-2.7); ALKALINE PHOSPHATASE 69 U/L (46-116); ANION GAP 3 mmol/L (5-15); ASPARTATE AMINO TRANSFERASE 12 U/L (15-37); BILIRUBIN,TOTAL 0.5 MG/DL (0.2-1.0); BLOOD UREA NITROGEN 16 mg/dL (7-18); CALCIUM 8.6 MG/DL (8.5-10.1); CARBON DIOXIDE 33 MMOL/L (21-32); CHLORIDE 102 MMOL/L (98-107); CREATININE 0.6 MG/DL (0.55-1.30); POTASSIUM 3.8 MMOL/L (3.5-5.1); SODIUM 138 MMOL/L (136-145)
--- NOTE | 2018-02-25 07:45 | General Progress Note ---
Assessment/Plan Problem List: (1) COPD exacerbation ICD Codes: J44.1 - Chronic obstructive pulmonary disease with (acute) exacerbation SNOMED: 662384788 (2) HTN (hypertension) ICD Codes: I10 - Essential (primary) hypertension SNOMED: 06832449 (3) Hypoxia ICD Codes: R09.02 - Hypoxemia SNOMED: 896586660 (4) Elevated troponin ICD Codes: R74.8 - Abnormal levels of other serum enzymes SNOMED: 235694370, 236503545, 365379585 (5) Renal insufficiency ICD Codes: N28.9 - Disorder of kidney and ureter, unspecified SNOMED: 577173549, 304588110 (6) Respiratory failure ICD Codes: J96.90 - Respiratory failure, unspecified, unspecified whether with hypoxia or hypercapnia SNOMED: 662938018 Qualifiers: Qualified Codes: J96.02 - Acute respiratory failure with hypercapnia (7) Right lower lobe pneumonia ICD Codes: J18.1 - Lobar pneumonia, unspecified organism SNOMED: 003270919 Qualifiers: Qualified Codes: J18.1 - Lobar pneumonia, unspecified organism Status: stable, progressing Assessment/Plan resp rx o2 iv abx per id monitor cxr po steroids bipap per pulm keep dry ID appreciated guarded refer to ltach Subjective ROS Limited/Unobtainable: No Constitutional: Reports: malaise, weakness HEENT: Reports: no symptoms Cardiovascular: Reports: no symptoms Respiratory: Reports: shortness of breath Gastrointestinal/Abdominal: Reports: no symptoms Genitourinary: Reports: no symptoms Neurologic/Psychiatric: Reports: pre-existing deficit Endocrine: Reports: no symptoms Hematologic/Lymphatic: Reports: anemia Allergies: Coded Allergies: No Known Allergies (Unverified , 12/10/15) All Systems: reviewed and negative except above Subjective no complaints. remains on continuous bipap. denies sob. no overnight events. Objective Last 24 Hour Vital Signs Date Time Temp Pulse Resp B/P (MAP) Pulse Ox O2 Delivery O2 Flow Rate FiO2 02/25/18 07:07 69 16 99 Full Face 25 02/25/18 07:05 96 Bi-pap 25 02/25/18 07:05 Bi-pap 25 02/25/18 05:13 68 18 98 Full Face 25 02/25/18 04:00 82 02/25/18 04:00 97.6 76 16 150/82 (104) 96 02/25/18 04:00 25 02/25/18 04:00 Bi-pap Bi-pap 02/25/18 02:49 75 16 98 Full Face 25 02/25/18 01:05 78 17 98 Full Face 25 02/25/18 00:00 25 02/25/18 00:00 98.5 77 16 138/74 (95) 96 02/25/18 00:00 82 02/25/18 00:00 Bi-pap Bi-pap 02/24/18 21:24 83 17 98 Full Face 25 02/24/18 20:00 Bi-pap Bi-pap 02/24/18 20:00 97.7 87 16 130/70 (90) 97 02/24/18 20:00 88 02/24/18 20:00 25 02/24/18 19:37 Bi-pap 25 02/24/18 19:36 98 Bi-pap 25 02/24/18 19:35 81 18 99 Full Face 25 02/24/18 17:21 83 17 98 Full Face 25 02/24/18 16:00 25 02/24/18 16:00 Bi-pap Bi-pap 02/24/18 16:00 98.3 81 17 137/72 (93) 95 02/24/18 16:00 80 02/24/18 14:58 91 21 97 Full Face 25 02/24/18 14:42 91 119/68 02/24/18 13:11 91 18 97 02/24/18 12:00 98.6 83 17 119/68 (85) 97 02/24/18 12:00 Nasal Cannula 3.0 Nasal Cannula 3.0 02/24/18 12:00 76 02/24/18 12:00 25 02/24/18 10:40 89 20 98 02/24/18 10:22 89 16 98 Nasal Cannula 2.0 02/24/18 10:11 88 20 98 Nasal Cannula 2.0 02/24/18 09:00 77 16 98 Facial 25 02/24/18 08:00 25 02/24/18 08:00 Bi-pap 02/24/18 08:00 96.3 77 16 130/69 (89) 97 02/24/18 08:00 75 Intake and Output 02/24/18 02/25/18 19:00 07:00 Intake Total 692.5 ml 477.5 ml Output Total 1300 ml 1300 ml Balance -607.5 ml -822.5 ml Intake Oral 500 ml 450 ml IV Total 192.5 ml 27.5 ml Output Urine Total 1300 ml 1300 ml # Bowel Movements 1 Laboratory Tests 02/25/18 04:00: White Blood Count 11.3H, Red Blood Count 4.49, Hemoglobin 12.8, Hematocrit 40.5 , Mean Corpuscular Volume 90, Mean Corpuscular Hemoglobin 28.6, Mean Corpuscular Hemoglobin Concent 31.7L, Red Cell Distribution Width 14.1, Platelet Count 187, Mean Platelet Volume 6.6, Neutrophils (%) (Auto) 74.6, Lymphocytes (%) (Auto) 17.0L, Monocytes (%) (Auto) 5.9, Eosinophils (%) (Auto) 2.1, Basophils (%) (Auto) 0.4, Sodium Level 138, Potassium Level 3.8, Chloride Level 102, Carbon Dioxide Level 33H, Anion Gap 3L, Blood Urea Nitrogen 16, Creatinine 0.6, Estimat Glomerular Filtration Rate , Glucose Level 77, Calcium Level 8.6, Magnesium Level 1.9, Total Bilirubin 0.5, Aspartate Amino Transf (AST /SGOT) 12L, Alanine Aminotransferase (ALT/SGPT) 16, Alkaline Phosphatase 69, Pro -B-Type Natriuretic Peptide 299H, Total Protein 5.7L, Albumin 2.3L, Globulin 3.4 , Albumin/Globulin Ratio 0.7L Height (Feet): 5 Height (Inches): 6.00 Weight (Pounds): 207 Objective General Appearance: WD/WN, resting. on bipap, opens eyes. alert. follows commands Neck: supple Cardiovascular: regular rhythm Respiratory/Chest: lungs mostly clear, few rhonchi Abdomen: normal bowel sounds, non tender, soft, no organomegaly Edema: no edema noted Arm (L), no edema noted Arm (R), no edema noted Leg (L), no edema noted Leg (R), no edema noted Pedal (L), no edema noted Pedal (R), no edema noted Generalized Manan Byrd MD Feb 25, 2018 07:45
[2018-02-25 08:00] VITALS: BP 126/68
--- NOTE | 2018-02-25 08:14 | Critical Care Progress Note ---
Assessment/Plan Assessment/Plan IMPRESSION: Acute on chronic respiratory failure, COPD with acute exacerbation, chronic respiratory acidosis and associated hypoxemia, cardiomegaly, pleural effusion and pulmonary edema, protein-calorie malnutrition. PLAN monitor as is respiratory care reviewed supportive care as able monitor closely for now and use BIPAP QHS if able guarded feeds position change and monitor for change skin monitoring DVT prophylaxis monitor acid base medications/laboratory data/nursing notes reviewed in detail note reviewed and edited care discussed with RN and RT Critical Care - Subjective Interval Events: did not use BIPAP ABG noted care reviewed ROS Limited/Unobtainable: Yes EKG Rhythm: Sinus Rhythm I&O: Intake and Output 02/24/18 02/25/18 19:00 07:00 Intake Total 692.5 ml 477.5 ml Output Total 1300 ml 1300 ml Balance -607.5 ml -822.5 ml Intake Oral 500 ml 450 ml IV Total 192.5 ml 27.5 ml Output Urine Total 1300 ml 1300 ml # Bowel Movements 1 Critical Care - Objective ET-Tube: 7.5 ET Position: 24 Last 24 Hour Vital Signs Date Time Temp Pulse Resp B/P (MAP) Pulse Ox O2 Delivery O2 Flow Rate FiO2 02/25/18 07:07 69 16 99 Full Face 25 02/25/18 07:05 96 Bi-pap 02/25/18 07:05 Bi-pap 25 02/25/18 05:13 68 18 98 Full Face 25 02/25/18 04:00 82 02/25/18 04:00 97.6 76 16 150/82 (104) 96 02/25/18 04:00 25 02/25/18 04:00 Bi-pap Bi-pap 02/25/18 02:49 75 16 98 Full Face 25 02/25/18 01:05 78 17 98 Full Face 25 02/25/18 00:00 25 02/25/18 00:00 98.5 77 16 138/74 (95) 96 02/25/18 00:00 82 02/25/18 00:00 Bi-pap Bi-pap 02/24/18 21:24 83 17 98 Full Face 25 02/24/18 20:00 Bi-pap Bi-pap 02/24/18 20:00 97.7 87 16 130/70 (90) 97 02/24/18 20:00 88 10/28/18 20:00 25 02/24/18 19:37 Bi-pap 25 02/24/18 19:36 98 Bi-pap 25 02/24/18 19:35 81 18 99 Full Face 25 02/24/18 17:21 83 17 98 Full Face 25 02/24/18 16:00 25 02/24/18 16:00 Bi-pap Bi-pap 02/24/18 16:00 98.3 81 17 137/72 (93) 95 02/24/18 16:00 80 02/24/18 14:58 91 21 97 Full Face 25 02/24/18 14:42 91 119/68 02/24/18 13:11 91 18 97 02/24/18 12:00 98.6 83 17 119/68 (85) 97 02/24/18 12:00 Nasal Cannula 3.0 Nasal Cannula 3.0 02/24/18 12:00 76 02/24/18 12:00 25 02/24/18 10:40 89 20 98 02/24/18 10:22 89 16 98 Nasal Cannula 2.0 02/24/18 10:11 88 20 98 Nasal Cannula 2.0 02/24/18 09:00 77 16 98 Facial 25 Labs: Laboratory Tests Test 02/25/18 04:00 White Blood Count 11.3 K/UL (4.8-10.8) H Red Blood Count 4.49 M/UL (4.20-5.40) Hemoglobin 12.8 G/DL (12.0-16.0) Hematocrit 40.5 % (37.0-47.0) Mean Corpuscular Volume 90 FL (80-99) Mean Corpuscular Hemoglobin 28.6 PG (27.0-31.0) Mean Corpuscular Hemoglobin Concent 31.7 G/DL (32.0-36.0) L Red Cell Distribution Width 14.1 % (11.6-14.8) Platelet Count 187 K/UL (150-450) Mean Platelet Volume 6.6 FL (6.5-10.1) Neutrophils (%) (Auto) 74.6 % (45.0-75.0) Lymphocytes (%) (Auto) 17.0 % (20.0-45.0) L Monocytes (%) (Auto) 5.9 % (1.0-10.0) Eosinophils (%) (Auto) 2.1 % (0.0-3.0) Basophils (%) (Auto) 0.4 % (0.0-2.0) Sodium Level 138 MMOL/L (136-145) Potassium Level 3.8 MMOL/L (3.5-5.1) Chloride Level 102 MMOL/L (98-107) Carbon Dioxide Level 33 MMOL/L (21-32) H Anion Gap 3 mmol/L (5-15) L Blood Urea Nitrogen 16 mg/dL (7-18) Creatinine 0.6 MG/DL (0.55-1.30) Estimat Glomerular Filtration Rate mL/min (>60) Glucose Level 77 MG/DL (74-106) Calcium Level 8.6 MG/DL (8.5-10.1) Magnesium Level 1.9 MG/DL (1.8-2.4) Total Bilirubin 0.5 MG/DL (0.2-1.0) Aspartate Amino Transf (AST/SGOT) 12 U/L (15-37) L Alanine Aminotransferase (ALT/SGPT) 16 U/L (12-78) Alkaline Phosphatase 69 U/L (46-116) Pro-B-Type Natriuretic Peptide 299 pg/mL (0-125) H Total Protein 5.7 G/DL (6.4-8.2) L Albumin 2.3 G/DL (3.4-5.0) L Globulin 3.4 g/dL Albumin/Globulin Ratio 0.7 (1.0-2.7) L Objective: GENERAL: sedated/withdrawn; on FN NECK: Supple. No adenopathy. No jugular venous distention. orally intubated LUNGS: Moderate breath sounds. occasional rhonchi. No wheezes. stable CARDIAC: S1 and S2. Regular rhythm without murmurs, rubs, or gallops. ABDOMEN: Soft, nontender, nondistended. no HSM; feeding tube in place EXTREMITIES: No cyanosis, clubbing; trace edema. NEUROLOGIC: Grossly nonfocal, reviewed and examined Accucheck: 140 Mk Billings MD Feb 25, 2018 08:14
[2018-02-25] MEDS: Pantoprazole Inj IVP SCH (09:02)
[2018-02-25] MEDS: dilTIAZem HCl CD 240mg cap ORAL SCH (09:03)
[2018-02-25] MEDS: Vitamin A&D Oint 2oz Tube TOPIC SCH ×2 (09:17→21:16)
--- NOTE | 2018-02-25 09:54 | Urology Progress Note ---
Assessment/Plan Assessment/Plan 1. Gross hematuria. 2. Urinary retention. 3. Probable neurogenic bladder. 4. Pyuria. 5. Proteinuria. 6. Possible hemorrhagic cystitis. monitor clinically arellano indwelling, hand irrigate PRN no active bleeding cont with abx as ordered off anticoagulation monitor h/h cysto later Subjective Allergies: Coded Allergies: No Known Allergies (Unverified , 12/10/15) Subjective all noted, comfortable Objective Last 24 Hour Vital Signs Date Time Temp Pulse Resp B/P (MAP) Pulse Ox O2 Delivery O2 Flow Rate FiO2 02/25/18 09:10 77 16 99 Full Face 25 02/25/18 09:03 78 126/68 02/25/18 08:57 85 16 96 Room Air 21 02/25/18 08:57 85 16 94 Room Air 21 02/25/18 07:07 69 16 99 Full Face 25 02/25/18 07:05 96 Bi-pap 25 02/25/18 07:05 Bi-pap 25 02/25/18 05:13 68 18 98 Full Face 25 02/25/18 04:00 82 02/25/18 04:00 97.6 76 16 150/82 (104) 96 02/25/18 04:00 25 02/25/18 04:00 Bi-pap Bi-pap 02/25/18 02:49 75 16 98 Full Face 25 02/25/18 01:05 78 17 98 Full Face 25 02/25/18 00:00 25 02/25/18 00:00 98.5 77 16 138/74 (95) 96 02/25/18 00:00 82 02/25/18 00:00 Bi-pap Bi-pap 02/24/18 21:24 83 17 98 Full Face 25 02/24/18 20:00 Bi-pap Bi-pap 02/24/18 20:00 97.7 87 16 130/70 (90) 97 02/24/18 20:00 88 02/24/18 20:00 25 02/24/18 19:37 Bi-pap 25 02/24/18 19:36 98 Bi-pap 25 02/24/18 19:35 81 18 99 Full Face 25 02/24/18 17:21 83 17 98 Full Face 25 02/24/18 16:00 25 02/24/18 16:00 Bi-pap Bi-pap 02/24/18 16:00 98.3 81 17 137/72 (93) 95 02/24/18 16:00 80 02/24/18 14:58 91 21 97 Full Face 25 02/24/18 14:42 91 119/68 02/24/18 13:11 91 18 97 02/24/18 12:00 98.6 83 17 119/68 (85) 97 02/24/18 12:00 Nasal Cannula 3.0 Nasal Cannula 3.0 02/24/18 12:00 76 02/24/18 12:00 25 02/24/18 10:40 89 20 98 02/24/18 10:22 89 16 98 Nasal Cannula 2.0 28 02/24/18 10:11 88 20 98 Nasal Cannula 2.0 28 Intake and Output 02/24/18 02/25/18 19:00 07:00 Intake Total 692.5 ml 477.5 ml Output Total 1300 ml 1300 ml Balance -607.5 ml -822.5 ml Intake Oral 500 ml 450 ml IV Total 192.5 ml 27.5 ml Output Urine Total 1300 ml 1300 ml # Bowel Movements 1 Microbiology Date/Time Source Procedure Growth Status 02/03/18 15:30 Blood Blood Culture - Final NO GROWTH AFTER 5 DAYS Complete 02/20/18 18:40 Stool Clostridium difficile Toxin Assay - Final Complete 02/20/18 12:50 Urine,Clean Catch Urine Culture - Final NO GROWTH AFTER 48 HOURS Complete 02/03/18 15:30 Rectal Mucosa - Final NO CARBAPENEM-RESISTANT ENTEROBACTERI... Complete Current Medications Medications (Trade) Dose Ordered Sig/Isabella Route PRN Reason Start Time Stop Time Status Last Admin Dose Admin Acetaminophen (Tylenol) 650 mg Q6H PRN ORAL Mild Pain/Temp > 100.5 02/19/18 10:30 03/05/18 16:29 02/22/18 04:39 Acyclovir (Zovirax) 800 mg EVERY 6 HOURS ORAL 02/20/18 12:30 03/01/18 23:00 02/25/18 05:55 Bisacodyl (Dulcolax) 10 mg DAILYPRN PRN RECTAL Constipation 02/19/18 10:30 03/14/18 10:29 Clonidine HCl (Catapres Tab) 0.1 mg Q4H PRN ORAL SBP above 150 02/19/18 10:30 03/21/18 10:29 Diltiazem HCl (Cardizem CD) 240 mg DAILY ORAL 02/25/18 09:00 03/27/18 08:59 02/25/18 09:03 Diphenhydramine HCl (Benadryl) 25 mg Q6H PRN ORAL Itching 02/19/18 11:00 03/05/18 16:59 Fluoxetine HCl (PROzac) 20 mg DAILY ORAL 02/20/18 09:00 03/06/18 08:59 02/25/18 09:02 Furosemide (Lasix) 20 mg DAILY IV 02/21/18 09:00 03/23/18 08:59 02/25/18 09:02 Pantoprazole (Protonix) 40 mg DAILY IVP 02/20/18 09:00 03/20/18 08:59 02/25/18 09:02 Piperacillin Sod/ Tazobactam Sod 3.375 gm/Dextrose 110 ml @ 27.5 mls/hr EVERY 8 HOURS IVPB 02/19/18 14:00 02/25/18 23:59 02/25/18 05:55 Prednisone (predniSONE) 20 mg DAILY ORAL 02/21/18 09:00 03/23/18 08:59 02/25/18 09:03 Tiotropium [place] (Spiriva Inhaler) 1 puff DAILY INH 02/20/18 09:00 03/06/18 08:59 02/25/18 08:57 Vitamin A/Vitamin D (A & D Oint) 1 applic EVERY 12 HOURS TOPIC 02/19/18 21:00 03/21/18 20:59 02/25/18 09:17 Laboratory Tests 02/25/18 04:00: White Blood Count 11.3H, Red Blood Count 4.49, Hemoglobin 12.8, Hematocrit 40.5 , Mean Corpuscular Volume 90, Mean Corpuscular Hemoglobin 28.6, Mean Corpuscular Hemoglobin Concent 31.7L, Red Cell Distribution Width 14.1, Platelet Count 187, Mean Platelet Volume 6.6, Neutrophils (%) (Auto) 74.6, Lymphocytes (%) (Auto) 17.0L, Monocytes (%) (Auto) 5.9, Eosinophils (%) (Auto) 2.1, Basophils (%) (Auto) 0.4, Sodium Level 138, Potassium Level 3.8, Chloride Level 102, Carbon Dioxide Level 33H, Anion Gap 3L, Blood Urea Nitrogen 16, Creatinine 0.6, Estimat Glomerular Filtration Rate , Glucose Level 77, Calcium Level 8.6, Magnesium Level 1.9, Total Bilirubin 0.5, Aspartate Amino Transf (AST /SGOT) 12L, Alanine Aminotransferase (ALT/SGPT) 16, Alkaline Phosphatase 69, Pro -B-Type Natriuretic Peptide 299H, Total Protein 5.7L, Albumin 2.3L, Globulin 3.4 , Albumin/Globulin Ratio 0.7L Height (Feet): 5 Height (Inches): 6.00 Weight (Pounds): 207 Objective exam stable, urine clearing renal u/s (02/19) noted LOIS ESPARZA Feb 25, 2018 09:54
--- NOTE | 2018-02-25 11:50 | Infectious Diseases Prog Note ---
Assessment/Plan Assessment/Plan antibiotics : zosyn A 1. pneumonia improving 2. head lice improving 3. COPD 4. ? zoster 5. respiratory failure P 1. continue zosyn 2. continue acyclovir 4 more days 3. will follow up cultures Subjective ROS Limited/Unobtainable: Yes Allergies: Coded Allergies: No Known Allergies (Unverified , 12/10/15) Objective Vital Signs Last 24 Hour Vital Signs Date Time Temp Pulse Resp B/P (MAP) Pulse Ox O2 Delivery O2 Flow Rate FiO2 02/25/18 10:31 72 16 99 Full Face 25 02/25/18 09:10 77 16 99 Full Face 25 02/25/18 09:03 78 126/68 02/25/18 08:57 85 16 96 Room Air 21 02/25/18 08:57 85 16 94 Room Air 21 02/25/18 08:00 25 02/25/18 08:00 89 02/25/18 08:00 Bi-pap Bi-pap 02/25/18 08:00 97.7 75 18 126/68 (87) 95 02/25/18 07:07 69 16 99 Full Face 25 02/25/18 07:05 96 Bi-pap 25 02/25/18 07:05 Bi-pap 25 02/25/18 05:13 68 18 98 Full Face 25 02/25/18 04:00 82 02/25/18 04:00 97.6 76 16 150/82 (104) 96 02/25/18 04:00 25 02/25/18 04:00 Bi-pap Bi-pap 02/25/18 02:49 75 16 98 Full Face 25 02/25/18 01:05 78 17 98 Full Face 25 02/25/18 00:00 25 02/25/18 00:00 98.5 77 16 138/74 (95) 96 02/25/18 00:00 82 02/25/18 00:00 Bi-pap Bi-pap 02/24/18 21:24 83 17 98 Full Face 25 02/24/18 20:00 Bi-pap Bi-pap 02/24/18 20:00 97.7 87 16 130/70 (90) 97 02/24/18 20:00 88 02/24/18 20:00 25 02/24/18 19:37 Bi-pap 25 02/24/18 19:36 98 Bi-pap 25 02/24/18 19:35 81 18 99 Full Face 25 02/24/18 17:21 83 17 98 Full Face 25 02/24/18 16:00 25 02/24/18 16:00 Bi-pap Bi-pap 02/24/18 16:00 98.3 81 17 137/72 (93) 95 02/24/18 16:00 80 02/24/18 14:58 91 21 97 Full Face 25 02/24/18 14:42 91 119/68 02/24/18 13:11 91 18 97 02/24/18 12:00 98.6 83 17 119/68 (85) 97 02/24/18 12:00 Nasal Cannula 3.0 Nasal Cannula 3.0 02/24/18 12:00 76 02/24/18 12:00 25 Height (Feet): 5 Height (Inches): 6.00 Weight (Pounds): 207 HEENT: other - on bipap Respiratory/Chest: lungs clear Cardiovascular: normal rate, regular rhythm, no gallop/murmur Abdomen: soft, non tender Extremities: no edema Laboratory Tests Test 02/25/18 04:00 White Blood Count 11.3 K/UL (4.8-10.8) H Red Blood Count 4.49 M/UL (4.20-5.40) Hemoglobin 12.8 G/DL (12.0-16.0) Hematocrit 40.5 % (37.0-47.0) Mean Corpuscular Volume 90 FL (80-99) Mean Corpuscular Hemoglobin 28.6 PG (27.0-31.0) Mean Corpuscular Hemoglobin Concent 31.7 G/DL (32.0-36.0) L Red Cell Distribution Width 14.1 % (11.6-14.8) Platelet Count 187 K/UL (150-450) Mean Platelet Volume 6.6 FL (6.5-10.1) Neutrophils (%) (Auto) 74.6 % (45.0-75.0) Lymphocytes (%) (Auto) 17.0 % (20.0-45.0) L Monocytes (%) (Auto) 5.9 % (1.0-10.0) Eosinophils (%) (Auto) 2.1 % (0.0-3.0) Basophils (%) (Auto) 0.4 % (0.0-2.0) Sodium Level 138 MMOL/L (136-145) Potassium Level 3.8 MMOL/L (3.5-5.1) Chloride Level 102 MMOL/L (98-107) Carbon Dioxide Level 33 MMOL/L (21-32) H Anion Gap 3 mmol/L (5-15) L Blood Urea Nitrogen 16 mg/dL (7-18) Creatinine 0.6 MG/DL (0.55-1.30) Estimat Glomerular Filtration Rate mL/min (>60) Glucose Level 77 MG/DL (74-106) Calcium Level 8.6 MG/DL (8.5-10.1) Magnesium Level 1.9 MG/DL (1.8-2.4) Total Bilirubin 0.5 MG/DL (0.2-1.0) Aspartate Amino Transf (AST/SGOT) 12 U/L (15-37) L Alanine Aminotransferase (ALT/SGPT) 16 U/L (12-78) Alkaline Phosphatase 69 U/L (46-116) Pro-B-Type Natriuretic Peptide 299 pg/mL (0-125) H Total Protein 5.7 G/DL (6.4-8.2) L Albumin 2.3 G/DL (3.4-5.0) L Globulin 3.4 g/dL Albumin/Globulin Ratio 0.7 (1.0-2.7) L Current Medications Medications (Trade) Dose Ordered Sig/Isabella Route PRN Reason Start Time Stop Time Status Last Admin Dose Admin Acetaminophen (Tylenol) 650 mg Q6H PRN ORAL Mild Pain/Temp > 100.5 02/19/18 10:30 03/05/18 16:29 02/22/18 04:39 Acyclovir (Zovirax) 800 mg EVERY 6 HOURS ORAL 02/20/18 12:30 03/01/18 23:00 02/25/18 05:55 Bisacodyl (Dulcolax) 10 mg DAILYPRN PRN RECTAL Constipation 02/19/18 10:30 03/14/18 10:29 Clonidine HCl (Catapres Tab) 0.1 mg Q4H PRN ORAL SBP above 150 02/19/18 10:30 03/21/18 10:29 Diltiazem HCl (Cardizem CD) 240 mg DAILY ORAL 02/25/18 09:00 03/27/18 08:59 02/25/18 09:03 Diphenhydramine HCl (Benadryl) 25 mg Q6H PRN ORAL Itching 02/19/18 11:00 03/05/18 16:59 Fluoxetine HCl (PROzac) 20 mg DAILY ORAL 02/20/18 09:00 03/06/18 08:59 02/25/18 09:02 Furosemide (Lasix) 20 mg DAILY IV 02/21/18 09:00 03/23/18 08:59 02/25/18 09:02 Pantoprazole (Protonix) 40 mg DAILY IVP 02/20/18 09:00 03/20/18 08:59 02/25/18 09:02 Piperacillin Sod/ Tazobactam Sod 3.375 gm/Dextrose 110 ml @ 27.5 mls/hr EVERY 8 HOURS IVPB 02/19/18 14:00 02/25/18 23:59 02/25/18 05:55 Prednisone (predniSONE) 20 mg DAILY ORAL 02/21/18 09:00 03/23/18 08:59 02/25/18 09:03 Tiotropium [place] (Spiriva Inhaler) 1 puff DAILY INH 02/20/18 09:00 03/06/18 08:59 02/25/18 08:57 Vitamin A/Vitamin D (A & D Oint) 1 applic EVERY 12 HOURS TOPIC 02/19/18 21:00 03/21/18 20:59 02/25/18 09:17 Radha Macias MD Feb 25, 2018 11:50
[2018-02-25 12:00] VITALS: BP 131/78
[2018-02-25 16:00] VITALS: BP 130/79
[2018-02-25 20:00] VITALS: BP 134/72
[2018-02-26] VITALS: BP 128/73
[2018-02-26 04:00] VITALS: BP 122/78
[2018-02-26] MEDS: Piperacillin/Tazobactam 3.375 GM in D5W 110 ML IVPB SCH (05:02)
[2018-02-26 08:00] VITALS: BP 115/56
--- NOTE | 2018-02-26 08:02 | General Progress Note ---
Assessment/Plan Problem List: (1) COPD exacerbation ICD Codes: J44.1 - Chronic obstructive pulmonary disease with (acute) exacerbation SNOMED: 232938634 (2) HTN (hypertension) ICD Codes: I10 - Essential (primary) hypertension SNOMED: 65101212 (3) Hypoxia ICD Codes: R09.02 - Hypoxemia SNOMED: 380372588 (4) Elevated troponin ICD Codes: R74.8 - Abnormal levels of other serum enzymes SNOMED: 971676633, 267503555, 906529304 (5) Renal insufficiency ICD Codes: N28.9 - Disorder of kidney and ureter, unspecified SNOMED: 735388917, 863240723 (6) Respiratory failure ICD Codes: J96.90 - Respiratory failure, unspecified, unspecified whether with hypoxia or hypercapnia SNOMED: 416849686 Qualifiers: Qualified Codes: J96.02 - Acute respiratory failure with hypercapnia (7) Right lower lobe pneumonia ICD Codes: J18.1 - Lobar pneumonia, unspecified organism SNOMED: 316142006 Qualifiers: Qualified Codes: J18.1 - Lobar pneumonia, unspecified organism Status: stable, progressing Assessment/Plan resp rx o2 iv abx per id zoster rx monitor cxr po steroids bipap per pulm(try nocturnal) keep dry ID appreciated guarded refer to ltach Subjective ROS Limited/Unobtainable: Yes Constitutional: Reports: malaise, weakness HEENT: Reports: no symptoms Cardiovascular: Reports: no symptoms Respiratory: Reports: shortness of breath, SOB at rest Gastrointestinal/Abdominal: Reports: no symptoms Genitourinary: Reports: no symptoms Neurologic/Psychiatric: Reports: no symptoms Endocrine: Reports: no symptoms Hematologic/Lymphatic: Reports: anemia Allergies: Coded Allergies: No Known Allergies (Unverified , 12/10/15) All Systems: reviewed and negative except above Subjective no complaints. remains on bipap at night. per staff stable on nasal cannula during the day yesterday. denies sob. no overnight events. Objective Last 24 Hour Vital Signs Date Time Temp Pulse Resp B/P (MAP) Pulse Ox O2 Delivery O2 Flow Rate FiO2 02/26/18 07:22 71 16 95 Full Face 25 02/26/18 07:15 Bi-pap 25 02/26/18 07:15 97 Bi-pap 25 02/26/18 05:30 72 16 95 Full Face 25 02/26/18 04:00 98.3 78 16 122/78 (93) 97 02/26/18 04:00 Bi-pap Bi-pap 02/26/18 04:00 25 02/26/18 04:00 72 02/26/18 02:30 70 16 96 Full Face 25 02/26/18 00:00 98.1 84 18 128/73 (91) 99 02/26/18 00:00 2.0 02/26/18 00:00 71 02/26/18 00:00 Bi-pap Bi-pap 02/25/18 21:15 95 2.0 28 02/25/18 20:00 103 02/25/18 20:00 Nasal Cannula 2.0 28 02/25/18 20:00 2.0 02/25/18 20:00 Bi-pap Bi-pap 02/25/18 20:00 98.4 92 16 134/72 (92) 99 02/25/18 19:30 94 2.0 28 02/25/18 19:30 96 Nasal Cannula 2.0 28 02/25/18 17:30 97 02/25/18 17:27 88 02/25/18 16:00 2.0 02/25/18 16:00 Bi-pap Bi-pap 02/25/18 16:00 99.0 78 18 130/79 (96) 98 02/25/18 14:51 94 02/25/18 12:51 99 02/25/18 12:50 78 16 97 Full Face 25 02/25/18 12:00 Bi-pap Bi-pap 02/25/18 12:00 97.5 83 18 131/78 (95) 96 02/25/18 12:00 79 02/25/18 12:00 25 02/25/18 10:31 72 16 99 Full Face 25 02/25/18 09:10 77 16 99 Full Face 25 02/25/18 09:03 78 126/68 02/25/18 08:57 85 16 96 Room Air 21 02/25/18 08:57 85 16 94 Room Air 21 02/25/18 08:00 25 02/25/18 08:00 89 02/25/18 08:00 Bi-pap Bi-pap 02/25/18 08:00 97.7 75 18 126/68 (87) 95 Intake and Output 02/25/18 02/26/18 19:00 07:00 Intake Total 840.0 ml 137.5 ml Output Total 2100 ml 950 ml Balance -1260.0 ml -812.5 ml Intake Oral 620 ml IV Total 220.0 ml 137.5 ml Output Urine Total 2100 ml 950 ml # Bowel Movements 2 Height (Feet): 5 Height (Inches): 6.00 Weight (Pounds): 206 Objective General Appearance: WD/WN, resting. on bipap, opens eyes. alert. follows commands Neck: supple Cardiovascular: regular rhythm Respiratory/Chest: lungs mostly clear, few rhonchi Abdomen: normal bowel sounds, non tender, soft, no organomegaly Edema: no edema noted Arm (L), no edema noted Arm (R), no edema noted Leg (L), no edema noted Leg (R), no edema noted Pedal (L), no edema noted Pedal (R), no edema noted Generalized Manan Byrd MD Feb 26, 2018 08:02
[2018-02-26] MEDS: Pantoprazole Inj IVP SCH (09:18)
[2018-02-26] MEDS: dilTIAZem HCl CD 240mg cap ORAL SCH (09:26)
[2018-02-26] MEDS: Vitamin A&D Oint 2oz Tube TOPIC SCH ×2 (09:27→20:13)
--- NOTE | 2018-02-26 09:37 | Urology Progress Note ---
Assessment/Plan Assessment/Plan 1. Gross hematuria, improved. 2. Urinary retention. 3. Probable neurogenic bladder. 4. Pyuria. 5. Proteinuria. 6. Possible hemorrhagic cystitis. monitor clinically arellano indwelling, hand irrigate PRN no active bleeding cont with abx as ordered off anticoagulation monitor h/h cysto later dc arellano soon? Subjective Allergies: Coded Allergies: No Known Allergies (Unverified , 12/10/15) Subjective all noted, comfortable Objective Last 24 Hour Vital Signs Date Time Temp Pulse Resp B/P (MAP) Pulse Ox O2 Delivery O2 Flow Rate FiO2 02/26/18 09:26 75 115/56 02/26/18 07:22 71 16 95 Full Face 25 02/26/18 07:15 Bi-pap 25 02/26/18 07:15 97 Bi-pap 25 02/26/18 05:30 72 16 95 Full Face 25 02/26/18 04:00 98.3 78 16 122/78 (93) 97 02/26/18 04:00 Bi-pap Bi-pap 02/26/18 04:00 25 02/26/18 04:00 72 02/26/18 02:30 70 16 96 Full Face 25 02/26/18 00:00 98.1 84 18 128/73 (91) 99 02/26/18 00:00 2.0 02/26/18 00:00 71 02/26/18 00:00 Bi-pap Bi-pap 02/25/18 21:15 95 2.0 28 02/25/18 20:00 103 02/25/18 20:00 Nasal Cannula 2.0 28 02/25/18 20:00 2.0 02/25/18 20:00 Bi-pap Bi-pap 02/25/18 20:00 98.4 92 16 134/72 (92) 99 02/25/18 19:30 94 2.0 28 02/25/18 19:30 96 Nasal Cannula 2.0 28 02/25/18 17:30 97 02/25/18 17:27 88 02/25/18 16:00 2.0 02/25/18 16:00 Bi-pap Bi-pap 02/25/18 16:00 99.0 78 18 130/79 (96) 98 02/25/18 14:51 94 02/25/18 12:51 99 02/25/18 12:50 78 16 97 Full Face 25 02/25/18 12:00 Bi-pap Bi-pap 02/25/18 12:00 97.5 83 18 131/78 (95) 96 02/25/18 12:00 79 02/25/18 12:00 25 02/25/18 10:31 72 16 99 Full Face 25 Intake and Output 02/25/18 02/26/18 19:00 07:00 Intake Total 840.0 ml 137.5 ml Output Total 2100 ml 950 ml Balance -1260.0 ml -812.5 ml Intake Oral 620 ml IV Total 220.0 ml 137.5 ml Output Urine Total 2100 ml 950 ml # Bowel Movements 2 Microbiology Date/Time Source Procedure Growth Status 02/03/18 15:30 Blood Blood Culture - Final NO GROWTH AFTER 5 DAYS Complete 02/20/18 18:40 Stool Clostridium difficile Toxin Assay - Final Complete 02/20/18 12:50 Urine,Clean Catch Urine Culture - Final NO GROWTH AFTER 48 HOURS Complete 02/03/18 15:30 Rectal Mucosa - Final NO CARBAPENEM-RESISTANT ENTEROBACTERI... Complete Current Medications Medications (Trade) Dose Ordered Sig/Isabella Route PRN Reason Start Time Stop Time Status Last Admin Dose Admin Acetaminophen (Tylenol) 650 mg Q6H PRN ORAL Mild Pain/Temp > 100.5 02/19/18 10:30 03/05/18 16:29 02/22/18 04:39 Acyclovir (Zovirax) 800 mg EVERY 6 HOURS ORAL 02/20/18 12:30 03/01/18 23:00 02/26/18 05:02 Bisacodyl (Dulcolax) 10 mg DAILYPRN PRN RECTAL Constipation 02/19/18 10:30 03/14/18 10:29 Clonidine HCl (Catapres Tab) 0.1 mg Q4H PRN ORAL SBP above 150 02/19/18 10:30 03/21/18 10:29 Diltiazem HCl (Cardizem CD) 240 mg DAILY ORAL 02/25/18 09:00 03/27/18 08:59 02/26/18 09:26 Diphenhydramine HCl (Benadryl) 25 mg Q6H PRN ORAL Itching 02/19/18 11:00 03/05/18 16:59 Fluoxetine HCl (PROzac) 20 mg DAILY ORAL 02/20/18 09:00 03/06/18 08:59 02/26/18 09:26 Furosemide (Lasix) 20 mg DAILY IV 02/21/18 09:00 03/23/18 08:59 02/26/18 09:19 Pantoprazole (Protonix) 40 mg DAILY IVP 02/20/18 09:00 03/20/18 08:59 02/26/18 09:18 Piperacillin Sod/ Tazobactam Sod 3.375 gm/Dextrose 110 ml @ 27.5 mls/hr EVERY 8 HOURS IVPB 02/25/18 14:00 03/03/18 23:59 02/26/18 05:02 Prednisone (predniSONE) 20 mg DAILY ORAL 02/21/18 09:00 03/23/18 08:59 02/26/18 09:26 Tiotropium [place] (Spiriva Inhaler) 1 puff DAILY INH 02/20/18 09:00 03/06/18 08:59 02/25/18 08:57 Vitamin A/Vitamin D (A & D Oint) 1 applic EVERY 12 HOURS TOPIC 02/19/18 21:00 03/21/18 20:59 02/26/18 09:27 Height (Feet): 5 Height (Inches): 6.00 Weight (Pounds): 206 Objective exam stable, urine clearing renal u/s (02/19) noted LOIS ESPARZA Feb 26, 2018 09:37
--- NOTE | 2018-02-26 11:54 | Infectious Diseases Prog Note ---
Assessment/Plan Assessment/Plan A; Head lice treated COPD Pneumonia treated Anemia Hypercapnic respiratory failure resolving ? herpes zoster P: discontinue Zosyn continue acyclovir 3 more days Subjective ROS Limited/Unobtainable: No Constitutional: Reports: no symptoms Respiratory: Reports: dry cough Cardiovascular: Reports: no symptoms Gastrointestinal/Abdominal: Reports: no symptoms Genitourinary: Reports: no symptoms Allergies: Coded Allergies: No Known Allergies (Unverified , 12/10/15) Objective Vital Signs Last 24 Hour Vital Signs Date Time Temp Pulse Resp B/P (MAP) Pulse Ox O2 Delivery O2 Flow Rate FiO2 02/26/18 11:25 82 18 97 Nasal Cannula 2.0 28 02/26/18 11:25 83 18 97 Nasal Cannula 2.0 28 02/26/18 09:26 75 115/56 02/26/18 07:47 80 02/26/18 07:22 71 16 95 Full Face 25 02/26/18 07:15 Bi-pap 25 02/26/18 07:15 97 Bi-pap 25 02/26/18 05:30 72 16 95 Full Face 25 02/26/18 04:00 98.3 78 16 122/78 (93) 97 02/26/18 04:00 Bi-pap Bi-pap 02/26/18 04:00 25 02/26/18 04:00 72 02/26/18 02:30 70 16 96 Full Face 25 02/26/18 00:00 98.1 84 18 128/73 (91) 99 02/26/18 00:00 2.0 02/26/18 00:00 71 02/26/18 00:00 Bi-pap Bi-pap 02/25/18 21:15 95 2.0 28 02/25/18 20:00 103 02/25/18 20:00 Nasal Cannula 2.0 28 02/25/18 20:00 2.0 02/25/18 20:00 Bi-pap Bi-pap 02/25/18 20:00 98.4 92 16 134/72 (92) 99 02/25/18 19:30 94 2.0 28 02/25/18 19:30 96 Nasal Cannula 2.0 28 02/25/18 17:30 97 02/25/18 17:27 88 02/25/18 16:00 2.0 02/25/18 16:00 Bi-pap Bi-pap 02/25/18 16:00 99.0 78 18 130/79 (96) 98 02/25/18 14:51 94 02/25/18 12:51 99 02/25/18 12:50 78 16 97 Full Face 25 02/25/18 12:00 Bi-pap Bi-pap 02/25/18 12:00 97.5 83 18 131/78 (95) 96 02/25/18 12:00 79 02/25/18 12:00 25 Height (Feet): 5 Height (Inches): 6.00 Weight (Pounds): 206 HEENT: mucous membranes moist Respiratory/Chest: lungs clear Cardiovascular: normal rate Abdomen: soft, non tender Extremities: no edema Skin: ulcers Neurologic/Psychiatric: alert, responsive Laboratory Tests Test 02/26/18 04:00 Arterial Blood pH 7.424 (7.350-7.450) Arterial Blood Partial Pressure CO2 55.0 mmHg (35.0-45.0) H Arterial Blood Partial Pressure O2 122.8 mmHg (75.0-100.0) H Arterial Blood HCO3 35.2 mmol/L (22.0-26.0) H Arterial Blood Oxygen Saturation 98.2 % (95-100) Arterial Blood Base Excess 9.0 (-2-2) H Tarun Test Positive Current Medications Medications (Trade) Dose Ordered Sig/Isabella Route PRN Reason Start Time Stop Time Status Last Admin Dose Admin Acetaminophen (Tylenol) 650 mg Q6H PRN ORAL Mild Pain/Temp > 100.5 02/19/18 10:30 03/05/18 16:29 02/22/18 04:39 Acyclovir (Zovirax) 800 mg EVERY 6 HOURS ORAL 02/20/18 12:30 03/01/18 23:00 02/26/18 05:02 Bisacodyl (Dulcolax) 10 mg DAILYPRN PRN RECTAL Constipation 02/19/18 10:30 03/14/18 10:29 Clonidine HCl (Catapres Tab) 0.1 mg Q4H PRN ORAL SBP above 150 02/19/18 10:30 03/21/18 10:29 Diltiazem HCl (Cardizem CD) 240 mg DAILY ORAL 02/25/18 09:00 03/27/18 08:59 02/26/18 09:26 Diphenhydramine HCl (Benadryl) 25 mg Q6H PRN ORAL Itching 02/19/18 11:00 03/05/18 16:59 Fluoxetine HCl (PROzac) 20 mg DAILY ORAL 02/20/18 09:00 03/06/18 08:59 02/26/18 09:26 Furosemide (Lasix) 20 mg DAILY IV 02/21/18 09:00 03/23/18 08:59 02/26/18 09:19 Pantoprazole (Protonix) 40 mg DAILY IVP 02/20/18 09:00 03/20/18 08:59 02/26/18 09:18 Piperacillin Sod/ Tazobactam Sod 3.375 gm/Dextrose 110 ml @ 27.5 mls/hr EVERY 8 HOURS IVPB 02/25/18 14:00 03/03/18 23:59 02/26/18 05:02 Prednisone (predniSONE) 20 mg DAILY ORAL 02/21/18 09:00 03/23/18 08:59 02/26/18 09:26 Tiotropium [place] (Spiriva Inhaler) 1 puff DAILY INH 02/20/18 09:00 03/06/18 08:59 02/26/18 09:00 Vitamin A/Vitamin D (A & D Oint) 1 applic EVERY 12 HOURS TOPIC 02/19/18 21:00 03/21/18 20:59 02/26/18 09:27 Amado Estrella MD Feb 26, 2018 11:54
--- NOTE | 2018-02-26 11:59 | Diagnostic Imaging Report ---
Indication: Dyspnea Comparison: 02/23/2018 A single view chest radiograph was obtained. Findings: There is suggestion of left basal atelectasis and a small effusion. Heart is enlarged. Bones are slightly osteopenic. IMPRESSION: No significant change from the prior exam
[2018-02-26 12:00] VITALS: BP 116/52
--- NOTE | 2018-02-26 12:22 | Critical Care Progress Note ---
Assessment/Plan Assessment/Plan IMPRESSION: Acute on chronic respiratory failure, COPD with acute exacerbation, chronic respiratory acidosis and associated hypoxemia, cardiomegaly, pleural effusion and pulmonary edema, protein-calorie malnutrition. PLAN monitor as is respiratory care reviewed supportive care as able monitor closely for now and use BIPAP QHS as tolerated guarded feeds position change and monitor for change skin monitoring DVT prophylaxis monitor acid base possible LTAC ABG stable medications/laboratory data/nursing notes reviewed in detail note reviewed and edited care discussed with RN and RT Critical Care - Subjective Interval Events: comfortable overall no distress on oxygen RT notes reviewed ROS Limited/Unobtainable: Yes Condition: stable EKG Rhythm: Sinus Rhythm I&O: Intake and Output 02/25/18 02/26/18 19:00 07:00 Intake Total 840.0 ml 137.5 ml Output Total 2100 ml 950 ml Balance -1260.0 ml -812.5 ml Intake Oral 620 ml IV Total 220.0 ml 137.5 ml Output Urine Total 2100 ml 950 ml # Bowel Movements 2 Critical Care - Objective CXR: stable overall ET-Tube: 7.5 ET Position: 24 Last 24 Hour Vital Signs Date Time Temp Pulse Resp B/P (MAP) Pulse Ox O2 Delivery O2 Flow Rate FiO2 02/26/18 12:07 Bi-pap Bi-pap 02/26/18 12:00 98.2 77 20 116/52 (73) 97 02/26/18 11:25 82 18 97 Nasal Cannula 2.0 28 02/26/18 11:25 83 18 97 Nasal Cannula 2.0 28 02/26/18 09:26 75 115/56 02/26/18 08:00 98.8 75 18 115/56 (75) 100 02/26/18 08:00 Bi-pap Bi-pap 02/26/18 07:47 80 02/26/18 07:22 71 16 95 Full Face 25 02/26/18 07:15 Bi-pap 25 02/26/18 07:15 97 Bi-pap 25 02/26/18 05:30 72 16 95 Full Face 25 02/26/18 04:00 98.3 78 16 122/78 (93) 97 02/26/18 04:00 Bi-pap Bi-pap 02/26/18 04:00 25 02/26/18 04:00 72 02/26/18 02:30 70 16 96 Full Face 25 02/26/18 00:00 98.1 84 18 128/73 (91) 99 02/26/18 00:00 2.0 02/26/18 00:00 71 02/26/18 00:00 Bi-pap Bi-pap 02/25/18 21:15 95 2.0 28 02/25/18 20:00 103 02/25/18 20:00 Nasal Cannula 2.0 28 02/25/18 20:00 2.0 02/25/18 20:00 Bi-pap Bi-pap 02/25/18 20:00 98.4 92 16 134/72 (92) 99 02/25/18 19:30 94 2.0 28 02/25/18 19:30 96 Nasal Cannula 2.0 28 02/25/18 17:30 97 02/25/18 17:27 88 02/25/18 16:00 2.0 02/25/18 16:00 Bi-pap Bi-pap 02/25/18 16:00 99.0 78 18 130/79 (96) 98 02/25/18 14:51 94 02/25/18 12:51 99 02/25/18 12:50 78 16 97 Full Face 25 Labs: Laboratory Tests Test 02/26/18 04:00 Arterial Blood pH 7.424 (7.350-7.450) Arterial Blood Partial Pressure CO2 55.0 mmHg (35.0-45.0) H Arterial Blood Partial Pressure O2 122.8 mmHg (75.0-100.0) H Arterial Blood HCO3 35.2 mmol/L (22.0-26.0) H Arterial Blood Oxygen Saturation 98.2 % (95-100) Arterial Blood Base Excess 9.0 (-2-2) H Tarun Test Positive Objective: GENERAL: awake; no distress; on oxygen NECK: Supple. No adenopathy. No jugular venous distention. orally intubated LUNGS: Moderate breath sounds. minimal rhonchi. No wheezes. stable CARDIAC: S1 and S2. Regular rhythm without murmurs, rubs, or gallops. ABDOMEN: Soft, nontender, nondistended. no HSM; feeding tube in place EXTREMITIES: No cyanosis, clubbing; trace edema. NEUROLOGIC: Grossly nonfocal, reviewed and examined Accucheck: 140 Mk Billings MD Feb 26, 2018 12:22
[2018-02-26] MEDS ORDERED: NS 275ml ONE (15:17)
[2018-02-26 16:00] VITALS: BP 125/65
[2018-02-26 20:00] VITALS: BP 136/70
[2018-02-27] VITALS: BP 135/82
[2018-02-27 04:00] VITALS: BP 132/76
[2018-02-27 08:00] VITALS: BP 123/67
--- NOTE | 2018-02-27 09:11 | Urology Progress Note ---
Assessment/Plan Assessment/Plan 1. Gross hematuria, improved. 2. Urinary retention. 3. Probable neurogenic bladder. 4. Pyuria. 5. Proteinuria. 6. Possible hemorrhagic cystitis. monitor clinically arellano indwelling, hand irrigate PRN no active bleeding cont with abx as ordered off anticoagulation monitor h/h cysto later prob ok to dc arellano d/w Dr. Byrd Subjective Allergies: Coded Allergies: No Known Allergies (Unverified , 12/10/15) Subjective all noted, comfortable Objective Last 24 Hour Vital Signs Date Time Temp Pulse Resp B/P (MAP) Pulse Ox O2 Delivery O2 Flow Rate FiO2 02/27/18 09:03 74 02/27/18 08:00 98.1 85 20 123/67 (85) 98 02/27/18 06:40 Nasal Cannula 2.0 28 02/27/18 06:40 95 Nasal Cannula 2.0 28 02/27/18 05:37 67 18 97 2.0 28 02/27/18 04:00 98.1 76 18 132/76 (94) 98 02/27/18 04:00 92 02/27/18 04:00 Bi-pap Bi-pap 02/27/18 03:04 72 16 97 Facial 30 02/27/18 01:36 74 16 98 Facial 30 02/27/18 00:00 97.9 72 16 135/82 (99) 99 02/27/18 00:00 68 02/27/18 00:00 Bi-pap Bi-pap 02/26/18 22:50 78 16 97 Facial 30 02/26/18 20:00 77 02/26/18 20:00 98.6 74 16 136/70 (92) 97 02/26/18 20:00 Bi-pap Bi-pap 02/26/18 19:00 Nasal Cannula 2.0 28 02/26/18 19:00 96 Nasal Cannula 2.0 28 02/26/18 16:00 98.1 88 20 125/65 (85) 96 02/26/18 16:00 Bi-pap Bi-pap 02/26/18 16:00 75 02/26/18 12:07 Bi-pap Bi-pap 02/26/18 12:00 98.2 77 20 116/52 (73) 97 02/26/18 11:37 81 02/26/18 11:25 82 18 97 Nasal Cannula 2.0 28 02/26/18 11:25 83 18 97 Nasal Cannula 2.0 28 02/26/18 09:26 75 115/56 Intake and Output 02/26/18 02/27/18 19:00 07:00 Intake Total 1200 ml Output Total 1400 ml 900 ml Balance -200 ml -900 ml Intake Oral 1200 ml Output Urine Total 1400 ml 900 ml # Bowel Movements 2 Microbiology Date/Time Source Procedure Growth Status 02/03/18 15:30 Blood Blood Culture - Final NO GROWTH AFTER 5 DAYS Complete 02/20/18 18:40 Stool Clostridium difficile Toxin Assay - Final Complete 02/20/18 12:50 Urine,Clean Catch Urine Culture - Final NO GROWTH AFTER 48 HOURS Complete 02/03/18 15:30 Rectal Mucosa - Final NO CARBAPENEM-RESISTANT ENTEROBACTERI... Complete Current Medications Medications (Trade) Dose Ordered Sig/Isabella Route PRN Reason Start Time Stop Time Status Last Admin Dose Admin Acetaminophen (Tylenol) 650 mg Q6H PRN ORAL Mild Pain/Temp > 100.5 02/19/18 10:30 03/05/18 16:29 02/22/18 04:39 Acyclovir (Zovirax) 800 mg EVERY 6 HOURS ORAL 02/20/18 12:30 03/01/18 23:00 02/27/18 05:43 Bisacodyl (Dulcolax) 10 mg DAILYPRN PRN RECTAL Constipation 02/19/18 10:30 03/14/18 10:29 Clonidine HCl (Catapres Tab) 0.1 mg Q4H PRN ORAL SBP above 150 02/19/18 10:30 03/21/18 10:29 Diltiazem HCl (Cardizem CD) 240 mg DAILY ORAL 02/25/18 09:00 03/27/18 08:59 02/26/18 09:26 Diphenhydramine HCl (Benadryl) 25 mg Q6H PRN ORAL Itching 02/19/18 11:00 03/05/18 16:59 Fluoxetine HCl (PROzac) 20 mg DAILY ORAL 02/20/18 09:00 03/06/18 08:59 02/26/18 09:26 Furosemide (Lasix) 20 mg DAILY IV 02/21/18 09:00 03/23/18 08:59 02/26/18 09:19 Pantoprazole (Protonix) 40 mg DAILY ORAL 02/27/18 09:00 03/29/18 08:59 Prednisone (predniSONE) 10 mg DAILY ORAL 02/27/18 09:00 03/23/18 08:59 Tiotropium [place] (Spiriva Inhaler) 1 puff DAILY INH 02/20/18 09:00 03/06/18 08:59 02/26/18 09:00 Vitamin A/Vitamin D (A & D Oint) 1 applic EVERY 12 HOURS TOPIC 02/19/18 21:00 03/21/18 20:59 02/26/18 20:13 Height (Feet): 5 Height (Inches): 6.00 Weight (Pounds): 206 Objective exam stable, urine clearing renal u/s (02/19) noted Spenser Marc MD Feb 27, 2018 09:11
[2018-02-27] MEDS: dilTIAZem HCl CD 240mg cap ORAL SCH (09:28)
[2018-02-27] MEDS: Vitamin A&D Oint 2oz Tube TOPIC SCH ×2 (09:30→20:11)
--- NOTE | 2018-02-27 10:33 | Infectious Diseases Prog Note ---
Assessment/Plan Assessment/Plan antibiotics : acyclovir A 1. pneumonia improving 2. head lice improving 3. COPD 4. ? zoster 5. respiratory failure P 1. continue acyclovir 2 more days 2. will follow up cultures Subjective ROS Limited/Unobtainable: Yes Allergies: Coded Allergies: No Known Allergies (Unverified , 12/10/15) Objective Vital Signs Last 24 Hour Vital Signs Date Time Temp Pulse Resp B/P (MAP) Pulse Ox O2 Delivery O2 Flow Rate FiO2 02/27/18 09:28 82 123/67 02/27/18 09:20 87 18 98 Full Face 30 02/27/18 09:14 82 18 97 Nasal Cannula 2.0 28 02/27/18 09:14 83 18 100 Nasal Cannula 2.0 28 02/27/18 09:03 74 02/27/18 08:00 Bi-pap Bi-pap 02/27/18 08:00 98.1 85 20 123/67 (85) 98 02/27/18 06:40 Nasal Cannula 2.0 28 02/27/18 06:40 95 Nasal Cannula 2.0 28 02/27/18 05:37 67 18 97 2.0 28 02/27/18 04:00 98.1 76 18 132/76 (94) 98 02/27/18 04:00 92 02/27/18 04:00 Bi-pap Bi-pap 02/27/18 03:04 72 16 97 Facial 30 02/27/18 01:36 74 16 98 Facial 30 02/27/18 00:00 97.9 72 16 135/82 (99) 99 02/27/18 00:00 68 02/27/18 00:00 Bi-pap Bi-pap 02/26/18 22:50 78 16 97 Facial 30 02/26/18 20:00 77 02/26/18 20:00 98.6 74 16 136/70 (92) 97 02/26/18 20:00 Bi-pap Bi-pap 02/26/18 19:00 Nasal Cannula 2.0 28 02/26/18 19:00 96 Nasal Cannula 2.0 28 02/26/18 16:00 98.1 88 20 125/65 (85) 96 02/26/18 16:00 Bi-pap Bi-pap 02/26/18 16:00 75 02/26/18 12:07 Bi-pap Bi-pap 02/26/18 12:00 98.2 77 20 116/52 (73) 97 02/26/18 11:37 81 02/26/18 11:25 82 18 97 Nasal Cannula 2.0 28 02/26/18 11:25 83 18 97 Nasal Cannula 2.0 28 Height (Feet): 5 Height (Inches): 6.00 Weight (Pounds): 206 HEENT: other - on bipap Respiratory/Chest: lungs clear Cardiovascular: normal rate, regular rhythm, no gallop/murmur Abdomen: soft, non tender Extremities: no edema Current Medications Medications (Trade) Dose Ordered Sig/Isabella Route PRN Reason Start Time Stop Time Status Last Admin Dose Admin Acetaminophen (Tylenol) 650 mg Q6H PRN ORAL Mild Pain/Temp > 100.5 02/19/18 10:30 03/05/18 16:29 02/22/18 04:39 Acyclovir (Zovirax) 800 mg EVERY 6 HOURS ORAL 02/20/18 12:30 03/01/18 23:00 02/27/18 05:43 Bisacodyl (Dulcolax) 10 mg DAILYPRN PRN RECTAL Constipation 02/19/18 10:30 03/14/18 10:29 Clonidine HCl (Catapres Tab) 0.1 mg Q4H PRN ORAL SBP above 150 02/19/18 10:30 03/21/18 10:29 Diltiazem HCl (Cardizem CD) 240 mg DAILY ORAL 02/25/18 09:00 03/27/18 08:59 02/27/18 09:28 Diphenhydramine HCl (Benadryl) 25 mg Q6H PRN ORAL Itching 02/19/18 11:00 03/05/18 16:59 Fluoxetine HCl (PROzac) 20 mg DAILY ORAL 02/20/18 09:00 03/06/18 08:59 02/27/18 09:28 Furosemide (Lasix) 20 mg DAILY IV 02/21/18 09:00 03/23/18 08:59 02/27/18 09:27 Pantoprazole (Protonix) 40 mg DAILY ORAL 02/27/18 09:00 03/29/18 08:59 02/27/18 09:28 Prednisone (predniSONE) 10 mg DAILY ORAL 02/27/18 09:00 03/23/18 08:59 02/27/18 09:29 Tiotropium [place] (Spiriva Inhaler) 1 puff DAILY INH 02/20/18 09:00 03/06/18 08:59 02/27/18 09:14 Vitamin A/Vitamin D (A & D Oint) 1 applic EVERY 12 HOURS TOPIC 02/19/18 21:00 03/21/18 20:59 02/27/18 09:30 Radha Macias MD Feb 27, 2018 10:33
[2018-02-27 12:07] VITALS: BP 105/59
--- NOTE | 2018-02-27 15:34 | General Progress Note ---
Assessment/Plan Problem List: (1) COPD exacerbation ICD Codes: J44.1 - Chronic obstructive pulmonary disease with (acute) exacerbation SNOMED: 574448485 (2) HTN (hypertension) ICD Codes: I10 - Essential (primary) hypertension SNOMED: 17948741 (3) Hypoxia ICD Codes: R09.02 - Hypoxemia SNOMED: 658023602 (4) Elevated troponin ICD Codes: R74.8 - Abnormal levels of other serum enzymes SNOMED: 877664940, 612052134, 538814059 (5) Renal insufficiency ICD Codes: N28.9 - Disorder of kidney and ureter, unspecified SNOMED: 275679996, 036932714 (6) Respiratory failure ICD Codes: J96.90 - Respiratory failure, unspecified, unspecified whether with hypoxia or hypercapnia SNOMED: 834095716 Qualifiers: Qualified Codes: J96.02 - Acute respiratory failure with hypercapnia (7) Right lower lobe pneumonia ICD Codes: J18.1 - Lobar pneumonia, unspecified organism SNOMED: 904040742 Qualifiers: Qualified Codes: J18.1 - Lobar pneumonia, unspecified organism Status: stable, progressing Assessment/Plan resp rx o2 iv abx per id zoster rx monitor cxr po steroids bipap per pulm(try nocturnal) keep dry ID appreciated guarded refer to ltach or snf with nocturnal bipap Subjective ROS Limited/Unobtainable: No Constitutional: Reports: malaise, weakness HEENT: Reports: no symptoms Cardiovascular: Reports: no symptoms Respiratory: Reports: no symptoms Gastrointestinal/Abdominal: Reports: no symptoms Genitourinary: Reports: no symptoms Neurologic/Psychiatric: Reports: pre-existing deficit Endocrine: Reports: no symptoms Hematologic/Lymphatic: Reports: no symptoms Allergies: Coded Allergies: No Known Allergies (Unverified , 12/10/15) All Systems: reviewed and negative except above Subjective no complaints. denies cp/sob. abg noted. remains on bipap at night. per staff stable on nasal cannula during the day yesterday. denies sob. no overnight events. Objective Last 24 Hour Vital Signs Date Time Temp Pulse Resp B/P (MAP) Pulse Ox O2 Delivery O2 Flow Rate FiO2 02/27/18 12:29 79 18 96 21 02/27/18 12:07 97.2 84 20 105/59 (74) 98 02/27/18 12:06 Bi-pap Bi-pap 02/27/18 12:00 78 02/27/18 11:15 81 16 98 Full Face 25 02/27/18 09:28 82 123/67 02/27/18 09:20 87 18 98 Full Face 25 02/27/18 09:14 82 18 97 Nasal Cannula 2.0 28 02/27/18 09:14 83 18 100 Nasal Cannula 2.0 28 02/27/18 09:03 74 02/27/18 08:00 Bi-pap Bi-pap 02/27/18 08:00 98.1 85 20 123/67 (85) 98 02/27/18 06:40 Nasal Cannula 2.0 28 02/27/18 06:40 95 Nasal Cannula 2.0 28 02/27/18 05:37 67 18 97 2.0 28 02/27/18 04:00 98.1 76 18 132/76 (94) 98 02/27/18 04:00 92 02/27/18 04:00 Bi-pap Bi-pap 02/27/18 03:04 72 16 97 Facial 30 02/27/18 01:36 74 16 98 Facial 30 02/27/18 00:00 97.9 72 16 135/82 (99) 99 02/27/18 00:00 68 02/27/18 00:00 Bi-pap Bi-pap 02/26/18 22:50 78 16 97 Facial 30 02/26/18 20:00 77 02/26/18 20:00 98.6 74 16 136/70 (92) 97 02/26/18 20:00 Bi-pap Bi-pap 02/26/18 19:00 Nasal Cannula 2.0 28 02/26/18 19:00 96 Nasal Cannula 2.0 28 02/26/18 16:00 98.1 88 20 125/65 (85) 96 02/26/18 16:00 Bi-pap Bi-pap 02/26/18 16:00 75 Intake and Output 02/26/18 02/27/18 19:00 07:00 Intake Total 1200 ml Output Total 1400 ml 900 ml Balance -200 ml -900 ml Intake Oral 1200 ml Output Urine Total 1400 ml 900 ml # Bowel Movements 2 Height (Feet): 5 Height (Inches): 6.00 Weight (Pounds): 206 Objective General Appearance: WD/WN, resting. on bipap, opens eyes. alert. follows commands Neck: supple Cardiovascular: regular rhythm Respiratory/Chest: lungs mostly clear, few rhonchi Abdomen: normal bowel sounds, non tender, soft, no organomegaly Edema: no edema noted Arm (L), no edema noted Arm (R), no edema noted Leg (L), no edema noted Leg (R), no edema noted Pedal (L), no edema noted Pedal (R), no edema noted Generalized Manan Byrd MD Feb 27, 2018 15:34
[2018-02-27 16:00] VITALS: BP 130/65
[2018-02-27 20:11] VITALS: BP 122/49
--- NOTE | 2018-02-27 21:44 | Pulmonology Progress Note ---
Assessment/Plan Assessment/Plan PULMONARY PROGRESS NOTE IMPRESSION: Acute respiratory failure, COPD with acute exacerbation, respiratory acidosis and associated hypoxemia, cardiomegaly, pleural effusion and pulmonary edema, protein-calorie malnutrition. Improved SOB, on BiPAP PRN CXR: 1. Subsegmental atelectasis versus infiltrate in the left lung base/retrocardiac region, stable. 2. Blunting of the left breast phrenic angle suggesting a small left pleural effusion. PLAN seen earlier respiratory care reviewed IV antibiotics IV steroids taper- to prednisone supportive care as able monitor closely for now and try to wean daily guarded feeds position change and monitor for change skin monitoring DVT prophylaxis hope to avoid trach medications/laboratory data/nursing notes/ICU care reviewed in detail note reviewed and edited care discussed with RN and RT ICU time spent 40 minutes Critical Care - Subjective Interval Events: stable and off vent no distress on oxygen Condition: improving EKG Rhythm: Sinus Rhythm I&O: Intake and Output 02/18/18 02/19/18 19:00 07:00 Intake Total 880.0 ml 357.5 ml Output Total 1460 ml 600 ml Balance -580.0 ml -242.5 ml IV Total 220.0 ml 137.5 ml Tube Feeding 660 ml 220 ml Output Urine Total 1460 ml 600 ml # Bowel Movements 2 Critical Care - Objective CXR: minimal atelectasis ET-Tube: 7.5 ET Position: 24 Vital Signs noted Date Time Temp Pulse Resp B/P (MAP) Pulse Ox O2 Delivery O2 Flow Rate FiO2 02/19/18 19:20 Nasal Cannula 2.0 28 02/19/18 19:20 82 16 98 Nasal Cannula 2.0 28 02/19/18 19:20 98 Nasal Cannula 2.0 28 02/19/18 17:10 81 02/19/18 16:00 97.8 76 16 155/80 (105) 99 97.8 02/19/18 16:00 78 02/19/18 16:00 Nasal Cannula 2.0 Nasal Cannula 2.0 02/19/18 14:53 85 147/93 02/19/18 13:55 85 16 100 Nasal Cannula 2.0 28 02/19/18 13:45 84 16 98 Nasal Cannula 2.0 28 02/19/18 12:00 76 02/19/18 12:00 Nasal Cannula 2.0 Nasal Cannula 2.0 02/19/18 12:00 97.5 76 16 147/93 (111) 100 97.5 02/19/18 10:20 02/19/18 09:00 80 15 144/78 (100) 100 02/19/18 08:00 77 21 155/80 (105) 99 02/19/18 08:00 85 02/19/18 08:00 Nasal Cannula 2.0 Nasal Cannula 2.0 02/19/18 07:48 76 16 100 Nasal Cannula 2.0 28 02/19/18 07:46 Nasal Cannula 3.0 32 02/19/18 07:39 87 16 98 Nasal Cannula 2.0 28 02/19/18 07:38 98 Nasal Cannula 3.0 32 02/19/18 07:00 98.4 78 22 156/88 (110) 99 98.4 02/19/18 06:12 80 164/83 02/19/18 06:00 79 22 164/83 (110) 99 02/19/18 05:00 79 22 161/91 (114) 99 02/19/18 04:00 Nasal Cannula 2.0 Nasal Cannula 2.0 02/19/18 04:00 78 22 166/84 (111) 99 02/19/18 04:00 80 02/19/18 03:00 80 22 166/82 (110) 99 02/19/18 02:00 82 22 146/90 (108) 99 02/19/18 01:00 98.2 81 22 148/69 (95) 99 98.2 02/19/18 00:58 73 17 100 Nasal Cannula 2.0 28 02/19/18 00:57 28 02/19/18 00:50 76 17 99 Nasal Cannula 2.0 28 02/19/18 00:00 85 02/19/18 00:00 Nasal Cannula 2.0 Nasal Cannula 2.0 02/19/18 00:00 76 22 150/79 (102) 99 02/18/18 23:00 91 22 146/93 (110) 99 02/18/18 22:00 88 22 130/65 (86) 99 02/18/18 21:55 91 140/80 02/18/18 21:00 98.0 93 22 140/80 (100) 99 98.0 02/18/18 20:00 83 02/18/18 20:00 90 22 124/71 (88) 99 02/18/18 20:00 Nasal Cannula 2.0 Nasal Cannula 2.0 Labs: Labs Test 02/17/18 18:17 02/18/18 04:00 02/18/18 14:11 02/19/18 04:54 Urine Color Red Urine Appearance Turbid Urine pH 7 (4.5-8.0) Urine Specific [place] 1.010 (1.005-1.035) Urine Protein 3+ (NEGATIVE) Urine Glucose (UA) Negative (NEGATIVE) Urine Ketones Negative (NEGATIVE) Urine Blood 5+ (NEGATIVE) Urine Nitrite Negative (NEGATIVE) Urine Bilirubin Negative (NEGATIVE) Urine Urobilinogen Normal MG/DL (0.0-1.0) Urine Leukocyte Esterase 3+ (NEGATIVE) Urine RBC Tntc /HPF (0 - 2) Urine WBC 15-20 /HPF (0 - 2) Urine Squamous Epithelial Cells Few /LPF (NONE/OCC) Urine Bacteria Few /HPF (NONE) White Blood Count 11.1 K/UL (4.8-10.8) 10.0 K/UL (4.8-10.8) Red Blood Count 5.20 M/UL (4.20-5.40) 5.32 M/UL (4.20-5.40) Hemoglobin 14.8 G/DL (12.0-16.0) 14.8 G/DL (12.0-16.0) Hematocrit 46.1 % (37.0-47.0) 47.8 % (37.0-47.0) Mean Corpuscular Volume 89 FL (80-99) 90 FL (80-99) Mean Corpuscular Hemoglobin 28.4 PG (27.0-31.0) 27.8 PG (27.0-31.0) Mean Corpuscular Hemoglobin Concent 32.0 G/DL (32.0-36.0) 30.9 G/DL (32.0-36.0) Red Cell Distribution Width 14.3 % (11.6-14.8) 14.1 % (11.6-14.8) Platelet Count 141 K/UL (150-450) 137 K/UL (150-450) Mean Platelet Volume 6.8 FL (6.5-10.1) 7.3 FL (6.5-10.1) Neutrophils (%) (Auto) % (45.0-75.0) % (45.0-75.0) Lymphocytes (%) (Auto) % (20.0-45.0) % (20.0-45.0) Monocytes (%) (Auto) % (1.0-10.0) % (1.0-10.0) Eosinophils (%) (Auto) % (0.0-3.0) % (0.0-3.0) Basophils (%) (Auto) % (0.0-2.0) % (0.0-2.0) Differential Total Cells Counted 100 100 Neutrophils % (Manual) 91 % (45-75) 88 % (45-75) Lymphocytes % (Manual) 3 % (20-45) 5 % (20-45) Monocytes % (Manual) 6 % (1-10) 7 % (1-10) Eosinophils % (Manual) 0 % (0-3) 0 % (0-3) Basophils % (Manual) 0 % (0-2) 0 % (0-2) Band Neutrophils 0 % (0-8) 0 % (0-8) Platelet Estimate Decreased Decreased Platelet Morphology Normal Normal Red Blood Cell Morphology Normal Normal Sodium Level 140 MMOL/L (136-145) 142 MMOL/L (136-145) Potassium Level 3.8 MMOL/L (3.5-5.1) 3.8 MMOL/L (3.5-5.1) Chloride Level 104 MMOL/L (98-107) 103 MMOL/L (98-107) Carbon Dioxide Level 31 MMOL/L (21-32) 34 MMOL/L (21-32) Anion Gap 5 mmol/L (5-15) 5 mmol/L (5-15) Blood Urea Nitrogen 17 mg/dL (7-18) 19 mg/dL (7-18) Creatinine 0.6 MG/DL (0.55-1.30) 0.5 MG/DL (0.55-1.30) Estimat Glomerular Filtration Rate mL/min (>60) mL/min (>60) Glucose Level 125 MG/DL (74-106) 121 MG/DL (74-106) Calcium Level 8.9 MG/DL (8.5-10.1) 9.2 MG/DL (8.5-10.1) Total Bilirubin 0.3 MG/DL (0.2-1.0) 0.4 MG/DL (0.2-1.0) Aspartate Amino Transf (AST/SGOT) 8 U/L (15-37) 5 U/L (15-37) Alanine Aminotransferase (ALT/SGPT) 15 U/L (12-78) 17 U/L (12-78) Alkaline Phosphatase 82 U/L (46-116) 76 U/L (46-116) Total Protein 5.9 G/DL (6.4-8.2) 6.1 G/DL (6.4-8.2) Albumin 2.3 G/DL (3.4-5.0) 2.5 G/DL (3.4-5.0) Globulin 3.6 g/dL 3.6 g/dL Albumin/Globulin Ratio 0.6 (1.0-2.7) 0.7 (1.0-2.7) Arterial Blood pH 7.450 (7.350-7.450) Arterial Blood Partial Pressure CO2 48.4 mmHg (35.0-45.0) Arterial Blood Partial Pressure O2 86.4 mmHg (75.0-100.0) Arterial Blood HCO3 33.3 mmol/L (22.0-26.0) Arterial Blood Oxygen Saturation 97.0 % (95-100) Arterial Blood Base Excess 7.9 (-2-2) Tarun Test Positive Phosphorus Level 2.3 MG/DL (2.5-4.9) Magnesium Level 1.9 MG/DL (1.8-2.4) Pro-B-Type Natriuretic Peptide 449 pg/mL (0-125) Objective: GENERAL: sedated/withdrawn; off vent; on NC NECK: Supple. No adenopathy. No jugular venous distention. orally intubated LUNGS: Moderate breath sounds. no rhonchi. No wheezes. stable CARDIAC: S1 and S2. Regular rhythm without murmurs, rubs, or gallops. ABDOMEN: Soft, nontender, nondistended. no HSM; feeding tube in place EXTREMITIES: No cyanosis, clubbing; trace edema. NEUROLOGIC: Grossly nonfocal, sedated reviewed and examined Micro: Microbiology Date/Time Source Procedure Growth Status 02/17/18 18:17 Indwelling Cath Urine Culture - Preliminary NO GROWTH Resulted Subjective ROS Limited/Unobtainable: No Allergies: Coded Allergies: No Known Allergies (Unverified , 12/10/15) Objective Last 24 Hour Vital Signs Date Time Temp Pulse Resp B/P (MAP) Pulse Ox O2 Delivery O2 Flow Rate FiO2 02/27/18 20:11 97.8 82 18 122/49 (73) 98 02/27/18 20:00 91 02/27/18 18:53 81 19 97 Full Face 25 02/27/18 18:53 Bi-pap 25 02/27/18 18:52 97 Bi-pap 25 02/27/18 18:00 81 19 99 28 02/27/18 16:00 25 02/27/18 16:00 Bi-pap Bi-pap 02/27/18 16:00 97.8 81 17 130/65 (86) 97 02/27/18 16:00 85 02/27/18 15:51 89 17 98 Full Face 25 02/27/18 12:29 79 18 96 21 02/27/18 12:07 97.2 84 20 105/59 (74) 98 02/27/18 12:00 Bi-pap Bi-pap 02/27/18 12:00 78 02/27/18 11:15 81 16 98 Full Face 25 02/27/18 09:28 82 123/67 02/27/18 09:20 87 18 98 Full Face 25 02/27/18 09:14 82 18 97 Nasal Cannula 2.0 28 02/27/18 09:14 83 18 100 Nasal Cannula 2.0 28 02/27/18 09:03 74 02/27/18 08:00 Bi-pap Bi-pap 02/27/18 08:00 98.1 85 20 123/67 (85) 98 02/27/18 06:40 Nasal Cannula 2.0 28 02/27/18 06:40 95 Nasal Cannula 2.0 28 02/27/18 05:37 67 18 97 2.0 28 02/27/18 04:00 98.1 76 18 132/76 (94) 98 02/27/18 04:00 92 02/27/18 04:00 Bi-pap Bi-pap 02/27/18 03:04 72 16 97 Facial 30 02/27/18 01:36 74 16 98 Facial 30 02/27/18 00:00 97.9 72 16 135/82 (99) 99 02/27/18 00:00 68 10/31/18 00:00 Bi-pap Bi-pap 02/26/18 22:50 78 16 97 Facial 30 Intake and Output 02/26/18 02/27/18 19:00 07:00 Intake Total 1200 ml Output Total 1400 ml 900 ml Balance -200 ml -900 ml Intake Oral 1200 ml Output Urine Total 1400 ml 900 ml # Bowel Movements 2 Laboratory Tests 02/27/18 09:05: Arterial Blood pH 7.376, Arterial Blood Partial Pressure CO2 60.3*H, Arterial Blood Partial Pressure O2 128.5H, Arterial Blood HCO3 34.6H, Arterial Blood Oxygen Saturation 98.2, Arterial Blood Base Excess 7.4H, Tarun Test Positive Current Medications Medications (Trade) Dose Ordered Sig/Isabella Route PRN Reason Start Time Stop Time Status Last Admin Dose Admin Acetaminophen (Tylenol) 650 mg Q6H PRN ORAL Mild Pain/Temp > 100.5 02/19/18 10:30 03/05/18 16:29 02/22/18 04:39 Acyclovir (Zovirax) 800 mg EVERY 6 HOURS ORAL 02/20/18 12:30 03/01/18 23:00 02/27/18 17:06 Bisacodyl (Dulcolax) 10 mg DAILYPRN PRN RECTAL Constipation 02/19/18 10:30 03/14/18 10:29 Clonidine HCl (Catapres Tab) 0.1 mg Q4H PRN ORAL SBP above 150 02/19/18 10:30 03/21/18 10:29 Diltiazem HCl (Cardizem CD) 240 mg DAILY ORAL 02/25/18 09:00 03/27/18 08:59 02/27/18 09:28 Diphenhydramine HCl (Benadryl) 25 mg Q6H PRN ORAL Itching 02/19/18 11:00 03/05/18 16:59 Fluoxetine HCl (PROzac) 20 mg DAILY ORAL 02/20/18 09:00 03/06/18 08:59 02/27/18 09:28 Furosemide (Lasix) 20 mg DAILY IV 02/21/18 09:00 03/23/18 08:59 02/27/18 09:27 Pantoprazole (Protonix) 40 mg DAILY ORAL 02/27/18 09:00 03/29/18 08:59 02/27/18 09:28 Prednisone (predniSONE) 10 mg DAILY ORAL 02/27/18 09:00 03/23/18 08:59 02/27/18 09:29 Tiotropium [place] (Spiriva Inhaler) 1 puff DAILY INH 02/20/18 09:00 03/06/18 08:59 02/27/18 09:14 Vitamin A/Vitamin D (A & D Oint) 1 applic EVERY 12 HOURS TOPIC 02/19/18 21:00 03/21/18 20:59 02/27/18 20:11 Ashvin Serrano MD Feb 27, 2018 21:44
[2018-02-28] VITALS: BP 136/66
--- NOTE | 2018-02-28 00:15 | Progress Note ---
DATE: 02/25/2018 CARDIOLOGY PROGRESS NOTE Late entry. SUBJECTIVE: The patient's condition remains unchanged. Monitored rhythm, sinus. She is on BiPAP support. OBJECTIVE: VITAL SIGNS: Blood pressure 150/82, pulse 76, respirations 16, and no fevers. LUNGS: Coarse breath sounds. Few rhonchi. HEART: Regular rhythm and rate. Normal S1, S2. ABDOMEN: Soft. EXTREMITIES: Trace edema. LABORATORY DATA: White count 11.3, hemoglobin 12.8. Sodium 138, potassium 3.8, bicarbonate 33, BUN 16, and creatinine 0.6. Albumin 2.3. Pro-natriuretic peptide 299. IMPRESSION: 1. Acute on chronic respiratory acidosis, now compensated. 2. Chronic diastolic congestive heart failure. 3. Acute myocardial ischemia, resolved. 4. Severe protein-calorie malnutrition. 5. Compensatory metabolic alkalosis, improved. 6. Hypomagnesemia, corrected. 7. Chronic obstructive pulmonary disease with exacerbation and bronchospasm, resolving. PLAN: 1. Avoid BiPAP. 2. Respiratory hygiene. 3. Steroid taper. 4. Bronchodilators. 5. No role for diuresis presently. 6. No need for Diamox at this time either. We will follow. Ashvin Wu M.D. DR: EDUARDO JOB#: [id number] CC:
--- NOTE | 2018-02-28 00:15 | Progress Note ---
DATE: 02/26/2018 CARDIOLOGY PROGRESS NOTE Late entry for February 26, 2018. SUBJECTIVE: There are no new complaints. The patient is requiring BiPAP at night. Nasal cannula during the day. No distress. OBJECTIVE: VITAL SIGNS: Blood pressure 122/78, pulse 78, respiratory rate 16, and afebrile. LUNGS: Few rhonchi. No wheezing. CARDIAC: Regular rhythm and rate. Normal S1 and S2. ABDOMEN: Soft. EXTREMITIES: No edema. LABORATORY DATA: ABG, 7.42, 55, 122. Chest x-ray today was notable for left atelectasis, small effusion, mild cardiomegaly, no other process. IMPRESSION: Slowly improving. PLAN: 1. Taper off BiPAP. 2. Monitor acid-base parameters. 3. No diuresis. 4. We will follow closely and adjust therapy accordingly. 5. Continue diltiazem for blood pressure control and arrhythmia suppression. 6. Transition to maintenance ____ oral diuretics. Ashvin Wu M.D. DR: OLGA LIDIA JOB#: [id number] CC:
--- NOTE | 2018-02-28 00:30 | Progress Note ---
DATE: 02/27/2018 CARDIOLOGY PROGRESS NOTE SUBJECTIVE: Continues to require nocturnal BiPAP. Respiratory parameters have improved, but not adequate to discontinue this completely. OBJECTIVE: VITAL SIGNS: Blood pressure 122/49, pulse 82, and respirations 18. LUNGS: Coarse breath sounds. No wheezing. CARDIAC: Regular rhythm and rate. Normal S1, S2. ABDOMEN: Soft. EXTREMITIES: Trace edema. IMPRESSION: 1. Compensated diastolic dysfunction signs of acute congestive heart failure. 2. Paroxysmal atrial ectopy suppressed . 3. Acute on chronic respiratory acidosis. 4. COPD, resolved. 5. Acute myocardial ischemia, remains with tenuous respiratory parameters. PLAN: 1. Discontinue diuretic. 2. Recheck laboratory studies and monitor acid-base parameters. 3. Continued efforts to taper off BiPAP. 4. DVT prophylaxis. 5. Steroid taper. 6. Diltiazem for blood pressure control and suppression of atrial arrhythmia. Ashvin Wu M.D. DR: RAFAEL JOB#: [id number] CC:
[2018-02-28 04:00] VITALS: BP 115/56
[2018-02-28 05:49] LABS: BASOPHILS % (AUTO) 0.8 % (0.0-2.0); EOSINOPHILS % (AUTO) 4.5 % (0.0-3.0); HEMATOCRIT 40.9 % (37.0-47.0); HEMOGLOBIN 12.9 G/DL (12.0-16.0); LYMPHOCYTES % (AUTO) 23.6 % (20.0-45.0); MEAN CORPUSCULAR VOLUME 90 FL (80-99); MONOCYTES % (AUTO) 6.7 % (1.0-10.0); NEUTROPHILS % (AUTO) 64.4 % (45.0-75.0); PLATELET COUNT 191 K/UL (150-450); RED BLOOD COUNT 4.53 M/UL (4.20-5.40); RED CELL DISTRIBUTION WIDTH 14.5 % (11.6-14.8); WHITE BLOOD COUNT 8.2 K/UL (4.8-10.8)
[2018-02-28 06:27] LABS: ALANINE AMINOTRANSFERASE 16 U/L (12-78); ALBUMIN 2.3 G/DL (3.4-5.0); ALBUMIN/GLOBULIN RATIO 0.6 (1.0-2.7); ALKALINE PHOSPHATASE 75 U/L (46-116); ANION GAP 3 mmol/L (5-15); ASPARTATE AMINO TRANSFERASE 12 U/L (15-37); BILIRUBIN,TOTAL 0.4 MG/DL (0.2-1.0); BLOOD UREA NITROGEN 12 mg/dL (7-18); CALCIUM 8.9 MG/DL (8.5-10.1); CARBON DIOXIDE 35 MMOL/L (21-32); CHLORIDE 103 MMOL/L (98-107); CREATININE 0.5 MG/DL (0.55-1.30); POTASSIUM 3.6 MMOL/L (3.5-5.1); SODIUM 141 MMOL/L (136-145)
--- NOTE | 2018-02-28 07:14 | General Progress Note ---
Assessment/Plan Problem List: (1) COPD exacerbation ICD Codes: J44.1 - Chronic obstructive pulmonary disease with (acute) exacerbation SNOMED: 184396552 (2) HTN (hypertension) ICD Codes: I10 - Essential (primary) hypertension SNOMED: 56675807 (3) Hypoxia ICD Codes: R09.02 - Hypoxemia SNOMED: 078609296 (4) Elevated troponin ICD Codes: R74.8 - Abnormal levels of other serum enzymes SNOMED: 651390120, 168102907, 455864537 (5) Renal insufficiency ICD Codes: N28.9 - Disorder of kidney and ureter, unspecified SNOMED: 459190876, 943898900 (6) Respiratory failure ICD Codes: J96.90 - Respiratory failure, unspecified, unspecified whether with hypoxia or hypercapnia SNOMED: 320352159 Qualifiers: Qualified Codes: J96.02 - Acute respiratory failure with hypercapnia (7) Right lower lobe pneumonia ICD Codes: J18.1 - Lobar pneumonia, unspecified organism SNOMED: 348315242 Qualifiers: Qualified Codes: J18.1 - Lobar pneumonia, unspecified organism Status: stable, progressing Assessment/Plan resp rx o2 zoster rx monitor cxr po steroids bipap per pulm(try nocturnal) keep dry ID appreciated guarded refer to ltach or snf with nocturnal bipap Subjective ROS Limited/Unobtainable: No Constitutional: Reports: malaise, weakness HEENT: Reports: no symptoms Cardiovascular: Reports: no symptoms Respiratory: Reports: no symptoms Gastrointestinal/Abdominal: Reports: no symptoms Genitourinary: Reports: no symptoms Neurologic/Psychiatric: Reports: no symptoms Endocrine: Reports: no symptoms Hematologic/Lymphatic: Reports: no symptoms Allergies: Coded Allergies: No Known Allergies (Unverified , 12/10/15) All Systems: reviewed and negative except above Subjective no complaints. off bipap currently. used bipap most of the night, alert. no new complaints. denies sob. Objective Last 24 Hour Vital Signs Date Time Temp Pulse Resp B/P (MAP) Pulse Ox O2 Delivery O2 Flow Rate FiO2 02/28/18 04:44 83 18 98 Full Face 25 02/28/18 04:00 81 02/28/18 04:00 98.6 86 18 115/56 (75) 99 02/28/18 04:00 Bi-pap Bi-pap 02/28/18 04:00 25 02/28/18 02:47 80 16 97 Full Face 25 02/28/18 01:02 84 19 97 Full Face 25 02/28/18 00:00 Bi-pap Bi-pap 02/28/18 00:00 84 02/28/18 00:00 98.7 80 20 136/66 (89) 97 02/28/18 00:00 25 02/27/18 23:18 77 17 98 Full Face 25 02/27/18 20:11 97.8 82 18 122/49 (73) 98 02/27/18 20:00 Bi-pap Bi-pap 02/27/18 20:00 91 02/27/18 18:53 81 19 97 Full Face 25 02/27/18 18:53 Bi-pap 25 02/27/18 18:52 97 Bi-pap 25 02/27/18 18:00 81 19 99 28 02/27/18 16:00 25 02/27/18 16:00 Bi-pap Bi-pap 02/27/18 16:00 97.8 81 17 130/65 (86) 97 02/27/18 16:00 85 02/27/18 15:51 89 17 98 Full Face 25 02/27/18 12:29 79 18 96 21 02/27/18 12:07 97.2 84 20 105/59 (74) 98 02/27/18 12:00 Bi-pap Bi-pap 02/27/18 12:00 78 02/27/18 11:15 81 16 98 Full Face 25 02/27/18 09:28 82 123/67 02/27/18 09:20 87 18 98 Full Face 25 02/27/18 09:14 82 18 97 Nasal Cannula 2.0 28 02/27/18 09:14 83 18 100 Nasal Cannula 2.0 28 02/27/18 09:03 74 02/27/18 08:00 Bi-pap Bi-pap 02/27/18 08:00 98.1 85 20 123/67 (85) 98 Intake and Output 02/27/18 02/28/18 19:00 07:00 Intake Total 800 ml 240 ml Output Total 1002 ml 1126 ml Balance -202 ml -886 ml Intake Oral 800 ml 240 ml Output Urine Total 1000 ml 1125 ml Stool Total 2 ml 1 ml Laboratory Tests 02/27/18 09:05: Arterial Blood pH 7.376, Arterial Blood Partial Pressure CO2 60.3*H, Arterial Blood Partial Pressure O2 128.5H, Arterial Blood HCO3 34.6H, Arterial Blood Oxygen Saturation 98.2, Arterial Blood Base Excess 7.4H, Tarun Test Positive 02/28/18 04:40: White Blood Count 8.2, Red Blood Count 4.53, Hemoglobin 12.9, Hematocrit 40.9, Mean Corpuscular Volume 90, Mean Corpuscular Hemoglobin 28.5, Mean Corpuscular Hemoglobin Concent 31.6L, Red Cell Distribution Width 14.5, Platelet Count 191, Mean Platelet Volume 6.1L, Neutrophils (%) (Auto) 64.4, Lymphocytes (%) (Auto) 23.6, Monocytes (%) (Auto) 6.7, Eosinophils (%) (Auto) 4.5H, Basophils (%) (Auto ) 0.8, Sodium Level 141, Potassium Level 3.6, Chloride Level 103, Carbon Dioxide Level 35H, Anion Gap 3L, Blood Urea Nitrogen 12, Creatinine 0.5L, Estimat Glomerular Filtration Rate , Glucose Level 81, Calcium Level 8.9, Magnesium Level 1.7L, Total Bilirubin 0.4, Aspartate Amino Transf (AST/SGOT) 12L , Alanine Aminotransferase (ALT/SGPT) 16, Alkaline Phosphatase 75, Pro-B-Type Natriuretic Peptide 234H, Total Protein 5.9L, Albumin 2.3L, Globulin 3.6, Albumin/Globulin Ratio 0.6L Height (Feet): 5 Height (Inches): 6.00 Weight (Pounds): 207 Objective General Appearance: WD/WN, resting. on nasal cannula, opens eyes. alert. follows commands Neck: supple Cardiovascular: regular rhythm Respiratory/Chest: lungs mostly clear, few rhonchi Abdomen: normal bowel sounds, non tender, soft, no organomegaly Edema: no edema noted Arm (L), no edema noted Arm (R), no edema noted Leg (L), no edema noted Leg (R), no edema noted Pedal (L), no edema noted Pedal (R), no edema noted Generalized Manan Byrd MD Feb 28, 2018 07:14
[2018-02-28 07:38] VITALS: BP 136/70
[2018-02-28] MEDS: dilTIAZem HCl CD 240mg cap ORAL SCH (08:06)
[2018-02-28] MEDS: Vitamin A&D Oint 2oz Tube TOPIC SCH ×2 (08:07→20:27)
--- NOTE | 2018-02-28 08:57 | Critical Care Progress Note ---
Assessment/Plan Assessment/Plan IMPRESSION: Acute on chronic respiratory failure, COPD with acute exacerbation, chronic respiratory acidosis and associated hypoxemia, cardiomegaly, pleural effusion and pulmonary edema, protein-calorie malnutrition. PLAN monitor as is respiratory care reviewed supportive care as able monitor closely for now and use BIPAP QHS as tolerated guarded feeds position change and monitor for change skin monitoring DVT prophylaxis monitor acid base possible LTAC ABG noted; monitor for worsening co2 retention WOULD BENEFIT FROM TRILOGY medications/laboratory data/nursing notes reviewed in detail note reviewed and edited care discussed with RN and RT Critical Care - Subjective Interval Events: reviewed RT care overnight stable reduced LOC ROS Limited/Unobtainable: Yes Condition: stable EKG Rhythm: Sinus Rhythm I&O: Intake and Output 02/27/18 02/28/18 19:00 07:00 Intake Total 800 ml 240 ml Output Total 1002 ml 1126 ml Balance -202 ml -886 ml Intake Oral 800 ml 240 ml Output Urine Total 1000 ml 1125 ml Stool Total 2 ml 1 ml Critical Care - Objective ET-Tube: 7.5 ET Position: 24 Last 24 Hour Vital Signs Date Time Temp Pulse Resp B/P (MAP) Pulse Ox O2 Delivery O2 Flow Rate FiO2 02/28/18 08:06 85 136/70 02/28/18 07:40 81 02/28/18 07:38 98.9 85 17 136/70 (92) 100 02/28/18 07:02 Nasal Cannula 2.0 28 02/28/18 07:01 99 Nasal Cannula 2.0 28 02/28/18 04:44 83 18 98 Full Face 25 02/28/18 04:00 81 02/28/18 04:00 98.6 86 18 115/56 (75) 99 02/28/18 04:00 Bi-pap Bi-pap 02/28/18 04:00 25 02/28/18 02:47 80 16 97 Full Face 25 02/28/18 01:02 84 19 97 Full Face 25 02/28/18 00:00 Bi-pap Bi-pap 02/28/18 00:00 84 02/28/18 00:00 98.7 80 20 136/66 (89) 97 02/28/18 00:00 25 02/27/18 23:18 77 17 98 Full Face 25 02/27/18 20:11 97.8 82 18 122/49 (73) 98 02/27/18 20:00 Bi-pap Bi-pap 02/27/18 20:00 91 02/27/18 18:53 81 19 97 Full Face 25 02/27/18 18:53 Bi-pap 25 02/27/18 18:52 97 Bi-pap 25 02/27/18 18:00 81 19 99 28 02/27/18 16:00 25 02/27/18 16:00 Bi-pap Bi-pap 02/27/18 16:00 97.8 81 17 130/65 (86) 97 02/27/18 16:00 85 02/27/18 15:51 89 17 98 Full Face 25 02/27/18 12:29 79 18 96 21 02/27/18 12:07 97.2 84 20 105/59 (74) 98 02/27/18 12:00 Bi-pap Bi-pap 02/27/18 12:00 78 02/27/18 11:15 81 16 98 Full Face 25 02/27/18 09:28 82 123/67 02/27/18 09:20 87 18 98 Full Face 25 02/27/18 09:14 82 18 97 Nasal Cannula 2.0 28 02/27/18 09:14 83 18 100 Nasal Cannula 2.0 28 02/27/18 09:03 74 Labs: Labs Test 02/26/18 04:00 02/27/18 09:05 02/28/18 04:40 Arterial Blood pH 7.424 (7.350-7.450) 7.376 (7.350-7.450) Arterial Blood Partial Pressure CO2 55.0 mmHg (35.0-45.0) 60.3 mmHg (35.0-45.0) Arterial Blood Partial Pressure O2 122.8 mmHg (75.0-100.0) 128.5 mmHg (75.0-100.0) Arterial Blood HCO3 35.2 mmol/L (22.0-26.0) 34.6 mmol/L (22.0-26.0) Arterial Blood Oxygen Saturation 98.2 % (95-100) 98.2 % (95-100) Arterial Blood Base Excess 9.0 (-2-2) 7.4 (-2-2) Tarun Test Positive Positive White Blood Count 8.2 K/UL (4.8-10.8) Red Blood Count 4.53 M/UL (4.20-5.40) Hemoglobin 12.9 G/DL (12.0-16.0) Hematocrit 40.9 % (37.0-47.0) Mean Corpuscular Volume 90 FL (80-99) Mean Corpuscular Hemoglobin 28.5 PG (27.0-31.0) Mean Corpuscular Hemoglobin Concent 31.6 G/DL (32.0-36.0) Red Cell Distribution Width 14.5 % (11.6-14.8) Platelet Count 191 K/UL (150-450) Mean Platelet Volume 6.1 FL (6.5-10.1) Neutrophils (%) (Auto) 64.4 % (45.0-75.0) Lymphocytes (%) (Auto) 23.6 % (20.0-45.0) Monocytes (%) (Auto) 6.7 % (1.0-10.0) Eosinophils (%) (Auto) 4.5 % (0.0-3.0) Basophils (%) (Auto) 0.8 % (0.0-2.0) Sodium Level 141 MMOL/L (136-145) Potassium Level 3.6 MMOL/L (3.5-5.1) Chloride Level 103 MMOL/L (98-107) Carbon Dioxide Level 35 MMOL/L (21-32) Anion Gap 3 mmol/L (5-15) Blood Urea Nitrogen 12 mg/dL (7-18) Creatinine 0.5 MG/DL (0.55-1.30) Estimat Glomerular Filtration Rate mL/min (>60) Glucose Level 81 MG/DL (74-106) Calcium Level 8.9 MG/DL (8.5-10.1) Magnesium Level 1.7 MG/DL (1.8-2.4) Total Bilirubin 0.4 MG/DL (0.2-1.0) Aspartate Amino Transf (AST/SGOT) 12 U/L (15-37) Alanine Aminotransferase (ALT/SGPT) 16 U/L (12-78) Alkaline Phosphatase 75 U/L (46-116) Pro-B-Type Natriuretic Peptide 234 pg/mL (0-125) Total Protein 5.9 G/DL (6.4-8.2) Albumin 2.3 G/DL (3.4-5.0) Globulin 3.6 g/dL Albumin/Globulin Ratio 0.6 (1.0-2.7) Objective: GENERAL: awake; no distress; on oxygen no distress NECK: Supple. No adenopathy. No jugular venous distention. orally intubated LUNGS: Moderate breath sounds. occasional rhonchi. No wheezes. stable CARDIAC: S1 and S2. Regular rhythm without murmurs, rubs, or gallops. ABDOMEN: Soft, nontender, nondistended. no HSM; feeding tube in place EXTREMITIES: No cyanosis, clubbing; trace edema. NEUROLOGIC: Grossly nonfocal, reviewed and examined Accucheck: 140 Mk Billings MD Feb 28, 2018 08:57
[2018-02-28 11:08] VITALS: BP 123/60
--- NOTE | 2018-02-28 11:15 | Infectious Diseases Prog Note ---
Assessment/Plan Assessment/Plan A; Head lice treated COPD Pneumonia treated Anemia Hypercapnic respiratory failure resolving ? herpes zoster P: continue acyclovir 1 more day Subjective ROS Limited/Unobtainable: Yes Constitutional: Reports: no symptoms Respiratory: Reports: other - uses BIPAP at night Cardiovascular: Reports: no symptoms Gastrointestinal/Abdominal: Reports: no symptoms Genitourinary: Reports: no symptoms Allergies: Coded Allergies: No Known Allergies (Unverified , 12/10/15) Objective Vital Signs Last 24 Hour Vital Signs Date Time Temp Pulse Resp B/P (MAP) Pulse Ox O2 Delivery O2 Flow Rate FiO2 02/28/18 11:08 97.8 85 16 123/60 (81) 100 02/28/18 10:24 79 18 99 Nasal Cannula 2.0 28 02/28/18 10:22 78 20 99 Nasal Cannula 2.0 28 02/28/18 08:06 85 136/70 02/28/18 08:00 2.0 02/28/18 08:00 Nasal Cannula 2.0 Nasal Cannula 2.0 02/28/18 07:40 81 02/28/18 07:38 98.9 85 17 136/70 (92) 100 02/28/18 07:02 Nasal Cannula 2.0 28 02/28/18 07:01 99 Nasal Cannula 2.0 28 02/28/18 04:44 83 18 98 Full Face 25 02/28/18 04:00 81 02/28/18 04:00 98.6 86 18 115/56 (75) 99 02/28/18 04:00 Bi-pap Bi-pap 02/28/18 04:00 25 02/28/18 02:47 80 16 97 Full Face 25 02/28/18 01:02 84 19 97 Full Face 25 02/28/18 00:00 Bi-pap Bi-pap 02/28/18 00:00 84 02/28/18 00:00 98.7 80 20 136/66 (89) 97 02/28/18 00:00 25 02/27/18 23:18 77 17 98 Full Face 25 02/27/18 20:11 97.8 82 18 122/49 (73) 98 02/27/18 20:00 Bi-pap Bi-pap 02/27/18 20:00 91 02/27/18 18:53 81 19 97 Full Face 25 02/27/18 18:53 Bi-pap 25 02/27/18 18:52 97 Bi-pap 25 02/27/18 18:00 81 19 99 28 02/27/18 16:00 25 02/27/18 16:00 Bi-pap Bi-pap 02/27/18 16:00 97.8 81 17 130/65 (86) 97 02/27/18 16:00 85 02/27/18 15:51 89 17 98 Full Face 25 02/27/18 12:29 79 18 96 21 02/27/18 12:07 97.2 84 20 105/59 (74) 98 02/27/18 12:00 Bi-pap Bi-pap 02/27/18 12:00 78 02/27/18 11:15 81 16 98 Full Face 25 Height (Feet): 5 Height (Inches): 6.00 Weight (Pounds): 207 General Appearance: no acute distress HEENT: mucous membranes moist Respiratory/Chest: lungs clear Cardiovascular: normal rate Abdomen: soft, non tender Extremities: no edema Neurologic/Psychiatric: alert, responsive Laboratory Tests Test 02/28/18 04:40 White Blood Count 8.2 K/UL (4.8-10.8) Red Blood Count 4.53 M/UL (4.20-5.40) Hemoglobin 12.9 G/DL (12.0-16.0) Hematocrit 40.9 % (37.0-47.0) Mean Corpuscular Volume 90 FL (80-99) Mean Corpuscular Hemoglobin 28.5 PG (27.0-31.0) Mean Corpuscular Hemoglobin Concent 31.6 G/DL (32.0-36.0) L Red Cell Distribution Width 14.5 % (11.6-14.8) Platelet Count 191 K/UL (150-450) Mean Platelet Volume 6.1 FL (6.5-10.1) L Neutrophils (%) (Auto) 64.4 % (45.0-75.0) Lymphocytes (%) (Auto) 23.6 % (20.0-45.0) Monocytes (%) (Auto) 6.7 % (1.0-10.0) Eosinophils (%) (Auto) 4.5 % (0.0-3.0) H Basophils (%) (Auto) 0.8 % (0.0-2.0) Sodium Level 141 MMOL/L (136-145) Potassium Level 3.6 MMOL/L (3.5-5.1) Chloride Level 103 MMOL/L (98-107) Carbon Dioxide Level 35 MMOL/L (21-32) H Anion Gap 3 mmol/L (5-15) L Blood Urea Nitrogen 12 mg/dL (7-18) Creatinine 0.5 MG/DL (0.55-1.30) L Estimat Glomerular Filtration Rate mL/min (>60) Glucose Level 81 MG/DL (74-106) Calcium Level 8.9 MG/DL (8.5-10.1) Magnesium Level 1.7 MG/DL (1.8-2.4) L Total Bilirubin 0.4 MG/DL (0.2-1.0) Aspartate Amino Transf (AST/SGOT) 12 U/L (15-37) L Alanine Aminotransferase (ALT/SGPT) 16 U/L (12-78) Alkaline Phosphatase 75 U/L (46-116) Pro-B-Type Natriuretic Peptide 234 pg/mL (0-125) H Total Protein 5.9 G/DL (6.4-8.2) L Albumin 2.3 G/DL (3.4-5.0) L Globulin 3.6 g/dL Albumin/Globulin Ratio 0.6 (1.0-2.7) L Current Medications Medications (Trade) Dose Ordered Sig/Isabella Route PRN Reason Start Time Stop Time Status Last Admin Dose Admin Acetaminophen (Tylenol) 650 mg Q6H PRN ORAL Mild Pain/Temp > 100.5 02/19/18 10:30 03/05/18 16:29 02/22/18 04:39 Acyclovir (Zovirax) 800 mg EVERY 6 HOURS ORAL 02/20/18 12:30 03/01/18 23:00 02/28/18 11:06 Bisacodyl (Dulcolax) 10 mg DAILYPRN PRN RECTAL Constipation 02/19/18 10:30 03/14/18 10:29 Clonidine HCl (Catapres Tab) 0.1 mg Q4H PRN ORAL SBP above 150 02/19/18 10:30 03/21/18 10:29 Diltiazem HCl (Cardizem CD) 240 mg DAILY ORAL 02/25/18 09:00 03/27/18 08:59 02/28/18 08:06 Diphenhydramine HCl (Benadryl) 25 mg Q6H PRN ORAL Itching 02/19/18 11:00 03/05/18 16:59 Fluoxetine HCl (PROzac) 20 mg DAILY ORAL 02/20/18 09:00 03/06/18 08:59 02/28/18 08:07 Pantoprazole (Protonix) 40 mg DAILY ORAL 02/27/18 09:00 03/29/18 08:59 02/28/18 08:06 Prednisone (predniSONE) 10 mg DAILY ORAL 02/27/18 09:00 03/23/18 08:59 02/28/18 08:06 Tiotropium [place] (Spiriva Inhaler) 1 puff DAILY INH 02/20/18 09:00 03/06/18 08:59 02/28/18 10:22 Vitamin A/Vitamin D (A & D Oint) 1 applic EVERY 12 HOURS TOPIC 02/19/18 21:00 03/21/18 20:59 02/28/18 08:07 Amado Estrella MD Feb 28, 2018 11:15
--- NOTE | 2018-02-28 11:20 | Urology Progress Note ---
Assessment/Plan Assessment/Plan 1. Gross hematuria, improved. 2. Urinary retention. 3. Probable neurogenic bladder. 4. Pyuria. 5. Proteinuria. 6. Possible hemorrhagic cystitis. monitor clinically arellano indwelling, hand irrigate PRN no active bleeding cont with abx as ordered off anticoagulation monitor h/h cysto later ok to dc arellano Subjective Allergies: Coded Allergies: No Known Allergies (Unverified , 12/10/15) Subjective all noted, comfortable Objective Last 24 Hour Vital Signs Date Time Temp Pulse Resp B/P (MAP) Pulse Ox O2 Delivery O2 Flow Rate FiO2 02/28/18 11:08 97.8 85 16 123/60 (81) 100 02/28/18 10:24 79 18 99 Nasal Cannula 2.0 28 02/28/18 10:22 78 20 99 Nasal Cannula 2.0 28 02/28/18 08:06 85 136/70 02/28/18 08:00 2.0 02/28/18 08:00 Nasal Cannula 2.0 Nasal Cannula 2.0 02/28/18 07:40 81 02/28/18 07:38 98.9 85 17 136/70 (92) 100 02/28/18 07:02 Nasal Cannula 2.0 28 02/28/18 07:01 99 Nasal Cannula 2.0 28 02/28/18 04:44 83 18 98 Full Face 25 02/28/18 04:00 81 02/28/18 04:00 98.6 86 18 115/56 (75) 99 02/28/18 04:00 Bi-pap Bi-pap 02/28/18 04:00 25 02/28/18 02:47 80 16 97 Full Face 25 02/28/18 01:02 84 19 97 Full Face 25 02/28/18 00:00 Bi-pap Bi-pap 02/28/18 00:00 84 02/28/18 00:00 98.7 80 20 136/66 (89) 97 02/28/18 00:00 25 02/27/18 23:18 77 17 98 Full Face 25 02/27/18 20:11 97.8 82 18 122/49 (73) 98 02/27/18 20:00 Bi-pap Bi-pap 02/27/18 20:00 91 02/27/18 18:53 81 19 97 Full Face 25 10/31/18 18:53 Bi-pap 25 02/27/18 18:52 97 Bi-pap 25 02/27/18 18:00 81 19 99 28 02/27/18 16:00 25 02/27/18 16:00 Bi-pap Bi-pap 02/27/18 16:00 97.8 81 17 130/65 (86) 97 02/27/18 16:00 85 02/27/18 15:51 89 17 98 Full Face 25 02/27/18 12:29 79 18 96 21 02/27/18 12:07 97.2 84 20 105/59 (74) 98 02/27/18 12:00 Bi-pap Bi-pap 02/27/18 12:00 78 Intake and Output 02/27/18 02/28/18 19:00 07:00 Intake Total 800 ml 240 ml Output Total 1002 ml 1126 ml Balance -202 ml -886 ml Intake Oral 800 ml 240 ml Output Urine Total 1000 ml 1125 ml Stool Total 2 ml 1 ml Microbiology Date/Time Source Procedure Growth Status 02/03/18 15:30 Blood Blood Culture - Final NO GROWTH AFTER 5 DAYS Complete 02/20/18 18:40 Stool Clostridium difficile Toxin Assay - Final Complete 02/20/18 12:50 Urine,Clean Catch Urine Culture - Final NO GROWTH AFTER 48 HOURS Complete 02/03/18 15:30 Rectal Mucosa - Final NO CARBAPENEM-RESISTANT ENTEROBACTERI... Complete Current Medications Medications (Trade) Dose Ordered Sig/Isabella Route PRN Reason Start Time Stop Time Status Last Admin Dose Admin Acetaminophen (Tylenol) 650 mg Q6H PRN ORAL Mild Pain/Temp > 100.5 02/19/18 10:30 03/05/18 16:29 02/22/18 04:39 Acyclovir (Zovirax) 800 mg EVERY 6 HOURS ORAL 02/20/18 12:30 03/01/18 23:00 02/28/18 11:06 Bisacodyl (Dulcolax) 10 mg DAILYPRN PRN RECTAL Constipation 02/19/18 10:30 03/14/18 10:29 Clonidine HCl (Catapres Tab) 0.1 mg Q4H PRN ORAL SBP above 150 02/19/18 10:30 03/21/18 10:29 Diltiazem HCl (Cardizem CD) 240 mg DAILY ORAL 02/25/18 09:00 03/27/18 08:59 02/28/18 08:06 Diphenhydramine HCl (Benadryl) 25 mg Q6H PRN ORAL Itching 02/19/18 11:00 03/05/18 16:59 Fluoxetine HCl (PROzac) 20 mg DAILY ORAL 02/20/18 09:00 03/06/18 08:59 02/28/18 08:07 Pantoprazole (Protonix) 40 mg DAILY ORAL 02/27/18 09:00 03/29/18 08:59 02/28/18 08:06 Prednisone (predniSONE) 10 mg DAILY ORAL 02/27/18 09:00 03/23/18 08:59 02/28/18 08:06 Tiotropium [place] (Spiriva Inhaler) 1 puff DAILY INH 02/20/18 09:00 03/06/18 08:59 02/28/18 10:22 Vitamin A/Vitamin D (A & D Oint) 1 applic EVERY 12 HOURS TOPIC 02/19/18 21:00 03/21/18 20:59 02/28/18 08:07 Laboratory Tests 02/28/18 04:40: White Blood Count 8.2, Red Blood Count 4.53, Hemoglobin 12.9, Hematocrit 40.9, Mean Corpuscular Volume 90, Mean Corpuscular Hemoglobin 28.5, Mean Corpuscular Hemoglobin Concent 31.6L, Red Cell Distribution Width 14.5, Platelet Count 191, Mean Platelet Volume 6.1L, Neutrophils (%) (Auto) 64.4, Lymphocytes (%) (Auto) 23.6, Monocytes (%) (Auto) 6.7, Eosinophils (%) (Auto) 4.5H, Basophils (%) (Auto ) 0.8, Sodium Level 141, Potassium Level 3.6, Chloride Level 103, Carbon Dioxide Level 35H, Anion Gap 3L, Blood Urea Nitrogen 12, Creatinine 0.5L, Estimat Glomerular Filtration Rate , Glucose Level 81, Calcium Level 8.9, Magnesium Level 1.7L, Total Bilirubin 0.4, Aspartate Amino Transf (AST/SGOT) 12L , Alanine Aminotransferase (ALT/SGPT) 16, Alkaline Phosphatase 75, Pro-B-Type Natriuretic Peptide 234H, Total Protein 5.9L, Albumin 2.3L, Globulin 3.6, Albumin/Globulin Ratio 0.6L Height (Feet): 5 Height (Inches): 6.00 Weight (Pounds): 207 Objective exam stable, urine clearing renal u/s (02/19) noted Spenser Marc MD Feb 28, 2018 11:20
[2018-02-28 15:25] VITALS: BP 110/55
[2018-02-28 20:00] VITALS: BP 124/69
[2018-03-01] VITALS: BP 118/72
--- NOTE | 2018-03-01 01:30 | Progress Note ---
DATE: 02/28/2018 CARDIOLOGY PROGRESS NOTE SUBJECTIVE: The patient's condition is unchanged. She remains on BiPAP support intermittently. Monitored rhythm sinus with rare atrial ectopy. OBJECTIVE: VITAL SIGNS: Blood pressure 124/69, pulse 75, respirations 18, and afebrile. LUNGS: Coarse breath sounds. CARDIAC: Regular rhythm and rate. Normal S1, S2. ABDOMEN: Soft. Trace edema. LABORATORY DATA: White count 8.2, hemoglobin 12.9. ABG, 7.39, 59, 106. Sodium 141, potassium 3.6, bicarbonate 35, BUN 12, creatinine 0.5, and magnesium 1.7. Albumin 2.3. IMPRESSION: 1. Respiratory failure. 2. Chronic obstructive pulmonary disease. 3. Status post sepsis with shock. 4. Nonsustained atrial ectopy. 5. Hypomagnesemia. 6. Severe protein-calorie malnutrition. 7. Acute on chronic respiratory acidosis, now compensated. 8. Urinary retention. 9. Neurogenic bladder and cystitis with hematuria, resolved. PLAN: 1. IV magnesium. 2. Continue weaning efforts off BiPAP. 3. Antimicrobials per Infectious Disease senior billing consultant. 4. DVT prophylaxis. 5. No additional cardiovascular studies presently planned. Ashvin Wu M.D. DR: FELICIANO JOB#: [id number] CC:
[2018-03-01 04:00] VITALS: BP 122/75
[2018-03-01 07:36] VITALS: BP 143/73
[2018-03-01] MEDS: Vitamin A&D Oint 2oz Tube TOPIC SCH ×2 (08:08→20:45)
[2018-03-01] MEDS: dilTIAZem HCl CD 240mg cap ORAL SCH (08:08)
--- NOTE | 2018-03-01 10:15 | Urology Progress Note ---
Assessment/Plan Assessment/Plan 1. Gross hematuria, improved. 2. Urinary retention. 3. Probable neurogenic bladder. 4. Pyuria. 5. Proteinuria. 6. Possible hemorrhagic cystitis. monitor clinically no active bleeding cont with abx as ordered off anticoagulation monitor h/h cysto later consider check PVR d/w nursing staff Subjective Allergies: Coded Allergies: No Known Allergies (Unverified , 12/10/15) Subjective all noted, comfortable, arellano out and voiding, urine reported clear Objective Last 24 Hour Vital Signs Date Time Temp Pulse Resp B/P (MAP) Pulse Ox O2 Delivery O2 Flow Rate FiO2 03/01/18 09:12 82 18 97 Nasal Cannula 2.0 28 03/01/18 09:12 81 18 100 Nasal Cannula 2.0 28 03/01/18 08:08 82 143/73 03/01/18 08:00 2.0 03/01/18 08:00 Nasal Cannula 2.0 Nasal Cannula 2.0 03/01/18 07:57 85 03/01/18 07:36 97.7 82 18 143/73 (96) 99 03/01/18 06:33 Nasal Cannula 2.0 28 03/01/18 06:33 100 Nasal Cannula 2.0 28 03/01/18 04:00 98.0 81 16 122/75 (91) 99 03/01/18 04:00 76 03/01/18 04:00 Nasal Cannula 2.0 Nasal Cannula 2.0 03/01/18 04:00 2.0 03/01/18 00:00 75 03/01/18 00:00 Nasal Cannula 2.0 Nasal Cannula 2.0 03/01/18 00:00 98.1 79 16 118/72 (87) 100 03/01/18 00:00 25 02/28/18 23:14 79 20 99 Full Face 25 02/28/18 23:13 100 Nasal Cannula 2.0 28 02/28/18 23:13 Nasal Cannula 2.0 28 02/28/18 20:00 2.0 02/28/18 20:00 Nasal Cannula 2.0 Nasal Cannula 2.0 02/28/18 20:00 75 02/28/18 20:00 98.3 72 18 124/69 (87) 100 02/28/18 17:29 76 20 Nasal Cannula 2.0 02/28/18 16:00 Nasal Cannula 2.0 Nasal Cannula 2.0 02/28/18 16:00 2.0 02/28/18 15:48 75 02/28/18 15:25 98.7 75 18 110/55 (73) 100 02/28/18 12:00 2.0 02/28/18 12:00 78 02/28/18 12:00 Nasal Cannula 2.0 Nasal Cannula 2.0 02/28/18 11:08 97.8 85 16 123/60 (81) 100 02/28/18 10:24 79 18 99 Nasal Cannula 2.0 28 02/28/18 10:22 78 20 99 Nasal Cannula 2.0 28 Intake and Output 02/28/18 03/01/18 19:00 07:00 Intake Total 960 ml 200 ml Output Total 700 ml 375 ml Balance 260 ml -175 ml Intake Oral 960 ml IV Total 200 ml Output Urine Total 700 ml 375 ml # Voids 2 2 # Bowel Movements 1 3 Microbiology Date/Time Source Procedure Growth Status 02/03/18 15:30 Blood Blood Culture - Final NO GROWTH AFTER 5 DAYS Complete 02/20/18 18:40 Stool Clostridium difficile Toxin Assay - Final Complete 02/20/18 12:50 Urine,Clean Catch Urine Culture - Final NO GROWTH AFTER 48 HOURS Complete 02/03/18 15:30 Rectal Mucosa - Final NO CARBAPENEM-RESISTANT ENTEROBACTERI... Complete Current Medications Medications (Trade) Dose Ordered Sig/Isabella Route PRN Reason Start Time Stop Time Status Last Admin Dose Admin Acetaminophen (Tylenol) 650 mg Q6H PRN ORAL Mild Pain/Temp > 100.5 02/19/18 10:30 03/05/18 16:29 02/22/18 04:39 Acyclovir (Zovirax) 800 mg EVERY 6 HOURS ORAL 02/20/18 12:30 03/01/18 23:00 03/01/18 05:00 Bisacodyl (Dulcolax) 10 mg DAILYPRN PRN RECTAL Constipation 02/19/18 10:30 03/14/18 10:29 Clonidine HCl (Catapres Tab) 0.1 mg Q4H PRN ORAL SBP above 150 02/19/18 10:30 03/21/18 10:29 Diltiazem HCl (Cardizem CD) 240 mg DAILY ORAL 02/25/18 09:00 03/27/18 08:59 03/01/18 08:08 Diphenhydramine HCl (Benadryl) 25 mg Q6H PRN ORAL Itching 02/19/18 11:00 03/05/18 16:59 Fluoxetine HCl (PROzac) 20 mg DAILY ORAL 02/20/18 09:00 03/06/18 08:59 03/01/18 08:07 Pantoprazole (Protonix) 40 mg DAILY ORAL 02/27/18 09:00 03/29/18 08:59 03/01/18 08:07 Prednisone (predniSONE) 10 mg DAILY ORAL 02/27/18 09:00 03/23/18 08:59 03/01/18 08:08 Tiotropium [place] (Spiriva Inhaler) 1 puff DAILY INH 02/20/18 09:00 03/06/18 08:59 03/01/18 09:12 Vitamin A/Vitamin D (A & D Oint) 1 applic EVERY 12 HOURS TOPIC 02/19/18 21:00 03/21/18 20:59 03/01/18 08:08 Laboratory Tests 02/28/18 14:00: Arterial Blood pH 7.390, Arterial Blood Partial Pressure CO2 58.8*H, Arterial Blood Partial Pressure O2 106.5H, Arterial Blood HCO3 34.8H, Arterial Blood Oxygen Saturation 97.7, Arterial Blood Base Excess 7.9H, Tarun Test Positive Height (Feet): 5 Height (Inches): 6.00 Weight (Pounds): 207 Objective exam stable, urine clearing renal u/s (02/19) noted Spenser Marc MD Mar 01, 2018 10:15
--- NOTE | 2018-03-01 10:45 | Infectious Diseases Prog Note ---
Assessment/Plan Assessment/Plan antibiotics : acyclovir A 1. pneumonia improving 2. head lice improving 3. COPD 4. ? zoster s/p rx 5. respiratory failure P 1. d/c acyclovir 2. observe off antibiotics Subjective Constitutional: Denies: fever, chills Respiratory: Reports: shortness of breath - decreased; Denies: dry cough Gastrointestinal/Abdominal: Reports: diarrhea - soft stools; Denies: nausea, vomiting Musculoskeletal: Denies: pain Allergies: Coded Allergies: No Known Allergies (Unverified , 12/10/15) Objective Vital Signs Last 24 Hour Vital Signs Date Time Temp Pulse Resp B/P (MAP) Pulse Ox O2 Delivery O2 Flow Rate FiO2 03/01/18 09:12 82 18 97 Nasal Cannula 2.0 28 03/01/18 09:12 81 18 100 Nasal Cannula 2.0 28 03/01/18 08:08 82 143/73 03/01/18 08:00 2.0 03/01/18 08:00 Nasal Cannula 2.0 Nasal Cannula 2.0 03/01/18 07:57 85 03/01/18 07:36 97.7 82 18 143/73 (96) 99 03/01/18 06:33 Nasal Cannula 2.0 28 03/01/18 06:33 100 Nasal Cannula 2.0 28 03/01/18 04:00 98.0 81 16 122/75 (91) 99 03/01/18 04:00 76 03/01/18 04:00 Nasal Cannula 2.0 Nasal Cannula 2.0 03/01/18 04:00 2.0 03/01/18 00:00 75 03/01/18 00:00 Nasal Cannula 2.0 Nasal Cannula 2.0 03/01/18 00:00 98.1 79 16 118/72 (87) 100 03/01/18 00:00 25 02/28/18 23:14 79 20 99 Full Face 25 02/28/18 23:13 100 Nasal Cannula 2.0 28 02/28/18 23:13 Nasal Cannula 2.0 28 02/28/18 20:00 2.0 02/28/18 20:00 Nasal Cannula 2.0 Nasal Cannula 2.0 02/28/18 20:00 75 02/28/18 20:00 98.3 72 18 124/69 (87) 100 02/28/18 17:29 76 20 Nasal Cannula 2.0 02/28/18 16:00 Nasal Cannula 2.0 Nasal Cannula 2.0 02/28/18 16:00 2.0 02/28/18 15:48 75 02/28/18 15:25 98.7 75 18 110/55 (73) 100 02/28/18 12:00 2.0 02/28/18 12:00 78 02/28/18 12:00 Nasal Cannula 2.0 Nasal Cannula 2.0 02/28/18 11:08 97.8 85 16 123/60 (81) 100 Height (Feet): 5 Height (Inches): 6.00 Weight (Pounds): 207 Laboratory Tests Test 02/28/18 14:00 Arterial Blood pH 7.390 (7.350-7.450) Arterial Blood Partial Pressure CO2 58.8 mmHg (35.0-45.0) *H Arterial Blood Partial Pressure O2 106.5 mmHg (75.0-100.0) H Arterial Blood HCO3 34.8 mmol/L (22.0-26.0) H Arterial Blood Oxygen Saturation 97.7 % (95-100) Arterial Blood Base Excess 7.9 (-2-2) H Tarun Test Positive Current Medications Medications (Trade) Dose Ordered Sig/Isabella Route PRN Reason Start Time Stop Time Status Last Admin Dose Admin Acetaminophen (Tylenol) 650 mg Q6H PRN ORAL Mild Pain/Temp > 100.5 02/19/18 10:30 03/05/18 16:29 02/22/18 04:39 Acyclovir (Zovirax) 800 mg EVERY 6 HOURS ORAL 02/20/18 12:30 03/01/18 23:00 03/01/18 05:00 Bisacodyl (Dulcolax) 10 mg DAILYPRN PRN RECTAL Constipation 02/19/18 10:30 03/14/18 10:29 Clonidine HCl (Catapres Tab) 0.1 mg Q4H PRN ORAL SBP above 150 02/19/18 10:30 03/21/18 10:29 Diltiazem HCl (Cardizem CD) 240 mg DAILY ORAL 02/25/18 09:00 03/27/18 08:59 03/01/18 08:08 Diphenhydramine HCl (Benadryl) 25 mg Q6H PRN ORAL Itching 02/19/18 11:00 03/05/18 16:59 Fluoxetine HCl (PROzac) 20 mg DAILY ORAL 02/20/18 09:00 03/06/18 08:59 03/01/18 08:07 Pantoprazole (Protonix) 40 mg DAILY ORAL 02/27/18 09:00 03/29/18 08:59 03/01/18 08:07 Prednisone (predniSONE) 10 mg DAILY ORAL 02/27/18 09:00 03/23/18 08:59 03/01/18 08:08 Tiotropium [place] (Spiriva Inhaler) 1 puff DAILY INH 02/20/18 09:00 03/06/18 08:59 03/01/18 09:12 Vitamin A/Vitamin D (A & D Oint) 1 applic EVERY 12 HOURS TOPIC 02/19/18 21:00 03/21/18 20:59 03/01/18 08:08 Radha Macias MD Mar 01, 2018 10:45
[2018-03-01 12:00] VITALS: BP 146/72
--- NOTE | 2018-03-01 14:29 | General Progress Note ---
Assessment/Plan Problem List: (1) COPD exacerbation ICD Codes: J44.1 - Chronic obstructive pulmonary disease with (acute) exacerbation SNOMED: 970462754 (2) HTN (hypertension) ICD Codes: I10 - Essential (primary) hypertension SNOMED: 12047682 (3) Hypoxia ICD Codes: R09.02 - Hypoxemia SNOMED: 991176779 (4) Elevated troponin ICD Codes: R74.8 - Abnormal levels of other serum enzymes SNOMED: 624293822, 785222998, 273304010 (5) Renal insufficiency ICD Codes: N28.9 - Disorder of kidney and ureter, unspecified SNOMED: 009764063, 814647618 (6) Respiratory failure ICD Codes: J96.90 - Respiratory failure, unspecified, unspecified whether with hypoxia or hypercapnia SNOMED: 399766792 Qualifiers: Qualified Codes: J96.02 - Acute respiratory failure with hypercapnia (7) Right lower lobe pneumonia ICD Codes: J18.1 - Lobar pneumonia, unspecified organism SNOMED: 450320123 Qualifiers: Qualified Codes: J18.1 - Lobar pneumonia, unspecified organism Status: stable, progressing Assessment/Plan resp rx o2 zoster rx monitor cxr po steroids bipap per pulm(try nocturnal) keep dry ID appreciated improving lice treated and resolved. no isolation needed refer to ltach or snf with nocturnal bipap Subjective ROS Limited/Unobtainable: No Constitutional: Reports: malaise, weakness HEENT: Reports: no symptoms Cardiovascular: Reports: no symptoms Respiratory: Reports: no symptoms Gastrointestinal/Abdominal: Reports: no symptoms Genitourinary: Reports: no symptoms Neurologic/Psychiatric: Reports: no symptoms Endocrine: Reports: no symptoms Hematologic/Lymphatic: Reports: no symptoms Allergies: Coded Allergies: No Known Allergies (Unverified , 12/10/15) All Systems: reviewed and negative except above Subjective no complaints. off bipap currently. used bipap most of the night, alert. no new complaints. denies sob. Objective Last 24 Hour Vital Signs Date Time Temp Pulse Resp B/P (MAP) Pulse Ox O2 Delivery O2 Flow Rate FiO2 03/01/18 12:00 Nasal Cannula 2.0 Nasal Cannula 2.0 03/01/18 12:00 74 03/01/18 12:00 97.3 87 17 146/72 (96) 99 03/01/18 12:00 2.0 03/01/18 09:12 82 18 97 Nasal Cannula 2.0 28 03/01/18 09:12 81 18 100 Nasal Cannula 2.0 28 03/01/18 08:08 82 143/73 03/01/18 08:00 2.0 03/01/18 08:00 Nasal Cannula 2.0 Nasal Cannula 2.0 03/01/18 07:57 85 03/01/18 07:36 97.7 82 18 143/73 (96) 99 03/01/18 06:33 Nasal Cannula 2.0 28 03/01/18 06:33 100 Nasal Cannula 2.0 28 03/01/18 04:00 98.0 81 16 122/75 (91) 99 03/01/18 04:00 76 03/01/18 04:00 Nasal Cannula 2.0 Nasal Cannula 2.0 03/01/18 04:00 2.0 03/01/18 00:00 75 03/01/18 00:00 Nasal Cannula 2.0 Nasal Cannula 2.0 03/01/18 00:00 98.1 79 16 118/72 (87) 100 03/01/18 00:00 25 02/28/18 23:14 79 20 99 Full Face 25 02/28/18 23:13 100 Nasal Cannula 2.0 28 02/28/18 23:13 Nasal Cannula 2.0 28 02/28/18 20:00 2.0 02/28/18 20:00 Nasal Cannula 2.0 Nasal Cannula 2.0 02/28/18 20:00 75 02/28/18 20:00 98.3 72 18 124/69 (87) 100 02/28/18 17:29 76 20 Nasal Cannula 2.0 02/28/18 16:00 Nasal Cannula 2.0 Nasal Cannula 2.0 02/28/18 16:00 2.0 02/28/18 15:48 75 02/28/18 15:25 98.7 75 18 110/55 (73) 100 Intake and Output 02/28/18 03/01/18 19:00 07:00 Intake Total 960 ml 200 ml Output Total 700 ml 375 ml Balance 260 ml -175 ml Intake Oral 960 ml IV Total 200 ml Output Urine Total 700 ml 375 ml # Voids 2 2 # Bowel Movements 1 3 Height (Feet): 5 Height (Inches): 6.00 Weight (Pounds): 207 Objective General Appearance: WD/WN, resting. on nasal cannula, opens eyes. alert. follows commands Neck: supple Cardiovascular: regular rhythm Respiratory/Chest: lungs mostly clear, few rhonchi Abdomen: normal bowel sounds, non tender, soft, no organomegaly Edema: no edema noted Arm (L), no edema noted Arm (R), no edema noted Leg (L), no edema noted Leg (R), no edema noted Pedal (L), no edema noted Pedal (R), no edema noted Generalized Manan Byrd MD Mar 01, 2018 14:29
--- NOTE | 2018-03-01 14:31 | Pulmonology Progress Note ---
Assessment/Plan Assessment/Plan PULMONARY PROGRESS NOTE IMPRESSION: Acute respiratory failure, COPD with acute exacerbation, respiratory acidosis and associated hypoxemia, cardiomegaly, pleural effusion and pulmonary edema, protein-calorie malnutrition. Improved SOB, on BiPAP PRN CXR: 1. Subsegmental atelectasis versus infiltrate in the left lung base/retrocardiac region, stable. 2. Blunting of the left breast phrenic angle suggesting a small left pleural effusion. PLAN seen earlier respiratory care reviewed IV antibiotics IV steroids taper- to prednisone supportive care as able monitor closely for now and try to wean daily guarded feeds position change and monitor for change skin monitoring DVT prophylaxis hope to avoid trach medications/laboratory data/nursing notes/ICU care reviewed in detail note reviewed and edited care discussed with RN and RT ICU time spent 40 minutes Critical Care - Subjective Interval Events: stable and off vent no distress on oxygen Condition: improving EKG Rhythm: Sinus Rhythm I&O: Intake and Output 02/18/18 02/19/18 19:00 07:00 Intake Total 880.0 ml 357.5 ml Output Total 1460 ml 600 ml Balance -580.0 ml -242.5 ml IV Total 220.0 ml 137.5 ml Tube Feeding 660 ml 220 ml Output Urine Total 1460 ml 600 ml # Bowel Movements 2 Critical Care - Objective CXR: minimal atelectasis ET-Tube: 7.5 ET Position: 24 Vital Signs noted Date Time Temp Pulse Resp B/P (MAP) Pulse Ox O2 Delivery O2 Flow Rate FiO2 02/19/18 19:20 Nasal Cannula 2.0 28 02/19/18 19:20 82 16 98 Nasal Cannula 2.0 28 02/19/18 19:20 98 Nasal Cannula 2.0 28 02/19/18 17:10 81 02/19/18 16:00 97.8 76 16 155/80 (105) 99 97.8 02/19/18 16:00 78 02/19/18 16:00 Nasal Cannula 2.0 Nasal Cannula 2.0 02/19/18 14:53 85 147/93 02/19/18 13:55 85 16 100 Nasal Cannula 2.0 28 02/19/18 13:45 84 16 98 Nasal Cannula 2.0 28 02/19/18 12:00 76 02/19/18 12:00 Nasal Cannula 2.0 Nasal Cannula 2.0 02/19/18 12:00 97.5 76 16 147/93 (111) 100 97.5 02/19/18 10:20 02/19/18 09:00 80 15 144/78 (100) 100 02/19/18 08:00 77 21 155/80 (105) 99 02/19/18 08:00 85 02/19/18 08:00 Nasal Cannula 2.0 Nasal Cannula 2.0 02/19/18 07:48 76 16 100 Nasal Cannula 2.0 28 02/19/18 07:46 Nasal Cannula 3.0 32 02/19/18 07:39 87 16 98 Nasal Cannula 2.0 28 02/19/18 07:38 98 Nasal Cannula 3.0 32 02/19/18 07:00 98.4 78 22 156/88 (110) 99 98.4 02/19/18 06:12 80 164/83 02/19/18 06:00 79 22 164/83 (110) 99 02/19/18 05:00 79 22 161/91 (114) 99 02/19/18 04:00 Nasal Cannula 2.0 Nasal Cannula 2.0 02/19/18 04:00 78 22 166/84 (111) 99 02/19/18 04:00 80 02/19/18 03:00 80 22 166/82 (110) 99 02/19/18 02:00 82 22 146/90 (108) 99 02/19/18 01:00 98.2 81 22 148/69 (95) 99 98.2 02/19/18 00:58 73 17 100 Nasal Cannula 2.0 28 02/19/18 00:57 28 02/19/18 00:50 76 17 99 Nasal Cannula 2.0 28 02/19/18 00:00 85 02/19/18 00:00 Nasal Cannula 2.0 Nasal Cannula 2.0 02/19/18 00:00 76 22 150/79 (102) 99 02/18/18 23:00 91 22 146/93 (110) 99 02/18/18 22:00 88 22 130/65 (86) 99 02/18/18 21:55 91 140/80 02/18/18 21:00 98.0 93 22 140/80 (100) 99 98.0 02/18/18 20:00 83 02/18/18 20:00 90 22 124/71 (88) 99 02/18/18 20:00 Nasal Cannula 2.0 Nasal Cannula 2.0 Labs: Labs Test 02/17/18 18:17 02/18/18 04:00 02/18/18 14:11 02/19/18 04:54 Urine Color Red Urine Appearance Turbid Urine pH 7 (4.5-8.0) Urine Specific [place] 1.010 (1.005-1.035) Urine Protein 3+ (NEGATIVE) Urine Glucose (UA) Negative (NEGATIVE) Urine Ketones Negative (NEGATIVE) Urine Blood 5+ (NEGATIVE) Urine Nitrite Negative (NEGATIVE) Urine Bilirubin Negative (NEGATIVE) Urine Urobilinogen Normal MG/DL (0.0-1.0) Urine Leukocyte Esterase 3+ (NEGATIVE) Urine RBC Tntc /HPF (0 - 2) Urine WBC 15-20 /HPF (0 - 2) Urine Squamous Epithelial Cells Few /LPF (NONE/OCC) Urine Bacteria Few /HPF (NONE) White Blood Count 11.1 K/UL (4.8-10.8) 10.0 K/UL (4.8-10.8) Red Blood Count 5.20 M/UL (4.20-5.40) 5.32 M/UL (4.20-5.40) Hemoglobin 14.8 G/DL (12.0-16.0) 14.8 G/DL (12.0-16.0) Hematocrit 46.1 % (37.0-47.0) 47.8 % (37.0-47.0) Mean Corpuscular Volume 89 FL (80-99) 90 FL (80-99) Mean Corpuscular Hemoglobin 28.4 PG (27.0-31.0) 27.8 PG (27.0-31.0) Mean Corpuscular Hemoglobin Concent 32.0 G/DL (32.0-36.0) 30.9 G/DL (32.0-36.0) Red Cell Distribution Width 14.3 % (11.6-14.8) 14.1 % (11.6-14.8) Platelet Count 141 K/UL (150-450) 137 K/UL (150-450) Mean Platelet Volume 6.8 FL (6.5-10.1) 7.3 FL (6.5-10.1) Neutrophils (%) (Auto) % (45.0-75.0) % (45.0-75.0) Lymphocytes (%) (Auto) % (20.0-45.0) % (20.0-45.0) Monocytes (%) (Auto) % (1.0-10.0) % (1.0-10.0) Eosinophils (%) (Auto) % (0.0-3.0) % (0.0-3.0) Basophils (%) (Auto) % (0.0-2.0) % (0.0-2.0) Differential Total Cells Counted 100 100 Neutrophils % (Manual) 91 % (45-75) 88 % (45-75) Lymphocytes % (Manual) 3 % (20-45) 5 % (20-45) Monocytes % (Manual) 6 % (1-10) 7 % (1-10) Eosinophils % (Manual) 0 % (0-3) 0 % (0-3) Basophils % (Manual) 0 % (0-2) 0 % (0-2) Band Neutrophils 0 % (0-8) 0 % (0-8) Platelet Estimate Decreased Decreased Platelet Morphology Normal Normal Red Blood Cell Morphology Normal Normal Sodium Level 140 MMOL/L (136-145) 142 MMOL/L (136-145) Potassium Level 3.8 MMOL/L (3.5-5.1) 3.8 MMOL/L (3.5-5.1) Chloride Level 104 MMOL/L (98-107) 103 MMOL/L (98-107) Carbon Dioxide Level 31 MMOL/L (21-32) 34 MMOL/L (21-32) Anion Gap 5 mmol/L (5-15) 5 mmol/L (5-15) Blood Urea Nitrogen 17 mg/dL (7-18) 19 mg/dL (7-18) Creatinine 0.6 MG/DL (0.55-1.30) 0.5 MG/DL (0.55-1.30) Estimat Glomerular Filtration Rate mL/min (>60) mL/min (>60) Glucose Level 125 MG/DL (74-106) 121 MG/DL (74-106) Calcium Level 8.9 MG/DL (8.5-10.1) 9.2 MG/DL (8.5-10.1) Total Bilirubin 0.3 MG/DL (0.2-1.0) 0.4 MG/DL (0.2-1.0) Aspartate Amino Transf (AST/SGOT) 8 U/L (15-37) 5 U/L (15-37) Alanine Aminotransferase (ALT/SGPT) 15 U/L (12-78) 17 U/L (12-78) Alkaline Phosphatase 82 U/L (46-116) 76 U/L (46-116) Total Protein 5.9 G/DL (6.4-8.2) 6.1 G/DL (6.4-8.2) Albumin 2.3 G/DL (3.4-5.0) 2.5 G/DL (3.4-5.0) Globulin 3.6 g/dL 3.6 g/dL Albumin/Globulin Ratio 0.6 (1.0-2.7) 0.7 (1.0-2.7) Arterial Blood pH 7.450 (7.350-7.450) Arterial Blood Partial Pressure CO2 48.4 mmHg (35.0-45.0) Arterial Blood Partial Pressure O2 86.4 mmHg (75.0-100.0) Arterial Blood HCO3 33.3 mmol/L (22.0-26.0) Arterial Blood Oxygen Saturation 97.0 % (95-100) Arterial Blood Base Excess 7.9 (-2-2) Tarun Test Positive Phosphorus Level 2.3 MG/DL (2.5-4.9) Magnesium Level 1.9 MG/DL (1.8-2.4) Pro-B-Type Natriuretic Peptide 449 pg/mL (0-125) Objective: GENERAL: sedated/withdrawn; off vent; on NC NECK: Supple. No adenopathy. No jugular venous distention. orally intubated LUNGS: Moderate breath sounds. no rhonchi. No wheezes. stable CARDIAC: S1 and S2. Regular rhythm without murmurs, rubs, or gallops. ABDOMEN: Soft, nontender, nondistended. no HSM; feeding tube in place EXTREMITIES: No cyanosis, clubbing; trace edema. NEUROLOGIC: Grossly nonfocal, sedated reviewed and examined Micro: Microbiology Date/Time Source Procedure Growth Status 02/17/18 18:17 Indwelling Cath Urine Culture - Preliminary NO GROWTH Resulted Subjective ROS Limited/Unobtainable: No Allergies: Coded Allergies: No Known Allergies (Unverified , 12/10/15) Objective Last 24 Hour Vital Signs Date Time Temp Pulse Resp B/P (MAP) Pulse Ox O2 Delivery O2 Flow Rate FiO2 03/01/18 12:00 Nasal Cannula 2.0 Nasal Cannula 2.0 03/01/18 12:00 74 03/01/18 12:00 97.3 87 17 146/72 (96) 99 03/01/18 12:00 2.0 03/01/18 09:12 82 18 97 Nasal Cannula 2.0 28 03/01/18 09:12 81 18 100 Nasal Cannula 2.0 28 03/01/18 08:08 82 143/73 03/01/18 08:00 2.0 03/01/18 08:00 Nasal Cannula 2.0 Nasal Cannula 2.0 03/01/18 07:57 85 03/01/18 07:36 97.7 82 18 143/73 (96) 99 03/01/18 06:33 Nasal Cannula 2.0 28 03/01/18 06:33 100 Nasal Cannula 2.0 28 03/01/18 04:00 98.0 81 16 122/75 (91) 99 03/01/18 04:00 76 03/01/18 04:00 Nasal Cannula 2.0 Nasal Cannula 2.0 03/01/18 04:00 2.0 03/01/18 00:00 75 03/01/18 00:00 Nasal Cannula 2.0 Nasal Cannula 2.0 03/01/18 00:00 98.1 79 16 118/72 (87) 100 03/01/18 00:00 25 02/28/18 23:14 79 20 99 Full Face 25 02/28/18 23:13 100 Nasal Cannula 2.0 28 02/28/18 23:13 Nasal Cannula 2.0 28 02/28/18 20:00 2.0 02/28/18 20:00 Nasal Cannula 2.0 Nasal Cannula 2.0 02/28/18 20:00 75 02/28/18 20:00 98.3 72 18 124/69 (87) 100 02/28/18 17:29 76 20 Nasal Cannula 2.0 02/28/18 16:00 Nasal Cannula 2.0 Nasal Cannula 2.0 02/28/18 16:00 2.0 02/28/18 15:48 75 02/28/18 15:25 98.7 75 18 110/55 (73) 100 Intake and Output 02/28/18 03/01/18 19:00 07:00 Intake Total 960 ml 200 ml Output Total 700 ml 375 ml Balance 260 ml -175 ml Intake Oral 960 ml IV Total 200 ml Output Urine Total 700 ml 375 ml # Voids 2 2 # Bowel Movements 1 3 Current Medications Medications (Trade) Dose Ordered Sig/Isabella Route PRN Reason Start Time Stop Time Status Last Admin Dose Admin Acetaminophen (Tylenol) 650 mg Q6H PRN ORAL Mild Pain/Temp > 100.5 02/19/18 10:30 03/05/18 16:29 02/22/18 04:39 Bisacodyl (Dulcolax) 10 mg DAILYPRN PRN RECTAL Constipation 02/19/18 10:30 03/14/18 10:29 Clonidine HCl (Catapres Tab) 0.1 mg Q4H PRN ORAL SBP above 150 02/19/18 10:30 03/21/18 10:29 Diltiazem HCl (Cardizem CD) 240 mg DAILY ORAL 02/25/18 09:00 03/27/18 08:59 03/01/18 08:08 Diphenhydramine HCl (Benadryl) 25 mg Q6H PRN ORAL Itching 02/19/18 11:00 03/05/18 16:59 Fluoxetine HCl (PROzac) 20 mg DAILY ORAL 02/20/18 09:00 03/06/18 08:59 03/01/18 08:07 Pantoprazole (Protonix) 40 mg DAILY ORAL 02/27/18 09:00 03/29/18 08:59 03/01/18 08:07 Prednisone (predniSONE) 10 mg DAILY ORAL 02/27/18 09:00 03/23/18 08:59 03/01/18 08:08 Tiotropium [place] (Spiriva Inhaler) 1 puff DAILY INH 02/20/18 09:00 03/06/18 08:59 03/01/18 09:12 Vitamin A/Vitamin D (A & D Oint) 1 applic EVERY 12 HOURS TOPIC 02/19/18 21:00 03/21/18 20:59 03/01/18 08:08 Ashvin Serrano MD Mar 01, 2018 14:31
[2018-03-01 16:00] VITALS: BP 118/70
[2018-03-01 20:00] VITALS: BP 126/69
[2018-03-02] VITALS: BP 142/72
[2018-03-02 04:00] VITALS: BP 138/70
[2018-03-02 07:12] VITALS: BP 145/71
[2018-03-02] MEDS: Vitamin A&D Oint 2oz Tube TOPIC SCH ×2 (08:26→21:09)
[2018-03-02] MEDS: dilTIAZem HCl CD 240mg cap ORAL SCH (08:26)
--- NOTE | 2018-03-02 09:05 | General Progress Note ---
Assessment/Plan Problem List: (1) COPD exacerbation ICD Codes: J44.1 - Chronic obstructive pulmonary disease with (acute) exacerbation SNOMED: 964768995 (2) HTN (hypertension) ICD Codes: I10 - Essential (primary) hypertension SNOMED: 60422558 (3) Hypoxia ICD Codes: R09.02 - Hypoxemia SNOMED: 906775618 (4) Elevated troponin ICD Codes: R74.8 - Abnormal levels of other serum enzymes SNOMED: 482451985, 553416489, 087378640 (5) Renal insufficiency ICD Codes: N28.9 - Disorder of kidney and ureter, unspecified SNOMED: 076655094, 214490034 (6) Respiratory failure ICD Codes: J96.90 - Respiratory failure, unspecified, unspecified whether with hypoxia or hypercapnia SNOMED: 052457141 Qualifiers: Qualified Codes: J96.02 - Acute respiratory failure with hypercapnia (7) Right lower lobe pneumonia ICD Codes: J18.1 - Lobar pneumonia, unspecified organism SNOMED: 636398572 Qualifiers: Qualified Codes: J18.1 - Lobar pneumonia, unspecified organism Status: stable, progressing Assessment/Plan resp rx o2 zoster rx monitor cxr po steroids bipap per pulm(try nocturnal) keep dry ID appreciated improving lice treated and resolved. no isolation needed refer to ltach or snf with nocturnal bipap Subjective ROS Limited/Unobtainable: No Constitutional: Reports: malaise, weakness HEENT: Reports: no symptoms Cardiovascular: Reports: no symptoms Respiratory: Reports: no symptoms Gastrointestinal/Abdominal: Reports: no symptoms Genitourinary: Reports: no symptoms Neurologic/Psychiatric: Reports: pre-existing deficit Endocrine: Reports: no symptoms Hematologic/Lymphatic: Reports: no symptoms Allergies: Coded Allergies: No Known Allergies (Unverified , 12/10/15) All Systems: reviewed and negative except above Subjective no complaints. off bipap currently. used bipap most of the night, alert. no new complaints. denies sob. still waiting for snf bed Objective Last 24 Hour Vital Signs Date Time Temp Pulse Resp B/P (MAP) Pulse Ox O2 Delivery O2 Flow Rate FiO2 03/02/18 08:54 95 20 100 Nasal Cannula 2.0 28 03/02/18 08:54 98 20 100 Nasal Cannula 2.0 28 03/02/18 08:52 Nasal Cannula 2.0 28 03/02/18 08:52 100 Nasal Cannula 2.0 28 03/02/18 08:26 77 145/71 03/02/18 08:00 79 03/02/18 07:12 97.7 77 19 145/71 (95) 100 03/02/18 04:00 2.0 25 03/02/18 04:00 97.6 73 20 138/70 (92) 100 03/02/18 04:00 Bi-pap 2.0 Nasal Cannula 2.0 03/02/18 04:00 74 03/02/18 02:37 66 17 98 Facial 25 03/02/18 01:34 78 21 99 Full Face 25 03/02/18 00:36 2.0 25 03/02/18 00:00 97.2 82 20 142/72 (95) 100 03/02/18 00:00 85 03/02/18 00:00 Nasal Cannula 2.0 Nasal Cannula 2.0 03/01/18 23:22 81 18 99 Full Face 25 03/01/18 23:00 2.0 25 03/01/18 20:35 Nasal Cannula 2.0 28 03/01/18 20:35 99 Nasal Cannula 2.0 28 03/01/18 20:00 97.9 82 20 126/69 (88) 100 03/01/18 20:00 82 03/01/18 20:00 Nasal Cannula 2.0 Nasal Cannula 2.0 03/01/18 16:00 Nasal Cannula 2.0 Nasal Cannula 2.0 03/01/18 16:00 2.0 03/01/18 16:00 98.1 74 19 118/70 (86) 100 03/01/18 15:36 74 03/01/18 12:00 Nasal Cannula 2.0 Nasal Cannula 2.0 03/01/18 12:00 74 03/01/18 12:00 97.3 87 17 146/72 (96) 99 03/01/18 12:00 2.0 03/01/18 09:12 82 18 97 Nasal Cannula 2.0 28 03/01/18 09:12 81 18 100 Nasal Cannula 2.0 28 Intake and Output 03/01/18 03/02/18 18:59 06:59 Intake Total 960 ml 420 ml Output Total 225 ml 1180 ml Balance 735 ml -760 ml Intake Oral 960 ml 420 ml Output Urine Total 225 ml 1180 ml # Voids 1 # Bowel Movements 1 1 Height (Feet): 5 Height (Inches): 6.00 Weight (Pounds): 205 Objective General Appearance: WD/WN, resting. on nasal cannula, opens eyes. alert. follows commands Neck: supple Cardiovascular: regular rhythm Respiratory/Chest: lungs mostly clear, few rhonchi Abdomen: normal bowel sounds, non tender, soft, no organomegaly Edema: no edema noted Arm (L), no edema noted Arm (R), no edema noted Leg (L), no edema noted Leg (R), no edema noted Pedal (L), no edema noted Pedal (R), no edema noted Generalized Manan Byrd MD Mar 02, 2018 09:05
--- NOTE | 2018-03-02 10:26 | Urology Progress Note ---
Assessment/Plan Assessment/Plan 1. Gross hematuria, improved. 2. Urinary retention. 3. Probable neurogenic bladder. 4. Pyuria. 5. Proteinuria. 6. Possible hemorrhagic cystitis. monitor clinically no active bleeding cont with abx as ordered off anticoagulation monitor h/h cysto later consider check PVR Subjective Allergies: Coded Allergies: No Known Allergies (Unverified , 12/10/15) Subjective all noted, comfortable, voiding, urine reportedly clear Objective Last 24 Hour Vital Signs Date Time Temp Pulse Resp B/P (MAP) Pulse Ox O2 Delivery O2 Flow Rate FiO2 03/02/18 08:54 95 20 100 Nasal Cannula 2.0 28 03/02/18 08:54 98 20 100 Nasal Cannula 2.0 28 03/02/18 08:52 Nasal Cannula 2.0 28 03/02/18 08:52 100 Nasal Cannula 2.0 28 03/02/18 08:26 77 145/71 03/02/18 08:00 79 03/02/18 08:00 Nasal Cannula 2.0 Nasal Cannula 2.0 03/02/18 08:00 2.0 03/02/18 07:12 97.7 77 19 145/71 (95) 100 03/02/18 04:00 2.0 25 03/02/18 04:00 97.6 73 20 138/70 (92) 100 03/02/18 04:00 Bi-pap 2.0 Nasal Cannula 2.0 03/02/18 04:00 74 03/02/18 02:37 66 17 98 Facial 25 03/02/18 01:34 78 21 99 Full Face 25 03/02/18 00:36 2.0 25 03/02/18 00:00 97.2 82 20 142/72 (95) 100 03/02/18 00:00 85 03/02/18 00:00 Nasal Cannula 2.0 Nasal Cannula 2.0 03/01/18 23:22 81 18 99 Full Face 25 03/01/18 23:00 2.0 25 03/01/18 20:35 Nasal Cannula 2.0 28 03/01/18 20:35 99 Nasal Cannula 2.0 28 03/01/18 20:00 97.9 82 20 126/69 (88) 100 03/01/18 20:00 82 03/01/18 20:00 Nasal Cannula 2.0 Nasal Cannula 2.0 03/01/18 16:00 Nasal Cannula 2.0 Nasal Cannula 2.0 03/01/18 16:00 2.0 03/01/18 16:00 98.1 74 19 118/70 (86) 100 03/01/18 15:36 74 03/01/18 12:00 Nasal Cannula 2.0 Nasal Cannula 2.0 03/01/18 12:00 74 03/01/18 12:00 97.3 87 17 146/72 (96) 99 03/01/18 12:00 2.0 Intake and Output 03/01/18 03/02/18 18:59 06:59 Intake Total 960 ml 420 ml Output Total 225 ml 1180 ml Balance 735 ml -760 ml Intake Oral 960 ml 420 ml Output Urine Total 225 ml 1180 ml # Voids 1 # Bowel Movements 1 1 Microbiology Date/Time Source Procedure Growth Status 02/03/18 15:30 Blood Blood Culture - Final NO GROWTH AFTER 5 DAYS Complete 02/20/18 18:40 Stool Clostridium difficile Toxin Assay - Final Complete 02/20/18 12:50 Urine,Clean Catch Urine Culture - Final NO GROWTH AFTER 48 HOURS Complete 02/03/18 15:30 Rectal Mucosa - Final NO CARBAPENEM-RESISTANT ENTEROBACTERI... Complete Current Medications Medications (Trade) Dose Ordered Sig/Isabella Route PRN Reason Start Time Stop Time Status Last Admin Dose Admin Acetaminophen (Tylenol) 650 mg Q6H PRN ORAL Mild Pain/Temp > 100.5 02/19/18 10:30 03/05/18 16:29 02/22/18 04:39 Bisacodyl (Dulcolax) 10 mg DAILYPRN PRN RECTAL Constipation 02/19/18 10:30 03/14/18 10:29 Clonidine HCl (Catapres Tab) 0.1 mg Q4H PRN ORAL SBP above 150 02/19/18 10:30 03/21/18 10:29 Diltiazem HCl (Cardizem CD) 240 mg DAILY ORAL 02/25/18 09:00 03/27/18 08:59 03/02/18 08:26 Diphenhydramine HCl (Benadryl) 25 mg Q6H PRN ORAL Itching 02/19/18 11:00 03/05/18 16:59 03/02/18 09:26 Fluoxetine HCl (PROzac) 20 mg DAILY ORAL 02/20/18 09:00 03/06/18 08:59 03/02/18 08:25 Pantoprazole (Protonix) 40 mg DAILY ORAL 02/27/18 09:00 03/29/18 08:59 03/02/18 08:26 Prednisone (predniSONE) 10 mg DAILY ORAL 02/27/18 09:00 03/23/18 08:59 03/02/18 08:26 Tiotropium [place] (Spiriva Inhaler) 1 puff DAILY INH 02/20/18 09:00 03/06/18 08:59 03/02/18 08:53 Vitamin A/Vitamin D (A & D Oint) 1 applic EVERY 12 HOURS TOPIC 02/19/18 21:00 03/21/18 20:59 03/02/18 08:26 Height (Feet): 5 Height (Inches): 6.00 Weight (Pounds): 205 Objective exam stable renal u/s (02/19) noted Spenser Marc MD Mar 02, 2018 10:26
--- NOTE | 2018-03-02 10:38 | Critical Care Progress Note ---
Assessment/Plan Assessment/Plan IMPRESSION: Acute on chronic respiratory failure, COPD with acute exacerbation, chronic respiratory acidosis and associated hypoxemia, cardiomegaly, pleural effusion and pulmonary edema, protein-calorie malnutrition. PLAN exam reviewed respiratory care reviewed supportive care as able monitor closely for now and use BIPAP QHS as tolerated guarded feeds position change and monitor for change skin monitoring DVT prophylaxis monitor acid base possible LTAC prednisone to off medications/laboratory data/nursing notes reviewed in detail note reviewed and edited care discussed with RN and RT Critical Care - Subjective ROS Limited/Unobtainable: Yes Condition: stable EKG Rhythm: Sinus Rhythm I&O: Intake and Output 03/01/18 03/02/18 18:59 06:59 Intake Total 960 ml 420 ml Output Total 225 ml 1180 ml Balance 735 ml -760 ml Intake Oral 960 ml 420 ml Output Urine Total 225 ml 1180 ml # Voids 1 # Bowel Movements 1 1 Critical Care - Objective ET-Tube: 7.5 ET Position: 24 Last 24 Hour Vital Signs Date Time Temp Pulse Resp B/P (MAP) Pulse Ox O2 Delivery O2 Flow Rate FiO2 03/02/18 08:54 95 20 100 Nasal Cannula 2.0 28 03/02/18 08:54 98 20 100 Nasal Cannula 2.0 28 03/02/18 08:52 Nasal Cannula 2.0 28 03/02/18 08:52 100 Nasal Cannula 2.0 28 03/02/18 08:26 77 145/71 03/02/18 08:00 79 03/02/18 08:00 Nasal Cannula 2.0 Nasal Cannula 2.0 03/02/18 08:00 2.0 03/02/18 07:12 97.7 77 19 145/71 (95) 100 03/02/18 04:00 2.0 25 03/02/18 04:00 97.6 73 20 138/70 (92) 100 03/02/18 04:00 Bi-pap 2.0 Nasal Cannula 2.0 03/02/18 04:00 74 03/02/18 02:37 66 17 98 Facial 25 03/02/18 01:34 78 21 99 Full Face 25 03/02/18 00:36 2.0 25 03/02/18 00:00 97.2 82 20 142/72 (95) 100 03/02/18 00:00 85 03/02/18 00:00 Nasal Cannula 2.0 Nasal Cannula 2.0 03/01/18 23:22 81 18 99 Full Face 25 03/01/18 23:00 2.0 25 03/01/18 20:35 Nasal Cannula 2.0 28 03/01/18 20:35 99 Nasal Cannula 2.0 28 03/01/18 20:00 97.9 82 20 126/69 (88) 100 03/01/18 20:00 82 03/01/18 20:00 Nasal Cannula 2.0 Nasal Cannula 2.0 03/01/18 16:00 Nasal Cannula 2.0 Nasal Cannula 2.0 03/01/18 16:00 2.0 03/01/18 16:00 98.1 74 19 118/70 (86) 100 03/01/18 15:36 74 03/01/18 12:00 Nasal Cannula 2.0 Nasal Cannula 2.0 03/01/18 12:00 74 03/01/18 12:00 97.3 87 17 146/72 (96) 99 03/01/18 12:00 2.0 Objective: GENERAL: awake; no distress; on oxygen no distress NECK: Supple. No adenopathy. No jugular venous distention. orally intubated LUNGS: Moderate breath sounds. no rhonchi. No wheezes. stable CARDIAC: S1 and S2. Regular rhythm without murmurs, rubs, or gallops. ABDOMEN: Soft, nontender, nondistended. no HSM; feeding tube in place EXTREMITIES: No cyanosis, clubbing; trace edema. NEUROLOGIC: Grossly nonfocal, awake reviewed and examined Accucheck: 140 Mk Billings MD Mar 02, 2018 10:38
[2018-03-02 12:00] VITALS: BP 124/67
[2018-03-02 16:00] VITALS: BP 118/58
[2018-03-02 20:00] VITALS: BP 114/57
[2018-03-03] VITALS: BP 137/72
[2018-03-03 04:00] VITALS: BP 125/63
[2018-03-03 08:00] VITALS: BP 120/84
--- NOTE | 2018-03-03 08:16 | Critical Care Progress Note ---
Assessment/Plan Assessment/Plan IMPRESSION: Acute on chronic respiratory failure, COPD with acute exacerbation, chronic respiratory acidosis and associated hypoxemia, cardiomegaly, pleural effusion and pulmonary edema, protein-calorie malnutrition. PLAN exam reviewed respiratory care as is supportive care as able BIPAP QHS as tolerated guarded feeds DVT prophylaxis monitor acid base possible LTAC prednisone to off---dc for now medications/laboratory data/nursing notes reviewed in detail note reviewed and edited care discussed with RN and RT Critical Care - Subjective Interval Events: confused ROS Limited/Unobtainable: Yes Condition: stable EKG Rhythm: Sinus Rhythm I&O: Intake and Output 03/02/18 03/03/18 19:00 07:00 Intake Total 480 ml 500 ml Output Total 300 ml 200 ml Balance 180 ml 300 ml Intake Oral 480 ml 300 ml IV Total 200 ml Output Urine Total 300 ml 200 ml # Voids 1 # Bowel Movements 1 1 Critical Care - Objective ET-Tube: 7.5 ET Position: 24 Last 24 Hour Vital Signs Date Time Temp Pulse Resp B/P (MAP) Pulse Ox O2 Delivery O2 Flow Rate FiO2 03/03/18 07:35 Nasal Cannula 2.0 28 03/03/18 07:35 98 Nasal Cannula 2.0 28 03/03/18 04:00 79 03/03/18 04:00 97.4 79 20 125/63 (83) 97 03/03/18 00:00 99.3 81 20 137/72 (93) 97 03/03/18 00:00 81 03/02/18 21:00 Nasal Cannula 2.0 Nasal Cannula 2.0 03/02/18 20:44 99 Nasal Cannula 1.0 24 03/02/18 20:44 Nasal Cannula 1.0 24 03/02/18 20:00 91 03/02/18 20:00 98.2 91 20 114/57 (76) 98 03/02/18 16:00 80 03/02/18 16:00 Nasal Cannula 2.0 Nasal Cannula 2.0 03/02/18 16:00 97.9 76 118/58 (78) 03/02/18 16:00 2.0 03/02/18 12:00 77 03/02/18 12:00 2.0 03/02/18 12:00 97.3 77 124/67 (86) 03/02/18 12:00 Nasal Cannula 2.0 Nasal Cannula 2.0 03/02/18 08:54 95 20 100 Nasal Cannula 2.0 28 03/02/18 08:54 98 20 100 Nasal Cannula 2.0 03/02/18 08:52 Nasal Cannula 2.0 03/02/18 08:52 100 Nasal Cannula 2.0 03/02/18 08:26 77 145/71 Labs: Laboratory Tests Test 03/02/18 14:58 Arterial Blood pH 7.360 (7.350-7.450) Arterial Blood Partial Pressure CO2 55.5 mmHg (35.0-45.0) *H Arterial Blood Partial Pressure O2 116.8 mmHg (75.0-100.0) H Arterial Blood HCO3 30.7 mmol/L (22.0-26.0) H Arterial Blood Oxygen Saturation 98.3 % (95-100) Arterial Blood Base Excess 3.9 (-2-2) H Tarun Test Positive Objective: GENERAL: awake; no distress; on oxygen no distress NECK: Supple. No adenopathy. No jugular venous distention. LUNGS: Moderate breath sounds. no rhonchi. No wheezes. stable CARDIAC: S1 and S2. Regular rhythm without murmurs, rubs, or gallops. ABDOMEN: Soft, nontender, nondistended. no HSM; EXTREMITIES: No cyanosis, clubbing; trace edema. NEUROLOGIC: Grossly nonfocal, awake reviewed and examined Accucheck: 140 Mk Billings MD Mar 03, 2018 08:15
--- NOTE | 2018-03-03 08:30 | General Progress Note ---
Assessment/Plan Problem List: (1) COPD exacerbation ICD Codes: J44.1 - Chronic obstructive pulmonary disease with (acute) exacerbation SNOMED: 909038126 (2) HTN (hypertension) ICD Codes: I10 - Essential (primary) hypertension SNOMED: 63982533 (3) Hypoxia ICD Codes: R09.02 - Hypoxemia SNOMED: 879274852 (4) Elevated troponin ICD Codes: R74.8 - Abnormal levels of other serum enzymes SNOMED: 188895948, 669140329, 330437547 (5) Renal insufficiency ICD Codes: N28.9 - Disorder of kidney and ureter, unspecified SNOMED: 542138587, 020676210 (6) Respiratory failure ICD Codes: J96.90 - Respiratory failure, unspecified, unspecified whether with hypoxia or hypercapnia SNOMED: 093729023 Qualifiers: Qualified Codes: J96.02 - Acute respiratory failure with hypercapnia (7) Right lower lobe pneumonia ICD Codes: J18.1 - Lobar pneumonia, unspecified organism SNOMED: 623373055 Qualifiers: Qualified Codes: J18.1 - Lobar pneumonia, unspecified organism Status: stable, progressing Assessment/Plan resp rx o2 bipap per pulm(try nocturnal) keep dry ID appreciated improving lice treated and resolved. no isolation needed refer to ltach or snf with nocturnal bipap Subjective ROS Limited/Unobtainable: No Constitutional: Reports: malaise, weakness HEENT: Reports: no symptoms Cardiovascular: Reports: no symptoms Respiratory: Reports: no symptoms Gastrointestinal/Abdominal: Reports: no symptoms Genitourinary: Reports: no symptoms Neurologic/Psychiatric: Reports: no symptoms Endocrine: Reports: no symptoms Hematologic/Lymphatic: Reports: no symptoms Allergies: Coded Allergies: No Known Allergies (Unverified , 12/10/15) All Systems: reviewed and negative except above Subjective no complaints. off bipap currently. used bipap most of the night, alert. no new complaints. denies sob. await for snf bed or ltach Objective Last 24 Hour Vital Signs Date Time Temp Pulse Resp B/P (MAP) Pulse Ox O2 Delivery O2 Flow Rate FiO2 03/03/18 07:35 Nasal Cannula 2.0 28 03/03/18 07:35 98 Nasal Cannula 2.0 28 03/03/18 04:00 79 03/03/18 04:00 97.4 79 20 125/63 (83) 97 03/03/18 00:00 99.3 81 20 137/72 (93) 97 03/03/18 00:00 81 03/02/18 21:00 Nasal Cannula 2.0 Nasal Cannula 2.0 03/02/18 20:44 99 Nasal Cannula 1.0 24 03/02/18 20:44 Nasal Cannula 1.0 24 03/02/18 20:00 91 03/02/18 20:00 98.2 91 20 114/57 (76) 98 03/02/18 16:00 80 03/02/18 16:00 Nasal Cannula 2.0 Nasal Cannula 2.0 03/02/18 16:00 97.9 76 118/58 (78) 03/02/18 16:00 2.0 03/02/18 12:00 77 03/02/18 12:00 2.0 03/02/18 12:00 97.3 77 124/67 (86) 03/02/18 12:00 Nasal Cannula 2.0 Nasal Cannula 2.0 03/02/18 08:54 95 20 100 Nasal Cannula 2.0 28 03/02/18 08:54 98 20 100 Nasal Cannula 2.0 28 03/02/18 08:52 Nasal Cannula 2.0 28 03/02/18 08:52 100 Nasal Cannula 2.0 28 Intake and Output 03/02/18 03/03/18 18:59 06:59 Intake Total 480 ml 500 ml Output Total 300 ml 200 ml Balance 180 ml 300 ml Intake Oral 480 ml 300 ml IV Total 200 ml Output Urine Total 300 ml 200 ml # Voids 1 # Bowel Movements 1 1 Laboratory Tests 03/02/18 14:58: Arterial Blood pH 7.360, Arterial Blood Partial Pressure CO2 55.5*H, Arterial Blood Partial Pressure O2 116.8H, Arterial Blood HCO3 30.7H, Arterial Blood Oxygen Saturation 98.3, Arterial Blood Base Excess 3.9H, Tarun Test Positive Height (Feet): 5 Height (Inches): 6.00 Weight (Pounds): 205 Objective General Appearance: WD/WN, resting. on nasal cannula, opens eyes. alert. follows commands Neck: supple Cardiovascular: regular rhythm Respiratory/Chest: lungs mostly clear, few rhonchi Abdomen: normal bowel sounds, non tender, soft, no organomegaly Edema: no edema noted Arm (L), no edema noted Arm (R), no edema noted Leg (L), no edema noted Leg (R), no edema noted Pedal (L), no edema noted Pedal (R), no edema noted Generalized Manan Byrd MD Mar 03, 2018 08:30
[2018-03-03] MEDS: dilTIAZem HCl CD 240mg cap ORAL SCH (08:31)
[2018-03-03] MEDS: Vitamin A&D Oint 2oz Tube TOPIC SCH ×2 (08:36→21:21)
[2018-03-03] MEDS ORDERED: Tubing IV Secondary IV ONE (08:52)
[2018-03-03] MEDS ORDERED: NS 275ml ONE (08:52)
--- NOTE | 2018-03-03 09:15 | Urology Progress Note ---
Assessment/Plan Assessment/Plan 1. Gross hematuria, improved. 2. Urinary retention. 3. Probable neurogenic bladder. 4. Pyuria. 5. Proteinuria. 6. Possible hemorrhagic cystitis. monitor clinically no active bleeding cont with abx as ordered off anticoagulation monitor h/h cysto later consider check PVR Subjective Allergies: Coded Allergies: No Known Allergies (Unverified , 12/10/15) Subjective all noted, comfortable, voiding, urine reportedly clear Objective Last 24 Hour Vital Signs Date Time Temp Pulse Resp B/P (MAP) Pulse Ox O2 Delivery O2 Flow Rate FiO2 03/03/18 08:41 Nasal Cannula 2.0 28 03/03/18 08:41 Nasal Cannula 2.0 28 03/03/18 08:31 91 120/84 03/03/18 07:35 Nasal Cannula 2.0 28 03/03/18 07:35 98 Nasal Cannula 2.0 28 03/03/18 04:00 79 03/03/18 04:00 97.4 79 20 125/63 (83) 97 03/03/18 00:00 99.3 81 20 137/72 (93) 97 03/03/18 00:00 81 03/02/18 21:00 Nasal Cannula 2.0 Nasal Cannula 2.0 03/02/18 20:44 99 Nasal Cannula 1.0 24 03/02/18 20:44 Nasal Cannula 1.0 24 03/02/18 20:00 91 03/02/18 20:00 98.2 91 20 114/57 (76) 98 03/02/18 16:00 80 03/02/18 16:00 Nasal Cannula 2.0 Nasal Cannula 2.0 03/02/18 16:00 97.9 76 118/58 (78) 03/02/18 16:00 2.0 03/02/18 12:00 77 03/02/18 12:00 2.0 03/02/18 12:00 97.3 77 124/67 (86) 03/02/18 12:00 Nasal Cannula 2.0 Nasal Cannula 2.0 Intake and Output 03/02/18 03/03/18 18:59 06:59 Intake Total 480 ml 500 ml Output Total 300 ml 200 ml Balance 180 ml 300 ml Intake Oral 480 ml 300 ml IV Total 200 ml Output Urine Total 300 ml 200 ml # Voids 1 # Bowel Movements 1 1 Microbiology Date/Time Source Procedure Growth Status 02/03/18 15:30 Blood Blood Culture - Final NO GROWTH AFTER 5 DAYS Complete 02/20/18 18:40 Stool Clostridium difficile Toxin Assay - Final Complete 02/20/18 12:50 Urine,Clean Catch Urine Culture - Final NO GROWTH AFTER 48 HOURS Complete 02/03/18 15:30 Rectal Mucosa - Final NO CARBAPENEM-RESISTANT ENTEROBACTERI... Complete Current Medications Medications (Trade) Dose Ordered Sig/Isabella Route PRN Reason Start Time Stop Time Status Last Admin Dose Admin Acetaminophen (Tylenol) 650 mg Q6H PRN ORAL Mild Pain/Temp > 100.5 03/02/18 18:39 03/05/18 18:38 03/03/18 00:45 Bisacodyl (Dulcolax) 10 mg DAILYPRN PRN RECTAL Constipation 03/02/18 18:39 04/01/18 18:38 Clonidine HCl (Catapres Tab) 0.1 mg Q4H PRN ORAL SBP above 150 03/02/18 18:39 03/21/18 18:38 Diltiazem HCl (Cardizem CD) 240 mg DAILY ORAL 03/03/18 09:00 03/27/18 08:59 03/03/18 08:31 Diphenhydramine HCl (Benadryl) 25 mg Q6H PRN ORAL Itching 03/02/18 18:39 03/05/18 18:38 03/03/18 08:29 Fluoxetine HCl (PROzac) 20 mg DAILY ORAL 03/03/18 09:00 03/06/18 08:59 03/03/18 08:30 Pantoprazole (Protonix) 40 mg DAILY ORAL 03/03/18 09:00 03/29/18 08:59 03/03/18 08:30 Prednisone (predniSONE) 10 mg DAILY ORAL 03/03/18 09:00 03/23/18 08:59 03/03/18 08:30 Tiotropium [place] (Spiriva Inhaler) 1 puff DAILY INH 03/03/18 09:00 03/06/18 08:59 Vitamin A/Vitamin D (A & D Oint) 1 applic EVERY 12 HOURS TOPIC 03/02/18 21:00 03/21/18 20:59 03/03/18 08:36 Laboratory Tests 03/02/18 14:58: Arterial Blood pH 7.360, Arterial Blood Partial Pressure CO2 55.5*H, Arterial Blood Partial Pressure O2 116.8H, Arterial Blood HCO3 30.7H, Arterial Blood Oxygen Saturation 98.3, Arterial Blood Base Excess 3.9H, Tarun Test Positive Height (Feet): 5 Height (Inches): 6.00 Weight (Pounds): 205 Objective exam stable renal u/s (02/19) noted Spenser Marc MD Mar 03, 2018 09:15
--- NOTE | 2018-03-03 09:15 | Infectious Diseases Prog Note ---
Assessment/Plan Assessment/Plan A; Head lice treated COPD Pneumonia treated Anemia Hypercapnic respiratory failure resolving herpes zoster treated P: Observe off antibiotic Subjective ROS Limited/Unobtainable: Yes Allergies: Coded Allergies: No Known Allergies (Unverified , 12/10/15) Objective Vital Signs Last 24 Hour Vital Signs Date Time Temp Pulse Resp B/P (MAP) Pulse Ox O2 Delivery O2 Flow Rate FiO2 03/03/18 08:41 Nasal Cannula 2.0 28 03/03/18 08:41 Nasal Cannula 2.0 28 03/03/18 08:31 91 120/84 03/03/18 07:35 Nasal Cannula 2.0 28 03/03/18 07:35 98 Nasal Cannula 2.0 28 03/03/18 04:00 79 03/03/18 04:00 97.4 79 20 125/63 (83) 97 03/03/18 00:00 99.3 81 20 137/72 (93) 97 03/03/18 00:00 81 03/02/18 21:00 Nasal Cannula 2.0 Nasal Cannula 2.0 03/02/18 20:44 99 Nasal Cannula 1.0 24 03/02/18 20:44 Nasal Cannula 1.0 24 03/02/18 20:00 91 03/02/18 20:00 98.2 91 20 114/57 (76) 98 03/02/18 16:00 80 03/02/18 16:00 Nasal Cannula 2.0 Nasal Cannula 2.0 03/02/18 16:00 97.9 76 118/58 (78) 03/02/18 16:00 2.0 03/02/18 12:00 77 03/02/18 12:00 2.0 03/02/18 12:00 97.3 77 124/67 (86) 03/02/18 12:00 Nasal Cannula 2.0 Nasal Cannula 2.0 Height (Feet): 5 Height (Inches): 6.00 Weight (Pounds): 205 General Appearance: no acute distress HEENT: mucous membranes moist Respiratory/Chest: lungs clear Cardiovascular: normal rate Abdomen: soft, non tender Extremities: no edema Neurologic/Psychiatric: other - sleeping Laboratory Tests Test 03/02/18 14:58 Arterial Blood pH 7.360 (7.350-7.450) Arterial Blood Partial Pressure CO2 55.5 mmHg (35.0-45.0) *H Arterial Blood Partial Pressure O2 116.8 mmHg (75.0-100.0) H Arterial Blood HCO3 30.7 mmol/L (22.0-26.0) H Arterial Blood Oxygen Saturation 98.3 % (95-100) Arterial Blood Base Excess 3.9 (-2-2) H Tarun Test Positive Current Medications Medications (Trade) Dose Ordered Sig/Isabella Route PRN Reason Start Time Stop Time Status Last Admin Dose Admin Acetaminophen (Tylenol) 650 mg Q6H PRN ORAL Mild Pain/Temp > 100.5 03/02/18 18:39 03/05/18 18:38 03/03/18 00:45 Bisacodyl (Dulcolax) 10 mg DAILYPRN PRN RECTAL Constipation 03/02/18 18:39 04/01/18 18:38 Clonidine HCl (Catapres Tab) 0.1 mg Q4H PRN ORAL SBP above 150 03/02/18 18:39 03/21/18 18:38 Diltiazem HCl (Cardizem CD) 240 mg DAILY ORAL 03/03/18 09:00 03/27/18 08:59 03/03/18 08:31 Diphenhydramine HCl (Benadryl) 25 mg Q6H PRN ORAL Itching 03/02/18 18:39 03/05/18 18:38 03/03/18 08:29 Fluoxetine HCl (PROzac) 20 mg DAILY ORAL 03/03/18 09:00 03/06/18 08:59 03/03/18 08:30 Pantoprazole (Protonix) 40 mg DAILY ORAL 03/03/18 09:00 03/29/18 08:59 03/03/18 08:30 Prednisone (predniSONE) 10 mg DAILY ORAL 03/03/18 09:00 03/23/18 08:59 03/03/18 08:30 Tiotropium [place] (Spiriva Inhaler) 1 puff DAILY INH 03/03/18 09:00 03/06/18 08:59 Vitamin A/Vitamin D (A & D Oint) 1 applic EVERY 12 HOURS TOPIC 03/02/18 21:00 03/21/18 20:59 03/03/18 08:36 Amado Estrella MD Mar 03, 2018 09:15
[2018-03-03 12:00] VITALS: BP 115/62
[2018-03-03 15:22] LABS: BASOPHILS % (AUTO) 0.9 % (0.0-2.0); EOSINOPHILS % (AUTO) 3.3 % (0.0-3.0); HEMATOCRIT 39.7 % (37.0-47.0); HEMOGLOBIN 12.6 G/DL (12.0-16.0); LYMPHOCYTES % (AUTO) 10.5 % (20.0-45.0); MEAN CORPUSCULAR VOLUME 92 FL (80-99); MONOCYTES % (AUTO) 3.5 % (1.0-10.0); NEUTROPHILS % (AUTO) 81.8 % (45.0-75.0); PLATELET COUNT 173 K/UL (150-450); RED BLOOD COUNT 4.31 M/UL (4.20-5.40); RED CELL DISTRIBUTION WIDTH 14.7 % (11.6-14.8); WHITE BLOOD COUNT 7.9 K/UL (4.8-10.8)
[2018-03-03 15:51] LABS: ALANINE AMINOTRANSFERASE 16 U/L (12-78); ALBUMIN 2.5 G/DL (3.4-5.0); ALBUMIN/GLOBULIN RATIO 0.6 (1.0-2.7); ALKALINE PHOSPHATASE 93 U/L (46-116); ANION GAP 3 mmol/L (5-15); ASPARTATE AMINO TRANSFERASE 11 U/L (15-37); BILIRUBIN,TOTAL 0.2 MG/DL (0.2-1.0); BLOOD UREA NITROGEN 16 mg/dL (7-18); CALCIUM 9.2 MG/DL (8.5-10.1); CARBON DIOXIDE 34 MMOL/L (21-32); CHLORIDE 102 MMOL/L (98-107); CREATININE 0.7 MG/DL (0.55-1.30); POTASSIUM 4.4 MMOL/L (3.5-5.1); SODIUM 139 MMOL/L (136-145)
[2018-03-03 16:00] VITALS: BP 125/68
[2018-03-03 20:00] VITALS: BP 143/86
[2018-03-04] VITALS: BP 134/68
[2018-03-04 04:00] VITALS: BP 123/68
[2018-03-04 08:00] VITALS: BP 121/65
--- NOTE | 2018-03-04 08:29 | General Progress Note ---
Assessment/Plan Problem List: (1) COPD exacerbation ICD Codes: J44.1 - Chronic obstructive pulmonary disease with (acute) exacerbation SNOMED: 099020868 (2) HTN (hypertension) ICD Codes: I10 - Essential (primary) hypertension SNOMED: 12210799 (3) Hypoxia ICD Codes: R09.02 - Hypoxemia SNOMED: 950570393 (4) Elevated troponin ICD Codes: R74.8 - Abnormal levels of other serum enzymes SNOMED: 820025233, 546800747, 006455007 (5) Renal insufficiency ICD Codes: N28.9 - Disorder of kidney and ureter, unspecified SNOMED: 840844161, 220579954 (6) Respiratory failure ICD Codes: J96.90 - Respiratory failure, unspecified, unspecified whether with hypoxia or hypercapnia SNOMED: 442949153 Qualifiers: Qualified Codes: J96.02 - Acute respiratory failure with hypercapnia (7) Right lower lobe pneumonia ICD Codes: J18.1 - Lobar pneumonia, unspecified organism SNOMED: 713810089 Qualifiers: Qualified Codes: J18.1 - Lobar pneumonia, unspecified organism Assessment/Plan resp rx o2 bipap per pulm(try nocturnal) keep dry ID appreciated improving lice treated and resolved. no isolation needed refer to ltach or snf with nocturnal bipap Subjective ROS Limited/Unobtainable: No Constitutional: Reports: malaise, weakness HEENT: Reports: no symptoms Cardiovascular: Reports: no symptoms Respiratory: Reports: no symptoms Gastrointestinal/Abdominal: Reports: no symptoms Genitourinary: Reports: no symptoms Neurologic/Psychiatric: Reports: no symptoms Endocrine: Reports: no symptoms Hematologic/Lymphatic: Reports: no symptoms Allergies: Coded Allergies: No Known Allergies (Unverified , 12/10/15) All Systems: reviewed and negative except above Subjective no complaints. off bipap except at night. used bipap most of the night, alert. no new complaints. denies sob. await for snf bed or ltach Objective Last 24 Hour Vital Signs Date Time Temp Pulse Resp B/P (MAP) Pulse Ox O2 Delivery O2 Flow Rate FiO2 03/04/18 04:00 98.4 83 16 123/68 (86) 98 03/04/18 03:46 84 03/04/18 02:50 72 19 99 Facial 25 03/04/18 01:35 68 19 99 Facial 25 03/04/18 00:00 98.2 73 18 134/68 (90) 99 03/03/18 23:25 76 03/03/18 23:12 72 18 98 Facial 25 03/03/18 21:00 Nasal Cannula 2.0 Nasal Cannula 1.0 03/03/18 20:55 Nasal Cannula 2.0 28 03/03/18 20:55 98 Nasal Cannula 2.0 28 03/03/18 20:00 98.6 89 20 143/86 (105) 99 03/03/18 19:46 92 03/03/18 16:00 84 03/03/18 16:00 97.7 81 18 125/68 (87) 98 03/03/18 12:00 92 03/03/18 12:00 98.2 94 18 115/62 (79) 95 03/03/18 09:00 Nasal Cannula 2.0 Nasal Cannula 1.0 03/03/18 08:41 Nasal Cannula 2.0 28 03/03/18 08:41 Nasal Cannula 2.0 28 03/03/18 08:31 91 120/84 Intake and Output 03/03/18 03/04/18 19:00 07:00 Intake Total 360 ml 240 ml Output Total 400 ml 500 ml Balance -40 ml -260 ml Intake Oral 360 ml 240 ml Output Urine Total 400 ml 500 ml # Voids 2 # Bowel Movements 2 Laboratory Tests 03/03/18 14:40: White Blood Count 7.9, Red Blood Count 4.31, Hemoglobin 12.6, Hematocrit 39.7, Mean Corpuscular Volume 92, Mean Corpuscular Hemoglobin 29.3, Mean Corpuscular Hemoglobin Concent 31.8L, Red Cell Distribution Width 14.7, Platelet Count 173, Mean Platelet Volume 6.8, Neutrophils (%) (Auto) 81.8H, Lymphocytes (%) (Auto) 10.5L, Monocytes (%) (Auto) 3.5, Eosinophils (%) (Auto) 3.3H, Basophils (%) ( Auto) 0.9, Sodium Level 139, Potassium Level 4.4, Chloride Level 102, Carbon Dioxide Level 34H, Anion Gap 3L, Blood Urea Nitrogen 16, Creatinine 0.7, Estimat Glomerular Filtration Rate , Glucose Level 147H, Calcium Level 9.2, Total Bilirubin 0.2, Aspartate Amino Transf (AST/SGOT) 11L, Alanine Aminotransferase (ALT/SGPT) 16, Alkaline Phosphatase 93, Total Protein 6.4, Albumin 2.5L, Globulin 3.9, Albumin/Globulin Ratio 0.6L Height (Feet): 5 Height (Inches): 6.00 Weight (Pounds): 205 Objective General Appearance: WD/WN, resting. on nasal cannula, opens eyes. alert. follows commands Neck: supple Cardiovascular: regular rhythm Respiratory/Chest: lungs mostly clear, few rhonchi Abdomen: normal bowel sounds, non tender, soft, no organomegaly Edema: no edema noted Arm (L), no edema noted Arm (R), no edema noted Leg (L), no edema noted Leg (R), no edema noted Pedal (L), no edema noted Pedal (R), no edema noted Generalized Manan Byrd MD Mar 04, 2018 08:29
--- NOTE | 2018-03-04 08:49 | Critical Care Progress Note ---
Assessment/Plan Assessment/Plan IMPRESSION: Acute on chronic respiratory failure, COPD with acute exacerbation, chronic respiratory acidosis and associated hypoxemia, cardiomegaly, pleural effusion and pulmonary edema, protein-calorie malnutrition. PLAN exam overall stable respiratory care as is supportive care as able BIPAP QHS as tolerated guarded nutrition DVT prophylaxis monitor acid base off prednisone medications/laboratory data/nursing notes reviewed in detail note reviewed and edited care discussed with RN and RT Critical Care - Subjective Interval Events: no change or distress ROS Limited/Unobtainable: Yes Condition: stable EKG Rhythm: Sinus Rhythm I&O: Intake and Output 03/03/18 03/04/18 19:00 07:00 Intake Total 360 ml 240 ml Output Total 400 ml 500 ml Balance -40 ml -260 ml Intake Oral 360 ml 240 ml Output Urine Total 400 ml 500 ml # Voids 2 # Bowel Movements 2 Critical Care - Objective ET-Tube: 7.5 ET Position: 24 Last 24 Hour Vital Signs Date Time Temp Pulse Resp B/P (MAP) Pulse Ox O2 Delivery O2 Flow Rate FiO2 03/04/18 04:00 98.4 83 16 123/68 (86) 98 03/04/18 03:46 84 03/04/18 02:50 72 19 99 Facial 25 03/04/18 01:35 68 19 99 Facial 25 03/04/18 00:00 98.2 73 18 134/68 (90) 99 03/03/18 23:25 76 03/03/18 23:12 72 18 98 Facial 25 03/03/18 21:00 Nasal Cannula 2.0 Nasal Cannula 1.0 03/03/18 20:55 Nasal Cannula 2.0 28 03/03/18 20:55 98 Nasal Cannula 2.0 28 03/03/18 20:00 98.6 89 20 143/86 (105) 99 03/03/18 19:46 92 03/03/18 16:00 84 03/03/18 16:00 97.7 81 18 125/68 (87) 98 03/03/18 12:00 92 03/03/18 12:00 98.2 94 18 115/62 (79) 95 03/03/18 09:00 Nasal Cannula 2.0 Nasal Cannula 1.0 Labs: Laboratory Tests Test 03/03/18 14:40 White Blood Count 7.9 K/UL (4.8-10.8) Red Blood Count 4.31 M/UL (4.20-5.40) Hemoglobin 12.6 G/DL (12.0-16.0) Hematocrit 39.7 % (37.0-47.0) Mean Corpuscular Volume 92 FL (80-99) Mean Corpuscular Hemoglobin 29.3 PG (27.0-31.0) Mean Corpuscular Hemoglobin Concent 31.8 G/DL (32.0-36.0) L Red Cell Distribution Width 14.7 % (11.6-14.8) Platelet Count 173 K/UL (150-450) Mean Platelet Volume 6.8 FL (6.5-10.1) Neutrophils (%) (Auto) 81.8 % (45.0-75.0) H Lymphocytes (%) (Auto) 10.5 % (20.0-45.0) L Monocytes (%) (Auto) 3.5 % (1.0-10.0) Eosinophils (%) (Auto) 3.3 % (0.0-3.0) H Basophils (%) (Auto) 0.9 % (0.0-2.0) Sodium Level 139 MMOL/L (136-145) Potassium Level 4.4 MMOL/L (3.5-5.1) Chloride Level 102 MMOL/L (98-107) Carbon Dioxide Level 34 MMOL/L (21-32) H Anion Gap 3 mmol/L (5-15) L Blood Urea Nitrogen 16 mg/dL (7-18) Creatinine 0.7 MG/DL (0.55-1.30) Estimat Glomerular Filtration Rate mL/min (>60) Glucose Level 147 MG/DL (74-106) H Calcium Level 9.2 MG/DL (8.5-10.1) Total Bilirubin 0.2 MG/DL (0.2-1.0) Aspartate Amino Transf (AST/SGOT) 11 U/L (15-37) L Alanine Aminotransferase (ALT/SGPT) 16 U/L (12-78) Alkaline Phosphatase 93 U/L (46-116) Total Protein 6.4 G/DL (6.4-8.2) Albumin 2.5 G/DL (3.4-5.0) L Globulin 3.9 g/dL Albumin/Globulin Ratio 0.6 (1.0-2.7) L Objective: GENERAL: awake; no distress; on oxygen no distress NECK: Supple. No adenopathy. No jugular venous distention. LUNGS: Moderate breath sounds. no rhonchi. No wheezes. stable CARDIAC: S1 and S2. Regular rhythm without murmurs, rubs, or gallops. ABDOMEN: Soft, nontender, nondistended. no HSM; EXTREMITIES: No cyanosis, clubbing; trace edema. NEUROLOGIC: Grossly nonfocal, awake reviewed and examined Accucheck: 140 Mk Billings MD Mar 04, 2018 08:49
[2018-03-04] MEDS: dilTIAZem HCl CD 240mg cap ORAL SCH (09:34)
[2018-03-04] MEDS: Vitamin A&D Oint 2oz Tube TOPIC SCH ×2 (09:35→20:31)
--- NOTE | 2018-03-04 10:36 | Urology Progress Note ---
Assessment/Plan Assessment/Plan 1. Gross hematuria, improved. 2. Urinary retention. 3. Probable neurogenic bladder. 4. Pyuria. 5. Proteinuria. 6. Possible hemorrhagic cystitis. monitor clinically no active bleeding s/p abx off anticoagulation monitor h/h cysto later consider check PVR Subjective Allergies: Coded Allergies: No Known Allergies (Unverified , 12/10/15) Subjective all noted, comfortable, voiding, urine reportedly clear Objective Last 24 Hour Vital Signs Date Time Temp Pulse Resp B/P (MAP) Pulse Ox O2 Delivery O2 Flow Rate FiO2 03/04/18 09:34 89 121/65 03/04/18 09:01 Nasal Cannula 2.0 28 03/04/18 09:01 89 18 97 Nasal Cannula 2.0 28 03/04/18 09:01 97 Nasal Cannula 2.0 28 03/04/18 09:01 89 18 97 Nasal Cannula 2.0 28 03/04/18 08:00 97.9 94 20 121/65 (83) 96 03/04/18 04:00 98.4 83 16 123/68 (86) 98 03/04/18 03:46 84 03/04/18 02:50 72 19 99 Facial 25 03/04/18 01:35 68 19 99 Facial 25 03/04/18 00:00 98.2 73 18 134/68 (90) 99 03/03/18 23:25 76 03/03/18 23:12 72 18 98 Facial 25 03/03/18 21:00 Nasal Cannula 2.0 Nasal Cannula 1.0 03/03/18 20:55 Nasal Cannula 2.0 28 03/03/18 20:55 98 Nasal Cannula 2.0 28 03/03/18 20:00 98.6 89 20 143/86 (105) 99 03/03/18 19:46 92 03/03/18 16:00 84 03/03/18 16:00 97.7 81 18 125/68 (87) 98 03/03/18 12:00 92 03/03/18 12:00 98.2 94 18 115/62 (79) 95 Intake and Output 03/03/18 03/04/18 18:59 06:59 Intake Total 360 ml 240 ml Output Total 400 ml 500 ml Balance -40 ml -260 ml Intake Oral 360 ml 240 ml Output Urine Total 400 ml 500 ml # Voids 2 # Bowel Movements 2 Microbiology Date/Time Source Procedure Growth Status 02/03/18 15:30 Blood Blood Culture - Final NO GROWTH AFTER 5 DAYS Complete 02/20/18 18:40 Stool Clostridium difficile Toxin Assay - Final Complete 02/20/18 12:50 Urine,Clean Catch Urine Culture - Final NO GROWTH AFTER 48 HOURS Complete 02/03/18 15:30 Rectal Mucosa - Final NO CARBAPENEM-RESISTANT ENTEROBACTERI... Complete Current Medications Medications (Trade) Dose Ordered Sig/Isabella Route PRN Reason Start Time Stop Time Status Last Admin Dose Admin Acetaminophen (Tylenol) 650 mg Q6H PRN ORAL Mild Pain/Temp > 100.5 03/02/18 18:39 03/05/18 18:38 03/03/18 00:45 Bisacodyl (Dulcolax) 10 mg DAILYPRN PRN RECTAL Constipation 03/02/18 18:39 04/01/18 18:38 Clonidine HCl (Catapres Tab) 0.1 mg Q4H PRN ORAL SBP above 150 03/02/18 18:39 03/21/18 18:38 Diltiazem HCl (Cardizem CD) 240 mg DAILY ORAL 03/03/18 09:00 03/27/18 08:59 03/04/18 09:34 Diphenhydramine HCl (Benadryl) 25 mg Q6H PRN ORAL Itching 03/02/18 18:39 03/05/18 18:38 03/04/18 05:25 Fluoxetine HCl (PROzac) 20 mg DAILY ORAL 03/03/18 09:00 03/06/18 08:59 03/04/18 09:34 Pantoprazole (Protonix) 40 mg DAILY ORAL 03/03/18 09:00 03/29/18 08:59 03/04/18 09:34 Tiotropium [place] (Spiriva Inhaler) 1 puff DAILY INH 03/03/18 09:00 03/06/18 08:59 03/04/18 09:01 Vitamin A/Vitamin D (A & D Oint) 1 applic EVERY 12 HOURS TOPIC 03/02/18 21:00 03/21/18 20:59 03/04/18 09:35 Laboratory Tests 03/03/18 14:40: White Blood Count 7.9, Red Blood Count 4.31, Hemoglobin 12.6, Hematocrit 39.7, Mean Corpuscular Volume 92, Mean Corpuscular Hemoglobin 29.3, Mean Corpuscular Hemoglobin Concent 31.8L, Red Cell Distribution Width 14.7, Platelet Count 173, Mean Platelet Volume 6.8, Neutrophils (%) (Auto) 81.8H, Lymphocytes (%) (Auto) 10.5L, Monocytes (%) (Auto) 3.5, Eosinophils (%) (Auto) 3.3H, Basophils (%) ( Auto) 0.9, Sodium Level 139, Potassium Level 4.4, Chloride Level 102, Carbon Dioxide Level 34H, Anion Gap 3L, Blood Urea Nitrogen 16, Creatinine 0.7, Estimat Glomerular Filtration Rate , Glucose Level 147H, Calcium Level 9.2, Total Bilirubin 0.2, Aspartate Amino Transf (AST/SGOT) 11L, Alanine Aminotransferase (ALT/SGPT) 16, Alkaline Phosphatase 93, Total Protein 6.4, Albumin 2.5L, Globulin 3.9, Albumin/Globulin Ratio 0.6L Height (Feet): 5 Height (Inches): 6.00 Weight (Pounds): 205 Objective exam stable renal u/s (02/19) noted Spenser Marc MD Mar 04, 2018 10:36
--- NOTE | 2018-03-04 11:35 | Infectious Diseases Prog Note ---
Assessment/Plan Assessment/Plan antibiotics : none A 1. pneumonia improving 2. head lice improving 3. COPD 4. ? zoster s/p rx 5. respiratory failure P 1. observe off antibiotics Subjective Constitutional: Denies: fever, chills Respiratory: Denies: shortness of breath, dry cough Gastrointestinal/Abdominal: Denies: nausea, vomiting, diarrhea Neurologic: Reports: headache Allergies: Coded Allergies: No Known Allergies (Unverified , 12/10/15) Objective Vital Signs Last 24 Hour Vital Signs Date Time Temp Pulse Resp B/P (MAP) Pulse Ox O2 Delivery O2 Flow Rate FiO2 03/04/18 09:34 89 121/65 03/04/18 09:01 Nasal Cannula 2.0 28 03/04/18 09:01 89 18 97 Nasal Cannula 2.0 28 03/04/18 09:01 97 Nasal Cannula 2.0 28 03/04/18 09:01 89 18 97 Nasal Cannula 2.0 28 03/04/18 09:00 Nasal Cannula 2.0 Nasal Cannula 1.0 03/04/18 08:00 97.9 94 20 121/65 (83) 96 03/04/18 04:00 98.4 83 16 123/68 (86) 98 03/04/18 03:46 84 03/04/18 02:50 72 19 99 Facial 25 03/04/18 01:35 68 19 99 Facial 25 03/04/18 00:00 98.2 73 18 134/68 (90) 99 03/03/18 23:25 76 03/03/18 23:12 72 18 98 Facial 25 03/03/18 21:00 Nasal Cannula 2.0 Nasal Cannula 1.0 03/03/18 20:55 Nasal Cannula 2.0 28 03/03/18 20:55 98 Nasal Cannula 2.0 28 03/03/18 20:00 98.6 89 20 143/86 (105) 99 03/03/18 19:46 92 03/03/18 16:00 84 03/03/18 16:00 97.7 81 18 125/68 (87) 98 03/03/18 12:00 92 03/03/18 12:00 98.2 94 18 115/62 (79) 95 Height (Feet): 5 Height (Inches): 6.00 Weight (Pounds): 205 Respiratory/Chest: lungs clear Cardiovascular: normal rate, regular rhythm, no gallop/murmur Abdomen: soft, non tender Extremities: no edema Laboratory Tests Test 03/03/18 14:40 White Blood Count 7.9 K/UL (4.8-10.8) Red Blood Count 4.31 M/UL (4.20-5.40) Hemoglobin 12.6 G/DL (12.0-16.0) Hematocrit 39.7 % (37.0-47.0) Mean Corpuscular Volume 92 FL (80-99) Mean Corpuscular Hemoglobin 29.3 PG (27.0-31.0) Mean Corpuscular Hemoglobin Concent 31.8 G/DL (32.0-36.0) L Red Cell Distribution Width 14.7 % (11.6-14.8) Platelet Count 173 K/UL (150-450) Mean Platelet Volume 6.8 FL (6.5-10.1) Neutrophils (%) (Auto) 81.8 % (45.0-75.0) H Lymphocytes (%) (Auto) 10.5 % (20.0-45.0) L Monocytes (%) (Auto) 3.5 % (1.0-10.0) Eosinophils (%) (Auto) 3.3 % (0.0-3.0) H Basophils (%) (Auto) 0.9 % (0.0-2.0) Sodium Level 139 MMOL/L (136-145) Potassium Level 4.4 MMOL/L (3.5-5.1) Chloride Level 102 MMOL/L (98-107) Carbon Dioxide Level 34 MMOL/L (21-32) H Anion Gap 3 mmol/L (5-15) L Blood Urea Nitrogen 16 mg/dL (7-18) Creatinine 0.7 MG/DL (0.55-1.30) Estimat Glomerular Filtration Rate mL/min (>60) Glucose Level 147 MG/DL (74-106) H Calcium Level 9.2 MG/DL (8.5-10.1) Total Bilirubin 0.2 MG/DL (0.2-1.0) Aspartate Amino Transf (AST/SGOT) 11 U/L (15-37) L Alanine Aminotransferase (ALT/SGPT) 16 U/L (12-78) Alkaline Phosphatase 93 U/L (46-116) Total Protein 6.4 G/DL (6.4-8.2) Albumin 2.5 G/DL (3.4-5.0) L Globulin 3.9 g/dL Albumin/Globulin Ratio 0.6 (1.0-2.7) L Current Medications Medications (Trade) Dose Ordered Sig/Isabella Route PRN Reason Start Time Stop Time Status Last Admin Dose Admin Acetaminophen (Tylenol) 650 mg Q6H PRN ORAL Mild Pain/Temp > 100.5 03/02/18 18:39 03/05/18 18:38 03/03/18 00:45 Bisacodyl (Dulcolax) 10 mg DAILYPRN PRN RECTAL Constipation 03/02/18 18:39 04/01/18 18:38 Clonidine HCl (Catapres Tab) 0.1 mg Q4H PRN ORAL SBP above 150 03/02/18 18:39 03/21/18 18:38 Diltiazem HCl (Cardizem CD) 240 mg DAILY ORAL 03/03/18 09:00 03/27/18 08:59 03/04/18 09:34 Diphenhydramine HCl (Benadryl) 25 mg Q6H PRN ORAL Itching 03/02/18 18:39 03/05/18 18:38 03/04/18 05:25 Fluoxetine HCl (PROzac) 20 mg DAILY ORAL 03/03/18 09:00 03/06/18 08:59 03/04/18 09:34 Pantoprazole (Protonix) 40 mg DAILY ORAL 03/03/18 09:00 03/29/18 08:59 03/04/18 09:34 Tiotropium [place] (Spiriva Inhaler) 1 puff DAILY INH 03/03/18 09:00 03/06/18 08:59 03/04/18 09:01 Vitamin A/Vitamin D (A & D Oint) 1 applic EVERY 12 HOURS TOPIC 03/02/18 21:00 03/21/18 20:59 03/04/18 09:35 Radha Macias MD Mar 04, 2018 11:35
[2018-03-04 12:00] VITALS: BP 112/72
[2018-03-04 16:00] VITALS: BP 120/70
[2018-03-04 20:00] VITALS: BP 137/68
[2018-03-05] VITALS (7 sets, daily range): BP systolic 107–132; BP diastolic 63–75
--- NOTE | 2018-03-05 08:29 | General Progress Note ---
Assessment/Plan Problem List: (1) COPD exacerbation ICD Codes: J44.1 - Chronic obstructive pulmonary disease with (acute) exacerbation SNOMED: 766308661 (2) HTN (hypertension) ICD Codes: I10 - Essential (primary) hypertension SNOMED: 83791529 (3) Hypoxia ICD Codes: R09.02 - Hypoxemia SNOMED: 764934369 (4) Elevated troponin ICD Codes: R74.8 - Abnormal levels of other serum enzymes SNOMED: 374134399, 795317827, 085271097 (5) Renal insufficiency ICD Codes: N28.9 - Disorder of kidney and ureter, unspecified SNOMED: 987888092, 145499991 (6) Respiratory failure ICD Codes: J96.90 - Respiratory failure, unspecified, unspecified whether with hypoxia or hypercapnia SNOMED: 693508144 Qualifiers: Qualified Codes: J96.02 - Acute respiratory failure with hypercapnia (7) Right lower lobe pneumonia ICD Codes: J18.1 - Lobar pneumonia, unspecified organism SNOMED: 769965774 Qualifiers: Qualified Codes: J18.1 - Lobar pneumonia, unspecified organism Assessment/Plan resp rx o2 bipap per pulm(try nocturnal) keep dry ID appreciated improving lice treated and resolved. no isolation needed refer to ltach or snf with nocturnal bipap Subjective ROS Limited/Unobtainable: No Constitutional: Reports: malaise, weakness HEENT: Reports: no symptoms Cardiovascular: Reports: no symptoms Respiratory: Reports: no symptoms Gastrointestinal/Abdominal: Reports: no symptoms Genitourinary: Reports: no symptoms Neurologic/Psychiatric: Reports: no symptoms Endocrine: Reports: no symptoms Hematologic/Lymphatic: Reports: no symptoms Allergies: Coded Allergies: No Known Allergies (Unverified , 12/10/15) All Systems: reviewed and negative except above Subjective no new complaints. stable on bipap at night. no bed at [facility] Objective Last 24 Hour Vital Signs Date Time Temp Pulse Resp B/P (MAP) Pulse Ox O2 Delivery O2 Flow Rate FiO2 03/05/18 08:00 98.3 99 18 128/63 (84) 97 03/05/18 04:00 98.0 94 20 125/63 (83) 98 03/05/18 04:00 98 03/05/18 01:10 91 18 97 Facial 25 03/05/18 00:00 98.2 92 20 132/71 (91) 94 03/04/18 23:24 92 03/04/18 21:00 Nasal Cannula 2.0 Nasal Cannula 1.0 03/04/18 20:11 97 Nasal Cannula 2.0 28 03/04/18 20:11 Nasal Cannula 2.0 28 03/04/18 20:00 98.6 87 20 137/68 (91) 94 03/04/18 19:18 89 03/04/18 16:00 97.7 90 20 120/70 (87) 97 03/04/18 16:00 83 03/04/18 12:00 92 03/04/18 12:00 97.8 93 19 112/72 (85) 95 03/04/18 09:34 89 121/65 03/04/18 09:01 Nasal Cannula 2.0 28 03/04/18 09:01 89 18 97 Nasal Cannula 2.0 28 03/04/18 09:01 97 Nasal Cannula 2.0 28 03/04/18 09:01 89 18 97 Nasal Cannula 2.0 28 03/04/18 09:00 Nasal Cannula 2.0 Nasal Cannula 1.0 Intake and Output 03/04/18 03/05/18 19:00 07:00 Intake Total 875 ml 400 ml Balance 875 ml 400 ml Intake Oral 875 ml 400 ml # Voids 5 # Bowel Movements 2 Height (Feet): 5 Height (Inches): 6.00 Weight (Pounds): 203 Objective General Appearance: WD/WN, resting. on nasal cannula, opens eyes. alert. follows commands Neck: supple Cardiovascular: regular rhythm Respiratory/Chest: lungs mostly clear, few rhonchi Abdomen: normal bowel sounds, non tender, soft, no organomegaly Edema: no edema noted Arm (L), no edema noted Arm (R), no edema noted Leg (L), no edema noted Leg (R), no edema noted Pedal (L), no edema noted Pedal (R), no edema noted Generalized Manan Byrd MD Mar 05, 2018 08:28
[2018-03-05] MEDS: Vitamin A&D Oint 2oz Tube TOPIC SCH ×2 (08:33→22:11)
[2018-03-05] MEDS: dilTIAZem HCl CD 240mg cap ORAL SCH (08:33)
--- NOTE | 2018-03-05 08:44 | Critical Care Progress Note ---
Assessment/Plan Assessment/Plan IMPRESSION: Acute on chronic respiratory failure, COPD with acute exacerbation, chronic respiratory acidosis and associated hypoxemia, cardiomegaly, pleural effusion and pulmonary edema, protein-calorie malnutrition. PLAN exam overall stable respiratory care as is snf dc BIPAP QHS as tolerated guarded nutrition DVT prophylaxis monitor acid base stable for dc at this time medications/laboratory data/nursing notes reviewed in detail note reviewed and edited care discussed with RN and RT Critical Care - Subjective Condition: stable EKG Rhythm: Sinus Rhythm I&O: Intake and Output 03/04/18 03/05/18 19:00 07:00 Intake Total 875 ml 400 ml Balance 875 ml 400 ml Intake Oral 875 ml 400 ml # Voids 5 # Bowel Movements 2 Critical Care - Objective ET-Tube: 7.5 ET Position: 24 Last 24 Hour Vital Signs Date Time Temp Pulse Resp B/P (MAP) Pulse Ox O2 Delivery O2 Flow Rate FiO2 03/05/18 08:33 99 128/63 03/05/18 08:00 98.3 99 18 128/63 (84) 97 03/05/18 04:00 98.0 94 20 125/63 (83) 98 03/05/18 04:00 98 03/05/18 01:10 91 18 97 Facial 25 03/05/18 00:00 98.2 92 20 132/71 (91) 94 03/04/18 23:24 92 03/04/18 21:00 Nasal Cannula 2.0 Nasal Cannula 1.0 03/04/18 20:11 97 Nasal Cannula 2.0 28 03/04/18 20:11 Nasal Cannula 2.0 28 03/04/18 20:00 98.6 87 20 137/68 (91) 94 03/04/18 19:18 89 03/04/18 16:00 97.7 90 20 120/70 (87) 97 03/04/18 16:00 83 03/04/18 12:00 92 03/04/18 12:00 97.8 93 19 112/72 (85) 95 03/04/18 09:34 89 121/65 03/04/18 09:01 Nasal Cannula 2.0 28 03/04/18 09:01 89 18 97 Nasal Cannula 2.0 28 03/04/18 09:01 97 Nasal Cannula 2.0 28 03/04/18 09:01 89 18 97 Nasal Cannula 2.0 28 03/04/18 09:00 Nasal Cannula 2.0 Nasal Cannula 1.0 Labs: Labs Test 03/02/18 14:58 03/03/18 14:40 Arterial Blood pH 7.360 (7.350-7.450) Arterial Blood Partial Pressure CO2 55.5 mmHg (35.0-45.0) Arterial Blood Partial Pressure O2 116.8 mmHg (75.0-100.0) Arterial Blood HCO3 30.7 mmol/L (22.0-26.0) Arterial Blood Oxygen Saturation 98.3 % (95-100) Arterial Blood Base Excess 3.9 (-2-2) Tarun Test Positive White Blood Count 7.9 K/UL (4.8-10.8) Red Blood Count 4.31 M/UL (4.20-5.40) Hemoglobin 12.6 G/DL (12.0-16.0) Hematocrit 39.7 % (37.0-47.0) Mean Corpuscular Volume 92 FL (80-99) Mean Corpuscular Hemoglobin 29.3 PG (27.0-31.0) Mean Corpuscular Hemoglobin Concent 31.8 G/DL (32.0-36.0) Red Cell Distribution Width 14.7 % (11.6-14.8) Platelet Count 173 K/UL (150-450) Mean Platelet Volume 6.8 FL (6.5-10.1) Neutrophils (%) (Auto) 81.8 % (45.0-75.0) Lymphocytes (%) (Auto) 10.5 % (20.0-45.0) Monocytes (%) (Auto) 3.5 % (1.0-10.0) Eosinophils (%) (Auto) 3.3 % (0.0-3.0) Basophils (%) (Auto) 0.9 % (0.0-2.0) Sodium Level 139 MMOL/L (136-145) Potassium Level 4.4 MMOL/L (3.5-5.1) Chloride Level 102 MMOL/L (98-107) Carbon Dioxide Level 34 MMOL/L (21-32) Anion Gap 3 mmol/L (5-15) Blood Urea Nitrogen 16 mg/dL (7-18) Creatinine 0.7 MG/DL (0.55-1.30) Estimat Glomerular Filtration Rate mL/min (>60) Glucose Level 147 MG/DL (74-106) Calcium Level 9.2 MG/DL (8.5-10.1) Total Bilirubin 0.2 MG/DL (0.2-1.0) Aspartate Amino Transf (AST/SGOT) 11 U/L (15-37) Alanine Aminotransferase (ALT/SGPT) 16 U/L (12-78) Alkaline Phosphatase 93 U/L (46-116) Total Protein 6.4 G/DL (6.4-8.2) Albumin 2.5 G/DL (3.4-5.0) Globulin 3.9 g/dL Albumin/Globulin Ratio 0.6 (1.0-2.7) Objective: GENERAL: awake; no distress; on oxygen no distress NECK: Supple. No adenopathy. No jugular venous distention. LUNGS: Moderate breath sounds. no rhonchi. No wheezes. stable CARDIAC: S1 and S2. Regular rhythm without murmurs, rubs, or gallops. ABDOMEN: Soft, nontender, nondistended. no HSM; EXTREMITIES: No cyanosis, clubbing; trace edema. NEUROLOGIC: Grossly nonfocal, awake alert reviewed and examined Accucheck: 140 Mk Billings MD Mar 05, 2018 08:44
--- NOTE | 2018-03-05 13:09 | Urology Progress Note ---
Assessment/Plan Assessment/Plan 1. Gross hematuria, improved. 2. Urinary retention hx. 3. Probable neurogenic bladder. 4. Pyuria. 5. Proteinuria. 6. Possible hemorrhagic cystitis. monitor clinically no active bleeding s/p abx off anticoagulation, ok to resume if needed monitor h/h cysto later consider check PVR Subjective Allergies: Coded Allergies: No Known Allergies (Unverified , 12/10/15) Subjective all noted, comfortable, voiding, urine reportedly clear Objective Last 24 Hour Vital Signs Date Time Temp Pulse Resp B/P (MAP) Pulse Ox O2 Delivery O2 Flow Rate FiO2 03/05/18 09:00 Nasal Cannula 2.0 Nasal Cannula 1.0 03/05/18 08:33 99 128/63 03/05/18 08:00 98.3 99 18 128/63 (84) 97 03/05/18 04:00 98.0 94 20 125/63 (83) 98 03/05/18 04:00 98 03/05/18 01:10 91 18 97 Facial 25 03/05/18 00:00 98.2 92 20 132/71 (91) 94 03/04/18 23:24 92 03/04/18 21:00 Nasal Cannula 2.0 Nasal Cannula 1.0 03/04/18 20:11 97 Nasal Cannula 2.0 28 03/04/18 20:11 Nasal Cannula 2.0 28 03/04/18 20:00 98.6 87 20 137/68 (91) 94 03/04/18 19:18 89 03/04/18 16:00 97.7 90 20 120/70 (87) 97 03/04/18 16:00 83 Intake and Output 03/04/18 03/05/18 18:59 06:59 Intake Total 875 ml 400 ml Balance 875 ml 400 ml Intake Oral 875 ml 400 ml # Voids 5 # Bowel Movements 2 Microbiology Date/Time Source Procedure Growth Status 02/03/18 15:30 Blood Blood Culture - Final NO GROWTH AFTER 5 DAYS Complete 02/20/18 18:40 Stool Clostridium difficile Toxin Assay - Final Complete 02/20/18 12:50 Urine,Clean Catch Urine Culture - Final NO GROWTH AFTER 48 HOURS Complete 02/03/18 15:30 Rectal Mucosa - Final NO CARBAPENEM-RESISTANT ENTEROBACTERI... Complete Current Medications Medications (Trade) Dose Ordered Sig/Isabella Route PRN Reason Start Time Stop Time Status Last Admin Dose Admin Acetaminophen (Tylenol) 650 mg Q6H PRN ORAL Mild Pain/Temp > 100.5 03/02/18 18:39 03/05/18 18:38 03/03/18 00:45 Bisacodyl (Dulcolax) 10 mg DAILYPRN PRN RECTAL Constipation 03/02/18 18:39 04/01/18 18:38 Clonidine HCl (Catapres Tab) 0.1 mg Q4H PRN ORAL SBP above 150 03/02/18 18:39 03/21/18 18:38 Diltiazem HCl (Cardizem CD) 240 mg DAILY ORAL 03/03/18 09:00 03/27/18 08:59 03/05/18 08:33 Diphenhydramine HCl (Benadryl) 25 mg Q6H PRN ORAL Itching 03/02/18 18:39 03/05/18 18:38 03/05/18 04:30 Fluoxetine HCl (PROzac) 20 mg DAILY ORAL 03/03/18 09:00 03/06/18 08:59 03/05/18 08:33 Pantoprazole (Protonix) 40 mg DAILY ORAL 03/03/18 09:00 03/29/18 08:59 03/05/18 08:33 Tiotropium [place] (Spiriva Inhaler) 1 puff DAILY INH 03/03/18 09:00 03/06/18 08:59 03/04/18 09:01 Vitamin A/Vitamin D (A & D Oint) 1 applic EVERY 12 HOURS TOPIC 03/02/18 21:00 03/21/18 20:59 03/05/18 08:33 Height (Feet): 5 Height (Inches): 6.00 Weight (Pounds): 203 Objective exam stable renal u/s (02/19) noted Spenser Marc MD Mar 05, 2018 13:09
--- NOTE | 2018-03-06 01:30 | Progress Note ---
DATE: 03/01/2018 CARDIOLOGY PROGRESS NOTE Late entry for 03/01/2018. SUBJECTIVE: The patient remains on BiPAP support at night. No shortness of breath. OBJECTIVE: VITAL SIGNS: Blood pressure 146/72, pulse 87, and respirations 17. No fevers. LUNGS: Diminished breath sounds. Few rhonchi. HEART: Regular rhythm and rate. Normal S1, S2. ABDOMEN: Soft. EXTREMITIES: No edema. LABORATORY DATA: Labs from 02/28/2018 reviewed. IMPRESSION: 1. Respiratory failure. 2. Paroxysmal atrial arrhythmias. 3. Chronic diastolic congestive heart failure. 4. Hypertensive heart disease. 5. Acute myocardial ischemia, resolved. PLAN: 1. Same respiratory therapy and cardiovascular regimen. 2. Discharge planning. 3. Monitor volume status and cardiorenal parameters. Ashvin Wu M.D. DR: COOPER JOB#: [id number] CC:
--- NOTE | 2018-03-06 01:45 | Progress Note ---
DATE: 03/04/2018 CARDIOLOGY PROGRESS NOTE Late entry for 03/04/2018. SUBJECTIVE: The patient is on BiPAP at night only. Still using it most of the night. There is no overall change in condition. OBJECTIVE: VITAL SIGNS: Afebrile. Blood pressure 122/68, pulse 83, and respirations 16. LUNGS: Coarse breath sounds. HEART: Regular rhythm and rate. Normal S1, S2. ABDOMEN: Soft. EXTREMITIES: Trace dependent edema. IMPRESSION: 1. Slow progress. 2. Tenuous. PLAN: 1. We will need to continue monitoring volume status and cardiorenal parameters closely with periodic diuresis as needed. 2. Rising bicarb levels may warrant resumption of acetazolamide. Ashvin Wu M.D. DR: COOPER JOB#: [id number] CC:
--- NOTE | 2018-03-06 01:45 | Progress Note ---
DATE: 03/05/2018 CARDIOLOGY PROGRESS NOTE SUBJECTIVE: The patient remains in sinus rhythm. BiPAP is used at night. OBJECTIVE: VITAL SIGNS: Blood pressure 128/63, pulse 99, and respirations 18. Afebrile. LUNGS: Coarse breath sounds. No wheezing. HEART: Regular rhythm and rate. Normal S1, S2. ABDOMEN: Soft. EXTREMITIES: Trace edema. DIAGNOSTIC DATA: No recent chest x-ray exam. Remaining laboratories noted. IMPRESSION: 1. Respiratory failure. 2. Chronic obstructive pulmonary disease. 3. Healthcare-acquired pneumonia. 4. Acute myocardial ischemia. 5. Acute on chronic diastolic congestive heart failure. 6. Hypertension. 7. Metabolic alkalosis. 8. Acute on chronic respiratory acidosis. 9. Overall condition improved, but still tenuous. Needs subacute level of care. PLAN: 1. Discharge planning in progress. 2. Current medication regimen reviewed and we will follow and adjust based on clinical findings. Ashvin Wu M.D. DR: COOPER JOB#: [id number] CC:
--- NOTE | 2018-03-06 01:45 | Progress Note ---
DATE: 03/03/2018 CARDIOLOGY PROGRESS NOTE Late entry for 03/03/2018. SUBJECTIVE: The patient is still requiring BiPAP at night. Discharge planning in progress. Monitored rhythm, sinus with rare PACs. OBJECTIVE: VITAL SIGNS: Blood pressure 125/62, pulse 79, and respirations 20. T-max 99.3. LUNGS: Coarse breath sounds. HEART: Regular rhythm and rate. Normal S1, S2. ABDOMEN: Soft. EXTREMITIES: Trace edema. LABORATORY DATA: Potassium 4.4. Albumin 2.5. White count 7.9 and hemoglobin 12.6. IMPRESSION: 1. Respiratory failure. 2. Paroxysmal bronchospasm. 3. Chronic diastolic congestive heart failure. 4. Acute myocardial ischemia, resolved. 5. Paroxysmal atrial ectopy. 6. Healthcare-acquired pneumonia. PLAN: 1. Continue monitoring volume status, cardiorenal parameters, respiratory status, and adjust therapy accordingly. 2. Wean off BiPAP. 3. Monitor for changes in acid-base parameters. Ashvin Wu M.D. DR: COOPER JOB#: [id number] CC:
[2018-03-06 04:00] VITALS: BP 122/66
[2018-03-06 06:35] LABS: BASOPHILS % (AUTO) 0.9 % (0.0-2.0); EOSINOPHILS % (AUTO) 5.8 % (0.0-3.0); HEMATOCRIT 37.2 % (37.0-47.0); HEMOGLOBIN 11.8 G/DL (12.0-16.0); LYMPHOCYTES % (AUTO) 29.8 % (20.0-45.0); MEAN CORPUSCULAR VOLUME 92 FL (80-99); MONOCYTES % (AUTO) 12.7 % (1.0-10.0); NEUTROPHILS % (AUTO) 50.8 % (45.0-75.0); PLATELET COUNT 161 K/UL (150-450); RED BLOOD COUNT 4.04 M/UL (4.20-5.40); RED CELL DISTRIBUTION WIDTH 15.1 % (11.6-14.8); WHITE BLOOD COUNT 5.6 K/UL (4.8-10.8)
[2018-03-06 07:12] LABS: ALANINE AMINOTRANSFERASE 18 U/L (12-78); ALBUMIN 2.3 G/DL (3.4-5.0); ALBUMIN/GLOBULIN RATIO 0.6 (1.0-2.7); ALKALINE PHOSPHATASE 82 U/L (46-116); ANION GAP 2 mmol/L (5-15); ASPARTATE AMINO TRANSFERASE 12 U/L (15-37); BILIRUBIN,TOTAL 0.3 MG/DL (0.2-1.0); BLOOD UREA NITROGEN 14 mg/dL (7-18); CALCIUM 8.8 MG/DL (8.5-10.1); CARBON DIOXIDE 35 MMOL/L (21-32); CHLORIDE 104 MMOL/L (98-107); CREATININE 0.6 MG/DL (0.55-1.30); POTASSIUM 3.8 MMOL/L (3.5-5.1); SODIUM 141 MMOL/L (136-145)
[2018-03-06 08:00] VITALS: BP 118/65
[2018-03-06] MEDS: dilTIAZem HCl CD 240mg cap ORAL SCH (08:09)
[2018-03-06] MEDS: Vitamin A&D Oint 2oz Tube TOPIC SCH ×2 (08:11→22:54)
--- NOTE | 2018-03-06 08:16 | General Progress Note ---
Assessment/Plan Problem List: (1) COPD exacerbation ICD Codes: J44.1 - Chronic obstructive pulmonary disease with (acute) exacerbation SNOMED: 275803971 (2) HTN (hypertension) ICD Codes: I10 - Essential (primary) hypertension SNOMED: 30482094 (3) Hypoxia ICD Codes: R09.02 - Hypoxemia SNOMED: 144804616 (4) Elevated troponin ICD Codes: R74.8 - Abnormal levels of other serum enzymes SNOMED: 910439282, 871208484, 068347624 (5) Renal insufficiency ICD Codes: N28.9 - Disorder of kidney and ureter, unspecified SNOMED: 968127223, 296328111 (6) Respiratory failure ICD Codes: J96.90 - Respiratory failure, unspecified, unspecified whether with hypoxia or hypercapnia SNOMED: 588935033 Qualifiers: Qualified Codes: J96.02 - Acute respiratory failure with hypercapnia (7) Right lower lobe pneumonia ICD Codes: J18.1 - Lobar pneumonia, unspecified organism SNOMED: 466829671 Qualifiers: Qualified Codes: J18.1 - Lobar pneumonia, unspecified organism Status: stable, progressing Assessment/Plan resp rx o2 bipap per pulm(try nocturnal) keep dry ID appreciated improving lice treated and resolved. no isolation needed refer to [facility] or snf with nocturnal bipap Subjective ROS Limited/Unobtainable: No Constitutional: Reports: malaise, weakness HEENT: Reports: no symptoms Cardiovascular: Reports: no symptoms Respiratory: Reports: no symptoms Gastrointestinal/Abdominal: Reports: no symptoms Genitourinary: Reports: no symptoms Neurologic/Psychiatric: Reports: no symptoms Endocrine: Reports: no symptoms Hematologic/Lymphatic: Reports: no symptoms Allergies: Coded Allergies: No Known Allergies (Unverified , 12/10/15) All Systems: reviewed and negative except above Subjective no new complaints. overall says she feels "better". stable on bipap at night. no bed at [facility]. SNF does not have bipap for pt Objective Last 24 Hour Vital Signs Date Time Temp Pulse Resp B/P (MAP) Pulse Ox O2 Delivery O2 Flow Rate FiO2 03/06/18 08:09 104 118/65 03/06/18 08:00 98.6 104 18 118/65 (82) 97 03/06/18 04:00 98.9 102 18 122/66 (84) 97 03/05/18 23:58 98.9 95 18 117/63 (81) 98 03/05/18 21:00 Nasal Cannula 2.0 Nasal Cannula 1.0 03/05/18 20:00 98.8 94 19 126/69 (88) 98 03/05/18 19:30 97 Nasal Cannula 2.0 28 03/05/18 19:30 84 20 Nasal Cannula 2.0 28 03/05/18 19:30 Nasal Cannula 2.0 28 03/05/18 16:00 98.2 94 18 107/63 (78) 98 03/05/18 12:00 91 03/05/18 12:00 99.1 95 18 129/75 (93) 96 03/05/18 09:00 Nasal Cannula 2.0 Nasal Cannula 1.0 03/05/18 08:33 99 128/63 Intake and Output 03/05/18 03/06/18 19:00 07:00 Intake Total 720 ml Balance 720 ml Intake Oral 720 ml # Voids 1 2 # Bowel Movements 1 Laboratory Tests 03/06/18 05:10: White Blood Count 5.6, Red Blood Count 4.04L, Hemoglobin 11.8L, Hematocrit 37.2 , Mean Corpuscular Volume 92, Mean Corpuscular Hemoglobin 29.1, Mean Corpuscular Hemoglobin Concent 31.6L, Red Cell Distribution Width 15.1H, Platelet Count 161, Mean Platelet Volume 6.2L, Neutrophils (%) (Auto) 50.8, Lymphocytes (%) (Auto) 29.8, Monocytes (%) (Auto) 12.7H, Eosinophils (%) (Auto) 5.8H, Basophils (%) (Auto) 0.9, Sodium Level 141, Potassium Level 3.8, Chloride Level 104, Carbon Dioxide Level 35H, Anion Gap 2L, Blood Urea Nitrogen 14, Creatinine 0.6, Estimat Glomerular Filtration Rate , Glucose Level 101, Calcium Level 8.8, Magnesium Level 1.6L, Total Bilirubin 0.3, Aspartate Amino Transf ( AST/SGOT) 12L, Alanine Aminotransferase (ALT/SGPT) 18, Alkaline Phosphatase 82, Pro-B-Type Natriuretic Peptide 135H, Total Protein 6.0L, Albumin 2.3L, Globulin 3.7, Albumin/Globulin Ratio 0.6L Height (Feet): 5 Height (Inches): 6.00 Weight (Pounds): 205 Objective General Appearance: WD/WN, resting. on nasal cannula, opens eyes. alert. follows commands Neck: supple Cardiovascular: regular rhythm Respiratory/Chest: lungs mostly clear, few rhonchi Abdomen: normal bowel sounds, non tender, soft, no organomegaly Edema: no edema noted Arm (L), no edema noted Arm (R), no edema noted Leg (L), no edema noted Leg (R), no edema noted Pedal (L), no edema noted Pedal (R), no edema noted Generalized Manan Byrd MD Mar 06, 2018 08:16
--- NOTE | 2018-03-06 10:10 | Urology Progress Note ---
Assessment/Plan Assessment/Plan 1. Gross hematuria, improved. 2. Urinary retention hx. 3. Probable neurogenic bladder. 4. Pyuria. 5. Proteinuria. 6. Possible hemorrhagic cystitis. monitor clinically no active bleeding s/p abx off anticoagulation, ok to resume if needed monitor h/h cysto later consider check PVR Subjective Allergies: Coded Allergies: No Known Allergies (Unverified , 12/10/15) Subjective all noted, comfortable, voiding, urine reportedly clear Objective Last 24 Hour Vital Signs Date Time Temp Pulse Resp B/P (MAP) Pulse Ox O2 Delivery O2 Flow Rate FiO2 03/06/18 09:52 Nasal Cannula 2.0 Nasal Cannula 1.0 03/06/18 09:20 Nasal Cannula 03/06/18 09:20 81 20 Nasal Cannula 2.0 28 03/06/18 09:20 96 Nasal Cannula 2.0 28 03/06/18 09:20 Nasal Cannula 2.0 28 03/06/18 09:20 Nasal Cannula 03/06/18 08:09 104 118/65 03/06/18 08:00 98.6 104 18 118/65 (82) 97 03/06/18 04:00 98.9 102 18 122/66 (84) 97 03/05/18 23:58 98.9 95 18 117/63 (81) 98 03/05/18 21:00 Nasal Cannula 2.0 Nasal Cannula 1.0 03/05/18 20:00 98.8 94 19 126/69 (88) 98 03/05/18 19:30 97 Nasal Cannula 2.0 28 03/05/18 19:30 84 20 Nasal Cannula 2.0 28 03/05/18 19:30 Nasal Cannula 2.0 28 03/05/18 16:00 98.2 94 18 107/63 (78) 98 03/05/18 12:00 91 03/05/18 12:00 99.1 95 18 129/75 (93) 96 Intake and Output 03/05/18 03/06/18 19:00 07:00 Intake Total 720 ml Balance 720 ml Intake Oral 720 ml # Voids 1 2 # Bowel Movements 1 Microbiology Date/Time Source Procedure Growth Status 02/03/18 15:30 Blood Blood Culture - Final NO GROWTH AFTER 5 DAYS Complete 02/20/18 18:40 Stool Clostridium difficile Toxin Assay - Final Complete 02/20/18 12:50 Urine,Clean Catch Urine Culture - Final NO GROWTH AFTER 48 HOURS Complete 02/03/18 15:30 Rectal Mucosa - Final NO CARBAPENEM-RESISTANT ENTEROBACTERI... Complete Current Medications Medications (Trade) Dose Ordered Sig/Isabella Route PRN Reason Start Time Stop Time Status Last Admin Dose Admin Acetaminophen (Tylenol) 650 mg Q6H PRN ORAL Mild Pain/Temp > 100.5 03/06/18 06:15 04/05/18 06:14 03/06/18 06:31 Bisacodyl (Dulcolax) 10 mg DAILYPRN PRN RECTAL Constipation 03/05/18 17:00 04/01/18 16:59 Clonidine HCl (Catapres Tab) 0.1 mg Q4H PRN ORAL SBP above 150 03/05/18 18:45 03/21/18 18:38 Diltiazem HCl (Cardizem CD) 240 mg DAILY ORAL 03/06/18 09:00 03/27/18 08:59 03/06/18 08:09 Diphenhydramine HCl (Benadryl) 25 mg Q6H PRN ORAL Itching 03/06/18 06:15 04/05/18 06:14 03/06/18 06:32 Pantoprazole (Protonix) 40 mg DAILY ORAL 03/06/18 09:00 03/29/18 08:59 03/06/18 08:09 Vitamin A/Vitamin D (A & D Oint) 1 applic EVERY 12 HOURS TOPIC 03/05/18 21:00 03/21/18 20:59 03/06/18 08:11 Laboratory Tests 03/06/18 05:10: White Blood Count 5.6, Red Blood Count 4.04L, Hemoglobin 11.8L, Hematocrit 37.2 , Mean Corpuscular Volume 92, Mean Corpuscular Hemoglobin 29.1, Mean Corpuscular Hemoglobin Concent 31.6L, Red Cell Distribution Width 15.1H, Platelet Count 161, Mean Platelet Volume 6.2L, Neutrophils (%) (Auto) 50.8, Lymphocytes (%) (Auto) 29.8, Monocytes (%) (Auto) 12.7H, Eosinophils (%) (Auto) 5.8H, Basophils (%) (Auto) 0.9, Sodium Level 141, Potassium Level 3.8, Chloride Level 104, Carbon Dioxide Level 35H, Anion Gap 2L, Blood Urea Nitrogen 14, Creatinine 0.6, Estimat Glomerular Filtration Rate , Glucose Level 101, Calcium Level 8.8, Magnesium Level 1.6L, Total Bilirubin 0.3, Aspartate Amino Transf ( AST/SGOT) 12L, Alanine Aminotransferase (ALT/SGPT) 18, Alkaline Phosphatase 82, Pro-B-Type Natriuretic Peptide 135H, Total Protein 6.0L, Albumin 2.3L, Globulin 3.7, Albumin/Globulin Ratio 0.6L Height (Feet): 5 Height (Inches): 6.00 Weight (Pounds): 205 Objective exam stable renal u/s (02/19) noted Spenser Marc MD Mar 06, 2018 10:10
[2018-03-06 12:30] VITALS: BP 123/69
[2018-03-06 16:00] VITALS: BP 123/69
[2018-03-06 20:00] VITALS: BP 125/61
[2018-03-07] VITALS: BP 128/69
--- NOTE | 2018-03-07 03:02 | Progress Note ---
DATE: 03/06/2018 CARDIOLOGY PROGRESS NOTE SUBJECTIVE: The patient is feeling better. She is stable at night on BiPAP support. She is awaiting transfer to a lower level of care. Monitored rhythm, sinus. OBJECTIVE: VITAL SIGNS: Blood pressure 125/61, heart rate 89, and respiratory rate 19. NECK: Supple. LUNGS: With coarse breath sounds. CARDIAC: Regular rhythm and rate. Normal S1 and S2 with a fourth heart sound. ABDOMEN: Soft. EXTREMITIES: Trace dependent edema. LABORATORY DATA: White count 5.6 and hemoglobin 11.8. Sodium 141, potassium 3.8, bicarbonate 35, BUN 14, and creatinine 0.6. Magnesium 1.6. Albumin 2.3. Pro-natriuretic peptide is decrease to 135. IMPRESSION: 1. Acute coronary syndrome with non-ST elevation infarction, now recovered. 2. Severe protein-calorie malnutrition. 3. Hypomagnesemia. 4. Chronic obstructive pulmonary disease exacerbation. 5. Healthcare acquired pneumonia. 6. Status post respiratory failure. 7. Acute on chronic respiratory acidosis, now compensated. 8. Secondary metabolic alkalosis. PLAN: 1. No additional diuresis for now. 2. Continue respiratory hygiene and BiPAP support at night. 3. Maintain anti-platelet therapy. 4. Intravenous ____ magnesium replacement ordered. Ashvin Wu M.D. DR: OLGA LIDIA JOB#: [id number] CC:
[2018-03-07 04:00] VITALS: BP 109/64
[2018-03-07 08:00] VITALS: BP 114/62
--- NOTE | 2018-03-07 08:08 | Critical Care Progress Note ---
Assessment/Plan Assessment/Plan IMPRESSION: Acute on chronic respiratory failure, COPD with acute exacerbation, chronic respiratory acidosis and associated hypoxemia, cardiomegaly, pleural effusion and pulmonary edema, protein-calorie malnutrition. PLAN exam overall stable respiratory care as is snf dc BIPAP QHS as tolerated Trilogy ordered- forms signed for SNF use guarded nutrition DVT prophylaxis monitor acid base stable for dc at this time medications/laboratory data/nursing notes reviewed in detail note reviewed and edited care discussed with RN and RT Critical Care - Subjective Condition: stable EKG Rhythm: Sinus Rhythm I&O: Intake and Output 03/06/18 03/07/18 19:00 07:00 Intake Total 720 ml 440 ml Balance 720 ml 440 ml Intake Oral 720 ml 240 ml IV Total 200 ml # Voids 2 5 # Bowel Movements 1 Critical Care - Objective ET-Tube: 7.5 ET Position: 24 Last 24 Hour Vital Signs Date Time Temp Pulse Resp B/P (MAP) Pulse Ox O2 Delivery O2 Flow Rate FiO2 03/07/18 04:00 99.0 107 19 109/64 (79) 97 03/07/18 00:00 98.1 99 19 128/69 (88) 99 03/06/18 21:00 Nasal Cannula 2.0 Nasal Cannula 1.0 03/06/18 20:10 Nasal Cannula 1.0 24 03/06/18 20:09 100 Nasal Cannula 1.0 24 03/06/18 20:08 89 20 Nasal Cannula 1.0 24 03/06/18 20:00 98.1 89 19 125/61 (82) 96 03/06/18 16:00 98.4 93 20 123/69 (87) 98 03/06/18 12:30 98.4 99 20 123/69 (87) 98 03/06/18 09:52 Nasal Cannula 2.0 Nasal Cannula 1.0 03/06/18 09:20 Nasal Cannula 03/06/18 09:20 81 20 Nasal Cannula 2.0 28 03/06/18 09:20 96 Nasal Cannula 2.0 28 03/06/18 09:20 Nasal Cannula 2.0 28 03/06/18 09:20 Nasal Cannula 03/06/18 08:09 104 118/65 Labs: Labs Test 03/06/18 05:10 White Blood Count 5.6 K/UL (4.8-10.8) Red Blood Count 4.04 M/UL (4.20-5.40) Hemoglobin 11.8 G/DL (12.0-16.0) Hematocrit 37.2 % (37.0-47.0) Mean Corpuscular Volume 92 FL (80-99) Mean Corpuscular Hemoglobin 29.1 PG (27.0-31.0) Mean Corpuscular Hemoglobin Concent 31.6 G/DL (32.0-36.0) Red Cell Distribution Width 15.1 % (11.6-14.8) Platelet Count 161 K/UL (150-450) Mean Platelet Volume 6.2 FL (6.5-10.1) Neutrophils (%) (Auto) 50.8 % (45.0-75.0) Lymphocytes (%) (Auto) 29.8 % (20.0-45.0) Monocytes (%) (Auto) 12.7 % (1.0-10.0) Eosinophils (%) (Auto) 5.8 % (0.0-3.0) Basophils (%) (Auto) 0.9 % (0.0-2.0) Sodium Level 141 MMOL/L (136-145) Potassium Level 3.8 MMOL/L (3.5-5.1) Chloride Level 104 MMOL/L (98-107) Carbon Dioxide Level 35 MMOL/L (21-32) Anion Gap 2 mmol/L (5-15) Blood Urea Nitrogen 14 mg/dL (7-18) Creatinine 0.6 MG/DL (0.55-1.30) Estimat Glomerular Filtration Rate mL/min (>60) Glucose Level 101 MG/DL (74-106) Calcium Level 8.8 MG/DL (8.5-10.1) Magnesium Level 1.6 MG/DL (1.8-2.4) Total Bilirubin 0.3 MG/DL (0.2-1.0) Aspartate Amino Transf (AST/SGOT) 12 U/L (15-37) Alanine Aminotransferase (ALT/SGPT) 18 U/L (12-78) Alkaline Phosphatase 82 U/L (46-116) Pro-B-Type Natriuretic Peptide 135 pg/mL (0-125) Total Protein 6.0 G/DL (6.4-8.2) Albumin 2.3 G/DL (3.4-5.0) Globulin 3.7 g/dL Albumin/Globulin Ratio 0.6 (1.0-2.7) Objective: GENERAL: awake; no distress; on oxygen no distress NECK: Supple. No adenopathy. No jugular venous distention. LUNGS: Moderate breath sounds. no rhonchi. No wheezes. stable CARDIAC: S1 and S2. Regular rhythm without murmurs, rubs, or gallops. ABDOMEN: Soft, nontender, nondistended. no HSM; EXTREMITIES: No cyanosis, clubbing; trace edema. NEUROLOGIC: Grossly nonfocal, awake alert reviewed and examined Accucheck: 140 Mk Billings MD Mar 07, 2018 08:08
--- NOTE | 2018-03-07 09:23 | Urology Progress Note ---
Assessment/Plan Assessment/Plan 1. Gross hematuria, improved. 2. Urinary retention hx. 3. Probable neurogenic bladder. 4. Pyuria. 5. Proteinuria. 6. Possible hemorrhagic cystitis. monitor clinically no active bleeding s/p abx off anticoagulation, ok to resume if needed monitor h/h cysto later check PVR Subjective Allergies: Coded Allergies: No Known Allergies (Unverified , 12/10/15) Subjective all noted, comfortable, voiding, urine jama colored by report Objective Last 24 Hour Vital Signs Date Time Temp Pulse Resp B/P (MAP) Pulse Ox O2 Delivery O2 Flow Rate FiO2 03/07/18 08:00 98.8 105 20 114/62 (79) 97 03/07/18 04:00 99.0 107 19 109/64 (79) 97 03/07/18 00:00 98.1 99 19 128/69 (88) 99 03/06/18 21:00 Nasal Cannula 2.0 Nasal Cannula 1.0 03/06/18 20:10 Nasal Cannula 1.0 24 03/06/18 20:09 100 Nasal Cannula 1.0 24 03/06/18 20:08 89 20 Nasal Cannula 1.0 24 03/06/18 20:00 98.1 89 19 125/61 (82) 96 03/06/18 16:00 98.4 93 20 123/69 (87) 98 03/06/18 12:30 98.4 99 20 123/69 (87) 98 03/06/18 09:52 Nasal Cannula 2.0 Nasal Cannula 1.0 Intake and Output 03/06/18 03/07/18 19:00 07:00 Intake Total 720 ml 440 ml Balance 720 ml 440 ml Intake Oral 720 ml 240 ml IV Total 200 ml # Voids 2 5 # Bowel Movements 1 Microbiology Date/Time Source Procedure Growth Status 02/03/18 15:30 Blood Blood Culture - Final NO GROWTH AFTER 5 DAYS Complete 02/20/18 18:40 Stool Clostridium difficile Toxin Assay - Final Complete 02/20/18 12:50 Urine,Clean Catch Urine Culture - Final NO GROWTH AFTER 48 HOURS Complete 02/03/18 15:30 Rectal Mucosa - Final NO CARBAPENEM-RESISTANT ENTEROBACTERI... Complete Current Medications Medications (Trade) Dose Ordered Sig/Isabella Route PRN Reason Start Time Stop Time Status Last Admin Dose Admin Acetaminophen (Tylenol) 650 mg Q6H PRN ORAL Mild Pain/Temp > 100.5 03/06/18 06:15 04/05/18 06:14 03/06/18 06:31 Bisacodyl (Dulcolax) 10 mg DAILYPRN PRN RECTAL Constipation 03/05/18 17:00 04/01/18 16:59 Clonidine HCl (Catapres Tab) 0.1 mg Q4H PRN ORAL SBP above 150 03/05/18 18:45 03/21/18 18:38 Diltiazem HCl (Cardizem CD) 240 mg DAILY ORAL 03/06/18 09:00 03/27/18 08:59 03/06/18 08:09 Diphenhydramine HCl (Benadryl) 25 mg Q6H PRN ORAL Itching 03/06/18 06:15 04/05/18 06:14 03/07/18 05:47 Pantoprazole (Protonix) 40 mg DAILY ORAL 03/06/18 09:00 03/29/18 08:59 03/06/18 08:09 Vitamin A/Vitamin D (A & D Oint) 1 applic EVERY 12 HOURS TOPIC 03/05/18 21:00 03/21/18 20:59 03/06/18 22:54 Height (Feet): 5 Height (Inches): 6.00 Weight (Pounds): 207 Objective exam stable renal u/s (02/19) noted Spenser Marc MD Mar 07, 2018 09:23
[2018-03-07] MEDS: dilTIAZem HCl CD 240mg cap ORAL SCH (09:26)
[2018-03-07] MEDS: Vitamin A&D Oint 2oz Tube TOPIC SCH ×2 (09:26→21:27)
[2018-03-07 12:00] VITALS: BP 120/62
--- NOTE | 2018-03-07 12:46 | Infectious Diseases Prog Note ---
Assessment/Plan Assessment/Plan A; Head lice treated COPD Pneumonia treated Anemia Hypercapnic respiratory failure resolving herpes zoster treated P: Observe off antibiotic Waiting for placement Subjective ROS Limited/Unobtainable: No Constitutional: Reports: no symptoms Respiratory: Reports: dry cough Cardiovascular: Reports: no symptoms Gastrointestinal/Abdominal: Reports: no symptoms Genitourinary: Reports: no symptoms Allergies: Coded Allergies: No Known Allergies (Unverified , 12/10/15) Objective Vital Signs Last 24 Hour Vital Signs Date Time Temp Pulse Resp B/P (MAP) Pulse Ox O2 Delivery O2 Flow Rate FiO2 03/07/18 11:17 Nasal Cannula 1.0 24 03/07/18 11:17 97 Nasal Cannula 1.0 24 03/07/18 09:26 105 114/62 03/07/18 09:00 Room Air Room Air 03/07/18 08:00 98.8 105 20 114/62 (79) 97 03/07/18 04:00 99.0 107 19 109/64 (79) 97 03/07/18 00:00 98.1 99 19 128/69 (88) 99 03/06/18 21:00 Nasal Cannula 2.0 Nasal Cannula 1.0 03/06/18 20:10 Nasal Cannula 1.0 24 03/06/18 20:09 100 Nasal Cannula 1.0 24 03/06/18 20:08 89 20 Nasal Cannula 1.0 24 03/06/18 20:00 98.1 89 19 125/61 (82) 96 03/06/18 16:00 98.4 93 20 123/69 (87) 98 Height (Feet): 5 Height (Inches): 6.00 Weight (Pounds): 207 General Appearance: no acute distress HEENT: mucous membranes moist Respiratory/Chest: lungs clear Cardiovascular: normal rate Abdomen: soft, non tender Extremities: no edema Neurologic/Psychiatric: alert, responsive Current Medications Medications (Trade) Dose Ordered Sig/Isabella Route PRN Reason Start Time Stop Time Status Last Admin Dose Admin Acetaminophen (Tylenol) 650 mg Q6H PRN ORAL Mild Pain/Temp > 100.5 03/06/18 06:15 04/05/18 06:14 03/06/18 06:31 Bisacodyl (Dulcolax) 10 mg DAILYPRN PRN RECTAL Constipation 03/05/18 17:00 04/01/18 16:59 Clonidine HCl (Catapres Tab) 0.1 mg Q4H PRN ORAL SBP above 150 03/05/18 18:45 03/21/18 18:38 Diltiazem HCl (Cardizem CD) 240 mg DAILY ORAL 03/06/18 09:00 03/27/18 08:59 03/07/18 09:26 Diphenhydramine HCl (Benadryl) 25 mg Q6H PRN ORAL Itching 03/06/18 06:15 04/05/18 06:14 03/07/18 05:47 Pantoprazole (Protonix) 40 mg DAILY ORAL 03/06/18 09:00 03/29/18 08:59 03/07/18 09:26 Vitamin A/Vitamin D (A & D Oint) 1 applic EVERY 12 HOURS TOPIC 03/05/18 21:00 03/21/18 20:59 03/07/18 09:26 Amado Estrella MD Mar 07, 2018 12:46
[2018-03-07 16:00] VITALS: BP 118/64
[2018-03-07 20:00] VITALS: BP 117/60
--- NOTE | 2018-03-07 22:30 | Discharge Summary ---
DATE OF ADMISSION: 02/04/2018 DATE OF DISCHARGE: 03/07/2018 ADMISSION DIAGNOSES: 1. Respiratory failure. 2. History of chronic obstructive pulmonary disease. 3. History of alcohol dependence. 4. Hypertension. DISCHARGE DIAGNOSES: 1. Respiratory failure. 2. History of chronic obstructive pulmonary disease. 3. History of alcohol dependence. 4. Hypertension. 5. Pneumonia. 6. Respiratory failure. 7. Lice. 8. Possible acute myocardial infarction. HOSPITAL COURSE: The patient is a pleasant female, who was admitted with complaints of respiratory failure. She was initially admitted to intensive care unit where she is maintained on a vent. She was gradually weaned off the ventilator. She received antibiotics for possible pneumonia. Venous duplex and 2D echo were unremarkable. The patient was extubated and weaned off the ventilator. She was diagnosed with severe lice and failed treatment with [facility] and after okay from the patient and family, her hair was cut. She was once again treated and there was no evidence of any recurrent lice. Her hospital course was complicated by prolonged episodes of intermittent shortness of breath and respiratory acidosis requiring placement on BiPAP. She eventually did stabilize, but required nocturnal BiPAP. It took over a week to find a [facility] facility that could obtain a BiPAP. She was referred to an LTAC, who was unable to make a bed available for the patient. She will be discharged to a [facility] facility on nocturnal BiPAP. DISCHARGE MEDICATIONS: Please see discharge medication list for discharge medications. DIET: Cardiac. ACTIVITIES: [place]. Manan Byrd M.D. DR: SELAM JOB#: [id number] CC:
[2018-03-08] VITALS: BP 127/70
--- NOTE | 2018-03-08 | Progress Note ---
DATE: 03/07/2018 CARDIOLOGY PROGRESS NOTE SUBJECTIVE: The patient continues to require BiPAP support at night. Overall, respiratory parameters slowly improved. OBJECTIVE: VITAL SIGNS: Blood pressure 125/61, pulse 89, respirations 19, and afebrile. LUNGS: Coarse breath sounds. No wheezing. HEART: Regular rhythm and rate. Normal S1, S2. ABDOMEN: Soft. EXTREMITIES: No edema. IMPRESSION: 1. Chronic obstructive pulmonary disease exacerbation. 2. Respiratory failure. 3. History of alcohol dependence. 4. Status post myocardial infarction precipitated by respiratory failure. 5. Acute on chronic respiratory acidosis. PLAN: 1. Stable for subacute facility. 2. Presently, no need for additional diuresis. 3. Maintenance dosing in place. 4. Monitor volume status, cardiorenal parameters, and acid base parameters at subacute facility and adjusting of therapy will be required based on these findings. Ashvin Wu M.D. DR: COOPER JOB#: [id number] CC:
[2018-03-08 04:00] VITALS: BP 136/69
[2018-03-08 08:00] VITALS: BP 124/68
[2018-03-08] MEDS: dilTIAZem HCl CD 240mg cap ORAL SCH (08:58)
[2018-03-08] MEDS: Vitamin A&D Oint 2oz Tube TOPIC SCH ×2 (09:00→20:54)
--- NOTE | 2018-03-08 09:21 | General Progress Note ---
Assessment/Plan Problem List: (1) COPD exacerbation ICD Codes: J44.1 - Chronic obstructive pulmonary disease with (acute) exacerbation SNOMED: 477862143 (2) HTN (hypertension) ICD Codes: I10 - Essential (primary) hypertension SNOMED: 40695594 (3) Hypoxia ICD Codes: R09.02 - Hypoxemia SNOMED: 778482141 (4) Elevated troponin ICD Codes: R74.8 - Abnormal levels of other serum enzymes SNOMED: 415327648, 265190820, 852389870 (5) Renal insufficiency ICD Codes: N28.9 - Disorder of kidney and ureter, unspecified SNOMED: 817447228, 349933901 (6) Respiratory failure ICD Codes: J96.90 - Respiratory failure, unspecified, unspecified whether with hypoxia or hypercapnia SNOMED: 569372880 Qualifiers: Qualified Codes: J96.02 - Acute respiratory failure with hypercapnia (7) Right lower lobe pneumonia ICD Codes: J18.1 - Lobar pneumonia, unspecified organism SNOMED: 742057779 Qualifiers: Qualified Codes: J18.1 - Lobar pneumonia, unspecified organism Status: stable Assessment/Plan resp rx o2 bipap per pulm(try nocturnal) keep dry stable lice treated and resolved. no isolation needed refer to ltach or snf with nocturnal bipap check abg Subjective ROS Limited/Unobtainable: No Constitutional: Reports: malaise, weakness HEENT: Reports: no symptoms Cardiovascular: Reports: no symptoms Respiratory: Reports: cough Gastrointestinal/Abdominal: Reports: no symptoms Genitourinary: Reports: no symptoms Neurologic/Psychiatric: Reports: no symptoms Endocrine: Reports: no symptoms Hematologic/Lymphatic: Reports: no symptoms Allergies: Coded Allergies: No Known Allergies (Unverified , 12/10/15) All Systems: reviewed and negative except above Subjective no new complaints. did not use bipap last night. Per pt, bipap was never placed last night. according to nurse pt refused Objective Last 24 Hour Vital Signs Date Time Temp Pulse Resp B/P (MAP) Pulse Ox O2 Delivery O2 Flow Rate FiO2 03/08/18 08:58 100 124/68 03/08/18 07:33 96 Nasal Cannula 1.0 24 03/08/18 07:33 Nasal Cannula 1.0 24 03/08/18 04:00 98.6 96 19 136/69 (91) 97 03/08/18 00:00 99.0 90 19 127/70 (89) 96 03/07/18 21:00 Nasal Cannula 2.0 Nasal Cannula 1.0 03/07/18 20:16 Nasal Cannula 1.0 24 03/07/18 20:16 95 Nasal Cannula 1.0 24 03/07/18 20:00 97.7 89 19 117/60 (79) 97 03/07/18 16:00 97.9 95 20 118/64 (82) 95 03/07/18 12:00 97.7 108 18 120/62 (81) 92 03/07/18 11:17 Nasal Cannula 1.0 24 03/07/18 11:17 97 Nasal Cannula 1.0 24 03/07/18 09:26 105 114/62 Intake and Output 03/07/18 03/08/18 19:00 07:00 Intake Total 4810 ml 250 ml Output Total 200 ml Balance 4610 ml 250 ml Intake Oral 4810 ml 250 ml Output Urine Total 200 ml # Voids 3 2 Height (Feet): 5 Height (Inches): 6.00 Weight (Pounds): 206 Objective General Appearance: WD/WN, resting. on nasal cannula, opens eyes. alert. follows commands Neck: supple Cardiovascular: regular rhythm Respiratory/Chest: lungs mostly clear, few rhonchi Abdomen: normal bowel sounds, non tender, soft, no organomegaly Edema: no edema noted Arm (L), no edema noted Arm (R), no edema noted Leg (L), no edema noted Leg (R), no edema noted Pedal (L), no edema noted Pedal (R), no edema noted Generalized Manan Byrd MD Mar 08, 2018 09:21
[2018-03-08 12:00] VITALS: BP 134/71
[2018-03-08 16:00] VITALS: BP 112/64
--- NOTE | 2018-03-08 16:01 | Urology Progress Note ---
Assessment/Plan Assessment/Plan 1. Gross hematuria, improved. 2. Urinary retention hx. 3. Probable neurogenic bladder. 4. Pyuria. 5. Proteinuria. 6. Possible hemorrhagic cystitis. monitor clinically no active bleeding s/p abx off anticoagulation, ok to resume if needed monitor h/h cysto later f/u on PVR Subjective Allergies: Coded Allergies: No Known Allergies (Unverified , 12/10/15) Subjective all noted, comfortable, voiding, PVR? Objective Last 24 Hour Vital Signs Date Time Temp Pulse Resp B/P (MAP) Pulse Ox O2 Delivery O2 Flow Rate FiO2 03/08/18 15:02 74 34 98 Facial 30 03/08/18 13:51 81 17 98 Facial 30 03/08/18 12:00 98.1 97 18 134/71 (92) 100 03/08/18 11:12 86 19 97 Facial 30 03/08/18 09:00 Room Air Room Air 03/08/18 08:58 100 124/68 03/08/18 08:00 98.4 113 20 124/68 (86) 93 03/08/18 07:33 96 Nasal Cannula 1.0 24 03/08/18 07:33 Nasal Cannula 1.0 24 03/08/18 04:00 98.6 96 19 136/69 (91) 97 03/08/18 00:00 99.0 90 19 127/70 (89) 96 03/07/18 21:00 Nasal Cannula 2.0 Nasal Cannula 1.0 03/07/18 20:16 Nasal Cannula 1.0 24 03/07/18 20:16 95 Nasal Cannula 1.0 24 03/07/18 20:00 97.7 89 19 117/60 (79) 97 Intake and Output 03/07/18 03/08/18 19:00 07:00 Intake Total 4810 ml 250 ml Output Total 200 ml Balance 4610 ml 250 ml Intake Oral 4810 ml 250 ml Output Urine Total 200 ml # Voids 3 2 Microbiology Date/Time Source Procedure Growth Status 02/03/18 15:30 Blood Blood Culture - Final NO GROWTH AFTER 5 DAYS Complete 02/20/18 18:40 Stool Clostridium difficile Toxin Assay - Final Complete 02/20/18 12:50 Urine,Clean Catch Urine Culture - Final NO GROWTH AFTER 48 HOURS Complete 02/03/18 15:30 Rectal Mucosa - Final NO CARBAPENEM-RESISTANT ENTEROBACTERI... Complete Current Medications Medications (Trade) Dose Ordered Sig/Isabella Route PRN Reason Start Time Stop Time Status Last Admin Dose Admin Acetaminophen (Tylenol) 650 mg Q6H PRN ORAL Mild Pain/Temp > 100.5 03/06/18 06:15 04/05/18 06:14 03/06/18 06:31 Bisacodyl (Dulcolax) 10 mg DAILYPRN PRN RECTAL Constipation 03/05/18 17:00 04/01/18 16:59 Clonidine HCl (Catapres Tab) 0.1 mg Q4H PRN ORAL SBP above 150 03/05/18 18:45 03/21/18 18:38 Diltiazem HCl (Cardizem CD) 240 mg DAILY ORAL 03/06/18 09:00 03/27/18 08:59 03/08/18 08:58 Diphenhydramine HCl (Benadryl) 25 mg Q6H PRN ORAL Itching 03/06/18 06:15 04/05/18 06:14 03/07/18 17:33 Pantoprazole (Protonix) 40 mg DAILY ORAL 03/06/18 09:00 03/29/18 08:59 03/08/18 08:57 Vitamin A/Vitamin D (A & D Oint) 1 applic EVERY 12 HOURS TOPIC 03/05/18 21:00 03/21/18 20:59 03/08/18 09:00 Laboratory Tests 03/08/18 09:36: Arterial Blood pH 7.385, Arterial Blood Partial Pressure CO2 61.4*H, Arterial Blood Partial Pressure O2 54.5L, Arterial Blood HCO3 35.9H, Arterial Blood Oxygen Saturation 88.0*L, Arterial Blood Base Excess 8.8H, Tarun Test Positive Height (Feet): 5 Height (Inches): 6.00 Weight (Pounds): 206 Objective exam stable renal u/s (02/19) noted Spenser Marc MD Mar 08, 2018 16:01
[2018-03-08 20:00] VITALS: BP 118/60
[2018-03-09] VITALS: BP 148/83
[2018-03-09 04:00] VITALS: BP 124/67
[2018-03-09 08:00] VITALS: BP 111/64
--- NOTE | 2018-03-09 08:29 | General Progress Note ---
Assessment/Plan Problem List: (1) COPD exacerbation ICD Codes: J44.1 - Chronic obstructive pulmonary disease with (acute) exacerbation SNOMED: 998844621 (2) HTN (hypertension) ICD Codes: I10 - Essential (primary) hypertension SNOMED: 01155308 (3) Hypoxia ICD Codes: R09.02 - Hypoxemia SNOMED: 095616940 (4) Elevated troponin ICD Codes: R74.8 - Abnormal levels of other serum enzymes SNOMED: 744938654, 893471973, 285059909 (5) Renal insufficiency ICD Codes: N28.9 - Disorder of kidney and ureter, unspecified SNOMED: 940216621, 772583382 (6) Respiratory failure ICD Codes: J96.90 - Respiratory failure, unspecified, unspecified whether with hypoxia or hypercapnia SNOMED: 958879854 Qualifiers: Qualified Codes: J96.02 - Acute respiratory failure with hypercapnia (7) Right lower lobe pneumonia ICD Codes: J18.1 - Lobar pneumonia, unspecified organism SNOMED: 984136374 Qualifiers: Qualified Codes: J18.1 - Lobar pneumonia, unspecified organism Status: stable Assessment/Plan resp rx o2 bipap per pulm(try nocturnal) keep dry stable lice treated and resolved. no isolation needed refer to [facility]ach or snf with nocturnal bipap check abg Subjective ROS Limited/Unobtainable: No Constitutional: Reports: malaise, weakness HEENT: Reports: no symptoms Cardiovascular: Reports: no symptoms Respiratory: Reports: cough, shortness of breath Gastrointestinal/Abdominal: Reports: no symptoms Genitourinary: Reports: no symptoms Neurologic/Psychiatric: Reports: no symptoms Endocrine: Reports: no symptoms Hematologic/Lymphatic: Reports: no symptoms Allergies: Coded Allergies: No Known Allergies (Unverified , 12/10/15) All Systems: reviewed and negative except above Subjective no events. less sob. compliant with bipap last night. more alert today. Per mental health case manager no snf has accepted the pt. Objective Last 24 Hour Vital Signs Date Time Temp Pulse Resp B/P (MAP) Pulse Ox O2 Delivery O2 Flow Rate FiO2 03/09/18 06:36 99 Nasal Cannula 2.0 28 03/09/18 06:36 Nasal Cannula 2.0 28 03/09/18 05:16 88 20 98 Facial 30 03/09/18 04:00 99.6 107 19 124/67 (86) 97 03/09/18 00:51 72 19 97 Facial 30 03/09/18 00:00 97.9 95 19 148/83 (104) 98 03/08/18 22:35 74 18 98 Facial 30 03/08/18 21:09 77 20 97 Facial 30 03/08/18 21:00 Bi-pap Room Air 03/08/18 20:00 97.0 98 19 118/60 (79) 99 03/08/18 18:55 Nasal Cannula 2.0 28 03/08/18 18:55 98 Nasal Cannula 2.0 28 03/08/18 16:00 97.5 98 34 112/64 (80) 97 03/08/18 15:02 74 34 98 Facial 30 03/08/18 13:51 81 17 98 Facial 30 03/08/18 12:00 98.1 97 18 134/71 (92) 100 03/08/18 11:12 86 19 97 Facial 30 03/08/18 09:00 Room Air Room Air 03/08/18 08:58 100 124/68 Intake and Output 03/08/18 03/09/18 19:00 07:00 Intake Total 300 ml 120 ml Output Total 250 ml 150 ml Balance 50 ml -30 ml Intake Oral 300 ml 120 ml Output Urine Total 250 ml Post Void Residual 150 ml Bladder Scan Volume Amount 101-150 ml # Voids 1 # Bowel Movements 1 Laboratory Tests 03/08/18 09:36: Arterial Blood pH 7.385, Arterial Blood Partial Pressure CO2 61.4*H, Arterial Blood Partial Pressure O2 54.5L, Arterial Blood HCO3 35.9H, Arterial Blood Oxygen Saturation 88.0*L, Arterial Blood Base Excess 8.8H, Tarun Test Positive Height (Feet): 5 Height (Inches): 6.00 Weight (Pounds): 210 Objective General Appearance: WD/WN, resting. on nasal cannula, opens eyes. alert. follows commands Neck: supple Cardiovascular: regular rhythm Respiratory/Chest: lungs mostly clear, few rhonchi Abdomen: normal bowel sounds, non tender, soft, no organomegaly Edema: no edema noted Arm (L), no edema noted Arm (R), no edema noted Leg (L), no edema noted Leg (R), no edema noted Pedal (L), no edema noted Pedal (R), no edema noted Generalized [place]oto,Manan M. MD Mar 09, 2018 08:29
--- NOTE | 2018-03-09 08:51 | Urology Progress Note ---
Assessment/Plan Assessment/Plan 1. Gross hematuria, improved. 2. Urinary retention hx. 3. Probable neurogenic bladder. 4. Pyuria. 5. Proteinuria. 6. Possible hemorrhagic cystitis. monitor clinically no active bleeding s/p abx off anticoagulation, ok to resume if needed monitor h/h cysto later Subjective Allergies: Coded Allergies: No Known Allergies (Unverified , 12/10/15) Subjective all noted, comfortable, voiding, PVR 150 cc by report Objective Last 24 Hour Vital Signs Date Time Temp Pulse Resp B/P (MAP) Pulse Ox O2 Delivery O2 Flow Rate FiO2 03/09/18 06:36 99 Nasal Cannula 2.0 28 03/09/18 06:36 Nasal Cannula 2.0 28 03/09/18 05:16 88 20 98 Facial 30 03/09/18 04:00 99.6 107 19 124/67 (86) 97 03/09/18 00:51 72 19 97 Facial 30 03/09/18 00:00 97.9 95 19 148/83 (104) 98 03/08/18 22:35 74 18 98 Facial 30 03/08/18 21:09 77 20 97 Facial 30 03/08/18 21:00 Bi-pap Room Air 03/08/18 20:00 97.0 98 19 118/60 (79) 99 03/08/18 18:55 Nasal Cannula 2.0 28 03/08/18 18:55 98 Nasal Cannula 2.0 28 03/08/18 16:00 97.5 98 34 112/64 (80) 97 03/08/18 15:02 74 34 98 Facial 30 03/08/18 13:51 81 17 98 Facial 30 03/08/18 12:00 98.1 97 18 134/71 (92) 100 03/08/18 11:12 86 19 97 Facial 30 03/08/18 09:00 Room Air Room Air 03/08/18 08:58 100 124/68 Intake and Output 03/08/18 03/09/18 19:00 07:00 Intake Total 300 ml 120 ml Output Total 250 ml 150 ml Balance 50 ml -30 ml Intake Oral 300 ml 120 ml Output Urine Total 250 ml Post Void Residual 150 ml Bladder Scan Volume Amount 101-150 ml # Voids 1 # Bowel Movements 1 Microbiology Date/Time Source Procedure Growth Status 02/03/18 15:30 Blood Blood Culture - Final NO GROWTH AFTER 5 DAYS Complete 02/20/18 18:40 Stool Clostridium difficile Toxin Assay - Final Complete 02/20/18 12:50 Urine,Clean Catch Urine Culture - Final NO GROWTH AFTER 48 HOURS Complete 02/03/18 15:30 Rectal Mucosa - Final NO CARBAPENEM-RESISTANT ENTEROBACTERI... Complete Current Medications Medications (Trade) Dose Ordered Sig/Isabella Route PRN Reason Start Time Stop Time Status Last Admin Dose Admin Acetaminophen (Tylenol) 650 mg Q6H PRN ORAL Mild Pain/Temp > 100.5 03/06/18 06:15 04/05/18 06:14 03/06/18 06:31 Bisacodyl (Dulcolax) 10 mg DAILYPRN PRN RECTAL Constipation 03/05/18 17:00 04/01/18 16:59 Clonidine HCl (Catapres Tab) 0.1 mg Q4H PRN ORAL SBP above 150 03/05/18 18:45 03/21/18 18:38 Diltiazem HCl (Cardizem CD) 240 mg DAILY ORAL 03/06/18 09:00 03/27/18 08:59 03/08/18 08:58 Diphenhydramine HCl (Benadryl) 25 mg Q6H PRN ORAL Itching 03/06/18 06:15 04/05/18 06:14 03/09/18 08:18 Pantoprazole (Protonix) 40 mg DAILY ORAL 03/06/18 09:00 03/29/18 08:59 03/08/18 08:57 Vitamin A/Vitamin D (A & D Oint) 1 applic EVERY 12 HOURS TOPIC 03/05/18 21:00 03/21/18 20:59 03/08/18 20:54 Laboratory Tests 03/08/18 09:36: Arterial Blood pH 7.385, Arterial Blood Partial Pressure CO2 61.4*H, Arterial Blood Partial Pressure O2 54.5L, Arterial Blood HCO3 35.9H, Arterial Blood Oxygen Saturation 88.0*L, Arterial Blood Base Excess 8.8H, Tarun Test Positive Height (Feet): 5 Height (Inches): 6.00 Weight (Pounds): 210 Objective exam stable renal u/s (02/19) noted Spenser Marc MD Mar 09, 2018 08:51
[2018-03-09] MEDS: dilTIAZem HCl CD 240mg cap ORAL SCH (09:00)
[2018-03-09] MEDS: Vitamin A&D Oint 2oz Tube TOPIC SCH ×2 (09:15→20:30)
--- NOTE | 2018-03-09 10:23 | Infectious Diseases Prog Note ---
Assessment/Plan Assessment/Plan antibiotics : none A 1. pneumonia s/p rx 2. head lice s/p rx 3. COPD 4. ? zoster s/p rx P 1. observe off antibiotics 2. dc planned Subjective ROS Limited/Unobtainable: Yes Allergies: Coded Allergies: No Known Allergies (Unverified , 12/10/15) Objective Vital Signs Last 24 Hour Vital Signs Date Time Temp Pulse Resp B/P (MAP) Pulse Ox O2 Delivery O2 Flow Rate FiO2 03/09/18 09:00 96 111/64 03/09/18 08:00 99.0 96 20 111/64 (80) 95 03/09/18 06:36 99 Nasal Cannula 2.0 28 03/09/18 06:36 Nasal Cannula 2.0 28 03/09/18 05:16 88 20 98 Facial 30 03/09/18 04:00 99.6 107 19 124/67 (86) 97 03/09/18 00:51 72 19 97 Facial 30 03/09/18 00:00 97.9 95 19 148/83 (104) 98 03/08/18 22:35 74 18 98 Facial 30 03/08/18 21:09 77 20 97 Facial 30 03/08/18 21:00 Bi-pap Room Air 03/08/18 20:00 97.0 98 19 118/60 (79) 99 03/08/18 18:55 Nasal Cannula 2.0 28 03/08/18 18:55 98 Nasal Cannula 2.0 28 03/08/18 16:00 97.5 98 34 112/64 (80) 97 03/08/18 15:02 74 34 98 Facial 30 03/08/18 13:51 81 17 98 Facial 30 03/08/18 12:00 98.1 97 18 134/71 (92) 100 03/08/18 11:12 86 19 97 Facial 30 Height (Feet): 5 Height (Inches): 6.00 Weight (Pounds): 210 Respiratory/Chest: lungs clear Cardiovascular: normal rate, regular rhythm, no gallop/murmur Abdomen: soft, non tender Extremities: no edema Current Medications Medications (Trade) Dose Ordered Sig/Isabella Route PRN Reason Start Time Stop Time Status Last Admin Dose Admin Acetaminophen (Tylenol) 650 mg Q6H PRN ORAL Mild Pain/Temp > 100.5 03/06/18 06:15 04/05/18 06:14 03/06/18 06:31 Bisacodyl (Dulcolax) 10 mg DAILYPRN PRN RECTAL Constipation 03/05/18 17:00 04/01/18 16:59 Clonidine HCl (Catapres Tab) 0.1 mg Q4H PRN ORAL SBP above 150 03/05/18 18:45 03/21/18 18:38 Diltiazem HCl (Cardizem CD) 240 mg DAILY ORAL 03/06/18 09:00 03/27/18 08:59 03/08/18 08:58 Diphenhydramine HCl (Benadryl) 25 mg Q6H PRN ORAL Itching 03/06/18 06:15 04/05/18 06:14 03/09/18 08:18 Pantoprazole (Protonix) 40 mg DAILY ORAL 03/06/18 09:00 03/29/18 08:59 03/09/18 09:14 Vitamin A/Vitamin D (A & D Oint) 1 applic EVERY 12 HOURS TOPIC 03/05/18 21:00 03/21/18 20:59 03/09/18 09:15 Radha Macias MD Mar 09, 2018 10:22
[2018-03-09 12:00] VITALS: BP 120/71
[2018-03-09 16:00] VITALS: BP 134/61
[2018-03-09 20:00] VITALS: BP 145/82
--- NOTE | 2018-03-09 20:16 | Pulmonology Progress Note ---
Assessment/Plan Assessment/Plan PULMONARY PROGRESS NOTE IMPRESSION: Acute respiratory failure, COPD with acute exacerbation, respiratory acidosis and associated hypoxemia, cardiomegaly, pleural effusion and pulmonary edema, protein-calorie malnutrition. Improved SOB, on BiPAP PRN CXR: 1. Subsegmental atelectasis versus infiltrate in the left lung base/retrocardiac region, stable. 2. Blunting of the left breast phrenic angle suggesting a small left pleural effusion. PLAN seen earlier respiratory care reviewed IV antibiotics IV steroids taper- to prednisone supportive care as able monitor closely for now and try to wean daily guarded feeds position change and monitor for change skin monitoring DVT prophylaxis hope to avoid trach medications/laboratory data/nursing notes/ICU care reviewed in detail note reviewed and edited care discussed with RN and RT ICU time spent 40 minutes Critical Care - Subjective Interval Events: stable and off vent no distress on oxygen Condition: improving EKG Rhythm: Sinus Rhythm I&O: Intake and Output 02/18/18 02/19/18 19:00 07:00 Intake Total 880.0 ml 357.5 ml Output Total 1460 ml 600 ml Balance -580.0 ml -242.5 ml IV Total 220.0 ml 137.5 ml Tube Feeding 660 ml 220 ml Output Urine Total 1460 ml 600 ml # Bowel Movements 2 Critical Care - Objective CXR: minimal atelectasis ET-Tube: 7.5 ET Position: 24 Vital Signs noted Date Time Temp Pulse Resp B/P (MAP) Pulse Ox O2 Delivery O2 Flow Rate FiO2 02/19/18 19:20 Nasal Cannula 2.0 28 02/19/18 19:20 82 16 98 Nasal Cannula 2.0 28 02/19/18 19:20 98 Nasal Cannula 2.0 28 02/19/18 17:10 81 02/19/18 16:00 97.8 76 16 155/80 (105) 99 97.8 02/19/18 16:00 78 02/19/18 16:00 Nasal Cannula 2.0 Nasal Cannula 2.0 02/19/18 14:53 85 147/93 02/19/18 13:55 85 16 100 Nasal Cannula 2.0 28 02/19/18 13:45 84 16 98 Nasal Cannula 2.0 28 02/19/18 12:00 76 02/19/18 12:00 Nasal Cannula 2.0 Nasal Cannula 2.0 02/19/18 12:00 97.5 76 16 147/93 (111) 100 97.5 02/19/18 10:20 02/19/18 09:00 80 15 144/78 (100) 100 02/19/18 08:00 77 21 155/80 (105) 99 02/19/18 08:00 85 02/19/18 08:00 Nasal Cannula 2.0 Nasal Cannula 2.0 02/19/18 07:48 76 16 100 Nasal Cannula 2.0 28 02/19/18 07:46 Nasal Cannula 3.0 32 02/19/18 07:39 87 16 98 Nasal Cannula 2.0 28 02/19/18 07:38 98 Nasal Cannula 3.0 32 02/19/18 07:00 98.4 78 22 156/88 (110) 99 98.4 02/19/18 06:12 80 164/83 02/19/18 06:00 79 22 164/83 (110) 99 02/19/18 05:00 79 22 161/91 (114) 99 02/19/18 04:00 Nasal Cannula 2.0 Nasal Cannula 2.0 02/19/18 04:00 78 22 166/84 (111) 99 02/19/18 04:00 80 02/19/18 03:00 80 22 166/82 (110) 99 02/19/18 02:00 82 22 146/90 (108) 99 02/19/18 01:00 98.2 81 22 148/69 (95) 99 98.2 02/19/18 00:58 73 17 100 Nasal Cannula 2.0 28 02/19/18 00:57 28 02/19/18 00:50 76 17 99 Nasal Cannula 2.0 28 02/19/18 00:00 85 02/19/18 00:00 Nasal Cannula 2.0 Nasal Cannula 2.0 02/19/18 00:00 76 22 150/79 (102) 99 02/18/18 23:00 91 22 146/93 (110) 99 02/18/18 22:00 88 22 130/65 (86) 99 02/18/18 21:55 91 140/80 02/18/18 21:00 98.0 93 22 140/80 (100) 99 98.0 02/18/18 20:00 83 02/18/18 20:00 90 22 124/71 (88) 99 02/18/18 20:00 Nasal Cannula 2.0 Nasal Cannula 2.0 Labs: Labs Test 02/17/18 18:17 02/18/18 04:00 02/18/18 14:11 02/19/18 04:54 Urine Color Red Urine Appearance Turbid Urine pH 7 (4.5-8.0) Urine Specific [place] 1.010 (1.005-1.035) Urine Protein 3+ (NEGATIVE) Urine Glucose (UA) Negative (NEGATIVE) Urine Ketones Negative (NEGATIVE) Urine Blood 5+ (NEGATIVE) Urine Nitrite Negative (NEGATIVE) Urine Bilirubin Negative (NEGATIVE) Urine Urobilinogen Normal MG/DL (0.0-1.0) Urine Leukocyte Esterase 3+ (NEGATIVE) Urine RBC Tntc /HPF (0 - 2) Urine WBC 15-20 /HPF (0 - 2) Urine Squamous Epithelial Cells Few /LPF (NONE/OCC) Urine Bacteria Few /HPF (NONE) White Blood Count 11.1 K/UL (4.8-10.8) 10.0 K/UL (4.8-10.8) Red Blood Count 5.20 M/UL (4.20-5.40) 5.32 M/UL (4.20-5.40) Hemoglobin 14.8 G/DL (12.0-16.0) 14.8 G/DL (12.0-16.0) Hematocrit 46.1 % (37.0-47.0) 47.8 % (37.0-47.0) Mean Corpuscular Volume 89 FL (80-99) 90 FL (80-99) Mean Corpuscular Hemoglobin 28.4 PG (27.0-31.0) 27.8 PG (27.0-31.0) Mean Corpuscular Hemoglobin Concent 32.0 G/DL (32.0-36.0) 30.9 G/DL (32.0-36.0) Red Cell Distribution Width 14.3 % (11.6-14.8) 14.1 % (11.6-14.8) Platelet Count 141 K/UL (150-450) 137 K/UL (150-450) Mean Platelet Volume 6.8 FL (6.5-10.1) 7.3 FL (6.5-10.1) Neutrophils (%) (Auto) % (45.0-75.0) % (45.0-75.0) Lymphocytes (%) (Auto) % (20.0-45.0) % (20.0-45.0) Monocytes (%) (Auto) % (1.0-10.0) % (1.0-10.0) Eosinophils (%) (Auto) % (0.0-3.0) % (0.0-3.0) Basophils (%) (Auto) % (0.0-2.0) % (0.0-2.0) Differential Total Cells Counted 100 100 Neutrophils % (Manual) 91 % (45-75) 88 % (45-75) Lymphocytes % (Manual) 3 % (20-45) 5 % (20-45) Monocytes % (Manual) 6 % (1-10) 7 % (1-10) Eosinophils % (Manual) 0 % (0-3) 0 % (0-3) Basophils % (Manual) 0 % (0-2) 0 % (0-2) Band Neutrophils 0 % (0-8) 0 % (0-8) Platelet Estimate Decreased Decreased Platelet Morphology Normal Normal Red Blood Cell Morphology Normal Normal Sodium Level 140 MMOL/L (136-145) 142 MMOL/L (136-145) Potassium Level 3.8 MMOL/L (3.5-5.1) 3.8 MMOL/L (3.5-5.1) Chloride Level 104 MMOL/L (98-107) 103 MMOL/L (98-107) Carbon Dioxide Level 31 MMOL/L (21-32) 34 MMOL/L (21-32) Anion Gap 5 mmol/L (5-15) 5 mmol/L (5-15) Blood Urea Nitrogen 17 mg/dL (7-18) 19 mg/dL (7-18) Creatinine 0.6 MG/DL (0.55-1.30) 0.5 MG/DL (0.55-1.30) Estimat Glomerular Filtration Rate mL/min (>60) mL/min (>60) Glucose Level 125 MG/DL (74-106) 121 MG/DL (74-106) Calcium Level 8.9 MG/DL (8.5-10.1) 9.2 MG/DL (8.5-10.1) Total Bilirubin 0.3 MG/DL (0.2-1.0) 0.4 MG/DL (0.2-1.0) Aspartate Amino Transf (AST/SGOT) 8 U/L (15-37) 5 U/L (15-37) Alanine Aminotransferase (ALT/SGPT) 15 U/L (12-78) 17 U/L (12-78) Alkaline Phosphatase 82 U/L (46-116) 76 U/L (46-116) Total Protein 5.9 G/DL (6.4-8.2) 6.1 G/DL (6.4-8.2) Albumin 2.3 G/DL (3.4-5.0) 2.5 G/DL (3.4-5.0) Globulin 3.6 g/dL 3.6 g/dL Albumin/Globulin Ratio 0.6 (1.0-2.7) 0.7 (1.0-2.7) Arterial Blood pH 7.450 (7.350-7.450) Arterial Blood Partial Pressure CO2 48.4 mmHg (35.0-45.0) Arterial Blood Partial Pressure O2 86.4 mmHg (75.0-100.0) Arterial Blood HCO3 33.3 mmol/L (22.0-26.0) Arterial Blood Oxygen Saturation 97.0 % (95-100) Arterial Blood Base Excess 7.9 (-2-2) Tarun Test Positive Phosphorus Level 2.3 MG/DL (2.5-4.9) Magnesium Level 1.9 MG/DL (1.8-2.4) Pro-B-Type Natriuretic Peptide 449 pg/mL (0-125) Objective: GENERAL: sedated/withdrawn; off vent; on NC NECK: Supple. No adenopathy. No jugular venous distention. orally intubated LUNGS: Moderate breath sounds. no rhonchi. No wheezes. stable CARDIAC: S1 and S2. Regular rhythm without murmurs, rubs, or gallops. ABDOMEN: Soft, nontender, nondistended. no HSM; feeding tube in place EXTREMITIES: No cyanosis, clubbing; trace edema. NEUROLOGIC: Grossly nonfocal, sedated reviewed and examined Micro: Microbiology Date/Time Source Procedure Growth Status 02/17/18 18:17 Indwelling Cath Urine Culture - Preliminary NO GROWTH Resulted Subjective ROS Limited/Unobtainable: No Allergies: Coded Allergies: No Known Allergies (Unverified , 12/10/15) Objective Last 24 Hour Vital Signs Date Time Temp Pulse Resp B/P (MAP) Pulse Ox O2 Delivery O2 Flow Rate FiO2 03/09/18 19:04 Nasal Cannula 2.0 28 03/09/18 19:04 99 Nasal Cannula 2.0 28 03/09/18 16:00 98.2 98 19 134/61 (85) 100 03/09/18 12:00 98.2 102 18 120/71 (87) 100 03/09/18 09:00 Room Air 3.0 Room Air 03/09/18 09:00 96 111/64 03/09/18 08:00 99.0 96 20 111/64 (80) 95 03/09/18 06:36 99 Nasal Cannula 2.0 28 03/09/18 06:36 Nasal Cannula 2.0 28 03/09/18 05:16 88 20 98 Facial 30 03/09/18 04:00 99.6 107 19 124/67 (86) 97 03/09/18 00:51 72 19 97 Facial 30 03/09/18 00:00 97.9 95 19 148/83 (104) 98 03/08/18 22:35 74 18 98 Facial 30 03/08/18 21:09 77 20 97 Facial 30 03/08/18 21:00 Bi-pap Room Air Intake and Output 03/08/18 03/09/18 19:00 07:00 Intake Total 300 ml 120 ml Output Total 250 ml 150 ml Balance 50 ml -30 ml Intake Oral 300 ml 120 ml Output Urine Total 250 ml Post Void Residual 150 ml Bladder Scan Volume Amount 101-150 ml # Voids 1 # Bowel Movements 1 Current Medications Medications (Trade) Dose Ordered Sig/Isabella Route PRN Reason Start Time Stop Time Status Last Admin Dose Admin Acetaminophen (Tylenol) 650 mg Q6H PRN ORAL Mild Pain/Temp > 100.5 03/06/18 06:15 04/05/18 06:14 03/06/18 06:31 Bisacodyl (Dulcolax) 10 mg DAILYPRN PRN RECTAL Constipation 03/05/18 17:00 04/01/18 16:59 Clonidine HCl (Catapres Tab) 0.1 mg Q4H PRN ORAL SBP above 150 03/05/18 18:45 03/21/18 18:38 Diltiazem HCl (Cardizem CD) 240 mg DAILY ORAL 03/06/18 09:00 03/27/18 08:59 03/08/18 08:58 Diphenhydramine HCl (Benadryl) 25 mg Q6H PRN ORAL Itching 03/06/18 06:15 04/05/18 06:14 03/09/18 08:18 Pantoprazole (Protonix) 40 mg DAILY ORAL 03/06/18 09:00 03/29/18 08:59 03/09/18 09:14 Vitamin A/Vitamin D (A & D Oint) 1 applic EVERY 12 HOURS TOPIC 03/05/18 21:00 03/21/18 20:59 03/09/18 09:15 Ashvin Serrano MD Mar 09, 2018 20:16
[2018-03-10] VITALS: BP 139/79
[2018-03-10 04:00] VITALS: BP 128/71
[2018-03-10 08:00] VITALS: BP 106/64
[2018-03-10] MEDS: dilTIAZem HCl CD 240mg cap ORAL SCH (09:00)
--- NOTE | 2018-03-10 09:24 | Urology Progress Note ---
Assessment/Plan Assessment/Plan 1. Gross hematuria, improved. 2. Urinary retention hx. 3. Probable neurogenic bladder. 4. Pyuria. 5. Proteinuria. 6. Possible hemorrhagic cystitis. monitor clinically no active bleeding s/p abx off anticoagulation, ok to resume if needed monitor h/h cysto later Subjective Allergies: Coded Allergies: No Known Allergies (Unverified , 12/10/15) Subjective all noted, comfortable, voiding, PVR 150 cc by report Objective Last 24 Hour Vital Signs Date Time Temp Pulse Resp B/P (MAP) Pulse Ox O2 Delivery O2 Flow Rate FiO2 03/10/18 08:00 97.3 106 19 106/64 (78) 95 03/10/18 07:39 98 Nasal Cannula 2.0 28 03/10/18 07:39 Nasal Cannula 2.0 28 03/10/18 05:04 99 19 98 Facial 30 03/10/18 04:00 98.5 98 20 128/71 (90) 100 03/10/18 02:55 95 24 97 Facial 30 03/10/18 01:35 94 18 98 Facial 30 03/10/18 00:00 98.9 104 20 139/79 (99) 100 03/09/18 23:15 99 17 98 Facial 30 03/09/18 21:00 Room Air 2.0 Room Air 03/09/18 20:00 98.8 101 20 145/82 (103) 100 03/09/18 19:04 Nasal Cannula 2.0 28 03/09/18 19:04 99 Nasal Cannula 2.0 28 03/09/18 16:00 98.2 98 19 134/61 (85) 100 03/09/18 12:00 98.2 102 18 120/71 (87) 100 Intake and Output 03/09/18 03/10/18 18:59 06:59 Intake Total 340 ml Balance 340 ml Intake Oral 240 ml Other 100 ml # Voids 1 3 # Bowel Movements 1 2 Microbiology Date/Time Source Procedure Growth Status 02/03/18 15:30 Blood Blood Culture - Final NO GROWTH AFTER 5 DAYS Complete 02/20/18 18:40 Stool Clostridium difficile Toxin Assay - Final Complete 02/20/18 12:50 Urine,Clean Catch Urine Culture - Final NO GROWTH AFTER 48 HOURS Complete 02/03/18 15:30 Rectal Mucosa - Final NO CARBAPENEM-RESISTANT ENTEROBACTERI... Complete Current Medications Medications (Trade) Dose Ordered Sig/Isabella Route PRN Reason Start Time Stop Time Status Last Admin Dose Admin Acetaminophen (Tylenol) 650 mg Q6H PRN ORAL Mild Pain/Temp > 100.5 03/06/18 06:15 04/05/18 06:14 03/06/18 06:31 Bisacodyl (Dulcolax) 10 mg DAILYPRN PRN RECTAL Constipation 03/05/18 17:00 04/01/18 16:59 Clonidine HCl (Catapres Tab) 0.1 mg Q4H PRN ORAL SBP above 150 03/05/18 18:45 03/21/18 18:38 Diltiazem HCl (Cardizem CD) 240 mg DAILY ORAL 03/06/18 09:00 03/27/18 08:59 03/08/18 08:58 Diphenhydramine HCl (Benadryl) 25 mg Q6H PRN ORAL Itching 03/06/18 06:15 04/05/18 06:14 03/09/18 08:18 Pantoprazole (Protonix) 40 mg DAILY ORAL 03/06/18 09:00 03/29/18 08:59 03/09/18 09:14 Vitamin A/Vitamin D (A & D Oint) 1 applic EVERY 12 HOURS TOPIC 03/05/18 21:00 03/21/18 20:59 03/09/18 20:30 Height (Feet): 5 Height (Inches): 6.00 Weight (Pounds): 222 Objective exam stable renal u/s (02/19) noted last CXR noted Sepnser Marc MD Mar 10, 2018 09:24
[2018-03-10] MEDS: Vitamin A&D Oint 2oz Tube TOPIC SCH ×2 (10:13→20:43)
--- NOTE | 2018-03-10 11:53 | General Progress Note ---
Assessment/Plan Problem List: (1) COPD exacerbation ICD Codes: J44.1 - Chronic obstructive pulmonary disease with (acute) exacerbation SNOMED: 766128967 (2) HTN (hypertension) ICD Codes: I10 - Essential (primary) hypertension SNOMED: 04254013 (3) Hypoxia ICD Codes: R09.02 - Hypoxemia SNOMED: 644566143 (4) Elevated troponin ICD Codes: R74.8 - Abnormal levels of other serum enzymes SNOMED: 924856025, 851034874, 534589651 (5) Renal insufficiency ICD Codes: N28.9 - Disorder of kidney and ureter, unspecified SNOMED: 258412877, 046107527 (6) Respiratory failure ICD Codes: J96.90 - Respiratory failure, unspecified, unspecified whether with hypoxia or hypercapnia SNOMED: 917358286 Qualifiers: Qualified Codes: J96.02 - Acute respiratory failure with hypercapnia (7) Right lower lobe pneumonia ICD Codes: J18.1 - Lobar pneumonia, unspecified organism SNOMED: 531259752 Qualifiers: Qualified Codes: J18.1 - Lobar pneumonia, unspecified organism Status: stable, progressing Assessment/Plan resp rx o2 bipap per pulm(try nocturnal) keep dry stable lice treated and resolved. no isolation needed refer to ltach or snf with nocturnal bipap monitor labs Subjective ROS Limited/Unobtainable: No Constitutional: Reports: malaise, weakness HEENT: Reports: no symptoms Cardiovascular: Reports: no symptoms Respiratory: Reports: no symptoms Gastrointestinal/Abdominal: Reports: no symptoms Genitourinary: Reports: no symptoms Neurologic/Psychiatric: Reports: no symptoms Endocrine: Reports: no symptoms Hematologic/Lymphatic: Reports: no symptoms Allergies: Coded Allergies: No Known Allergies (Unverified , 12/10/15) All Systems: reviewed and negative except above Subjective no events. denies sob. compliant with bipap last night. more alert today. Per case finishing machine adjuster no snf has accepted the pt. Objective Last 24 Hour Vital Signs Date Time Temp Pulse Resp B/P (MAP) Pulse Ox O2 Delivery O2 Flow Rate FiO2 03/10/18 09:00 106 106/64 03/10/18 09:00 Room Air 2.0 Room Air 03/10/18 08:00 97.3 106 19 106/64 (78) 95 03/10/18 07:39 98 Nasal Cannula 2.0 28 11/11/18 07:39 Nasal Cannula 2.0 28 03/10/18 05:04 99 19 98 Facial 30 03/10/18 04:00 98.5 98 20 128/71 (90) 100 03/10/18 02:55 95 24 97 Facial 30 03/10/18 01:35 94 18 98 Facial 30 03/10/18 00:00 98.9 104 20 139/79 (99) 100 03/09/18 23:15 99 17 98 Facial 30 03/09/18 21:00 Room Air 2.0 Room Air 03/09/18 20:00 98.8 101 20 145/82 (103) 100 03/09/18 19:04 Nasal Cannula 2.0 28 03/09/18 19:04 99 Nasal Cannula 2.0 28 03/09/18 16:00 98.2 98 19 134/61 (85) 100 03/09/18 12:00 98.2 102 18 120/71 (87) 100 Intake and Output 03/09/18 03/10/18 19:00 07:00 Intake Total 340 ml Balance 340 ml Intake Oral 240 ml Other 100 ml # Voids 1 3 # Bowel Movements 1 2 Height (Feet): 5 Height (Inches): 6.00 Weight (Pounds): 222 Objective General Appearance: WD/WN, resting. on nasal cannula, opens eyes. alert. follows commands Neck: supple Cardiovascular: regular rhythm Respiratory/Chest: lungs mostly clear, few rhonchi Abdomen: normal bowel sounds, non tender, soft, no organomegaly Edema: no edema noted Arm (L), no edema noted Arm (R), no edema noted Leg (L), no edema noted Leg (R), no edema noted Pedal (L), no edema noted Pedal (R), no edema noted Generalized Maann Byrd MD Mar 10, 2018 11:53
[2018-03-10 11:55] VITALS: BP 122/63
--- NOTE | 2018-03-10 12:13 | Pulmonology Progress Note ---
Assessment/Plan Assessment/Plan PULMONARY PROGRESS NOTE IMPRESSION: Acute respiratory failure, COPD with acute exacerbation, respiratory acidosis and associated hypoxemia, cardiomegaly, pleural effusion and pulmonary edema, protein-calorie malnutrition. Improved SOB, on BiPAP PRN CXR: 1. Subsegmental atelectasis versus infiltrate in the left lung base/retrocardiac region, stable. 2. Blunting of the left breast phrenic angle suggesting a small left pleural effusion. PLAN seen earlier respiratory care reviewed IV antibiotics IV steroids taper- to prednisone supportive care as able monitor closely for now and try to wean daily guarded feeds position change and monitor for change skin monitoring DVT prophylaxis hope to avoid trach medications/laboratory data/nursing notes/ICU care reviewed in detail note reviewed and edited care discussed with RN and RT ICU time spent 40 minutes Critical Care - Subjective Interval Events: stable and off vent no distress on oxygen Condition: improving EKG Rhythm: Sinus Rhythm I&O: Intake and Output 02/18/18 02/19/18 19:00 07:00 Intake Total 880.0 ml 357.5 ml Output Total 1460 ml 600 ml Balance -580.0 ml -242.5 ml IV Total 220.0 ml 137.5 ml Tube Feeding 660 ml 220 ml Output Urine Total 1460 ml 600 ml # Bowel Movements 2 Critical Care - Objective CXR: minimal atelectasis ET-Tube: 7.5 ET Position: 24 Vital Signs noted Date Time Temp Pulse Resp B/P (MAP) Pulse Ox O2 Delivery O2 Flow Rate FiO2 02/19/18 19:20 Nasal Cannula 2.0 28 02/19/18 19:20 82 16 98 Nasal Cannula 2.0 28 02/19/18 19:20 98 Nasal Cannula 2.0 28 02/19/18 17:10 81 02/19/18 16:00 97.8 76 16 155/80 (105) 99 97.8 02/19/18 16:00 78 02/19/18 16:00 Nasal Cannula 2.0 Nasal Cannula 2.0 02/19/18 14:53 85 147/93 02/19/18 13:55 85 16 100 Nasal Cannula 2.0 28 02/19/18 13:45 84 16 98 Nasal Cannula 2.0 28 02/19/18 12:00 76 02/19/18 12:00 Nasal Cannula 2.0 Nasal Cannula 2.0 02/19/18 12:00 97.5 76 16 147/93 (111) 100 97.5 02/19/18 10:20 02/19/18 09:00 80 15 144/78 (100) 100 02/19/18 08:00 77 21 155/80 (105) 99 02/19/18 08:00 85 02/19/18 08:00 Nasal Cannula 2.0 Nasal Cannula 2.0 02/19/18 07:48 76 16 100 Nasal Cannula 2.0 28 02/19/18 07:46 Nasal Cannula 3.0 32 02/19/18 07:39 87 16 98 Nasal Cannula 2.0 28 02/19/18 07:38 98 Nasal Cannula 3.0 32 02/19/18 07:00 98.4 78 22 156/88 (110) 99 98.4 02/19/18 06:12 80 164/83 02/19/18 06:00 79 22 164/83 (110) 99 02/19/18 05:00 79 22 161/91 (114) 99 02/19/18 04:00 Nasal Cannula 2.0 Nasal Cannula 2.0 02/19/18 04:00 78 22 166/84 (111) 99 02/19/18 04:00 80 02/19/18 03:00 80 22 166/82 (110) 99 02/19/18 02:00 82 22 146/90 (108) 99 02/19/18 01:00 98.2 81 22 148/69 (95) 99 98.2 02/19/18 00:58 73 17 100 Nasal Cannula 2.0 28 02/19/18 00:57 28 02/19/18 00:50 76 17 99 Nasal Cannula 2.0 28 02/19/18 00:00 85 02/19/18 00:00 Nasal Cannula 2.0 Nasal Cannula 2.0 02/19/18 00:00 76 22 150/79 (102) 99 02/18/18 23:00 91 22 146/93 (110) 99 02/18/18 22:00 88 22 130/65 (86) 99 02/18/18 21:55 91 140/80 02/18/18 21:00 98.0 93 22 140/80 (100) 99 98.0 02/18/18 20:00 83 02/18/18 20:00 90 22 124/71 (88) 99 02/18/18 20:00 Nasal Cannula 2.0 Nasal Cannula 2.0 Labs: Labs Test 02/17/18 18:17 02/18/18 04:00 02/18/18 14:11 02/19/18 04:54 Urine Color Red Urine Appearance Turbid Urine pH 7 (4.5-8.0) Urine Specific [place] 1.010 (1.005-1.035) Urine Protein 3+ (NEGATIVE) Urine Glucose (UA) Negative (NEGATIVE) Urine Ketones Negative (NEGATIVE) Urine Blood 5+ (NEGATIVE) Urine Nitrite Negative (NEGATIVE) Urine Bilirubin Negative (NEGATIVE) Urine Urobilinogen Normal MG/DL (0.0-1.0) Urine Leukocyte Esterase 3+ (NEGATIVE) Urine RBC Tntc /HPF (0 - 2) Urine WBC 15-20 /HPF (0 - 2) Urine Squamous Epithelial Cells Few /LPF (NONE/OCC) Urine Bacteria Few /HPF (NONE) White Blood Count 11.1 K/UL (4.8-10.8) 10.0 K/UL (4.8-10.8) Red Blood Count 5.20 M/UL (4.20-5.40) 5.32 M/UL (4.20-5.40) Hemoglobin 14.8 G/DL (12.0-16.0) 14.8 G/DL (12.0-16.0) Hematocrit 46.1 % (37.0-47.0) 47.8 % (37.0-47.0) Mean Corpuscular Volume 89 FL (80-99) 90 FL (80-99) Mean Corpuscular Hemoglobin 28.4 PG (27.0-31.0) 27.8 PG (27.0-31.0) Mean Corpuscular Hemoglobin Concent 32.0 G/DL (32.0-36.0) 30.9 G/DL (32.0-36.0) Red Cell Distribution Width 14.3 % (11.6-14.8) 14.1 % (11.6-14.8) Platelet Count 141 K/UL (150-450) 137 K/UL (150-450) Mean Platelet Volume 6.8 FL (6.5-10.1) 7.3 FL (6.5-10.1) Neutrophils (%) (Auto) % (45.0-75.0) % (45.0-75.0) Lymphocytes (%) (Auto) % (20.0-45.0) % (20.0-45.0) Monocytes (%) (Auto) % (1.0-10.0) % (1.0-10.0) Eosinophils (%) (Auto) % (0.0-3.0) % (0.0-3.0) Basophils (%) (Auto) % (0.0-2.0) % (0.0-2.0) Differential Total Cells Counted 100 100 Neutrophils % (Manual) 91 % (45-75) 88 % (45-75) Lymphocytes % (Manual) 3 % (20-45) 5 % (20-45) Monocytes % (Manual) 6 % (1-10) 7 % (1-10) Eosinophils % (Manual) 0 % (0-3) 0 % (0-3) Basophils % (Manual) 0 % (0-2) 0 % (0-2) Band Neutrophils 0 % (0-8) 0 % (0-8) Platelet Estimate Decreased Decreased Platelet Morphology Normal Normal Red Blood Cell Morphology Normal Normal Sodium Level 140 MMOL/L (136-145) 142 MMOL/L (136-145) Potassium Level 3.8 MMOL/L (3.5-5.1) 3.8 MMOL/L (3.5-5.1) Chloride Level 104 MMOL/L (98-107) 103 MMOL/L (98-107) Carbon Dioxide Level 31 MMOL/L (21-32) 34 MMOL/L (21-32) Anion Gap 5 mmol/L (5-15) 5 mmol/L (5-15) Blood Urea Nitrogen 17 mg/dL (7-18) 19 mg/dL (7-18) Creatinine 0.6 MG/DL (0.55-1.30) 0.5 MG/DL (0.55-1.30) Estimat Glomerular Filtration Rate mL/min (>60) mL/min (>60) Glucose Level 125 MG/DL (74-106) 121 MG/DL (74-106) Calcium Level 8.9 MG/DL (8.5-10.1) 9.2 MG/DL (8.5-10.1) Total Bilirubin 0.3 MG/DL (0.2-1.0) 0.4 MG/DL (0.2-1.0) Aspartate Amino Transf (AST/SGOT) 8 U/L (15-37) 5 U/L (15-37) Alanine Aminotransferase (ALT/SGPT) 15 U/L (12-78) 17 U/L (12-78) Alkaline Phosphatase 82 U/L (46-116) 76 U/L (46-116) Total Protein 5.9 G/DL (6.4-8.2) 6.1 G/DL (6.4-8.2) Albumin 2.3 G/DL (3.4-5.0) 2.5 G/DL (3.4-5.0) Globulin 3.6 g/dL 3.6 g/dL Albumin/Globulin Ratio 0.6 (1.0-2.7) 0.7 (1.0-2.7) Arterial Blood pH 7.450 (7.350-7.450) Arterial Blood Partial Pressure CO2 48.4 mmHg (35.0-45.0) Arterial Blood Partial Pressure O2 86.4 mmHg (75.0-100.0) Arterial Blood HCO3 33.3 mmol/L (22.0-26.0) Arterial Blood Oxygen Saturation 97.0 % (95-100) Arterial Blood Base Excess 7.9 (-2-2) Tarun Test Positive Phosphorus Level 2.3 MG/DL (2.5-4.9) Magnesium Level 1.9 MG/DL (1.8-2.4) Pro-B-Type Natriuretic Peptide 449 pg/mL (0-125) Objective: GENERAL: sedated/withdrawn; off vent; on NC NECK: Supple. No adenopathy. No jugular venous distention. orally intubated LUNGS: Moderate breath sounds. no rhonchi. No wheezes. stable CARDIAC: S1 and S2. Regular rhythm without murmurs, rubs, or gallops. ABDOMEN: Soft, nontender, nondistended. no HSM; feeding tube in place EXTREMITIES: No cyanosis, clubbing; trace edema. NEUROLOGIC: Grossly nonfocal, sedated reviewed and examined Micro: Microbiology Date/Time Source Procedure Growth Status 02/17/18 18:17 Indwelling Cath Urine Culture - Preliminary NO GROWTH Resulted Subjective ROS Limited/Unobtainable: No Allergies: Coded Allergies: No Known Allergies (Unverified , 12/10/15) Objective Last 24 Hour Vital Signs Date Time Temp Pulse Resp B/P (MAP) Pulse Ox O2 Delivery O2 Flow Rate FiO2 03/10/18 11:55 97.5 106 20 122/63 (82) 100 03/10/18 09:00 106 106/64 03/10/18 09:00 Room Air 2.0 Room Air 03/10/18 08:00 97.3 106 19 106/64 (78) 95 03/10/18 07:39 98 Nasal Cannula 2.0 28 03/10/18 07:39 Nasal Cannula 2.0 28 03/10/18 05:04 99 19 98 Facial 30 03/10/18 04:00 98.5 98 20 128/71 (90) 100 03/10/18 02:55 95 24 97 Facial 30 03/10/18 01:35 94 18 98 Facial 30 03/10/18 00:00 98.9 104 20 139/79 (99) 100 03/09/18 23:15 99 17 98 Facial 30 03/09/18 21:00 Room Air 2.0 Room Air 03/09/18 20:00 98.8 101 20 145/82 (103) 100 03/09/18 19:04 Nasal Cannula 2.0 28 03/09/18 19:04 99 Nasal Cannula 2.0 28 03/09/18 16:00 98.2 98 19 134/61 (85) 100 Intake and Output 03/09/18 03/10/18 19:00 07:00 Intake Total 340 ml Balance 340 ml Intake Oral 240 ml Other 100 ml # Voids 1 3 # Bowel Movements 1 2 Current Medications Medications (Trade) Dose Ordered Sig/Isabella Route PRN Reason Start Time Stop Time Status Last Admin Dose Admin Acetaminophen (Tylenol) 650 mg Q6H PRN ORAL Mild Pain/Temp > 100.5 03/06/18 06:15 04/05/18 06:14 03/06/18 06:31 Bisacodyl (Dulcolax) 10 mg DAILYPRN PRN RECTAL Constipation 03/05/18 17:00 04/01/18 16:59 Clonidine HCl (Catapres Tab) 0.1 mg Q4H PRN ORAL SBP above 150 03/05/18 18:45 03/21/18 18:38 Diltiazem HCl (Cardizem CD) 240 mg DAILY ORAL 03/06/18 09:00 03/27/18 08:59 03/08/18 08:58 Diphenhydramine HCl (Benadryl) 25 mg Q6H PRN ORAL Itching 03/06/18 06:15 04/05/18 06:14 03/10/18 10:13 Pantoprazole (Protonix) 40 mg DAILY ORAL 03/06/18 09:00 03/29/18 08:59 03/10/18 10:13 Vitamin A/Vitamin D (A & D Oint) 1 applic EVERY 12 HOURS TOPIC 03/05/18 21:00 03/21/18 20:59 03/10/18 10:13 Ashvin Serrano MD Mar 10, 2018 12:13
--- NOTE | 2018-03-10 12:33 | Infectious Diseases Prog Note ---
Assessment/Plan Assessment/Plan A; Head lice treated COPD Pneumonia treated Anemia Hypercapnic respiratory failure resolving herpes zoster treated P: Observe off antibiotic Waiting for placement Subjective ROS Limited/Unobtainable: No Constitutional: Reports: no symptoms Respiratory: Reports: no symptoms Cardiovascular: Reports: no symptoms Gastrointestinal/Abdominal: Reports: no symptoms Genitourinary: Reports: no symptoms Allergies: Coded Allergies: No Known Allergies (Unverified , 12/10/15) Objective Vital Signs Last 24 Hour Vital Signs Date Time Temp Pulse Resp B/P (MAP) Pulse Ox O2 Delivery O2 Flow Rate FiO2 03/10/18 11:55 97.5 106 20 122/63 (82) 100 03/10/18 09:00 106 106/64 03/10/18 09:00 Room Air 2.0 Room Air 03/10/18 08:00 97.3 106 19 106/64 (78) 95 03/10/18 07:39 98 Nasal Cannula 2.0 28 03/10/18 07:39 Nasal Cannula 2.0 28 03/10/18 05:04 99 19 98 Facial 30 03/10/18 04:00 98.5 98 20 128/71 (90) 100 03/10/18 02:55 95 24 97 Facial 30 03/10/18 01:35 94 18 98 Facial 30 03/10/18 00:00 98.9 104 20 139/79 (99) 100 03/09/18 23:15 99 17 98 Facial 30 03/09/18 21:00 Room Air 2.0 Room Air 03/09/18 20:00 98.8 101 20 145/82 (103) 100 03/09/18 19:04 Nasal Cannula 2.0 28 03/09/18 19:04 99 Nasal Cannula 2.0 28 03/09/18 16:00 98.2 98 19 134/61 (85) 100 Height (Feet): 5 Height (Inches): 6.00 Weight (Pounds): 222 General Appearance: no acute distress HEENT: mucous membranes moist Respiratory/Chest: lungs clear Cardiovascular: tachycardia Abdomen: soft, non tender Extremities: no edema, other - bilatreal SCD Neurologic/Psychiatric: alert, responsive Current Medications Medications (Trade) Dose Ordered Sig/Isabella Route PRN Reason Start Time Stop Time Status Last Admin Dose Admin Acetaminophen (Tylenol) 650 mg Q6H PRN ORAL Mild Pain/Temp > 100.5 03/06/18 06:15 04/05/18 06:14 03/06/18 06:31 Bisacodyl (Dulcolax) 10 mg DAILYPRN PRN RECTAL Constipation 03/05/18 17:00 04/01/18 16:59 Clonidine HCl (Catapres Tab) 0.1 mg Q4H PRN ORAL SBP above 150 03/05/18 18:45 03/21/18 18:38 Diltiazem HCl (Cardizem CD) 240 mg DAILY ORAL 03/06/18 09:00 03/27/18 08:59 03/08/18 08:58 Diphenhydramine HCl (Benadryl) 25 mg Q6H PRN ORAL Itching 03/06/18 06:15 04/05/18 06:14 03/10/18 10:13 Pantoprazole (Protonix) 40 mg DAILY ORAL 03/06/18 09:00 03/29/18 08:59 03/10/18 10:13 Vitamin A/Vitamin D (A & D Oint) 1 applic EVERY 12 HOURS TOPIC 03/05/18 21:00 03/21/18 20:59 03/10/18 10:13 Amado Estrella MD Mar 10, 2018 12:33
[2018-03-10 16:00] VITALS: BP 116/61
[2018-03-10 20:00] VITALS: BP 126/66
[2018-03-11] VITALS (7 sets, daily range): BP systolic 108–118; BP diastolic 53–64
--- NOTE | 2018-03-11 07:19 | General Progress Note ---
Assessment/Plan Problem List: (1) COPD exacerbation ICD Codes: J44.1 - Chronic obstructive pulmonary disease with (acute) exacerbation SNOMED: 811000482 (2) HTN (hypertension) ICD Codes: I10 - Essential (primary) hypertension SNOMED: 98097879 (3) Hypoxia ICD Codes: R09.02 - Hypoxemia SNOMED: 905701408 (4) Elevated troponin ICD Codes: R74.8 - Abnormal levels of other serum enzymes SNOMED: 464448334, 793444747, 352709989 (5) Renal insufficiency ICD Codes: N28.9 - Disorder of kidney and ureter, unspecified SNOMED: 307383555, 440285884 (6) Respiratory failure ICD Codes: J96.90 - Respiratory failure, unspecified, unspecified whether with hypoxia or hypercapnia SNOMED: 335229286 Qualifiers: Qualified Codes: J96.02 - Acute respiratory failure with hypercapnia (7) Right lower lobe pneumonia ICD Codes: J18.1 - Lobar pneumonia, unspecified organism SNOMED: 963135807 Qualifiers: Qualified Codes: J18.1 - Lobar pneumonia, unspecified organism Assessment/Plan resp rx o2 bipap per pulm(try nocturnal) keep dry stable lice treated and resolved. 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 denies sob. compliant with bipap last night. Objective Last 24 Hour Vital Signs Date Time Temp Pulse Resp B/P (MAP) Pulse Ox O2 Delivery O2 Flow Rate FiO2 03/11/18 04:00 98.6 98 20 108/62 (77) 100 03/11/18 00:00 98.4 98 20 118/60 (79) 99 03/10/18 22:24 98 Bi-pap 30 03/10/18 22:23 Bi-pap 30 03/10/18 22:21 108 21 98 Facial 30 03/10/18 21:00 Room Air 2.0 Room Air 03/10/18 20:00 97.9 108 20 126/66 (86) 99 03/10/18 16:00 97.1 90 20 116/61 (79) 99 03/10/18 11:55 97.5 106 20 122/63 (82) 100 03/10/18 09:00 106 106/64 03/10/18 09:00 Room Air 2.0 Room Air 03/10/18 08:00 97.3 106 19 106/64 (78) 95 03/10/18 07:39 98 Nasal Cannula 2.0 28 03/10/18 07:39 Nasal Cannula 2.0 28 Intake and Output 03/10/18 03/11/18 19:00 07:00 Intake Total 240 ml 240 ml Balance 240 ml 240 ml Intake Oral 240 ml 240 ml # Voids 2 3 # Bowel Movements 3 2 Height (Feet): 5 Height (Inches): 6.00 Weight (Pounds): 208 Objective General Appearance: WD/WN, resting. on nasal cannula, opens eyes. alert. follows commands Neck: supple Cardiovascular: regular rhythm Respiratory/Chest: lungs mostly clear, few rhonchi Abdomen: normal bowel sounds, non tender, soft, no organomegaly Edema: no edema noted Arm (L), no edema noted Arm (R), no edema noted Leg (L), no edema noted Leg (R), no edema noted Pedal (L), no edema noted Pedal (R), no edema noted Generalized Manan Byrd MD Mar 11, 2018 07:19
[2018-03-11] MEDS: Vitamin A&D Oint 2oz Tube TOPIC SCH ×2 (08:26→22:21)
--- NOTE | 2018-03-11 08:34 | Critical Care Progress Note ---
Assessment/Plan Assessment/Plan IMPRESSION: Acute on chronic respiratory failure, COPD with acute exacerbation, chronic respiratory acidosis and associated hypoxemia, cardiomegaly, pleural effusion and pulmonary edema, protein-calorie malnutrition. PLAN exam overall stable respiratory care as is snf dc BIPAP QHS as tolerated Trilogy ordered- for SNF guarded nutrition DVT prophylaxis monitor acid base stable for dc at this time per pulmonary medications/laboratory data/nursing notes reviewed in detail note reviewed and edited care discussed with RN and RT Critical Care - Subjective Interval Events: lice treated no isolation co2 slightly worse bipap ordered trilogy orders signed EKG Rhythm: Sinus Rhythm I&O: Intake and Output 03/10/18 03/11/18 18:59 06:59 Intake Total 240 ml 240 ml Balance 240 ml 240 ml Intake Oral 240 ml 240 ml # Voids 2 3 # Bowel Movements 3 2 Critical Care - Objective ET-Tube: 7.5 ET Position: 24 Last 24 Hour Vital Signs Date Time Temp Pulse Resp B/P (MAP) Pulse Ox O2 Delivery O2 Flow Rate FiO2 03/11/18 07:43 Nasal Cannula 2.0 28 03/11/18 07:43 97 Nasal Cannula 2.0 28 03/11/18 04:00 98.6 98 20 108/62 (77) 100 03/11/18 00:00 98.4 98 20 118/60 (79) 99 03/10/18 22:24 98 Bi-pap 30 03/10/18 22:23 Bi-pap 30 03/10/18 22:21 108 21 98 Facial 30 03/10/18 21:00 Room Air 2.0 Room Air 03/10/18 20:00 97.9 108 20 126/66 (86) 99 03/10/18 16:00 97.1 90 20 116/61 (79) 99 03/10/18 11:55 97.5 106 20 122/63 (82) 100 03/10/18 09:00 106 106/64 03/10/18 09:00 Room Air 2.0 Room Air Labs: Labs Test 03/08/18 09:36 Arterial Blood pH 7.385 (7.350-7.450) Arterial Blood Partial Pressure CO2 61.4 mmHg (35.0-45.0) Arterial Blood Partial Pressure O2 54.5 mmHg (75.0-100.0) Arterial Blood HCO3 35.9 mmol/L (22.0-26.0) Arterial Blood Oxygen Saturation 88.0 % (95-100) Arterial Blood Base Excess 8.8 (-2-2) Tarun Test Positive Objective: GENERAL: awake; no distress; on oxygen no distress NECK: Supple. No adenopathy. No jugular venous distention. LUNGS: Moderate breath sounds. no rhonchi. No wheezes. stable CARDIAC: S1 and S2. Regular rhythm without murmurs, rubs, or gallops. ABDOMEN: Soft, nontender, nondistended. no HSM; EXTREMITIES: No cyanosis, clubbing; trace edema. NEUROLOGIC: Grossly nonfocal, awake alert reviewed and examined Accucheck: 140 Mk Billings MD Mar 11, 2018 08:34
[2018-03-11] MEDS: dilTIAZem HCl CD 240mg cap ORAL SCH (09:00)
--- NOTE | 2018-03-11 09:16 | Urology Progress Note ---
Assessment/Plan Assessment/Plan 1. Gross hematuria, improved. 2. Urinary retention hx. 3. Probable neurogenic bladder. 4. Pyuria. 5. Proteinuria. 6. Possible hemorrhagic cystitis. monitor clinically no active bleeding s/p abx off anticoagulation, ok to resume if needed monitor h/h cysto later consider CT Subjective Allergies: Coded Allergies: No Known Allergies (Unverified , 12/10/15) Subjective all noted, comfortable, voiding Objective Last 24 Hour Vital Signs Date Time Temp Pulse Resp B/P (MAP) Pulse Ox O2 Delivery O2 Flow Rate FiO2 03/11/18 07:43 Nasal Cannula 2.0 28 03/11/18 07:43 97 Nasal Cannula 2.0 28 03/11/18 04:00 98.6 98 20 108/62 (77) 100 03/11/18 00:00 98.4 98 20 118/60 (79) 99 03/10/18 22:24 98 Bi-pap 30 03/10/18 22:23 Bi-pap 30 03/10/18 22:21 108 21 98 Facial 30 03/10/18 21:00 Room Air 2.0 Room Air 03/10/18 20:00 97.9 108 20 126/66 (86) 99 03/10/18 16:00 97.1 90 20 116/61 (79) 99 03/10/18 11:55 97.5 106 20 122/63 (82) 100 Intake and Output 03/10/18 03/11/18 18:59 06:59 Intake Total 240 ml 240 ml Balance 240 ml 240 ml Intake Oral 240 ml 240 ml # Voids 2 3 # Bowel Movements 3 2 Microbiology Date/Time Source Procedure Growth Status 02/03/18 15:30 Blood Blood Culture - Final NO GROWTH AFTER 5 DAYS Complete 02/20/18 18:40 Stool Clostridium difficile Toxin Assay - Final Complete 02/20/18 12:50 Urine,Clean Catch Urine Culture - Final NO GROWTH AFTER 48 HOURS Complete 02/03/18 15:30 Rectal Mucosa - Final NO CARBAPENEM-RESISTANT ENTEROBACTERI... Complete Current Medications Medications (Trade) Dose Ordered Sig/Isabella Route PRN Reason Start Time Stop Time Status Last Admin Dose Admin Acetaminophen (Tylenol) 650 mg Q6H PRN ORAL Mild Pain/Temp > 100.5 03/06/18 06:15 04/05/18 06:14 03/06/18 06:31 Bisacodyl (Dulcolax) 10 mg DAILYPRN PRN RECTAL Constipation 03/05/18 17:00 04/01/18 16:59 Clonidine HCl (Catapres Tab) 0.1 mg Q4H PRN ORAL SBP above 150 03/05/18 18:45 03/21/18 18:38 Diltiazem HCl (Cardizem CD) 240 mg DAILY ORAL 03/06/18 09:00 03/27/18 08:59 03/08/18 08:58 Diphenhydramine HCl (Benadryl) 25 mg Q6H PRN ORAL Itching 03/06/18 06:15 04/05/18 06:14 03/11/18 08:36 Pantoprazole (Protonix) 40 mg DAILY ORAL 03/06/18 09:00 03/29/18 08:59 03/11/18 08:24 Vitamin A/Vitamin D (A & D Oint) 1 applic EVERY 12 HOURS TOPIC 03/05/18 21:00 03/21/18 20:59 03/11/18 08:26 Height (Feet): 5 Height (Inches): 6.00 Weight (Pounds): 208 Objective exam stable renal u/s (02/19) noted last CXR noted Spenser Marc MD Mar 11, 2018 09:16
--- NOTE | 2018-03-11 10:51 | Infectious Diseases Prog Note ---
Assessment/Plan Assessment/Plan antibiotics : none A 1. pneumonia s/p rx 2. head lice s/p rx 3. COPD 4. ? zoster s/p rx P 1. observe off antibiotics 2. dc planned 3. will sign off Thank you Subjective ROS Limited/Unobtainable: Yes Allergies: Coded Allergies: No Known Allergies (Unverified , 12/10/15) Objective Vital Signs Last 24 Hour Vital Signs Date Time Temp Pulse Resp B/P (MAP) Pulse Ox O2 Delivery O2 Flow Rate FiO2 03/11/18 09:00 96 110/64 03/11/18 09:00 Room Air 2.0 Room Air 03/11/18 08:00 98.5 96 20 110/64 (79) 99 03/11/18 07:43 Nasal Cannula 2.0 28 03/11/18 07:43 97 Nasal Cannula 2.0 28 03/11/18 04:00 98.6 98 20 108/62 (77) 100 03/11/18 00:00 98.4 98 20 118/60 (79) 99 03/10/18 22:24 98 Bi-pap 30 03/10/18 22:23 Bi-pap 30 03/10/18 22:21 108 21 98 Facial 30 03/10/18 21:00 Room Air 2.0 Room Air 03/10/18 20:00 97.9 108 20 126/66 (86) 99 03/10/18 16:00 97.1 90 20 116/61 (79) 99 03/10/18 11:55 97.5 106 20 122/63 (82) 100 Height (Feet): 5 Height (Inches): 6.00 Weight (Pounds): 208 Respiratory/Chest: lungs clear Cardiovascular: normal rate, regular rhythm, no gallop/murmur Abdomen: soft, non tender Extremities: no edema Current Medications Medications (Trade) Dose Ordered Sig/Isabella Route PRN Reason Start Time Stop Time Status Last Admin Dose Admin Acetaminophen (Tylenol) 650 mg Q6H PRN ORAL Mild Pain/Temp > 100.5 03/06/18 06:15 04/05/18 06:14 03/06/18 06:31 Bisacodyl (Dulcolax) 10 mg DAILYPRN PRN RECTAL Constipation 03/05/18 17:00 04/01/18 16:59 Clonidine HCl (Catapres Tab) 0.1 mg Q4H PRN ORAL SBP above 150 03/05/18 18:45 03/21/18 18:38 Diltiazem HCl (Cardizem CD) 240 mg DAILY ORAL 03/06/18 09:00 03/27/18 08:59 03/08/18 08:58 Diphenhydramine HCl (Benadryl) 25 mg Q6H PRN ORAL Itching 03/06/18 06:15 04/05/18 06:14 03/11/18 08:36 Pantoprazole (Protonix) 40 mg DAILY ORAL 03/06/18 09:00 03/29/18 08:59 03/11/18 08:24 Vitamin A/Vitamin D (A & D Oint) 1 applic EVERY 12 HOURS TOPIC 03/05/18 21:00 03/21/18 20:59 03/11/18 08:26 Radha Macias MD Mar 11, 2018 10:51
[2018-03-12] VITALS: BP 128/83
[2018-03-12 04:00] VITALS: BP 139/63
--- NOTE | 2018-03-12 06:22 | General Progress Note ---
Assessment/Plan Problem List: (1) COPD exacerbation ICD Codes: J44.1 - Chronic obstructive pulmonary disease with (acute) exacerbation SNOMED: 594501281 (2) HTN (hypertension) ICD Codes: I10 - Essential (primary) hypertension SNOMED: 85431542 (3) Hypoxia ICD Codes: R09.02 - Hypoxemia SNOMED: 963525130 (4) Elevated troponin ICD Codes: R74.8 - Abnormal levels of other serum enzymes SNOMED: 039207371, 315402848, 052821196 (5) Renal insufficiency ICD Codes: N28.9 - Disorder of kidney and ureter, unspecified SNOMED: 779030191, 673003213 (6) Respiratory failure ICD Codes: J96.90 - Respiratory failure, unspecified, unspecified whether with hypoxia or hypercapnia SNOMED: 306806324 Qualifiers: Qualified Codes: J96.02 - Acute respiratory failure with hypercapnia (7) Right lower lobe pneumonia ICD Codes: J18.1 - Lobar pneumonia, unspecified organism SNOMED: 440487018 Qualifiers: Qualified Codes: J18.1 - Lobar pneumonia, unspecified organism Status: stable, progressing Assessment/Plan resp rx o2 cont nocturnal bipap keep dry stable lice treated and resolved. no isolation needed await [facility] with [facility] Subjective ROS Limited/Unobtainable: No Constitutional: Reports: weakness HEENT: Reports: no symptoms Cardiovascular: Reports: no symptoms Respiratory: Reports: no symptoms Gastrointestinal/Abdominal: Reports: no symptoms Genitourinary: Reports: no symptoms Neurologic/Psychiatric: Reports: no symptoms Endocrine: Reports: no symptoms Hematologic/Lymphatic: Reports: no symptoms Allergies: Coded Allergies: No Known Allergies (Unverified , 12/10/15) All Systems: reviewed and negative except above Subjective no events. denies sob. compliant with bipap last night. [facility] accepted pt but is waiting for [facility] with insurance Objective Last 24 Hour Vital Signs Date Time Temp Pulse Resp B/P (MAP) Pulse Ox O2 Delivery O2 Flow Rate FiO2 03/12/18 00:00 97.9 105 20 128/83 (98) 100 03/11/18 23:15 106 20 100 03/11/18 21:00 Nasal Cannula 2.0 Room Air 03/11/18 20:18 100 Nasal Cannula 2.0 28 11/12/18 20:18 Nasal Cannula 2.0 28 03/11/18 20:00 98.2 101 20 111/62 (78) 99 03/11/18 15:46 97.6 90 18 109/53 (71) 97 03/11/18 15:45 97.6 90 18 109/53 (71) 97 03/11/18 12:00 98.4 109 20 115/58 (77) 95 03/11/18 09:00 96 110/64 03/11/18 09:00 Room Air 2.0 Room Air 03/11/18 08:00 98.5 96 20 110/64 (79) 99 03/11/18 07:43 Nasal Cannula 2.0 28 03/11/18 07:43 97 Nasal Cannula 2.0 28 Intake and Output 03/11/18 03/12/18 19:00 07:00 Intake Total 480 ml Balance 480 ml Intake Oral 480 ml # Voids 3 # Bowel Movements 2 1 Height (Feet): 5 Height (Inches): 6.00 Weight (Pounds): 208 Objective General Appearance: WD/WN, resting. on nasal cannula, opens eyes. alert. follows commands Neck: supple Cardiovascular: regular rhythm Respiratory/Chest: lungs mostly clear, few rhonchi Abdomen: normal bowel sounds, non tender, soft, no organomegaly Edema: no edema noted Arm (L), no edema noted Arm (R), no edema noted Leg (L), no edema noted Leg (R), no edema noted Pedal (L), no edema noted Pedal (R), no edema noted Generalized Manan Byrd MD Mar 12, 2018 06:22
--- NOTE | 2018-03-12 07:55 | Urology Progress Note ---
Assessment/Plan Assessment/Plan 1. Gross hematuria, improved. 2. Urinary retention hx. 3. Probable neurogenic bladder. 4. Pyuria. 5. Proteinuria. 6. Possible hemorrhagic cystitis. monitor clinically no active bleeding s/p abx off anticoagulation, ok to resume if needed monitor h/h cysto later consider CT check urine cx PRN Subjective Allergies: Coded Allergies: No Known Allergies (Unverified , 12/10/15) Subjective all noted, comfortable, voiding Objective Last 24 Hour Vital Signs Date Time Temp Pulse Resp B/P (MAP) Pulse Ox O2 Delivery O2 Flow Rate FiO2 03/12/18 04:00 98.6 103 20 139/63 (88) 100 03/12/18 00:00 97.9 105 20 128/83 (98) 100 03/11/18 23:15 106 20 100 03/11/18 21:00 Nasal Cannula 2.0 Room Air 03/11/18 20:18 100 Nasal Cannula 2.0 28 03/11/18 20:18 Nasal Cannula 2.0 28 03/11/18 20:00 98.2 101 20 111/62 (78) 99 03/11/18 15:46 97.6 90 18 109/53 (71) 97 03/11/18 15:45 97.6 90 18 109/53 (71) 97 03/11/18 12:00 98.4 109 20 115/58 (77) 95 03/11/18 09:00 96 110/64 03/11/18 09:00 Room Air 2.0 Room Air 03/11/18 08:00 98.5 96 20 110/64 (79) 99 Intake and Output 03/11/18 03/12/18 19:00 07:00 Intake Total 480 ml Output Total 400 ml Balance 480 ml -400 ml Intake Oral 480 ml Output Urine Total 400 ml # Voids 3 # Bowel Movements 2 1 Microbiology Date/Time Source Procedure Growth Status 02/03/18 15:30 Blood Blood Culture - Final NO GROWTH AFTER 5 DAYS Complete 02/20/18 18:40 Stool Clostridium difficile Toxin Assay - Final Complete 02/20/18 12:50 Urine,Clean Catch Urine Culture - Final NO GROWTH AFTER 48 HOURS Complete 02/03/18 15:30 Rectal Mucosa - Final NO CARBAPENEM-RESISTANT ENTEROBACTERI... Complete Current Medications Medications (Trade) Dose Ordered Sig/Isabella Route PRN Reason Start Time Stop Time Status Last Admin Dose Admin Acetaminophen (Tylenol) 650 mg Q6H PRN ORAL Mild Pain/Temp > 100.5 03/06/18 06:15 04/05/18 06:14 03/06/18 06:31 Bisacodyl (Dulcolax) 10 mg DAILYPRN PRN RECTAL Constipation 03/05/18 17:00 04/01/18 16:59 Clonidine HCl (Catapres Tab) 0.1 mg Q4H PRN ORAL SBP above 150 03/05/18 18:45 03/21/18 18:38 Diltiazem HCl (Cardizem CD) 240 mg DAILY ORAL 03/06/18 09:00 03/27/18 08:59 03/08/18 08:58 Diphenhydramine HCl (Benadryl) 25 mg Q6H PRN ORAL Itching 03/06/18 06:15 04/05/18 06:14 03/11/18 08:36 Pantoprazole (Protonix) 40 mg DAILY ORAL 03/06/18 09:00 03/29/18 08:59 03/11/18 08:24 Vitamin A/Vitamin D (A & D Oint) 1 applic EVERY 12 HOURS TOPIC 03/05/18 21:00 03/21/18 20:59 03/11/18 22:21 Height (Feet): 5 Height (Inches): 6.00 Weight (Pounds): 221 Objective exam stable renal u/s (02/19) noted last CXR noted Spenser Marc MD Mar 12, 2018 07:55
[2018-03-12 08:00] VITALS: BP 116/76
[2018-03-12] MEDS: dilTIAZem HCl CD 240mg cap ORAL SCH (09:35)
[2018-03-12] MEDS: Vitamin A&D Oint 2oz Tube TOPIC SCH ×2 (09:38→20:30)
--- NOTE | 2018-03-12 10:13 | Critical Care Progress Note ---
Assessment/Plan Assessment/Plan IMPRESSION: Acute on chronic respiratory failure, COPD with acute exacerbation, chronic respiratory acidosis and associated hypoxemia, cardiomegaly, pleural effusion and pulmonary edema, protein-calorie malnutrition. PLAN exam overall stable respiratory care as is snf dc BIPAP QHS as tolerated Trilogy ordered- for SNF guarded nutrition DVT prophylaxis monitor acid base stable for dc at this time per pulmonary medications/laboratory data/nursing notes reviewed in detail note reviewed and edited care discussed with RN and RT Critical Care - Subjective Condition: stable EKG Rhythm: Sinus Rhythm I&O: Intake and Output 03/11/18 03/12/18 18:59 06:59 Intake Total 480 ml Output Total 400 ml Balance 480 ml -400 ml Intake Oral 480 ml Output Urine Total 400 ml # Voids 3 # Bowel Movements 2 1 Critical Care - Objective ET-Tube: 7.5 ET Position: 24 Last 24 Hour Vital Signs Date Time Temp Pulse Resp B/P (MAP) Pulse Ox O2 Delivery O2 Flow Rate FiO2 03/12/18 09:35 120 114/74 03/12/18 09:23 Nasal Cannula 2.0 28 03/12/18 09:23 98 Nasal Cannula 2.0 28 03/12/18 09:00 Nasal Cannula 2.0 Room Air 03/12/18 09:00 Nasal Cannula 2.0 Room Air 03/12/18 08:00 98.3 106 20 116/76 (89) 100 03/12/18 04:00 98.6 103 20 139/63 (88) 100 03/12/18 00:00 97.9 105 20 128/83 (98) 100 03/11/18 23:15 106 20 100 03/11/18 21:00 Nasal Cannula 2.0 Room Air 03/11/18 20:18 100 Nasal Cannula 2.0 28 03/11/18 20:18 Nasal Cannula 2.0 28 03/11/18 20:00 98.2 101 20 111/62 (78) 99 03/11/18 15:46 97.6 90 18 109/53 (71) 97 03/11/18 15:45 97.6 90 18 109/53 (71) 97 03/11/18 12:00 98.4 109 20 115/58 (77) 95 Objective: GENERAL: awake; no distress; on oxygen no distress NECK: Supple. No adenopathy. No jugular venous distention. LUNGS: Moderate breath sounds. no rhonchi. No wheezes. stable CARDIAC: S1 and S2. Regular rhythm without murmurs, rubs, or gallops. ABDOMEN: Soft, nontender, nondistended. no HSM; EXTREMITIES: No cyanosis, clubbing; trace edema. NEUROLOGIC: Grossly nonfocal, awake alert reviewed and examined Accucheck: 140 Mk Billings MD Mar 12, 2018 10:13
[2018-03-12 12:00] VITALS: BP 155/83
[2018-03-12 16:00] VITALS: BP 117/58
[2018-03-12 20:00] VITALS: BP 125/63
[2018-03-13] VITALS: BP 129/65
--- NOTE | 2018-03-13 03:46 | Progress Note ---
DATE: 03/12/2018 SUBJECTIVE: The patient is compliant with BiPAP at night. She is more comfortable during the day. OBJECTIVE: VITAL SIGNS: Blood pressure 128/83, pulse 105, respiratory rate 20, and afebrile. LUNGS: Diminished breath sounds. CARDIAC: Regular rhythm. Rapid rate. Normal S1 and S2. ABDOMEN: Soft. EXTREMITIES: No edema. IMPRESSION: 1. Chronic obstructive pulmonary disease. 2. Secondary sinus tachycardia. 3. Paroxysmal bronchospasm. 4. Status post respiratory failure. 5. Healthcare-acquired pneumonia. 6. Acute on chronic diastolic congestive heart failure. PLAN: 1. Discharge planning. 2. Continue current regimen. 3. Monitor volume status and cardiorenal parameters. 4. Recheck electrolytes. 5. DVT prophylaxis until improved mobility. Ashvin Wu M.D. DR: CASEY JOB#: [id number] CC:
[2018-03-13 04:00] VITALS: BP 124/59
[2018-03-13 06:40] LABS: BASOPHILS % (AUTO) 1.5 % (0.0-2.0); EOSINOPHILS % (AUTO) 7.1 % (0.0-3.0); HEMOGLOBIN 11.8 G/DL (12.0-16.0); LYMPHOCYTES % (AUTO) 26.3 % (20.0-45.0); MEAN CORPUSCULAR VOLUME 93 FL (80-99); MONOCYTES % (AUTO) 13.6 % (1.0-10.0); NEUTROPHILS % (AUTO) 51.6 % (45.0-75.0); PLATELET COUNT 251 K/UL (150-450); RED BLOOD COUNT 4.18 M/UL (4.20-5.40); RED CELL DISTRIBUTION WIDTH 15.1 % (11.6-14.8); WHITE BLOOD COUNT 5.6 K/UL (4.8-10.8)
[2018-03-13 07:22] LABS: ANION GAP 4 mmol/L (5-15); CARBON DIOXIDE 38 MMOL/L (21-32); CHLORIDE 100 MMOL/L (98-107); POTASSIUM 3.8 MMOL/L (3.5-5.1); SODIUM 141 MMOL/L (136-145)
--- NOTE | 2018-03-13 07:41 | Urology Progress Note ---
Assessment/Plan Assessment/Plan 1. Gross hematuria, improved. 2. Urinary retention hx. 3. Probable neurogenic bladder. 4. Pyuria. 5. Proteinuria. 6. Possible hemorrhagic cystitis. monitor clinically no active bleeding s/p abx off anticoagulation, ok to resume if needed monitor h/h cysto later consider CT check urine cx PRN Subjective Allergies: Coded Allergies: No Known Allergies (Unverified , 12/10/15) Subjective all noted, comfortable, voiding Objective Last 24 Hour Vital Signs Date Time Temp Pulse Resp B/P (MAP) Pulse Ox O2 Delivery O2 Flow Rate FiO2 03/13/18 04:00 97.0 102 19 124/59 (80) 99 03/13/18 00:00 98.1 105 20 129/65 (86) 97 03/12/18 23:30 103 18 100 Facial 30 03/12/18 21:00 Nasal Cannula 2.0 Room Air 03/12/18 20:00 97.9 107 20 125/63 (83) 100 03/12/18 19:50 98 Nasal Cannula 2.0 28 03/12/18 19:50 Nasal Cannula 2.0 28 03/12/18 16:00 99.1 72 20 117/58 (77) 95 03/12/18 12:00 98.4 70 20 155/83 (107) 03/12/18 09:35 120 114/74 03/12/18 09:23 Nasal Cannula 2.0 28 03/12/18 09:23 98 Nasal Cannula 2.0 28 03/12/18 09:00 Nasal Cannula 2.0 Room Air 03/12/18 09:00 Nasal Cannula 2.0 Room Air 03/12/18 08:00 98.3 106 20 116/76 (89) 100 Intake and Output 03/12/18 03/13/18 19:00 07:00 Intake Total 330 ml Balance 330 ml Intake Oral 330 ml # Voids 3 2 # Bowel Movements 2 1 Microbiology Date/Time Source Procedure Growth Status 02/03/18 15:30 Blood Blood Culture - Final NO GROWTH AFTER 5 DAYS Complete 02/20/18 18:40 Stool Clostridium difficile Toxin Assay - Final Complete 02/20/18 12:50 Urine,Clean Catch Urine Culture - Final NO GROWTH AFTER 48 HOURS Complete 02/03/18 15:30 Rectal Mucosa - Final NO CARBAPENEM-RESISTANT ENTEROBACTERI... Complete Current Medications Medications (Trade) Dose Ordered Sig/Isabella Route PRN Reason Start Time Stop Time Status Last Admin Dose Admin Acetaminophen (Tylenol) 650 mg Q6H PRN ORAL Mild Pain/Temp > 100.5 03/06/18 06:15 04/05/18 06:14 03/06/18 06:31 Bisacodyl (Dulcolax) 10 mg DAILYPRN PRN RECTAL Constipation 03/05/18 17:00 04/01/18 16:59 Clonidine HCl (Catapres Tab) 0.1 mg Q4H PRN ORAL SBP above 150 03/05/18 18:45 03/21/18 18:38 Diltiazem HCl (Cardizem CD) 240 mg DAILY ORAL 03/06/18 09:00 03/27/18 08:59 03/12/18 09:35 Diphenhydramine HCl (Benadryl) 25 mg Q6H PRN ORAL Itching 03/06/18 06:15 04/05/18 06:14 03/11/18 08:36 Pantoprazole (Protonix) 40 mg DAILY ORAL 03/06/18 09:00 03/29/18 08:59 03/12/18 09:36 Vitamin A/Vitamin D (A & D Oint) 1 applic EVERY 12 HOURS TOPIC 03/05/18 21:00 03/21/18 20:59 03/12/18 20:30 Laboratory Tests 03/13/18 05:40: White Blood Count 5.6, Red Blood Count 4.18L, Hemoglobin 11.8L, Hematocrit 39.0 , Mean Corpuscular Volume 93, Mean Corpuscular Hemoglobin 28.1, Mean Corpuscular Hemoglobin Concent 30.2L, Red Cell Distribution Width 15.1H, Platelet Count 251, Mean Platelet Volume 6.2L, Neutrophils (%) (Auto) 51.6, Lymphocytes (%) (Auto) 26.3, Monocytes (%) (Auto) 13.6H, Eosinophils (%) (Auto) 7.1H, Basophils (%) (Auto) 1.5, Sodium Level 141, Potassium Level 3.8, Chloride Level 100, Carbon Dioxide Level 38H, Anion Gap 4L, Blood Urea Nitrogen [Pending] , Creatinine [Pending], Estimat Glomerular Filtration Rate [Pending], Glucose Level [Pending], Calcium Level [Pending], Magnesium Level [Pending], Total Bilirubin [Pending], Aspartate Amino Transf (AST/SGOT) [Pending], Alanine Aminotransferase (ALT/SGPT) [Pending], Alkaline Phosphatase [Pending], Pro-B- Type Natriuretic Peptide [Pending], Total Protein [Pending], Albumin [Pending], Globulin [Pending] Height (Feet): 5 Height (Inches): 6.00 Weight (Pounds): 220 Objective exam stable renal u/s (02/19) noted last CXR noted Spenser Marc MD Mar 13, 2018 07:41
[2018-03-13 08:00] VITALS: BP 132/75
[2018-03-13 08:02] LABS: ALANINE AMINOTRANSFERASE 12 U/L (12-78); ALBUMIN 2.4 G/DL (3.4-5.0); ALBUMIN/GLOBULIN RATIO 0.5 (1.0-2.7); ALKALINE PHOSPHATASE 88 U/L (46-116); ASPARTATE AMINO TRANSFERASE 10 U/L (15-37); BILIRUBIN,TOTAL 0.3 MG/DL (0.2-1.0); BLOOD UREA NITROGEN 9 mg/dL (7-18); CALCIUM 9.4 MG/DL (8.5-10.1); CREATININE 0.7 MG/DL (0.55-1.30)
--- NOTE | 2018-03-13 08:15 | General Progress Note ---
Assessment/Plan Problem List: (1) COPD exacerbation ICD Codes: J44.1 - Chronic obstructive pulmonary disease with (acute) exacerbation SNOMED: 643886680 (2) HTN (hypertension) ICD Codes: I10 - Essential (primary) hypertension SNOMED: 11063508 (3) Hypoxia ICD Codes: R09.02 - Hypoxemia SNOMED: 563440457 (4) Elevated troponin ICD Codes: R74.8 - Abnormal levels of other serum enzymes SNOMED: 825084451, 425176272, 135046991 (5) Renal insufficiency ICD Codes: N28.9 - Disorder of kidney and ureter, unspecified SNOMED: 455160300, 724991012 (6) Respiratory failure ICD Codes: J96.90 - Respiratory failure, unspecified, unspecified whether with hypoxia or hypercapnia SNOMED: 914839086 Qualifiers: Qualified Codes: J96.02 - Acute respiratory failure with hypercapnia (7) Right lower lobe pneumonia ICD Codes: J18.1 - Lobar pneumonia, unspecified organism SNOMED: 297241282 Qualifiers: Qualified Codes: J18.1 - Lobar pneumonia, unspecified organism Status: stable Assessment/Plan resp rx o2 cont nocturnal bipap keep dry stable lice treated and resolved. no isolation needed await SC[facility]LETT with [facility]YST[facility] lott Subjective ROS Limited/Unobtainable: No Constitutional: Reports: malaise, weakness HEENT: Reports: no symptoms Cardiovascular: Reports: no symptoms Respiratory: Reports: no symptoms Gastrointestinal/Abdominal: Reports: no symptoms Genitourinary: Reports: no symptoms Neurologic/Psychiatric: Reports: no symptoms Endocrine: Reports: no symptoms Hematologic/Lymphatic: Reports: no symptoms Allergies: Coded Allergies: No Known Allergies (Unverified , 12/10/15) All Systems: reviewed and negative except above Subjective no events. denies sob. compliant with bipap last night. [facility] lott accepted pt but is waiting for SCARLETT with insurance. case management noted. Objective Last 24 Hour Vital Signs Date Time Temp Pulse Resp B/P (MAP) Pulse Ox O2 Delivery O2 Flow Rate FiO2 03/13/18 04:00 97.0 102 19 124/59 (80) 99 03/13/18 00:00 98.1 105 20 129/65 (86) 97 03/12/18 23:30 103 18 100 Facial 30 03/12/18 21:00 Nasal Cannula 2.0 Room Air 03/12/18 20:00 97.9 107 20 125/63 (83) 100 03/12/18 19:50 98 Nasal Cannula 2.0 28 03/12/18 19:50 Nasal Cannula 2.0 28 03/12/18 16:00 99.1 72 20 117/58 (77) 95 03/12/18 12:00 98.4 70 20 155/83 (107) 03/12/18 09:35 120 114/74 03/12/18 09:23 Nasal Cannula 2.0 28 03/12/18 09:23 98 Nasal Cannula 2.0 28 03/12/18 09:00 Nasal Cannula 2.0 Room Air 03/12/18 09:00 Nasal Cannula 2.0 Room Air Intake and Output 03/12/18 03/13/18 19:00 07:00 Intake Total 330 ml Balance 330 ml Intake Oral 330 ml # Voids 3 2 # Bowel Movements 2 1 Laboratory Tests 03/13/18 05:40: White Blood Count 5.6, Red Blood Count 4.18L, Hemoglobin 11.8L, Hematocrit 39.0 , Mean Corpuscular Volume 93, Mean Corpuscular Hemoglobin 28.1, Mean Corpuscular Hemoglobin Concent 30.2L, Red Cell Distribution Width 15.1H, Platelet Count 251, Mean Platelet Volume 6.2L, Neutrophils (%) (Auto) 51.6, Lymphocytes (%) (Auto) 26.3, Monocytes (%) (Auto) 13.6H, Eosinophils (%) (Auto) 7.1H, Basophils (%) (Auto) 1.5, Sodium Level 141, Potassium Level 3.8, Chloride Level 100, Carbon Dioxide Level 38H, Anion Gap 4L, Blood Urea Nitrogen 9, Creatinine 0.7, Estimat Glomerular Filtration Rate , Glucose Level 99, Calcium Level 9.4, Magnesium Level 1.7L, Total Bilirubin 0.3, Aspartate Amino Transf ( AST/SGOT) 10L, Alanine Aminotransferase (ALT/SGPT) 12, Alkaline Phosphatase 88, Pro-B-Type Natriuretic Peptide 60, Total Protein 6.8, Albumin 2.4L, Globulin 4.4 , Albumin/Globulin Ratio 0.5L Height (Feet): 5 Height (Inches): 6.00 Weight (Pounds): 220 Objective General Appearance: WD/WN, resting. on nasal cannula, opens eyes. alert. follows commands Neck: supple Cardiovascular: regular rhythm Respiratory/Chest: lungs mostly clear, few rhonchi Abdomen: normal bowel sounds, non tender, soft, no organomegaly Edema: no edema noted Arm (L), no edema noted Arm (R), no edema noted Leg (L), no edema noted Leg (R), no edema noted Pedal (L), no edema noted Pedal (R), no edema noted Generalized Manan Byrd MD Mar 13, 2018 08:15
[2018-03-13] MEDS: dilTIAZem HCl CD 240mg cap ORAL SCH (08:56)
[2018-03-13] MEDS: Vitamin A&D Oint 2oz Tube TOPIC SCH ×2 (09:02→21:48)
--- NOTE | 2018-03-13 10:15 | Critical Care Progress Note ---
Assessment/Plan Assessment/Plan IMPRESSION: Acute on chronic respiratory failure, COPD with acute exacerbation, chronic respiratory acidosis and associated hypoxemia, cardiomegaly, pleural effusion and pulmonary edema, protein-calorie malnutrition. PLAN exam overall noted and without real change respiratory care as is snf dc BIPAP QHS as tolerated Trilogy ordered- for SNF guarded nutrition DVT prophylaxis monitor acid base and repeat ABG stable for dc at this time per pulmonary medications/laboratory data/nursing notes reviewed in detail note reviewed and edited care discussed with RN and RT Critical Care - Subjective Interval Events: care noted no recent ABG Condition: stable EKG Rhythm: Sinus Rhythm I&O: Intake and Output 03/12/18 03/13/18 19:00 07:00 Intake Total 330 ml Balance 330 ml Intake Oral 330 ml # Voids 3 2 # Bowel Movements 2 1 Critical Care - Objective ET-Tube: 7.5 ET Position: 24 Last 24 Hour Vital Signs Date Time Temp Pulse Resp B/P (MAP) Pulse Ox O2 Delivery O2 Flow Rate FiO2 03/13/18 08:56 115 123/63 03/13/18 08:00 98.0 106 20 132/75 (94) 99 03/13/18 04:00 97.0 102 19 124/59 (80) 99 03/13/18 00:00 98.1 105 20 129/65 (86) 97 03/12/18 23:30 103 18 100 Facial 30 03/12/18 21:00 Nasal Cannula 2.0 Room Air 03/12/18 20:00 97.9 107 20 125/63 (83) 100 03/12/18 19:50 98 Nasal Cannula 2.0 28 03/12/18 19:50 Nasal Cannula 2.0 28 03/12/18 16:00 99.1 72 20 117/58 (77) 95 03/12/18 12:00 98.4 70 20 155/83 (107) Labs: Labs Test 03/13/18 05:40 White Blood Count 5.6 K/UL (4.8-10.8) Red Blood Count 4.18 M/UL (4.20-5.40) Hemoglobin 11.8 G/DL (12.0-16.0) Hematocrit 39.0 % (37.0-47.0) Mean Corpuscular Volume 93 FL (80-99) Mean Corpuscular Hemoglobin 28.1 PG (27.0-31.0) Mean Corpuscular Hemoglobin Concent 30.2 G/DL (32.0-36.0) Red Cell Distribution Width 15.1 % (11.6-14.8) Platelet Count 251 K/UL (150-450) Mean Platelet Volume 6.2 FL (6.5-10.1) Neutrophils (%) (Auto) 51.6 % (45.0-75.0) Lymphocytes (%) (Auto) 26.3 % (20.0-45.0) Monocytes (%) (Auto) 13.6 % (1.0-10.0) Eosinophils (%) (Auto) 7.1 % (0.0-3.0) Basophils (%) (Auto) 1.5 % (0.0-2.0) Sodium Level 141 MMOL/L (136-145) Potassium Level 3.8 MMOL/L (3.5-5.1) Chloride Level 100 MMOL/L (98-107) Carbon Dioxide Level 38 MMOL/L (21-32) Anion Gap 4 mmol/L (5-15) Blood Urea Nitrogen 9 mg/dL (7-18) Creatinine 0.7 MG/DL (0.55-1.30) Estimat Glomerular Filtration Rate mL/min (>60) Glucose Level 99 MG/DL (74-106) Calcium Level 9.4 MG/DL (8.5-10.1) Magnesium Level 1.7 MG/DL (1.8-2.4) Total Bilirubin 0.3 MG/DL (0.2-1.0) Aspartate Amino Transf (AST/SGOT) 10 U/L (15-37) Alanine Aminotransferase (ALT/SGPT) 12 U/L (12-78) Alkaline Phosphatase 88 U/L (46-116) Pro-B-Type Natriuretic Peptide 60 pg/mL (0-125) Total Protein 6.8 G/DL (6.4-8.2) Albumin 2.4 G/DL (3.4-5.0) Globulin 4.4 g/dL Albumin/Globulin Ratio 0.5 (1.0-2.7) Objective: GENERAL: awake; no distress; on oxygen no distress NECK: Supple. No adenopathy. No jugular venous distention. LUNGS: Moderate breath sounds. no rhonchi. No wheezes. stable CARDIAC: S1 and S2. Regular rhythm without murmurs, rubs, or gallops. ABDOMEN: Soft, nontender, nondistended. no HSM; EXTREMITIES: No cyanosis, clubbing; trace edema. NEUROLOGIC: Grossly nonfocal, awake alert reviewed and examined Accucheck: 140 kM Billings MD Mar 13, 2018 10:14
[2018-03-13 12:00] VITALS: BP 117/58
[2018-03-13 16:00] VITALS: BP 125/64
[2018-03-13 20:00] VITALS: BP 122/67
--- NOTE | 2018-03-13 22:00 | Progress Note ---
DATE: 03/13/2018 CARDIOLOGY PROGRESS NOTE SUBJECTIVE: The patient is without new complaints. She remains on BiPAP support at night. OBJECTIVE: VITAL SIGNS: Blood pressure 117/58, pulse 107, respiratory rate 21, afebrile. LUNGS: Diminished breath sounds. HEART: Regular rhythm. Rapid rate. Normal S1 and S2. ABDOMEN: Soft. EXTREMITIES: No edema. LABORATORY DATA: White count 5.6, hemoglobin 11.8. ABG, pH 7.39, 75, Sodium 141, potassium 3.8, bicarb 38, BUN 9, creatinine 0.7, magnesium 1.7. Albumin 2.4. IMPRESSION: 1. Compensated respiratory acidosis, acute on chronic. 2. Compensatory metabolic alkalosis. 3. Chronic diastolic congestive heart failure with natriuretic peptide essay now normal at 60 4. Secondary sinus tachycardia due to beta agonist therapy. 5. Severe protein-calorie malnutrition. 6. Hypomagnesemia. PLAN: 1. Respiratory hygiene. 2. Maintain adequate hydration, no diuretics. 3. IV magnesium. 4. Limit beta-agonist therapy. 5. Continue diltiazem. 6. Discharge planning. Ashvin Wu M.D. DR: Jazlyn JOB#: [id number] CC:
[2018-03-14] VITALS: BP 125/69
[2018-03-14 03:58] VITALS: BP 140/69
--- NOTE | 2018-03-14 07:36 | Urology Progress Note ---
Assessment/Plan Assessment/Plan 1. Gross hematuria, improved. 2. Urinary retention hx. 3. Probable neurogenic bladder. 4. Pyuria. 5. Proteinuria. 6. Possible hemorrhagic cystitis. monitor clinically no active bleeding s/p abx off anticoagulation, ok to resume if needed monitor h/h cysto later consider CT check urine cx PRN Subjective Allergies: Coded Allergies: No Known Allergies (Unverified , 12/10/15) Subjective all noted, comfortable, voiding Objective Last 24 Hour Vital Signs Date Time Temp Pulse Resp B/P (MAP) Pulse Ox O2 Delivery O2 Flow Rate FiO2 03/14/18 05:34 103 22 99 Facial 30 03/14/18 03:58 97.6 100 20 140/69 (92) 94 03/14/18 03:24 101 18 99 Facial 30 03/14/18 01:27 103 19 98 Facial 30 03/14/18 00:00 98.6 98 22 125/69 (87) 99 03/13/18 22:29 100 22 99 Facial 30 03/13/18 21:00 Nasal Cannula 2.0 Nasal Cannula 2.0 03/13/18 20:00 98.9 101 20 122/67 (85) 93 03/13/18 19:24 Nasal Cannula 2.0 28 03/13/18 19:24 97 Nasal Cannula 2.0 28 03/13/18 16:00 97.7 94 18 125/64 (84) 98 03/13/18 14:58 102 16 98 Facial 30 03/13/18 13:15 99 19 100 Facial 30 03/13/18 12:00 98.7 107 21 117/58 (77) 97 03/13/18 10:50 101 18 100 Facial 30 03/13/18 09:42 Nasal Cannula 2.0 28 03/13/18 09:41 100 Nasal Cannula 2.0 28 03/13/18 09:00 Nasal Cannula 2.0 Room Air 03/13/18 08:56 115 123/63 03/13/18 08:00 98.0 106 20 132/75 (94) 99 Intake and Output 03/13/18 03/14/18 19:00 07:00 Intake Total 500 ml 680 ml Balance 500 ml 680 ml Intake Oral 480 ml IV Total 200 ml Other 500 ml # Voids 3 4 # Bowel Movements 2 Microbiology Date/Time Source Procedure Growth Status 02/03/18 15:30 Blood Blood Culture - Final NO GROWTH AFTER 5 DAYS Complete 02/20/18 18:40 Stool Clostridium difficile Toxin Assay - Final Complete 02/20/18 12:50 Urine,Clean Catch Urine Culture - Final NO GROWTH AFTER 48 HOURS Complete 02/03/18 15:30 Rectal Mucosa - Final NO CARBAPENEM-RESISTANT ENTEROBACTERI... Complete Current Medications Medications (Trade) Dose Ordered Sig/Isabella Route PRN Reason Start Time Stop Time Status Last Admin Dose Admin Acetaminophen (Tylenol) 650 mg Q6H PRN ORAL Mild Pain/Temp > 100.5 03/06/18 06:15 04/05/18 06:14 03/06/18 06:31 Bisacodyl (Dulcolax) 10 mg DAILYPRN PRN RECTAL Constipation 03/05/18 17:00 04/01/18 16:59 Clonidine HCl (Catapres Tab) 0.1 mg Q4H PRN ORAL SBP above 150 03/05/18 18:45 03/21/18 18:38 Diltiazem HCl (Cardizem CD) 240 mg DAILY ORAL 03/06/18 09:00 03/27/18 08:59 03/13/18 08:56 Diphenhydramine HCl (Benadryl) 25 mg Q6H PRN ORAL Itching 03/06/18 06:15 04/05/18 06:14 03/11/18 08:36 Pantoprazole (Protonix) 40 mg DAILY ORAL 03/06/18 09:00 03/29/18 08:59 03/13/18 09:01 Vitamin A/Vitamin D (A & D Oint) 1 applic EVERY 12 HOURS TOPIC 03/05/18 21:00 03/21/18 20:59 03/13/18 21:48 Laboratory Tests 03/13/18 10:38: Arterial Blood pH 7.280L, Arterial Blood Partial Pressure CO2 86.3*H, Arterial Blood Partial Pressure O2 130.1H, Arterial Blood HCO3 40.5*H, Arterial Blood Oxygen Saturation 98.6, Arterial Blood Base Excess 10.7*H, Tarun Test Positive 03/13/18 15:00: Arterial Blood pH 7.390, Arterial Blood Partial Pressure CO2 75.5*H, Arterial Blood Partial Pressure O2 89.7, Arterial Blood HCO3 40.7*H, Arterial Blood Oxygen Saturation 96.8, Arterial Blood Base Excess 12.1*H, Tarun Test Positive Height (Feet): 5 Height (Inches): 6.00 Weight (Pounds): 224 Objective exam stable renal u/s (02/19) noted last CXR noted Spenser Marc MD Mar 14, 2018 07:36
[2018-03-14 08:00] VITALS: BP 128/67
--- NOTE | 2018-03-14 08:11 | General Progress Note ---
Assessment/Plan Problem List: (1) COPD exacerbation ICD Codes: J44.1 - Chronic obstructive pulmonary disease with (acute) exacerbation SNOMED: 257809132 (2) HTN (hypertension) ICD Codes: I10 - Essential (primary) hypertension SNOMED: 16249012 (3) Hypoxia ICD Codes: R09.02 - Hypoxemia SNOMED: 536002376 (4) Elevated troponin ICD Codes: R74.8 - Abnormal levels of other serum enzymes SNOMED: 784676553, 993766858, 392649457 (5) Renal insufficiency ICD Codes: N28.9 - Disorder of kidney and ureter, unspecified SNOMED: 133860741, 036208290 (6) Respiratory failure ICD Codes: J96.90 - Respiratory failure, unspecified, unspecified whether with hypoxia or hypercapnia SNOMED: 469187399 Qualifiers: Qualified Codes: J96.02 - Acute respiratory failure with hypercapnia (7) Right lower lobe pneumonia ICD Codes: J18.1 - Lobar pneumonia, unspecified organism SNOMED: 096710986 Qualifiers: Qualified Codes: J18.1 - Lobar pneumonia, unspecified organism Assessment/Plan resp rx o2 cont nocturnal bipap keep dry stable lice treated and resolved. no isolation needed await SCARLETT with CV sunni lott Subjective ROS Limited/Unobtainable: No Constitutional: Reports: malaise, weakness HEENT: Reports: no symptoms Cardiovascular: Reports: no symptoms Respiratory: Reports: no symptoms Gastrointestinal/Abdominal: Reports: no symptoms Genitourinary: Reports: no symptoms Neurologic/Psychiatric: Reports: no symptoms Endocrine: Reports: no symptoms Hematologic/Lymphatic: Reports: no symptoms Allergies: Coded Allergies: No Known Allergies (Unverified , 12/10/15) All Systems: reviewed and negative except above Subjective no events. denies sob. compliant with bipap last night. [facility] accepted pt but is waiting for SCARLETT with insurance. case management noted. Objective Last 24 Hour Vital Signs Date Time Temp Pulse Resp B/P (MAP) Pulse Ox O2 Delivery O2 Flow Rate FiO2 03/14/18 05:34 103 22 99 Facial 30 03/14/18 03:58 97.6 100 20 140/69 (92) 94 03/14/18 03:24 101 18 99 Facial 30 03/14/18 01:27 103 19 98 Facial 30 03/14/18 00:00 98.6 98 22 125/69 (87) 99 03/13/18 22:29 100 22 99 Facial 30 03/13/18 21:00 Nasal Cannula 2.0 Nasal Cannula 2.0 03/13/18 20:00 98.9 101 20 122/67 (85) 93 03/13/18 19:24 Nasal Cannula 2.0 28 03/13/18 19:24 97 Nasal Cannula 2.0 28 03/13/18 16:00 97.7 94 18 125/64 (84) 98 03/13/18 14:58 102 16 98 Facial 30 03/13/18 13:15 99 19 100 Facial 30 03/13/18 12:00 98.7 107 21 117/58 (77) 97 03/13/18 10:50 101 18 100 Facial 30 03/13/18 09:42 Nasal Cannula 2.0 28 03/13/18 09:41 100 Nasal Cannula 2.0 28 03/13/18 09:00 Nasal Cannula 2.0 Room Air 03/13/18 08:56 115 123/63 Intake and Output 03/13/18 03/14/18 19:00 07:00 Intake Total 500 ml 680 ml Balance 500 ml 680 ml Intake Oral 480 ml IV Total 200 ml Other 500 ml # Voids 3 4 # Bowel Movements 2 Laboratory Tests 03/13/18 10:38: Arterial Blood pH 7.280L, Arterial Blood Partial Pressure CO2 86.3*H, Arterial Blood Partial Pressure O2 130.1H, Arterial Blood HCO3 40.5*H, Arterial Blood Oxygen Saturation 98.6, Arterial Blood Base Excess 10.7*H, Tarun Test Positive 03/13/18 15:00: Arterial Blood pH 7.390, Arterial Blood Partial Pressure CO2 75.5*H, Arterial Blood Partial Pressure O2 89.7, Arterial Blood HCO3 40.7*H, Arterial Blood Oxygen Saturation 96.8, Arterial Blood Base Excess 12.1*H, Tarun Test Positive Height (Feet): 5 Height (Inches): 6.00 Weight (Pounds): 224 Objective General Appearance: WD/WN, resting. on nasal cannula, opens eyes. alert. follows commands Neck: supple Cardiovascular: regular rhythm Respiratory/Chest: lungs mostly clear, few rhonchi Abdomen: normal bowel sounds, non tender, soft, no organomegaly Edema: no edema noted Arm (L), no edema noted Arm (R), no edema noted Leg (L), no edema noted Leg (R), no edema noted Pedal (L), no edema noted Pedal (R), no edema noted Generalized Manan Byrd MD Mar 14, 2018 08:11
--- NOTE | 2018-03-14 08:33 | Critical Care Progress Note ---
Assessment/Plan Assessment/Plan IMPRESSION: Acute on chronic respiratory failure, COPD with acute exacerbation, chronic respiratory acidosis and associated hypoxemia, cardiomegaly, pleural effusion and pulmonary edema, protein-calorie malnutrition. PLAN exam reviewed respiratory care as is snf dc once stable BIPAP continuous for now with Co2 acute retention Trilogy ordered- for SNF ordered guarded nutrition DVT prophylaxis monitor acid base and repeat ABG this am hold dc with acute retention medications/laboratory data/nursing notes reviewed in detail note reviewed and edited care discussed with RN and RT Critical Care - Subjective ROS Limited/Unobtainable: Yes Condition: unchanged EKG Rhythm: Sinus Rhythm I&O: Intake and Output 03/13/18 03/14/18 19:00 07:00 Intake Total 500 ml 680 ml Balance 500 ml 680 ml Intake Oral 480 ml IV Total 200 ml Other 500 ml # Voids 3 4 # Bowel Movements 2 Critical Care - Objective ET-Tube: 7.5 ET Position: 24 Last 24 Hour Vital Signs Date Time Temp Pulse Resp B/P (MAP) Pulse Ox O2 Delivery O2 Flow Rate FiO2 03/14/18 05:34 103 22 99 Facial 30 03/14/18 03:58 97.6 100 20 140/69 (92) 94 03/14/18 03:24 101 18 99 Facial 30 03/14/18 01:27 103 19 98 Facial 30 03/14/18 00:00 98.6 98 22 125/69 (87) 99 03/13/18 22:29 100 22 99 Facial 30 03/13/18 21:00 Nasal Cannula 2.0 Nasal Cannula 2.0 03/13/18 20:00 98.9 101 20 122/67 (85) 93 03/13/18 19:24 Nasal Cannula 2.0 28 03/13/18 19:24 97 Nasal Cannula 2.0 28 03/13/18 16:00 97.7 94 18 125/64 (84) 98 03/13/18 14:58 102 16 98 Facial 30 03/13/18 13:15 99 19 100 Facial 30 03/13/18 12:00 98.7 107 21 117/58 (77) 97 03/13/18 10:50 101 18 100 Facial 30 03/13/18 09:42 Nasal Cannula 2.0 28 03/13/18 09:41 100 Nasal Cannula 2.0 28 03/13/18 09:00 Nasal Cannula 2.0 Room Air 03/13/18 08:56 115 123/63 Labs: Labs Test 03/13/18 05:40 03/13/18 10:38 03/13/18 15:00 White Blood Count 5.6 K/UL (4.8-10.8) Red Blood Count 4.18 M/UL (4.20-5.40) Hemoglobin 11.8 G/DL (12.0-16.0) Hematocrit 39.0 % (37.0-47.0) Mean Corpuscular Volume 93 FL (80-99) Mean Corpuscular Hemoglobin 28.1 PG (27.0-31.0) Mean Corpuscular Hemoglobin Concent 30.2 G/DL (32.0-36.0) Red Cell Distribution Width 15.1 % (11.6-14.8) Platelet Count 251 K/UL (150-450) Mean Platelet Volume 6.2 FL (6.5-10.1) Neutrophils (%) (Auto) 51.6 % (45.0-75.0) Lymphocytes (%) (Auto) 26.3 % (20.0-45.0) Monocytes (%) (Auto) 13.6 % (1.0-10.0) Eosinophils (%) (Auto) 7.1 % (0.0-3.0) Basophils (%) (Auto) 1.5 % (0.0-2.0) Sodium Level 141 MMOL/L (136-145) Potassium Level 3.8 MMOL/L (3.5-5.1) Chloride Level 100 MMOL/L (98-107) Carbon Dioxide Level 38 MMOL/L (21-32) Anion Gap 4 mmol/L (5-15) Blood Urea Nitrogen 9 mg/dL (7-18) Creatinine 0.7 MG/DL (0.55-1.30) Estimat Glomerular Filtration Rate mL/min (>60) Glucose Level 99 MG/DL (74-106) Calcium Level 9.4 MG/DL (8.5-10.1) Magnesium Level 1.7 MG/DL (1.8-2.4) Total Bilirubin 0.3 MG/DL (0.2-1.0) Aspartate Amino Transf (AST/SGOT) 10 U/L (15-37) Alanine Aminotransferase (ALT/SGPT) 12 U/L (12-78) Alkaline Phosphatase 88 U/L (46-116) Pro-B-Type Natriuretic Peptide 60 pg/mL (0-125) Total Protein 6.8 G/DL (6.4-8.2) Albumin 2.4 G/DL (3.4-5.0) Globulin 4.4 g/dL Albumin/Globulin Ratio 0.5 (1.0-2.7) Arterial Blood pH 7.280 (7.350-7.450) 7.390 (7.350-7.450) Arterial Blood Partial Pressure CO2 86.3 mmHg (35.0-45.0) 75.5 mmHg (35.0-45.0) Arterial Blood Partial Pressure O2 130.1 mmHg (75.0-100.0) 89.7 mmHg (75.0-100.0) Arterial Blood HCO3 40.5 mmol/L (22.0-26.0) 40.7 mmol/L (22.0-26.0) Arterial Blood Oxygen Saturation 98.6 % (95-100) 96.8 % (95-100) Arterial Blood Base Excess 10.7 (-2-2) 12.1 (-2-2) Tarun Test Positive Positive Objective: GENERAL: awake; no distress; on oxygen no distress; on BIPAP NECK: Supple. No adenopathy. No jugular venous distention. LUNGS: Moderate breath sounds. no rhonchi. No wheezes. stable but reduced CARDIAC: S1 and S2. Regular rhythm without murmurs, rubs, or gallops. ABDOMEN: Soft, nontender, nondistended. no HSM; EXTREMITIES: No cyanosis, clubbing; trace edema. NEUROLOGIC: Grossly nonfocal, awake alert reviewed and examined Accucheck: 140 Mk Billings MD Mar 14, 2018 08:32
[2018-03-14] MEDS: dilTIAZem HCl CD 240mg cap ORAL SCH (09:38)
[2018-03-14] MEDS: Vitamin A&D Oint 2oz Tube TOPIC SCH ×2 (09:40→21:00)
[2018-03-14 12:00] VITALS: BP 129/81
[2018-03-14 16:00] VITALS: BP 119/81
[2018-03-14] MEDS ORDERED: Tubing IV Secondary IV ONE (16:09)
[2018-03-14] MEDS ORDERED: D5 1/2NS 1000ml IV ONE (16:09)
[2018-03-14 21:00] VITALS: BP 125/69
[2018-03-15] VITALS: BP 112/70
[2018-03-15 04:00] VITALS: BP 116/58
--- NOTE | 2018-03-15 07:18 | General Progress Note ---
Assessment/Plan Problem List: (1) COPD exacerbation ICD Codes: J44.1 - Chronic obstructive pulmonary disease with (acute) exacerbation SNOMED: 719238376 (2) HTN (hypertension) ICD Codes: I10 - Essential (primary) hypertension SNOMED: 97029617 (3) Hypoxia ICD Codes: R09.02 - Hypoxemia SNOMED: 867801400 (4) Elevated troponin ICD Codes: R74.8 - Abnormal levels of other serum enzymes SNOMED: 286470534, 658283233, 891439664 (5) Renal insufficiency ICD Codes: N28.9 - Disorder of kidney and ureter, unspecified SNOMED: 687203704, 116421108 (6) Respiratory failure ICD Codes: J96.90 - Respiratory failure, unspecified, unspecified whether with hypoxia or hypercapnia SNOMED: 271845078 Qualifiers: Qualified Codes: J96.02 - Acute respiratory failure with hypercapnia (7) Right lower lobe pneumonia ICD Codes: J18.1 - Lobar pneumonia, unspecified organism SNOMED: 544599527 Qualifiers: Qualified Codes: J18.1 - Lobar pneumonia, unspecified organism Assessment/Plan resp rx o2 cont nocturnal bipap keep dry stable lice treated and resolved. no isolation needed await SC[facility] with [facility] xray hips check abg Subjective ROS Limited/Unobtainable: No Constitutional: Reports: malaise, weakness HEENT: Reports: no symptoms Cardiovascular: Reports: no symptoms Respiratory: Reports: no symptoms Gastrointestinal/Abdominal: Reports: no symptoms Genitourinary: Reports: no symptoms Neurologic/Psychiatric: Reports: no symptoms Endocrine: Reports: no symptoms Hematologic/Lymphatic: Reports: no symptoms Allergies: Coded Allergies: No Known Allergies (Unverified , 12/10/15) All Systems: reviewed and negative except above Subjective fell out of bed? found on the floor. ?slid out of chair per rn. no loc or head trauma. denies sob. compliant with bipap last night. [facility] accepted pt but is waiting for SCARLETT with insurance. case management noted. Objective Last 24 Hour Vital Signs Date Time Temp Pulse Resp B/P (MAP) Pulse Ox O2 Delivery O2 Flow Rate FiO2 03/15/18 07:01 98 Nasal Cannula 3.0 32 03/15/18 07:00 Nasal Cannula 3.0 32 03/15/18 05:07 101 24 99 Facial 30 11/16/18 04:00 98.2 107 22 116/58 (77) 99 03/15/18 03:02 103 23 98 Facial 30 03/15/18 01:14 102 24 100 Facial 30 03/15/18 00:00 98.8 93 22 112/70 (84) 99 03/14/18 22:42 103 24 100 Facial 30 03/14/18 21:00 Nasal Cannula 2.0 Nasal Cannula 2.0 03/14/18 21:00 97.7 105 22 125/69 (87) 98 03/14/18 20:48 102 24 100 Facial 30 03/14/18 20:47 Nasal Cannula 2.0 28 03/14/18 20:47 99 Nasal Cannula 28 03/14/18 16:00 97.7 89 19 119/81 (94) 97 03/14/18 12:00 97.9 99 19 129/81 (97) 92 03/14/18 09:38 87 128/67 03/14/18 09:30 Room Air 21 03/14/18 09:30 93 Room Air 21 03/14/18 09:00 Nasal Cannula 2.0 Nasal Cannula 2.0 03/14/18 08:00 97.5 87 19 128/67 (87) 92 Intake and Output 03/14/18 03/15/18 19:00 07:00 Intake Total 600 ml Balance 600 ml Other 600 ml # Voids 2 # Bowel Movements 1 Laboratory Tests 03/14/18 09:30: Arterial Blood pH 7.391, Arterial Blood Partial Pressure CO2 66.9*H, Arterial Blood Partial Pressure O2 52.5L, Arterial Blood HCO3 39.7H, Arterial Blood Oxygen Saturation 88.9*L, Arterial Blood Base Excess 12.0*H, Tarun Test Positive 03/15/18 07:01: Arterial Blood pH 7.309L, Arterial Blood Partial Pressure CO2 80.7*H, Arterial Blood Partial Pressure O2 82.4, Arterial Blood HCO3 39.6H, Arterial Blood Oxygen Saturation 95.4, Arterial Blood Base Excess 10.3*H, Tarun Test Positive Height (Feet): 5 Height (Inches): 6.00 Weight (Pounds): 221 Objective General Appearance: WD/WN, resting. on nasal cannula, opens eyes. alert. follows commands Neck: supple Cardiovascular: regular rhythm Respiratory/Chest: lungs mostly clear, few rhonchi Abdomen: normal bowel sounds, non tender, soft, no organomegaly Edema: no edema noted Arm (L), no edema noted Arm (R), no edema noted Leg (L), no edema noted Leg (R), no edema noted Pedal (L), no edema noted Pedal (R), no edema noted Generalized Manan Byrd MD Mar 15, 2018 07:18
[2018-03-15 08:00] VITALS: BP 129/66
--- NOTE | 2018-03-15 09:05 | Critical Care Progress Note ---
Assessment/Plan Assessment/Plan IMPRESSION: Acute on chronic respiratory failure, COPD with acute exacerbation, chronic respiratory acidosis and associated hypoxemia, cardiomegaly, pleural effusion and pulmonary edema, protein-calorie malnutrition. PLAN exam reviewed and doing worse respiratory care as is snf dc once stable BIPAP continuous for now with Co2 acute retention- may need intubation Trilogy ordered- for SNF ordered but would hold discharge guarded nutrition DVT prophylaxis monitor acid base and repeat ABG now hold dc with acute retention as patient at risk for intubation medications/laboratory data/nursing notes reviewed in detail note reviewed and edited care discussed with RN and RT Critical Care - Subjective Condition: critical EKG Rhythm: Sinus Rhythm I&O: Intake and Output 03/14/18 03/15/18 19:00 07:00 Intake Total 600 ml Balance 600 ml Other 600 ml # Voids 2 # Bowel Movements 1 Critical Care - Objective ET-Tube: 7.5 ET Position: 24 Last 24 Hour Vital Signs Date Time Temp Pulse Resp B/P (MAP) Pulse Ox O2 Delivery O2 Flow Rate FiO2 03/15/18 08:00 98.0 106 24 129/66 (87) 96 03/15/18 07:01 98 Nasal Cannula 3.0 32 03/15/18 07:00 Nasal Cannula 3.0 32 03/15/18 05:07 101 24 99 Facial 30 03/15/18 04:00 98.2 107 22 116/58 (77) 99 03/15/18 03:02 103 23 98 Facial 30 03/15/18 01:14 102 24 100 Facial 30 03/15/18 00:00 98.8 93 22 112/70 (84) 99 03/14/18 22:42 103 24 100 Facial 30 03/14/18 21:00 Nasal Cannula 2.0 Nasal Cannula 2.0 03/14/18 21:00 97.7 105 22 125/69 (87) 98 03/14/18 20:48 102 24 100 Facial 30 03/14/18 20:47 Nasal Cannula 2.0 28 03/14/18 20:47 99 Nasal Cannula 28 03/14/18 16:00 97.7 89 19 119/81 (94) 97 03/14/18 12:00 97.9 99 19 129/81 (97) 92 03/14/18 09:38 87 128/67 03/14/18 09:30 Room Air 21 03/14/18 09:30 93 Room Air 21 Labs: Labs Test 03/13/18 05:40 03/13/18 10:38 03/13/18 15:00 03/14/18 09:30 White Blood Count 5.6 K/UL (4.8-10.8) Red Blood Count 4.18 M/UL (4.20-5.40) Hemoglobin 11.8 G/DL (12.0-16.0) Hematocrit 39.0 % (37.0-47.0) Mean Corpuscular Volume 93 FL (80-99) Mean Corpuscular Hemoglobin 28.1 PG (27.0-31.0) Mean Corpuscular Hemoglobin Concent 30.2 G/DL (32.0-36.0) Red Cell Distribution Width 15.1 % (11.6-14.8) Platelet Count 251 K/UL (150-450) Mean Platelet Volume 6.2 FL (6.5-10.1) Neutrophils (%) (Auto) 51.6 % (45.0-75.0) Lymphocytes (%) (Auto) 26.3 % (20.0-45.0) Monocytes (%) (Auto) 13.6 % (1.0-10.0) Eosinophils (%) (Auto) 7.1 % (0.0-3.0) Basophils (%) (Auto) 1.5 % (0.0-2.0) Sodium Level 141 MMOL/L (136-145) Potassium Level 3.8 MMOL/L (3.5-5.1) Chloride Level 100 MMOL/L (98-107) Carbon Dioxide Level 38 MMOL/L (21-32) Anion Gap 4 mmol/L (5-15) Blood Urea Nitrogen 9 mg/dL (7-18) Creatinine 0.7 MG/DL (0.55-1.30) Estimat Glomerular Filtration Rate mL/min (>60) Glucose Level 99 MG/DL (74-106) Calcium Level 9.4 MG/DL (8.5-10.1) Magnesium Level 1.7 MG/DL (1.8-2.4) Total Bilirubin 0.3 MG/DL (0.2-1.0) Aspartate Amino Transf (AST/SGOT) 10 U/L (15-37) Alanine Aminotransferase (ALT/SGPT) 12 U/L (12-78) Alkaline Phosphatase 88 U/L (46-116) Pro-B-Type Natriuretic Peptide 60 pg/mL (0-125) Total Protein 6.8 G/DL (6.4-8.2) Albumin 2.4 G/DL (3.4-5.0) Globulin 4.4 g/dL Albumin/Globulin Ratio 0.5 (1.0-2.7) Arterial Blood pH 7.280 (7.350-7.450) 7.390 (7.350-7.450) 7.391 (7.350-7.450) Arterial Blood Partial Pressure CO2 86.3 mmHg (35.0-45.0) 75.5 mmHg (35.0-45.0) 66.9 mmHg (35.0-45.0) Arterial Blood Partial Pressure O2 130.1 mmHg (75.0-100.0) 89.7 mmHg (75.0-100.0) 52.5 mmHg (75.0-100.0) Arterial Blood HCO3 40.5 mmol/L (22.0-26.0) 40.7 mmol/L (22.0-26.0) 39.7 mmol/L (22.0-26.0) Arterial Blood Oxygen Saturation 98.6 % (95-100) 96.8 % (95-100) 88.9 % (95-100) Arterial Blood Base Excess 10.7 (-2-2) 12.1 (-2-2) 12.0 (-2-2) Tarun Test Positive Positive Positive Test 03/15/18 07:01 Arterial Blood pH 7.309 (7.350-7.450) Arterial Blood Partial Pressure CO2 80.7 mmHg (35.0-45.0) Arterial Blood Partial Pressure O2 82.4 mmHg (75.0-100.0) Arterial Blood HCO3 39.6 mmol/L (22.0-26.0) Arterial Blood Oxygen Saturation 95.4 % (95-100) Arterial Blood Base Excess 10.3 (-2-2) Tarun Test Positive Objective: GENERAL: awake; no distress; on oxygen no distress; off BIPAP and not doing well NECK: Supple. No adenopathy. No jugular venous distention. LUNGS: Moderate breath sounds. no rhonchi. No wheezes. stable but reduced CARDIAC: S1 and S2. Regular rhythm without murmurs, rubs, or gallops. ABDOMEN: Soft, nontender, nondistended. no HSM; EXTREMITIES: No cyanosis, clubbing; trace edema. NEUROLOGIC: Grossly nonfocal, awake alert reviewed and examined Accucheck: Mk Machado MD Mar 15, 2018 09:05
[2018-03-15] MEDS: dilTIAZem HCl CD 240mg cap ORAL SCH (09:09)
[2018-03-15] MEDS: Vitamin A&D Oint 2oz Tube TOPIC SCH ×2 (09:09→20:28)
--- NOTE | 2018-03-15 09:51 | Diagnostic Imaging Report ---
Indication: Pain, status post fall Technique: 2 views of the right hip Comparison: none Findings: There are degenerative proliferative changes of the acetabulum. There is mild degenerative joint space narrowing. No acute fractures. No dislocations. Bones are osteoporotic. There are degenerative changes of the pubic symphysis. Impression: No acute bony trauma This agrees with the preliminary interpretation provided overnight by [facility].
--- NOTE | 2018-03-15 09:52 | Diagnostic Imaging Report ---
Indication: Pain status post fall Technique: 2 views of the left hip Comparison: none Findings: No acute fractures. No dislocations. There are degenerative proliferative changes of the acetabulum and mild joint space narrowing. Impression: No acute process This agrees with the preliminary interpretation provided overnight by [facility].
--- NOTE | 2018-03-15 10:26 | Urology Progress Note ---
Assessment/Plan Assessment/Plan 1. Gross hematuria, improved. 2. Urinary retention hx. 3. Probable neurogenic bladder. 4. Pyuria. 5. Proteinuria. 6. Possible hemorrhagic cystitis. monitor clinically no active bleeding s/p abx off anticoagulation, ok to resume if needed monitor h/h cysto later consider CT check urine cx PRN Subjective Allergies: Coded Allergies: No Known Allergies (Unverified , 12/10/15) Subjective all noted, comfortable, voiding Objective Last 24 Hour Vital Signs Date Time Temp Pulse Resp B/P (MAP) Pulse Ox O2 Delivery O2 Flow Rate FiO2 03/15/18 09:45 36 24 97 Facial 30 03/15/18 09:09 106 129/66 03/15/18 09:00 Bi-pap 2.0 Room Air 3.0 Bi-pap 03/15/18 08:00 98.0 106 24 129/66 (87) 96 03/15/18 07:01 98 Nasal Cannula 3.0 32 03/15/18 07:00 Nasal Cannula 3.0 32 03/15/18 05:07 101 24 99 Facial 30 03/15/18 04:00 98.2 107 22 116/58 (77) 99 03/15/18 03:02 103 23 98 Facial 30 03/15/18 01:14 102 24 100 Facial 30 03/15/18 00:00 98.8 93 22 112/70 (84) 99 03/14/18 22:42 103 24 100 Facial 30 03/14/18 21:00 Nasal Cannula 2.0 Nasal Cannula 2.0 03/14/18 21:00 97.7 105 22 125/69 (87) 98 03/14/18 20:48 102 24 100 Facial 30 03/14/18 20:47 Nasal Cannula 2.0 28 03/14/18 20:47 99 Nasal Cannula 28 03/14/18 16:00 97.7 89 19 119/81 (94) 97 03/14/18 12:00 97.9 99 19 129/81 (97) 92 Intake and Output 03/14/18 03/15/18 19:00 07:00 Intake Total 600 ml Balance 600 ml Other 600 ml # Voids 2 # Bowel Movements 1 Microbiology Date/Time Source Procedure Growth Status 02/03/18 15:30 Blood Blood Culture - Final NO GROWTH AFTER 5 DAYS Complete 02/20/18 18:40 Stool Clostridium difficile Toxin Assay - Final Complete 02/20/18 12:50 Urine,Clean Catch Urine Culture - Final NO GROWTH AFTER 48 HOURS Complete 02/03/18 15:30 Rectal Mucosa - Final NO CARBAPENEM-RESISTANT ENTEROBACTERI... Complete Current Medications Medications (Trade) Dose Ordered Sig/Isbaella Route PRN Reason Start Time Stop Time Status Last Admin Dose Admin Acetaminophen (Tylenol) 650 mg Q6H PRN ORAL Mild Pain/Temp > 100.5 03/06/18 06:15 04/05/18 06:14 03/06/18 06:31 Bisacodyl (Dulcolax) 10 mg DAILYPRN PRN RECTAL Constipation 03/05/18 17:00 04/01/18 16:59 Clonidine HCl (Catapres Tab) 0.1 mg Q4H PRN ORAL SBP above 150 03/05/18 18:45 03/21/18 18:38 Diltiazem HCl (Cardizem CD) 240 mg DAILY ORAL 03/06/18 09:00 03/27/18 08:59 03/15/18 09:09 Diphenhydramine HCl (Benadryl) 25 mg Q6H PRN ORAL Itching 03/06/18 06:15 04/05/18 06:14 03/11/18 08:36 Pantoprazole (Protonix) 40 mg DAILY ORAL 03/06/18 09:00 03/29/18 08:59 03/15/18 09:09 Vitamin A/Vitamin D (A & D Oint) 1 applic EVERY 12 HOURS TOPIC 03/05/18 21:00 03/21/18 20:59 03/15/18 09:09 Laboratory Tests 03/15/18 07:01: Arterial Blood pH 7.309L, Arterial Blood Partial Pressure CO2 80.7*H, Arterial Blood Partial Pressure O2 82.4, Arterial Blood HCO3 39.6H, Arterial Blood Oxygen Saturation 95.4, Arterial Blood Base Excess 10.3*H, Tarun Test Positive 03/15/18 09:45: Arterial Blood pH 7.275L, Arterial Blood Partial Pressure CO2 89.2*H, Arterial Blood Partial Pressure O2 79.4, Arterial Blood HCO3 40.5*H, Arterial Blood Oxygen Saturation 94.5L, Arterial Blood Base Excess 10.3*H, Tarun Test Positive Height (Feet): 5 Height (Inches): 6.00 Weight (Pounds): 221 Objective exam stable renal u/s (02/19) noted last CXR noted Spenser Marc MD Mar 15, 2018 10:26
[2018-03-15 12:00] VITALS: BP 126/65
[2018-03-15 16:00] VITALS: BP 130/62
[2018-03-15 20:00] VITALS: BP 123/65
[2018-03-16] VITALS: BP 128/69
[2018-03-16 04:00] VITALS: BP 118/63
--- NOTE | 2018-03-16 07:54 | General Progress Note ---
Assessment/Plan Problem List: (1) COPD exacerbation ICD Codes: J44.1 - Chronic obstructive pulmonary disease with (acute) exacerbation SNOMED: 883096749 (2) HTN (hypertension) ICD Codes: I10 - Essential (primary) hypertension SNOMED: 16074379 (3) Hypoxia ICD Codes: R09.02 - Hypoxemia SNOMED: 379928004 (4) Elevated troponin ICD Codes: R74.8 - Abnormal levels of other serum enzymes SNOMED: 471055530, 464846231, 688314021 (5) Renal insufficiency ICD Codes: N28.9 - Disorder of kidney and ureter, unspecified SNOMED: 359069423, 378798393 (6) Respiratory failure ICD Codes: J96.90 - Respiratory failure, unspecified, unspecified whether with hypoxia or hypercapnia SNOMED: 197567134 Qualifiers: Qualified Codes: J96.02 - Acute respiratory failure with hypercapnia (7) Right lower lobe pneumonia ICD Codes: J18.1 - Lobar pneumonia, unspecified organism SNOMED: 323995421 Qualifiers: Qualified Codes: J18.1 - Lobar pneumonia, unspecified organism Assessment/Plan resp rx o2 continuous bipap keep dry check cxr check abg Subjective ROS Limited/Unobtainable: No Constitutional: Reports: malaise, weakness HEENT: Reports: no symptoms Cardiovascular: Reports: no symptoms Respiratory: Reports: shortness of breath Gastrointestinal/Abdominal: Reports: no symptoms Genitourinary: Reports: no symptoms Neurologic/Psychiatric: Reports: no symptoms Endocrine: Reports: no symptoms Hematologic/Lymphatic: Reports: no symptoms Allergies: Coded Allergies: No Known Allergies (Unverified , 12/10/15) All Systems: reviewed and negative except above Subjective transferred to new for continuous bipap. worsening hypercapnea. +sob. Objective Last 24 Hour Vital Signs Date Time Temp Pulse Resp B/P (MAP) Pulse Ox O2 Delivery O2 Flow Rate FiO2 03/16/18 06:52 97 Bi-pap 30 03/16/18 06:52 Bi-pap 30 03/16/18 06:51 94 20 99 Facial 30 03/16/18 04:57 97 28 99 Facial 30 03/16/18 04:00 98.3 88 18 118/63 (81) 100 03/16/18 03:47 91 03/16/18 02:38 94 19 98 Facial 30 03/16/18 00:00 97.9 89 22 128/69 (88) 98 03/15/18 23:37 89 03/15/18 22:33 93 25 99 Facial 30 03/15/18 21:00 Bi-pap Bi-pap Bi-pap 03/15/18 20:40 94 17 98 Facial 30 03/15/18 20:10 91 03/15/18 20:00 97.6 94 19 123/65 (84) 97 03/15/18 19:22 Bi-pap 30 03/15/18 19:21 98 Bi-pap 30 03/15/18 19:20 92 24 98 Facial 30 03/15/18 17:04 91 25 99 Facial 30 03/15/18 16:00 98.0 90 24 130/62 (84) 97 03/15/18 15:23 91 03/15/18 14:58 92 35 100 Facial 30 03/15/18 12:56 96 23 98 Facial 30 03/15/18 12:00 97.9 96 22 126/65 (85) 97 03/15/18 11:49 95 03/15/18 11:10 Bi-pap Bi-pap Bi-pap 03/15/18 10:45 100 36 98 Facial 30 03/15/18 10:28 100 03/15/18 09:45 96 24 97 Facial 30 03/15/18 09:09 106 129/66 03/15/18 09:00 Bi-pap 2.0 Room Air 3.0 Bi-pap 03/15/18 08:00 98.0 106 24 129/66 (87) 96 Intake and Output 03/15/18 03/16/18 19:00 07:00 Intake Total 500 ml Output Total 0 ml 0 ml Balance 0 ml 500 ml Intake Oral 500 ml Output Urine Total 0 ml 0 ml # Bowel Movements 1 Laboratory Tests 03/15/18 09:45: Arterial Blood pH 7.275L, Arterial Blood Partial Pressure CO2 89.2*H, Arterial Blood Partial Pressure O2 79.4, Arterial Blood HCO3 40.5*H, Arterial Blood Oxygen Saturation 94.5L, Arterial Blood Base Excess 10.3*H, Tarun Test Positive Height (Feet): 5 Height (Inches): 6.00 Weight (Pounds): 205 Objective General Appearance: WD/WN, resting. on bipap, opens eyes. alert. follows commands Neck: supple Cardiovascular: regular rhythm Respiratory/Chest: lungs mostly clear, few rhonchi Abdomen: normal bowel sounds, non tender, soft, no organomegaly Edema: no edema noted Arm (L), no edema noted Arm (R), no edema noted Leg (L), no edema noted Leg (R), no edema noted Pedal (L), no edema noted Pedal (R), no edema noted Generalized Manan Byrd MD Mar 16, 2018 07:54
[2018-03-16 08:00] VITALS: BP 128/72
[2018-03-16] MEDS: dilTIAZem HCl CD 240mg cap ORAL SCH (08:59)
[2018-03-16] MEDS: Vitamin A&D Oint 2oz Tube TOPIC SCH ×2 (09:00→20:06)
--- NOTE | 2018-03-16 09:24 | Critical Care Progress Note ---
Assessment/Plan Assessment/Plan IMPRESSION: Acute on chronic respiratory failure, COPD with acute exacerbation, chronic respiratory acidosis and associated hypoxemia, cardiomegaly, pleural effusion and pulmonary edema, protein-calorie malnutrition. PLAN exam reviewed and not improved significant acidemia respiratory care as is snf dc once stable BIPAP continuous for now with Co2 acute retention- may need intubation if not improved guarded nutrition DVT prophylaxis monitor acid base and repeat ABG now hold dc with acute retention as patient at risk for intubation medications/laboratory data/nursing notes reviewed in detail note reviewed and edited care discussed with RN and RT Critical Care - Subjective Interval Events: care noted and on BIPAP ROS Limited/Unobtainable: Yes Condition: unchanged EKG Rhythm: Sinus Rhythm I&O: Intake and Output 03/15/18 03/16/18 19:00 07:00 Intake Total 500 ml Output Total 0 ml 0 ml Balance 0 ml 500 ml Intake Oral 500 ml Output Urine Total 0 ml 0 ml # Bowel Movements 1 Critical Care - Objective ET-Tube: 7.5 ET Position: 24 Last 24 Hour Vital Signs Date Time Temp Pulse Resp B/P (MAP) Pulse Ox O2 Delivery O2 Flow Rate FiO2 03/16/18 08:59 92 128/72 03/16/18 08:00 97.9 92 17 128/72 (90) 100 03/16/18 06:52 97 Bi-pap 30 03/16/18 06:52 Bi-pap 30 03/16/18 06:51 94 20 99 Facial 30 03/16/18 04:57 97 28 99 Facial 30 03/16/18 04:00 98.3 88 18 118/63 (81) 100 03/16/18 03:47 91 03/16/18 02:38 94 19 98 Facial 30 03/16/18 00:00 97.9 89 22 128/69 (88) 98 03/15/18 23:37 89 03/15/18 22:33 93 25 99 Facial 30 03/15/18 21:00 Bi-pap Bi-pap Bi-pap 03/15/18 20:40 94 17 98 Facial 30 03/15/18 20:10 91 03/15/18 20:00 97.6 94 19 123/65 (84) 97 03/15/18 19:22 Bi-pap 30 03/15/18 19:21 98 Bi-pap 30 03/15/18 19:20 92 24 98 Facial 30 03/15/18 17:04 91 25 99 Facial 30 03/15/18 16:00 98.0 90 24 130/62 (84) 97 03/15/18 15:23 91 03/15/18 14:58 92 35 100 Facial 30 03/15/18 12:56 96 23 98 Facial 30 03/15/18 12:00 97.9 96 22 126/65 (85) 97 03/15/18 11:49 95 03/15/18 11:10 Bi-pap Bi-pap Bi-pap 03/15/18 10:45 100 36 98 Facial 30 03/15/18 10:28 100 03/15/18 09:45 96 24 97 Facial 30 Labs: Labs Test 03/13/18 10:38 03/13/18 15:00 03/14/18 09:30 03/15/18 07:01 Arterial Blood pH 7.280 (7.350-7.450) 7.390 (7.350-7.450) 7.391 (7.350-7.450) 7.309 (7.350-7.450) Arterial Blood Partial Pressure CO2 86.3 mmHg (35.0-45.0) 75.5 mmHg (35.0-45.0) 66.9 mmHg (35.0-45.0) 80.7 mmHg (35.0-45.0) Arterial Blood Partial Pressure O2 130.1 mmHg (75.0-100.0) 89.7 mmHg (75.0-100.0) 52.5 mmHg (75.0-100.0) 82.4 mmHg (75.0-100.0) Arterial Blood HCO3 40.5 mmol/L (22.0-26.0) 40.7 mmol/L (22.0-26.0) 39.7 mmol/L (22.0-26.0) 39.6 mmol/L (22.0-26.0) Arterial Blood Oxygen Saturation 98.6 % (95-100) 96.8 % (95-100) 88.9 % (95-100) 95.4 % (95-100) Arterial Blood Base Excess 10.7 (-2-2) 12.1 (-2-2) 12.0 (-2-2) 10.3 (-2-2) Tarun Test Positive Positive Positive Positive Test 03/15/18 09:45 03/16/18 08:40 Arterial Blood pH 7.275 (7.350-7.450) Arterial Blood Partial Pressure CO2 89.2 mmHg (35.0-45.0) Arterial Blood Partial Pressure O2 79.4 mmHg (75.0-100.0) Arterial Blood HCO3 40.5 mmol/L (22.0-26.0) Arterial Blood Oxygen Saturation 94.5 % (95-100) Arterial Blood Base Excess 10.3 (-2-2) Tarun Test Positive Objective: GENERAL: awake; no distress; on oxygen no distress; and on BIPAP NECK: Supple. No adenopathy. No jugular venous distention. LUNGS: Moderate breath sounds. no rhonchi. No wheezes. stable but reduced CARDIAC: S1 and S2. Regular rhythm without murmurs, rubs, or gallops. ABDOMEN: Soft, nontender, nondistended. no HSM; EXTREMITIES: No cyanosis, clubbing; trace edema. NEUROLOGIC: Grossly nonfocal, awake alert reviewed and examined Accucheck: 140 Mk Billings MD Mar 16, 2018 09:24
--- NOTE | 2018-03-16 09:31 | Diagnostic Imaging Report ---
EXAM: XR Chest, 1 View CLINICAL HISTORY: COUGH TECHNIQUE: Frontal view of the chest. COMPARISON: No relevant prior studies available. FINDINGS: Lungs: 4.5 cm masslike opacity in the right lower lung appears larger than previous. This is lentiform in could reflect a so-called pseudotumor from fluid trapped in a fissure. Lateral view may be helpful. Basilar atelectasis. Vascular congestion. Air cyst in the right upper lobe Pleural space: Question small left pleural effusion.. Heart: Borderline cardiomegaly. Mediastinum: Unremarkable. Bones/joints: Unremarkable. IMPRESSION: 4.5 cm masslike opacity in the right lower lung could reflect pseudotumor from pleural fluid. Lateral view may be helpful. Basilar atelectasis. Question small left pleural effusion.
[2018-03-16 09:47] LABS: BASOPHILS % (AUTO) 1.2 % (0.0-2.0); EOSINOPHILS % (AUTO) 7.9 % (0.0-3.0); HEMATOCRIT 41.8 % (37.0-47.0); HEMOGLOBIN 12.7 G/DL (12.0-16.0); LYMPHOCYTES % (AUTO) 24.6 % (20.0-45.0); MEAN CORPUSCULAR VOLUME 93 FL (80-99); MONOCYTES % (AUTO) 8.2 % (1.0-10.0); PLATELET COUNT 292 K/UL (150-450); RED BLOOD COUNT 4.49 M/UL (4.20-5.40); RED CELL DISTRIBUTION WIDTH 14.9 % (11.6-14.8); WHITE BLOOD COUNT 7.3 K/UL (4.8-10.8)
[2018-03-16 10:13] LABS: ALANINE AMINOTRANSFERASE 12 U/L (12-78); ALBUMIN 2.4 G/DL (3.4-5.0); ALBUMIN/GLOBULIN RATIO 0.5 (1.0-2.7); ALKALINE PHOSPHATASE 98 U/L (46-116); ANION GAP 9 mmol/L (5-15); ASPARTATE AMINO TRANSFERASE 12 U/L (15-37); BILIRUBIN,TOTAL 0.3 MG/DL (0.2-1.0); BLOOD UREA NITROGEN 12 mg/dL (7-18); CALCIUM 9.3 MG/DL (8.5-10.1); CARBON DIOXIDE 35 MMOL/L (21-32); CHLORIDE 99 MMOL/L (98-107); CREATININE 0.6 MG/DL (0.55-1.30); POTASSIUM 4.3 MMOL/L (3.5-5.1); SODIUM 143 MMOL/L (136-145)
--- NOTE | 2018-03-16 10:40 | Urology Progress Note ---
Assessment/Plan Assessment/Plan 1. Gross hematuria, improved. 2. Urinary retention hx. 3. Probable neurogenic bladder. 4. Pyuria. 5. Proteinuria. 6. Possible hemorrhagic cystitis. monitor clinically no active bleeding s/p abx off anticoagulation, ok to resume if needed monitor h/h cysto later consider CT check urine cx PRN Subjective Allergies: Coded Allergies: No Known Allergies (Unverified , 12/10/15) Subjective all noted, resp distress, transferred to step down unit, bipap voiding, urine reported grossly yellow Objective Last 24 Hour Vital Signs Date Time Temp Pulse Resp B/P (MAP) Pulse Ox O2 Delivery O2 Flow Rate FiO2 03/16/18 09:24 89 20 99 Facial 30 03/16/18 08:59 92 128/72 03/16/18 08:00 99 03/16/18 08:00 97.9 92 17 128/72 (90) 100 03/16/18 06:52 97 Bi-pap 30 03/16/18 06:52 Bi-pap 30 03/16/18 06:51 94 20 99 Facial 30 03/16/18 04:57 97 28 99 Facial 30 03/16/18 04:00 98.3 88 18 118/63 (81) 100 03/16/18 03:47 91 03/16/18 02:38 94 19 98 Facial 30 03/16/18 00:00 97.9 89 22 128/69 (88) 98 03/15/18 23:37 89 03/15/18 22:33 93 25 99 Facial 30 03/15/18 21:00 Bi-pap Bi-pap Bi-pap 03/15/18 20:40 94 17 98 Facial 30 03/15/18 20:10 91 03/15/18 20:00 97.6 94 19 123/65 (84) 97 03/15/18 19:22 Bi-pap 30 03/15/18 19:21 98 Bi-pap 30 03/15/18 19:20 92 24 98 Facial 30 03/15/18 17:04 91 25 99 Facial 30 03/15/18 16:00 98.0 90 24 130/62 (84) 97 03/15/18 15:23 91 03/15/18 14:58 92 35 100 Facial 30 03/15/18 12:56 96 23 98 Facial 30 03/15/18 12:00 97.9 96 22 126/65 (85) 97 03/15/18 11:49 95 03/15/18 11:10 Bi-pap Bi-pap Bi-pap 03/15/18 10:45 100 36 98 Facial 30 Intake and Output 03/15/18 03/16/18 19:00 07:00 Intake Total 500 ml Output Total 0 ml 0 ml Balance 0 ml 500 ml Intake Oral 500 ml Output Urine Total 0 ml 0 ml # Bowel Movements 1 Microbiology Date/Time Source Procedure Growth Status 02/03/18 15:30 Blood Blood Culture - Final NO GROWTH AFTER 5 DAYS Complete 02/20/18 18:40 Stool Clostridium difficile Toxin Assay - Final Complete 02/20/18 12:50 Urine,Clean Catch Urine Culture - Final NO GROWTH AFTER 48 HOURS Complete 02/03/18 15:30 Rectal Mucosa - Final NO CARBAPENEM-RESISTANT ENTEROBACTERI... Complete Current Medications Medications (Trade) Dose Ordered Sig/Isabella Route PRN Reason Start Time Stop Time Status Last Admin Dose Admin Acetaminophen (Tylenol) 650 mg Q6H PRN ORAL Mild Pain/Temp > 100.5 03/15/18 11:18 04/05/18 11:17 Bisacodyl (Dulcolax) 10 mg DAILYPRN PRN RECTAL Constipation 03/15/18 11:18 04/01/18 11:17 Clonidine HCl (Catapres Tab) 0.1 mg Q4H PRN ORAL SBP above 150 03/15/18 11:18 03/21/18 11:17 Diltiazem HCl (Cardizem CD) 240 mg DAILY ORAL 03/16/18 09:00 03/27/18 08:59 03/16/18 08:59 Diphenhydramine HCl (Benadryl) 25 mg Q6H PRN ORAL Itching 03/15/18 12:15 04/05/18 06:14 Ondansetron HCl (Zofran) 4 mg Q4H PRN IVP Nausea & Vomiting 03/16/18 09:00 04/15/18 08:59 03/16/18 08:59 Pantoprazole (Protonix) 40 mg DAILY ORAL 03/16/18 09:00 03/29/18 08:59 03/16/18 08:59 Vitamin A/Vitamin D (A & D Oint) 1 applic EVERY 12 HOURS TOPIC 03/15/18 21:00 03/21/18 20:59 03/16/18 09:00 Laboratory Tests 03/16/18 08:40: White Blood Count 7.3, Red Blood Count 4.49, Hemoglobin 12.7, Hematocrit 41.8, Mean Corpuscular Volume 93, Mean Corpuscular Hemoglobin 28.2, Mean Corpuscular Hemoglobin Concent 30.3L, Red Cell Distribution Width 14.9H, Platelet Count 292 , Mean Platelet Volume 6.1L, Neutrophils (%) (Auto) 58.0, Lymphocytes (%) (Auto ) 24.6, Monocytes (%) (Auto) 8.2, Eosinophils (%) (Auto) 7.9H, Basophils (%) ( Auto) 1.2, Sodium Level 143, Potassium Level 4.3, Chloride Level 99, Carbon Dioxide Level 35H, Anion Gap 9, Blood Urea Nitrogen 12, Creatinine 0.6, Estimat Glomerular Filtration Rate , Glucose Level 102, Calcium Level 9.3, Total Bilirubin 0.3, Aspartate Amino Transf (AST/SGOT) 12L, Alanine Aminotransferase ( ALT/SGPT) 12, Alkaline Phosphatase 98, Total Protein 7.1, Albumin 2.4L, Globulin 4.7, Albumin/Globulin Ratio 0.5L 03/16/18 09:20: Arterial Blood pH 7.308L, Arterial Blood Partial Pressure CO2 80.7*H, Arterial Blood Partial Pressure O2 91.8, Arterial Blood HCO3 39.5H, Arterial Blood Oxygen Saturation 91.8L, Arterial Blood Base Excess 10*H, Tarun Test Positive Height (Feet): 5 Height (Inches): 6.00 Weight (Pounds): 205 Objective exam stable renal u/s (02/19) noted last CXR noted Spenser Marc MD Mar 16, 2018 10:40
[2018-03-16 11:52] VITALS: BP 119/61
[2018-03-16] MEDS ORDERED: Tubing IV Secondary IV ONE (15:45)
[2018-03-16 16:00] VITALS: BP 124/60
[2018-03-16 20:00] VITALS: BP 130/63
[2018-03-17] VITALS: BP 127/67
[2018-03-17 04:00] VITALS: BP 121/65
[2018-03-17 08:00] VITALS: BP 148/72
--- NOTE | 2018-03-17 09:12 | General Progress Note ---
Assessment/Plan Problem List: (1) COPD exacerbation ICD Codes: J44.1 - Chronic obstructive pulmonary disease with (acute) exacerbation SNOMED: 258324779 (2) HTN (hypertension) ICD Codes: I10 - Essential (primary) hypertension SNOMED: 81744482 (3) Hypoxia ICD Codes: R09.02 - Hypoxemia SNOMED: 759061557 (4) Elevated troponin ICD Codes: R74.8 - Abnormal levels of other serum enzymes SNOMED: 021017370, 727810043, 243319313 (5) Renal insufficiency ICD Codes: N28.9 - Disorder of kidney and ureter, unspecified SNOMED: 683391027, 123606946 (6) Respiratory failure ICD Codes: J96.90 - Respiratory failure, unspecified, unspecified whether with hypoxia or hypercapnia SNOMED: 621605691 Qualifiers: Qualified Codes: J96.02 - Acute respiratory failure with hypercapnia (7) Right lower lobe pneumonia ICD Codes: J18.1 - Lobar pneumonia, unspecified organism SNOMED: 907642410 Qualifiers: Qualified Codes: J18.1 - Lobar pneumonia, unspecified organism Status: stable Assessment/Plan resp rx o2 continuous bipap keep dry monitor cxr monitor abg Subjective ROS Limited/Unobtainable: No Constitutional: Reports: malaise, weakness HEENT: Reports: no symptoms Cardiovascular: Reports: no symptoms Respiratory: Reports: no symptoms Gastrointestinal/Abdominal: Reports: no symptoms Genitourinary: Reports: no symptoms Neurologic/Psychiatric: Reports: no symptoms Endocrine: Reports: no symptoms Hematologic/Lymphatic: Reports: no symptoms Allergies: Coded Allergies: No Known Allergies (Unverified , 12/10/15) All Systems: reviewed and negative except above Subjective no events. remains on bipap. Abg only slightly better. Objective Last 24 Hour Vital Signs Date Time Temp Pulse Resp B/P (MAP) Pulse Ox O2 Delivery O2 Flow Rate FiO2 03/17/18 08:51 104 19 98 Full Face 35 03/17/18 08:00 101 03/17/18 07:04 Bi-pap 30 03/17/18 07:04 90 27 99 Full Face 30 03/17/18 07:03 98 Bi-pap 30 03/17/18 05:27 92 30 98 Full Face 30 03/17/18 04:00 97.5 95 20 121/65 (83) 98 03/17/18 04:00 93 03/17/18 03:30 98 2.0 28 03/17/18 01:03 90 21 98 Full Face 30 03/17/18 00:00 98.0 94 22 127/67 (87) 97 03/17/18 00:00 94 03/16/18 23:11 93 23 100 Full Face 30 03/16/18 21:02 96 2.0 28 03/16/18 21:00 Bi-pap Bi-pap Bi-pap 03/16/18 20:00 93 03/16/18 20:00 98.5 96 24 130/63 (85) 96 03/16/18 19:30 Bi-pap 30 03/16/18 19:30 99 Bi-pap 30 03/16/18 19:30 92 18 99 Facial 30 03/16/18 17:40 81 24 99 Full Face 30 03/16/18 16:00 97.8 97 27 124/60 (81) 99 03/16/18 16:00 102 03/16/18 15:23 79 24 99 Full Face 30 03/16/18 13:54 81 23 98 Facial 30 03/16/18 12:00 Bi-pap Bi-pap Bi-pap 03/16/18 12:00 98 03/16/18 11:52 98.2 97 19 119/61 (80) 97 03/16/18 11:13 83 19 97 Facial 30 03/16/18 09:24 89 20 99 Facial 30 Intake and Output 03/16/18 03/17/18 19:00 07:00 Intake Total 500 ml Output Total 300 ml Balance 500 ml -300 ml Intake Oral 500 ml Output Urine Total 300 ml # Voids 1 Laboratory Tests 03/16/18 09:20: Arterial Blood pH 7.308L, Arterial Blood Partial Pressure CO2 80.7*H, Arterial Blood Partial Pressure O2 91.8, Arterial Blood HCO3 39.5H, Arterial Blood Oxygen Saturation 91.8L, Arterial Blood Base Excess 10*H, Tarun Test Positive 03/17/18 04:00: Arterial Blood pH 7.328L, Arterial Blood Partial Pressure CO2 77.5*H, Arterial Blood Partial Pressure O2 72.5L, Arterial Blood HCO3 39.0H, Arterial Blood Oxygen Saturation 94.5L, Arterial Blood Base Excess 10.7*H, Tarun Test Positive Height (Feet): 5 Height (Inches): 6.00 Weight (Pounds): 214 Objective General Appearance: WD/WN, resting. on bipap, opens eyes. alert. follows commands Neck: supple Cardiovascular: regular rhythm Respiratory/Chest: lungs mostly clear, few rhonchi Abdomen: normal bowel sounds, non tender, soft, no organomegaly Edema: no edema noted Arm (L), no edema noted Arm (R), no edema noted Leg (L), no edema noted Leg (R), no edema noted Pedal (L), no edema noted Pedal (R), no edema noted Generalized Manan Byrd MD Mar 17, 2018 09:12
[2018-03-17] MEDS: dilTIAZem HCl CD 240mg cap ORAL SCH (09:20)
[2018-03-17] MEDS: Vitamin A&D Oint 2oz Tube TOPIC SCH ×2 (09:21→20:53)
--- NOTE | 2018-03-17 10:07 | Diagnostic Imaging Report ---
INDICATION: Shortness of breath COMPARISON: Chest x-ray dated 03/16/18 FINDINGS: Single frontal view demonstrates a normal cardiomediastinal silhouette. Stable opacity within the left lower lung zone. No pleural effusions. The visualized osseous structures are within normal limits. Atherosclerotic vascular disease. IMPRESSION: Stable left lower lung zone opacity.
--- NOTE | 2018-03-17 10:07 | Critical Care Progress Note ---
Assessment/Plan Assessment/Plan IMPRESSION: Acute on chronic respiratory failure, COPD with acute exacerbation, chronic respiratory acidosis and associated hypoxemia, cardiomegaly, pleural effusion and pulmonary edema, protein-calorie malnutrition. loculated pleural effusion likely PLAN exam reviewed and not improved still with CO2 retention and worse respiratory care as is snf dc once stable; concerned as patient may benefit from trach BIPAP continuous for now with Co2 acute retention- may need intubation if not improved guarded nutrition DVT prophylaxis monitor acid base and repeat ABG daily hold dc with acute retention as patient at risk for intubation medications/laboratory data/nursing notes reviewed in detail note reviewed and edited care discussed with RN and RT Critical Care - Subjective ROS Limited/Unobtainable: Yes Condition: unchanged EKG Rhythm: Sinus Rhythm I&O: Intake and Output 03/16/18 03/17/18 19:00 07:00 Intake Total 500 ml Output Total 300 ml Balance 500 ml -300 ml Intake Oral 500 ml Output Urine Total 300 ml # Voids 1 Critical Care - Objective ET-Tube: 7.5 ET Position: 24 Last 24 Hour Vital Signs Date Time Temp Pulse Resp B/P (MAP) Pulse Ox O2 Delivery O2 Flow Rate FiO2 03/17/18 09:20 104 148/72 03/17/18 08:51 104 19 98 Full Face 35 03/17/18 08:00 101 03/17/18 08:00 98.1 100 20 148/72 (97) 98 03/17/18 07:04 Bi-pap 30 03/17/18 07:04 90 27 99 Full Face 30 03/17/18 07:03 98 Bi-pap 30 03/17/18 05:27 92 30 98 Full Face 30 03/17/18 04:00 97.5 95 20 121/65 (83) 98 03/17/18 04:00 93 03/17/18 03:30 98 2.0 28 03/17/18 01:03 90 21 98 Full Face 30 03/17/18 00:00 98.0 94 22 127/67 (87) 97 03/17/18 00:00 94 03/16/18 23:11 93 23 100 Full Face 30 03/16/18 21:02 96 2.0 28 03/16/18 21:00 Bi-pap Bi-pap Bi-pap 03/16/18 20:00 93 03/16/18 20:00 98.5 96 24 130/63 (85) 96 03/16/18 19:30 Bi-pap 30 03/16/18 19:30 99 Bi-pap 30 03/16/18 19:30 92 18 99 Facial 30 03/16/18 17:40 81 24 99 Full Face 30 03/16/18 16:00 97.8 97 27 124/60 (81) 99 03/16/18 16:00 102 03/16/18 15:23 79 24 99 Full Face 30 03/16/18 13:54 81 23 98 Facial 30 03/16/18 12:00 Bi-pap Bi-pap Bi-pap 03/16/18 12:00 98 03/16/18 11:52 98.2 97 19 119/61 (80) 97 03/16/18 11:13 83 19 97 Facial 30 Labs: Labs Test 03/15/18 07:01 03/15/18 09:45 03/16/18 08:40 03/16/18 09:20 Arterial Blood pH 7.309 (7.350-7.450) 7.275 (7.350-7.450) 7.308 (7.350-7.450) Arterial Blood Partial Pressure CO2 80.7 mmHg (35.0-45.0) 89.2 mmHg (35.0-45.0) 80.7 mmHg (35.0-45.0) Arterial Blood Partial Pressure O2 82.4 mmHg (75.0-100.0) 79.4 mmHg (75.0-100.0) 91.8 mmHg (75.0-100.0) Arterial Blood HCO3 39.6 mmol/L (22.0-26.0) 40.5 mmol/L (22.0-26.0) 39.5 mmol/L (22.0-26.0) Arterial Blood Oxygen Saturation 95.4 % (95-100) 94.5 % (95-100) 91.8 % (95-100) Arterial Blood Base Excess 10.3 (-2-2) 10.3 (-2-2) 10 (-2-2) Tarun Test Positive Positive Positive White Blood Count 7.3 K/UL (4.8-10.8) Red Blood Count 4.49 M/UL (4.20-5.40) Hemoglobin 12.7 G/DL (12.0-16.0) Hematocrit 41.8 % (37.0-47.0) Mean Corpuscular Volume 93 FL (80-99) Mean Corpuscular Hemoglobin 28.2 PG (27.0-31.0) Mean Corpuscular Hemoglobin Concent 30.3 G/DL (32.0-36.0) Red Cell Distribution Width 14.9 % (11.6-14.8) Platelet Count 292 K/UL (150-450) Mean Platelet Volume 6.1 FL (6.5-10.1) Neutrophils (%) (Auto) 58.0 % (45.0-75.0) Lymphocytes (%) (Auto) 24.6 % (20.0-45.0) Monocytes (%) (Auto) 8.2 % (1.0-10.0) Eosinophils (%) (Auto) 7.9 % (0.0-3.0) Basophils (%) (Auto) 1.2 % (0.0-2.0) Sodium Level 143 MMOL/L (136-145) Potassium Level 4.3 MMOL/L (3.5-5.1) Chloride Level 99 MMOL/L (98-107) Carbon Dioxide Level 35 MMOL/L (21-32) Anion Gap 9 mmol/L (5-15) Blood Urea Nitrogen 12 mg/dL (7-18) Creatinine 0.6 MG/DL (0.55-1.30) Estimat Glomerular Filtration Rate mL/min (>60) Glucose Level 102 MG/DL (74-106) Calcium Level 9.3 MG/DL (8.5-10.1) Total Bilirubin 0.3 MG/DL (0.2-1.0) Aspartate Amino Transf (AST/SGOT) 12 U/L (15-37) Alanine Aminotransferase (ALT/SGPT) 12 U/L (12-78) Alkaline Phosphatase 98 U/L (46-116) Total Protein 7.1 G/DL (6.4-8.2) Albumin 2.4 G/DL (3.4-5.0) Globulin 4.7 g/dL Albumin/Globulin Ratio 0.5 (1.0-2.7) Test 03/17/18 04:00 Arterial Blood pH 7.328 (7.350-7.450) Arterial Blood Partial Pressure CO2 77.5 mmHg (35.0-45.0) Arterial Blood Partial Pressure O2 72.5 mmHg (75.0-100.0) Arterial Blood HCO3 39.0 mmol/L (22.0-26.0) Arterial Blood Oxygen Saturation 94.5 % (95-100) Arterial Blood Base Excess 10.7 (-2-2) Tarun Test Positive Objective: GENERAL: awake; no distress; on oxygen no distress; and on BIPAP NECK: Supple. No adenopathy. No jugular venous distention. LUNGS: Moderate breath sounds. no rhonchi. No wheezes. stable but reduced CARDIAC: S1 and S2. Regular rhythm without murmurs, rubs, or gallops. ABDOMEN: Soft, nontender, nondistended. no HSM; EXTREMITIES: No cyanosis, clubbing; trace edema. NEUROLOGIC: Grossly nonfocal, awake alert reviewed and examined Accucheck: 140 Mk Billings MD Mar 17, 2018 10:07
--- NOTE | 2018-03-17 10:30 | Urology Progress Note ---
Assessment/Plan Assessment/Plan 1. Gross hematuria, improved. 2. Urinary retention hx. 3. Probable neurogenic bladder. 4. Pyuria. 5. Proteinuria. 6. Possible hemorrhagic cystitis. monitor clinically no active bleeding s/p abx off anticoagulation, ok to resume if needed monitor h/h cysto later consider CT check urine cx PRN Subjective Allergies: Coded Allergies: No Known Allergies (Unverified , 12/10/15) Subjective all noted, resp distress, transferred to step down unit, bipap voiding, urine reported grossly yellow Objective Last 24 Hour Vital Signs Date Time Temp Pulse Resp B/P (MAP) Pulse Ox O2 Delivery O2 Flow Rate FiO2 03/17/18 09:20 104 148/72 03/17/18 08:51 104 19 98 Full Face 35 03/17/18 08:00 101 03/17/18 08:00 98.1 100 20 148/72 (97) 98 03/17/18 07:04 Bi-pap 30 03/17/18 07:04 90 27 99 Full Face 30 03/17/18 07:03 98 Bi-pap 30 03/17/18 05:27 92 30 98 Full Face 30 03/17/18 04:00 97.5 95 20 121/65 (83) 98 03/17/18 04:00 93 03/17/18 03:30 98 2.0 28 03/17/18 01:03 90 21 98 Full Face 30 03/17/18 00:00 98.0 94 22 127/67 (87) 97 03/17/18 00:00 94 03/16/18 23:11 93 23 100 Full Face 30 03/16/18 21:02 96 2.0 28 03/16/18 21:00 Bi-pap Bi-pap Bi-pap 03/16/18 20:00 93 03/16/18 20:00 98.5 96 24 130/63 (85) 96 03/16/18 19:30 Bi-pap 30 03/16/18 19:30 99 Bi-pap 30 03/16/18 19:30 92 18 99 Facial 30 03/16/18 17:40 81 24 99 Full Face 30 03/16/18 16:00 97.8 97 27 124/60 (81) 99 03/16/18 16:00 102 03/16/18 15:23 79 24 99 Full Face 30 03/16/18 13:54 81 23 98 Facial 30 03/16/18 12:00 Bi-pap Bi-pap Bi-pap 03/16/18 12:00 98 03/16/18 11:52 98.2 97 19 119/61 (80) 97 03/16/18 11:13 83 19 97 Facial 30 Intake and Output 03/16/18 03/17/18 19:00 07:00 Intake Total 500 ml Output Total 300 ml Balance 500 ml -300 ml Intake Oral 500 ml Output Urine Total 300 ml # Voids 1 Microbiology Date/Time Source Procedure Growth Status 02/03/18 15:30 Blood Blood Culture - Final NO GROWTH AFTER 5 DAYS Complete 02/20/18 18:40 Stool Clostridium difficile Toxin Assay - Final Complete 02/20/18 12:50 Urine,Clean Catch Urine Culture - Final NO GROWTH AFTER 48 HOURS Complete 02/03/18 15:30 Rectal Mucosa - Final NO CARBAPENEM-RESISTANT ENTEROBACTERI... Complete Current Medications Medications (Trade) Dose Ordered Sig/Isabella Route PRN Reason Start Time Stop Time Status Last Admin Dose Admin Acetaminophen (Tylenol) 650 mg Q6H PRN ORAL Mild Pain/Temp > 100.5 03/15/18 11:18 04/05/18 11:17 Bisacodyl (Dulcolax) 10 mg DAILYPRN PRN RECTAL Constipation 03/15/18 11:18 04/01/18 11:17 Clonidine HCl (Catapres Tab) 0.1 mg Q4H PRN ORAL SBP above 150 03/15/18 11:18 03/21/18 11:17 Diltiazem HCl (Cardizem CD) 240 mg DAILY ORAL 03/16/18 09:00 03/27/18 08:59 03/17/18 09:20 Diphenhydramine HCl (Benadryl) 25 mg Q6H PRN ORAL Itching 03/15/18 12:15 04/05/18 06:14 Methylprednisolone Sodium Succinate (Solu-MEDROL) 40 mg EVERY 12 HOURS IVP 03/17/18 21:00 04/16/18 20:59 Ondansetron HCl (Zofran) 4 mg Q4H PRN IVP Nausea & Vomiting 03/16/18 09:00 04/15/18 08:59 03/16/18 08:59 Pantoprazole (Protonix) 40 mg DAILY ORAL 03/16/18 09:00 03/29/18 08:59 03/17/18 09:21 Vitamin A/Vitamin D (A & D Oint) 1 applic EVERY 12 HOURS TOPIC 03/15/18 21:00 03/21/18 20:59 03/17/18 09:21 Laboratory Tests 03/17/18 04:00: Arterial Blood pH 7.328L, Arterial Blood Partial Pressure CO2 77.5*H, Arterial Blood Partial Pressure O2 72.5L, Arterial Blood HCO3 39.0H, Arterial Blood Oxygen Saturation 94.5L, Arterial Blood Base Excess 10.7*H, Tarun Test Positive Height (Feet): 5 Height (Inches): 6.00 Weight (Pounds): 214 Objective exam stable renal u/s (02/19) noted last CXR noted Spenser Marc MD Mar 17, 2018 10:30
[2018-03-17 12:33] VITALS: BP 132/61
[2018-03-17 16:00] VITALS: BP 122/66
[2018-03-17 20:00] VITALS: BP 127/65
[2018-03-17] MEDS: Solu-MEDROL 40mg Inj IVP SCH (20:51)
[2018-03-18] VITALS: BP 125/66
[2018-03-18 04:00] VITALS: BP 135/68
--- NOTE | 2018-03-18 07:52 | General Progress Note ---
Assessment/Plan Problem List: (1) COPD exacerbation ICD Codes: J44.1 - Chronic obstructive pulmonary disease with (acute) exacerbation SNOMED: 639797348 (2) HTN (hypertension) ICD Codes: I10 - Essential (primary) hypertension SNOMED: 07984058 (3) Hypoxia ICD Codes: R09.02 - Hypoxemia SNOMED: 878810453 (4) Elevated troponin ICD Codes: R74.8 - Abnormal levels of other serum enzymes SNOMED: 836120971, 527415765, 441843026 (5) Renal insufficiency ICD Codes: N28.9 - Disorder of kidney and ureter, unspecified SNOMED: 237557080, 882059632 (6) Respiratory failure ICD Codes: J96.90 - Respiratory failure, unspecified, unspecified whether with hypoxia or hypercapnia SNOMED: 691895049 Qualifiers: Qualified Codes: J96.02 - Acute respiratory failure with hypercapnia (7) Right lower lobe pneumonia ICD Codes: J18.1 - Lobar pneumonia, unspecified organism SNOMED: 373434922 Qualifiers: Qualified Codes: J18.1 - Lobar pneumonia, unspecified organism Assessment/Plan resp rx o2 continuous bipap keep dry monitor cxr monitor abg check labs Subjective ROS Limited/Unobtainable: No Constitutional: Reports: malaise, weakness HEENT: Reports: no symptoms Cardiovascular: Reports: no symptoms Respiratory: Reports: no symptoms Gastrointestinal/Abdominal: Reports: no symptoms Genitourinary: Reports: no symptoms Neurologic/Psychiatric: Reports: no symptoms Endocrine: Reports: no symptoms Hematologic/Lymphatic: Reports: no symptoms Allergies: Coded Allergies: No Known Allergies (Unverified , 12/10/15) All Systems: reviewed and negative except above Subjective no events. remains on bipap. Abg pending for today. alert. on steroids and resp rx. Objective Last 24 Hour Vital Signs Date Time Temp Pulse Resp B/P (MAP) Pulse Ox O2 Delivery O2 Flow Rate FiO2 03/18/18 05:10 84 20 99 2.0 28 03/18/18 04:00 97.7 96 18 135/68 (90) 99 03/18/18 04:00 94 03/18/18 03:30 88 20 98 Full Face 40 03/18/18 01:16 86 22 100 Full Face 40 03/18/18 00:00 90 03/18/18 00:00 98.1 86 18 125/66 (85) 100 03/17/18 22:57 88 19 100 Full Face 40 03/17/18 21:23 89 21 100 Full Face 40 03/17/18 21:00 Bi-pap Bi-pap Bi-pap 03/17/18 20:00 93 03/17/18 20:00 97.5 94 24 127/65 (85) 97 03/17/18 19:29 Bi-pap 30 03/17/18 19:29 96 28 99 Full Face 30 03/17/18 19:28 94 Bi-pap 35 03/17/18 16:58 105 25 99 Full Face 35 03/17/18 16:00 97.9 94 24 122/66 (84) 99 03/17/18 16:00 98 03/17/18 15:22 98 24 98 Full Face 35 03/17/18 12:43 95 19 100 2.0 28 03/17/18 12:33 97.7 99 22 132/61 (84) 99 03/17/18 12:00 102 03/17/18 10:34 97 21 98 Full Face 35 03/17/18 09:20 104 148/72 03/17/18 09:00 Bi-pap Bi-pap Bi-pap 03/17/18 08:51 104 19 98 Full Face 35 03/17/18 08:00 101 03/17/18 08:00 98.1 100 20 148/72 (97) 98 Intake and Output 03/17/18 03/18/18 18:59 06:59 Intake Total 300 ml 480 ml Output Total 200 ml 100 ml Balance 100 ml 380 ml Intake Oral 300 ml 480 ml Output Urine Total 200 ml 100 ml # Voids 1 Height (Feet): 5 Height (Inches): 6.00 Weight (Pounds): 228 Objective General Appearance: WD/WN, resting. on bipap, opens eyes. alert. follows commands Neck: supple Cardiovascular: regular rhythm Respiratory/Chest: lungs mostly clear, few rhonchi Abdomen: normal bowel sounds, non tender, soft, no organomegaly Edema: no edema noted Arm (L), no edema noted Arm (R), no edema noted Leg (L), no edema noted Leg (R), no edema noted Pedal (L), no edema noted Pedal (R), no edema noted Generalized [place]omoto,Manan M. MD Mar 18, 2018 07:52
[2018-03-18 08:00] VITALS: BP 138/75
--- NOTE | 2018-03-18 08:35 | Critical Care Progress Note ---
Assessment/Plan Assessment/Plan IMPRESSION: Acute on chronic respiratory failure, COPD with acute exacerbation, chronic respiratory acidosis and associated hypoxemia, cardiomegaly, pleural effusion and pulmonary edema, protein-calorie malnutrition. loculated pleural effusion likely PLAN exam reviewed and not improved still with CO2 retention respiratory care as is snf dc once stable; await pending further improvement BIPAP continuous for now with Co2 acute retention- hope to avoid intubation guarded nutrition DVT prophylaxis monitor acid base and repeat ABG for change defer dc with acute retention as patient at risk for intubation medications/laboratory data/nursing notes reviewed in detail note reviewed and edited care discussed with RN and RT Critical Care - Subjective Interval Events: care noted and reviewed acid base noted I&O: Intake and Output 03/17/18 03/18/18 18:59 06:59 Intake Total 300 ml 480 ml Output Total 200 ml 100 ml Balance 100 ml 380 ml Intake Oral 300 ml 480 ml Output Urine Total 200 ml 100 ml # Voids 1 Critical Care - Objective CXR: lili frontal view demonstrates a normal cardiomediastinal silhouette. Stable opacity within the left lower lung zone. No pleural effusions. The visualized osseous structures are within normal limits. Atherosclerotic vascular disease. ET-Tube: 7.5 ET Position: 24 Last 24 Hour Vital Signs Date Time Temp Pulse Resp B/P (MAP) Pulse Ox O2 Delivery O2 Flow Rate FiO2 03/18/18 05:10 84 20 99 2.0 28 03/18/18 04:00 97.7 96 18 135/68 (90) 99 03/18/18 04:00 94 03/18/18 03:30 88 20 98 Full Face 40 03/18/18 01:16 86 22 100 Full Face 40 03/18/18 00:00 90 03/18/18 00:00 98.1 86 18 125/66 (85) 100 03/17/18 22:57 88 19 100 Full Face 40 03/17/18 21:23 89 21 100 Full Face 40 03/17/18 21:00 Bi-pap Bi-pap Bi-pap 03/17/18 20:00 93 03/17/18 20:00 97.5 94 24 127/65 (85) 97 03/17/18 19:29 Bi-pap 30 03/17/18 19:29 96 28 99 Full Face 30 03/17/18 19:28 94 Bi-pap 35 03/17/18 16:58 105 25 99 Full Face 35 03/17/18 16:00 97.9 94 24 122/66 (84) 99 03/17/18 16:00 98 03/17/18 15:22 98 24 98 Full Face 35 03/17/18 12:43 95 19 100 2.0 28 03/17/18 12:33 97.7 99 22 132/61 (84) 99 03/17/18 12:00 102 03/17/18 10:34 97 21 98 Full Face 35 03/17/18 09:20 104 148/72 03/17/18 09:00 Bi-pap Bi-pap Bi-pap 03/17/18 08:51 104 19 98 Full Face 35 Labs: Labs Test 03/15/18 09:45 03/16/18 08:40 03/16/18 09:20 03/17/18 04:00 Arterial Blood pH 7.275 (7.350-7.450) 7.308 (7.350-7.450) 7.328 (7.350-7.450) Arterial Blood Partial Pressure CO2 89.2 mmHg (35.0-45.0) 80.7 mmHg (35.0-45.0) 77.5 mmHg (35.0-45.0) Arterial Blood Partial Pressure O2 79.4 mmHg (75.0-100.0) 91.8 mmHg (75.0-100.0) 72.5 mmHg (75.0-100.0) Arterial Blood HCO3 40.5 mmol/L (22.0-26.0) 39.5 mmol/L (22.0-26.0) 39.0 mmol/L (22.0-26.0) Arterial Blood Oxygen Saturation 94.5 % (95-100) 91.8 % (95-100) 94.5 % (95-100) Arterial Blood Base Excess 10.3 (-2-2) 10 (-2-2) 10.7 (-2-2) Tarun Test Positive Positive Positive White Blood Count 7.3 K/UL (4.8-10.8) Red Blood Count 4.49 M/UL (4.20-5.40) Hemoglobin 12.7 G/DL (12.0-16.0) Hematocrit 41.8 % (37.0-47.0) Mean Corpuscular Volume 93 FL (80-99) Mean Corpuscular Hemoglobin 28.2 PG (27.0-31.0) Mean Corpuscular Hemoglobin Concent 30.3 G/DL (32.0-36.0) Red Cell Distribution Width 14.9 % (11.6-14.8) Platelet Count 292 K/UL (150-450) Mean Platelet Volume 6.1 FL (6.5-10.1) Neutrophils (%) (Auto) 58.0 % (45.0-75.0) Lymphocytes (%) (Auto) 24.6 % (20.0-45.0) Monocytes (%) (Auto) 8.2 % (1.0-10.0) Eosinophils (%) (Auto) 7.9 % (0.0-3.0) Basophils (%) (Auto) 1.2 % (0.0-2.0) Sodium Level 143 MMOL/L (136-145) Potassium Level 4.3 MMOL/L (3.5-5.1) Chloride Level 99 MMOL/L (98-107) Carbon Dioxide Level 35 MMOL/L (21-32) Anion Gap 9 mmol/L (5-15) Blood Urea Nitrogen 12 mg/dL (7-18) Creatinine 0.6 MG/DL (0.55-1.30) Estimat Glomerular Filtration Rate mL/min (>60) Glucose Level 102 MG/DL (74-106) Calcium Level 9.3 MG/DL (8.5-10.1) Total Bilirubin 0.3 MG/DL (0.2-1.0) Aspartate Amino Transf (AST/SGOT) 12 U/L (15-37) Alanine Aminotransferase (ALT/SGPT) 12 U/L (12-78) Alkaline Phosphatase 98 U/L (46-116) Total Protein 7.1 G/DL (6.4-8.2) Albumin 2.4 G/DL (3.4-5.0) Globulin 4.7 g/dL Albumin/Globulin Ratio 0.5 (1.0-2.7) Test 03/18/18 08:15 Objective: GENERAL: awake; no distress; on oxygen no distress; and on BIPAP; loc noted NECK: Supple. No adenopathy. No jugular venous distention. LUNGS: Moderate breath sounds. no rhonchi. No wheezes. stable but reduced CARDIAC: S1 and S2. Regular rhythm without murmurs, rubs, or gallops. ABDOMEN: Soft, nontender, nondistended. no HSM; EXTREMITIES: No cyanosis, clubbing; trace edema. NEUROLOGIC: Grossly nonfocal, awake alert reviewed and examined Accucheck: 140 Mk Billings MD Mar 18, 2018 08:35
[2018-03-18 08:36] LABS: HEMATOCRIT 41.3 % (37.0-47.0); HEMOGLOBIN 12.4 G/DL (12.0-16.0); MEAN CORPUSCULAR VOLUME 93 FL (80-99); PLATELET COUNT 299 K/UL (150-450); RED BLOOD COUNT 4.45 M/UL (4.20-5.40); RED CELL DISTRIBUTION WIDTH 14.9 % (11.6-14.8); WHITE BLOOD COUNT 6.6 K/UL (4.8-10.8)
[2018-03-18] MEDS: Vitamin A&D Oint 2oz Tube TOPIC SCH ×2 (08:48→21:04)
[2018-03-18] MEDS: Solu-MEDROL 40mg Inj IVP SCH ×2 (08:48→21:04)
[2018-03-18] MEDS: dilTIAZem HCl CD 240mg cap ORAL SCH (08:48)
--- NOTE | 2018-03-18 09:02 | Urology Progress Note ---
Assessment/Plan Assessment/Plan 1. Gross hematuria, improved. 2. Urinary retention hx. 3. Probable neurogenic bladder. 4. Pyuria. 5. Proteinuria. 6. Possible hemorrhagic cystitis. monitor clinically no active bleeding s/p abx off anticoagulation, ok to resume if needed monitor h/h cysto later consider CT check urine cx PRN Subjective Allergies: Coded Allergies: No Known Allergies (Unverified , 12/10/15) Subjective all noted, feels fair, urine reported grossly clear Objective Last 24 Hour Vital Signs Date Time Temp Pulse Resp B/P (MAP) Pulse Ox O2 Delivery O2 Flow Rate FiO2 03/18/18 08:48 96 138/75 03/18/18 08:00 97.9 96 18 138/75 (96) 98 03/18/18 05:10 84 20 99 2.0 28 03/18/18 04:00 97.7 96 18 135/68 (90) 99 03/18/18 04:00 94 03/18/18 03:30 88 20 98 Full Face 40 03/18/18 01:16 86 22 100 Full Face 40 03/18/18 00:00 90 03/18/18 00:00 98.1 86 18 125/66 (85) 100 03/17/18 22:57 88 19 100 Full Face 40 03/17/18 21:23 89 21 100 Full Face 40 03/17/18 21:00 Bi-pap Bi-pap Bi-pap 03/17/18 20:00 93 03/17/18 20:00 97.5 94 24 127/65 (85) 97 03/17/18 19:29 Bi-pap 30 03/17/18 19:29 96 28 99 Full Face 30 03/17/18 19:28 94 Bi-pap 35 03/17/18 16:58 105 25 99 Full Face 35 03/17/18 16:00 97.9 94 24 122/66 (84) 99 03/17/18 16:00 98 03/17/18 15:22 98 24 98 Full Face 35 03/17/18 12:43 95 19 100 2.0 28 03/17/18 12:33 97.7 99 22 132/61 (84) 99 03/17/18 12:00 102 03/17/18 10:34 97 21 98 Full Face 35 03/17/18 09:20 104 148/72 Intake and Output 03/17/18 03/18/18 18:59 06:59 Intake Total 300 ml 480 ml Output Total 200 ml 100 ml Balance 100 ml 380 ml Intake Oral 300 ml 480 ml Output Urine Total 200 ml 100 ml # Voids 1 Microbiology Date/Time Source Procedure Growth Status 02/03/18 15:30 Blood Blood Culture - Final NO GROWTH AFTER 5 DAYS Complete 02/20/18 18:40 Stool Clostridium difficile Toxin Assay - Final Complete 02/20/18 12:50 Urine,Clean Catch Urine Culture - Final NO GROWTH AFTER 48 HOURS Complete 02/03/18 15:30 Rectal Mucosa - Final NO CARBAPENEM-RESISTANT ENTEROBACTERI... Complete Current Medications Medications (Trade) Dose Ordered Sig/Isabella Route PRN Reason Start Time Stop Time Status Last Admin Dose Admin Acetaminophen (Tylenol) 650 mg Q6H PRN ORAL Mild Pain/Temp > 100.5 03/15/18 11:18 04/05/18 11:17 Bisacodyl (Dulcolax) 10 mg DAILYPRN PRN RECTAL Constipation 03/15/18 11:18 04/01/18 11:17 03/18/18 08:49 Clonidine HCl (Catapres Tab) 0.1 mg Q4H PRN ORAL SBP above 150 03/15/18 11:18 03/21/18 11:17 Diltiazem HCl (Cardizem CD) 240 mg DAILY ORAL 03/16/18 09:00 03/27/18 08:59 03/18/18 08:48 Diphenhydramine HCl (Benadryl) 25 mg Q6H PRN ORAL Itching 03/15/18 12:15 04/05/18 06:14 03/18/18 06:10 Methylprednisolone Sodium Succinate (Solu-MEDROL) 40 mg EVERY 12 HOURS IVP 03/17/18 21:00 04/16/18 20:59 03/18/18 08:48 Ondansetron HCl (Zofran) 4 mg Q4H PRN IVP Nausea & Vomiting 03/16/18 09:00 04/15/18 08:59 03/16/18 08:59 Pantoprazole (Protonix) 40 mg DAILY ORAL 03/16/18 09:00 03/29/18 08:59 03/18/18 08:48 Vitamin A/Vitamin D (A & D Oint) 1 applic EVERY 12 HOURS TOPIC 03/15/18 21:00 03/21/18 20:59 03/18/18 08:48 Laboratory Tests 03/18/18 08:15: White Blood Count 6.6, Red Blood Count 4.45, Hemoglobin 12.4, Hematocrit 41.3, Mean Corpuscular Volume 93, Mean Corpuscular Hemoglobin 27.9, Mean Corpuscular Hemoglobin Concent 30.0L, Red Cell Distribution Width 14.9H, Platelet Count 299 , Mean Platelet Volume 6.4L, Neutrophils (%) (Auto) , Lymphocytes (%) (Auto) , Monocytes (%) (Auto) , Eosinophils (%) (Auto) , Basophils (%) (Auto) , Neutrophils % (Manual) [Pending], Lymphocytes % (Manual) [Pending], Platelet Estimate [Pending], Platelet Morphology [Pending], Sodium Level [Pending], Potassium Level [Pending], Chloride Level [Pending], Carbon Dioxide Level [ Pending], Blood Urea Nitrogen [Pending], Creatinine [Pending], Estimat Glomerular Filtration Rate [Pending], Glucose Level [Pending], Calcium Level [ Pending], Total Bilirubin [Pending], Aspartate Amino Transf (AST/SGOT) [Pending] , Alanine Aminotransferase (ALT/SGPT) [Pending], Alkaline Phosphatase [Pending] , Total Protein [Pending], Albumin [Pending], Globulin [Pending] Height (Feet): 5 Height (Inches): 6.00 Weight (Pounds): 228 Objective exam stable renal u/s (02/19) noted last CXR noted Spenser Marc MD Mar 18, 2018 09:02
[2018-03-18 09:09] LABS: ANION GAP 3 mmol/L (5-15); CARBON DIOXIDE 39 MMOL/L (21-32); CHLORIDE 97 MMOL/L (98-107); POTASSIUM 4.7 MMOL/L (3.5-5.1); SODIUM 138 MMOL/L (136-145)
[2018-03-18 09:11] LABS: ALANINE AMINOTRANSFERASE 8 U/L (12-78); ALBUMIN 2.4 G/DL (3.4-5.0); ALBUMIN/GLOBULIN RATIO 0.5 (1.0-2.7); ASPARTATE AMINO TRANSFERASE 12 U/L (15-37); BILIRUBIN,TOTAL 0.3 MG/DL (0.2-1.0); BLOOD UREA NITROGEN 12 mg/dL (7-18); CALCIUM 9.2 MG/DL (8.5-10.1); CREATININE 0.6 MG/DL (0.55-1.30)
[2018-03-18 09:12] LABS: ALKALINE PHOSPHATASE 101 U/L (46-116)
[2018-03-18 12:00] VITALS: BP 144/84
[2018-03-18 16:00] VITALS: BP 126/70
[2018-03-18 20:00] VITALS: BP 120/62
--- NOTE | 2018-03-18 22:00 | Progress Note ---
DATE: 03/18/2018 CARDIOLOGY PROGRESS NOTE SUBJECTIVE: Status unchanged. No new complaints. OBJECTIVE: VITAL SIGNS: Revealed blood pressure 126/70, heart rate 92, and respiratory rate 18. Monitored rhythm, sinus. LUNGS: Coarse breath sounds. No wheezing. HEART: Regular rhythm rate. Normal S1, S2. ABDOMEN: Soft. EXTREMITIES: Trace edema. DIAGNOSTIC DATA: Chest x-ray yesterday revealed persisting left lower lobe infiltrate. ABG, pH 7.32, pCO2 87, and pO2 102. White count 6.6 and hemoglobin 12.4. Sodium 138, potassium 4.7, bicarb 39, BUN 12, and creatinine 0.6. Albumin 2.4. IMPRESSION: 1. Acute on chronic respiratory acidosis with compensatory metabolic alkalosis. 2. Respiratory failure requiring BiPAP. 3. Healthcare-acquired pneumonia. 4. Status post myocardial infarction. 5. Resolved pulmonary edema. 6. Protein-calorie malnutrition. 7. Severe chronic obstructive pulmonary disease. 8. Paroxysmal atrial ectopy PLAN: 1. Steroids with taper. 2. BiPAP support. 3. Bronchodilators. 4. DVT prophylaxis. 5. Follow up BMP. 6. Monitor chemistry panel. 7. Consider acetazolamide for worsening alkalosis. 8. The patient remains high risk. 9. Continue diltiazem. Ashvin Wu M.D. DR: COOPER JOB#: [id number] CC:
--- NOTE | 2018-03-18 22:00 | Progress Note ---
DATE: 03/17/2018 CARDIOLOGY PROGRESS NOTE Late entry for March 17, 2018 SUBJECTIVE: The patient remains on the BiPAP support. During the night, she is on steroids and respiratory therapy. PHYSICAL EXAMINATION: VITAL SIGNS: Blood pressure 121/65, heart rate 95, respiratory rate 20. She is afebrile. LUNGS: Coarse breath sounds. No wheezing. HEART: Regular rhythm and rate. Normal S1, S2. ABDOMEN: Soft. EXTREMITIES: No edema. LABORATORY AND DIAGNOSTIC DATA: No new laboratories today. ABG, pH 7.33, 27, 72. IMPRESSION: 1. Acute on chronic respiratory acidosis. 2. Respiratory failure. 3. COPD. 4. Chronic diastolic congestive heart failure. 5. Paroxysmal atrial ectopy. 6. Status post myocardial infarction precipitated by severe respiratory insufficiency. PLAN: 1. Continue respiratory hygiene. 2. Steroids with taper as able. 3. BiPAP support. 4. Antiplatelet therapy. 5. DVT prophylaxis. 6. Follow up lab studies. Ashvin Wu M.D. DR: Jazlyn JOB#: [id number] CC:
[2018-03-19] VITALS: BP 140/82
[2018-03-19 04:00] VITALS: BP 117/78
[2018-03-19 05:43] LABS: ALANINE AMINOTRANSFERASE 13 U/L (12-78); ALBUMIN 2.3 G/DL (3.4-5.0); ALBUMIN/GLOBULIN RATIO 0.5 (1.0-2.7); ALKALINE PHOSPHATASE 92 U/L (46-116); ANION GAP 0 mmol/L (5-15); ASPARTATE AMINO TRANSFERASE 9 U/L (15-37); BILIRUBIN,TOTAL < 0.1 MG/DL (0.2-1.0); BLOOD UREA NITROGEN 13 mg/dL (7-18); CALCIUM 9.3 MG/DL (8.5-10.1); CHLORIDE 99 MMOL/L (98-107); CREATININE 0.6 MG/DL (0.55-1.30); POTASSIUM 4.8 MMOL/L (3.5-5.1); SODIUM 140 MMOL/L (136-145)
[2018-03-19 06:05] LABS: CARBON DIOXIDE 40 MMOL/L (21-32)
[2018-03-19 08:00] VITALS: BP 133/65
--- NOTE | 2018-03-19 08:35 | General Progress Note ---
Assessment/Plan Problem List: (1) COPD exacerbation ICD Codes: J44.1 - Chronic obstructive pulmonary disease with (acute) exacerbation SNOMED: 731903996 (2) HTN (hypertension) ICD Codes: I10 - Essential (primary) hypertension SNOMED: 16640207 (3) Hypoxia ICD Codes: R09.02 - Hypoxemia SNOMED: 643304598 (4) Elevated troponin ICD Codes: R74.8 - Abnormal levels of other serum enzymes SNOMED: 493406144, 900816780, 039499650 (5) Renal insufficiency ICD Codes: N28.9 - Disorder of kidney and ureter, unspecified SNOMED: 056187353, 391965648 (6) Respiratory failure ICD Codes: J96.90 - Respiratory failure, unspecified, unspecified whether with hypoxia or hypercapnia SNOMED: 850161240 Qualifiers: Qualified Codes: J96.02 - Acute respiratory failure with hypercapnia (7) Right lower lobe pneumonia ICD Codes: J18.1 - Lobar pneumonia, unspecified organism SNOMED: 056985786 Qualifiers: Qualified Codes: J18.1 - Lobar pneumonia, unspecified organism Status: stable, not improved Assessment/Plan resp rx o2 continuous bipap follow up abg from today keep dry monitor cxr no ready for dc Subjective ROS Limited/Unobtainable: No Constitutional: Reports: malaise, weakness HEENT: Reports: no symptoms Cardiovascular: Reports: no symptoms Respiratory: Reports: cough, shortness of breath Gastrointestinal/Abdominal: Reports: no symptoms Genitourinary: Reports: no symptoms Neurologic/Psychiatric: Reports: anxiety, pre-existing deficit Endocrine: Reports: no symptoms Hematologic/Lymphatic: Reports: anemia Allergies: Coded Allergies: No Known Allergies (Unverified , 12/10/15) All Systems: reviewed and negative except above Subjective no events. remains on bipap. Abg pending for today. Co2 higher yesterday. compliant with rx. not eating well. labs noted Objective Last 24 Hour Vital Signs Date Time Temp Pulse Resp B/P (MAP) Pulse Ox O2 Delivery O2 Flow Rate FiO2 03/19/18 08:03 40 03/19/18 08:00 40 03/19/18 08:00 97.9 98 16 133/65 (87) 100 03/19/18 07:11 84 18 100 Full Face 40 03/19/18 07:10 100 Bi-pap 40 03/19/18 07:10 Bi-pap 40 03/19/18 05:20 87 18 99 Full Face 40 03/19/18 04:00 Bi-pap Bi-pap Bi-pap 03/19/18 04:00 84 03/19/18 04:00 40 03/19/18 04:00 98.5 82 18 117/78 (91) 100 03/19/18 03:13 91 17 99 Full Face 40 03/19/18 01:12 95 16 98 Full Face 40 03/19/18 00:00 Bi-pap Bi-pap Bi-pap 03/19/18 00:00 98.5 93 22 140/82 (101) 100 03/19/18 00:00 85 03/19/18 00:00 40 03/18/18 22:45 92 16 98 Full Face 40 03/18/18 21:28 98 20 96 2.0 28 03/18/18 20:00 116 03/18/18 20:00 98.1 90 20 120/62 (81) 100 03/18/18 20:00 Nasal Cannula 3.0 Nasal Cannula 3.0 Nasal Cannula 3.0 03/18/18 20:00 40 03/18/18 19:44 98 20 98 2.0 28 03/18/18 19:06 Nasal Cannula 3.0 32 03/18/18 19:05 98 Nasal Cannula 3.0 32 03/18/18 17:49 84 20 99 2.0 28 03/18/18 17:00 84 20 99 2.0 28 03/18/18 16:00 92 03/18/18 16:00 98.1 89 18 126/70 (88) 100 03/18/18 16:00 Nasal Cannula 3.0 Nasal Cannula 3.0 Nasal Cannula 3.0 03/18/18 15:00 84 20 99 2.0 28 03/18/18 13:00 84 20 99 2.0 28 03/18/18 12:00 Nasal Cannula 3.0 Nasal Cannula 3.0 Nasal Cannula 3.0 03/18/18 12:00 97.9 88 18 144/84 (104) 100 03/18/18 12:00 93 03/18/18 11:00 84 20 99 2.0 28 03/18/18 08:48 96 138/75 Intake and Output 03/18/18 03/19/18 18:59 06:59 Intake Total 240 ml Output Total 200 ml 200 ml Balance 40 ml -200 ml Intake Oral 240 ml Output Urine Total 200 ml 200 ml # Bowel Movements 2 Laboratory Tests 03/18/18 09:13: Arterial Blood pH 7.315L, Arterial Blood Partial Pressure CO2 87.0*H, Arterial Blood Partial Pressure O2 102.5H, Arterial Blood HCO3 43.3*H, Arterial Blood Oxygen Saturation 97.0, Arterial Blood Base Excess 13.2*H, Tarun Test [Pending] 03/19/18 03:35: Sodium Level 140, Potassium Level 4.8, Chloride Level 99, Carbon Dioxide Level 40H, Anion Gap 0L, Blood Urea Nitrogen 13, Creatinine 0.6, Estimat Glomerular Filtration Rate , Glucose Level 147H, Calcium Level 9.3, Magnesium Level 1.7L, Total Bilirubin < 0.1L, Aspartate Amino Transf (AST/SGOT) 9L, Alanine Aminotransferase (ALT/SGPT) 13, Alkaline Phosphatase 92, Pro-B-Type Natriuretic Peptide 320H, Total Protein 7.1, Albumin 2.3L, Globulin 4.8, Albumin/Globulin Ratio 0.5L Height (Feet): 5 Height (Inches): 6.00 Weight (Pounds): 224 Objective General Appearance: WD/WN, resting. on bipap, opens eyes. alert. follows commands Neck: supple Cardiovascular: regular rhythm Respiratory/Chest: lungs mostly clear, few rhonchi Abdomen: normal bowel sounds, non tender, soft, no organomegaly Edema: no edema noted Arm (L), no edema noted Arm (R), no edema noted Leg (L), no edema noted Leg (R), no edema noted Pedal (L), no edema noted Pedal (R), no edema noted Generalized Manan Byrd MD Mar 19, 2018 08:35
--- NOTE | 2018-03-19 08:42 | Critical Care Progress Note ---
Assessment/Plan Assessment/Plan IMPRESSION: Acute on chronic respiratory failure, COPD with acute exacerbation, chronic respiratory acidosis and associated hypoxemia, cardiomegaly, pleural effusion and pulmonary edema, protein-calorie malnutrition. loculated pleural effusion likely PLAN exam reviewed and not improved still with CO2 retention and worsening respiratory care - repeat ABG BIPAP continuous for now with Co2 acute retention- hope to avoid intubation but may be needed keep in RAMSES guarded nutrition DVT prophylaxis monitor acid base and repeat ABG for change defer dc with acute retention as patient at risk for intubation medications/laboratory data/nursing notes reviewed in detail note reviewed and edited care discussed with RN and RT Critical Care - Subjective Condition: stable EKG Rhythm: Sinus Rhythm I&O: Intake and Output 03/18/18 03/19/18 18:59 06:59 Intake Total 240 ml Output Total 200 ml 200 ml Balance 40 ml -200 ml Intake Oral 240 ml Output Urine Total 200 ml 200 ml # Bowel Movements 2 Critical Care - Objective ET-Tube: 7.5 ET Position: 24 Last 24 Hour Vital Signs Date Time Temp Pulse Resp B/P (MAP) Pulse Ox O2 Delivery O2 Flow Rate FiO2 03/19/18 08:03 40 03/19/18 08:00 40 03/19/18 08:00 97.9 98 16 133/65 (87) 100 03/19/18 07:11 84 18 100 Full Face 40 03/19/18 07:10 100 Bi-pap 40 03/19/18 07:10 Bi-pap 40 03/19/18 05:20 87 18 99 Full Face 40 03/19/18 04:00 Bi-pap Bi-pap Bi-pap 03/19/18 04:00 84 03/19/18 04:00 40 03/19/18 04:00 98.5 82 18 117/78 (91) 100 03/19/18 03:13 91 17 99 Full Face 40 03/19/18 01:12 95 16 98 Full Face 40 03/19/18 00:00 Bi-pap Bi-pap Bi-pap 03/19/18 00:00 98.5 93 22 140/82 (101) 100 03/19/18 00:00 85 03/19/18 00:00 40 03/18/18 22:45 92 16 98 Full Face 40 03/18/18 21:28 98 20 96 2.0 28 03/18/18 20:00 116 03/18/18 20:00 98.1 90 20 120/62 (81) 100 03/18/18 20:00 Nasal Cannula 3.0 Nasal Cannula 3.0 Nasal Cannula 3.0 03/18/18 20:00 40 03/18/18 19:44 98 20 98 2.0 28 03/18/18 19:06 Nasal Cannula 3.0 32 03/18/18 19:05 98 Nasal Cannula 3.0 32 03/18/18 17:49 84 20 99 2.0 28 03/18/18 17:00 84 20 99 2.0 28 03/18/18 16:00 92 03/18/18 16:00 98.1 89 18 126/70 (88) 100 03/18/18 16:00 Nasal Cannula 3.0 Nasal Cannula 3.0 Nasal Cannula 3.0 03/18/18 15:00 84 20 99 2.0 28 03/18/18 13:00 84 20 99 2.0 28 03/18/18 12:00 Nasal Cannula 3.0 Nasal Cannula 3.0 Nasal Cannula 3.0 03/18/18 12:00 97.9 88 18 144/84 (104) 100 03/18/18 12:00 93 03/18/18 11:00 84 20 99 2.0 28 03/18/18 08:48 96 138/75 Labs: Labs Test 03/16/18 09:20 03/17/18 04:00 03/18/18 08:15 03/18/18 09:13 Arterial Blood pH 7.308 (7.350-7.450) 7.328 (7.350-7.450) 7.315 (7.350-7.450) Arterial Blood Partial Pressure CO2 80.7 mmHg (35.0-45.0) 77.5 mmHg (35.0-45.0) 87.0 mmHg (35.0-45.0) Arterial Blood Partial Pressure O2 91.8 mmHg (75.0-100.0) 72.5 mmHg (75.0-100.0) 102.5 mmHg (75.0-100.0) Arterial Blood HCO3 39.5 mmol/L (22.0-26.0) 39.0 mmol/L (22.0-26.0) 43.3 mmol/L (22.0-26.0) Arterial Blood Oxygen Saturation 91.8 % (95-100) 94.5 % (95-100) 97.0 % (95-100) Arterial Blood Base Excess 10 (-2-2) 10.7 (-2-2) 13.2 (-2-2) Tarun Test Positive Positive White Blood Count 6.6 K/UL (4.8-10.8) Red Blood Count 4.45 M/UL (4.20-5.40) Hemoglobin 12.4 G/DL (12.0-16.0) Hematocrit 41.3 % (37.0-47.0) Mean Corpuscular Volume 93 FL (80-99) Mean Corpuscular Hemoglobin 27.9 PG (27.0-31.0) Mean Corpuscular Hemoglobin Concent 30.0 G/DL (32.0-36.0) Red Cell Distribution Width 14.9 % (11.6-14.8) Platelet Count 299 K/UL (150-450) Mean Platelet Volume 6.4 FL (6.5-10.1) Neutrophils (%) (Auto) % (45.0-75.0) Lymphocytes (%) (Auto) % (20.0-45.0) Monocytes (%) (Auto) % (1.0-10.0) Eosinophils (%) (Auto) % (0.0-3.0) Basophils (%) (Auto) % (0.0-2.0) Differential Total Cells Counted 100 Neutrophils % (Manual) 84 % (45-75) Lymphocytes % (Manual) 10 % (20-45) Monocytes % (Manual) 6 % (1-10) Eosinophils % (Manual) 0 % (0-3) Basophils % (Manual) 0 % (0-2) Band Neutrophils 0 % (0-8) Platelet Estimate Adequate Platelet Morphology Normal Sodium Level 138 MMOL/L (136-145) Potassium Level 4.7 MMOL/L (3.5-5.1) Chloride Level 97 MMOL/L (98-107) Carbon Dioxide Level 39 MMOL/L (21-32) Anion Gap 3 mmol/L (5-15) Blood Urea Nitrogen 12 mg/dL (7-18) Creatinine 0.6 MG/DL (0.55-1.30) Estimat Glomerular Filtration Rate mL/min (>60) Glucose Level 205 MG/DL (74-106) Calcium Level 9.2 MG/DL (8.5-10.1) Total Bilirubin 0.3 MG/DL (0.2-1.0) Aspartate Amino Transf (AST/SGOT) 12 U/L (15-37) Alanine Aminotransferase (ALT/SGPT) 8 U/L (12-78) Alkaline Phosphatase 101 U/L (46-116) Total Protein 7.5 G/DL (6.4-8.2) Albumin 2.4 G/DL (3.4-5.0) Globulin 5.1 g/dL Albumin/Globulin Ratio 0.5 (1.0-2.7) Test 03/19/18 03:35 Sodium Level 140 MMOL/L (136-145) Potassium Level 4.8 MMOL/L (3.5-5.1) Chloride Level 99 MMOL/L (98-107) Carbon Dioxide Level 40 MMOL/L (21-32) Anion Gap 0 mmol/L (5-15) Blood Urea Nitrogen 13 mg/dL (7-18) Creatinine 0.6 MG/DL (0.55-1.30) Estimat Glomerular Filtration Rate mL/min (>60) Glucose Level 147 MG/DL (74-106) Calcium Level 9.3 MG/DL (8.5-10.1) Magnesium Level 1.7 MG/DL (1.8-2.4) Total Bilirubin < 0.1 MG/DL (0.2-1.0) Aspartate Amino Transf (AST/SGOT) 9 U/L (15-37) Alanine Aminotransferase (ALT/SGPT) 13 U/L (12-78) Alkaline Phosphatase 92 U/L (46-116) Pro-B-Type Natriuretic Peptide 320 pg/mL (0-125) Total Protein 7.1 G/DL (6.4-8.2) Albumin 2.3 G/DL (3.4-5.0) Globulin 4.8 g/dL Albumin/Globulin Ratio 0.5 (1.0-2.7) Objective: GENERAL: awake; no distress; on oxygen no distress; comfortable NECK: Supple. No adenopathy. No jugular venous distention. LUNGS: Moderate breath sounds. no rhonchi. No wheezes. stable but reduced CARDIAC: S1 and S2. Regular rhythm without murmurs, rubs, or gallops. ABDOMEN: Soft, nontender, nondistended. no HSM; EXTREMITIES: No cyanosis, clubbing; trace edema. NEUROLOGIC: Grossly nonfocal, awake alert reviewed and examined Accucheck: 140 Mk Billings MD Mar 19, 2018 08:42
[2018-03-19] MEDS: dilTIAZem HCl CD 240mg cap ORAL SCH (09:25)
[2018-03-19] MEDS: Vitamin A&D Oint 2oz Tube TOPIC SCH ×2 (09:25→21:06)
[2018-03-19] MEDS: Solu-MEDROL 40mg Inj IVP SCH ×2 (09:26→21:05)
--- NOTE | 2018-03-19 10:41 | Urology Progress Note ---
Assessment/Plan Assessment/Plan 1. Gross hematuria, improved. 2. Urinary retention hx. 3. Probable neurogenic bladder. 4. Pyuria. 5. Proteinuria. 6. Possible hemorrhagic cystitis. monitor clinically no active bleeding s/p abx off anticoagulation, ok to resume if needed monitor h/h cysto later consider CT check urine cx PRN Subjective Allergies: Coded Allergies: No Known Allergies (Unverified , 12/10/15) Subjective all noted, feels fair, urine reported grossly clear Objective Last 24 Hour Vital Signs Date Time Temp Pulse Resp B/P (MAP) Pulse Ox O2 Delivery O2 Flow Rate FiO2 03/19/18 09:25 98 133/65 03/19/18 08:03 40 03/19/18 08:00 40 03/19/18 08:00 97.9 98 16 133/65 (87) 100 03/19/18 08:00 Bi-pap Bi-pap Bi-pap 03/19/18 07:11 84 18 100 Full Face 40 03/19/18 07:10 100 Bi-pap 40 03/19/18 07:10 Bi-pap 40 03/19/18 05:20 87 18 99 Full Face 40 03/19/18 04:00 Bi-pap Bi-pap Bi-pap 03/19/18 04:00 84 03/19/18 04:00 40 03/19/18 04:00 98.5 82 18 117/78 (91) 100 03/19/18 03:13 91 17 99 Full Face 40 03/19/18 01:12 95 16 98 Full Face 40 03/19/18 00:00 Bi-pap Bi-pap Bi-pap 03/19/18 00:00 98.5 93 22 140/82 (101) 100 03/19/18 00:00 85 03/19/18 00:00 40 03/18/18 22:45 92 16 98 Full Face 40 03/18/18 21:28 98 20 96 2.0 28 03/18/18 20:00 116 03/18/18 20:00 98.1 90 20 120/62 (81) 100 03/18/18 20:00 Nasal Cannula 3.0 Nasal Cannula 3.0 Nasal Cannula 3.0 03/18/18 20:00 40 03/18/18 19:44 98 20 98 2.0 28 03/18/18 19:06 Nasal Cannula 3.0 32 11/19/18 19:05 98 Nasal Cannula 3.0 32 03/18/18 17:49 84 20 99 2.0 28 03/18/18 17:00 84 20 99 2.0 28 03/18/18 16:00 92 03/18/18 16:00 98.1 89 18 126/70 (88) 100 03/18/18 16:00 Nasal Cannula 3.0 Nasal Cannula 3.0 Nasal Cannula 3.0 03/18/18 15:00 84 20 99 2.0 28 03/18/18 13:00 84 20 99 2.0 28 03/18/18 12:00 Nasal Cannula 3.0 Nasal Cannula 3.0 Nasal Cannula 3.0 03/18/18 12:00 97.9 88 18 144/84 (104) 100 03/18/18 12:00 93 03/18/18 11:00 84 20 99 2.0 28 Intake and Output 03/18/18 03/19/18 18:59 06:59 Intake Total 240 ml Output Total 200 ml 200 ml Balance 40 ml -200 ml Intake Oral 240 ml Output Urine Total 200 ml 200 ml # Bowel Movements 2 Microbiology Date/Time Source Procedure Growth Status 02/03/18 15:30 Blood Blood Culture - Final NO GROWTH AFTER 5 DAYS Complete 02/20/18 18:40 Stool Clostridium difficile Toxin Assay - Final Complete 02/20/18 12:50 Urine,Clean Catch Urine Culture - Final NO GROWTH AFTER 48 HOURS Complete 02/03/18 15:30 Rectal Mucosa - Final NO CARBAPENEM-RESISTANT ENTEROBACTERI... Complete Current Medications Medications (Trade) Dose Ordered Sig/Isabella Route PRN Reason Start Time Stop Time Status Last Admin Dose Admin Acetaminophen (Tylenol) 650 mg Q6H PRN ORAL Mild Pain/Temp > 100.5 03/15/18 11:18 04/05/18 11:17 Bisacodyl (Dulcolax) 10 mg DAILYPRN PRN RECTAL Constipation 03/15/18 11:18 04/01/18 11:17 03/18/18 08:49 Clonidine HCl (Catapres Tab) 0.1 mg Q4H PRN ORAL SBP above 150 03/15/18 11:18 03/21/18 11:17 Diltiazem HCl (Cardizem CD) 240 mg DAILY ORAL 03/16/18 09:00 03/27/18 08:59 03/19/18 09:25 Diphenhydramine HCl (Benadryl) 25 mg Q6H PRN ORAL Itching 03/15/18 12:15 04/05/18 06:14 03/18/18 06:10 Magnesium Sulfate 100 ml @ 100 mls/hr Q1H IVPB 03/19/18 09:00 03/19/18 10:59 03/19/18 10:32 Methylprednisolone Sodium Succinate (Solu-MEDROL) 40 mg EVERY 12 HOURS IVP 03/17/18 21:00 04/16/18 20:59 03/19/18 09:26 Ondansetron HCl (Zofran) 4 mg Q4H PRN IVP Nausea & Vomiting 03/16/18 09:00 04/15/18 08:59 03/16/18 08:59 Pantoprazole (Protonix) 40 mg DAILY ORAL 03/16/18 09:00 03/29/18 08:59 03/19/18 09:25 Vitamin A/Vitamin D (A & D Oint) 1 applic EVERY 12 HOURS TOPIC 03/15/18 21:00 03/21/18 20:59 03/19/18 09:25 Laboratory Tests 03/19/18 03:35: Sodium Level 140, Potassium Level 4.8, Chloride Level 99, Carbon Dioxide Level 40H, Anion Gap 0L, Blood Urea Nitrogen 13, Creatinine 0.6, Estimat Glomerular Filtration Rate , Glucose Level 147H, Calcium Level 9.3, Magnesium Level 1.7L, Total Bilirubin < 0.1L, Aspartate Amino Transf (AST/SGOT) 9L, Alanine Aminotransferase (ALT/SGPT) 13, Alkaline Phosphatase 92, Pro-B-Type Natriuretic Peptide 320H, Total Protein 7.1, Albumin 2.3L, Globulin 4.8, Albumin/Globulin Ratio 0.5L 03/19/18 08:45: Arterial Blood pH 7.364, Arterial Blood Partial Pressure CO2 83.5*H, Arterial Blood Partial Pressure O2 94.5, Arterial Blood HCO3 46.5*H, Arterial Blood Oxygen Saturation 96.9, Arterial Blood Base Excess 17.1*H, Tarun Test Positive Height (Feet): 5 Height (Inches): 6.00 Weight (Pounds): 224 Objective exam stable renal u/s (02/19) noted last CXR noted Spenser Marc MD Mar 19, 2018 10:40
[2018-03-19 11:29] VITALS: BP 131/74
[2018-03-19 16:00] VITALS: BP 123/68
[2018-03-19 20:00] VITALS: BP 128/70
[2018-03-20] VITALS: BP 139/72
[2018-03-20 04:00] VITALS: BP 121/61
[2018-03-20 07:54] VITALS: BP 146/81
[2018-03-20] MEDS: dilTIAZem HCl CD 240mg cap ORAL SCH (08:14)
[2018-03-20] MEDS: Vitamin A&D Oint 2oz Tube TOPIC SCH ×2 (08:15→21:05)
[2018-03-20] MEDS: Solu-MEDROL 40mg Inj IVP SCH ×2 (08:15→21:05)
--- NOTE | 2018-03-20 08:31 | Pulmonology Progress Note ---
Assessment/Plan Assessment/Plan PULMONARY PROGRESS NOTE IMPRESSION: Patient with acute on chronic respiratory failure, COPD with acute exacerbation, cardiomegaly, pleural effusion and pulmonary edema, protein-calorie malnutrition. Improved SOB, on BiPAP PRN CXR: Persistent left sided infiltrates PLAN respiratory care reviewed Continue current antibiotics, Steroids and HHN DVT prophylaxis hope to avoid intubation medications/laboratory data/nursing notes/care reviewed in detail note reviewed and edited care discussed with RN and RT Assessment/Plan IMPRESSION: Acute on chronic respiratory failure, COPD with acute exacerbation, chronic respiratory acidosis and associated hypoxemia, cardiomegaly, pleural effusion and pulmonary edema, protein-calorie malnutrition. loculated pleural effusion likely PLAN exam reviewed and not improved still with CO2 retention and worsening respiratory care - repeat ABG BIPAP continuous for now with Co2 acute retention- hope to avoid intubation but may be needed keep in RAMSES guarded nutrition DVT prophylaxis monitor acid base and repeat ABG for change defer dc with acute retention as patient at risk for intubation medications/laboratory data/nursing notes reviewed in detail note reviewed and edited care discussed with RN and RT Objective: GENERAL: awake; no distress; on oxygen no distress; comfortable NECK: Supple. No adenopathy. No jugular venous distention. LUNGS: Moderate breath sounds. no rhonchi. No wheezes. stable but reduced CARDIAC: S1 and S2. Regular rhythm without murmurs, rubs, or gallops. ABDOMEN: Soft, nontender, nondistended. no HSM; EXTREMITIES: No cyanosis, clubbing; trace edema. NEUROLOGIC: Grossly nonfocal, awake alert reviewed and examined Vital Signs Noted Labs Test 03/16/18 09:20 03/17/18 04:00 03/18/18 08:15 03/18/18 09:13 Arterial Blood pH 7.308 (7.350-7.450) 7.328 (7.350-7.450) 7.315 (7.350-7.450) Arterial Blood Partial Pressure CO2 80.7 mmHg (35.0-45.0) 77.5 mmHg (35.0-45.0) 87.0 mmHg (35.0-45.0) Arterial Blood Partial Pressure O2 91.8 mmHg (75.0-100.0) 72.5 mmHg (75.0-100.0) 102.5 mmHg (75.0-100.0) Arterial Blood HCO3 39.5 mmol/L (22.0-26.0) 39.0 mmol/L (22.0-26.0) 43.3 mmol/L (22.0-26.0) Arterial Blood Oxygen Saturation 91.8 % (95-100) 94.5 % (95-100) 97.0 % (95-100) Arterial Blood Base Excess 10 (-2-2) 10.7 (-2-2) 13.2 (-2-2) Tarun Test Positive Positive White Blood Count 6.6 K/UL (4.8-10.8) Red Blood Count 4.45 M/UL (4.20-5.40) Hemoglobin 12.4 G/DL (12.0-16.0) Hematocrit 41.3 % (37.0-47.0) Mean Corpuscular Volume 93 FL (80-99) Mean Corpuscular Hemoglobin 27.9 PG (27.0-31.0) Mean Corpuscular Hemoglobin Concent 30.0 G/DL (32.0-36.0) Red Cell Distribution Width 14.9 % (11.6-14.8) Platelet Count 299 K/UL (150-450) Mean Platelet Volume 6.4 FL (6.5-10.1) Neutrophils (%) (Auto) % (45.0-75.0) Lymphocytes (%) (Auto) % (20.0-45.0) Monocytes (%) (Auto) % (1.0-10.0) Eosinophils (%) (Auto) % (0.0-3.0) Basophils (%) (Auto) % (0.0-2.0) Differential Total Cells Counted 100 Neutrophils % (Manual) 84 % (45-75) Lymphocytes % (Manual) 10 % (20-45) Monocytes % (Manual) 6 % (1-10) Eosinophils % (Manual) 0 % (0-3) Basophils % (Manual) 0 % (0-2) Band Neutrophils 0 % (0-8) Platelet Estimate Adequate Platelet Morphology Normal Sodium Level 138 MMOL/L (136-145) Potassium Level 4.7 MMOL/L (3.5-5.1) Chloride Level 97 MMOL/L (98-107) Carbon Dioxide Level 39 MMOL/L (21-32) Anion Gap 3 mmol/L (5-15) Blood Urea Nitrogen 12 mg/dL (7-18) Creatinine 0.6 MG/DL (0.55-1.30) Estimat Glomerular Filtration Rate mL/min (>60) Glucose Level 205 MG/DL (74-106) Calcium Level 9.2 MG/DL (8.5-10.1) Total Bilirubin 0.3 MG/DL (0.2-1.0) Aspartate Amino Transf (AST/SGOT) 12 U/L (15-37) Alanine Aminotransferase (ALT/SGPT) 8 U/L (12-78) Alkaline Phosphatase 101 U/L (46-116) Total Protein 7.5 G/DL (6.4-8.2) Albumin 2.4 G/DL (3.4-5.0) Globulin 5.1 g/dL Albumin/Globulin Ratio 0.5 (1.0-2.7) Test 03/19/18 03:35 Sodium Level 140 MMOL/L (136-145) Potassium Level 4.8 MMOL/L (3.5-5.1) Chloride Level 99 MMOL/L (98-107) Carbon Dioxide Level 40 MMOL/L (21-32) Anion Gap 0 mmol/L (5-15) Blood Urea Nitrogen 13 mg/dL (7-18) Creatinine 0.6 MG/DL (0.55-1.30) Estimat Glomerular Filtration Rate mL/min (>60) Glucose Level 147 MG/DL (74-106) Calcium Level 9.3 MG/DL (8.5-10.1) Magnesium Level 1.7 MG/DL (1.8-2.4) Total Bilirubin < 0.1 MG/DL (0.2-1.0) Aspartate Amino Transf (AST/SGOT) 9 U/L (15-37) Alanine Aminotransferase (ALT/SGPT) 13 U/L (12-78) Alkaline Phosphatase 92 U/L (46-116) Pro-B-Type Natriuretic Peptide 320 pg/mL (0-125) Total Protein 7.1 G/DL (6.4-8.2) Albumin 2.3 G/DL (3.4-5.0) Globulin 4.8 g/dL Albumin/Globulin Ratio 0.5 (1.0-2.7) Subjective ROS Limited/Unobtainable: No Allergies: Coded Allergies: No Known Allergies (Unverified , 12/10/15) Objective Last 24 Hour Vital Signs Date Time Temp Pulse Resp B/P (MAP) Pulse Ox O2 Delivery O2 Flow Rate FiO2 03/20/18 08:14 80 146/81 03/20/18 08:00 30 03/20/18 08:00 Bi-pap Bi-pap Bi-pap 03/20/18 07:54 97.0 80 20 146/81 (102) 99 03/20/18 07:09 100 Bi-pap 03/20/18 07:08 Bi-pap 03/20/18 07:06 66 17 66 Full Face 30 03/20/18 05:12 75 19 99 Full Face 30 03/20/18 04:00 Bi-pap Bi-pap Bi-pap 03/20/18 04:00 40 03/20/18 04:00 96.6 71 16 121/61 (81) 99 03/20/18 04:00 76 03/20/18 03:38 82 17 100 Full Face 30 03/20/18 01:23 74 21 100 Full Face 30 03/20/18 00:00 79 03/20/18 00:00 40 03/20/18 00:00 97.2 80 16 139/72 (94) 99 03/20/18 00:00 Bi-pap Bi-pap Bi-pap 03/19/18 23:07 89 19 98 Full Face 30 03/19/18 21:11 Bi-pap 03/19/18 21:11 Bi-pap 03/19/18 21:10 80 17 99 Full Face 30 03/19/18 20:00 40 03/19/18 20:00 97.9 83 16 128/70 (89) 100 03/19/18 20:00 99 03/19/18 20:00 Bi-pap Bi-pap Bi-pap 03/19/18 18:37 84 20 100 Full Face 40 03/19/18 16:37 83 21 100 Full Face 40 03/19/18 16:00 40 03/19/18 16:00 97.7 83 24 123/68 (86) 100 03/19/18 16:00 Bi-pap Bi-pap Bi-pap 03/19/18 15:29 83 03/19/18 14:43 78 16 100 Full Face 40 03/19/18 12:59 81 16 99 Full Face 40 03/19/18 12:00 40 03/19/18 12:00 Bi-pap Bi-pap Bi-pap 03/19/18 11:42 86 03/19/18 11:29 97.5 90 19 131/74 (93) 100 03/19/18 10:52 82 18 99 Full Face 40 03/19/18 09:25 98 133/65 Intake and Output 03/19/18 03/20/18 18:59 06:59 Intake Total 650 ml 100 ml Output Total 350 ml 1100 ml Balance 300 ml -1000 ml Intake Oral 450 ml 100 ml IV Total 200 ml Output Urine Total 350 ml 1100 ml Laboratory Tests 03/19/18 08:45: Arterial Blood pH 7.364, Arterial Blood Partial Pressure CO2 83.5*H, Arterial Blood Partial Pressure O2 94.5, Arterial Blood HCO3 46.5*H, Arterial Blood Oxygen Saturation 96.9, Arterial Blood Base Excess 17.1*H, Tarun Test Positive Current Medications Medications (Trade) Dose Ordered Sig/Isabella Route PRN Reason Start Time Stop Time Status Last Admin Dose Admin Acetaminophen (Tylenol) 650 mg Q6H PRN ORAL Mild Pain/Temp > 100.5 03/15/18 11:18 04/05/18 11:17 03/20/18 01:05 Acetazolamide (Diamox) 250 mg TWICE A DAY ORAL 03/19/18 18:00 03/22/18 17:59 03/20/18 08:15 Bisacodyl (Dulcolax) 10 mg DAILYPRN PRN RECTAL Constipation 03/15/18 11:18 04/01/18 11:17 03/18/18 08:49 Clonidine HCl (Catapres Tab) 0.1 mg Q4H PRN ORAL SBP above 150 03/15/18 11:18 03/21/18 11:17 Diltiazem HCl (Cardizem CD) 240 mg DAILY ORAL 03/16/18 09:00 03/27/18 08:59 03/20/18 08:14 Diphenhydramine HCl (Benadryl) 25 mg Q6H PRN ORAL Itching 03/15/18 12:15 04/05/18 06:14 03/18/18 06:10 Methylprednisolone Sodium Succinate (Solu-MEDROL) 40 mg EVERY 12 HOURS IVP 03/17/18 21:00 04/16/18 20:59 03/20/18 08:15 Ondansetron HCl (Zofran) 4 mg Q4H PRN IVP Nausea & Vomiting 03/16/18 09:00 04/15/18 08:59 03/16/18 08:59 Pantoprazole (Protonix) 40 mg DAILY ORAL 03/16/18 09:00 03/29/18 08:59 03/20/18 08:14 Vitamin A/Vitamin D (A & D Oint) 1 applic EVERY 12 HOURS TOPIC 03/15/18 21:00 03/21/18 20:59 03/20/18 08:15 Ashvin Serrano MD Mar 20, 2018 08:31
--- NOTE | 2018-03-20 09:05 | General Progress Note ---
Assessment/Plan Problem List: (1) COPD exacerbation ICD Codes: J44.1 - Chronic obstructive pulmonary disease with (acute) exacerbation SNOMED: 675305230 (2) HTN (hypertension) ICD Codes: I10 - Essential (primary) hypertension SNOMED: 09558864 (3) Hypoxia ICD Codes: R09.02 - Hypoxemia SNOMED: 696383818 (4) Elevated troponin ICD Codes: R74.8 - Abnormal levels of other serum enzymes SNOMED: 241600889, 678192568, 541480586 (5) Renal insufficiency ICD Codes: N28.9 - Disorder of kidney and ureter, unspecified SNOMED: 971791387, 120999664 (6) Respiratory failure ICD Codes: J96.90 - Respiratory failure, unspecified, unspecified whether with hypoxia or hypercapnia SNOMED: 994533652 Qualifiers: Qualified Codes: J96.02 - Acute respiratory failure with hypercapnia (7) Right lower lobe pneumonia ICD Codes: J18.1 - Lobar pneumonia, unspecified organism SNOMED: 481451276 Qualifiers: Qualified Codes: J18.1 - Lobar pneumonia, unspecified organism Assessment/Plan resp rx o2 continuous bipap iv steroids keep dry monitor cxr no ready for dc to snf but can go to [facility] Subjective ROS Limited/Unobtainable: No Constitutional: Reports: malaise, weakness HEENT: Reports: no symptoms Cardiovascular: Reports: no symptoms Respiratory: Reports: shortness of breath Gastrointestinal/Abdominal: Reports: no symptoms Genitourinary: Reports: no symptoms Neurologic/Psychiatric: Reports: no symptoms Endocrine: Reports: no symptoms Hematologic/Lymphatic: Reports: no symptoms Allergies: Coded Allergies: No Known Allergies (Unverified , 12/10/15) All Systems: reviewed and negative except above Subjective no events. remains on bipap except when eating. pCO2 better on abg Objective Last 24 Hour Vital Signs Date Time Temp Pulse Resp B/P (MAP) Pulse Ox O2 Delivery O2 Flow Rate FiO2 03/20/18 08:14 80 146/81 03/20/18 08:00 84 03/20/18 08:00 30 03/20/18 08:00 Bi-pap Bi-pap Bi-pap 03/20/18 07:54 97.0 80 20 146/81 (102) 99 03/20/18 07:09 100 Bi-pap 03/20/18 07:08 Bi-pap 03/20/18 07:06 66 17 66 Full Face 30 03/20/18 05:12 75 19 99 Full Face 30 03/20/18 04:00 Bi-pap Bi-pap Bi-pap 03/20/18 04:00 40 03/20/18 04:00 96.6 71 16 121/61 (81) 99 03/20/18 04:00 76 03/20/18 03:38 82 17 100 Full Face 30 03/20/18 01:23 74 21 100 Full Face 30 03/20/18 00:00 79 03/20/18 00:00 40 03/20/18 00:00 97.2 80 16 139/72 (94) 99 03/20/18 00:00 Bi-pap Bi-pap Bi-pap 03/19/18 23:07 89 19 98 Full Face 30 03/19/18 21:11 Bi-pap 03/19/18 21:11 Bi-pap 03/19/18 21:10 80 17 99 Full Face 30 03/19/18 20:00 40 03/19/18 20:00 97.9 83 16 128/70 (89) 100 03/19/18 20:00 99 03/19/18 20:00 Bi-pap Bi-pap Bi-pap 03/19/18 18:37 84 20 100 Full Face 40 03/19/18 16:37 83 21 100 Full Face 40 03/19/18 16:00 40 03/19/18 16:00 97.7 83 24 123/68 (86) 100 03/19/18 16:00 Bi-pap Bi-pap Bi-pap 03/19/18 15:29 83 03/19/18 14:43 78 16 100 Full Face 40 03/19/18 12:59 81 16 99 Full Face 40 03/19/18 12:00 40 03/19/18 12:00 Bi-pap Bi-pap Bi-pap 03/19/18 11:42 86 03/19/18 11:29 97.5 90 19 131/74 (93) 100 03/19/18 10:52 82 18 99 Full Face 40 03/19/18 09:25 98 133/65 Intake and Output 03/19/18 03/20/18 19:00 07:00 Intake Total 650 ml 100 ml Output Total 350 ml 1100 ml Balance 300 ml -1000 ml Intake Oral 450 ml 100 ml IV Total 200 ml Output Urine Total 350 ml 1100 ml Laboratory Tests 03/20/18 08:40: Arterial Blood pH 7.330L, Arterial Blood Partial Pressure CO2 75.8*H, Arterial Blood Partial Pressure O2 86.5, Arterial Blood HCO3 39.7H, Arterial Blood Oxygen Saturation 96.3, Arterial Blood Base Excess 10.8*H, Tarun Test Positive Height (Feet): 5 Height (Inches): 6.00 Weight (Pounds): 228 Objective General Appearance: WD/WN, resting. on bipap, opens eyes. alert. follows commands Neck: supple Cardiovascular: regular rhythm Respiratory/Chest: lungs mostly clear, few rhonchi Abdomen: normal bowel sounds, non tender, soft, no organomegaly Edema: no edema noted Arm (L), no edema noted Arm (R), no edema noted Leg (L), no edema noted Leg (R), no edema noted Pedal (L), no edema noted Pedal (R), no edema noted Generalized Manan Byrd MD Mar 20, 2018 09:05
[2018-03-20 11:55] VITALS: BP 141/78
--- NOTE | 2018-03-20 12:42 | Urology Progress Note ---
Assessment/Plan Assessment/Plan 1. Gross hematuria, improved. 2. Urinary retention hx. 3. Probable neurogenic bladder. 4. Pyuria. 5. Proteinuria. 6. Possible hemorrhagic cystitis. monitor clinically no active bleeding s/p abx off anticoagulation, ok to resume if needed monitor h/h cysto later consider CT check urine cx PRN Subjective Allergies: Coded Allergies: No Known Allergies (Unverified , 12/10/15) Subjective all noted, feels fair, urine reported grossly clear Objective Last 24 Hour Vital Signs Date Time Temp Pulse Resp B/P (MAP) Pulse Ox O2 Delivery O2 Flow Rate FiO2 03/20/18 12:00 Bi-pap Bi-pap Bi-pap 03/20/18 12:00 30 03/20/18 11:55 97.8 80 20 141/78 (99) 98 03/20/18 10:52 79 16 99 Full Face 30 03/20/18 09:05 81 18 100 Full Face 30 03/20/18 08:14 80 146/81 03/20/18 08:00 84 03/20/18 08:00 30 03/20/18 08:00 Bi-pap Bi-pap Bi-pap 03/20/18 07:54 97.0 80 20 146/81 (102) 99 03/20/18 07:09 100 Bi-pap 03/20/18 07:08 Bi-pap 03/20/18 07:06 66 17 99 Full Face 30 03/20/18 05:12 75 19 99 Full Face 30 03/20/18 04:00 Bi-pap Bi-pap Bi-pap 03/20/18 04:00 40 03/20/18 04:00 96.6 71 16 121/61 (81) 99 03/20/18 04:00 76 03/20/18 03:38 82 17 100 Full Face 30 03/20/18 01:23 74 21 100 Full Face 30 03/20/18 00:00 79 03/20/18 00:00 40 03/20/18 00:00 97.2 80 16 139/72 (94) 99 03/20/18 00:00 Bi-pap Bi-pap Bi-pap 03/19/18 23:07 89 19 98 Full Face 30 03/19/18 21:11 Bi-pap 03/19/18 21:11 Bi-pap 03/19/18 21:10 80 17 99 Full Face 30 03/19/18 20:00 40 03/19/18 20:00 97.9 83 16 128/70 (89) 100 03/19/18 20:00 99 03/19/18 20:00 Bi-pap Bi-pap Bi-pap 03/19/18 18:37 84 20 100 Full Face 40 03/19/18 16:37 83 21 100 Full Face 40 03/19/18 16:00 40 03/19/18 16:00 97.7 83 24 123/68 (86) 100 03/19/18 16:00 Bi-pap Bi-pap Bi-pap 03/19/18 15:29 83 03/19/18 14:43 78 16 100 Full Face 40 03/19/18 12:59 81 16 99 Full Face 40 Intake and Output 03/19/18 03/20/18 18:59 06:59 Intake Total 650 ml 100 ml Output Total 350 ml 1100 ml Balance 300 ml -1000 ml Intake Oral 450 ml 100 ml IV Total 200 ml Output Urine Total 350 ml 1100 ml Microbiology Date/Time Source Procedure Growth Status 02/03/18 15:30 Blood Blood Culture - Final NO GROWTH AFTER 5 DAYS Complete 02/20/18 18:40 Stool Clostridium difficile Toxin Assay - Final Complete 02/20/18 12:50 Urine,Clean Catch Urine Culture - Final NO GROWTH AFTER 48 HOURS Complete 02/03/18 15:30 Rectal Mucosa - Final NO CARBAPENEM-RESISTANT ENTEROBACTERI... Complete Current Medications Medications (Trade) Dose Ordered Sig/Isabella Route PRN Reason Start Time Stop Time Status Last Admin Dose Admin Acetaminophen (Tylenol) 650 mg Q6H PRN ORAL Mild Pain/Temp > 100.5 03/15/18 11:18 04/05/18 11:17 03/20/18 01:05 Acetazolamide (Diamox) 250 mg TWICE A DAY ORAL 03/19/18 18:00 03/22/18 17:59 03/20/18 08:15 Bisacodyl (Dulcolax) 10 mg DAILYPRN PRN RECTAL Constipation 03/15/18 11:18 04/01/18 11:17 03/18/18 08:49 Clonidine HCl (Catapres Tab) 0.1 mg Q4H PRN ORAL SBP above 150 03/15/18 11:18 03/21/18 11:17 Diltiazem HCl (Cardizem CD) 240 mg DAILY ORAL 03/16/18 09:00 03/27/18 08:59 03/20/18 08:14 Diphenhydramine HCl (Benadryl) 25 mg Q6H PRN ORAL Itching 03/15/18 12:15 04/05/18 06:14 03/18/18 06:10 Methylprednisolone Sodium Succinate (Solu-MEDROL) 40 mg EVERY 12 HOURS IVP 03/17/18 21:00 04/16/18 20:59 03/20/18 08:15 Ondansetron HCl (Zofran) 4 mg Q4H PRN IVP Nausea & Vomiting 03/16/18 09:00 04/15/18 08:59 03/16/18 08:59 Pantoprazole (Protonix) 40 mg DAILY ORAL 03/16/18 09:00 03/29/18 08:59 03/20/18 08:14 Vitamin A/Vitamin D (A & D Oint) 1 applic EVERY 12 HOURS TOPIC 03/15/18 21:00 03/21/18 20:59 03/20/18 08:15 Laboratory Tests 03/20/18 08:40: Arterial Blood pH 7.330L, Arterial Blood Partial Pressure CO2 75.8*H, Arterial Blood Partial Pressure O2 86.5, Arterial Blood HCO3 39.7H, Arterial Blood Oxygen Saturation 96.3, Arterial Blood Base Excess 10.8*H, Tarun Test Positive Height (Feet): 5 Height (Inches): 6.00 Weight (Pounds): 228 Objective exam stable renal u/s (02/19) noted last CXR noted Spenser Marc MD Mar 20, 2018 12:42
[2018-03-20 16:00] VITALS: BP 131/70
[2018-03-20 19:48] VITALS: BP 131/69
--- NOTE | 2018-03-20 22:45 | Progress Note ---
DATE: 03/20/2018 CARDIOLOGY PROGRESS NOTE SUBJECTIVE: Status unchanged. Remaining on BiPAP support. OBJECTIVE: VITAL SIGNS: Blood pressure 146/81, pulse 80, and respiratory rate 18. LUNGS: Diminished breath sounds. No wheezing. Few rhonchi. HEART: Regular rhythm and rate. Normal S1 and S2. ABDOMEN: Soft. EXTREMITIES: Trace edema. LABORATORY AND DIAGNOSTIC DATA: ABG, 7.33, 76, and 86. New other new labs. IMPRESSION: 1. COPD. 2. Acute on chronic respiratory acidosis, worsening. 3. Hypomagnesemia, status post replacement therapy. 4. Compensatory metabolic alkalosis. 5. Paroxysmal atrial tachyarrhythmias. PLAN: 1. Respiratory hygiene. 2. BiPAP support. 3. Continue acetazolamide to influence metabolic parameters. 4. Recheck chemistry panel. 5. Continue diltiazem for suppression of atrial ectopy and arrhythmias. Ashvin Wu M.D. DR: KADIE JOB#: [id number] CC:
[2018-03-21] VITALS: BP 145/70
[2018-03-21 04:00] VITALS: BP 139/73
[2018-03-21 04:58] LABS: HEMATOCRIT 40.5 % (37.0-47.0); HEMOGLOBIN 12.5 G/DL (12.0-16.0); MEAN CORPUSCULAR VOLUME 92 FL (80-99); PLATELET COUNT 311 K/UL (150-450); RED BLOOD COUNT 4.39 M/UL (4.20-5.40); RED CELL DISTRIBUTION WIDTH 14.6 % (11.6-14.8); WHITE BLOOD COUNT 12.8 K/UL (4.8-10.8)
[2018-03-21 05:26] LABS: ALANINE AMINOTRANSFERASE 14 U/L (12-78); ALBUMIN 2.5 G/DL (3.4-5.0); ALBUMIN/GLOBULIN RATIO 0.5 (1.0-2.7); ALKALINE PHOSPHATASE 90 U/L (46-116); ANION GAP 3 mmol/L (5-15); ASPARTATE AMINO TRANSFERASE 10 U/L (15-37); BILIRUBIN,TOTAL 0.1 MG/DL (0.2-1.0); BLOOD UREA NITROGEN 20 mg/dL (7-18); CALCIUM 9.4 MG/DL (8.5-10.1); CARBON DIOXIDE 34 MMOL/L (21-32); CHLORIDE 103 MMOL/L (98-107); CREATININE 0.6 MG/DL (0.55-1.30); POTASSIUM 3.9 MMOL/L (3.5-5.1); SODIUM 140 MMOL/L (136-145)
[2018-03-21 08:00] VITALS: BP 129/79
--- NOTE | 2018-03-21 08:09 | General Progress Note ---
Assessment/Plan Problem List: (1) COPD exacerbation ICD Codes: J44.1 - Chronic obstructive pulmonary disease with (acute) exacerbation SNOMED: 567835852 (2) HTN (hypertension) ICD Codes: I10 - Essential (primary) hypertension SNOMED: 04834037 (3) Hypoxia ICD Codes: R09.02 - Hypoxemia SNOMED: 606456538 (4) Elevated troponin ICD Codes: R74.8 - Abnormal levels of other serum enzymes SNOMED: 954727269, 808978711, 467913334 (5) Renal insufficiency ICD Codes: N28.9 - Disorder of kidney and ureter, unspecified SNOMED: 944521823, 645331832 (6) Respiratory failure ICD Codes: J96.90 - Respiratory failure, unspecified, unspecified whether with hypoxia or hypercapnia SNOMED: 534473574 Qualifiers: Qualified Codes: J96.02 - Acute respiratory failure with hypercapnia (7) Right lower lobe pneumonia ICD Codes: J18.1 - Lobar pneumonia, unspecified organism SNOMED: 784778486 Qualifiers: Qualified Codes: J18.1 - Lobar pneumonia, unspecified organism Status: stable, progressing Assessment/Plan resp rx o2 continuous bipap iv steroids per pulm keep dry monitor cxr no ready for dc to snf but can go to [facility] Subjective ROS Limited/Unobtainable: No Constitutional: Reports: malaise, weakness HEENT: Reports: no symptoms Cardiovascular: Reports: no symptoms Respiratory: Reports: cough, shortness of breath Gastrointestinal/Abdominal: Reports: no symptoms Genitourinary: Reports: no symptoms Neurologic/Psychiatric: Reports: no symptoms Endocrine: Reports: no symptoms Hematologic/Lymphatic: Reports: no symptoms Allergies: Coded Allergies: No Known Allergies (Unverified , 12/10/15) All Systems: reviewed and negative except above Subjective no events. remains on bipap except when eating. pCO2 better on abg eating well. waiting for bed at [facility] Objective Last 24 Hour Vital Signs Date Time Temp Pulse Resp B/P (MAP) Pulse Ox O2 Delivery O2 Flow Rate FiO2 03/21/18 06:44 Bi-pap 30 03/21/18 06:44 99 Bi-pap 30 03/21/18 06:43 72 18 99 Full Face 30 03/21/18 05:30 80 18 100 Full Face 30 03/21/18 04:00 30 03/21/18 04:00 97.2 85 20 139/73 (95) 100 03/21/18 04:00 81 03/21/18 04:00 Bi-pap Bi-pap Bi-pap 03/21/18 03:30 80 18 95 2.0 28 03/21/18 01:17 86 20 97 2.0 28 03/21/18 00:00 75 03/21/18 00:00 Bi-pap Bi-pap Bi-pap 03/21/18 00:00 96.5 75 18 145/70 (95) 100 03/20/18 23:15 82 19 99 Full Face 30 03/20/18 21:26 70 19 100 Full Face 30 03/20/18 20:00 99 Bi-pap 30 03/20/18 20:00 85 03/20/18 20:00 Bi-pap 30 03/20/18 20:00 Bi-pap Bi-pap Bi-pap 03/20/18 20:00 30 03/20/18 20:00 74 18 99 Full Face 30 03/20/18 19:48 97.0 80 20 131/69 (89) 99 03/20/18 16:32 83 18 96 Full Face 30 03/20/18 16:00 97.5 76 22 131/70 (90) 99 03/20/18 16:00 Bi-pap Bi-pap Bi-pap 03/20/18 16:00 30 03/20/18 16:00 79 03/20/18 12:00 Bi-pap Bi-pap Bi-pap 03/20/18 12:00 86 03/20/18 12:00 30 03/20/18 11:55 97.8 80 20 141/78 (99) 98 03/20/18 10:52 79 16 99 Full Face 30 03/20/18 09:05 81 18 100 Full Face 30 03/20/18 08:14 80 146/81 Intake and Output 03/20/18 03/21/18 19:00 07:00 Intake Total 560 ml 240 ml Output Total 1000 ml 350 ml Balance -440 ml -110 ml Intake Oral 560 ml 240 ml Output Urine Total 1000 ml 350 ml # Voids 1 Laboratory Tests 03/20/18 08:40: Arterial Blood pH 7.330L, Arterial Blood Partial Pressure CO2 75.8*H, Arterial Blood Partial Pressure O2 86.5, Arterial Blood HCO3 39.7H, Arterial Blood Oxygen Saturation 96.3, Arterial Blood Base Excess 10.8*H, Tarun Test Positive 03/21/18 03:05: White Blood Count 12.8H, Red Blood Count 4.39, Hemoglobin 12.5, Hematocrit 40.5 , Mean Corpuscular Volume 92, Mean Corpuscular Hemoglobin 28.6, Mean Corpuscular Hemoglobin Concent 30.9L, Red Cell Distribution Width 14.6, Platelet Count 311, Mean Platelet Volume 6.4L, Neutrophils (%) (Auto) , Lymphocytes (%) (Auto) , Monocytes (%) (Auto) , Eosinophils (%) (Auto) , Basophils (%) (Auto) , Sodium Level 140, Potassium Level 3.9, Chloride Level 103 , Carbon Dioxide Level 34H, Anion Gap 3L, Blood Urea Nitrogen 20H, Creatinine 0.6, Estimat Glomerular Filtration Rate , Glucose Level 163H, Calcium Level 9.4 , Magnesium Level 1.9, Total Bilirubin 0.1L, Aspartate Amino Transf (AST/SGOT) 10L, Alanine Aminotransferase (ALT/SGPT) 14, Alkaline Phosphatase 90, Pro-B- Type Natriuretic Peptide 389H, Total Protein 7.4, Albumin 2.5L, Globulin 4.9, Albumin/Globulin Ratio 0.5L Height (Feet): 5 Height (Inches): 6.00 Weight (Pounds): 222 Objective General Appearance: WD/WN, resting. on bipap, opens eyes. alert. follows commands Neck: supple Cardiovascular: regular rhythm Respiratory/Chest: lungs mostly clear, few rhonchi Abdomen: normal bowel sounds, non tender, soft, no organomegaly Edema: no edema noted Arm (L), no edema noted Arm (R), no edema noted Leg (L), no edema noted Leg (R), no edema noted Pedal (L), no edema noted Pedal (R), no edema noted Generalized Manan Byrd MD Mar 21, 2018 08:09
[2018-03-21] MEDS: dilTIAZem HCl CD 240mg cap ORAL SCH (09:00)
[2018-03-21] MEDS: Solu-MEDROL 40mg Inj IVP SCH ×2 (09:00→20:19)
[2018-03-21] MEDS: Vitamin A&D Oint 2oz Tube TOPIC SCH (09:00)
--- NOTE | 2018-03-21 09:00 | Critical Care Progress Note ---
Assessment/Plan Assessment/Plan IMPRESSION: Acute on chronic respiratory failure, COPD with acute exacerbation, chronic respiratory acidosis and associated hypoxemia, cardiomegaly, pleural effusion and pulmonary edema, protein-calorie malnutrition. loculated pleural effusion likely PLAN exam reviewed and same still with CO2 retention and with little improvement respiratory care - as is BIPAP continuous for now with Co2 acute retention- hope to avoid intubation but may be needed keep in RAMSES guarded nutrition DVT prophylaxis Diamox trail monitor acid base closely defer dc with acute retention as patient at risk for intubation; agree with LTAC medications/laboratory data/nursing notes reviewed in detail note reviewed and edited care discussed with RN and RT Critical Care - Subjective Interval Events: significant co2 retention acute on chronic using bipap ROS Limited/Unobtainable: Yes Condition: unchanged EKG Rhythm: Sinus Rhythm I&O: Intake and Output 03/20/18 03/21/18 19:00 07:00 Intake Total 560 ml 240 ml Output Total 1000 ml 350 ml Balance -440 ml -110 ml Intake Oral 560 ml 240 ml Output Urine Total 1000 ml 350 ml # Voids 1 Critical Care - Objective ET-Tube: 7.5 ET Position: 24 Last 24 Hour Vital Signs Date Time Temp Pulse Resp B/P (MAP) Pulse Ox O2 Delivery O2 Flow Rate FiO2 03/21/18 08:41 77 20 98 Full Face 30 03/21/18 08:23 76 03/21/18 06:44 Bi-pap 30 03/21/18 06:44 99 Bi-pap 30 03/21/18 06:43 72 18 99 Full Face 30 03/21/18 05:30 80 18 100 Full Face 30 03/21/18 04:00 30 03/21/18 04:00 97.2 85 20 139/73 (95) 100 03/21/18 04:00 81 03/21/18 04:00 Bi-pap Bi-pap Bi-pap 03/21/18 03:30 80 18 95 2.0 28 03/21/18 01:17 86 20 97 2.0 28 03/21/18 00:00 75 03/21/18 00:00 Bi-pap Bi-pap Bi-pap 03/21/18 00:00 96.5 75 18 145/70 (95) 100 03/20/18 23:15 82 19 99 Full Face 30 03/20/18 21:26 70 19 100 Full Face 30 03/20/18 20:00 99 Bi-pap 30 03/20/18 20:00 85 03/20/18 20:00 Bi-pap 30 03/20/18 20:00 Bi-pap Bi-pap Bi-pap 03/20/18 20:00 30 03/20/18 20:00 74 18 99 Full Face 30 03/20/18 19:48 97.0 80 20 131/69 (89) 99 03/20/18 16:32 83 18 96 Full Face 30 03/20/18 16:00 97.5 76 22 131/70 (90) 99 03/20/18 16:00 Bi-pap Bi-pap Bi-pap 03/20/18 16:00 30 03/20/18 16:00 79 03/20/18 12:00 Bi-pap Bi-pap Bi-pap 03/20/18 12:00 86 03/20/18 12:00 30 03/20/18 11:55 97.8 80 20 141/78 (99) 98 03/20/18 10:52 79 16 99 Full Face 30 03/20/18 09:05 81 18 100 Full Face 30 Labs: Labs Test 03/18/18 09:13 03/19/18 03:35 03/19/18 08:45 03/20/18 08:40 Arterial Blood pH 7.315 (7.350-7.450) 7.364 (7.350-7.450) 7.330 (7.350-7.450) Arterial Blood Partial Pressure CO2 87.0 mmHg (35.0-45.0) 83.5 mmHg (35.0-45.0) 75.8 mmHg (35.0-45.0) Arterial Blood Partial Pressure O2 102.5 mmHg (75.0-100.0) 94.5 mmHg (75.0-100.0) 86.5 mmHg (75.0-100.0) Arterial Blood HCO3 43.3 mmol/L (22.0-26.0) 46.5 mmol/L (22.0-26.0) 39.7 mmol/L (22.0-26.0) Arterial Blood Oxygen Saturation 97.0 % (95-100) 96.9 % (95-100) 96.3 % (95-100) Arterial Blood Base Excess 13.2 (-2-2) 17.1 (-2-2) 10.8 (-2-2) Sodium Level 140 MMOL/L (136-145) Potassium Level 4.8 MMOL/L (3.5-5.1) Chloride Level 99 MMOL/L (98-107) Carbon Dioxide Level 40 MMOL/L (21-32) Anion Gap 0 mmol/L (5-15) Blood Urea Nitrogen 13 mg/dL (7-18) Creatinine 0.6 MG/DL (0.55-1.30) Estimat Glomerular Filtration Rate mL/min (>60) Glucose Level 147 MG/DL (74-106) Calcium Level 9.3 MG/DL (8.5-10.1) Magnesium Level 1.7 MG/DL (1.8-2.4) Total Bilirubin < 0.1 MG/DL (0.2-1.0) Aspartate Amino Transf (AST/SGOT) 9 U/L (15-37) Alanine Aminotransferase (ALT/SGPT) 13 U/L (12-78) Alkaline Phosphatase 92 U/L (46-116) Pro-B-Type Natriuretic Peptide 320 pg/mL (0-125) Total Protein 7.1 G/DL (6.4-8.2) Albumin 2.3 G/DL (3.4-5.0) Globulin 4.8 g/dL Albumin/Globulin Ratio 0.5 (1.0-2.7) Tarun Test Positive Positive Test 03/21/18 03:05 White Blood Count 12.8 K/UL (4.8-10.8) Red Blood Count 4.39 M/UL (4.20-5.40) Hemoglobin 12.5 G/DL (12.0-16.0) Hematocrit 40.5 % (37.0-47.0) Mean Corpuscular Volume 92 FL (80-99) Mean Corpuscular Hemoglobin 28.6 PG (27.0-31.0) Mean Corpuscular Hemoglobin Concent 30.9 G/DL (32.0-36.0) Red Cell Distribution Width 14.6 % (11.6-14.8) Platelet Count 311 K/UL (150-450) Mean Platelet Volume 6.4 FL (6.5-10.1) Neutrophils (%) (Auto) % (45.0-75.0) Lymphocytes (%) (Auto) % (20.0-45.0) Monocytes (%) (Auto) % (1.0-10.0) Eosinophils (%) (Auto) % (0.0-3.0) Basophils (%) (Auto) % (0.0-2.0) Sodium Level 140 MMOL/L (136-145) Potassium Level 3.9 MMOL/L (3.5-5.1) Chloride Level 103 MMOL/L (98-107) Carbon Dioxide Level 34 MMOL/L (21-32) Anion Gap 3 mmol/L (5-15) Blood Urea Nitrogen 20 mg/dL (7-18) Creatinine 0.6 MG/DL (0.55-1.30) Estimat Glomerular Filtration Rate mL/min (>60) Glucose Level 163 MG/DL (74-106) Calcium Level 9.4 MG/DL (8.5-10.1) Magnesium Level 1.9 MG/DL (1.8-2.4) Total Bilirubin 0.1 MG/DL (0.2-1.0) Aspartate Amino Transf (AST/SGOT) 10 U/L (15-37) Alanine Aminotransferase (ALT/SGPT) 14 U/L (12-78) Alkaline Phosphatase 90 U/L (46-116) Pro-B-Type Natriuretic Peptide 389 pg/mL (0-125) Total Protein 7.4 G/DL (6.4-8.2) Albumin 2.5 G/DL (3.4-5.0) Globulin 4.9 g/dL Albumin/Globulin Ratio 0.5 (1.0-2.7) Objective: GENERAL: awake; no distress; on oxygen no distress; comfortable NECK: Supple. No adenopathy. No jugular venous distention. LUNGS: Moderate breath sounds. no rhonchi. No wheezes. stable but reduced CARDIAC: S1 and S2. Regular rhythm without murmurs, rubs, or gallops. ABDOMEN: Soft, nontender, nondistended. no HSM; EXTREMITIES: No cyanosis, clubbing; trace edema. NEUROLOGIC: Grossly nonfocal, awake alert reviewed and examined Accucheck: 140 Mk Billings MD Mar 21, 2018 09:00
--- NOTE | 2018-03-21 10:11 | Urology Progress Note ---
Assessment/Plan Assessment/Plan 1. Gross hematuria, improved. 2. Urinary retention hx. 3. Probable neurogenic bladder. 4. Pyuria. 5. Proteinuria. 6. Possible hemorrhagic cystitis. monitor clinically no active bleeding s/p abx off anticoagulation, ok to resume if needed monitor h/h cysto later consider CT check urine cx PRN Subjective Allergies: Coded Allergies: No Known Allergies (Unverified , 12/10/15) Subjective all noted, feels fair, urine reported grossly clear Objective Last 24 Hour Vital Signs Date Time Temp Pulse Resp B/P (MAP) Pulse Ox O2 Delivery O2 Flow Rate FiO2 03/21/18 08:41 77 20 98 Full Face 30 03/21/18 08:23 76 03/21/18 06:44 Bi-pap 30 03/21/18 06:44 99 Bi-pap 30 03/21/18 06:43 72 18 99 Full Face 30 03/21/18 05:30 80 18 100 Full Face 30 03/21/18 04:00 30 03/21/18 04:00 97.2 85 20 139/73 (95) 100 03/21/18 04:00 81 03/21/18 04:00 Bi-pap Bi-pap Bi-pap 03/21/18 03:30 80 18 95 2.0 28 03/21/18 01:17 86 20 97 2.0 28 03/21/18 00:00 75 03/21/18 00:00 Bi-pap Bi-pap Bi-pap 03/21/18 00:00 96.5 75 18 145/70 (95) 100 03/20/18 23:15 82 19 99 Full Face 30 03/20/18 21:26 70 19 100 Full Face 30 03/20/18 20:00 99 Bi-pap 30 03/20/18 20:00 85 03/20/18 20:00 Bi-pap 30 03/20/18 20:00 Bi-pap Bi-pap Bi-pap 03/20/18 20:00 30 03/20/18 20:00 74 18 99 Full Face 30 03/20/18 19:48 97.0 80 20 131/69 (89) 99 03/20/18 16:32 83 18 96 Full Face 30 03/20/18 16:00 97.5 76 22 131/70 (90) 99 03/20/18 16:00 Bi-pap Bi-pap Bi-pap 03/20/18 16:00 30 03/20/18 16:00 79 03/20/18 12:00 Bi-pap Bi-pap Bi-pap 03/20/18 12:00 86 03/20/18 12:00 30 03/20/18 11:55 97.8 80 20 141/78 (99) 98 03/20/18 10:52 79 16 99 Full Face 30 Intake and Output 03/20/18 03/21/18 19:00 07:00 Intake Total 560 ml 240 ml Output Total 1000 ml 350 ml Balance -440 ml -110 ml Intake Oral 560 ml 240 ml Output Urine Total 1000 ml 350 ml # Voids 1 Microbiology Date/Time Source Procedure Growth Status 02/03/18 15:30 Blood Blood Culture - Final NO GROWTH AFTER 5 DAYS Complete 02/20/18 18:40 Stool Clostridium difficile Toxin Assay - Final Complete 02/20/18 12:50 Urine,Clean Catch Urine Culture - Final NO GROWTH AFTER 48 HOURS Complete 02/03/18 15:30 Rectal Mucosa - Final NO CARBAPENEM-RESISTANT ENTEROBACTERI... Complete Current Medications Medications (Trade) Dose Ordered Sig/Isabella Route PRN Reason Start Time Stop Time Status Last Admin Dose Admin Acetaminophen (Tylenol) 650 mg Q6H PRN ORAL Mild Pain/Temp > 100.5 03/15/18 11:18 04/05/18 11:17 03/20/18 01:05 Bisacodyl (Dulcolax) 10 mg DAILYPRN PRN RECTAL Constipation 03/15/18 11:18 04/01/18 11:17 03/18/18 08:49 Clonidine HCl (Catapres Tab) 0.1 mg Q4H PRN ORAL SBP above 150 03/15/18 11:18 03/21/18 11:17 Diltiazem HCl (Cardizem CD) 240 mg DAILY ORAL 03/16/18 09:00 03/27/18 08:59 03/20/18 08:14 Diphenhydramine HCl (Benadryl) 25 mg Q6H PRN ORAL Itching 03/15/18 12:15 04/05/18 06:14 03/18/18 06:10 Methylprednisolone Sodium Succinate (Solu-MEDROL) 40 mg EVERY 12 HOURS IVP 03/17/18 21:00 04/16/18 20:59 11/21/18 21:05 Ondansetron HCl (Zofran) 4 mg Q4H PRN IVP Nausea & Vomiting 03/16/18 09:00 04/15/18 08:59 03/16/18 08:59 Pantoprazole (Protonix) 40 mg DAILY ORAL 03/16/18 09:00 03/29/18 08:59 03/20/18 08:14 Vitamin A/Vitamin D (A & D Oint) 1 applic EVERY 12 HOURS TOPIC 03/15/18 21:00 03/21/18 20:59 03/20/18 21:05 Laboratory Tests 03/21/18 03:05: White Blood Count 12.8H, Red Blood Count 4.39, Hemoglobin 12.5, Hematocrit 40.5 , Mean Corpuscular Volume 92, Mean Corpuscular Hemoglobin 28.6, Mean Corpuscular Hemoglobin Concent 30.9L, Red Cell Distribution Width 14.6, Platelet Count 311, Mean Platelet Volume 6.4L, Neutrophils (%) (Auto) , Lymphocytes (%) (Auto) , Monocytes (%) (Auto) , Eosinophils (%) (Auto) , Basophils (%) (Auto) , Sodium Level 140, Potassium Level 3.9, Chloride Level 103 , Carbon Dioxide Level 34H, Anion Gap 3L, Blood Urea Nitrogen 20H, Creatinine 0.6, Estimat Glomerular Filtration Rate , Glucose Level 163H, Calcium Level 9.4 , Magnesium Level 1.9, Total Bilirubin 0.1L, Aspartate Amino Transf (AST/SGOT) 10L, Alanine Aminotransferase (ALT/SGPT) 14, Alkaline Phosphatase 90, Pro-B- Type Natriuretic Peptide 389H, Total Protein 7.4, Albumin 2.5L, Globulin 4.9, Albumin/Globulin Ratio 0.5L 03/21/18 09:49: Arterial Blood pH 7.310L, Arterial Blood Partial Pressure CO2 71.3*H, Arterial Blood Partial Pressure O2 104.6H, Arterial Blood HCO3 35.1H, Arterial Blood Oxygen Saturation 97.7, Arterial Blood Base Excess 6.4H, Tarun Test Positive Height (Feet): 5 Height (Inches): 6.00 Weight (Pounds): 222 Objective exam stable renal u/s (02/19) noted last CXR noted Spenser Marc MD Mar 21, 2018 10:11
[2018-03-21 12:00] VITALS: BP 125/80
[2018-03-21 16:00] VITALS: BP 112/59
[2018-03-21 20:00] VITALS: BP 150/88
[2018-03-22] VITALS: BP 148/76
[2018-03-22 03:57] VITALS: BP 150/86
[2018-03-22] MEDS ORDERED: Lidocaine 1% Plain 30 ml INJ PRN (07:00)
[2018-03-22] MEDS ORDERED: Heparin 2000 units/Ns 1000ml INJ PRN (07:00)
[2018-03-22 08:00] VITALS: BP 150/94
[2018-03-22] MEDS: dilTIAZem HCl CD 240mg cap ORAL SCH (08:14)
--- NOTE | 2018-03-22 08:25 | General Progress Note ---
Assessment/Plan Problem List: (1) COPD exacerbation ICD Codes: J44.1 - Chronic obstructive pulmonary disease with (acute) exacerbation SNOMED: 923616088 (2) HTN (hypertension) ICD Codes: I10 - Essential (primary) hypertension SNOMED: 84519043 (3) Hypoxia ICD Codes: R09.02 - Hypoxemia SNOMED: 859645308 (4) Elevated troponin ICD Codes: R74.8 - Abnormal levels of other serum enzymes SNOMED: 420342495, 507258955, 222245522 (5) Renal insufficiency ICD Codes: N28.9 - Disorder of kidney and ureter, unspecified SNOMED: 971194479, 254972742 (6) Respiratory failure ICD Codes: J96.90 - Respiratory failure, unspecified, unspecified whether with hypoxia or hypercapnia SNOMED: 414646477 Qualifiers: Qualified Codes: J96.02 - Acute respiratory failure with hypercapnia (7) Right lower lobe pneumonia ICD Codes: J18.1 - Lobar pneumonia, unspecified organism SNOMED: 789649235 Qualifiers: Qualified Codes: J18.1 - Lobar pneumonia, unspecified organism Status: stable Assessment/Plan resp rx o2 bipap per pulm picc line po steroids- no iv access keep dry monitor cxr no ready for dc to snf but can go to [facility] Subjective ROS Limited/Unobtainable: No Constitutional: Reports: malaise, weakness HEENT: Reports: no symptoms Cardiovascular: Reports: no symptoms Respiratory: Reports: no symptoms Gastrointestinal/Abdominal: Reports: no symptoms Genitourinary: Reports: no symptoms Neurologic/Psychiatric: Reports: no symptoms Endocrine: Reports: no symptoms Hematologic/Lymphatic: Reports: no symptoms Allergies: Coded Allergies: No Known Allergies (Unverified , 12/10/15) All Systems: reviewed and negative except above Subjective no new complaints. denies sob. unable to get iv access. Objective Last 24 Hour Vital Signs Date Time Temp Pulse Resp B/P (MAP) Pulse Ox O2 Delivery O2 Flow Rate FiO2 03/22/18 08:14 91 153/74 03/22/18 07:10 100 18 100 03/22/18 07:10 Nasal Cannula 2.0 28 03/22/18 07:10 100 Nasal Cannula 2.0 28 03/22/18 05:30 81 21 100 Full Face 30 03/22/18 04:00 95 03/22/18 04:00 30 03/22/18 04:00 Bi-pap Bi-pap Bi-pap 03/22/18 03:57 98.7 90 17 150/86 (107) 97 03/22/18 03:30 85 22 98 Full Face 30 03/22/18 01:30 78 18 99 Full Face 30 03/22/18 00:00 30 03/22/18 00:00 Bi-pap Bi-pap Bi-pap 03/22/18 00:00 97.6 85 16 148/76 (100) 100 03/22/18 00:00 85 03/21/18 23:18 98 2.0 28 03/21/18 21:13 92 100 2.0 28 03/21/18 20:00 102 03/21/18 20:00 30 03/21/18 20:00 97.4 102 16 150/88 (108) 100 03/21/18 20:00 Bi-pap Bi-pap Bi-pap 03/21/18 19:33 Bi-pap 30 03/21/18 19:33 99 Bi-pap 30 03/21/18 19:30 87 16 99 Full Face 30 03/21/18 16:37 81 16 97 Full Face 30 03/21/18 16:29 82 03/21/18 16:00 97.6 82 20 112/59 (76) 100 03/21/18 16:00 Bi-pap Bi-pap Bi-pap 03/21/18 16:00 30 03/21/18 14:36 72 23 98 Full Face 30 03/21/18 13:43 77 03/21/18 12:40 77 22 98 Full Face 30 03/21/18 12:00 98.0 79 20 125/80 (95) 100 03/21/18 12:00 30 03/21/18 12:00 Bi-pap Bi-pap Bi-pap 03/21/18 11:05 75 18 99 Full Face 30 03/21/18 09:00 77 139/73 03/21/18 08:41 77 20 98 Full Face 30 Intake and Output 03/21/18 03/22/18 19:00 07:00 Intake Total 100 ml 480 ml Output Total 500 ml 600 ml Balance -400 ml -120 ml Intake Oral 100 ml 480 ml Output Urine Total 500 ml 600 ml # Voids 1 Laboratory Tests 03/21/18 09:49: Arterial Blood pH 7.310L, Arterial Blood Partial Pressure CO2 71.3*H, Arterial Blood Partial Pressure O2 104.6H, Arterial Blood HCO3 35.1H, Arterial Blood Oxygen Saturation 97.7, Arterial Blood Base Excess 6.4H, Tarun Test Positive Height (Feet): 5 Height (Inches): 6.00 Weight (Pounds): 218 Objective General Appearance: WD/WN, resting. on bipap, opens eyes. alert. follows commands Neck: supple Cardiovascular: regular rhythm Respiratory/Chest: lungs mostly clear, few rhonchi Abdomen: normal bowel sounds, non tender, soft, no organomegaly Edema: no edema noted Arm (L), no edema noted Arm (R), no edema noted Leg (L), no edema noted Leg (R), no edema noted Pedal (L), no edema noted Pedal (R), no edema noted Generalized Manan Byrd MD Mar 22, 2018 08:25
--- NOTE | 2018-03-22 10:13 | Pulmonology Progress Note ---
Assessment/Plan Assessment/Plan PULMONARY PROGRESS NOTE IMPRESSION: Acute on chronic respiratory failure, COPD with acute exacerbation, chronic respiratory acidosis and associated hypoxemia, cardiomegaly, pleural effusion and pulmonary edema, protein-calorie malnutrition. loculated pleural effusion likely PLAN exam reviewed and same still with CO2 retention and with little improvement respiratory care - as is BIPAP continuous for now with Co2 acute retention- hope to avoid intubation but may be needed guarded nutrition DVT prophylaxis Diamox trail monitor acid base closely defer dc with acute retention as patient at risk for intubation; agree with LTAC medications/laboratory data/nursing notes reviewed in detail note reviewed and edited care discussed with RN and RT Objective: GENERAL: drowsy; no distress; on oxygen no distress; comfortable NECK: Supple. No adenopathy. No jugular venous distention. LUNGS: Moderate breath sounds. no rhonchi. No wheezes. stable but reduced CARDIAC: S1 and S2. Regular rhythm without murmurs, rubs, or gallops. ABDOMEN: Soft, nontender, nondistended. no HSM; EXTREMITIES: No cyanosis, clubbing; trace edema. NEUROLOGIC: Grossly nonfocal, awake alert reviewed and examined Vital Signs Noted Subjective ROS Limited/Unobtainable: No Allergies: Coded Allergies: No Known Allergies (Unverified , 12/10/15) Objective Last 24 Hour Vital Signs Date Time Temp Pulse Resp B/P (MAP) Pulse Ox O2 Delivery O2 Flow Rate FiO2 03/22/18 08:49 105 19 100 Full Face 30 03/22/18 08:14 91 153/74 03/22/18 07:10 100 18 100 03/22/18 07:10 Nasal Cannula 2.0 28 03/22/18 07:10 100 Nasal Cannula 2.0 28 03/22/18 05:30 81 21 100 Full Face 30 03/22/18 04:00 95 03/22/18 04:00 30 03/22/18 04:00 Bi-pap Bi-pap Bi-pap 03/22/18 03:57 98.7 90 17 150/86 (107) 97 03/22/18 03:30 85 22 98 Full Face 30 03/22/18 01:30 78 18 99 Full Face 30 03/22/18 00:00 30 03/22/18 00:00 Bi-pap Bi-pap Bi-pap 03/22/18 00:00 97.6 85 16 148/76 (100) 100 03/22/18 00:00 85 03/21/18 23:18 98 2.0 28 03/21/18 21:13 92 100 2.0 28 03/21/18 20:00 102 03/21/18 20:00 30 03/21/18 20:00 97.4 102 16 150/88 (108) 100 03/21/18 20:00 Bi-pap Bi-pap Bi-pap 03/21/18 19:33 Bi-pap 30 03/21/18 19:33 99 Bi-pap 30 03/21/18 19:30 87 16 99 Full Face 30 03/21/18 16:37 81 16 97 Full Face 30 03/21/18 16:29 82 03/21/18 16:00 97.6 82 20 112/59 (76) 100 03/21/18 16:00 Bi-pap Bi-pap Bi-pap 03/21/18 16:00 30 03/21/18 14:36 72 23 98 Full Face 30 03/21/18 13:43 77 03/21/18 12:40 77 22 98 Full Face 30 03/21/18 12:00 98.0 79 20 125/80 (95) 100 03/21/18 12:00 30 03/21/18 12:00 Bi-pap Bi-pap Bi-pap 03/21/18 11:05 75 18 99 Full Face 30 Intake and Output 03/21/18 03/22/18 19:00 07:00 Intake Total 100 ml 480 ml Output Total 500 ml 600 ml Balance -400 ml -120 ml Intake Oral 100 ml 480 ml Output Urine Total 500 ml 600 ml # Voids 1 Laboratory Tests 03/22/18 08:39: Arterial Blood pH 7.205*L, Arterial Blood Partial Pressure CO2 98.9*H, Arterial Blood Partial Pressure O2 51.7L, Arterial Blood HCO3 38.2H, Arterial Blood Oxygen Saturation 83.9*L, Arterial Blood Base Excess 6.3H, Tarun Test Positive Current Medications Medications (Trade) Dose Ordered Sig/Isabella Route PRN Reason Start Time Stop Time Status Last Admin Dose Admin Acetaminophen (Tylenol) 650 mg Q6H PRN ORAL Mild Pain/Temp > 100.5 03/15/18 11:18 04/05/18 11:17 03/20/18 01:05 Bisacodyl (Dulcolax) 10 mg DAILYPRN PRN RECTAL Constipation 03/15/18 11:18 04/01/18 11:17 03/18/18 08:49 Chlorhexidine Gluconate (Yadira-Hex 2%) 1 applic DAILY@2000 TOPIC 03/22/18 20:00 04/21/18 19:59 Diltiazem HCl (Cardizem CD) 240 mg DAILY ORAL 03/16/18 09:00 03/27/18 08:59 03/22/18 08:14 Diphenhydramine HCl (Benadryl) 25 mg Q6H PRN ORAL Itching 03/15/18 12:15 04/05/18 06:14 03/22/18 01:32 Heparin Sodium/ Sodium Chloride (Heparin 2000 units/Ns 1000ml premix) 2,000 unit ONCE PRN INJ picc line placement 03/22/18 07:00 03/23/18 06:59 Lidocaine HCl (Xylocaine 1% 30ml) 30 ml ONCE PRN INJ picc line placement 03/22/18 07:00 03/23/18 06:59 Ondansetron HCl (Zofran) 4 mg Q4H PRN IVP Nausea & Vomiting 03/16/18 09:00 04/15/18 08:59 03/16/18 08:59 Pantoprazole (Protonix) 40 mg DAILY ORAL 03/16/18 09:00 03/29/18 08:59 03/22/18 08:09 Prednisone (predniSONE) 30 mg DAILY ORAL 03/22/18 09:00 04/21/18 08:59 03/22/18 08:15 Ashvin Serrano MD Mar 22, 2018 10:13
[2018-03-22 12:00] VITALS: BP 158/92
--- NOTE | 2018-03-22 12:03 | Urology Progress Note ---
Assessment/Plan Assessment/Plan 1. Gross hematuria, improved. 2. Urinary retention hx. 3. Probable neurogenic bladder. 4. Pyuria. 5. Proteinuria. 6. Possible hemorrhagic cystitis. monitor clinically no active bleeding s/p abx off anticoagulation, ok to resume if needed monitor h/h cysto later consider CT check urine cx PRN Subjective Allergies: Coded Allergies: No Known Allergies (Unverified , 12/10/15) Subjective all noted, feels fair, urine reported grossly clear Objective Last 24 Hour Vital Signs Date Time Temp Pulse Resp B/P (MAP) Pulse Ox O2 Delivery O2 Flow Rate FiO2 03/22/18 11:30 103 18 99 Full Face 30 03/22/18 08:49 105 19 100 Full Face 30 03/22/18 08:14 91 153/74 03/22/18 08:00 30 03/22/18 08:00 102 03/22/18 08:00 Bi-pap Bi-pap Bi-pap 03/22/18 08:00 97.5 90 17 150/94 (112) 97 03/22/18 07:10 100 18 100 03/22/18 07:10 Nasal Cannula 2.0 28 03/22/18 07:10 100 Nasal Cannula 2.0 28 03/22/18 05:30 81 21 100 Full Face 30 03/22/18 04:00 95 03/22/18 04:00 30 03/22/18 04:00 Bi-pap Bi-pap Bi-pap 03/22/18 03:57 98.7 90 17 150/86 (107) 97 03/22/18 03:30 85 22 98 Full Face 30 03/22/18 01:30 78 18 99 Full Face 30 03/22/18 00:00 30 03/22/18 00:00 Bi-pap Bi-pap Bi-pap 03/22/18 00:00 97.6 85 16 148/76 (100) 100 03/22/18 00:00 85 03/21/18 23:18 98 2.0 28 03/21/18 21:13 92 100 2.0 28 03/21/18 20:00 102 03/21/18 20:00 30 03/21/18 20:00 97.4 102 16 150/88 (108) 100 03/21/18 20:00 Bi-pap Bi-pap Bi-pap 03/21/18 19:33 Bi-pap 30 03/21/18 19:33 99 Bi-pap 30 03/21/18 19:30 87 16 99 Full Face 30 03/21/18 16:37 81 16 97 Full Face 30 03/21/18 16:29 82 03/21/18 16:00 97.6 82 20 112/59 (76) 100 03/21/18 16:00 Bi-pap Bi-pap Bi-pap 03/21/18 16:00 30 03/21/18 14:36 72 23 98 Full Face 30 03/21/18 13:43 77 03/21/18 12:40 77 22 98 Full Face 30 Intake and Output 03/21/18 03/22/18 19:00 07:00 Intake Total 100 ml 480 ml Output Total 500 ml 600 ml Balance -400 ml -120 ml Intake Oral 100 ml 480 ml Output Urine Total 500 ml 600 ml # Voids 1 Microbiology Date/Time Source Procedure Growth Status 02/03/18 15:30 Blood Blood Culture - Final NO GROWTH AFTER 5 DAYS Complete 02/20/18 18:40 Stool Clostridium difficile Toxin Assay - Final Complete 02/20/18 12:50 Urine,Clean Catch Urine Culture - Final NO GROWTH AFTER 48 HOURS Complete 02/03/18 15:30 Rectal Mucosa - Final NO CARBAPENEM-RESISTANT ENTEROBACTERI... Complete Current Medications Medications (Trade) Dose Ordered Sig/Isabella Route PRN Reason Start Time Stop Time Status Last Admin Dose Admin Acetaminophen (Tylenol) 650 mg Q6H PRN ORAL Mild Pain/Temp > 100.5 03/15/18 11:18 04/05/18 11:17 03/20/18 01:05 Bisacodyl (Dulcolax) 10 mg DAILYPRN PRN RECTAL Constipation 03/15/18 11:18 04/01/18 11:17 03/18/18 08:49 Chlorhexidine Gluconate (Yadira-Hex 2%) 1 applic DAILY@1999 TOPIC 03/22/18 20:00 04/21/18 19:59 Diltiazem HCl (Cardizem CD) 240 mg DAILY ORAL 03/16/18 09:00 03/27/18 08:59 03/22/18 08:14 Diphenhydramine HCl (Benadryl) 25 mg Q6H PRN ORAL Itching 03/15/18 12:15 04/05/18 06:14 03/22/18 01:32 Heparin Sodium/ Sodium Chloride (Heparin 2000 units/Ns 1000ml premix) 2,000 unit ONCE PRN INJ picc line placement 03/22/18 07:00 03/23/18 06:59 Lidocaine HCl (Xylocaine 1% 30ml) 30 ml ONCE PRN INJ picc line placement 03/22/18 07:00 03/23/18 06:59 Ondansetron HCl (Zofran) 4 mg Q4H PRN IVP Nausea & Vomiting 03/16/18 09:00 04/15/18 08:59 03/16/18 08:59 Pantoprazole (Protonix) 40 mg DAILY ORAL 03/16/18 09:00 03/29/18 08:59 03/22/18 08:09 Prednisone (predniSONE) 30 mg DAILY ORAL 03/22/18 09:00 04/21/18 08:59 03/22/18 08:15 Laboratory Tests 03/22/18 08:39: Arterial Blood pH 7.205*L, Arterial Blood Partial Pressure CO2 98.9*H, Arterial Blood Partial Pressure O2 51.7L, Arterial Blood HCO3 38.2H, Arterial Blood Oxygen Saturation 83.9*L, Arterial Blood Base Excess 6.3H, Tarun Test Positive 03/22/18 11:33: Arterial Blood pH 7.290L, Arterial Blood Partial Pressure CO2 83.3*H, Arterial Blood Partial Pressure O2 106.3H, Arterial Blood HCO3 39.2H, Arterial Blood Oxygen Saturation 97.9, Arterial Blood Base Excess 9.1*H, Tarun Test Positive Height (Feet): 5 Height (Inches): 6.00 Weight (Pounds): 218 Objective exam stable renal u/s (02/19) noted last CXR noted Spenser Marc MD Mar 22, 2018 12:03
[2018-03-22 16:00] VITALS: BP 155/73
[2018-03-22 20:00] VITALS: BP 157/91
[2018-03-22] MEDS: Dyna-Hex 2% Top Sol 2oz TOPIC SCH (20:52)
[2018-03-23] VITALS: BP 141/88
[2018-03-23 04:00] VITALS: BP 159/88
[2018-03-23 08:10] VITALS: BP 139/83
[2018-03-23] MEDS: dilTIAZem HCl CD 240mg cap ORAL SCH (08:14)
--- NOTE | 2018-03-23 10:01 | Critical Care Progress Note ---
Assessment/Plan Assessment/Plan IMPRESSION: Acute on chronic respiratory failure, COPD with acute exacerbation, chronic respiratory acidosis and associated hypoxemia, cardiomegaly, pleural effusion and pulmonary edema, protein-calorie malnutrition. loculated pleural effusion likely PLAN exam reviewed and same still with CO2 retention and with little improvement and unable to optimize respiratory care - optimized but not improving BIPAP continuous for now with Co2 acute retention- hope to avoid intubation but may be needed keep in RAMSES guarded nutrition DVT prophylaxis Diamox trial not effective monitor acid base closely defer dc with acute retention as patient at risk for intubation; agree with LTAC recheck ABG now medications/laboratory data/nursing notes reviewed in detail note reviewed and edited care discussed with RN and RT Critical Care - Subjective Interval Events: care noted retaining CO2 acidemic Condition: unchanged EKG Rhythm: Sinus Rhythm I&O: Intake and Output 03/22/18 03/23/18 19:00 07:00 Intake Total 240 ml Output Total 425 ml Balance -185 ml Intake Oral 240 ml Output Urine Total 425 ml Critical Care - Objective ET-Tube: 7.5 ET Position: 24 Last 24 Hour Vital Signs Date Time Temp Pulse Resp B/P (MAP) Pulse Ox O2 Delivery O2 Flow Rate FiO2 03/23/18 08:14 103 139/83 03/23/18 08:12 3.0 03/23/18 08:10 97.0 103 18 139/83 (101) 99 03/23/18 07:15 Nasal Cannula 2.0 28 03/23/18 07:15 100 28 03/23/18 07:15 100 Nasal Cannula 2.0 28 03/23/18 05:21 92 17 98 Full Face 25 03/23/18 04:00 97.7 100 19 159/88 (111) 99 03/23/18 04:00 89 03/23/18 04:00 25 03/23/18 04:00 Bi-pap Bi-pap Bi-pap 03/23/18 03:05 95 18 97 Full Face 25 03/23/18 00:42 88 16 97 Full Face 25 03/23/18 00:00 94 03/23/18 00:00 Bi-pap Bi-pap Bi-pap 03/23/18 00:00 25 03/23/18 00:00 98.1 93 17 141/88 (105) 99 03/22/18 23:16 89 18 97 Full Face 25 03/22/18 21:08 86 18 98 Full Face 25 03/22/18 20:00 97.3 86 20 157/91 (113) 97 03/22/18 20:00 97 03/22/18 20:00 25 03/22/18 20:00 Bi-pap Bi-pap Bi-pap 03/22/18 19:39 99 25 03/22/18 19:38 Bi-pap 03/22/18 19:38 Bi-pap 03/22/18 19:30 104 20 99 Full Face 30 03/22/18 16:54 81 20 100 Full Face 30 03/22/18 16:00 30 03/22/18 16:00 93 03/22/18 16:00 Bi-pap Bi-pap Bi-pap 03/22/18 16:00 97.7 88 22 155/73 (100) 99 03/22/18 14:55 79 18 100 Full Face 30 03/22/18 12:40 101 18 99 03/22/18 12:00 30 03/22/18 12:00 107 03/22/18 12:00 Bi-pap Bi-pap Bi-pap 03/22/18 12:00 97.7 101 20 158/92 (114) 98 03/22/18 11:30 103 18 99 Full Face 30 Labs: Laboratory Tests Test 03/22/18 11:33 Arterial Blood pH 7.290 (7.350-7.450) Arterial Blood Partial Pressure CO2 83.3 mmHg (35.0-45.0) *H Arterial Blood Partial Pressure O2 106.3 mmHg (75.0-100.0) H Arterial Blood HCO3 39.2 mmol/L (22.0-26.0) H Arterial Blood Oxygen Saturation 97.9 % (95-100) Arterial Blood Base Excess 9.1 (-2-2) *H Tarun Test Positive Objective: GENERAL: no distress; on oxygen no distress; appears comfortable NECK: Supple. No adenopathy. No jugular venous distention. LUNGS: Moderate breath sounds. no rhonchi. No wheezes. stable CARDIAC: S1 and S2. Regular rhythm without murmurs, rubs, or gallops. ABDOMEN: Soft, nontender, nondistended. no HSM; EXTREMITIES: No cyanosis, clubbing; trace edema. NEUROLOGIC: Grossly nonfocal, awake alert reviewed and examined Accucheck: 140 Ishaaya,Mk M MD Mar 23, 2018 10:01
--- NOTE | 2018-03-23 10:56 | Urology Progress Note ---
Assessment/Plan Assessment/Plan 1. Gross hematuria, improved. 2. Urinary retention hx. 3. Probable neurogenic bladder. 4. Pyuria. 5. Proteinuria. 6. Possible hemorrhagic cystitis. monitor clinically no active bleeding s/p abx off anticoagulation, ok to resume if needed monitor h/h cysto later consider CT check urine cx PRN Subjective Allergies: Coded Allergies: No Known Allergies (Unverified , 12/10/15) Subjective all noted, feels fair, urine reported grossly clear Objective Last 24 Hour Vital Signs Date Time Temp Pulse Resp B/P (MAP) Pulse Ox O2 Delivery O2 Flow Rate FiO2 03/23/18 08:14 103 139/83 03/23/18 08:12 3.0 03/23/18 08:10 97.0 103 18 139/83 (101) 99 03/23/18 07:53 119 03/23/18 07:15 Nasal Cannula 2.0 28 03/23/18 07:15 100 28 03/23/18 07:15 100 Nasal Cannula 2.0 28 03/23/18 05:21 92 17 98 Full Face 25 03/23/18 04:00 97.7 100 19 159/88 (111) 99 03/23/18 04:00 89 03/23/18 04:00 25 03/23/18 04:00 Bi-pap Bi-pap Bi-pap 03/23/18 03:05 95 18 97 Full Face 25 03/23/18 00:42 88 16 97 Full Face 25 03/23/18 00:00 94 03/23/18 00:00 Bi-pap Bi-pap Bi-pap 03/23/18 00:00 25 03/23/18 00:00 98.1 93 17 141/88 (105) 99 03/22/18 23:16 89 18 97 Full Face 25 03/22/18 21:08 86 18 98 Full Face 25 03/22/18 20:00 97.3 86 20 157/91 (113) 97 03/22/18 20:00 97 03/22/18 20:00 25 03/22/18 20:00 Bi-pap Bi-pap Bi-pap 03/22/18 19:39 99 25 03/22/18 19:38 Bi-pap 03/22/18 19:38 Bi-pap 03/22/18 19:30 104 20 99 Full Face 30 03/22/18 16:54 81 20 100 Full Face 30 03/22/18 16:00 30 03/22/18 16:00 93 03/22/18 16:00 Bi-pap Bi-pap Bi-pap 03/22/18 16:00 97.7 88 22 155/73 (100) 99 03/22/18 14:55 79 18 100 Full Face 30 03/22/18 12:40 101 18 99 03/22/18 12:00 30 03/22/18 12:00 107 03/22/18 12:00 Bi-pap Bi-pap Bi-pap 03/22/18 12:00 97.7 101 20 158/92 (114) 98 03/22/18 11:30 103 18 99 Full Face 30 Intake and Output 03/22/18 03/23/18 19:00 07:00 Intake Total 240 ml Output Total 425 ml Balance -185 ml Intake Oral 240 ml Output Urine Total 425 ml Microbiology Date/Time Source Procedure Growth Status 02/03/18 15:30 Blood Blood Culture - Final NO GROWTH AFTER 5 DAYS Complete 02/20/18 18:40 Stool Clostridium difficile Toxin Assay - Final Complete 02/20/18 12:50 Urine,Clean Catch Urine Culture - Final NO GROWTH AFTER 48 HOURS Complete 02/03/18 15:30 Rectal Mucosa - Final NO CARBAPENEM-RESISTANT ENTEROBACTERI... Complete Current Medications Medications (Trade) Dose Ordered Sig/Isabella Route PRN Reason Start Time Stop Time Status Last Admin Dose Admin Acetaminophen (Tylenol) 650 mg Q6H PRN ORAL Mild Pain/Temp > 100.5 03/15/18 11:18 04/05/18 11:17 03/22/18 20:53 Bisacodyl (Dulcolax) 10 mg DAILYPRN PRN RECTAL Constipation 03/15/18 11:18 04/01/18 11:17 03/18/18 08:49 Chlorhexidine Gluconate (Yadira-Hex 2%) 1 applic DAILY@1999 TOPIC 03/22/18 20:00 04/21/18 19:59 03/22/18 20:52 Diltiazem HCl (Cardizem CD) 240 mg DAILY ORAL 03/16/18 09:00 03/27/18 08:59 03/23/18 08:14 Diphenhydramine HCl (Benadryl) 25 mg Q6H PRN ORAL Itching 03/15/18 12:15 04/05/18 06:14 03/22/18 01:32 Ondansetron HCl (Zofran) 4 mg Q4H PRN IVP Nausea & Vomiting 03/16/18 09:00 04/15/18 08:59 03/16/18 08:59 Pantoprazole (Protonix) 40 mg DAILY ORAL 03/16/18 09:00 03/29/18 08:59 03/23/18 08:13 Prednisone (predniSONE) 30 mg DAILY ORAL 03/22/18 09:00 04/21/18 08:59 03/23/18 08:15 Laboratory Tests 03/22/18 11:33: Arterial Blood pH 7.290L, Arterial Blood Partial Pressure CO2 83.3*H, Arterial Blood Partial Pressure O2 106.3H, Arterial Blood HCO3 39.2H, Arterial Blood Oxygen Saturation 97.9, Arterial Blood Base Excess 9.1*H, Tarun Test Positive 03/23/18 10:00: Arterial Blood pH 7.318L, Arterial Blood Partial Pressure CO2 76.2*H, Arterial Blood Partial Pressure O2 83.2, Arterial Blood HCO3 38.2H, Arterial Blood Oxygen Saturation 96.0, Arterial Blood Base Excess 8.9H, Tarun Test Positive Height (Feet): 5 Height (Inches): 6.00 Weight (Pounds): 219 Objective exam stable renal u/s (02/19) noted last CXR noted Spenser Marc MD Mar 23, 2018 10:56
[2018-03-23 12:00] VITALS: BP 154/73
[2018-03-23] MEDS ORDERED: NS 275ml ONE (15:56)
[2018-03-23 16:19] VITALS: BP 145/88
[2018-03-23 20:00] VITALS: BP 167/83
[2018-03-23] MEDS: Dyna-Hex 2% Top Sol 2oz TOPIC SCH (20:00)
[2018-03-24] VITALS: BP 166/107
[2018-03-24 04:00] VITALS: BP 153/88
[2018-03-24 08:00] VITALS: BP 146/85
--- NOTE | 2018-03-24 08:01 | Critical Care Progress Note ---
Assessment/Plan Assessment/Plan IMPRESSION: Acute on chronic respiratory failure, COPD with acute exacerbation, chronic respiratory acidosis and associated hypoxemia, cardiomegaly, pleural effusion and pulmonary edema, protein-calorie malnutrition. loculated pleural effusion likely PLAN exam reviewed and same still with CO2 retention but slightly improved respiratory care - optimized but not improving BIPAP as is keep in RAMSES guarded nutrition DVT prophylaxis Diamox trial not effective- will dc monitor acid base closely ABG medications/laboratory data/nursing notes reviewed in detail note reviewed and edited care discussed with RN and RT Critical Care - Subjective Condition: unchanged EKG Rhythm: Sinus Rhythm I&O: Intake and Output 03/23/18 03/24/18 19:00 07:00 Intake Total 480 ml 360 ml Output Total 601 ml 650 ml Balance -121 ml -290 ml Intake Oral 480 ml 360 ml Output Urine Total 600 ml 650 ml Stool Total 1 ml # Bowel Movements 1 2 Critical Care - Objective ET-Tube: 7.5 ET Position: 24 Last 24 Hour Vital Signs Date Time Temp Pulse Resp B/P (MAP) Pulse Ox O2 Delivery O2 Flow Rate FiO2 03/24/18 05:10 94 16 98 Facial 25 03/24/18 04:00 93 03/24/18 04:00 98.4 98 18 153/88 (109) 98 03/24/18 04:00 25 03/24/18 04:00 Bi-pap 3.0 Nasal Cannula Bi-pap 03/24/18 03:25 93 21 95 Facial 25 03/24/18 01:20 96 23 99 Facial 25 03/24/18 00:00 97 03/24/18 00:00 97.3 102 22 166/107 (126) 97 03/23/18 23:00 97 23 96 Facial 25 03/23/18 21:10 99 23 97 Facial 25 03/23/18 20:00 25 03/23/18 20:00 98.4 99 20 167/83 (111) 96 03/23/18 20:00 Bi-pap 3.0 Nasal Cannula Bi-pap 03/23/18 20:00 95 03/23/18 19:53 89 22 99 Facial 25 03/23/18 19:53 99 Bi-pap 25 03/23/18 19:53 Bi-pap 25 03/23/18 16:21 3.0 03/23/18 16:19 98.6 101 21 145/88 (107) 97 03/23/18 16:18 102 03/23/18 16:00 Bi-pap 3.0 Nasal Cannula Bi-pap 03/23/18 12:00 97.5 106 21 154/73 (100) 96 03/23/18 12:00 3.0 03/23/18 12:00 Bi-pap 3.0 Nasal Cannula Bi-pap 03/23/18 12:00 106 03/23/18 08:14 103 139/83 03/23/18 08:12 3.0 03/23/18 08:10 97.0 103 18 139/83 (101) 99 Labs: Laboratory Tests Test 03/23/18 10:00 Arterial Blood pH 7.318 (7.350-7.450) Arterial Blood Partial Pressure CO2 76.2 mmHg (35.0-45.0) *H Arterial Blood Partial Pressure O2 83.2 mmHg (75.0-100.0) Arterial Blood HCO3 38.2 mmol/L (22.0-26.0) H Arterial Blood Oxygen Saturation 96.0 % (95-100) Arterial Blood Base Excess 8.9 (-2-2) H Tarun Test Positive Objective: GENERAL: no distress; on oxygen no distress; appears comfortable and awake NECK: Supple. No adenopathy. No jugular venous distention. LUNGS: Moderate breath sounds. no rhonchi. No wheezes. stable and same CARDIAC: S1 and S2. Regular rhythm without murmurs, rubs, or gallops. ABDOMEN: Soft, nontender, nondistended. no HSM; EXTREMITIES: No cyanosis, clubbing; trace edema. NEUROLOGIC: Grossly nonfocal, awake alert reviewed and examined Accucheck: 140 Mk Billings MD Mar 24, 2018 08:01
[2018-03-24] MEDS: dilTIAZem HCl CD 240mg cap ORAL SCH (09:00)
--- NOTE | 2018-03-24 09:22 | General Progress Note ---
Assessment/Plan Problem List: (1) COPD exacerbation ICD Codes: J44.1 - Chronic obstructive pulmonary disease with (acute) exacerbation SNOMED: 755393013 (2) HTN (hypertension) ICD Codes: I10 - Essential (primary) hypertension SNOMED: 29955299 (3) Hypoxia ICD Codes: R09.02 - Hypoxemia SNOMED: 219654702 (4) Elevated troponin ICD Codes: R74.8 - Abnormal levels of other serum enzymes SNOMED: 003165326, 044184123, 450833124 (5) Renal insufficiency ICD Codes: N28.9 - Disorder of kidney and ureter, unspecified SNOMED: 425652771, 323019994 (6) Respiratory failure ICD Codes: J96.90 - Respiratory failure, unspecified, unspecified whether with hypoxia or hypercapnia SNOMED: 368934092 Qualifiers: Qualified Codes: J96.02 - Acute respiratory failure with hypercapnia (7) Right lower lobe pneumonia ICD Codes: J18.1 - Lobar pneumonia, unspecified organism SNOMED: 433457195 Qualifiers: Qualified Codes: J18.1 - Lobar pneumonia, unspecified organism Status: stable, progressing Assessment/Plan resp rx o2 bipap per pulm picc line po steroids- no iv access keep dry monitor cxr no ready for dc to snf but can go to ltac Subjective ROS Limited/Unobtainable: No Constitutional: Reports: malaise, weakness HEENT: Reports: no symptoms Cardiovascular: Reports: no symptoms Respiratory: Reports: shortness of breath Gastrointestinal/Abdominal: Reports: no symptoms Genitourinary: Reports: no symptoms Neurologic/Psychiatric: Reports: no symptoms Endocrine: Reports: no symptoms Hematologic/Lymphatic: Reports: no symptoms Allergies: Coded Allergies: No Known Allergies (Unverified , 12/10/15) All Systems: reviewed and negative except above Subjective no new complaints. sob only when off bipap. no fevers or chills. no chest pain . Objective Last 24 Hour Vital Signs Date Time Temp Pulse Resp B/P (MAP) Pulse Ox O2 Delivery O2 Flow Rate FiO2 03/24/18 08:00 102 03/24/18 05:10 94 16 98 Facial 25 03/24/18 04:00 93 03/24/18 04:00 98.4 98 18 153/88 (109) 98 03/24/18 04:00 25 03/24/18 04:00 Bi-pap 3.0 Nasal Cannula Bi-pap 03/24/18 03:25 93 21 95 Facial 25 03/24/18 01:20 96 23 99 Facial 25 03/24/18 00:00 97 03/24/18 00:00 97.3 102 22 166/107 (126) 97 03/23/18 23:00 97 23 96 Facial 25 03/23/18 21:10 99 23 97 Facial 25 03/23/18 20:00 25 03/23/18 20:00 98.4 99 20 167/83 (111) 96 03/23/18 20:00 Bi-pap 3.0 Nasal Cannula Bi-pap 03/23/18 20:00 95 03/23/18 19:53 89 22 99 Facial 25 03/23/18 19:53 99 Bi-pap 25 03/23/18 19:53 Bi-pap 25 03/23/18 16:21 3.0 03/23/18 16:19 98.6 101 21 145/88 (107) 97 03/23/18 16:18 102 03/23/18 16:00 Bi-pap 3.0 Nasal Cannula Bi-pap 03/23/18 12:00 97.5 106 21 154/73 (100) 96 03/23/18 12:00 3.0 03/23/18 12:00 Bi-pap 3.0 Nasal Cannula Bi-pap 03/23/18 12:00 106 Intake and Output 03/23/18 03/24/18 19:00 07:00 Intake Total 480 ml 360 ml Output Total 601 ml 650 ml Balance -121 ml -290 ml Intake Oral 480 ml 360 ml Output Urine Total 600 ml 650 ml Stool Total 1 ml # Bowel Movements 1 2 Laboratory Tests 03/23/18 10:00: Arterial Blood pH 7.318L, Arterial Blood Partial Pressure CO2 76.2*H, Arterial Blood Partial Pressure O2 83.2, Arterial Blood HCO3 38.2H, Arterial Blood Oxygen Saturation 96.0, Arterial Blood Base Excess 8.9H, Tarun Test Positive Height (Feet): 5 Height (Inches): 6.00 Weight (Pounds): 216 Objective General Appearance: WD/WN, resting. on bipap, opens eyes. alert. follows commands Neck: supple Cardiovascular: regular rhythm Respiratory/Chest: lungs mostly clear, few rhonchi Abdomen: normal bowel sounds, non tender, soft, no organomegaly Edema: no edema noted Arm (L), no edema noted Arm (R), no edema noted Leg (L), no edema noted Leg (R), no edema noted Pedal (L), no edema noted Pedal (R), no edema noted Generalized Manan Byrd MD Mar 24, 2018 09:22
--- NOTE | 2018-03-24 09:51 | Urology Progress Note ---
Assessment/Plan Assessment/Plan 1. Gross hematuria, improved. 2. Urinary retention hx. 3. Probable neurogenic bladder. 4. Pyuria. 5. Proteinuria. 6. Possible hemorrhagic cystitis. monitor clinically no active bleeding s/p abx off anticoagulation, ok to resume if needed monitor h/h cysto later consider CT check urine cx PRN Subjective Allergies: Coded Allergies: No Known Allergies (Unverified , 12/10/15) Subjective all noted, feels fair, urine reported grossly clear Objective Last 24 Hour Vital Signs Date Time Temp Pulse Resp B/P (MAP) Pulse Ox O2 Delivery O2 Flow Rate FiO2 03/24/18 08:00 102 03/24/18 05:10 94 16 98 Facial 25 03/24/18 04:00 93 03/24/18 04:00 98.4 98 18 153/88 (109) 98 03/24/18 04:00 25 03/24/18 04:00 Bi-pap 3.0 Nasal Cannula Bi-pap 03/24/18 03:25 93 21 95 Facial 25 03/24/18 01:20 96 23 99 Facial 25 03/24/18 00:00 97 03/24/18 00:00 97.3 102 22 166/107 (126) 97 03/23/18 23:00 97 23 96 Facial 25 03/23/18 21:10 99 23 97 Facial 25 03/23/18 20:00 25 03/23/18 20:00 98.4 99 20 167/83 (111) 96 03/23/18 20:00 Bi-pap 3.0 Nasal Cannula Bi-pap 03/23/18 20:00 95 03/23/18 19:53 89 22 99 Facial 25 03/23/18 19:53 99 Bi-pap 25 03/23/18 19:53 Bi-pap 25 03/23/18 16:21 3.0 03/23/18 16:19 98.6 101 21 145/88 (107) 97 03/23/18 16:18 102 03/23/18 16:00 Bi-pap 3.0 Nasal Cannula Bi-pap 03/23/18 12:00 97.5 106 21 154/73 (100) 96 03/23/18 12:00 3.0 03/23/18 12:00 Bi-pap 3.0 Nasal Cannula Bi-pap 03/23/18 12:00 106 Intake and Output 03/23/18 03/24/18 19:00 07:00 Intake Total 480 ml 360 ml Output Total 601 ml 650 ml Balance -121 ml -290 ml Intake Oral 480 ml 360 ml Output Urine Total 600 ml 650 ml Stool Total 1 ml # Bowel Movements 1 2 Microbiology Date/Time Source Procedure Growth Status 02/03/18 15:30 Blood Blood Culture - Final NO GROWTH AFTER 5 DAYS Complete 02/20/18 18:40 Stool Clostridium difficile Toxin Assay - Final Complete 02/20/18 12:50 Urine,Clean Catch Urine Culture - Final NO GROWTH AFTER 48 HOURS Complete 02/03/18 15:30 Rectal Mucosa - Final NO CARBAPENEM-RESISTANT ENTEROBACTERI... Complete Current Medications Medications (Trade) Dose Ordered Sig/Isabella Route PRN Reason Start Time Stop Time Status Last Admin Dose Admin Acetaminophen (Tylenol) 650 mg Q6H PRN ORAL Mild Pain/Temp > 100.5 03/15/18 11:18 04/05/18 11:17 03/22/18 20:53 Bisacodyl (Dulcolax) 10 mg DAILYPRN PRN RECTAL Constipation 03/15/18 11:18 04/01/18 11:17 03/18/18 08:49 Chlorhexidine Gluconate (Yadira-Hex 2%) 1 applic DAILY@2000 TOPIC 03/22/18 20:00 04/21/18 19:59 03/22/18 20:52 Diltiazem HCl (Cardizem CD) 240 mg DAILY ORAL 03/16/18 09:00 03/27/18 08:59 03/23/18 08:14 Diphenhydramine HCl (Benadryl) 25 mg Q6H PRN ORAL Itching 03/15/18 12:15 04/05/18 06:14 03/22/18 01:32 Ondansetron HCl (Zofran) 4 mg Q4H PRN IVP Nausea & Vomiting 03/16/18 09:00 04/15/18 08:59 03/16/18 08:59 Pantoprazole (Protonix) 40 mg DAILY ORAL 03/16/18 09:00 03/29/18 08:59 03/23/18 08:13 Prednisone (predniSONE) 30 mg DAILY ORAL 03/22/18 09:00 04/21/18 08:59 03/23/18 08:15 Laboratory Tests 03/23/18 10:00: Arterial Blood pH 7.318L, Arterial Blood Partial Pressure CO2 76.2*H, Arterial Blood Partial Pressure O2 83.2, Arterial Blood HCO3 38.2H, Arterial Blood Oxygen Saturation 96.0, Arterial Blood Base Excess 8.9H, Tarun Test Positive Height (Feet): 5 Height (Inches): 6.00 Weight (Pounds): 216 Objective exam stable renal u/s (02/19) noted last CXR noted Spenser Marc MD Mar 24, 2018 09:51
[2018-03-24 12:00] VITALS: BP 157/76
[2018-03-24 16:00] VITALS: BP 156/86
[2018-03-24] MEDS: Albuterol/Ipratropium 3ml neb HHN SCH ×2 (18:57→23:12)
[2018-03-24] MEDS: Dyna-Hex 2% Top Sol 2oz TOPIC SCH (19:48)
[2018-03-24 20:00] VITALS: BP 149/76
[2018-03-25] VITALS: BP 135/66
[2018-03-25] MEDS: Albuterol/Ipratropium 3ml neb HHN SCH ×6 (02:31→23:37)
--- NOTE | 2018-03-25 02:45 | Progress Note ---
DATE: 03/24/2018 CARDIOLOGY PROGRESS NOTE SUBJECTIVE: The patient remains on BiPAP at times. Acid-base parameters better. She is on tapering steroid. She continues BiPAP. OBJECTIVE: VITAL SIGNS: Blood pressure 149/76, pulse 98, respiratory rate 20. LUNGS: Diminished breath sounds. HEART: Regular rhythm and rate. Occasional ectopics. ABDOMEN: Soft. EXTREMITIES: Trace edema. LABORATORY DATA: ABG, pH 7.39, pCO2 of 71, pO2 of 70. IMPRESSION: 1. Respiratory acidosis, now compensated. 2. COPD, improved. 3. Acute myocardial ischemia, recovered following stabilization of respiratory parameters. 4. Paroxysmal atrial ectopy, nonsustained. PLAN: 1. Stable for LTAC. 2. Needs close monitoring. 3. Cardiopulmonary regimen reviewed and reconciled. 4. Ongoing BiPAP at night. 5. Steroid taper per code official. Ashvin Wu M.D. DR: Katelin JOB#: [id number] CC:
--- NOTE | 2018-03-25 03:00 | Progress Note ---
DATE: 03/21/2018 CARDIOLOGY PROGRESS NOTE SUBJECTIVE: The patient remains on BiPAP support. ABG results reviewed. No new distress. She continues on steroids. OBJECTIVE: VITAL SIGNS: Blood pressure 139/73, pulse 85, respirations 20, and afebrile. LUNGS: Diminished breath sounds. No wheezes. HEART: Regular rhythm and rate. Normal S1, S2. ABDOMEN: Soft. EXTREMITIES: Trace edema. LABORATORY DATA: White count 12.8 and hemoglobin 12.5. ABG, pH 7.31, pCO2 71, and pO2 104. IMPRESSION: 1. Acute on chronic respiratory acidosis. 2. Chronic obstructive pulmonary disease exacerbation. 3. Paroxysmal bronchospasm. 4. Acute myocardial ischemia precipitated by severe respiratory parameters and distress. 5. Paroxysmal atrial ectopy. PLAN: 1. Continue respiratory regimen in efforts to optimize acid-base parameters. 2. Maintain diltiazem. 3. BiPAP support. 4. Remains high risk. Ashvin Wu M.D. DR: COOPER JOB#: [id number] CC:
[2018-03-25 04:00] VITALS: BP 143/72
[2018-03-25 08:00] VITALS: BP 133/70
--- NOTE | 2018-03-25 08:20 | Critical Care Progress Note ---
Assessment/Plan Assessment/Plan IMPRESSION: Acute on chronic respiratory failure, COPD with acute exacerbation, chronic respiratory acidosis and associated hypoxemia, cardiomegaly, pleural effusion and pulmonary edema, protein-calorie malnutrition. loculated pleural effusion likely PLAN exam reviewed and same still with CO2 retention but slightly improved respiratory care - optimized but not improving BIPAP as is keep in RAMSES guarded nutrition DVT prophylaxis monitor acid base closely ABG noted and somewhat improved trilogy on discharge awaiting LTAC medications/laboratory data/nursing notes reviewed in detail note reviewed and edited care discussed with RN and RT Critical Care - Subjective Interval Events: acid base noted somewhat improved on oxygen ROS Limited/Unobtainable: Yes Condition: unchanged EKG Rhythm: Sinus Rhythm I&O: Intake and Output 03/24/18 03/25/18 19:00 07:00 Intake Total 860 ml 200 ml Output Total 300 ml 400 ml Balance 560 ml -200 ml Intake Oral 860 ml 200 ml Output Urine Total 300 ml 400 ml # Voids 1 # Bowel Movements 3 2 Critical Care - Objective ET-Tube: 7.5 ET Position: 24 Last 24 Hour Vital Signs Date Time Temp Pulse Resp B/P (MAP) Pulse Ox O2 Delivery O2 Flow Rate FiO2 03/25/18 07:04 87 26 100 Bi-pap 25 03/25/18 06:57 87 19 100 Bi-pap 25 03/25/18 06:43 Bi-pap 25 03/25/18 06:43 99 Bi-pap 25 03/25/18 06:41 91 19 99 Facial 25 03/25/18 04:55 77 16 98 Facial 25 03/25/18 04:00 97.9 91 20 143/72 (95) 98 03/25/18 04:00 25 03/25/18 04:00 Bi-pap Bi-pap 03/25/18 03:25 84 03/25/18 02:45 86 16 99 Bi-pap 25 03/25/18 02:32 90 16 99 Facial 25 03/25/18 02:31 90 16 99 Bi-pap 25 03/25/18 00:50 87 17 100 Facial 25 03/25/18 00:00 25 03/25/18 00:00 98.2 94 20 135/66 (89) 98 03/25/18 00:00 Bi-pap Bi-pap 03/24/18 23:28 90 11/25/18 23:20 88 19 100 Bi-pap 25 03/24/18 23:13 84 21 100 Facial 25 03/24/18 23:12 84 21 100 Bi-pap 25 03/24/18 21:02 88 16 98 Facial 25 03/24/18 20:00 28 03/24/18 20:00 Nasal Cannula 3.0 Nasal Cannula 3.0 03/24/18 20:00 97 03/24/18 20:00 97.9 98 20 149/76 (100) 96 03/24/18 19:14 91 20 100 Nasal Cannula 2.0 28 03/24/18 19:02 Nasal Cannula 2.0 28 03/24/18 19:01 100 Nasal Cannula 28 03/24/18 19:00 88 20 100 Nasal Cannula 2.0 28 03/24/18 18:59 88 20 Nasal Cannula 2.0 28 03/24/18 17:16 90 20 97 Facial 25 03/24/18 16:00 98.3 98 17 156/86 (109) 98 03/24/18 16:00 Bi-pap 3.0 Nasal Cannula Bi-pap 03/24/18 16:00 25 03/24/18 15:57 98 03/24/18 15:07 92 20 98 Facial 25 03/24/18 12:53 88 22 96 Facial 25 03/24/18 12:00 106 03/24/18 12:00 98.5 111 20 157/76 (103) 95 03/24/18 12:00 Bi-pap 3.0 Nasal Cannula Bi-pap 03/24/18 12:00 25 03/24/18 11:17 99 18 97 Facial 25 03/24/18 09:00 102 146/85 03/24/18 08:45 95 20 96 Facial 25 Objective: GENERAL: no distress; on oxygen no distress; appears comfortable and awake NECK: Supple. No adenopathy. No jugular venous distention. LUNGS: Moderate breath sounds. no rhonchi. No wheezes. stable and same CARDIAC: S1 and S2. Regular rhythm without murmurs, rubs, or gallops. ABDOMEN: Soft, nontender, nondistended. no HSM; EXTREMITIES: No cyanosis, clubbing; trace edema. NEUROLOGIC: Grossly nonfocal, awake alert reviewed and examined Accucheck: 140 Mk Billings MD Mar 25, 2018 08:20
--- NOTE | 2018-03-25 09:08 | General Progress Note ---
Assessment/Plan Problem List: (1) COPD exacerbation ICD Codes: J44.1 - Chronic obstructive pulmonary disease with (acute) exacerbation SNOMED: 698608218 (2) HTN (hypertension) ICD Codes: I10 - Essential (primary) hypertension SNOMED: 61906883 (3) Hypoxia ICD Codes: R09.02 - Hypoxemia SNOMED: 172750017 (4) Elevated troponin ICD Codes: R74.8 - Abnormal levels of other serum enzymes SNOMED: 543530870, 047721512, 902703616 (5) Renal insufficiency ICD Codes: N28.9 - Disorder of kidney and ureter, unspecified SNOMED: 789077916, 720438244 (6) Respiratory failure ICD Codes: J96.90 - Respiratory failure, unspecified, unspecified whether with hypoxia or hypercapnia SNOMED: 833872328 Qualifiers: Qualified Codes: J96.02 - Acute respiratory failure with hypercapnia (7) Right lower lobe pneumonia ICD Codes: J18.1 - Lobar pneumonia, unspecified organism SNOMED: 402197788 Qualifiers: Qualified Codes: J18.1 - Lobar pneumonia, unspecified organism Status: stable, progressing Assessment/Plan resp rx o2 bipap per pulm picc line po steroids- no iv access keep dry monitor cxr no ready for dc to snf but can go to ltac Subjective ROS Limited/Unobtainable: No Constitutional: Reports: malaise, weakness HEENT: Reports: no symptoms Cardiovascular: Reports: no symptoms Respiratory: Reports: no symptoms Gastrointestinal/Abdominal: Reports: no symptoms Genitourinary: Reports: no symptoms Neurologic/Psychiatric: Reports: no symptoms Endocrine: Reports: no symptoms Hematologic/Lymphatic: Reports: no symptoms Allergies: Coded Allergies: No Known Allergies (Unverified , 12/10/15) All Systems: reviewed and negative except above Subjective no new complaints. less sob.. no fevers or chills. no chest pain . Objective Last 24 Hour Vital Signs Date Time Temp Pulse Resp B/P (MAP) Pulse Ox O2 Delivery O2 Flow Rate FiO2 03/25/18 08:00 98.1 91 18 133/70 (91) 94 03/25/18 07:04 87 26 100 Bi-pap 25 03/25/18 06:57 87 19 100 Bi-pap 25 03/25/18 06:43 Bi-pap 25 03/25/18 06:43 99 Bi-pap 25 03/25/18 06:41 91 19 99 Facial 25 03/25/18 04:55 77 16 98 Facial 25 03/25/18 04:00 97.9 91 20 143/72 (95) 98 03/25/18 04:00 25 03/25/18 04:00 Bi-pap Bi-pap 03/25/18 03:25 84 03/25/18 02:45 86 16 99 Bi-pap 25 03/25/18 02:32 90 16 99 Facial 25 03/25/18 02:31 90 16 99 Bi-pap 25 03/25/18 00:50 87 17 100 Facial 25 03/25/18 00:00 25 03/25/18 00:00 98.2 94 20 135/66 (89) 98 03/25/18 00:00 Bi-pap Bi-pap 03/24/18 23:28 90 03/24/18 23:20 88 19 100 Bi-pap 25 03/24/18 23:13 84 21 100 Facial 25 03/24/18 23:12 84 21 100 Bi-pap 25 03/24/18 21:02 88 16 98 Facial 25 03/24/18 20:00 28 03/24/18 20:00 Nasal Cannula 3.0 Nasal Cannula 3.0 03/24/18 20:00 97 03/24/18 20:00 97.9 98 20 149/76 (100) 96 03/24/18 19:14 91 20 100 Nasal Cannula 2.0 28 03/24/18 19:02 Nasal Cannula 2.0 28 03/24/18 19:01 100 Nasal Cannula 28 03/24/18 19:00 88 20 100 Nasal Cannula 2.0 28 03/24/18 18:59 88 20 Nasal Cannula 2.0 28 03/24/18 17:16 90 20 97 Facial 25 03/24/18 16:00 98.3 98 17 156/86 (109) 98 03/24/18 16:00 Bi-pap 3.0 Nasal Cannula Bi-pap 03/24/18 16:00 25 03/24/18 15:57 98 03/24/18 15:07 92 20 98 Facial 25 03/24/18 12:53 88 22 96 Facial 25 03/24/18 12:00 106 03/24/18 12:00 98.5 111 20 157/76 (103) 95 03/24/18 12:00 Bi-pap 3.0 Nasal Cannula Bi-pap 03/24/18 12:00 25 03/24/18 11:17 99 18 97 Facial 25 Intake and Output 03/24/18 03/25/18 19:00 07:00 Intake Total 860 ml 200 ml Output Total 300 ml 400 ml Balance 560 ml -200 ml Intake Oral 860 ml 200 ml Output Urine Total 300 ml 400 ml # Voids 1 # Bowel Movements 3 2 Laboratory Tests 03/24/18 09:45: Arterial Blood pH 7.394, Arterial Blood Partial Pressure CO2 71.4*H, Arterial Blood Partial Pressure O2 70.5L, Arterial Blood HCO3 42.6*H, Arterial Blood Oxygen Saturation 94.4L, Arterial Blood Base Excess 14.2*H, Tarun Test Positive Height (Feet): 5 Height (Inches): 6.00 Weight (Pounds): 216 Objective General Appearance: WD/WN, resting. on bipap, opens eyes. alert. follows commands Neck: supple Cardiovascular: regular rhythm Respiratory/Chest: lungs mostly clear, few rhonchi Abdomen: normal bowel sounds, non tender, soft, no organomegaly Edema: no edema noted Arm (L), no edema noted Arm (R), no edema noted Leg (L), no edema noted Leg (R), no edema noted Pedal (L), no edema noted Pedal (R), no edema noted Generalized Manan Byrd MD Mar 25, 2018 09:08
--- NOTE | 2018-03-25 09:16 | Urology Progress Note ---
Assessment/Plan Assessment/Plan 1. Gross hematuria, improved. 2. Urinary retention hx. 3. Probable neurogenic bladder. 4. Pyuria. 5. Proteinuria. 6. Possible hemorrhagic cystitis. monitor clinically no active bleeding s/p abx off anticoagulation, ok to resume if needed monitor h/h cysto later consider CT check urine cx PRN Subjective Allergies: Coded Allergies: No Known Allergies (Unverified , 12/10/15) Subjective all noted, feels fair, urine reported grossly clear Objective Last 24 Hour Vital Signs Date Time Temp Pulse Resp B/P (MAP) Pulse Ox O2 Delivery O2 Flow Rate FiO2 03/25/18 08:00 98.1 91 18 133/70 (91) 94 03/25/18 07:04 87 26 100 Bi-pap 25 03/25/18 06:57 87 19 100 Bi-pap 25 03/25/18 06:43 Bi-pap 25 03/25/18 06:43 99 Bi-pap 25 03/25/18 06:41 91 19 99 Facial 25 03/25/18 04:55 77 16 98 Facial 25 03/25/18 04:00 97.9 91 20 143/72 (95) 98 03/25/18 04:00 25 03/25/18 04:00 Bi-pap Bi-pap 03/25/18 03:25 84 03/25/18 02:45 86 16 99 Bi-pap 25 03/25/18 02:32 90 16 99 Facial 25 03/25/18 02:31 90 16 99 Bi-pap 25 03/25/18 00:50 87 17 100 Facial 25 03/25/18 00:00 25 03/25/18 00:00 98.2 94 20 135/66 (89) 98 03/25/18 00:00 Bi-pap Bi-pap 03/24/18 23:28 90 03/24/18 23:20 88 19 100 Bi-pap 25 03/24/18 23:13 84 21 100 Facial 25 03/24/18 23:12 84 21 100 Bi-pap 25 03/24/18 21:02 88 16 98 Facial 25 03/24/18 20:00 28 03/24/18 20:00 Nasal Cannula 3.0 Nasal Cannula 3.0 03/24/18 20:00 97 03/24/18 20:00 97.9 98 20 149/76 (100) 96 03/24/18 19:14 91 20 100 Nasal Cannula 2.0 28 03/24/18 19:02 Nasal Cannula 2.0 28 03/24/18 19:01 100 Nasal Cannula 28 03/24/18 19:00 88 20 100 Nasal Cannula 2.0 28 03/24/18 18:59 88 20 Nasal Cannula 2.0 28 03/24/18 17:16 90 20 97 Facial 25 03/24/18 16:00 98.3 98 17 156/86 (109) 98 03/24/18 16:00 Bi-pap 3.0 Nasal Cannula Bi-pap 03/24/18 16:00 25 03/24/18 15:57 98 03/24/18 15:07 92 20 98 Facial 25 03/24/18 12:53 88 22 96 Facial 25 03/24/18 12:00 106 03/24/18 12:00 98.5 111 20 157/76 (103) 95 03/24/18 12:00 Bi-pap 3.0 Nasal Cannula Bi-pap 03/24/18 12:00 25 03/24/18 11:17 99 18 97 Facial 25 Intake and Output 03/24/18 03/25/18 19:00 07:00 Intake Total 860 ml 200 ml Output Total 300 ml 400 ml Balance 560 ml -200 ml Intake Oral 860 ml 200 ml Output Urine Total 300 ml 400 ml # Voids 1 # Bowel Movements 3 2 Microbiology Date/Time Source Procedure Growth Status 02/03/18 15:30 Blood Blood Culture - Final NO GROWTH AFTER 5 DAYS Complete 02/20/18 18:40 Stool Clostridium difficile Toxin Assay - Final Complete 02/20/18 12:50 Urine,Clean Catch Urine Culture - Final NO GROWTH AFTER 48 HOURS Complete 02/03/18 15:30 Rectal Mucosa - Final NO CARBAPENEM-RESISTANT ENTEROBACTERI... Complete Current Medications Medications (Trade) Dose Ordered Sig/Isabella Route PRN Reason Start Time Stop Time Status Last Admin Dose Admin Acetaminophen (Tylenol) 650 mg Q6H PRN ORAL Mild Pain/Temp > 100.5 03/15/18 11:18 04/05/18 11:17 03/22/18 20:53 Albuterol/ Ipratropium (Albuterol/ Ipratropium) 3 ml Q4HRT HHN 03/24/18 19:00 03/29/18 18:59 03/25/18 06:57 Bisacodyl (Dulcolax) 10 mg DAILYPRN PRN RECTAL Constipation 03/15/18 11:18 04/01/18 11:17 03/18/18 08:49 Chlorhexidine Gluconate (Yadira-Hex 2%) 1 applic DAILY@1999 TOPIC 03/22/18 20:00 04/21/18 19:59 03/24/18 19:48 Diltiazem HCl (Cardizem CD) 240 mg DAILY ORAL 03/16/18 09:00 03/27/18 08:59 03/24/18 09:00 Diphenhydramine HCl (Benadryl) 25 mg Q6H PRN ORAL Itching 03/15/18 12:15 04/05/18 06:14 03/22/18 01:32 Ondansetron HCl (Zofran) 4 mg Q4H PRN IVP Nausea & Vomiting 03/16/18 09:00 04/15/18 08:59 03/16/18 08:59 Pantoprazole (Protonix) 40 mg DAILY ORAL 03/16/18 09:00 03/29/18 08:59 03/24/18 09:00 Prednisone (predniSONE) 30 mg DAILY ORAL 03/22/18 09:00 04/21/18 08:59 03/24/18 09:00 Laboratory Tests 03/24/18 09:45: Arterial Blood pH 7.394, Arterial Blood Partial Pressure CO2 71.4*H, Arterial Blood Partial Pressure O2 70.5L, Arterial Blood HCO3 42.6*H, Arterial Blood Oxygen Saturation 94.4L, Arterial Blood Base Excess 14.2*H, Tarun Test Positive Height (Feet): 5 Height (Inches): 6.00 Weight (Pounds): 216 Objective exam stable renal u/s (02/19) noted last CXR noted Spenser Marc MD Mar 25, 2018 09:16
[2018-03-25] MEDS: dilTIAZem HCl CD 240mg cap ORAL SCH (09:46)
[2018-03-25 12:00] VITALS: BP 128/69
[2018-03-25 16:00] VITALS: BP 141/80
[2018-03-25 20:00] VITALS: BP 120/60
[2018-03-26] VITALS: BP 137/70
--- NOTE | 2018-03-26 02:00 | Progress Note ---
DATE: 03/25/2018 CARDIOLOGY PROGRESS NOTE SUBJECTIVE: The patient is less short of breath. Acid-base parameters had been worsening over the past few days, today better. OBJECTIVE: VITAL SIGNS: Blood pressure 133/70, pulse 91, respiratory rate 18. Monitored sinus, rare atrial ectopics. LUNGS: Diminished breath sounds. HEART: Regular rhythm and rate. ABDOMEN: Soft, no edema. IMPRESSION: 1. Tenuous, but improving. 2. Advanced lung disease complicated by atrial ectopy and episodes of acute ischemia, now stabilizing from cardiovascular standpoint. PLAN: 1. Plan of care in place. 2. Medication regimen reviewed. 3. Discharge planning continued. Ashvin Wu M.D. DR: CLEMENT JOB#: [id number] CC:
[2018-03-26] MEDS: Albuterol/Ipratropium 3ml neb HHN SCH ×5 (03:21→20:15)
[2018-03-26 04:00] VITALS: BP 135/65
--- NOTE | 2018-03-26 06:02 | General Progress Note ---
Assessment/Plan Problem List: (1) COPD exacerbation ICD Codes: J44.1 - Chronic obstructive pulmonary disease with (acute) exacerbation SNOMED: 457343065 (2) HTN (hypertension) ICD Codes: I10 - Essential (primary) hypertension SNOMED: 39447661 (3) Hypoxia ICD Codes: R09.02 - Hypoxemia SNOMED: 810385680 (4) Elevated troponin ICD Codes: R74.8 - Abnormal levels of other serum enzymes SNOMED: 383942634, 023494731, 145308346 (5) Renal insufficiency ICD Codes: N28.9 - Disorder of kidney and ureter, unspecified SNOMED: 587549494, 392526133 (6) Respiratory failure ICD Codes: J96.90 - Respiratory failure, unspecified, unspecified whether with hypoxia or hypercapnia SNOMED: 721393586 Qualifiers: Qualified Codes: J96.02 - Acute respiratory failure with hypercapnia (7) Right lower lobe pneumonia ICD Codes: J18.1 - Lobar pneumonia, unspecified organism SNOMED: 925498165 Qualifiers: Qualified Codes: J18.1 - Lobar pneumonia, unspecified organism Status: stable, progressing Assessment/Plan resp rx o2 bipap per pulm picc line po steroids- no iv access keep dry monitor cxr no ready for dc to snf but can go to [facility] Subjective ROS Limited/Unobtainable: No Constitutional: Reports: malaise, weakness HEENT: Reports: no symptoms Cardiovascular: Reports: no symptoms Respiratory: Reports: cough, shortness of breath Gastrointestinal/Abdominal: Reports: no symptoms Genitourinary: Reports: no symptoms Neurologic/Psychiatric: Reports: no symptoms Endocrine: Reports: no symptoms Hematologic/Lymphatic: Reports: no symptoms Allergies: Coded Allergies: No Known Allergies (Unverified , 12/10/15) All Systems: reviewed and negative except above Subjective no new complaints. less sob.. no fevers or chills. no chest pain. currently resting on bipap . Objective Last 24 Hour Vital Signs Date Time Temp Pulse Resp B/P (MAP) Pulse Ox O2 Delivery O2 Flow Rate FiO2 03/26/18 05:02 82 19 99 Facial 03/26/18 04:00 88 03/26/18 04:00 03/26/18 04:00 Bi-pap Bi-pap 03/26/18 03:30 86 23 100 Bi-pap 25 03/26/18 03:22 77 19 100 Bi-pap 25 03/26/18 03:21 77 18 100 Facial 25 03/26/18 01:51 78 19 99 Facial 25 03/26/18 00:00 97.0 86 20 137/70 (92) 100 03/26/18 00:00 25 03/26/18 00:00 82 03/26/18 00:00 Bi-pap Bi-pap 03/25/18 23:23 89 16 100 Bi-pap 25 03/25/18 23:10 80 19 100 Facial 25 03/25/18 23:10 83 19 100 Bi-pap 25 03/25/18 21:30 98 23 98 Facial 25 03/25/18 20:00 92 03/25/18 20:00 97.7 89 18 120/60 (80) 100 03/25/18 20:00 25 03/25/18 20:00 Bi-pap Bi-pap 03/25/18 19:58 99 20 100 Nasal Cannula 3.0 32 03/25/18 19:55 98 20 100 Nasal Cannula 3.0 32 03/25/18 19:54 98 20 100 03/25/18 19:53 Nasal Cannula 3.0 32 03/25/18 19:52 100 Nasal Cannula 3.0 32 03/25/18 16:33 94 17 97 Facial 25 03/25/18 16:00 Bi-pap Bi-pap 03/25/18 16:00 87 03/25/18 16:00 25 03/25/18 16:00 98.2 91 18 141/80 (100) 98 03/25/18 15:44 95 20 99 Bi-pap 25 03/25/18 15:36 92 22 97 Bi-pap 25 03/25/18 14:48 95 18 99 Facial 25 03/25/18 12:30 98 17 94 Facial 25 03/25/18 12:00 Bi-pap Bi-pap 03/25/18 12:00 94 03/25/18 12:00 98.2 94 20 128/69 (88) 90 03/25/18 12:00 25 03/25/18 10:57 89 18 100 Bi-pap 25 03/25/18 10:48 90 17 95 Bi-pap 25 03/25/18 10:47 90 16 95 Facial 25 03/25/18 09:46 93 133/70 03/25/18 09:24 93 20 96 Facial 25 03/25/18 08:00 95 03/25/18 08:00 Bi-pap Bi-pap 03/25/18 08:00 98.1 91 18 133/70 (91) 94 03/25/18 08:00 25 03/25/18 07:04 87 26 100 Bi-pap 25 03/25/18 06:57 87 19 100 Bi-pap 25 03/25/18 06:43 Bi-pap 25 03/25/18 06:43 99 Bi-pap 25 03/25/18 06:41 91 19 99 Facial 25 Intake and Output 03/25/18 03/26/18 18:59 06:59 Intake Total 450 ml Balance 450 ml Intake Oral 450 ml Height (Feet): 5 Height (Inches): 6.00 Weight (Pounds): 216 Objective General Appearance: WD/WN, resting. on bipap, opens eyes. alert. follows commands Neck: supple Cardiovascular: regular rhythm Respiratory/Chest: lungs mostly clear, few rhonchi Abdomen: normal bowel sounds, non tender, soft, no organomegaly Edema: no edema noted Arm (L), no edema noted Arm (R), no edema noted Leg (L), no edema noted Leg (R), no edema noted Pedal (L), no edema noted Pedal (R), no edema noted Generalized Manan Byrd MD Mar 26, 2018 06:01
--- NOTE | 2018-03-26 07:47 | Urology Progress Note ---
Assessment/Plan Assessment/Plan 1. Gross hematuria, improved. 2. Urinary retention hx. 3. Probable neurogenic bladder. 4. Pyuria. 5. Proteinuria. 6. Possible hemorrhagic cystitis. monitor clinically no active bleeding s/p abx off anticoagulation, ok to resume if needed monitor h/h cysto later consider CT check urine cx PRN check PVR PRN Subjective Allergies: Coded Allergies: No Known Allergies (Unverified , 12/10/15) Subjective all noted, feels fair, urine reported grossly clear Objective Last 24 Hour Vital Signs Date Time Temp Pulse Resp B/P (MAP) Pulse Ox O2 Delivery O2 Flow Rate FiO2 03/26/18 05:02 82 19 99 Facial 25 03/26/18 04:00 98.2 82 20 135/65 (88) 100 03/26/18 04:00 88 03/26/18 04:00 25 03/26/18 04:00 Bi-pap Bi-pap 03/26/18 03:30 86 23 100 Bi-pap 25 03/26/18 03:22 77 19 100 Bi-pap 25 03/26/18 03:21 77 18 100 Facial 25 03/26/18 01:51 78 19 99 Facial 25 03/26/18 00:00 97.0 86 20 137/70 (92) 100 03/26/18 00:00 25 03/26/18 00:00 82 03/26/18 00:00 Bi-pap Bi-pap 03/25/18 23:23 89 16 100 Bi-pap 25 03/25/18 23:10 80 19 100 Facial 25 03/25/18 23:10 83 19 100 Bi-pap 25 03/25/18 21:30 98 23 98 Facial 25 03/25/18 20:00 92 03/25/18 20:00 97.7 89 18 120/60 (80) 100 03/25/18 20:00 25 03/25/18 20:00 Bi-pap Bi-pap 03/25/18 19:58 99 20 100 Nasal Cannula 3.0 32 03/25/18 19:55 98 20 100 Nasal Cannula 3.0 32 03/25/18 19:54 98 20 100 03/25/18 19:53 Nasal Cannula 3.0 32 03/25/18 19:52 100 Nasal Cannula 3.0 32 03/25/18 16:33 94 17 97 Facial 25 03/25/18 16:00 Bi-pap Bi-pap 03/25/18 16:00 87 03/25/18 16:00 25 03/25/18 16:00 98.2 91 18 141/80 (100) 98 03/25/18 15:44 95 20 99 Bi-pap 25 03/25/18 15:36 92 22 97 Bi-pap 25 03/25/18 14:48 95 18 99 Facial 25 03/25/18 12:30 98 17 94 Facial 25 03/25/18 12:00 Bi-pap Bi-pap 03/25/18 12:00 94 03/25/18 12:00 98.2 94 20 128/69 (88) 90 03/25/18 12:00 25 03/25/18 10:57 89 18 100 Bi-pap 25 03/25/18 10:48 90 17 95 Bi-pap 25 03/25/18 10:47 90 16 95 Facial 25 03/25/18 09:46 93 133/70 03/25/18 09:24 93 20 96 Facial 25 03/25/18 08:00 95 03/25/18 08:00 Bi-pap Bi-pap 03/25/18 08:00 98.1 91 18 133/70 (91) 94 03/25/18 08:00 25 Intake and Output 03/25/18 03/26/18 18:59 06:59 Intake Total 450 ml 540 ml Output Total 1300 ml Balance 450 ml -760 ml Intake Oral 450 ml 540 ml Output Urine Total 1300 ml # Voids 1 Microbiology Date/Time Source Procedure Growth Status 02/03/18 15:30 Blood Blood Culture - Final NO GROWTH AFTER 5 DAYS Complete 02/20/18 18:40 Stool Clostridium difficile Toxin Assay - Final Complete 02/20/18 12:50 Urine,Clean Catch Urine Culture - Final NO GROWTH AFTER 48 HOURS Complete 02/03/18 15:30 Rectal Mucosa - Final NO CARBAPENEM-RESISTANT ENTEROBACTERI... Complete Current Medications Medications (Trade) Dose Ordered Sig/Isabella Route PRN Reason Start Time Stop Time Status Last Admin Dose Admin Acetaminophen (Tylenol) 650 mg Q6H PRN ORAL Mild Pain/Temp > 100.5 03/15/18 11:18 04/05/18 11:17 03/22/18 20:53 Albuterol/ Ipratropium (Albuterol/ Ipratropium) 3 ml Q4HRT HHN 03/24/18 19:00 03/29/18 18:59 03/26/18 03:21 Bisacodyl (Dulcolax) 10 mg DAILYPRN PRN RECTAL Constipation 03/15/18 11:18 04/01/18 11:17 03/18/18 08:49 Diltiazem HCl (Cardizem CD) 240 mg DAILY ORAL 03/16/18 09:00 03/27/18 08:59 03/25/18 09:46 Diphenhydramine HCl (Benadryl) 25 mg Q6H PRN ORAL Itching 03/15/18 12:15 04/05/18 06:14 03/26/18 06:49 Ondansetron HCl (Zofran) 4 mg Q4H PRN IVP Nausea & Vomiting 03/16/18 09:00 04/15/18 08:59 03/16/18 08:59 Pantoprazole (Protonix) 40 mg DAILY ORAL 03/16/18 09:00 03/29/18 08:59 03/25/18 09:46 Prednisone (predniSONE) 30 mg DAILY ORAL 03/22/18 09:00 04/21/18 08:59 03/25/18 09:46 Height (Feet): 5 Height (Inches): 6.00 Weight (Pounds): 217 Objective exam stable renal u/s (02/19) noted last CXR noted Spenser Marc MD Mar 26, 2018 07:47
[2018-03-26 08:00] VITALS: BP 136/65
[2018-03-26] MEDS: dilTIAZem HCl CD 240mg cap ORAL SCH (08:19)
[2018-03-26 10:18] LABS: ALANINE AMINOTRANSFERASE 23 U/L (12-78); ALBUMIN 2.4 G/DL (3.4-5.0); ALBUMIN/GLOBULIN RATIO 0.6 (1.0-2.7); ALKALINE PHOSPHATASE 78 U/L (46-116); ANION GAP 7 mmol/L (5-15); ASPARTATE AMINO TRANSFERASE 17 U/L (15-37); BILIRUBIN,TOTAL 0.2 MG/DL (0.2-1.0); BLOOD UREA NITROGEN 14 mg/dL (7-18); CALCIUM 9.4 MG/DL (8.5-10.1); CARBON DIOXIDE 36 MMOL/L (21-32); CHLORIDE 98 MMOL/L (98-107); CREATININE 0.6 MG/DL (0.55-1.30); POTASSIUM 3.2 MMOL/L (3.5-5.1); SODIUM 140 MMOL/L (136-145)
[2018-03-26 12:00] VITALS: BP 142/84
[2018-03-26 16:00] VITALS: BP 158/73
--- NOTE | 2018-03-26 16:00 | Critical Care Progress Note ---
Assessment/Plan Assessment/Plan IMPRESSION: Acute on chronic respiratory failure, COPD with acute exacerbation, chronic respiratory acidosis and associated hypoxemia, cardiomegaly, pleural effusion and pulmonary edema, protein-calorie malnutrition. loculated pleural effusion likely PLAN exam reviewed and same still with CO2 retention but slightly improved respiratory care - optimized but not improving BIPAP as is keep in RAMSES guarded nutrition DVT prophylaxis monitor acid base closely ABG noted and somewhat improved trilogy on discharge awaiting LTAC medications/laboratory data/nursing notes reviewed in detail note reviewed and edited care discussed with RN and RT Critical Care - Subjective ROS Limited/Unobtainable: Yes Condition: critical, stable EKG Rhythm: Sinus Rhythm I&O: Intake and Output 03/25/18 03/26/18 19:00 07:00 Intake Total 450 ml 540 ml Output Total 1300 ml Balance 450 ml -760 ml Intake Oral 450 ml 540 ml Output Urine Total 1300 ml # Voids 1 Critical Care - Objective ET-Tube: 7.5 ET Position: 24 Last 24 Hour Vital Signs Date Time Temp Pulse Resp B/P (MAP) Pulse Ox O2 Delivery O2 Flow Rate FiO2 03/26/18 15:40 94 20 100 Nasal Cannula 2.0 28 03/26/18 15:32 84 20 100 03/26/18 15:32 84 18 99 Nasal Cannula 2.0 28 03/26/18 12:00 25 03/26/18 12:00 98.2 95 18 142/84 (103) 99 03/26/18 12:00 Bi-pap Bi-pap 03/26/18 11:52 91 20 99 Nasal Cannula 2.0 28 03/26/18 11:48 92 18 99 Nasal Cannula 2.0 28 03/26/18 08:19 99 136/65 03/26/18 08:00 96 03/26/18 08:00 Bi-pap Bi-pap 03/26/18 08:00 97.9 99 20 136/65 (88) 99 03/26/18 08:00 25 03/26/18 07:50 89 20 100 Nasal Cannula 2.0 28 03/26/18 07:45 Nasal Cannula 3.0 32 03/26/18 07:45 100 Nasal Cannula 3.0 32 03/26/18 07:44 85 18 100 Nasal Cannula 3.0 32 03/26/18 05:02 82 19 99 Facial 25 03/26/18 04:00 98.2 82 20 135/65 (88) 100 03/26/18 04:00 88 03/26/18 04:00 25 03/26/18 04:00 Bi-pap Bi-pap 03/26/18 03:30 86 23 100 Bi-pap 25 03/26/18 03:22 77 19 100 Bi-pap 25 03/26/18 03:21 77 18 100 Facial 25 03/26/18 01:51 78 19 99 Facial 25 03/26/18 00:00 97.0 86 20 137/70 (92) 100 03/26/18 00:00 25 03/26/18 00:00 82 03/26/18 00:00 Bi-pap Bi-pap 03/25/18 23:23 89 16 100 Bi-pap 25 03/25/18 23:10 80 19 100 Facial 25 03/25/18 23:10 83 19 100 Bi-pap 25 03/25/18 21:30 98 23 98 Facial 25 03/25/18 20:00 92 03/25/18 20:00 97.7 89 18 120/60 (80) 100 03/25/18 20:00 25 03/25/18 20:00 Bi-pap Bi-pap 03/25/18 19:58 99 20 100 Nasal Cannula 3.0 32 03/25/18 19:55 98 20 100 Nasal Cannula 3.0 32 03/25/18 19:54 98 20 100 03/25/18 19:53 Nasal Cannula 3.0 32 03/25/18 19:52 100 Nasal Cannula 3.0 32 03/25/18 16:33 94 17 97 Facial 25 03/25/18 16:00 Bi-pap Bi-pap 03/25/18 16:00 87 03/25/18 16:00 25 03/25/18 16:00 98.2 91 18 141/80 (100) 98 Labs: Labs Test 03/24/18 09:45 03/26/18 09:25 03/26/18 09:32 Arterial Blood pH 7.394 (7.350-7.450) 7.518 (7.350-7.450) Arterial Blood Partial Pressure CO2 71.4 mmHg (35.0-45.0) 43.2 mmHg (35.0-45.0) Arterial Blood Partial Pressure O2 70.5 mmHg (75.0-100.0) 94.6 mmHg (75.0-100.0) Arterial Blood HCO3 42.6 mmol/L (22.0-26.0) 34.3 mmol/L (22.0-26.0) Arterial Blood Oxygen Saturation 94.4 % (95-100) 97.4 % (95-100) Arterial Blood Base Excess 14.2 (-2-2) 10.3 (-2-2) Tarun Test Positive Positive Sodium Level 140 MMOL/L (136-145) Potassium Level 3.2 MMOL/L (3.5-5.1) Chloride Level 98 MMOL/L (98-107) Carbon Dioxide Level 36 MMOL/L (21-32) Anion Gap 7 mmol/L (5-15) Blood Urea Nitrogen 14 mg/dL (7-18) Creatinine 0.6 MG/DL (0.55-1.30) Estimat Glomerular Filtration Rate mL/min (>60) Glucose Level 126 MG/DL (74-106) Calcium Level 9.4 MG/DL (8.5-10.1) Total Bilirubin 0.2 MG/DL (0.2-1.0) Aspartate Amino Transf (AST/SGOT) 17 U/L (15-37) Alanine Aminotransferase (ALT/SGPT) 23 U/L (12-78) Alkaline Phosphatase 78 U/L (46-116) Total Protein 6.6 G/DL (6.4-8.2) Albumin 2.4 G/DL (3.4-5.0) Globulin 4.2 g/dL Albumin/Globulin Ratio 0.6 (1.0-2.7) Objective: GENERAL: no distress; on oxygen no distress; appears comfortable and awake NECK: Supple. No adenopathy. No jugular venous distention. LUNGS: Moderate breath sounds. no rhonchi. No wheezes. stable and same CARDIAC: S1 and S2. Regular rhythm without murmurs, rubs, or gallops. ABDOMEN: Soft, nontender, nondistended. no HSM; EXTREMITIES: No cyanosis, clubbing; trace edema. NEUROLOGIC: Grossly nonfocal, awake alert reviewed and examined Accucheck: 140 Mk Billings MD Mar 26, 2018 16:00
[2018-03-26 20:00] VITALS: BP 143/78
[2018-03-27] VITALS: BP 147/78
[2018-03-27] MEDS: Albuterol/Ipratropium 3ml neb HHN SCH ×7 (01:18→23:17)
[2018-03-27 04:00] VITALS: BP 155/74
[2018-03-27 08:00] VITALS: BP 141/80
--- NOTE | 2018-03-27 09:43 | Urology Progress Note ---
Assessment/Plan Assessment/Plan 1. Gross hematuria, improved. 2. Urinary retention hx. 3. Probable neurogenic bladder. 4. Pyuria. 5. Proteinuria. 6. Possible hemorrhagic cystitis. monitor clinically no active bleeding s/p abx off anticoagulation, ok to resume if needed monitor h/h cysto later consider CT check urine cx PRN check PVR PRN d/w Dr. Serrano Subjective Allergies: Coded Allergies: No Known Allergies (Unverified , 12/10/15) Subjective all noted, feels fair, urine reported grossly clear Objective Last 24 Hour Vital Signs Date Time Temp Pulse Resp B/P (MAP) Pulse Ox O2 Delivery O2 Flow Rate FiO2 03/27/18 08:21 88 16 99 Nasal Cannula 2.0 28 03/27/18 08:00 98.9 91 20 141/80 (100) 97 03/27/18 07:15 81 98 2.0 28 03/27/18 07:15 99 Nasal Cannula 2.0 28 03/27/18 07:15 Nasal Cannula 2.0 03/27/18 05:30 81 98 2.0 28 03/27/18 04:00 25 03/27/18 04:00 97.0 84 18 155/74 (101) 95 03/27/18 04:00 Bi-pap Bi-pap 03/27/18 04:00 81 03/27/18 03:40 80 16 99 Bi-pap 03/27/18 03:30 74 16 98 Facial 25 03/27/18 03:30 74 16 98 Bi-pap 03/27/18 01:24 89 27 100 Facial 25 03/27/18 00:10 99 20 100 Nasal Cannula 2.0 03/27/18 00:00 94 18 97 Nasal Cannula 2.0 03/27/18 00:00 98.1 89 20 147/78 (101) 100 03/27/18 00:00 Bi-pap Bi-pap 03/27/18 00:00 100 03/26/18 21:30 90 98 2.0 28 03/26/18 20:00 25 03/26/18 20:00 101 20 100 Nasal Cannula 2.0 28 03/26/18 20:00 Bi-pap Bi-pap 03/26/18 20:00 Nasal Cannula 2.0 28 03/26/18 20:00 97 03/26/18 20:00 100 Nasal Cannula 2.0 28 03/26/18 20:00 97.5 97 20 143/78 (99) 100 03/26/18 19:50 99 18 98 Nasal Cannula 2.0 28 03/26/18 19:30 99 18 100 03/26/18 16:00 98.2 75 20 158/73 (101) 93 03/26/18 16:00 100 03/26/18 16:00 25 03/26/18 16:00 Bi-pap Bi-pap 03/26/18 15:40 94 20 100 Nasal Cannula 2.0 28 03/26/18 15:32 84 20 100 03/26/18 15:32 84 18 99 Nasal Cannula 2.0 28 03/26/18 15:30 97 03/26/18 12:00 25 03/26/18 12:00 98.2 95 18 142/84 (103) 99 03/26/18 12:00 Bi-pap Bi-pap 03/26/18 11:52 91 20 99 Nasal Cannula 2.0 28 03/26/18 11:48 92 18 99 Nasal Cannula 2.0 28 Intake and Output 03/26/18 03/27/18 18:59 06:59 Intake Total 500 ml 540 ml Balance 500 ml 540 ml Intake Oral 500 ml 540 ml # Voids 3 3 # Bowel Movements 2 Microbiology Date/Time Source Procedure Growth Status 02/03/18 15:30 Blood Blood Culture - Final NO GROWTH AFTER 5 DAYS Complete 02/20/18 18:40 Stool Clostridium difficile Toxin Assay - Final Complete 02/20/18 12:50 Urine,Clean Catch Urine Culture - Final NO GROWTH AFTER 48 HOURS Complete 02/03/18 15:30 Rectal Mucosa - Final NO CARBAPENEM-RESISTANT ENTEROBACTERI... Complete Current Medications Medications (Trade) Dose Ordered Sig/Isabella Route PRN Reason Start Time Stop Time Status Last Admin Dose Admin Acetaminophen (Tylenol) 650 mg Q6H PRN ORAL Mild Pain/Temp > 100.5 03/15/18 11:18 04/05/18 11:17 03/22/18 20:53 Albuterol/ Ipratropium (Albuterol/ Ipratropium) 3 ml Q4HRT HHN 03/24/18 19:00 03/29/18 18:59 03/27/18 08:23 Bisacodyl (Dulcolax) 10 mg DAILYPRN PRN RECTAL Constipation 03/15/18 11:18 04/01/18 11:17 03/18/18 08:49 Diphenhydramine HCl (Benadryl) 25 mg Q6H PRN ORAL Itching 03/15/18 12:15 04/05/18 06:14 03/27/18 03:48 Ondansetron HCl (Zofran) 4 mg Q4H PRN IVP Nausea & Vomiting 03/16/18 09:00 04/15/18 08:59 03/16/18 08:59 Pantoprazole (Protonix) 40 mg DAILY ORAL 03/16/18 09:00 03/29/18 08:59 03/27/18 09:16 Prednisone (predniSONE) 30 mg DAILY ORAL 03/22/18 09:00 04/21/18 08:59 03/27/18 09:17 Height (Feet): 5 Height (Inches): 6.00 Weight (Pounds): 220 Objective exam stable renal u/s (02/19) noted last CXR noted Spenser Marc MD Mar 27, 2018 09:43
[2018-03-27 12:00] VITALS: BP 146/81
--- NOTE | 2018-03-27 14:46 | Pulmonology Progress Note ---
Assessment/Plan Assessment/Plan PULMONARY PROGRESS NOTE Assessment/Plan IMPRESSION: Acute on chronic respiratory failure, COPD with acute exacerbation, chronic respiratory acidosis and associated hypoxemia, cardiomegaly, pleural effusion and pulmonary edema, protein-calorie malnutrition. loculated pleural effusion likely PLAN exam reviewed and same still with CO2 retention but slightly improved respiratory care - optimized but not improving BIPAP as is keep in RAMSES guarded nutrition DVT prophylaxis monitor acid base closely ABG noted and somewhat improved trilogy on discharge awaiting LTAC medications/laboratory data/nursing notes reviewed in detail note reviewed and edited care discussed with RN and RT Critical Care - Subjective ROS Limited/Unobtainable: Yes Condition: critical, stable EKG Rhythm: Sinus Rhythm Vital Signs Noted Objective: GENERAL: no distress; on oxygen no distress; appears comfortable and awake NECK: Supple. No adenopathy. No jugular venous distention. LUNGS: Moderate breath sounds. no rhonchi. No wheezes. stable and same CARDIAC: S1 and S2. Regular rhythm without murmurs, rubs, or gallops. ABDOMEN: Soft, nontender, nondistended. no HSM; EXTREMITIES: No cyanosis, clubbing; trace edema. NEUROLOGIC: Grossly nonfocal, awake alert reviewed and examined Labs Test 03/24/18 09:45 03/26/18 09:25 03/26/18 09:32 Arterial Blood pH 7.394 (7.350-7.450) 7.518 (7.350-7.450) Arterial Blood Partial Pressure CO2 71.4 mmHg (35.0-45.0) 43.2 mmHg (35.0-45.0) Arterial Blood Partial Pressure O2 70.5 mmHg (75.0-100.0) 94.6 mmHg (75.0-100.0) Arterial Blood HCO3 42.6 mmol/L (22.0-26.0) 34.3 mmol/L (22.0-26.0) Arterial Blood Oxygen Saturation 94.4 % (95-100) 97.4 % (95-100) Arterial Blood Base Excess 14.2 (-2-2) 10.3 (-2-2) Tarun Test Positive Positive Sodium Level 140 MMOL/L (136-145) Potassium Level 3.2 MMOL/L (3.5-5.1) Chloride Level 98 MMOL/L (98-107) Carbon Dioxide Level 36 MMOL/L (21-32) Anion Gap 7 mmol/L (5-15) Blood Urea Nitrogen 14 mg/dL (7-18) Creatinine 0.6 MG/DL (0.55-1.30) Estimat Glomerular Filtration Rate mL/min (>60) Glucose Level 126 MG/DL (74-106) Calcium Level 9.4 MG/DL (8.5-10.1) Total Bilirubin 0.2 MG/DL (0.2-1.0) Aspartate Amino Transf (AST/SGOT) 17 U/L (15-37) Alanine Aminotransferase (ALT/SGPT) 23 U/L (12-78) Alkaline Phosphatase 78 U/L (46-116) Total Protein 6.6 G/DL (6.4-8.2) Albumin 2.4 G/DL (3.4-5.0) Globulin 4.2 g/dL Albumin/Globulin Ratio 0.6 (1.0-2.7) Subjective ROS Limited/Unobtainable: No Allergies: Coded Allergies: No Known Allergies (Unverified , 12/10/15) Objective Last 24 Hour Vital Signs Date Time Temp Pulse Resp B/P (MAP) Pulse Ox O2 Delivery O2 Flow Rate FiO2 03/27/18 12:43 77 18 99 Nasal Cannula 2.0 28 03/27/18 12:43 70 97 2.0 28 03/27/18 12:00 89 03/27/18 12:00 2.0 03/27/18 12:00 97.8 91 19 146/81 (102) 96 03/27/18 12:00 Nasal Cannula 2.0 Nasal Cannula 2.0 03/27/18 11:41 70 97 2.0 28 03/27/18 11:39 70 16 97 Nasal Cannula 2.0 28 03/27/18 08:30 90 18 99 Nasal Cannula 2.0 28 03/27/18 08:21 88 16 99 Nasal Cannula 2.0 28 03/27/18 08:00 2.0 03/27/18 08:00 98.9 91 20 141/80 (100) 97 03/27/18 08:00 98 03/27/18 08:00 Nasal Cannula 2.0 Nasal Cannula 2.0 03/27/18 07:15 81 98 2.0 28 03/27/18 07:15 99 Nasal Cannula 2.0 28 03/27/18 07:15 Nasal Cannula 2.0 28 03/27/18 05:30 81 98 2.0 28 03/27/18 04:00 25 03/27/18 04:00 97.0 84 18 155/74 (101) 95 03/27/18 04:00 Bi-pap Bi-pap 03/27/18 04:00 81 03/27/18 03:40 80 16 99 Bi-pap 25 03/27/18 03:30 74 16 98 Facial 25 03/27/18 03:30 74 16 98 Bi-pap 25 03/27/18 01:24 89 27 100 Facial 25 03/27/18 00:10 99 20 100 Nasal Cannula 2.0 28 03/27/18 00:00 94 18 97 Nasal Cannula 2.0 28 03/27/18 00:00 98.1 89 20 147/78 (101) 100 03/27/18 00:00 Bi-pap Bi-pap 03/27/18 00:00 100 03/26/18 21:30 90 98 2.0 28 03/26/18 20:00 25 03/26/18 20:00 101 20 100 Nasal Cannula 2.0 28 03/26/18 20:00 Bi-pap Bi-pap 03/26/18 20:00 Nasal Cannula 2.0 28 03/26/18 20:00 97 03/26/18 20:00 100 Nasal Cannula 2.0 28 03/26/18 20:00 97.5 97 20 143/78 (99) 100 03/26/18 19:50 99 18 98 Nasal Cannula 2.0 28 03/26/18 19:30 99 18 100 03/26/18 16:00 98.2 75 20 158/73 (101) 93 03/26/18 16:00 100 03/26/18 16:00 25 03/26/18 16:00 Bi-pap Bi-pap 03/26/18 15:40 94 20 100 Nasal Cannula 2.0 28 03/26/18 15:32 84 20 100 03/26/18 15:32 84 18 99 Nasal Cannula 2.0 28 03/26/18 15:30 97 Intake and Output 03/26/18 03/27/18 19:00 07:00 Intake Total 500 ml 540 ml Balance 500 ml 540 ml Intake Oral 500 ml 540 ml # Voids 3 3 # Bowel Movements 2 Current Medications Medications (Trade) Dose Ordered Sig/Isabella Route PRN Reason Start Time Stop Time Status Last Admin Dose Admin Acetaminophen (Tylenol) 650 mg Q6H PRN ORAL Mild Pain/Temp > 100.5 03/15/18 11:18 04/05/18 11:17 03/22/18 20:53 Albuterol/ Ipratropium (Albuterol/ Ipratropium) 3 ml Q4HRT HHN 03/24/18 19:00 03/29/18 18:59 03/27/18 11:39 Bisacodyl (Dulcolax) 10 mg DAILYPRN PRN RECTAL Constipation 03/15/18 11:18 04/01/18 11:17 03/18/18 08:49 Diphenhydramine HCl (Benadryl) 25 mg Q6H PRN ORAL Itching 03/15/18 12:15 04/05/18 06:14 03/27/18 03:48 Ondansetron HCl (Zofran) 4 mg Q4H PRN IVP Nausea & Vomiting 03/16/18 09:00 04/15/18 08:59 03/16/18 08:59 Pantoprazole (Protonix) 40 mg DAILY ORAL 03/16/18 09:00 03/29/18 08:59 03/27/18 09:16 Prednisone (predniSONE) 30 mg DAILY ORAL 03/22/18 09:00 04/21/18 08:59 03/27/18 09:17 Ashvin Serrano MD Mar 27, 2018 14:46
[2018-03-27 16:00] VITALS: BP 151/74
--- NOTE | 2018-03-27 16:33 | General Progress Note ---
Assessment/Plan Problem List: (1) COPD exacerbation ICD Codes: J44.1 - Chronic obstructive pulmonary disease with (acute) exacerbation SNOMED: 170579659 (2) HTN (hypertension) ICD Codes: I10 - Essential (primary) hypertension SNOMED: 71314710 (3) Hypoxia ICD Codes: R09.02 - Hypoxemia SNOMED: 379000635 (4) Elevated troponin ICD Codes: R74.8 - Abnormal levels of other serum enzymes SNOMED: 906013354, 073732786, 180309626 (5) Renal insufficiency ICD Codes: N28.9 - Disorder of kidney and ureter, unspecified SNOMED: 003968901, 422568298 (6) Respiratory failure ICD Codes: J96.90 - Respiratory failure, unspecified, unspecified whether with hypoxia or hypercapnia SNOMED: 284356201 Qualifiers: Qualified Codes: J96.02 - Acute respiratory failure with hypercapnia (7) Right lower lobe pneumonia ICD Codes: J18.1 - Lobar pneumonia, unspecified organism SNOMED: 903538332 Qualifiers: Qualified Codes: J18.1 - Lobar pneumonia, unspecified organism Status: stable, progressing Assessment/Plan resp rx o2 bipap per pulm- continuous po steroids keep dry monitor cxr no ready for dc to snf but can go to ltac Subjective ROS Limited/Unobtainable: No Constitutional: Reports: malaise, weakness HEENT: Reports: no symptoms Cardiovascular: Reports: no symptoms Respiratory: Reports: no symptoms Gastrointestinal/Abdominal: Reports: no symptoms Genitourinary: Reports: no symptoms Neurologic/Psychiatric: Reports: anxiety Endocrine: Reports: no symptoms Hematologic/Lymphatic: Reports: no symptoms Allergies: Coded Allergies: No Known Allergies (Unverified , 12/10/15) All Systems: reviewed and negative except above Subjective no new complaints. less sob.. no fevers or chills. no chest pain. currently off bipap eating breakfast. remains on continuous atc bipap . Objective Last 24 Hour Vital Signs Date Time Temp Pulse Resp B/P (MAP) Pulse Ox O2 Delivery O2 Flow Rate FiO2 03/27/18 16:19 70 97 2.0 03/27/18 16:03 85 18 99 Nasal Cannula 2.0 03/27/18 15:53 99 18 95 Nasal Cannula 2.0 03/27/18 12:43 77 18 99 Nasal Cannula 2.0 03/27/18 12:43 70 97 2.0 28 03/27/18 12:00 89 03/27/18 12:00 2.0 03/27/18 12:00 97.8 91 19 146/81 (102) 96 03/27/18 12:00 Nasal Cannula 2.0 Nasal Cannula 2.0 03/27/18 11:41 70 97 2.0 28 03/27/18 11:39 70 16 97 Nasal Cannula 2.0 28 03/27/18 08:30 90 18 99 Nasal Cannula 2.0 28 03/27/18 08:21 88 16 99 Nasal Cannula 2.0 28 03/27/18 08:00 2.0 03/27/18 08:00 98.9 91 20 141/80 (100) 97 03/27/18 08:00 98 03/27/18 08:00 Nasal Cannula 2.0 Nasal Cannula 2.0 03/27/18 07:15 81 98 2.0 28 03/27/18 07:15 99 Nasal Cannula 2.0 28 03/27/18 07:15 Nasal Cannula 2.0 28 03/27/18 05:30 81 98 2.0 28 03/27/18 04:00 25 03/27/18 04:00 97.0 84 18 155/74 (101) 95 03/27/18 04:00 Bi-pap Bi-pap 03/27/18 04:00 81 03/27/18 03:40 80 16 99 Bi-pap 25 03/27/18 03:30 74 16 98 Facial 25 03/27/18 03:30 74 16 98 Bi-pap 25 03/27/18 01:24 89 27 100 Facial 25 03/27/18 00:10 99 20 100 Nasal Cannula 2.0 28 03/27/18 00:00 94 18 97 Nasal Cannula 2.0 28 03/27/18 00:00 98.1 89 20 147/78 (101) 100 03/27/18 00:00 Bi-pap Bi-pap 03/27/18 00:00 100 03/26/18 21:30 90 98 2.0 28 03/26/18 20:00 25 03/26/18 20:00 101 20 100 Nasal Cannula 2.0 28 03/26/18 20:00 Bi-pap Bi-pap 03/26/18 20:00 Nasal Cannula 2.0 28 03/26/18 20:00 97 03/26/18 20:00 100 Nasal Cannula 2.0 28 03/26/18 20:00 97.5 97 20 143/78 (99) 100 03/26/18 19:50 99 18 98 Nasal Cannula 2.0 28 03/26/18 19:30 99 18 100 Intake and Output 03/26/18 03/27/18 19:00 07:00 Intake Total 500 ml 540 ml Balance 500 ml 540 ml Intake Oral 500 ml 540 ml # Voids 3 3 # Bowel Movements 2 Height (Feet): 5 Height (Inches): 6.00 Weight (Pounds): 220 Objective General Appearance: WD/WN, resting. on bipap, opens eyes. alert. follows commands Neck: supple Cardiovascular: regular rhythm Respiratory/Chest: lungs mostly clear, few rhonchi Abdomen: normal bowel sounds, non tender, soft, no organomegaly Edema: no edema noted Arm (L), no edema noted Arm (R), no edema noted Leg (L), no edema noted Leg (R), no edema noted Pedal (L), no edema noted Pedal (R), no edema noted Generalized Manan Byrd MD Mar 27, 2018 16:33
[2018-03-27 20:00] VITALS: BP 142/73
[2018-03-28] VITALS: BP 159/98
[2018-03-28] MEDS: Albuterol/Ipratropium 3ml neb HHN SCH ×6 (03:00→23:00)
[2018-03-28 04:00] VITALS: BP 155/86
[2018-03-28 04:54] LABS: HEMATOCRIT 38.3 % (37.0-47.0); MEAN CORPUSCULAR VOLUME 89 FL (80-99); PLATELET COUNT 264 K/UL (150-450); RED BLOOD COUNT 4.31 M/UL (4.20-5.40); RED CELL DISTRIBUTION WIDTH 14.8 % (11.6-14.8); WHITE BLOOD COUNT 19.1 K/UL (4.8-10.8)
[2018-03-28 05:30] LABS: ALANINE AMINOTRANSFERASE 23 U/L (12-78); ALBUMIN 2.6 G/DL (3.4-5.0); ALBUMIN/GLOBULIN RATIO 0.6 (1.0-2.7); ALKALINE PHOSPHATASE 83 U/L (46-116); ANION GAP 5 mmol/L (5-15); ASPARTATE AMINO TRANSFERASE 15 U/L (15-37); BILIRUBIN,TOTAL 0.2 MG/DL (0.2-1.0); BLOOD UREA NITROGEN 16 mg/dL (7-18); CALCIUM 9.4 MG/DL (8.5-10.1); CARBON DIOXIDE 33 MMOL/L (21-32); CHLORIDE 101 MMOL/L (98-107); CREATININE 0.5 MG/DL (0.55-1.30); POTASSIUM 4.2 MMOL/L (3.5-5.1); SODIUM 139 MMOL/L (136-145)
[2018-03-28 08:00] VITALS: BP 150/75
--- NOTE | 2018-03-28 09:19 | Critical Care Progress Note ---
Assessment/Plan Assessment/Plan IMPRESSION: Acute on chronic respiratory failure, COPD with acute exacerbation, chronic respiratory acidosis and associated hypoxemia, cardiomegaly, pleural effusion and pulmonary edema, protein-calorie malnutrition. loculated pleural effusion likely PLAN exam reviewed and same still with CO2 retention but slightly improved respiratory care - optimized but not improving BIPAP as is keep in RAMSES guarded nutrition DVT prophylaxis monitor acid base closely ABG noted and somewhat improved trilogy on discharge awaiting LTAC medications/laboratory data/nursing notes reviewed in detail note reviewed and edited care discussed with RN and RT Critical Care - Subjective Interval Events: care noted no distress events reviewed ROS Limited/Unobtainable: Yes EKG Rhythm: Sinus Rhythm I&O: Intake and Output 03/27/18 03/28/18 18:59 06:59 Intake Total 350 ml 350 ml Output Total 400 ml Balance 350 ml -50 ml Intake Oral 350 ml 350 ml Output Urine Total 400 ml # Voids 2 # Bowel Movements 2 2 Critical Care - Objective ET-Tube: 7.5 ET Position: 24 Last 24 Hour Vital Signs Date Time Temp Pulse Resp B/P (MAP) Pulse Ox O2 Delivery O2 Flow Rate FiO2 03/28/18 08:00 98.2 101 22 150/75 (100) 98 03/28/18 07:45 91 18 99 Nasal Cannula 2.0 28 03/28/18 07:38 Nasal Cannula 2.0 28 03/28/18 07:38 91 18 98 Nasal Cannula 2.0 28 03/28/18 07:38 97 Nasal Cannula 2.0 28 03/28/18 04:00 Nasal Cannula 2.0 Nasal Cannula 2.0 03/28/18 04:00 97.9 100 16 155/86 (109) 99 03/28/18 04:00 122 03/28/18 04:00 2.0 03/28/18 03:11 93 18 99 Nasal Cannula 2.0 28 03/28/18 03:00 94 18 98 Nasal Cannula 2.0 28 03/28/18 00:00 2.0 03/28/18 00:00 108 03/28/18 00:00 97.9 124 16 159/98 (118) 97 03/28/18 00:00 Nasal Cannula 2.0 Nasal Cannula 2.0 03/27/18 23:27 103 18 99 Nasal Cannula 2.0 03/27/18 23:17 104 18 98 Nasal Cannula 2.0 28 03/27/18 20:00 98 03/27/18 20:00 2.0 03/27/18 20:00 Nasal Cannula 2.0 Nasal Cannula 2.0 03/27/18 20:00 97.7 106 18 142/73 (96) 97 03/27/18 19:52 98 18 99 Nasal Cannula 2.0 28 03/27/18 19:42 106 18 97 Nasal Cannula 2.0 28 03/27/18 19:42 97 Nasal Cannula 2.0 28 03/27/18 19:42 Nasal Cannula 2.0 28 03/27/18 16:19 70 97 2.0 28 03/27/18 16:03 85 18 99 Nasal Cannula 2.0 28 03/27/18 16:00 Nasal Cannula 2.0 Nasal Cannula 2.0 03/27/18 16:00 115 03/27/18 16:00 98.7 105 20 151/74 (99) 95 03/27/18 16:00 2.0 03/27/18 15:53 99 18 95 Nasal Cannula 2.0 03/27/18 12:43 77 18 99 Nasal Cannula 2.0 28 03/27/18 12:43 70 97 2.0 28 03/27/18 12:00 89 03/27/18 12:00 2.0 03/27/18 12:00 97.8 91 19 146/81 (102) 96 03/27/18 12:00 Nasal Cannula 2.0 Nasal Cannula 2.0 03/27/18 11:41 70 97 2.0 28 03/27/18 11:39 70 16 97 Nasal Cannula 2.0 28 Labs: Labs Test 03/26/18 09:25 03/26/18 09:32 03/28/18 03:20 Sodium Level 140 MMOL/L (136-145) 139 MMOL/L (136-145) Potassium Level 3.2 MMOL/L (3.5-5.1) 4.2 MMOL/L (3.5-5.1) Chloride Level 98 MMOL/L (98-107) 101 MMOL/L (98-107) Carbon Dioxide Level 36 MMOL/L (21-32) 33 MMOL/L (21-32) Anion Gap 7 mmol/L (5-15) 5 mmol/L (5-15) Blood Urea Nitrogen 14 mg/dL (7-18) 16 mg/dL (7-18) Creatinine 0.6 MG/DL (0.55-1.30) 0.5 MG/DL (0.55-1.30) Estimat Glomerular Filtration Rate mL/min (>60) mL/min (>60) Glucose Level 126 MG/DL (74-106) 113 MG/DL (74-106) Calcium Level 9.4 MG/DL (8.5-10.1) 9.4 MG/DL (8.5-10.1) Total Bilirubin 0.2 MG/DL (0.2-1.0) 0.2 MG/DL (0.2-1.0) Aspartate Amino Transf (AST/SGOT) 17 U/L (15-37) 15 U/L (15-37) Alanine Aminotransferase (ALT/SGPT) 23 U/L (12-78) 23 U/L (12-78) Alkaline Phosphatase 78 U/L (46-116) 83 U/L (46-116) Total Protein 6.6 G/DL (6.4-8.2) 6.9 G/DL (6.4-8.2) Albumin 2.4 G/DL (3.4-5.0) 2.6 G/DL (3.4-5.0) Globulin 4.2 g/dL 4.3 g/dL Albumin/Globulin Ratio 0.6 (1.0-2.7) 0.6 (1.0-2.7) Arterial Blood pH 7.518 (7.350-7.450) Arterial Blood Partial Pressure CO2 43.2 mmHg (35.0-45.0) Arterial Blood Partial Pressure O2 94.6 mmHg (75.0-100.0) Arterial Blood HCO3 34.3 mmol/L (22.0-26.0) Arterial Blood Oxygen Saturation 97.4 % (95-100) Arterial Blood Base Excess 10.3 (-2-2) Tarun Test Positive White Blood Count 19.1 K/UL (4.8-10.8) Red Blood Count 4.31 M/UL (4.20-5.40) Hemoglobin 12.0 G/DL (12.0-16.0) Hematocrit 38.3 % (37.0-47.0) Mean Corpuscular Volume 89 FL (80-99) Mean Corpuscular Hemoglobin 27.9 PG (27.0-31.0) Mean Corpuscular Hemoglobin Concent 31.4 G/DL (32.0-36.0) Red Cell Distribution Width 14.8 % (11.6-14.8) Platelet Count 264 K/UL (150-450) Mean Platelet Volume 6.8 FL (6.5-10.1) Neutrophils (%) (Auto) % (45.0-75.0) Lymphocytes (%) (Auto) % (20.0-45.0) Monocytes (%) (Auto) % (1.0-10.0) Eosinophils (%) (Auto) % (0.0-3.0) Basophils (%) (Auto) % (0.0-2.0) Objective: GENERAL: no distress; on oxygen no distress; appears comfortable and awake NECK: Supple. No adenopathy. No jugular venous distention. LUNGS: Moderate breath sounds. no rhonchi. No wheezes. stable and same CARDIAC: S1 and S2. Regular rhythm without murmurs, rubs, or gallops. ABDOMEN: Soft, nontender, nondistended. no HSM; EXTREMITIES: No cyanosis, clubbing; trace edema. NEUROLOGIC: Grossly nonfocal, awake alert reviewed and examined Accucheck: 140 Mk Billings MD Mar 28, 2018 09:19
--- NOTE | 2018-03-28 10:02 | Urology Progress Note ---
Assessment/Plan Assessment/Plan 1. Gross hematuria, improved. 2. Urinary retention hx. 3. Probable neurogenic bladder. 4. Pyuria. 5. Proteinuria. 6. Possible hemorrhagic cystitis. monitor clinically no active bleeding s/p abx off anticoagulation, ok to resume if needed monitor h/h cysto later consider CT check urine cx PRN check PVR PRN Subjective Allergies: Coded Allergies: No Known Allergies (Unverified , 12/10/15) Subjective all noted, feels fair, urine reported grossly clear Objective Last 24 Hour Vital Signs Date Time Temp Pulse Resp B/P (MAP) Pulse Ox O2 Delivery O2 Flow Rate FiO2 03/28/18 08:00 2.0 03/28/18 08:00 Nasal Cannula 2.0 Nasal Cannula 2.0 03/28/18 08:00 98.2 101 22 150/75 (100) 98 03/28/18 08:00 99 03/28/18 07:45 91 18 99 Nasal Cannula 2.0 28 03/28/18 07:38 Nasal Cannula 2.0 28 03/28/18 07:38 91 18 98 Nasal Cannula 2.0 28 03/28/18 07:38 97 Nasal Cannula 2.0 28 03/28/18 04:00 Nasal Cannula 2.0 Nasal Cannula 2.0 03/28/18 04:00 97.9 100 16 155/86 (109) 99 03/28/18 04:00 122 03/28/18 04:00 2.0 03/28/18 03:11 93 18 99 Nasal Cannula 2.0 28 03/28/18 03:00 94 18 98 Nasal Cannula 2.0 28 03/28/18 00:00 2.0 03/28/18 00:00 108 03/28/18 00:00 97.9 124 16 159/98 (118) 97 03/28/18 00:00 Nasal Cannula 2.0 Nasal Cannula 2.0 03/27/18 23:27 103 18 99 Nasal Cannula 2.0 28 03/27/18 23:17 104 18 98 Nasal Cannula 2.0 28 03/27/18 20:00 98 03/27/18 20:00 2.0 03/27/18 20:00 Nasal Cannula 2.0 Nasal Cannula 2.0 03/27/18 20:00 97.7 106 18 142/73 (96) 97 03/27/18 19:52 98 18 99 Nasal Cannula 2.0 28 03/27/18 19:42 106 18 97 Nasal Cannula 2.0 28 03/27/18 19:42 97 Nasal Cannula 2.0 28 03/27/18 19:42 Nasal Cannula 2.0 28 03/27/18 16:19 70 97 2.0 28 03/27/18 16:03 85 18 99 Nasal Cannula 2.0 28 03/27/18 16:00 Nasal Cannula 2.0 Nasal Cannula 2.0 03/27/18 16:00 115 03/27/18 16:00 98.7 105 20 151/74 (99) 95 03/27/18 16:00 2.0 03/27/18 15:53 99 18 95 Nasal Cannula 2.0 03/27/18 12:43 77 18 99 Nasal Cannula 2.0 03/27/18 12:43 70 97 2.0 28 03/27/18 12:00 89 03/27/18 12:00 2.0 03/27/18 12:00 97.8 91 19 146/81 (102) 96 03/27/18 12:00 Nasal Cannula 2.0 Nasal Cannula 2.0 03/27/18 11:41 70 97 2.0 28 03/27/18 11:39 70 16 97 Nasal Cannula 2.0 28 Intake and Output 03/27/18 03/28/18 19:00 07:00 Intake Total 350 ml 350 ml Output Total 400 ml Balance 350 ml -50 ml Intake Oral 350 ml 350 ml Output Urine Total 400 ml # Voids 2 # Bowel Movements 2 2 Microbiology Date/Time Source Procedure Growth Status 02/03/18 15:30 Blood Blood Culture - Final NO GROWTH AFTER 5 DAYS Complete 02/20/18 18:40 Stool Clostridium difficile Toxin Assay - Final Complete 02/20/18 12:50 Urine,Clean Catch Urine Culture - Final NO GROWTH AFTER 48 HOURS Complete 02/03/18 15:30 Rectal Mucosa - Final NO CARBAPENEM-RESISTANT ENTEROBACTERI... Complete Current Medications Medications (Trade) Dose Ordered Sig/Isabella Route PRN Reason Start Time Stop Time Status Last Admin Dose Admin Acetaminophen (Tylenol) 650 mg Q6H PRN ORAL Mild Pain/Temp > 100.5 03/15/18 11:18 04/05/18 11:17 03/22/18 20:53 Albuterol/ Ipratropium (Albuterol/ Ipratropium) 3 ml Q4HRT HHN 03/24/18 19:00 03/29/18 18:59 03/28/18 07:38 Bisacodyl (Dulcolax) 10 mg DAILYPRN PRN RECTAL Constipation 03/15/18 11:18 04/01/18 11:17 03/18/18 08:49 Diphenhydramine HCl (Benadryl) 25 mg Q6H PRN ORAL Itching 03/15/18 12:15 04/05/18 06:14 03/27/18 03:48 Ondansetron HCl (Zofran) 4 mg Q4H PRN IVP Nausea & Vomiting 03/16/18 09:00 04/15/18 08:59 03/16/18 08:59 Pantoprazole (Protonix) 40 mg DAILY ORAL 03/16/18 09:00 03/29/18 08:59 03/28/18 09:12 Prednisone (predniSONE) 20 mg DAILY ORAL 03/29/18 09:00 04/21/18 08:59 Laboratory Tests 03/28/18 03:20: White Blood Count 19.1H, Red Blood Count 4.31, Hemoglobin 12.0, Hematocrit 38.3 , Mean Corpuscular Volume 89, Mean Corpuscular Hemoglobin 27.9, Mean Corpuscular Hemoglobin Concent 31.4L, Red Cell Distribution Width 14.8, Platelet Count 264, Mean Platelet Volume 6.8, Neutrophils (%) (Auto) , Lymphocytes (%) (Auto) , Monocytes (%) (Auto) , Eosinophils (%) (Auto) , Basophils (%) (Auto) , Differential Total Cells Counted 100, Neutrophils % ( Manual) 82H, Lymphocytes % (Manual) 12L, Monocytes % (Manual) 6, Eosinophils % ( Manual) 0, Basophils % (Manual) 0, Band Neutrophils 0, Platelet Estimate Adequate, Platelet Morphology Normal, Hypochromasia 1+, Anisocytosis 1+, Sodium Level 139, Potassium Level 4.2, Chloride Level 101, Carbon Dioxide Level 33H, Anion Gap 5, Blood Urea Nitrogen 16, Creatinine 0.5L, Estimat Glomerular Filtration Rate , Glucose Level 113H, Calcium Level 9.4, Total Bilirubin 0.2, Aspartate Amino Transf (AST/SGOT) 15, Alanine Aminotransferase (ALT/SGPT) 23, Alkaline Phosphatase 83, Total Protein 6.9, Albumin 2.6L, Globulin 4.3, Albumin/ Globulin Ratio 0.6L Height (Feet): 5 Height (Inches): 6.00 Weight (Pounds): 215 Objective exam stable renal u/s (02/19) noted last CXR noted Spenser Marc MD Mar 28, 2018 10:02
[2018-03-28 12:00] VITALS: BP 152/79
[2018-03-28 16:00] VITALS: BP 148/76
--- NOTE | 2018-03-28 17:20 | General Progress Note ---
Assessment/Plan Problem List: (1) COPD exacerbation ICD Codes: J44.1 - Chronic obstructive pulmonary disease with (acute) exacerbation SNOMED: 008478790 (2) HTN (hypertension) ICD Codes: I10 - Essential (primary) hypertension SNOMED: 49085148 (3) Hypoxia ICD Codes: R09.02 - Hypoxemia SNOMED: 579505864 (4) Elevated troponin ICD Codes: R74.8 - Abnormal levels of other serum enzymes SNOMED: 039235382, 969871311, 928536966 (5) Renal insufficiency ICD Codes: N28.9 - Disorder of kidney and ureter, unspecified SNOMED: 677173253, 020276247 (6) Respiratory failure ICD Codes: J96.90 - Respiratory failure, unspecified, unspecified whether with hypoxia or hypercapnia SNOMED: 191741636 Qualifiers: Qualified Codes: J96.02 - Acute respiratory failure with hypercapnia (7) Right lower lobe pneumonia ICD Codes: J18.1 - Lobar pneumonia, unspecified organism SNOMED: 686499498 Qualifiers: Qualified Codes: J18.1 - Lobar pneumonia, unspecified organism Status: stable, progressing Assessment/Plan resp rx o2 bipap per pulm- continuous po steroids keep dry monitor cxr no ready for dc to snf but can go to [facility] Subjective ROS Limited/Unobtainable: No Constitutional: Reports: malaise, weakness HEENT: Reports: no symptoms Cardiovascular: Reports: no symptoms Respiratory: Reports: cough, shortness of breath Gastrointestinal/Abdominal: Reports: no symptoms Genitourinary: Reports: no symptoms Neurologic/Psychiatric: Reports: no symptoms Endocrine: Reports: no symptoms Hematologic/Lymphatic: Reports: anemia Allergies: Coded Allergies: No Known Allergies (Unverified , 12/10/15) All Systems: reviewed and negative except above Subjective no new complaints. less sob.. no fevers or chills. no chest pain. currently off bipap eating breakfast. remains on continuous atc bipap . Objective Last 24 Hour Vital Signs Date Time Temp Pulse Resp B/P (MAP) Pulse Ox O2 Delivery O2 Flow Rate FiO2 03/28/18 16:00 98.4 104 22 148/76 (100) 96 03/28/18 16:00 2.0 03/28/18 16:00 Nasal Cannula 2.0 Nasal Cannula 2.0 03/28/18 15:42 90 18 99 Nasal Cannula 2.0 28 03/28/18 15:32 92 18 98 Nasal Cannula 2.0 28 03/28/18 12:00 92 03/28/18 12:00 2.0 03/28/18 12:00 Nasal Cannula 2.0 Nasal Cannula 2.0 03/28/18 12:00 97.9 108 21 152/79 (103) 97 03/28/18 10:49 94 18 99 Nasal Cannula 2.0 28 03/28/18 10:42 94 18 98 Nasal Cannula 2.0 28 03/28/18 08:00 2.0 03/28/18 08:00 Nasal Cannula 2.0 Nasal Cannula 2.0 03/28/18 08:00 98.2 101 22 150/75 (100) 98 03/28/18 08:00 99 03/28/18 07:45 91 18 99 Nasal Cannula 2.0 28 03/28/18 07:38 Nasal Cannula 2.0 28 03/28/18 07:38 91 18 98 Nasal Cannula 2.0 28 03/28/18 07:38 97 Nasal Cannula 2.0 28 03/28/18 04:00 Nasal Cannula 2.0 Nasal Cannula 2.0 03/28/18 04:00 97.9 100 16 155/86 (109) 99 03/28/18 04:00 122 03/28/18 04:00 2.0 03/28/18 03:11 93 18 99 Nasal Cannula 2.0 28 03/28/18 03:00 94 18 98 Nasal Cannula 2.0 28 03/28/18 00:00 2.0 03/28/18 00:00 108 03/28/18 00:00 97.9 124 16 159/98 (118) 97 03/28/18 00:00 Nasal Cannula 2.0 Nasal Cannula 2.0 03/27/18 23:27 103 18 99 Nasal Cannula 2.0 28 03/27/18 23:17 104 18 98 Nasal Cannula 2.0 28 03/27/18 20:00 98 03/27/18 20:00 2.0 03/27/18 20:00 Nasal Cannula 2.0 Nasal Cannula 2.0 03/27/18 20:00 97.7 106 18 142/73 (96) 97 03/27/18 19:52 98 18 99 Nasal Cannula 2.0 28 03/27/18 19:42 106 18 97 Nasal Cannula 2.0 28 03/27/18 19:42 97 Nasal Cannula 2.0 28 03/27/18 19:42 Nasal Cannula 2.0 Intake and Output 03/27/18 03/28/18 19:00 07:00 Intake Total 350 ml 350 ml Output Total 400 ml Balance 350 ml -50 ml Intake Oral 350 ml 350 ml Output Urine Total 400 ml # Voids 2 # Bowel Movements 2 2 Laboratory Tests 03/28/18 03:20: White Blood Count 19.1H, Red Blood Count 4.31, Hemoglobin 12.0, Hematocrit 38.3 , Mean Corpuscular Volume 89, Mean Corpuscular Hemoglobin 27.9, Mean Corpuscular Hemoglobin Concent 31.4L, Red Cell Distribution Width 14.8, Platelet Count 264, Mean Platelet Volume 6.8, Neutrophils (%) (Auto) , Lymphocytes (%) (Auto) , Monocytes (%) (Auto) , Eosinophils (%) (Auto) , Basophils (%) (Auto) , Differential Total Cells Counted 100, Neutrophils % ( Manual) 82H, Lymphocytes % (Manual) 12L, Monocytes % (Manual) 6, Eosinophils % ( Manual) 0, Basophils % (Manual) 0, Band Neutrophils 0, Platelet Estimate Adequate, Platelet Morphology Normal, Hypochromasia 1+, Anisocytosis 1+, Sodium Level 139, Potassium Level 4.2, Chloride Level 101, Carbon Dioxide Level 33H, Anion Gap 5, Blood Urea Nitrogen 16, Creatinine 0.5L, Estimat Glomerular Filtration Rate , Glucose Level 113H, Calcium Level 9.4, Total Bilirubin 0.2, Aspartate Amino Transf (AST/SGOT) 15, Alanine Aminotransferase (ALT/SGPT) 23, Alkaline Phosphatase 83, Total Protein 6.9, Albumin 2.6L, Globulin 4.3, Albumin/ Globulin Ratio 0.6L Height (Feet): 5 Height (Inches): 6.00 Weight (Pounds): 215 Objective General Appearance: WD/WN, resting. on bipap, opens eyes. alert. follows commands Neck: supple Cardiovascular: regular rhythm Respiratory/Chest: lungs mostly clear, few rhonchi Abdomen: normal bowel sounds, non tender, soft, no organomegaly Edema: no edema noted Arm (L), no edema noted Arm (R), no edema noted Leg (L), no edema noted Leg (R), no edema noted Pedal (L), no edema noted Pedal (R), no edema noted Generalized Manan Byrd MD Mar 28, 2018 17:20
[2018-03-28 20:00] VITALS: BP 130/78
[2018-03-29] VITALS: BP 160/94
[2018-03-29] MEDS: Albuterol/Ipratropium 3ml neb HHN SCH ×4 (03:15→15:22)
[2018-03-29 04:00] VITALS: BP 151/81
[2018-03-29 08:00] VITALS: BP 161/72
--- NOTE | 2018-03-29 09:28 | General Progress Note ---
Assessment/Plan Problem List: (1) COPD exacerbation ICD Codes: J44.1 - Chronic obstructive pulmonary disease with (acute) exacerbation SNOMED: 633113001 (2) HTN (hypertension) ICD Codes: I10 - Essential (primary) hypertension SNOMED: 45611489 (3) Hypoxia ICD Codes: R09.02 - Hypoxemia SNOMED: 679753022 (4) Elevated troponin ICD Codes: R74.8 - Abnormal levels of other serum enzymes SNOMED: 619446959, 148955464, 238482302 (5) Renal insufficiency ICD Codes: N28.9 - Disorder of kidney and ureter, unspecified SNOMED: 232702923, 385948179 (6) Respiratory failure ICD Codes: J96.90 - Respiratory failure, unspecified, unspecified whether with hypoxia or hypercapnia SNOMED: 710533221 Qualifiers: Qualified Codes: J96.02 - Acute respiratory failure with hypercapnia (7) Right lower lobe pneumonia ICD Codes: J18.1 - Lobar pneumonia, unspecified organism SNOMED: 757469899 Qualifiers: Qualified Codes: J18.1 - Lobar pneumonia, unspecified organism Status: stable, progressing Assessment/Plan resp rx o2 bipap per pulm- continuous po steroids keep dry monitor cxr check UA cs no ready for dc to snf but can go to [facility] Subjective ROS Limited/Unobtainable: No Constitutional: Reports: malaise, weakness HEENT: Reports: no symptoms Cardiovascular: Reports: no symptoms Respiratory: Reports: no symptoms Gastrointestinal/Abdominal: Reports: no symptoms Genitourinary: Reports: no symptoms Neurologic/Psychiatric: Reports: no symptoms Endocrine: Reports: no symptoms Hematologic/Lymphatic: Reports: no symptoms Allergies: Coded Allergies: No Known Allergies (Unverified , 12/10/15) All Systems: reviewed and negative except above Subjective no new complaints. less sob.. no fevers or chills. no chest pain. refused bipap last night. Objective Last 24 Hour Vital Signs Date Time Temp Pulse Resp B/P (MAP) Pulse Ox O2 Delivery O2 Flow Rate FiO2 03/29/18 08:00 98.0 110 19 161/72 (101) 99 03/29/18 08:00 2.0 03/29/18 08:00 Nasal Cannula 2.0 Nasal Cannula 2.0 03/29/18 07:07 68 16 100 Nasal Cannula 2.0 28 03/29/18 06:58 Nasal Cannula 2.0 28 03/29/18 06:58 98 Nasal Cannula 2.0 28 03/29/18 06:58 68 18 98 Nasal Cannula 2.0 28 03/29/18 04:00 98.9 104 20 151/81 (104) 97 03/29/18 04:00 2.0 03/29/18 04:00 Nasal Cannula 2.0 Nasal Cannula 2.0 03/29/18 03:42 105 03/29/18 03:30 92 16 99 Nasal Cannula 2.0 28 03/29/18 03:20 96 18 97 Nasal Cannula 2.0 28 03/29/18 00:00 Nasal Cannula 2.0 Nasal Cannula 2.0 03/29/18 00:00 2.0 03/29/18 00:00 98.0 90 20 160/94 (116) 97 03/28/18 23:38 98 03/28/18 23:10 98 16 99 Nasal Cannula 2.0 28 03/28/18 23:00 102 18 97 Nasal Cannula 2.0 28 03/28/18 20:22 98.4 03/28/18 20:00 Nasal Cannula 2.0 Nasal Cannula 2.0 03/28/18 20:00 98.0 96 20 130/78 (95) 96 03/28/18 20:00 2.0 03/28/18 19:59 103 03/28/18 19:11 106 18 98 Nasal Cannula 2.0 28 03/28/18 19:01 Nasal Cannula 2.0 28 03/28/18 19:01 107 20 96 Nasal Cannula 2.0 28 03/28/18 19:00 96 Nasal Cannula 2.0 28 03/28/18 16:00 98.4 104 22 148/76 (100) 96 03/28/18 16:00 2.0 03/28/18 16:00 Nasal Cannula 2.0 Nasal Cannula 2.0 03/28/18 16:00 100 03/28/18 15:42 90 18 99 Nasal Cannula 2.0 28 03/28/18 15:32 92 18 98 Nasal Cannula 2.0 28 03/28/18 12:00 92 03/28/18 12:00 2.0 03/28/18 12:00 Nasal Cannula 2.0 Nasal Cannula 2.0 03/28/18 12:00 97.9 108 21 152/79 (103) 97 03/28/18 10:49 94 18 99 Nasal Cannula 2.0 28 03/28/18 10:42 94 18 98 Nasal Cannula 2.0 28 Intake and Output 03/28/18 03/29/18 19:00 07:00 Intake Total 480 ml 220 ml Balance 480 ml 220 ml Intake Oral 480 ml 220 ml # Voids 3 2 # Bowel Movements 2 2 Height (Feet): 5 Height (Inches): 6.00 Weight (Pounds): 218 Objective General Appearance: WD/WN, resting. on bipap, opens eyes. alert. follows commands Neck: supple Cardiovascular: regular rhythm Respiratory/Chest: lungs mostly clear, few rhonchi Abdomen: normal bowel sounds, non tender, soft, no organomegaly Edema: no edema noted Arm (L), no edema noted Arm (R), no edema noted Leg (L), no edema noted Leg (R), no edema noted Pedal (L), no edema noted Pedal (R), no edema noted Generalized Manan Byrd MD Mar 29, 2018 09:28
[2018-03-29 12:00] VITALS: BP 146/81
--- NOTE | 2018-03-29 12:22 | Urology Progress Note ---
Assessment/Plan Assessment/Plan 1. Gross hematuria, improved. 2. Urinary retention hx. 3. Probable neurogenic bladder. 4. Pyuria. 5. Proteinuria. 6. Possible hemorrhagic cystitis. monitor clinically no active bleeding s/p abx off anticoagulation, ok to resume if needed monitor h/h cysto later consider CT check urine cx PRN check PVR PRN d/w primary team Subjective Allergies: Coded Allergies: No Known Allergies (Unverified , 12/10/15) Subjective all noted, feels fair, urine reported grossly clear Objective Last 24 Hour Vital Signs Date Time Temp Pulse Resp B/P (MAP) Pulse Ox O2 Delivery O2 Flow Rate FiO2 03/29/18 12:00 2.0 03/29/18 12:00 Nasal Cannula 2.0 Nasal Cannula 2.0 03/29/18 11:39 93 16 99 Nasal Cannula 2.0 28 03/29/18 11:30 97 18 95 Nasal Cannula 2.0 28 03/29/18 08:00 98.0 110 19 161/72 (101) 99 03/29/18 08:00 2.0 03/29/18 08:00 102 03/29/18 08:00 Nasal Cannula 2.0 Nasal Cannula 2.0 03/29/18 07:07 68 16 100 Nasal Cannula 2.0 28 03/29/18 06:58 Nasal Cannula 2.0 28 03/29/18 06:58 98 Nasal Cannula 2.0 28 03/29/18 06:58 68 18 98 Nasal Cannula 2.0 28 03/29/18 04:00 98.9 104 20 151/81 (104) 97 03/29/18 04:00 2.0 03/29/18 04:00 Nasal Cannula 2.0 Nasal Cannula 2.0 03/29/18 03:42 105 03/29/18 03:30 92 16 99 Nasal Cannula 2.0 28 03/29/18 03:20 96 18 97 Nasal Cannula 2.0 28 03/29/18 00:00 Nasal Cannula 2.0 Nasal Cannula 2.0 03/29/18 00:00 2.0 03/29/18 00:00 98.0 90 20 160/94 (116) 97 03/28/18 23:38 98 03/28/18 23:10 98 16 99 Nasal Cannula 2.0 28 03/28/18 23:00 102 18 97 Nasal Cannula 2.0 28 03/28/18 20:22 98.4 03/28/18 20:00 Nasal Cannula 2.0 Nasal Cannula 2.0 03/28/18 20:00 98.0 96 20 130/78 (95) 96 03/28/18 20:00 2.0 03/28/18 19:59 103 03/28/18 19:11 106 18 98 Nasal Cannula 2.0 28 03/28/18 19:01 Nasal Cannula 2.0 28 03/28/18 19:01 107 20 96 Nasal Cannula 2.0 28 03/28/18 19:00 96 Nasal Cannula 2.0 28 03/28/18 16:00 98.4 104 22 148/76 (100) 96 03/28/18 16:00 2.0 03/28/18 16:00 Nasal Cannula 2.0 Nasal Cannula 2.0 03/28/18 16:00 100 03/28/18 15:42 90 18 99 Nasal Cannula 2.0 28 03/28/18 15:32 92 18 98 Nasal Cannula 2.0 28 Intake and Output 03/28/18 03/29/18 18:59 06:59 Intake Total 480 ml 220 ml Balance 480 ml 220 ml Intake Oral 480 ml 220 ml # Voids 3 2 # Bowel Movements 2 2 Microbiology Date/Time Source Procedure Growth Status 02/03/18 15:30 Blood Blood Culture - Final NO GROWTH AFTER 5 DAYS Complete 02/20/18 18:40 Stool Clostridium difficile Toxin Assay - Final Complete 02/20/18 12:50 Urine,Clean Catch Urine Culture - Final NO GROWTH AFTER 48 HOURS Complete 02/03/18 15:30 Rectal Mucosa - Final NO CARBAPENEM-RESISTANT ENTEROBACTERI... Complete Current Medications Medications (Trade) Dose Ordered Sig/Isabella Route PRN Reason Start Time Stop Time Status Last Admin Dose Admin Acetaminophen (Tylenol) 650 mg Q6H PRN ORAL Mild Pain/Temp > 100.5 03/15/18 11:18 04/05/18 11:17 03/28/18 19:52 Albuterol/ Ipratropium (Albuterol/ Ipratropium) 3 ml Q4HRT HHN 03/24/18 19:00 03/29/18 18:59 03/29/18 11:33 Bisacodyl (Dulcolax) 10 mg DAILYPRN PRN RECTAL Constipation 03/15/18 11:18 04/01/18 11:17 03/18/18 08:49 Diphenhydramine HCl (Benadryl) 25 mg Q6H PRN ORAL Itching 03/15/18 12:15 04/05/18 06:14 03/28/18 19:51 Ondansetron HCl (Zofran) 4 mg Q4H PRN IVP Nausea & Vomiting 03/16/18 09:00 04/15/18 08:59 03/16/18 08:59 Prednisone (predniSONE) 20 mg DAILY ORAL 03/29/18 09:00 04/21/18 08:59 03/29/18 08:48 Height (Feet): 5 Height (Inches): 6.00 Weight (Pounds): 218 Objective exam stable renal u/s (02/19) noted last CXR noted Spenser Marc MD Mar 29, 2018 12:22
--- NOTE | 2018-03-29 12:36 | Pulmonology Progress Note ---
Assessment/Plan Assessment/Plan PULMONARY PROGRESS NOTE Assessment/Plan IMPRESSION: Acute on chronic respiratory failure, COPD with acute exacerbation, chronic respiratory acidosis and associated hypoxemia, cardiomegaly, pleural effusion and pulmonary edema, protein-calorie malnutrition. loculated pleural effusion likely PLAN exam reviewed and same respiratory care - optimized, improving BIPAP as is PRN nutrition DVT prophylaxis monitor acid base closely ABG noted and somewhat improved trilogy on discharge awaiting LTAC medications/laboratory data/nursing notes reviewed in detail note reviewed and edited care discussed with RN and RT Vital Signs Noted Objective: GENERAL: no distress; on oxygen no distress; appears comfortable and awake NECK: Supple. No adenopathy. No jugular venous distention. LUNGS: Moderate breath sounds. no rhonchi. No wheezes. stable and same CARDIAC: S1 and S2. Regular rhythm without murmurs, rubs, or gallops. ABDOMEN: Soft, nontender, nondistended. no HSM; EXTREMITIES: No cyanosis, clubbing; trace edema. NEUROLOGIC: Grossly nonfocal, awake alert reviewed and examined Labs Test 03/24/18 09:45 03/26/18 09:25 03/26/18 09:32 Arterial Blood pH 7.394 (7.350-7.450) 7.518 (7.350-7.450) Arterial Blood Partial Pressure CO2 71.4 mmHg (35.0-45.0) 43.2 mmHg (35.0-45.0) Arterial Blood Partial Pressure O2 70.5 mmHg (75.0-100.0) 94.6 mmHg (75.0-100.0) Arterial Blood HCO3 42.6 mmol/L (22.0-26.0) 34.3 mmol/L (22.0-26.0) Arterial Blood Oxygen Saturation 94.4 % (95-100) 97.4 % (95-100) Arterial Blood Base Excess 14.2 (-2-2) 10.3 (-2-2) Tarun Test Positive Positive Sodium Level 140 MMOL/L (136-145) Potassium Level 3.2 MMOL/L (3.5-5.1) Chloride Level 98 MMOL/L (98-107) Carbon Dioxide Level 36 MMOL/L (21-32) Anion Gap 7 mmol/L (5-15) Blood Urea Nitrogen 14 mg/dL (7-18) Creatinine 0.6 MG/DL (0.55-1.30) Estimat Glomerular Filtration Rate mL/min (>60) Glucose Level 126 MG/DL (74-106) Calcium Level 9.4 MG/DL (8.5-10.1) Total Bilirubin 0.2 MG/DL (0.2-1.0) Aspartate Amino Transf (AST/SGOT) 17 U/L (15-37) Alanine Aminotransferase (ALT/SGPT) 23 U/L (12-78) Alkaline Phosphatase 78 U/L (46-116) Total Protein 6.6 G/DL (6.4-8.2) Albumin 2.4 G/DL (3.4-5.0) Globulin 4.2 g/dL Albumin/Globulin Ratio 0.6 (1.0-2.7) Subjective ROS Limited/Unobtainable: No Allergies: Coded Allergies: No Known Allergies (Unverified , 12/10/15) Objective Last 24 Hour Vital Signs Date Time Temp Pulse Resp B/P (MAP) Pulse Ox O2 Delivery O2 Flow Rate FiO2 03/29/18 12:00 2.0 03/29/18 12:00 98.6 100 19 146/81 (102) 97 03/29/18 12:00 Nasal Cannula 2.0 Nasal Cannula 2.0 03/29/18 11:39 93 16 99 Nasal Cannula 2.0 28 03/29/18 11:30 97 18 95 Nasal Cannula 2.0 28 03/29/18 08:00 98.0 110 19 161/72 (101) 99 03/29/18 08:00 2.0 03/29/18 08:00 102 03/29/18 08:00 Nasal Cannula 2.0 Nasal Cannula 2.0 03/29/18 07:07 68 16 100 Nasal Cannula 2.0 28 03/29/18 06:58 Nasal Cannula 2.0 28 03/29/18 06:58 98 Nasal Cannula 2.0 28 03/29/18 06:58 68 18 98 Nasal Cannula 2.0 28 03/29/18 04:00 98.9 104 20 151/81 (104) 97 03/29/18 04:00 2.0 03/29/18 04:00 Nasal Cannula 2.0 Nasal Cannula 2.0 03/29/18 03:42 105 03/29/18 03:30 92 16 99 Nasal Cannula 2.0 28 03/29/18 03:20 96 18 97 Nasal Cannula 2.0 28 03/29/18 00:00 Nasal Cannula 2.0 Nasal Cannula 2.0 03/29/18 00:00 2.0 03/29/18 00:00 98.0 90 20 160/94 (116) 97 03/28/18 23:38 98 03/28/18 23:10 98 16 99 Nasal Cannula 2.0 28 03/28/18 23:00 102 18 97 Nasal Cannula 2.0 28 03/28/18 20:22 98.4 03/28/18 20:00 Nasal Cannula 2.0 Nasal Cannula 2.0 03/28/18 20:00 98.0 96 20 130/78 (95) 96 03/28/18 20:00 2.0 03/28/18 19:59 103 03/28/18 19:11 106 18 98 Nasal Cannula 2.0 28 03/28/18 19:01 Nasal Cannula 2.0 28 03/28/18 19:01 107 20 96 Nasal Cannula 2.0 28 03/28/18 19:00 96 Nasal Cannula 2.0 28 03/28/18 16:00 98.4 104 22 148/76 (100) 96 03/28/18 16:00 2.0 03/28/18 16:00 Nasal Cannula 2.0 Nasal Cannula 2.0 03/28/18 16:00 100 03/28/18 15:42 90 18 99 Nasal Cannula 2.0 28 03/28/18 15:32 92 18 98 Nasal Cannula 2.0 28 Intake and Output 03/28/18 03/29/18 18:59 06:59 Intake Total 480 ml 220 ml Balance 480 ml 220 ml Intake Oral 480 ml 220 ml # Voids 3 2 # Bowel Movements 2 2 Current Medications Medications (Trade) Dose Ordered Sig/Isabella Route PRN Reason Start Time Stop Time Status Last Admin Dose Admin Acetaminophen (Tylenol) 650 mg Q6H PRN ORAL Mild Pain/Temp > 100.5 03/15/18 11:18 04/05/18 11:17 03/28/18 19:52 Albuterol/ Ipratropium (Albuterol/ Ipratropium) 3 ml Q4HRT HHN 03/24/18 19:00 03/29/18 18:59 03/29/18 11:33 Bisacodyl (Dulcolax) 10 mg DAILYPRN PRN RECTAL Constipation 03/15/18 11:18 04/01/18 11:17 03/18/18 08:49 Diphenhydramine HCl (Benadryl) 25 mg Q6H PRN ORAL Itching 03/15/18 12:15 04/05/18 06:14 03/28/18 19:51 Ondansetron HCl (Zofran) 4 mg Q4H PRN IVP Nausea & Vomiting 03/16/18 09:00 04/15/18 08:59 03/16/18 08:59 Prednisone (predniSONE) 20 mg DAILY ORAL 03/29/18 09:00 04/21/18 08:59 03/29/18 08:48 Ashvin Serrano MD Mar 29, 2018 12:36
[2018-03-29 16:00] VITALS: BP 157/88
--- NOTE | 2018-03-30 00:15 | Progress Note ---
DATE: 03/26/2018 CARDIOLOGY PROGRESS NOTE Late entry for 03/26/2018. SUBJECTIVE: Less shortness of breath. Periodically on BiPAP support. OBJECTIVE: VITAL SIGNS: Blood pressure 137/70, pulse 86, and respirations 20. LUNGS: Diminished breath sounds. No wheezing. HEART: Regular rhythm and rate. Normal S1, S2 with a fourth heart sound. ABDOMEN: Soft. EXTREMITIES: No edema. LABORATORY DATA: Potassium 3.2. ABG, pH 7.51, pCO2 42, and pO2 96. IMPRESSION: 1. Chronic obstructive pulmonary disease. 2. Status post respiratory failure. 3. Compensated respiratory acidosis. 4. Acute myocardial ischemia, recovered. 5. Hypertensive heart disease. 6. Paroxysmal atrial ectopy. 7. Hypokalemia. PLAN: 1. Respiratory therapy. 2. BiPAP support as needed. 3. Replace potassium. 4. Check magnesium. 5. Maintain diltiazem for arrhythmia suppression. 6. Monitor volume status and cardiorenal parameters. Ashvin Wu M.D. DR: COOPRE JOB#: [id number] CC:
--- NOTE | 2018-03-30 00:45 | Progress Note ---
DATE: 03/29/2018 CARDIOLOGY PROGRESS NOTE SUBJECTIVE: Discharge plan to [facility] noted for long-term pulmonary treatment. The patient refused BiPAP yesterday. She appears to be somewhat congested today, but in no acute distress. She remains on oral steroids. Monitored rhythm sinus and sinus tachycardia with occasional atrial ectopic. OBJECTIVE: VITAL SIGNS: Blood pressure 151/81, pulse 104, respirations 20. LUNGS: Coarse breath sounds. No wheezing. CARDIOVASCULAR: Regular rhythm and rate. Normal S1, S2. ABDOMEN: Soft. EXTREMITIES: No edema. IMPRESSION: 1. Secondary sinus tachycardia. 2. Paroxysmal atrial ectopy. 3. Respiratory failure. 4. COPD. 5. Acute on chronic respiratory acidosis. 6. Status post acute myocardial ischemia. PLAN: 1. Continue diltiazem. 2. Monitor volume status. 3. Follow up on cardiorenal function. 4. Steroid taper as able. 5. Bronchodilators. 6. Limit beta-agonist with tachycardia. 7. Stable for subacute facility. Ashvin Wu M.D. DR: FELICIANO JOB#: [id number] CC:
--- NOTE | 2018-03-30 00:45 | Progress Note ---
DATE: 03/28/2018 CARDIOLOGY PROGRESS NOTE Late entry for March 28, 2018. SUBJECTIVE: No chest pain. Less shortness of breath. Off BiPAP for meals. Otherwise, remains on BiPAP around the clock. OBJECTIVE: VITAL SIGNS: Blood pressure 148/76, pulse 104, respiratory rate 22, and afebrile. LUNGS: Diminished breath sounds. CARDIAC: Regular rhythm. Rapid rate. Normal S1 and S2. ABDOMEN: Soft. EXTREMITIES: No edema. LABORATORY AND DIAGNOSTIC DATA: Monitored sinus and sinus tachycardia with atrial ectopics, nonsustained. White count 19 and hemoglobin 12. Potassium 4.2, BUN 16, and creatinine 0.5. Albumin 2.6. IMPRESSION: 1. COPD. 2. Respiratory failure. 3. Respiratory acidosis, now compensated. 4. Compensatory metabolic alkalosis, corrected. 5. Moderate protein-calorie malnutrition. 6. Paroxysmal atrial ectopy, resolved. 7. Myocardial ischemia. PLAN: 1. Maintain diltiazem for arrhythmia suppression. 2. BiPAP support as needed. 3. Bronchodilators. 4. Respiratory hygiene. 5. Steroid taper. 6. DVT prophylaxis. Ashvin Wu M.D. DR: KADIE JOB#: [id number] CC:
--- NOTE | 2018-03-30 01:15 | Progress Note ---
DATE: 03/27/2018 CARDIOLOGY PROGRESS NOTE Late entry for 03/27/2018 SUBJECTIVE: Status is essentially unchanged requiring BiPAP support mostly at night. OBJECTIVE: VITAL SIGNS: Blood pressure 146/81, pulse 91, respirations 19, and afebrile. Nasal cannula two liters reveals oxygen sats in the 90s. LUNGS: Diminished breath sounds. No wheezing. HEART: Regular rhythm and rate. Normal S1, S2 with a fourth heart sound. ABDOMEN: Soft. EXTREMITIES: Trace edema. IMPRESSION: 1. Chronic obstructive pulmonary disease. 2. Chronic respiratory acidosis, status post acute exacerbation. 3. Acute myocardial ischemia, resolved. 4. Paroxysmal atrial ectopy, mostly suppressed. PLAN: 1. Plan of care in place. 2. We will continue to follow and make adjustments in therapy as clinical condition warrants. 3. Follow up laboratory studies ordered. Ashvin Wu M.D. DR: EDUARDO JOB#: [id number] CC:
== END 2018-03-29 20:20 | DRG 130 ==
LOC: EDBD 15:36 → EMR 15:52 → ICU 16:00 → UNDOADMIN 16:00 → EDBEDREQSVC 17:11 → EDBEDREQ 17:11 → 2W 02-06 12:12 → 2E 02-08 17:03 → ICU 02-12 14:45 → 2W 02-19 09:51 → 2E 03-02 18:38 → 4E 03-05 16:59 → 2W 03-15 10:30
PROC: 0BH17EZ Insertion of Endotracheal Airway into Trachea, Via Natural or Artificial Opening (ICD-10-PCS; principal; 2018-02-03)
PROC: 5A1955Z Respiratory Ventilation, Greater than 96 Consecutive Hours (ICD-10-PCS; principal; 2018-02-03)
PROC: 5A1955Z Respiratory Ventilation, Greater than 96 Consecutive Hours (ICD-10-PCS; 2018-02-12)
PROC: 0BH17EZ Insertion of Endotracheal Airway into Trachea, Via Natural or Artificial Opening (ICD-10-PCS; 2018-02-12)
DX: J96.02 Acute respiratory failure with hypercapnia (principal); I21.4 Non-ST elevation (NSTEMI) myocardial infarction; E43 Unspecified severe protein-calorie malnutrition; I50.33 Acute on chronic diastolic (congestive) heart failure; J18.9 Pneumonia, unspecified organism; J90 Pleural effusion, not elsewhere classified; N17.9 Acute kidney failure, unspecified; E87.3 Alkalosis; E87.2 Acidosis; E11.65 Type 2 diabetes mellitus with hyperglycemia; I11.0 Hypertensive heart disease with heart failure; F10.20 Alcohol dependence, uncomplicated; B85.0 Pediculosis due to Pediculus humanus capitis; J44.0 Chronic obstructive pulmonary disease with (acute) lower respiratory infection; J44.1 Chronic obstructive pulmonary disease with (acute) exacerbation; Z95.0 Presence of cardiac pacemaker; Z68.35 Body mass index [BMI] 35.0-35.9, adult; R33.9 Retention of urine, unspecified; N31.9 Neuromuscular dysfunction of bladder, unspecified; B02.9 Zoster without complications; I49.1 Atrial premature depolarization; E83.42 Hypomagnesemia; I47.1 Supraventricular tachycardia; I48.0 Paroxysmal atrial fibrillation; N30.91 Cystitis, unspecified with hematuria
CPT/HCPCS: 31500; 36415; 36600; 71045; 73502; 74018; 74230; 76770; 80048; 80053; 80202; 80307; 80329; 81001; 81003; 82140; 82550; 82803; 82962; 83605; 83690; 83735; 83880; 84100; 84478; 84484; 85007; 85025; 85610; 85730; 87040; 87081; 87086; 87324; 92610; 93005; 93306; 93970; 94002; 94003; 94640; 94660; 94664; 94760; 96365; 96375; 99291; 99292; J2405; J7620; J8499